=== PATIENT | male | born 1960 | race Caucasian/White ===

== ENCOUNTER 2024-08-31 18:38 | Inpatient (IN) | payer MEDICARE ==
[2024-08-31 19:33] LABS: INR 1.7 (<1.2); Prothrombin Time 17.3 sec (10.0-12.5)
[2024-08-31 19:38] LABS: ALT 14 U/L (4-49); African American GFR (CKD) 26 (>60 ml/min/1.73 sqM); Anion Gap 12 mmol/L; Blood Urea Nitrogen 100 mg/dL (9-20); Calcium 7.5 mg/dL (8.4-10.2); Carbon Dioxide 25 mmol/L (22-30); Chloride 103 mmol/L (98-107); Glucose 95 mg/dL (74-99); Lipase 81 U/L (23-300); Non-African American GFR(CKD) 22 (>60 ml/min/1.73 sqM); Sodium 140 mmol/L (137-145)
[2024-08-31 19:40] LABS: AST 91 U/L (17-59); Albumin 2.6 g/dL (3.5-5.0); Alkaline Phosphatase 34 U/L (38-126); Potassium 4.7 mmol/L (3.5-5.1); Total Protein 5.1 g/dL (6.3-8.2)
[2024-08-31 19:47] LABS: Basophils # (A) 0.1 k/uL (0-0.2); Basophils % (A) 1 %; Eosinophils % (A) 0 %; HGB 15.1 gm/dL (13.0-17.5); Lymphocytes # (A) 0.8 k/uL (1.0-4.8); Lymphocytes % (A) 6 %; MCH 29.6 pg (25.0-35.0); MCHC 33.6 g/dL (31.0-37.0); MCV 88.2 fL (80.0-100.0); Mean Platelet Volume 7.9; Monocytes # (A) 0.8 k/uL (0-1.0); Monocytes % (A) 7 %; Neutrophils # (A) 9.9 k/uL (1.3-7.7); Neutrophils % (A) 84 %; Platelet Count 299 k/uL (150-450); RBC 5.11 m/uL (4.30-5.90); RDW 13.7 % (11.5-15.5); WBC 11.7 k/uL (3.8-10.6)
[2024-08-31] MEDS: SODIUM CHLORIDE 0.9% 2,000 ML IV ONE (19:52)
[2024-08-31 19:53] LABS: Influenza A Not Detected (Not Detectd); Influenza B Not Detected (Not Detectd); RSV Not Detected (Not Detectd)
[2024-08-31] MEDS: ACETAMINOPHEN IV (For NPO) 1,000 MG in EMPTY BAG 1 BAG IVPB STA (20:20)
--- NOTE | 2024-08-31 20:28 | XR ---
EXAMINATION TYPE: XR chest 1V portable DATE OF EXAM: 08/31/2024 7:19 PM COMPARISON: None. CLINICAL INDICATION: Male, 63 years old with history of abdominal pain, TECHNIQUE: XR chest 1V portable view(s) obtained. FINDINGS: The heart size is normal. The pulmonary vasculature is normal. Bibasilar infiltrates are present. Correlate for atelectasis. Electronic device overlies left chest IMPRESSION: 1. Bibasilar infiltrates. Correlate for atelectasis. [facility], , 08/31/2024 8:25 PM
[2024-08-31] MEDS: cefTRIAXone IN SWFI 1,000 MG/10 ML SYRINGE IVP STA (20:52)
--- NOTE | 2024-08-31 21:14 | ED ---
SOB HPI - General Chief Complaint: Shortness of Breath Stated Complaint: Flu like symptoms Time Seen by Provider: 08/31/24 18:42 Source: EMS Mode of arrival: EMS - History of Present Illness Initial Comments: 63-year-old male with past medical history of Parkinson's with deep brain stimulator who presents emergency department with nausea, vomiting and increased work of breathing. EMS states that the patient has been sick for the past couple of days. Family did take him to an urgent care yesterday as they were concerned for COVID. Patient had some low blood pressure readings but urgent care sent him home after his swab was negative. He has had some vomiting with lethargy. No reported fevers. EMS reported that the patient had some brown emesis. Patient can minimally provide history due to his respiratory rate of 56. He does have coarse upper airway sounds. No falls. Family states that he was recently hospitalized at [facility] as he was reporting abdominal pain. They found that the patient had "1 functioning kidney". They state that his ki dney function was normal when he left the hospital. He did follow-up with a urologist 1 week ago and had laboratory studies and a urine completed as well as postvoid residuals and the patient had no issues. Patient denies any chest pain. EMS reported that he vomited on the way in and therefore they gave him 4 mg of Zofran. His oxygen saturation was 74%. Patient does not wear oxygen. Remainder of HPI is limited as family is not available for several hours and we have no next of kin listed in the patient's chart - Related Data Home Medications Medication Instructions Recorded Confirmed Atorvastatin [Lipitor] 20 mg PO HS@1800 08/31/24 08/31/24 Carbidopa-Levodopa 25-100 mg 1 tab PO TID@0600,1400,1800 08/31/24 08/31/24 [Sinemet 25-100] atenoloL [Tenormin] 25 mg PO DAILY@0600 08/31/24 08/31/24 Allergies Allergy/AdvReac Type Severity Reaction Status Date / Time No Known Allergies Allergy Verified 08/31/24 20:47 Review of Systems ROS Statement: Those systems with pertinent positive or pertinent negative responses have been documented in the HPI. ROS Other: All systems not noted in ROS Statement are negative. Past Medical History Past Medical History: Hypertension Additional Past Medical History / Comment(s): parkinsons History of Any Multi-Drug Resistant Organisms: None Reported Past Surgical History: No Surgical Hx Reported Additional Past Surgical History / Comment(s): deep brain stimulator Past Psychological History: No Psychological Hx Reported Smoking Status: Former smoker Past Alcohol Use History: Occasional Past Drug Use History: Marijuana General Exam Limitations: altered mental status General appearance: lethargic Head exam: Present: atraumatic, normocephalic, normal inspection ENT exam: Present: mucous membranes dry, other (Dried brown emesis around mouth) Respiratory exam: Present: rhonchi, accessory muscle use, decreased breath sounds, other (Tachypnea) Cardiovascular Exam: Present: normal rhythm, tachycardia, normal heart sounds. Absent: systolic murmur, diastolic murmur, rubs, gallop, clicks GI/Abdominal exam: Present: distended exam: Present: scrotal swelling. Absent: testicular tenderness Neurological exam: Present: altered Psychiatric exam: Present: flat affect Course Vital Signs 08/31/24 08/31/24 08/31/24 18:41 19:21 19:49 Temperature 97.9 F 102.1 F H Pulse Rate 105 H 108 H Respiratory 30 H 56 H Rate Blood Pressure 119/55 85/52 O2 Sat by Pulse 95 91 L Oximetry Fraction of 100 Inspired Oxygen (FIO2) 08/31/24 08/31/24 08/31/24 20:07 21:42 23:30 Temperature 99.3 F 100.0 F H Pulse Rate 101 H 101 H 110 H Respiratory 52 H 38 H 34 H Rate Blood Pressure 105/83 94/66 85/54 O2 Sat by Pulse 90 L 92 L 90 L Oximetry Fraction of Inspired Oxygen (FIO2) 08/31/24 08/31/24 09/01/24 23:47 23:53 00:09 Temperature 99.5 F Pulse Rate 112 H 112 H Respiratory 36 H 28 H Rate Blood Pressure 78/47 101/60 O2 Sat by Pulse 80 L 84 L Oximetry Fraction of 100 Inspired Oxygen (FIO2) Medical Decision Making - Medical Decision Making Was pt. sent in by a medical professional or institution (, PA, ASSESSMENT COORDINATOR, urgent care, hospital, or residential...) When possible be specific @ -No Did you speak to anyone other than the patient for history (EMS, parent, family, police, friend...)? What history was obtained from this source @ -Spoke with EMS for history. I spoke with family when they showed up 2 hours into the patient's visit Did you review nursing and triage notes (agree or disagree)? Why? @ -I reviewed and agree with nursing and triage notes Were old charts reviewed (outside hosp., previous admission, EMS record, old EKG, old radiological studies, urgent care reports/EKG's, residential records)? Report findings @ -No old charts were reviewed Differential Diagnosis (chest pain, altered mental status, abdominal pain women, abdominal pain men, vaginal bleeding, weakness, fever, dyspnea, syncope, headache, dizziness, GI bleed, back pain, seizure, CVA, palpatations, mental health, musculoskeletal)? @ -Differential Dyspnea: Coronary syndrome, arrhythmia, tamponade, asthma, COPD, pulmonary embolism, pneumonia, pneumothorax, pulmonary effusion, anaphylaxis, diabetic ketoacidosis, flailed chest, pulmonary contusion, diaphragmatic rupture, anemia, neuromuscular, this is not meant to be an all-inclusive list. EKG interpreted by me (3pts min.). @ -Yes and demonstrates significant artifact due to stimulator. Rate of 105. QTc of 402 X-rays interpreted by me (1pt min.). @ -Yes which is interpreted to me as bibasilar pneumonia, possible aspiration CT interpreted by me (1pt min.). @ -Yes which demonstrates partial small bowel obstruction U/S interpreted by me (1pt. min.). @ -None done What testing was considered but not performed or refused? (CT, X-rays, U/S, labs)? Why? @ -None What meds were considered but not given or refused? Why? @ -Etomidate and succinylcholine were ordered as patient was tachypneic, hypotensive and minimally responsive. Patient found to have a high temp of 102. He was administered Ofirmev. Patient trialed on a BiPAP and does have improvement in his status. Patient no longer tachycardic, hypotensive or hypoxic. He does answer questions appropriately and therefore intubation is held Did you discuss the management of the patient with other professionals (professionals i.e. , PA, ASSESSMENT COORDINATOR, lab, RT, psych nurse, social work associate, flash ranging crewmember, teacher, consumer safety officer, child support case officer)? Give summary @ - Sheet for admission. Also spoke with Dr. Neal from the ICU due to the critical status of the patient Was smoking cessation discussed for >3mins.? @ -No Was critical care preformed (if so, how long)? @ -Yes, 35 minutes for BiPAP respiratory failure, aspiration, possible small bowel obstruction Were there social determinants of health that impacted care today? How? (Homelessness, low income, unemployed, alcoholism, drug addiction, transportation, low edu. Level, literacy, decrease access to med. care, [facility], rehab)? @ -No Was there de-escalation of care discussed even if they declined (Discuss DNR or withdrawal of care, Hospice)? DNR status @ -No What co-morbidities impacted this encounter? (DM, HTN, Smoking, COPD, CAD, Cancer, CVA, ARF, Chemo, Hep., AIDS, mental health diagnosis, sleep apnea, morbid obesity)? @ -Parkinson's Was patient admitted / discharged? Hospital course, mention meds given and route, prescriptions, significant lab abnormalities, going to OR and other pertinent info. @ -Upon arrival patient seen and evaluated in room 1. History is obtained from EMS. Patient originally on a nonrebreather however oxygen saturations are in the 80s. He is moved to a BiPAP. Patient found to have 102 fever. He is fluid resuscitated and given Ofirmev. We did trial him on the BiPAP and his vital signs do improve. Patient given 2 g Rocephin for suspected sepsis. Source is i dentified after chest x-ray was performed and due to my concern for aspiration I did broaden the antibiotics. Family does show up at this time and provides history. They are agreeable that the patient is a full code. Next of kin is the niece. Patient does have a full-time caregiver. CT is performed due to the history of vomiting. Patient does have a questionable small bowel obstruction. NG tube was placed. I did call to speak with Dr. Neal as patient is critically ill. I spoke to Dr. Lopez for the admission Undiagnosed new problem with uncertain prognosis? @ -No Drug Therapy requiring intensive monitoring for toxicity (Heparin, Nitro, Insulin, Cardizem)? @ -No Were any procedures done? @ -NG tube placement Diagnosis/symptom? @ -Acute hypoxic respiratory failure, BiPAP dependence, suspected aspiration pneumonia, possible small bowel obstruction, history of Parkinson's with deep brain stimulator Acute, or Chronic, or Acute on Chronic? @ -Acute Uncomplicated (without systemic symptoms) or Complicated (systemic symptoms)? @ -Complicated Side effects of treatment? @ -No Exacerbation, Progression, or Severe Exacerbation? @ -No Poses a threat to life or bodily function? How? (Chest pain, [place], [place], pneumonia, PE, COPD, DKA, ARF, appy, cholecystitis, CVA, Diverticulitis, Homicidal, Suicidal, threat to staff... and all critical care pts) @ -Yes this patient is critically ill - Lab Data Result diagrams: 09/02/24 02:30 09/02/24 02:30 Lab Results 08/31/24 08/31/24 08/31/24 Range/Units 18:50 18:55 19:09 WBC 11.7 H (3.8-10.6) k/uL RBC 5.11 (4.30-5.90) m/uL Hgb 15.1 (13.0-17.5) gm/dL Hct 45.0 (39.0-53.0) % MCV 88.2 (80.0-100.0) fL MCH 29.6 (25.0-35.0) pg MCHC 33.6 (31.0-37.0) g/dL RDW 13.7 (11.5-15.5) % Plt Count 299 (150-450) k/uL MPV 7.9 Neutrophils % 84 % Lymphocytes % 6 % Monocytes % 7 % Eosinophils % 0 % Basophils % 1 % Neutrophils # 9.9 H (1.3-7.7) k/uL Lymphocytes # 0.8 L (1.0-4.8) k/uL Monocytes # 0.8 (0-1.0) k/uL Eosinophils # 0.0 (0-0.7) k/uL Basophils # 0.1 (0-0.2) k/uL Manual Slide Review Performed PT (10.0-12.5) sec INR (<1.2) APTT (22.0-30.0) sec Sodium (137-145) mmol/L Potassium (3.5-5.1) mmol/L Chloride (98-107) mmol/L Carbon Dioxide (22-30) mmol/L Anion Gap mmol/L BUN (9-20) mg/dL Creatinine (0.66-1.25) mg/dL Est GFR (CKD-EPI)AfAm (>60 ml/min/1.73 sqM) Est GFR (CKD-EPI)NonAf (>60 ml/min/1.73 sqM) Glucose (74-99) mg/dL Lactic Ac Sepsis Rflx Plasma Lactic Acid Maciel (0.7-2.0) mmol/L Calcium (8.4-10.2) mg/dL Total Bilirubin (0.2-1.3) mg/dL AST (17-59) U/L ALT (4-49) U/L Alkaline Phosphatase (38-126) U/L Total Protein (6.3-8.2) g/dL Albumin (3.5-5.0) g/dL Lipase (23-300) U/L Urine Color Urine Appearance (Clear) Urine pH (5.0-8.0) Ur Specific Colgate (1.001-1.035) Urine Protein (Negative) Urine Glucose (UA) (Negative) Urine Ketones (Negative) Urine Blood (Negative) Urine Nitrite (Negative) Urine Bilirubin (Negative) Urine Urobilinogen (<2.0) mg/dL Ur Leukocyte Esterase (Negative) Influenza Type A (PCR) (Not Detectd) Influenza Type B (PCR) (Not Detectd) RSV (PCR) (Not Detectd) SARS-CoV-2 (PCR) (Not Detectd) Blood Type O Positive Blood Type Confirm O Positive Blood Type Recheck No Previous Record Bld Type Recheck Status CABO Indicated Antibody Screen NEGATIVE Spec Expiration Date 09/03/2024234908/31/24 08/31/24 08/31/24 Range/Units 19:09 19:09 19:09 WBC (3.8-10.6) k/uL RBC (4.30-5.90) m/uL Hgb (13.0-17.5) gm/dL Hct (39.0-53.0) % MCV (80.0-100.0) fL MCH (25.0-35.0) pg MCHC (31.0-37.0) g/dL RDW (11.5-15.5) % Plt Count (150-450) k/uL MPV Neutrophils % % Lymphocytes % % Monocytes % % Eosinophils % % Basophils % % Neutrophils # (1.3-7.7) k/uL Lymphocytes # (1.0-4.8) k/uL Monocytes # (0-1.0) k/uL Eosinophils # (0-0.7) k/uL Basophils # (0-0.2) k/uL Manual Slide Review PT 17.3 H (10.0-12.5) sec INR 1.7 H (<1.2) APTT 24.0 (22.0-30.0) sec Sodium 140 (137-145) mmol/L Potassium 4.7 (3.5-5.1) mmol/L Chloride 103 (98-107) mmol/L Carbon Dioxide 25 (22-30) mmol/L Anion Gap 12 mmol/L BUN 100 H (9-20) mg/dL Creatinine 2.84 H (0.66-1.25) mg/dL Est GFR (CKD-EPI)AfAm 26 (>60 ml/min/1.73 sqM) Est GFR (CKD-EPI)NonAf 22 (>60 ml/min/1.73 sqM) Glucose 95 (74-99) mg/dL Lactic Ac Sepsis Rflx Plasma Lactic Acid Maciel 2.7 H* (0.7-2.0) mmol/L Calcium 7.5 L (8.4-10.2) mg/dL Total Bilirubin 2.0 H (0.2-1.3) mg/dL AST 91 H (17-59) U/L ALT 14 (4-49) U/L Alkaline Phosphatase 34 L (38-126) U/L Total Protein 5.1 L (6.3-8.2) g/dL Albumin 2.6 L (3.5-5.0) g/dL Lipase 81 (23-300) U/L Urine Color Urine Appearance (Clear) Urine pH (5.0-8.0) Ur Specific Colgate (1.001-1.035) Urine Protein (Negative) Urine Glucose (UA) (Negative) Urine Ketones (Negative) Urine Blood (Negative) Urine Nitrite (Negative) Urine Bilirubin (Negative) Urine Urobilinogen (<2.0) mg/dL Ur Leukocyte Esterase (Negative) Influenza Type A (PCR) (Not Detectd) Influenza Type B (PCR) (Not Detectd) RSV (PCR) (Not Detectd) SARS-CoV-2 (PCR) (Not Detectd) Blood Type Blood Type Confirm Blood Type Recheck Bld Type Recheck Status Antibody Screen Spec Expiration Date 08/31/24 08/31/24 08/31/24 Range/Units 19:09 19:41 21:04 WBC (3.8-10.6) k/uL RBC (4.30-5.90) m/uL Hgb (13.0-17.5) gm/dL Hct (39.0-53.0) % MCV (80.0-100.0) fL MCH (25.0-35.0) pg MCHC (31.0-37.0) g/dL RDW (11.5-15.5) % Plt Count (150-450) k/uL MPV Neutrophils % % Lymphocytes % % Monocytes % % Eosinophils % % Basophils % % Neutrophils # (1.3-7.7) k/uL Lymphocytes # (1.0-4.8) k/uL Monocytes # (0-1.0) k/uL Eosinophils # (0-0.7) k/uL Basophils # (0-0.2) k/uL Manual Slide Review PT (10.0-12.5) sec INR (<1.2) APTT (22.0-30.0) sec Sodium (137-145) mmol/L Potassium (3.5-5.1) mmol/L Chloride (98-107) mmol/L Carbon Dioxide (22-30) mmol/L Anion Gap mmol/L BUN (9-20) mg/dL Creatinine (0.66-1.25) mg/dL Est GFR (CKD-EPI)AfAm (>60 ml/min/1.73 sqM) Est GFR (CKD-EPI)NonAf (>60 ml/min/1.73 sqM) Glucose (74-99) mg/dL Lactic Ac Sepsis Rflx Y Plasma Lactic Acid Maciel (0.7-2.0) mmol/L Calcium (8.4-10.2) mg/dL Total Bilirubin (0.2-1.3) mg/dL AST (17-59) U/L ALT (4-49) U/L Alkaline Phosphatase (38-126) U/L Total Protein (6.3-8.2) g/dL Albumin (3.5-5.0) g/dL Lipase (23-300) U/L Urine Color Yellow Urine Appearance Clear (Clear) Urine pH 5.5 (5.0-8.0) Ur Specific Colgate 1.026 (1.001-1.035) Urine Protein Trace H (Negative) Urine Glucose (UA) Negative (Negative) Urine Ketones Negative (Negative) Urine Blood Negative (Negative) Urine Nitrite Negative (Negative) Urine Bilirubin 1+ H (Negative) Urine Urobilinogen 4.0 (<2.0) mg/dL Ur Leukocyte Esterase Negative (Negative) Influenza Type A (PCR) Not Detected (Not Detectd) Influenza Type B (PCR) Not Detected (Not Detectd) RSV (PCR) Not Detected (Not Detectd) SARS-CoV-2 (PCR) Not Detected (Not Detectd) Blood Type Blood Type Confirm Blood Type Recheck Bld Type Recheck Status Antibody Screen Spec Expiration Date Disposition Clinical Impression: Hypoxia, Aspiration pneumonia, Vomiting, BiPAP (biphasic positive airway pressure) dependence, Fever, Urinary retention Disposition: ADMITTED IP TO THIS HOSP Condition: Serious Is patient prescribed a controlled substance at d/c from ED?: No Time of Disposition: 21:35 Decision to Admit Reason: Admit from EC Decision Date: 08/31/24 Decision Time: 21:36
[2024-08-31 21:17] LABS: Appearance,Urine Clear (Clear); Bilirubin,Urine 1+ (Negative); Blood,Urine Negative (Negative); Color,Urine Yellow; Glucose,Urine (UA) Negative (Negative); Ketones,Urine Negative (Negative); Leukocyte Esterase,Urine Negative (Negative); Nitrite,Urine Negative (Negative); PH, Urine 5.5 (5.0-8.0); Protein,Urine Trace (Negative); Specific Gravity,Urine 1.026 (1.001-1.035)
[2024-08-31] MEDS ORDERED: NALOXONE 0.4 MG/ML 1 ML VIAL IV PRN (21:36)
[2024-08-31] MEDS: ETOMIDATE 2 MG/ML 10 ML VIAL IVP STA (22:34)
[2024-08-31] MEDS: ROCURONIUM 10 MG/ML (5 ML VIAL) IV ONE (22:34)
[2024-08-31] MEDS: LEVOFLOXACIN 750MG-D5W PMX 750 MG in DEXTROSE/WATER 1 150ML.BAG IVPB SCH (22:39)
--- NOTE | 2024-08-31 22:39 | CT ---
EXAMINATION TYPE: CT abdomen pelvis wo con DATE OF EXAM: 08/31/2024 9:51 PM COMPARISON: None. CLINICAL INDICATION: Male, 63 years old with history of vomiting, From home, flu like symptoms, hypox ic TECHNIQUE: Axial images were obtained from above the diaphragm to the pubic rami in the axial plane a t 5 mm thick sections. Reconstructed images are reviewed on the computer in the coronal plane. CONTRAST: mL of . Study performed without Oral Contrast DLP: 1139.4 mGycm, Automated exposure control for dose reduction was used. FINDINGS: Limited CT sections are obtained the lung bases. Consolidation is in the left lower lobe. Small bila teral pleural effusions are present. Some consolidation with air bronchograms may be in the right low er lobe. Coronary artery calcification is present.. CT ABDOMEN: Liver: Normal Spleen: Normal Pancreas: Normal Adrenal glands: The adrenal glands are normal. Gallbladder: Normal Kidneys: No masses are evident. Marked hydronephrosis is present on the right kidney. Hydroureter is not identified below the renal pelvis. Mild left hydronephrosis or hydroureter evident. No cysts are present. Aorta: Vascular calcification is within the aorta. Inferior vena cava: Normal. CT PELVIS: There is a right inguinal hernia contains a loop of small bowel. Complete Obstruction is n ot clearly identified. However, there may be some mild obstruction or ileus prominent fluid-filled sm all bowel loops. Colon has a normal appearance without evidence of obstruction. Fecal debris is withi n the ascending and transverse colon with mild debris in the descending colon Fecal debris is within the distal colon. This study is now oral contrast limiting bowel evaluation. Appendix: Normal as visualized. Urinary bladder: Decompressed with a Davenport catheter Genitourinary structures: Prostate appears normal Osseous structures: No suspicious lytic or sclerotic lesions. Facet degenerative changes are present. This is contributing to spinal canal narrowing within the lower lumbar spine. IMPRESSION: 1. Bibasilar consolidations with air bronchograms and pleural effusions. Correlate for pneumonia and atelectasis. 2. Right inguinal hernia may has some mild partial small bowel obstruction. 3. Normal caliber colon with mild fecal retention. Colonic obstruction is not evident. 4. Marked right hydronephrosis at the ureteral pelvic junction of uncertain etiology. [facility], , 08/31/2024 10:36 PM
[2024-08-31] MEDS: SODIUM CHLORIDE 0.9% 1,000 ML IV SCH (22:43)
[2024-08-31] MEDS: ONDANSETRON 4 MG/2 ML VIAL IVP PRN (23:50)
[2024-09-01 00:40] LABS: Glucose,Whole Blood 104 mg/dL (70-110)
[2024-09-01] MEDS: NOREPINEPHRINE 4 MG in SODIUM CHLORIDE 0.9% 250 ML IV SCH (01:00)
[2024-09-01] MEDS: SODIUM CHLORIDE 0.9% 1,000 ML IV ONE (01:00)
[2024-09-01] MEDS: PIPERACILLIN-TAZOBACTAM 3.375 GM in SODIUM CHLORIDE 0.9% 100 ML IVPB SCH (01:37)
[2024-09-01] MEDS: SODIUM BICARB 8.4% 50 ML SYR (1 MEQ/ML) IV STA (01:37)
[2024-09-01 01:53] LABS: Amorphous Sediment,Urine Occasional /hpf; Appearance,Urine Cloudy (Clear); Bacteria,Urine Rare /hpf; Bilirubin,Urine 1+ (Negative); Blood,Urine Moderate (Negative); Color,Urine Dark Brown; Glucose,Urine (UA) Negative (Negative); Granular Casts,Urine 27 /lpf (0); Hyaline Casts,Urine 317 /lpf (0-2); Ketones,Urine Negative (Negative); Leukocyte Esterase,Urine Negative (Negative); Mucus,Urine Occasional /hpf; Nitrite,Urine Negative (Negative); Protein,Urine 1+ (Negative); RBC,Urine 4 /hpf (0-5); Specific Gravity,Urine 1.023 (1.001-1.035); Squamous Epithelial Cell,Urine 3 /hpf (0-4); Urobilinogen,Urine >12.0 mg/dL (<2.0); WBC,Urine 13 /hpf (0-5)
--- NOTE | 2024-09-01 02:26 | XR ---
EXAM: XR Chest, 1 View CLINICAL HISTORY: ITS.REASON XR Reason: intubate and OG placement TECHNIQUE: Frontal view of the chest. COMPARISON: No relevant prior studies available. IMPRESSION: Feeding tube in good position
[2024-09-01] MEDS ORDERED: NOREPINEPHRINE 4 MG in SODIUM CHLORIDE 0.9% 250 ML IV SCH (02:30)
--- NOTE | 2024-09-01 02:53 | P.PCN ---
Date of Procedure: 09/01/24 Preoperative Diagnosis: Acute hypoxemic and hypercapnic respiratory failure, hypotension Postoperative Diagnosis: Acute hypoxemic and hypercapnic respiratory failure, hypotension Procedure(s) Performed: Insertion of a right radial arterial line Indications for Procedure: Continuous blood pressure monitoring and frequent blood draws Description of Procedure: Emergent consent was obtained, and a procedural timeout was performed . The patient was placed in supine position. The right radial region was prepared in a sterile fashion, and a sterile drape was applied. The right radial artery was palpated, easily cannulated, and a guidewire was placed. A Cook catheter was inserted over the guidewire, and the guidewire was removed. There was good arterial blood flow, good arterial waveform, and no complications. The line was secured with using a 3-0 silk suture.
[2024-09-01] MEDS: SODIUM CHLORIDE 0.9% 750 ML IV ONE (02:59)
[2024-09-01 03:40] LABS: African American GFR (CKD) 27 (>60 ml/min/1.73 sqM); Anion Gap 10 mmol/L; Carbon Dioxide 24 mmol/L (22-30); Chloride 110 mmol/L (98-107); Glucose 86 mg/dL (74-99); Non-African American GFR(CKD) 23 (>60 ml/min/1.73 sqM); Potassium 3.8 mmol/L (3.5-5.1); Sodium 144 mmol/L (137-145)
[2024-09-01 03:57] LABS: Blood Urea Nitrogen 101 mg/dL (9-20); Calcium 6.2 mg/dL (8.4-10.2)
[2024-09-01 04:05] LABS: Basophils % (A) 0 %; Eosinophils % (A) 0 %; HGB 13.2 gm/dL (13.0-17.5); Lymphocytes # (A) 0.4 k/uL (1.0-4.8); Lymphocytes % (A) 4 %; MCH 29.3 pg (25.0-35.0); MCV 88.7 fL (80.0-100.0); Mean Platelet Volume 7.4; Monocytes # (A) 0.5 k/uL (0-1.0); Monocytes % (A) 5 %; Neutrophils % (A) 90 %; Platelet Count 228 k/uL (150-450); RBC 4.51 m/uL (4.30-5.90); RDW 13.9 % (11.5-15.5); WBC 11.2 k/uL (3.8-10.6)
[2024-09-01] MEDS: IPRATROPIUM-ALBUTEROL 3 ML NEB INHALATION SCH (04:51)
[2024-09-01 05:21] LABS: ABG Base Excess -1.2 mmol/L; ABG HCO3 23 mmol/L (21-25); ABG Oxygen Saturation 94.1 % (94-97); ABG PCO2 37 mmHg (35-45); ABG PO2 72 mmHg (83-108); ABG TCO2 24 mmol/L (19-24)
--- NOTE | 2024-09-01 05:50 | XR ---
EXAM: XR Chest, 1 View CLINICAL HISTORY: POSS GI BLEED TECHNIQUE: Frontal view of the chest. COMPARISON: No relevant prior studies available. IMPRESSION: ET tube in good position. Bibasilar opacities. Possible trace effusions.
[2024-09-01] MEDS: CALCIUM GLUCONATE IN NACL 2 GM in SALINE 1 100ML.BAG IVPB ONE (06:02)
[2024-09-01] MEDS: CARBIDOPA-LEVODOPA 25-100 MG 1 EACH TAB PO SCH (06:08)
--- NOTE | 2024-09-01 06:10 | P.CNPUL ---
History of Present Illness Consult date: 09/01/24 Requesting physician: Ruthann Baron Reason for consult: other (Aspiration pneumonia and respiratory failure) Chief complaint: Nausea, vomiting, respiratory distress History of present illness: Patient is a 63-year-old male with past medical history significant for Parkinson disease, with nerve brain stimulator hypertension, hyperlipidemia. According to the ER note, patient has had a couple days of nausea, vomiting, and shortness of breath. Found to be increasingly lethargic while at home and EMS was called. Noted to have brown emesis and around by EMS. Of note, reportedly had a recent hospitalization at [facility] for issues with his kidney function. On arrival to the ED, noted to be in some respiratory distress, placed on BiPAP with initial settings 10/5 and FiO2 100%. He did have a CT of the abdomen and pelvis which demonstrated bibasilar airspace consolidations with air bronchograms and small bilateral effusions. Also, right inguinal hernia containing loop of small bowel and possible partial small bowel obstruction. Normal caliber colon with mild fecal retention. Marked right-sided hydronephrosis at the ureteropelvic junction. A nasogastric tube was inserted in the emergency department for gastric decompression, and a total of 1 L of brown fecal like content was immediately evacuated. On my initial evaluation in the emergency department, patient was in trauma bay 2. He was comatose state and obviously unable to protect his airway. He was on BiPAP with above-mentioned settings. Breathing in the high 30s. SpO2 was reading 80%. Patient obviously needed to be intubated. RESCUE INSTRUCTOR was called and rapid sequence intubation was carried out. Initial ventilator settings included AC, respiratory rate 20, tidal volume of 500, FiO2 100%, PEEP of 5. During intubation, patient had a large volume of presumably gastric contents pulling in his posterior oropharynx. Postintubation chest x-ray shows the endotracheal tube in appropriate position above the renan, there is orogastric tube coursing below the diaphragm. There continues to have bibasilar consolidations and probable small pleural effusions. Following intubation, patient became profoundly hypotensive, he is currently receiving a normal saline bolus. He was placed on Levaquin in the emergency department. There is no obvious concern for aspiration pneumonia. CBC: WBC count 11.7, hemoglobin 15.1, hematocrit 45, platelets 299. CMP: Sodium 140, potassium 4.7, chloride 103, serum bicarb 25, BUN 100, creatinine 2.84, glucose 95. Lactic 1.4. LFTs mildly elevated. Pancreatic lipase is 81. Troponin 0.032. Is negative for influenza, RSV, COVID. Unfortunately, we are unable to get a hold of family at this time. Patient is listed as a full code. Review of Systems ROS unobtainable: due to endotracheal tube, due to mental status Past Medical History Past Medical History: Hypertension Additional Past Medical History / Comment(s): parkinsons History of Any Multi-Drug Resistant Organisms: None Reported Past Surgical History: No Surgical Hx Reported Additional Past Surgical History / Comment(s): deep brain stimulator Past Psychological History: No Psychological Hx Reported Smoking Status: Former smoker Past Alcohol Use History: Occasional Past Drug Use History: Marijuana Medications and Allergies Home Medications Medication Instructions Recorded Confirmed Type Atorvastatin [Lipitor] 20 mg PO HS@1800 08/31/24 08/31/24 History Carbidopa-Levodopa 25-100 mg 1 tab PO TID@0600,1400,1800 08/31/24 08/31/24 History [Sinemet 25-100] atenoloL [Tenormin] 25 mg PO DAILY@0600 08/31/24 08/31/24 History Allergies Allergy/AdvReac Type Severity Reaction Status Date / Time No Known Allergies Allergy Verified 08/31/24 20:47 Physical Exam Vitals: Vital Signs Temp Pulse Resp BP Pulse Ox FiO2 09/01/24 00:31 100 09/01/24 00:09 99.5 F 112 H 28 H 101/60 84 L 08/31/24 23:53 112 H 36 H 78/47 80 L 08/31/24 23:47 100 08/31/24 23:30 100.0 F H 110 H 34 H 85/54 90 L 08/31/24 21:42 99.3 F 101 H 38 H 94/66 92 L 08/31/24 20:07 101 H 52 H 105/83 90 L 08/31/24 19:49 102.1 F H 108 H 56 H 85/52 91 L 08/31/24 19:21 100 08/31/24 18:41 97.9 F 105 H 30 H 119/55 95 Intake and Output 08/31/24 08/31/24 09/01/24 14:59 22:59 06:59 Output Total 400 1100 Balance -400 -1100 Output: Gastric Drainage 1000 Urine 400 100 Other: Weight 90.718 kg GENERAL EXAM: 63-year-old male, now intubated to mechanical ventilator, synchr onous with set rate HEAD: Normocephalic and atraumatic EYES: Normal reaction of pupils, equal size. NOSE: Clear with pink turbinates. THROAT: No erythema or exudates. NECK: No masses, no JVD. CHEST: No chest wall deformity. Left chest implanted device LUNGS: Equal air entry with diffuse rhonchi and crackles. Intubated mechanical ventilator, peak pressures in the order of 30 to and static airway pressure 27. Minimal endotracheal secretions at this time. Small amounts of presumably gastric content was aspirated from the oropharynx. CVS: S1 and S2 normal with no audible murmur, regular rhythm. No extra heart sounds ABDOMEN: No hepatosplenomegaly, active bowel sounds, no guarding or rigidity. SPINE: No scoliosis or deformity SKIN: No rashes CENTRAL NERVOUS SYSTEM: Comatose and now minimally sedated on propofol, extremities flaccid no obvious focal deficits. EXTREMITIES: There is no peripheral edema, clubbing, or cyanosis. Peripheral pulses are intact. Results - Laboratory Findings CBC and BMP: 09/01/24 03:05 09/01/24 03:05 PT/INR, D-dimer PT 17.3 sec (10.0-12.5) H 08/31/24 19:09 INR 1.7 (<1.2) H 08/31/24 19:09 Abnormal lab findings: Abnormal Labs 08/31/24 08/31/24 08/31/24 19:09 19:09 19:09 WBC 11.7 H Neutrophils # 9.9 H Lymphocytes # 0.8 L PT 17.3 H INR 1.7 H BUN 100 H Creatinine 2.84 H Plasma Lactic Acid Maciel Calcium 7.5 L Total Bilirubin 2.0 H AST 91 H Alkaline Phosphatase 34 L Total Protein 5.1 L Albumin 2.6 L Urine Protein Urine Bilirubin 08/31/24 08/31/24 19:09 21:04 WBC Neutrophils # Lymphocytes # PT INR BUN Creatinine Plasma Lactic Acid Maciel 2.7 H* Calcium Total Bilirubin AST Alkaline Phosphatase Total Protein Albumin Urine Protein Trace H Urine Bilirubin 1+ H - Diagnostic Findings Chest x-ray: image reviewed Assessment and Plan Assessment: Acute hypoxemic and hypercapnic respiratory failure secondary to aspiration and bibasilar aspiration pneumonia, patient was intubated by RESCUE INSTRUCTOR, large-volume presumedly gastric contents pooling in the posterior oropharynx noted during intubation. CT of the abdomen and pelvis, demonstrating bibasilar airspace consolidations and air bronchograms and small bilateral effusions. Possible partial small bowel obstruction, CT of the abdomen and pelvis demonstrating right inguinal hernia containing loops of small bowel and possible partial small bowel obstruction. Normal caliber colon with mild fecal retention. Marked right-sided hydronephrosis at the ureteropelvic junction. No obvious stones reported on CT Acute kidney injury, possibly secondary to above Right-sided hydronephrosis Postintubation hypotension, patient is currently being fluid resuscitated, may require vasopressors to maintain MAP of 65 mmHg or greater History of hypertension History of hyperlipidemia History of Parkinson disease with nerve stimulator Plan: On my initial evaluation, patient was comatose in the emergency department, on BiPAP breathing in the high 30s and hypoxic. Rapid sequence intubation carried out at the bedside by RESCUE INSTRUCTOR Postintubation chest x-ray showing the endotracheal tube appropriately placed approximately 4 cm above the renan, there is an orogastric tube coursing below the diaphragm which could be advanced approximately 5 cm. Initial ABG drawn following intubation showing a PaO2 of 64, pCO2 49, and pH of 7.26 Appropriate ventilator changes were made including increasing the respiratory rate to 24, and PEEP of 10 Hypotension following intubation, patient is currently being fluid resuscitated with a total of 30 cc per kg, may require vasopressor support in the interim. Continue IV normal saline maintenance fluids Cover with empiric antibiotics for aspiration pneumonia Orogastric tube advanced 5 cm and is to LIS. Consult general surgery Consult urology for right-sided hydronephrosis and acute kidney injury Will continue to follow, additional recommendations to follow. Unfortunately, we are unable to get a hold of family at this time. Patient is listed as a full code, CODE STATUS was reportedly discussed with family by ER provider earlier. I have personally seen and examined the patient, performed the documentation and the assessment and plan as written. Number of minutes spent on the visit:20 This dictation was produced using [employer] software please excuse grammatical errors Time with Patient: Greater than 30
--- NOTE | 2024-09-01 08:17 | P.CON ---
Consult Note - . Consult date: 09/01/24 Assessment/Plan:: 63-year-old male with past medical history of Parkinson's with deep brain stimulator who presents emergency department with nausea, vomiting and increased work of breathing. The patient was noted to be hypoxic and diagnosed with aspiration pneumonia. He had a CT-AP which showed PSBO with a small bowel containing inguinal hernia. Review of Systems ROS unobtainable: due to endotracheal tube, due to mental status Past Medical History Past Medical History: Hypertension Additional Past Medical History / Comment(s): parkinsons History of Any Multi-Drug Resistant Organisms: None Reported Past Surgical History: No Surgical Hx Reported Additional Past Surgical History / Comment(s): deep brain stimulator Past Psychological History: No Psychological Hx Reported Smoking Status: Former smoker Past Alcohol Use History: Occasional Past Drug Use History: Marijuana Physical Exam GENERAL EXAM: 63-year-old male, now intubated to mechanical ventilator, synchronous with set rate HEAD: Normocephalic and atraumatic EYES: Normal reaction of pupils, equal size. NOSE: Clear with pink turbinates. THROAT: No erythema or exudates. NECK: No masses, no JVD. CHEST: No chest wall deformity. Left chest implanted device LUNGS: Equal air entry with diffuse rhonchi and crackles. Intubated mechanical ventilator, peak pressures in the order of 30 to and static airway pressure 27. Minimal endotracheal secretions at this time. Small amounts of presumably gastric content was aspirated from the oropharynx. CVS: S1 and S2 normal with no audible murmur, regular rhythm. No extra heart sounds ABDOMEN: No hepatosplenomegaly, active bowel sounds, no guarding or rigidity. SPINE: No scoliosis or deformity SKIN: No rashes CENTRAL NERVOUS SYSTEM: Comatose and now minimally sedated on propofol, extremities flaccid no obvious focal deficits. EXTREMITIES: There is no peripheral edema, clubbing, or cyanosis. Peripheral pulses are intact. 63 year old male with Aspiration PNA and Hypoxia. CT-AP shows a PSBO with a right inguinal hernia containing small bowel. -NPO -NGT-LIS -IV fluids -At this time it does not appear as hernia is causing a complete bowel obstruction and would manage conservatively given his Aspiration PNA and Hypoxia -[facility] [phone]
[2024-09-01] MEDS: HEPARIN SODIUM,PORCINE 5,000 UNIT/ML 1 ML VIAL SQ SCH (08:26)
[2024-09-01] MEDS: PANTOPRAZOLE 40 MG/10 ML VIAL IVP SCH (08:26)
[2024-09-01] MEDS: CHLORHEXIDINE GLUCONATE 15 ML CUP MUCOUS MEM SCH (08:26)
--- NOTE | 2024-09-01 09:06 | P.HPIM ---
History of Present Illness This is a pleasant 63 years old male who presents initially last night for flulike symptoms and found to be hypoxic. Also there was concerns of GI bleed On admission he was in respiratory distress and he has to be intubated and sylvia finesse on mechanical ventilation Currently he is in the ICU and he cannot provide information which was obtained from the staff and medical records. Patient currently is afebrile, blood pressure is stable after he started on pressors, patient was hypotensive in the emergency room. Blood pressure now 105/63 Labs reviewed showing WBC 11.2, creatinine 2.7, calcium was low 6.2 Troponin x 2 are negative at 0.03 and 0.02 Urine analysis is currently concentrated sample Chest x-ray showing bibasilar infiltrates which is also seen on the CT of the abdomen and pelvis. Patient has marked right hydronephrosis with apparent obstruction at the right renal pelvis, no obvious cause. Hemoglobin is normal at 13.2 Review of Systems ROS unobtainable: due to endotracheal tube, due to mental status Past Medical History Past Medical History: Hypertension Additional Past Medical History / Comment(s): parkinsons History of Any Multi-Drug Resistant Organisms: None Reported Past Surgical History: No Surgical Hx Reported Additional Past Surgical History / Comment(s): deep brain stimulator Past Psychological History: No Psychological Hx Reported Smoking Status: Former smoker Past Alcohol Use History: Occasional Past Drug Use History: Marijuana Medications and Allergies Home Medications Medication Instructions Recorded Confirmed Type Atorvastatin [Lipitor] 20 mg PO HS@1800 08/31/24 08/31/24 History Carbidopa-Levodopa 25-100 mg 1 tab PO TID@0600,1400,1800 08/31/24 08/31/24 History [Sinemet 25-100] atenoloL [Tenormin] 25 mg PO DAILY@0600 08/31/24 08/31/24 History Allergies Allergy/AdvReac Type Severity Reaction Status Date / Time No Known Allergies Allergy Verified 08/31/24 20:47 Physical Exam Vitals: Vital Signs Temp Pulse Resp BP Pulse Ox FiO2 09/01/24 05:15 97 23 82/43 93 L 09/01/24 05:00 96 20 89/60 92 L 09/01/24 04:52 96 09/01/24 04:46 100 09/01/24 04:45 99 16 92/63 92 L 09/01/24 04:30 96 17 95/66 91 L 09/01/24 04:15 97 21 79/33 83 L 09/01/24 04:00 99.2 F 98 23 104/70 87 L 100 09/01/24 03:45 98 20 105/68 87 L 09/01/24 03:30 98 22 97/72 88 L 09/01/24 03:15 98 20 115/70 88 L 09/01/24 03:00 96 23 104/64 89 L 09/01/24 02:45 100 19 105/37 09/01/24 02:30 100 19 99/65 88 L 09/01/24 02:15 103 H 19 113/67 85 L 09/01/24 02:00 101 H 25 H 96/68 89 L 09/01/24 01:45 105 H 19 123/85 88 L 09/01/24 01:30 104 H 24 105/57 85 L 09/01/24 01:15 103 H 20 94/43 88 L 09/01/24 01:00 111 H 17 58/38 83 L 100 09/01/24 00:54 100 09/01/24 00:45 111 H 30 H 105/73 80 L 100 09/01/24 00:37 75 L 09/01/24 00:31 100 09/01/24 00:09 99.5 F 112 H 28 H 101/60 84 L 08/31/24 23:53 112 H 36 H 78/47 80 L 08/31/24 23:47 100 08/31/24 23:30 100.0 F H 110 H 34 H 85/54 90 L 08/31/24 21:42 99.3 F 101 H 38 H 94/66 92 L 08/31/24 20:07 101 H 52 H 105/83 90 L 08/31/24 19:49 102.1 F H 108 H 56 H 85/52 91 L 08/31/24 19:21 100 08/31/24 18:41 97.9 F 105 H 30 H 119/55 95 Intake and Output 08/31/24 08/31/24 09/01/24 14:59 22:59 06:59 Intake Total 2370 Output Total 400 1350 Balance -400 1020 Intake: IV 2370 Piperacillin-Tazobactam 3 100 .375 gm In Sodium Chloride 0.9% 100 ml @ 25 mls/hr IVPB Q8H TRIP Rx#: [id number] Sodium Chloride 0.9% 1, 520 000 ml @ 130 mls/hr IV . Q7H42M TRIP Rx#:[id number] Sodium Chloride 0.9% 1, 1000 000 ml @ 999 mls/hr IV . Q1H1M ONE Rx#:[id number] Sodium Chloride 0.9% 750 750 ml @ 999 mls/hr IV .Q46M ONE Rx#:[id number] Output: Gastric Drainage 1000 Urine 400 350 Other: Voiding Method Indwelling Catheter Weight 90.718 kg ABP, PAP, CO, CI - Last 8 Hours Arterial Blood Pressure 75/48 Arterial Blood Pressure 83/53 Arterial Blood Pressure 81/52 Arterial Blood Pressure 92/56 Arterial Blood Pressure 85/51 Arterial Blood Pressure 88/51 Arterial Blood Pressure 88/53 Arterial Blood Pressure 91/53 Arterial Blood Pressure 91/52 Arterial Blood Pressure 89/59 Arterial Blood Pressure 86/55 -GENERAL: The patient is intubated and sedated HEENT: Pupils are round and equally reacting to light. EOMI. No scleral icterus. No conjunctival pallor. Normocephalic, atraumatic. No pharyngeal erythema. No thyromegaly. CARDIOVASCULAR: S1 and S2 present. No murmurs, rubs, or gallops. -PULMONARY: Chest is clear to auscultation, no wheezing , no crackles. Decreased air entry in both lower zones bilaterally ABDOMEN: Soft, nontender, nondistended, normoactive bowel sounds. No palpable organomegaly. MUSCULOSKELETAL: No joint swelling or deformity. EXTREMITIES: No cyanosis, clubbing, or pedal edema. NEUROLOGICAL: Gross neurological examination did not reveal any focal deficits. SKIN: No rashes. no petechiae. Results CBC & Chem 7: 09/01/24 03:05 09/01/24 03:05 Labs: Abnormal Lab Results - Last 24 Hours (Table) 08/31/24 08/31/24 08/31/24 Range/Units 19:09 19:09 19:09 WBC 11.7 H (3.8-10.6) k/uL Neutrophils # 9.9 H (1.3-7.7) k/uL Lymphocytes # 0.8 L (1.0-4.8) k/uL PT 17.3 H (10.0-12.5) sec INR 1.7 H (<1.2) ABG pO2 (83-108) mmHg Chloride (98-107) mmol/L BUN 100 H (9-20) mg/dL Creatinine 2.84 H (0.66-1.25) mg/dL Plasma Lactic Acid Maciel (0.7-2.0) mmol/L Calcium 7.5 L (8.4-10.2) mg/dL Total Bilirubin 2.0 H (0.2-1.3) mg/dL AST 91 H (17-59) U/L Alkaline Phosphatase 34 L (38-126) U/L Total Protein 5.1 L (6.3-8.2) g/dL Albumin 2.6 L (3.5-5.0) g/dL Urine Protein (Negative) Urine Blood (Negative) Urine Bilirubin (Negative) Urine WBC (0-5) /hpf Amorphous Sediment (None) /hpf Urine Bacteria (None) /hpf Hyaline Casts (0-2) /lpf Urine Mucus (None) /hpf 08/31/24 08/31/24 09/01/24 Range/Units 19:09 21:04 01:15 WBC (3.8-10.6) k/uL Neutrophils # (1.3-7.7) k/uL Lymphocytes # (1.0-4.8) k/uL PT (10.0-12.5) sec INR (<1.2) ABG pO2 (83-108) mmHg Chloride (98-107) mmol/L BUN (9-20) mg/dL Creatinine (0.66-1.25) mg/dL Plasma Lactic Acid Maciel 2.7 H* (0.7-2.0) mmol/L Calcium (8.4-10.2) mg/dL Total Bilirubin (0.2-1.3) mg/dL AST (17-59) U/L Alkaline Phosphatase (38-126) U/L Total Protein (6.3-8.2) g/dL Albumin (3.5-5.0) g/dL Urine Protein Trace H 1+ H (Negative) Urine Blood Moderate H (Negative) Urine Bilirubin 1+ H 1+ H (Negative) Urine WBC 13 H (0-5) /hpf Amorphous Sediment Occasional H (None) /hpf Urine Bacteria Rare H (None) /hpf Hyaline Casts 317 H (0-2) /lpf Urine Mucus Occasional H (None) /hpf 09/01/24 09/01/24 09/01/24 Range/Units 03:05 03:05 04:51 WBC 11.2 H (3.8-10.6) k/uL Neutrophils # 10.0 H (1.3-7.7) k/uL Lymphocytes # 0.4 L (1.0-4.8) k/uL PT (10.0-12.5) sec INR (<1.2) ABG pO2 72 L (83-108) mmHg Chloride 110 H (98-107) mmol/L BUN 101 H* (9-20) mg/dL Creatinine 2.77 H (0.66-1.25) mg/dL Plasma Lactic Acid Maciel (0.7-2.0) mmol/L Calcium 6.2 L* (8.4-10.2) mg/dL Total Bilirubin (0.2-1.3) mg/dL AST (17-59) U/L Alkaline Phosphatase (38-126) U/L Total Protein (6.3-8.2) g/dL Albumin (3.5-5.0) g/dL Urine Protein (Negative) Urine Blood (Negative) Urine Bilirubin (Negative) Urine WBC (0-5) /hpf Amorphous Sediment (None) /hpf Urine Bacteria (None) /hpf Hyaline Casts (0-2) /lpf Urine Mucus (None) /hpf Assessment and Plan Assessment: Acute hypoxic respiratory failure requiring intubation and mechanical ventilation Bibasilar pneumonia suspicious for aspiration pneumonia Acute kidney injury Marked right hydronephrosis History of Parkinson disease Plan: Continue in the ICU with pulmonary/critical care team consult Continue with mechanical ventilation as per ICU team. Patient started on Zosyn. Follow-up culture results Continue with normal saline at 130 mL/h with close monitoring of creatinine. Urology team consulted for his right hydronephrosis. Nephrology team consult General Surgery consulted for concerns for possible GI bleed. However his hemoglobin is stable currently GI prophylaxis: Protonix, continue with IV Protonix DVT prophylaxis: Mechanical prophylaxis Prognosis is guarded
[2024-09-01 09:52] LABS: ABG Base Excess -5.1 mmol/L; ABG HCO3 22 mmol/L (21-25); ABG Oxygen Saturation 86.9 % (94-97); ABG PCO2 49 mmHg (35-45); ABG PH 7.26 (7.35-7.45); ABG PO2 64 mmHg (83-108); ABG TCO2 24 mmol/L (19-24); Allen Test Performed? Yes
[2024-09-01] MEDS: CISATRACURIUM 2 MG/ML 5 ML VIAL IV ONE (10:29)
[2024-09-01] MEDS: VASOPRESSIN 60 UNIT in SODIUM CHLORIDE 0.9% 150 ML IV SCH (12:37)
--- NOTE | 2024-09-01 13:39 | P.NPCON ---
History of Present Illness - Reason for Consult acute renal failure - History of Present Illness patient is a 63-year-old male who was admitted to the hospital with history of feeling weak and fatigued and upper respiratory tract symptoms. Patient was noted to be in significant respiratory distress and was intubated. Serum creatinine was 2.8 on admission and it is 2.7 today. Patient has been hypotensive and currently maintained on pressors and IV fluids. Urine output at about 40-[address] of the abdomen shows markedly right hydronephrosis and mild left hydronephrosis. Patient's caregiver states that he was recently evaluated by urology out of town and was told that he has solitary functioning kidney. Details are currently not available. There is a left kidney identified on current CT. No previous labs available for comparison. Patient has not seen a supervisor carbon electrodes previously. Chest x-ray this admission shows bibasilar infiltrates. Large volume of gastric contents was aspirated during intubation. Past Medical History Past Medical History: Hyperlipidemia, Hypertension, Rheumatoid Arthritis (RA) Additional Past Medical History / Comment(s): parkinsons. skin cancer History of Any Multi-Drug Resistant Organisms: None Reported Past Surgical History: No Surgical Hx Reported Additional Past Surgical History / Comment(s): deep brain stimulator Past Anesthesia/Blood Transfusion Reactions: No Reported Reaction Past Psychological History: Anxiety Smoking Status: Former smoker Past Alcohol Use History: Occasional Past Drug Use History: Marijuana Medications and Allergies Home Medications Medication Instructions Recorded Confirmed Type Atorvastatin [Lipitor] 20 mg PO HS@1800 08/31/24 08/31/24 History Carbidopa-Levodopa 25-100 mg 1 tab PO TID@0600,1400,1800 08/31/24 08/31/24 History [Sinemet 25-100] atenoloL [Tenormin] 25 mg PO DAILY@0600 08/31/24 08/31/24 History Allergies Allergy/AdvReac Type Severity Reaction Status Date / Time No Known Allergies Allergy Verified 08/31/24 20:47 Physical Exam Vitals: Vital Signs Temp Pulse Resp BP Pulse Ox FiO2 09/01/24 12:36 102 H 09/01/24 12:28 110 H 09/01/24 12:25 100 09/01/24 12:15 110 H 32 H 107/64 94 L 09/01/24 12:00 98.8 F 110 H 32 H 106/62 94 L 100 09/01/24 11:45 110 H 33 H 109/61 94 L 09/01/24 11:30 110 H 32 H 96/59 94 L 09/01/24 11:15 111 H 29 H 121/73 93 L 09/01/24 11:00 108 H 27 H 109/62 97 09/01/24 10:45 112 H 30 H 114/72 96 09/01/24 10:30 109 H 28 H 98 09/01/24 10:15 103 H 30 H 106/71 95 09/01/24 10:00 101 H 32 H 104/67 95 09/01/24 09:45 102 H 31 H 101/65 96 09/01/24 09:30 105 H 30 H 106/66 95 09/01/24 09:15 104 H 33 H 100/69 95 09/01/24 09:00 105 H 34 H 100/57 95 09/01/24 08:45 101 H 32 H 105/65 96 09/01/24 08:30 102 H 33 H 113/65 95 09/01/24 08:15 98 31 H 113/68 94 L 09/01/24 08:14 90 09/01/24 08:07 92 09/01/24 08:00 98.6 F 92 32 H 96/55 96 100 09/01/24 07:56 100 09/01/24 07:45 95 32 H 97/63 93 L 09/01/24 07:30 96 33 H 94/61 93 L 09/01/24 07:15 93 34 H 103/60 93 L 09/01/24 07:00 94 36 H 105/63 96 09/01/24 06:45 93 34 H 99/67 97 09/01/24 06:30 89 33 H 96/64 96 09/01/24 06:15 93 22 91/58 97 09/01/24 06:00 89 30 H 108/68 96 09/01/24 05:45 96 28 H 88/56 96 09/01/24 05:30 93 25 H 87/57 95 09/01/24 05:15 97 23 82/43 93 L 09/01/24 05:00 96 20 89/60 92 L 09/01/24 04:52 96 09/01/24 04:46 100 09/01/24 04:45 99 16 92/63 92 L 09/01/24 04:30 96 17 95/66 91 L 09/01/24 04:15 97 21 79/33 83 L 09/01/24 04:00 99.2 F 98 23 104/70 87 L 100 09/01/24 03:45 98 20 105/68 87 L 09/01/24 03:30 98 22 97/72 88 L 09/01/24 03:15 98 20 115/70 88 L 09/01/24 03:00 96 23 104/64 89 L 09/01/24 02:45 100 19 105/37 09/01/24 02:30 100 19 99/65 88 L 09/01/24 02:15 103 H 19 113/67 85 L 09/01/24 02:00 101 H 25 H 96/68 89 L 09/01/24 01:45 105 H 19 123/85 88 L 09/01/24 01:30 104 H 24 105/57 85 L 09/01/24 01:15 103 H 20 94/43 88 L 09/01/24 01:00 111 H 17 58/38 83 L 100 09/01/24 00:54 100 09/01/24 00:45 111 H 30 H 105/73 80 L 100 09/01/24 00:37 75 L 09/01/24 00:31 100 09/01/24 00:09 99.5 F 112 H 28 H 101/60 84 L 08/31/24 23:53 112 H 36 H 78/47 80 L 08/31/24 23:47 100 08/31/24 23:30 100.0 F H 110 H 34 H 85/54 90 L 08/31/24 21:42 99.3 F 101 H 38 H 94/66 92 L 08/31/24 20:07 101 H 52 H 105/83 90 L 08/31/24 19:49 102.1 F H 108 H 56 H 85/52 91 L 08/31/24 19:21 100 08/31/24 18:41 97.9 F 105 H 30 H 119/55 95 Intake and Output 08/31/24 09/01/24 09/01/24 22:59 06:59 14:59 Intake Total 2894.531 1163.502 Output Total 400 1690 210 Balance -400 1204.531 953.502 Intake: IV 2733 765 Calcium Gluconate in NaCl 100 2 gm In Saline 1 100ml. bag @ 100 mls/hr IVPB ONCE [facility] Rx#:[id number] Piperacillin-Tazobactam 3 100 100 .375 gm In Sodium Chloride 0.9% 100 ml @ 25 mls/hr IVPB Q8H [facility] Rx#: [id number] Pressure Bag 3 15 Sodium Chloride 0.9% 1, 780 650 000 ml @ 130 mls/hr IV . Q7H42M [facility] Rx#:[id number] Sodium Chloride 0.9% 1, 1000 000 ml @ 999 mls/hr IV . Q1H1M [facility] Rx#:[id number] Sodium Chloride 0.9% 750 750 ml @ 999 mls/hr IV .Q46M [facility] Rx#:[id number] Intake, IV Titration 161.531 398.502 Amount Norepinephrine 4 mg In 111.181 285.151 Sodium Chloride 0.9% 250 ml @ 0.03 MCG/KG/MIN 10. 369 mls/hr IV .Q24H [facility] Rx#:[id number] propofoL 1,000 mg In 50.350 113.351 Empty Bag 1 bag @ 15 MCG/ KG/MIN 8.165 mls/hr IV . V50F25H [facility] Rx#:[id number] Output: Gastric Drainage 1250 Urine 400 440 210 Other: Voiding Method Indwelling Catheter Weight 90.718 kg 90.718 kg ABP, PAP, CO, CI - Last 8 Hours Arterial Blood Pressure 76/46 Arterial Blood Pressure 81/46 Arterial Blood Pressure 78/44 Arterial Blood Pressure 88/47 Arterial Blood Pressure 80/43 Arterial Blood Pressure 107/52 Arterial Blood Pressure 86/46 Arterial Blood Pressure 95/51 Arterial Blood Pressure 85/50 Arterial Blood Pressure 87/49 Arterial Blood Pressure 89/50 Arterial Blood Pressure 80/46 Arterial Blood Pressure 84/48 Arterial Blood Pressure 89/50 Arterial Blood Pressure 87/50 Arterial Blood Pressure 89/49 Arterial Blood Pressure 98/54 Arterial Blood Pressure 111/61 Arterial Blood Pressure 84/49 Arterial Blood Pressure 85/49 Arterial Blood Pressure 94/54 Arterial Blood Pressure 87/51 Arterial Blood Pressure 91/53 Arterial Blood Pressure 91/51 Arterial Blood Pressure 102/46 Arterial Blood Pressure 107/64 Arterial Blood Pressure 86/52 patient is currently intubated. Examination of the heart S1 and S2 Examination of the lungs bilateral breath sounds are heard Abdomen is soft nontender Examination of lower extremities shows no significant edema Results - Lab Results Most recent lab results ABG pH 7.40 (7.35-7.45) 09/01/24 04:51 ABG pCO2 37 mmHg (35-45) 09/01/24 04:51 ABG pO2 72 mmHg (83-108) L 09/01/24 04:51 ABG HCO3 23 mmol/L (21-25) 09/01/24 04:51 ABG O2 Saturation 94.1 % (94-97) 09/01/24 04:51 Calcium 6.2 mg/dL (8.4-10.2) L* 09/01/24 03:05 09/01/24 03:05 09/01/24 03:05 Assessment and Plan Assessment: 1. Acute kidney injury ATN currently nonoliguric secondary to sepsis and hypotension 2. Right hydronephrosis noted. Urology on consult. Patient has been evaluated by urology as outpatient as well and it is not clear if he has a solitary functioning kidney. 3. Acute hypoxic respiratory failure currently on the vent 4. Aspiration pneumonia 5. History of Parkinson's disease Plan: continue IV fluids Urology consult pending Continue with antibiotics Repeat labs in a.m.
--- NOTE | 2024-09-01 15:12 | P.GSCN ---
History of Present Illness Consult date: 09/01/24 Reason for Consult: Hydronephrosis Requesting physician: Xiomara Manjarrez History of present illness: The patient is a 63-year-old white male with a history of Parkinson's disease. He has a deep brain stimulator and presents to the ER with nausea, vomiting, and difficulty breathing. He was recently hospitalized at [facility] in [place] with abdominal pain. He was seen by urology at that time and was noted to have a nonfunctional kidney. His evaluation at the time of admission to [facility] includes a CT scan, revealing marked right hydronephrosis. There is also mention of mild left hydronephrosis, though I see no evidence of hydronephrosis on my review of the CT scan. Review of Systems ROS unobtainable: due to endotracheal tube Past Medical History Past Medical History: Hypertension Additional Past Medical History / Comment(s): parkinsons History of Any Multi-Drug Resistant Organisms: None Reported Past Surgical History: No Surgical Hx Reported Additional Past Surgical History / Comment(s): deep brain stimulator Past Psychological History: No Psychological Hx Reported Smoking Status: Former smoker Past Alcohol Use History: Occasional Past Drug Use History: Marijuana Medications and Allergies Home Medications Medication Instructions Recorded Confirmed Type Atorvastatin [Lipitor] 20 mg PO HS@1800 08/31/24 08/31/24 History Carbidopa-Levodopa 25-100 mg 1 tab PO TID@0600,1400,1800 08/31/24 08/31/24 History [Sinemet 25-100] atenoloL [Tenormin] 25 mg PO DAILY@0600 08/31/24 08/31/24 History Allergies Allergy/AdvReac Type Severity Reaction Status Date / Time No Known Allergies Allergy Verified 08/31/24 20:47 Surgical - Exam Vital Signs Temp Pulse Resp BP Pulse Ox 97.9 F 105 H 30 H 119/55 95 08/31/24 18:41 08/31/24 18:41 08/31/24 18:41 08/31/24 18:41 08/31/24 18:41 Results - Labs 09/01/24 03:05 09/01/24 03:05 Abnormal Lab Results - Last 24 Hours (Table) 08/31/24 08/31/24 08/31/24 Range/Units 19:09 19:09 19:09 WBC 11.7 H (3.8-10.6) k/uL Neutrophils # 9.9 H (1.3-7.7) k/uL Lymphocytes # 0.8 L (1.0-4.8) k/uL PT 17.3 H (10.0-12.5) sec INR 1.7 H (<1.2) ABG pO2 (83-108) mmHg Chloride (98-107) mmol/L BUN 100 H (9-20) mg/dL Creatinine 2.84 H (0.66-1.25) mg/dL Plasma Lactic Acid Maciel (0.7-2.0) mmol/L Calcium 7.5 L (8.4-10.2) mg/dL Total Bilirubin 2.0 H (0.2-1.3) mg/dL AST 91 H (17-59) U/L Alkaline Phosphatase 34 L (38-126) U/L Total Protein 5.1 L (6.3-8.2) g/dL Albumin 2.6 L (3.5-5.0) g/dL Urine Protein (Negative) Urine Blood (Negative) Urine Bilirubin (Negative) Urine WBC (0-5) /hpf Amorphous Sediment (None) /hpf Urine Bacteria (None) /hpf Hyaline Casts (0-2) /lpf Urine Mucus (None) /hpf 08/31/24 08/31/24 09/01/24 Range/Units 19:09 21:04 01:15 WBC (3.8-10.6) k/uL Neutrophils # (1.3-7.7) k/uL Lymphocytes # (1.0-4.8) k/uL PT (10.0-12.5) sec INR (<1.2) ABG pO2 (83-108) mmHg Chloride (98-107) mmol/L BUN (9-20) mg/dL Creatinine (0.66-1.25) mg/dL Plasma Lactic Acid Maciel 2.7 H* (0.7-2.0) mmol/L Calcium (8.4-10.2) mg/dL Total Bilirubin (0.2-1.3) mg/dL AST (17-59) U/L Alkaline Phosphatase (38-126) U/L Total Protein (6.3-8.2) g/dL Albumin (3.5-5.0) g/dL Urine Protein Trace H 1+ H (Negative) Urine Blood Moderate H (Negative) Urine Bilirubin 1+ H 1+ H (Negative) Urine WBC 13 H (0-5) /hpf Amorphous Sediment Occasional H (None) /hpf Urine Bacteria Rare H (None) /hpf Hyaline Casts 317 H (0-2) /lpf Urine Mucus Occasional H (None) /hpf 09/01/24 09/01/24 09/01/24 Range/Units 03:05 03:05 04:51 WBC 11.2 H (3.8-10.6) k/uL Neutrophils # 10.0 H (1.3-7.7) k/uL Lymphocytes # 0.4 L (1.0-4.8) k/uL PT (10.0-12.5) sec INR (<1.2) ABG pO2 72 L (83-108) mmHg Chloride 110 H (98-107) mmol/L BUN 101 H* (9-20) mg/dL Creatinine 2.77 H (0.66-1.25) mg/dL Plasma Lactic Acid Maciel (0.7-2.0) mmol/L Calcium 6.2 L* (8.4-10.2) mg/dL Total Bilirubin (0.2-1.3) mg/dL AST (17-59) U/L Alkaline Phosphatase (38-126) U/L Total Protein (6.3-8.2) g/dL Albumin (3.5-5.0) g/dL Urine Protein (Negative) Urine Blood (Negative) Urine Bilirubin (Negative) Urine WBC (0-5) /hpf Amorphous Sediment (None) /hpf Urine Bacteria (None) /hpf Hyaline Casts (0-2) /lpf Urine Mucus (None) /hpf Diabetes panel 08/31/24 09/01/24 Range/Units 19:09 03:05 Sodium 140 144 (137-145) mmol/L Potassium 4.7 3.8 (3.5-5.1) mmol/L Chloride 103 110 H (98-107) mmol/L Carbon Dioxide 25 24 (22-30) mmol/L BUN 100 H 101 H* (9-20) mg/dL Creatinine 2.84 H 2.77 H (0.66-1.25) mg/dL Glucose 95 86 (74-99) mg/dL Calcium 7.5 L 6.2 L* (8.4-10.2) mg/dL AST 91 H (17-59) U/L ALT 14 (4-49) U/L Alkaline Phosphatase 34 L (38-126) U/L Total Protein 5.1 L (6.3-8.2) g/dL Albumin 2.6 L (3.5-5.0) g/dL Calcium panel 08/31/24 09/01/24 Range/Units 19:09 03:05 Calcium 7.5 L 6.2 L* (8.4-10.2) mg/dL Albumin 2.6 L (3.5-5.0) g/dL Pituitary panel 08/31/24 09/01/24 Range/Units 19:09 03:05 Sodium 140 144 (137-145) mmol/L Potassium 4.7 3.8 (3.5-5.1) mmol/L Chloride 103 110 H (98-107) mmol/L Carbon Dioxide 25 24 (22-30) mmol/L BUN 100 H 101 H* (9-20) mg/dL Creatinine 2.84 H 2.77 H (0.66-1.25) mg/dL Glucose 95 86 (74-99) mg/dL Calcium 7.5 L 6.2 L* (8.4-10.2) mg/dL Adrenal panel 08/31/24 09/01/24 Range/Units 19:09 03:05 Sodium 140 144 (137-145) mmol/L Potassium 4.7 3.8 (3.5-5.1) mmol/L Chloride 103 110 H (98-107) mmol/L Carbon Dioxide 25 24 (22-30) mmol/L BUN 100 H 101 H* (9-20) mg/dL Creatinine 2.84 H 2.77 H (0.66-1.25) mg/dL Glucose 95 86 (74-99) mg/dL Calcium 7.5 L 6.2 L* (8.4-10.2) mg/dL Total Bilirubin 2.0 H (0.2-1.3) mg/dL AST 91 H (17-59) U/L ALT 14 (4-49) U/L Alkaline Phosphatase 34 L (38-126) U/L Total Protein 5.1 L (6.3-8.2) g/dL Albumin 2.6 L (3.5-5.0) g/dL - Imaging CT scan - abdomen: report reviewed, image reviewed Assessment and Plan (1) Unspecified hydronephrosis Current Visit: Yes Status: Acute Code(s): N13.30 - UNSPECIFIED HYDRONEPHR OSIS SNOMED Code(s): 22835846 Plan: Review of the patient's CT scan suggests marked right hydronephrosis due to UPJ obstruction. The right renal parenchyma is thin and the kidney functions minimally at best. As stated, my review of the CT scan shows the left kidney to be unremarkable, and I do not feel that any further evaluation or treatment is warranted at this time. I intend to review these findings with the patient as his condition (hopefully) improves. Time with Patient: Greater than 30
[2024-09-01] MEDS: NOREPINEPHRINE 8 MG in SODIUM CHLORIDE 0.9% 250 ML IV SCH (17:00)
[2024-09-01] MEDS: ATORVASTATIN 20 MG TAB PO SCH (17:32)
--- NOTE | 2024-09-01 19:11 | PCN ---
PROCEDURE NOTE PULMONARY/CRITICAL CARE PROCEDURE NOTE: PROCEDURE: Left femoral vein triple-lumen catheter. PREOPERATIVE DIAGNOSIS: Administration of fluids and pressors. POSTOPERATIVE DIAGNOSIS: Administration of fluids and pressors. OPERATORS: Dr. Neal, Dr. Pabon, Dr. Drummond. TRIPLE LUMEN CATHETER PLACEMENT: Indication: Hemodynamic monitoring/Intravenous access. A time-out was completed verifying correct patient, procedure, site, positioning, and implant(s) or special equipment if applicable. The patient was placed in a dependent position appropriate for triple lumen catheter placement based on the vein to be cannulated. The patient's left shoulder or left neck or left groin was prepped and draped in sterile fashion. 1% Lidocaine was used to anesthetize the surrounding skin area. A triple lumen 9F Cordis catheter was introduced into the left common femoral vein using Seldinger technique. The catheter was threaded smoothly over the guide wire and appropriate blood return was obtained. Each lumen of the catheter was evacuated of air and flushed with sterile saline. The catheter was then sutured in place to the skin and a sterile dressing applied. Perfusion to the extremity distal to the point of catheter insertion was checked and found to be adequate. There was no immediate complication. There was good blood return from all 3 ports. The catheter was sutured in place. Sterile dressing was applied by the nurse. A chest x-ray is not necessary. The patient tolerated the procedure well. MMODL / IJN: [id number] /
[2024-09-01] MEDS: ACETAMINOPHEN TAB 325 MG TAB PO PRN (20:21)
[2024-09-02] MEDS: atenoloL 25 MG TAB PO STA (01:40)
[2024-09-02 02:55] LABS: HCT 38.1 % (39.0-53.0); HGB 12.3 gm/dL (13.0-17.5); MCH 28.9 pg (25.0-35.0); MCHC 32.2 g/dL (31.0-37.0); MCV 89.7 fL (80.0-100.0); Mean Platelet Volume 7.5; Platelet Count 307 k/uL (150-450); RBC 4.25 m/uL (4.30-5.90); RDW 14.1 % (11.5-15.5)
[2024-09-02 03:38] LABS: African American GFR (CKD) 33 (>60 ml/min/1.73 sqM); Anion Gap 16 mmol/L; Blood Urea Nitrogen 95 mg/dL (9-20); Calcium 7.1 mg/dL (8.4-10.2); Carbon Dioxide 16 mmol/L (22-30); Chloride 114 mmol/L (98-107); Glucose 135 mg/dL (74-99); Magnesium 2.1 mg/dL (1.6-2.3); Non-African American GFR(CKD) 28 (>60 ml/min/1.73 sqM); Potassium 3.8 mmol/L (3.5-5.1); Sodium 146 mmol/L (137-145)
[2024-09-02 05:44] LABS: ABG Base Excess -5.7 mmol/L; ABG HCO3 19 mmol/L (21-25); ABG Oxygen Saturation 99.9 % (94-97); ABG PCO2 33 mmHg (35-45); ABG PH 7.37 (7.35-7.45); ABG PO2 259 mmHg (83-108); ABG TCO2 20 mmol/L (19-24)
--- NOTE | 2024-09-02 09:22 | XR ---
EXAMINATION TYPE: XR chest 1V portable DATE OF EXAM: 09/02/2024 5:41 AM COMPARISON: 09/01/2024 CLINICAL INDICATION: Male, 63 years old with history of Tube placement, difficulty breathing TECHNIQUE: XR chest 1V portable view(s) obtained. FINDINGS: The heart size is normal. The pulmonary vasculature is normal. Mild infiltrate is present slightly greater in the left lung base. Findings are worsening from compar mihai Endotracheal tube tip is 5.6 cm above the renan. Nasogastric tube tip is in the left upper quadrant of the abdomen IMPRESSION: 1. Mild worsening patchy bilateral lung infiltrates. 2. Lines and catheters discussed above [facility], Workstation: [facility], 09/02/2024 9:20 AM
[2024-09-02] MEDS: HYDROCORTISONE SUCCINATE 100 MG/2 ML VIAL IV STA (10:44)
--- NOTE | 2024-09-02 11:34 | P.PN ---
Subjective This is a pleasant 63 years old male who presents initially last night for flulike symptoms and found to be hypoxic. Also there was concerns of GI bleed On admission he was in respiratory distress and he has to be intubated and placed on mechanical ventilation Currently he is in the ICU and he cannot provide information which was obtained from the staff and medical records. Patient currently is afebrile, blood pressure is stable after he started on pressors, patient was hypotensive in the emergency room. Blood pressure now 105/63 Labs reviewed showing WBC 11.2, creatinine 2.7, calcium was low 6.2 Troponin x 2 are negative at 0.03 and 0.02 Urine analysis is currently concentrated sample Chest x-ray showing bibasilar infiltrates which is also seen on the CT of the abdomen and pelvis. Patient has marked right hydronephrosis with apparent obstruction at the right renal pelvis, no obvious cause. Hemoglobin is normal at 13.2 09/02 Patient remains in the ICU intubated and sedated. He is requiring FiO2 of 50% He is developing fever of 101.1, blood pressure 105/63 but requiring pressors of Levophed WBC increased significantly to 26,000, creatinine improving to 2.7 down to 2.3. Patient currently remains on Zosyn and pressors. Neurology team evaluated the patient for right hydronephrosis and no surgical intervention warranted Acute kidney injury is improving. Objective - Vital Signs Vital signs: Vital Signs Temp 99.7 F H 09/02/24 08:00 Pulse 102 H 09/02/24 08:50 Resp 35 H 09/02/24 08:00 BP 147/83 09/02/24 07:45 Pulse Ox 99 09/02/24 08:00 FiO2 50 09/02/24 08:47 Intake & Output 09/01/24 09/02/24 09/02/24 18:59 06:59 18:59 Intake Total 2493.494 2691.324 613.935 Output Total 515 605 245 Balance 5774.643 1414.324 368.935 Weight 90.718 kg 92.6 kg Intake: IV 1663 1596 375 Piperacillin-Tazobactam 3 200 100 .375 gm In Sodium Chloride 0.9% 100 ml @ 25 mls/hr IVPB Q8H [facility] Rx#: [id number] Pressure Bag 33 36 15 Sodium Chloride 0.9% 1, 1430 1560 260 000 ml @ 130 mls/hr IV . Q7H42M [facility] Rx#:[id number] Intake, IV Titration 740.494 975.324 158.935 Amount Norepinephrine 4 mg In 451.877 Sodium Chloride 0.9% 250 ml @ 0.03 MCG/KG/MIN 10. 369 mls/hr IV .Q24H [facility] Rx#:[id number] Norepinephrine 8 mg In 40.5 678.000 56.348 Sodium Chloride 0.9% 250 ml @ 0.03 MCG/KG/MIN 5. 266 mls/hr IV .Q24H [facility] Rx#:[id number] Vasopressin 60 unit In 27.6 18.4 102.587 Sodium Chloride 0.9% 150 ml @ 0.03 UNITS/MIN 4.59 mls/hr IV .Q24H [facility] Rx#: [id number] propofoL 1,000 mg In 220.517 278.924 Empty Bag 1 bag @ 15 MCG/ KG/MIN 8.165 mls/hr IV . [id number] [facility] Rx#:[id number] Tube Feeding 30 120 50 Other 60 30 Output: Urine 515 605 245 Other: Voiding Method Indwelling Catheter Indwelling Catheter Indwelling Catheter ABP, PAP, CO, CI - Last Documented Arterial Blood Pressure 112/48 - Exam GENERAL: T intubated and sedated HEENT: Pupils are round and equally reacting to light. EOMI. No scleral icterus. No conjunctival pallor. Normocephalic, atraumatic. No pharyngeal erythema. No thyromegaly. CARDIOVASCULAR: S1 and S2 present. No murmurs, rubs, or gallops. PULMONARY: Chest is clear to auscultation, no wheezing , no crackles. ABDOMEN: Soft, nontender, nondistended, normoactive bowel sounds. No palpable organomegaly. MUSCULOSKELETAL: No joint swelling or deformity. EXTREMITIES: No cyanosis, clubbing, or pedal edema. NEUROLOGICAL: Gross neurological examination did not reveal any focal deficits. SKIN: No rashes. no petechiae. - Labs CBC & Chem 7: 09/02/24 02:30 09/02/24 02:30 Labs: Abnormal Lab Results - Last 24 Hours (Table) 09/01/24 09/01/24 09/01/24 Range/Units 01:27 03:05 03:05 WBC (3.8-10.6) k/uL RBC (4.30-5.90) m/uL Hgb (13.0-17.5) gm/dL Hct (39.0-53.0) % ABG pH 7.26 L (7.35-7.45) ABG pCO2 49 H (35-45) mmHg ABG pO2 64 L (83-108) mmHg ABG HCO3 (21-25) mmol/L ABG O2 Saturation 86.9 L (94-97) % Hemoglobin (13.0-17.5) gm/dL Sodium (137-145) mmol/L Chloride (98-107) mmol/L Carbon Dioxide (22-30) mmol/L BUN (9-20) mg/dL Creatinine (0.66-1.25) mg/dL Glucose (74-99) mg/dL Calcium (8.4-10.2) mg/dL Procalcitonin 13.10 H (0.02-0.50) ng/mL Cortisol 39.4 H (3.1-22.4) UG/DL 09/02/24 09/02/24 09/02/24 Range/Units 02:30 02:30 04:56 WBC 26.0 H (3.8-10.6) k/uL RBC 4.25 L (4.30-5.90) m/uL Hgb 12.3 L (13.0-17.5) gm/dL Hct 38.1 L (39.0-53.0) % ABG pH (7.35-7.45) ABG pCO2 33 L (35-45) mmHg ABG pO2 259 H (83-108) mmHg ABG HCO3 19 L (21-25) mmol/L ABG O2 Saturation 99.9 H (94-97) % Hemoglobin 12.4 L (13.0-17.5) gm/dL Sodium 146 H (137-145) mmol/L Chloride 114 H (98-107) mmol/L Carbon Dioxide 16 L (22-30) mmol/L BUN 95 H (9-20) mg/dL Creatinine 2.34 H (0.66-1.25) mg/dL Glucose 135 H (74-99) mg/dL Calcium 7.1 L (8.4-10.2) mg/dL Procalcitonin (0.02-0.50) ng/mL Cortisol (3.1-22.4) UG/DL Microbiology - Last 24 Hours (Table) 09/01/24 01:15 Urine Culture - Final Urine,Voided 09/01/24 01:36 Gram Stain - Preliminary Sputum Assessment and Plan Assessment: Acute hypoxic respiratory failure requiring intubation and mechanical ventilation Bibasilar pneumonia suspicious for aspiration pneumonia septic shock secondary to above Acute kidney injury Marked right hydronephrosis History of Parkinson disease Plan: Continue in the ICU with pulmonary/critical care team consult Continue with mechanical ventilation as per ICU team. Patient started on Zosyn. Follow-up culture results Continue with pressors Urology team consulted for his right hydronephrosis. Nephrology team consult General Surgery consulted for concerns for possible GI bleed. However his hemoglobin is stable currently GI prophylaxis: Protonix, continue with IV Protonix DVT prophylaxis: Mechanical prophylaxis Prognosis is guarded
[2024-09-02] MEDS: DEXTROSE 5% IN WATER 1,000 ML with SODIUM BICARB (1 MEQ/ML) 150 ML IV SCH (12:14)
[2024-09-02] MEDS: METOCLOPRAMIDE 5 MG/ML 2 ML VIAL IVP SCH (12:19)
[2024-09-02] MEDS: HYDROCORTISONE SUCCINATE 100 MG/2 ML VIAL IV SCH (12:19)
--- NOTE | 2024-09-02 12:19 | P.PN ---
Subjective Patient is seen for follow-up for acute kidney injury. He remains on IV fluids and pressors although dose of Levophed and vasopressin has been decreased today. Urine output at 50 to 60 cc/h. Serum creatinine decreased to 2.3 today. Sodium was 146. It appears that patient has a chronic hydronephrotic right kidney with minimal function and functioning left kidney. Objective - Vital Signs Vital signs: Vital Signs Temp 99.7 F H 09/02/24 08:00 Pulse 98 09/02/24 12:00 Resp 34 H 09/02/24 12:00 BP 147/83 09/02/24 12:00 Pulse Ox 98 09/02/24 12:00 FiO2 50 09/02/24 11:54 Intake & Output 09/01/24 09/02/24 09/02/24 18:59 06:59 18:59 Intake Total 2493.494 2691.324 613.935 Output Total 515 605 245 Balance 7003.195 8297.324 368.935 Weight 90.718 kg 92.6 kg Intake: IV 1663 1596 375 Piperacillin-Tazobactam 3 200 100 .375 gm In Sodium Chloride 0.9% 100 ml @ 25 mls/hr IVPB Q8H [facility] Rx#: [id number] Pressure Bag 33 36 15 Sodium Chloride 0.9% 1, 1430 1560 260 000 ml @ 130 mls/hr IV . Q7H42M [facility] Rx#:[id number] Intake, IV Titration 740.494 975.324 158.935 Amount Norepinephrine 4 mg In 451.877 Sodium Chloride 0.9% 250 ml @ 0.03 MCG/KG/MIN 10. 369 mls/hr IV .Q24H [facility] Rx#:[id number] Norepinephrine 8 mg In 40.5 678.000 56.348 Sodium Chloride 0.9% 250 ml @ 0.03 MCG/KG/MIN 5. 266 mls/hr IV .Q24H [facility] Rx#:[id number] Vasopressin 60 unit In 27.6 18.4 102.587 Sodium Chloride 0.9% 150 ml @ 0.03 UNITS/MIN 4.59 mls/hr IV .Q24H [facility] Rx#: [id number] propofoL 1,000 mg In 220.517 278.924 Empty Bag 1 bag @ 15 MCG/ KG/MIN 8.165 mls/hr IV . [id number] [facility] Rx#:[id number] Tube Feeding 30 120 50 Other 60 30 Output: Urine 515 605 245 Other: Voiding Method Indwelling Catheter Indwelling Catheter Indwelling Catheter ABP, PAP, CO, CI - Last Documented Arterial Blood Pressure 113/47 - Exam Patient remains on the vent. Examination of the heart S1 and S2 Examination of the lungs bilateral breath sounds are heard Abdomen is soft nontender Examination of lower extremities shows no significant edema - Labs CBC & Chem 7: 09/02/24 02:30 09/02/24 02:30 Labs: Abnormal Lab Results - Last 24 Hours (Table) 09/01/24 09/01/24 09/02/24 Range/Units 03:05 03:05 02:30 WBC 26.0 H (3.8-10.6) k/uL RBC 4.25 L (4.30-5.90) m/uL Hgb 12.3 L (13.0-17.5) gm/dL Hct 38.1 L (39.0-53.0) % ABG pCO2 (35-45) mmHg ABG pO2 (83-108) mmHg ABG HCO3 (21-25) mmol/L ABG O2 Saturation (94-97) % Hemoglobin (13.0-17.5) gm/dL Sodium (137-145) mmol/L Chloride (98-107) mmol/L Carbon Dioxide (22-30) mmol/L BUN (9-20) mg/dL Creatinine (0.66-1.25) mg/dL Glucose (74-99) mg/dL Calcium (8.4-10.2) mg/dL Procalcitonin 13.10 H (0.02-0.50) ng/mL Cortisol 39.4 H (3.1-22.4) UG/DL 09/02/24 09/02/24 Range/Units 02:30 04:56 WBC (3.8-10.6) k/uL RBC (4.30-5.90) m/uL Hgb (13.0-17.5) gm/dL Hct (39.0-53.0) % ABG pCO2 33 L (35-45) mmHg ABG pO2 259 H (83-108) mmHg ABG HCO3 19 L (21-25) mmol/L ABG O2 Saturation 99.9 H (94-97) % Hemoglobin 12.4 L (13.0-17.5) gm/dL Sodium 146 H (137-145) mmol/L Chloride 114 H (98-107) mmol/L Carbon Dioxide 16 L (22-30) mmol/L BUN 95 H (9-20) mg/dL Creatinine 2.34 H (0.66-1.25) mg/dL Glucose 135 H (74-99) mg/dL Calcium 7.1 L (8.4-10.2) mg/dL Procalcitonin (0.02-0.50) ng/mL Cortisol (3.1-22.4) UG/DL Microbiology - Last 24 Hours (Table) 09/01/24 01:15 Urine Culture - Final Urine,Voided 09/01/24 01:36 Gram Stain - Preliminary Sputum Assessment and Plan Assessment: 1. Acute kidney injury ATN currently nonoliguric secondary to sepsis and hypotension, improving. Solitary functioning kidney which is the left kidney. Patient has chronic hydronephrosis of right kidney with minimal function as per urology note 2. Right hydronephrosis noted. This appears to be chronic. Urology on consult. 3. Acute hypoxic respiratory failure currently on on the ventilator. 4. Aspiration pneumonia 5. History of Parkinson's disease 6. Metabolic acidosis secondary to acute kidney injury Plan: continue IV fluids, change IV fluids to IV bicarb Continue with antibiotics Repeat labs in a.m.
--- NOTE | 2024-09-02 12:38 | P.PN ---
Subjective Patient is a 63-year-old male with past medical history significant for Parkinson disease, with nerve brain stimulator hypertension, hyperlipidemia. According to the ER note, patient has had a couple days of nausea, vomiting, and shortness of breath. Found to be increasingly lethargic while at home and EMS was called. Noted to have brown emesis and around by EMS. Of note, reportedly had a recent hospitalization at [facility] for issues with his kidney function. On arrival to the ED, noted to be in some respiratory distress, placed on BiPAP with initial settings 10/5 and FiO2 100%. He did have a CT of the abdomen and pelvis which demonstrated bibasilar airspace consolidations with air bronchograms and small bilateral effusions. Also, right inguinal hernia containing loop of small bowel and possible partial small bowel obstruction. Normal caliber colon with mild fecal retention. Marked right-sided hydronephrosis at the ureteropelvic junction. A nasogastric tube was inserted in the emergency department for gastric decompression, and a total of 1 L of brown fecal like content was immediately evacuated. On my initial evaluation in the emergency department, patient was in trauma bay 2. He was comatose state and obviously unable to protect his airway. He was on BiPAP with above-mentioned settings. Breathing in the high 30s. SpO2 was reading 80%. Patient obviously needed to be intubated. [employer] was called and rapid sequence intubation was carried out. Initial ventilator settings included AC, respiratory rate 20, tidal volume of 500, FiO2 100%, PEEP of 5. During intubation, patient had a large volume of presumably gastric contents pulling in his posterior oropharynx. Postintubation chest x-ray shows the endotracheal tube in appropriate position above the renan, there is orogastric tube coursing bel ow the diaphragm. There continues to have bibasilar consolidations and probable small pleural effusions. Following intubation, patient became profoundly hypotensive, he is currently receiving a normal saline bolus. He was placed on Levaquin in the emergency department. There is no obvious concern for aspiration pneumonia. CBC: WBC count 11.7, hemoglobin 15.1, hematocrit 45, platelets 299. CMP: Sodium 140, potassium 4.7, chloride 103, serum bicarb 25, BUN 100, creatinine 2.84, glucose 95. Lactic 1.4. LFTs mildly elevated. Pancreatic lipase is 81. Troponin 0.032. Is negative for influenza, RSV, COVID. Unfortunately, we are unable to get a hold of family at this time. Patient is listed as a full code. Progress note dated September 02, 2024: Patient seen in the intensive care unit this morning, no significant overnight events. Patient remains intubated, vent settings AC, rate 24, tidal volume 500, FiO2 50%, and PEEP 10. ABG: CO2 33, O2 259, pH 7.37. CMP: Sodium 146, potassium 3.8, chloride 114, CO2 16, BUN 95, creatinine 2.34, procalcitonin from yesterday 13.1, and cortisol 39.4. Chest x-ray shows endotracheal tube about 5.6 cm above the tracheal renan. Mild worsening patchy bilateral lung infiltrates. ROS: Cannot obtain at this time Physical exam: GENERAL EXAM: 63-year-old male, now intubated to mechanical ventilator, synchronous with set rate HEAD: Normocephalic and atraumatic EYES: Normal reaction of pupils, equal size. NOSE: Clear with pink turbinates. THROAT: No erythema or exudates. NECK: No masses, no JVD. CHEST: No chest wall deformity. Left chest implanted device LUNGS: Equal air entry with diffuse rhonchi and crackles. Intubated mechanical ventilator, peak pressures in the order of 30 to and static airway pressure 27. Minimal endotracheal secretions at this time. Small amounts of presumably gastric content was aspirated from the oropharynx. CVS: S1 and S2 normal with no audible murmur, regular rhythm. No extra heart sounds ABDOMEN: No hepatosplenomegaly, active bowel sounds, no guarding or rigidity. SPINE: No scoliosis or deformity SKIN: No rashes CENTRAL NERVOUS SYSTEM: Comatose and now minimally sedated on propofol, extremities flaccid no obvious focal deficits. EXTREMITIES: There is no peripheral edema, clubbing, or cyanosis. Peripheral pulses are intact. Assessment: Acute hypoxemic and hypercapnic respiratory failure secondary to aspiration and bibasilar aspiration pneumonia, patient was intubated by [employer]IST[employer], large-volume presumedly gastric contents pooling in the posterior oropharynx noted during intubation. CT of the abdomen and pelvis, demonstrating bibasilar airspace consolidations and air bronchograms and small bilateral effusions. Possible partial small bowel obstruction, CT of the abdomen and pelvis demonstrating right inguinal hernia containing loops of small bowel and possible partial small bowel obstruction. Normal caliber colon with mild fecal retention. Marked right-sided hydronephrosis at the ureteropelvic junction. No obvious stones reported on CT Acute kidney injury, possibly secondary to above Right-sided hydronephrosis Postintubation hypotension, patient is currently being fluid resuscitated, may require vasopressors to maintain MAP of 65 mmHg or greater History of hypertension History of hyperlipidemia History of Parkinson disease with nerve stimulator Plan: Patient remains mechanically ventilated, endotracheal tube was approximately 5.6 cm above the tracheal renan, RT pushed endotracheal tube further down to be within a range of 3 to 4 cm above the tracheal renan Patient's tube feeds have been low running at a rate of 10 with a goal of 75. Patient started on Reglan 10 mg IVP every 6 HR Cortisol from yesterday was 39.4, patient was given one-time hydrocortisone succinate 100 mg IV as well as started on hydrocortisone succinate 50 mg IV every 6 HR. After initial hydrocortisone patient's blood pressure did not react. Remains on vasopressin 60 units IV 0.03 units/min, and Levophed 8 mg IV 0.03 mcg/kg/min. Continue with empiric antibiotics for aspiration pneumonia (day 2). Urology on consult for right-sided hydronephrosis and ELIJAH as well as nephrology consulted for ELIJAH. Prognosis guarded Objective - Vital Signs Vital signs: Vital Signs Temp 99.7 F H 09/02/24 08:00 Pulse 103 H 09/02/24 08:40 Resp 35 H 09/02/24 08:00 BP 147/83 09/02/24 07:45 Pulse Ox 99 09/02/24 08:00 FiO2 50 09/02/24 08:41 Intake & Output 09/01/24 09/02/24 09/02/24 18:59 06:59 18:59 Intake Total 2493.494 2691.324 323.916 Output Total 515 605 105 Balance 6635.410 2340.324 218.916 Weight 90.718 kg 92.6 kg Intake: IV 1663 1596 266 Piperacillin-Tazobactam 3 200 .375 gm In Sodium Chloride 0.9% 100 ml @ 25 mls/hr IVPB Q8H [facility] Rx#: [id number] Pressure Bag 33 36 6 Sodium Chloride 0.9% 1, 1430 1560 260 000 ml @ 130 mls/hr IV . Q7H42M [facility] Rx#:[id number] Intake, IV Titration 740.494 975.324 37.916 Amount Norepinephrine 4 mg In 451.877 Sodium Chloride 0.9% 250 ml @ 0.03 MCG/KG/MIN 10. 369 mls/hr IV .Q24H [facility] Rx#:[id number] Norepinephrine 8 mg In 40.5 678.000 37.916 Sodium Chloride 0.9% 250 ml @ 0.03 MCG/KG/MIN 5. 266 mls/hr IV .Q24H [facility] Rx#:[id number] Vasopressin 60 unit In 27.6 18.4 Sodium Chloride 0.9% 150 ml @ 0.03 UNITS/MIN 4.59 mls/hr IV .Q24H [facility] Rx#: [id number] propofoL 1,000 mg In 220.517 278.924 Empty Bag 1 bag @ 15 MCG/ KG/MIN 8.165 mls/hr IV . [id number] [facility] Rx#:[id number] Tube Feeding 30 120 20 Other 60 Output: Urine 515 605 105 Other: Voiding Method Indwelling Catheter Indwelling Catheter ABP, PAP, CO, CI - Last Documented Arterial Blood Pressure 112/48 - Labs CBC & Chem 7: 09/02/24 02:30 09/02/24 02:30 Labs: Abnormal Lab Results - Last 24 Hours (Table) 09/01/24 09/01/24 09/01/24 Range/Units 01:27 03:05 03:05 WBC (3.8-10.6) k/uL RBC (4.30-5.90) m/uL Hgb (13.0-17.5) gm/dL Hct (39.0-53.0) % ABG pH 7.26 L (7.35-7.45) ABG pCO2 49 H (35-45) mmHg ABG pO2 64 L (83-108) mmHg ABG HCO3 (21-25) mmol/L ABG O2 Saturation 86.9 L (94-97) % Hemoglobin (13.0-17.5) gm/dL Sodium (137-145) mmol/L Chloride (98-107) mmol/L Carbon Dioxide (22-30) mmol/L BUN (9-20) mg/dL Creatinine (0.66-1.25) mg/dL Glucose (74-99) mg/dL Calcium (8.4-10.2) mg/dL Procalcitonin 13.10 H (0.02-0.50) ng/mL Cortisol 39.4 H (3.1-22.4) UG/DL 09/02/24 09/02/24 09/02/24 Range/Units 02:30 02:30 04:56 WBC 26.0 H (3.8-10.6) k/uL RBC 4.25 L (4.30-5.90) m/uL Hgb 12.3 L (13.0-17.5) gm/dL Hct 38.1 L (39.0-53.0) % ABG pH (7.35-7.45) ABG pCO2 33 L (35-45) mmHg ABG pO2 259 H (83-108) mmHg ABG HCO3 19 L (21-25) mmol/L ABG O2 Saturation 99.9 H (94-97) % Hemoglobin 12.4 L (13.0-17.5) gm/dL Sodium 146 H (137-145) mmol/L Chloride 114 H (98-107) mmol/L Carbon Dioxide 16 L (22-30) mmol/L BUN 95 H (9-20) mg/dL Creatinine 2.34 H (0.66-1.25) mg/dL Glucose 135 H (74-99) mg/dL Calcium 7.1 L (8.4-10.2) mg/dL Procalcitonin (0.02-0.50) ng/mL Cortisol (3.1-22.4) UG/DL Microbiology - Last 24 Hours (Table) 09/01/24 01:36 Gram Stain - Preliminary Sputum
[2024-09-02] MEDS ORDERED: DEXTROSE 50% SYRINGE 50 ML IVP PRN ×2 (16:34)
[2024-09-02 17:44] LABS: Glucose,Whole Blood 177 mg/dL (70-110)
[2024-09-02] MEDS: INSULIN ASPART (NovoLOG) 100 UNIT/ML VIAL SQ SCH (17:45)
--- NOTE | 2024-09-02 20:10 | P.PN ---
Subjective Patient seen and evaluated at bedside. No acute events overnight, no new complaints. Objective - Vital Signs Vital signs: Vital Signs Temp 98.8 F 09/02/24 16:00 Pulse 88 09/02/24 19:00 Resp 30 H 09/02/24 19:00 BP 120/63 09/02/24 18:00 Pulse Ox 96 09/02/24 19:00 FiO2 50 09/02/24 19:50 Intake & Output 09/02/24 09/02/24 09/03/24 06:59 18:59 06:59 Intake Total 2691.324 1918.697 123 Output Total 605 795 30 Balance 2086.324 1123.697 93 Weight 92.6 kg Intake: IV 1596 996 103 Dextrose 5% in Water 1, 600 100 000 ml @ 100 mls/hr IV . [id number] TRIP with Sodium Bicarb (1 Meq/ml) 150 ml Rx#:[id number] Piperacillin-Tazobactam 3 100 .375 gm In Sodium Chloride 0.9% 100 ml @ 25 mls/hr IVPB Q8H [facility] Rx#: [id number] Pressure Bag 36 36 3 Sodium Chloride 0.9% 1, 1560 260 000 ml @ 130 mls/hr IV . Q7H42M [facility] Rx#:[id number] Intake, IV Titration 975.324 592.697 Amount Dextrose 5% in Water 1, 200 000 ml @ 100 mls/hr IV . [id number] [facility]IP with Sodium Bicarb (1 Meq/ml) 150 ml Rx#:[id number] Norepinephrine 8 mg In 678.000 190.110 Sodium Chloride 0.9% 250 ml @ 0.03 MCG/KG/MIN 5. 266 mls/hr IV .Q24H [facility] Rx#:[id number] Vasopressin 60 unit In 18.4 102.587 Sodium Chloride 0.9% 150 ml @ 0.03 UNITS/MIN 4.59 mls/hr IV .Q24H [facility] Rx#: [id number] propofoL 1,000 mg In 278.924 100 Empty Bag 1 bag @ 15 MCG/ KG/MIN 8.165 mls/hr IV . [id number] [facility] Rx#:[id number] Tube Feeding 120 180 20 Other 150 Output: Gastric Drainage 150 Urine 605 645 30 Other: Voiding Method Indwelling Catheter Indwelling Catheter ABP, PAP, CO, CI - Last Documented Arterial Blood Pressure 116/53 - Exam gen: nad cv: rrr pul: non labored breathing abd: soft, non tender to palpation, no guarding or rebound tenderness, reducing inguinal hernia - Labs CBC & Chem 7: 09/02/24 02:30 09/02/24 02:30 Labs: Abnormal Lab Results - Last 24 Hours (Table) 09/01/24 09/02/24 09/02/24 Range/Units 03:05 02:30 02:30 WBC 26.0 H (3.8-10.6) k/uL RBC 4.25 L (4.30-5.90) m/uL Hgb 12.3 L (13.0-17.5) gm/dL Hct 38.1 L (39.0-53.0) % ABG pCO2 (35-45) mmHg ABG pO2 (83-108) mmHg ABG HCO3 (21-25) mmol/L ABG O2 Saturation (94-97) % Hemoglobin (13.0-17.5) gm/dL Sodium 146 H (137-145) mmol/L Chloride 114 H (98-107) mmol/L Carbon Dioxide 16 L (22-30) mmol/L BUN 95 H (9-20) mg/dL Creatinine 2.34 H (0.66-1.25) mg/dL Glucose 135 H (74-99) mg/dL POC Glucose (mg/dL) (70-110) mg/dL Calcium 7.1 L (8.4-10.2) mg/dL Cortisol 39.4 H (3.1-22.4) UG/DL 09/02/24 09/02/24 Range/Units 04:56 17:42 WBC (3.8-10.6) k/uL RBC (4.30-5.90) m/uL Hgb (13.0-17.5) gm/dL Hct (39.0-53.0) % ABG pCO2 33 L (35-45) mmHg ABG pO2 259 H (83-108) mmHg ABG HCO3 19 L (21-25) mmol/L ABG O2 Saturation 99.9 H (94-97) % Hemoglobin 12.4 L (13.0-17.5) gm/dL Sodium (137-145) mmol/L Chloride (98-107) mmol/L Carbon Dioxide (22-30) mmol/L BUN (9-20) mg/dL Creatinine (0.66-1.25) mg/dL Glucose (74-99) mg/dL POC Glucose (mg/dL) 177 H (70-110) mg/dL Calcium (8.4-10.2) mg/dL Cortisol (3.1-22.4) UG/DL Microbiology - Last 24 Hours (Table) 09/01/24 01:36 Gram Stain - Preliminary Sputum Sputum Culture - Preliminary 09/01/24 03:20 Blood Culture - Preliminary Blood 09/01/24 01:15 Urine Culture - Final Urine,Voided Assessment and Plan Assessment: 63 year old male with Aspiration PNA and Hypoxia. CT-AP shows a PSBO with a ri ght inguinal hernia containing small bowel. -Advance diet as tolerated -IV fluids -At this time it does not appear as hernia is causing a complete bowel obstruction and would manage conservatively given his Aspiration PNA and Hypoxia -Will follow closely please call with any changes Raymond Salinas DO [phone] Time with Patient: Less than 30
[2024-09-02 23:59] LABS: Glucose,Whole Blood 159 mg/dL (70-110)
[2024-09-03 04:02] LABS: HCT 30.6 % (39.0-53.0); HGB 10.2 gm/dL (13.0-17.5); MCH 29.1 pg (25.0-35.0); MCHC 33.3 g/dL (31.0-37.0); MCV 87.4 fL (80.0-100.0); Mean Platelet Volume 7.8; Platelet Count 205 k/uL (150-450); RDW 14.3 % (11.5-15.5); WBC 20.4 k/uL (3.8-10.6)
[2024-09-03 04:21] LABS: African American GFR (CKD) 50 (>60 ml/min/1.73 sqM); Anion Gap 6 mmol/L; Blood Urea Nitrogen 87 mg/dL (9-20); Calcium 7.2 mg/dL (8.4-10.2); Carbon Dioxide 27 mmol/L (22-30); Chloride 113 mmol/L (98-107); Glucose 159 mg/dL (74-99); Non-African American GFR(CKD) 44 (>60 ml/min/1.73 sqM); Potassium 2.9 mmol/L (3.5-5.1); Sodium 146 mmol/L (137-145)
[2024-09-03] MEDS ORDERED: Potassium Replacement Protocol 1 EACH MISC MISCELLANE PRN ×2 (04:31→17:57)
[2024-09-03] MEDS: POTASSIUM CHLORIDE 20 MEQ in WATER FOR INJECTION 1 100ML.BAG IVPB SCH (04:44)
[2024-09-03 06:15] LABS: Glucose,Whole Blood 160 mg/dL (70-110)
[2024-09-03 06:23] LABS: ABG Base Excess 5.3 mmol/L; ABG HCO3 28 mmol/L (21-25); ABG Oxygen Saturation 99.2 % (94-97); ABG PCO2 34 mmHg (35-45); ABG PH 7.53 (7.35-7.45); ABG PO2 125 mmHg (83-108); ABG TCO2 29 mmol/L (19-24); Allen Test Performed? Yes
--- NOTE | 2024-09-03 07:19 | XR ---
EXAMINATION TYPE: XR chest 1V portable DATE OF EXAM: 09/03/2024 4:57 AM COMPARISON: None. CLINICAL INDICATION: Male, 63 years old with history of Tube placement, TECHNIQUE: XR chest 1V portable view(s) obtained. FINDINGS: The heart size is normal. The pulmonary vasculature is mildly prominent. Mild diffuse increased lung markings are scattered bilaterally. Correlate volume overload Endotracheal tube tip is 4 cm above the renan. Nasogastric tube tip is in the left upper quadrant of the abdomen. IMPRESSION: 1. Mild scattered increased lung markings, correlate for volume overload 2. Lines and catheters discussed above [facility], , 09/03/2024 7:16 AM
--- NOTE | 2024-09-03 08:43 | P.PN ---
Subjective This is a pleasant 63 years old male who presents initially last night for flulike symptoms and found to be hypoxic. Also there was concerns of GI bleed On admission he was in respiratory distress and he has to be intubated and placed on mechanical ventilation Currently he is in the ICU and he cannot provide information which was obtained from the staff and medical records. Patient currently is afebrile, blood pressure is stable after he started on pressors, patient was hypotensive in the emergency room. Blood pressure now 105/63 Labs reviewed showing WBC 11.2, creatinine 2.7, calcium was low 6.2 Troponin x 2 are negative at 0.03 and 0.02 Urine analysis is currently concentrated sample Chest x-ray showing bibasilar infiltrates which is also seen on the CT of the abdomen and pelvis. Patient has marked right hydronephrosis with apparent obstruction at the right renal pelvis, no obvious cause. Hemoglobin is normal at 13.2 09/02 Patient remains in the ICU intubated and sedated. He is requiring FiO2 of 50% He is developing fever of 101.1, blood pressure 105/63 but requiring pressors of Levophed WBC increased significantly to 26,000, creatinine improving to 2.7 down to 2.3. Patient currently remains on Zosyn and pressors. Neurology team evaluated the patient for right hydronephrosis and no surgical intervention warranted Acute kidney injury is improving. 09/03 Patient remains in the ICU intubated and sedated This morning he was doing well, his FiO2 was lowered. He still has high PEEP of 10 However he came off the Levophed, propofol was discontinued and attempted waking up We will check to see if he will follow command He remains on Zosyn for his aspiration pneumonia Hydrocortisone was added yesterday. Cortisol level when checked was 39.4. Objective - Vital Signs Vital signs: Vital Signs Temp 98.2 F 09/03/24 08:00 Pulse 84 09/03/24 08:30 Resp 29 H 09/03/24 08:30 BP 120/63 09/02/24 23:45 Pulse Ox 97 09/03/24 08:30 FiO2 40 09/03/24 08:15 Intake & Output 09/02/24 09/03/24 09/03/24 18:59 06:59 18:59 Intake Total 2018.697 2210.260 395.068 Output Total 795 470 165 Balance 1929.579 9322.260 230.068 Weight 94.3 kg Intake: IV 996 1236 206 Dextrose 5% in Water 1, 600 1200 200 000 ml @ 100 mls/hr IV . [id number] [facility] with Sodium Bicarb (1 Meq/ml) 150 ml Rx#:[id number] Piperacillin-Tazobactam 3 100 .375 gm In Sodium Chloride 0.9% 100 ml @ 25 mls/hr IVPB Q8H [facility] Rx#: [id number] Pressure Bag 36 36 6 Sodium Chloride 0.9% 1, 260 000 ml @ 130 mls/hr IV . Q7H42M [facility] Rx#:[id number] Intake, IV Titration 692.697 334.260 69.068 Amount Dextrose 5% in Water 1, 200 000 ml @ 100 mls/hr IV . [id number] [facility]IP with Sodium Bicarb (1 Meq/ml) 150 ml Rx#:[id number] Norepinephrine 8 mg In 190.110 97.570 7.198 Sodium Chloride 0.9% 250 ml @ 0.03 MCG/KG/MIN 5. 266 mls/hr IV .Q24H [facility] Rx#:[id number] Vasopressin 60 unit In 102.587 50.643 Sodium Chloride 0.9% 150 ml @ 0.03 UNITS/MIN 4.59 mls/hr IV .Q24H [facility] Rx#: [id number] propofoL 1,000 mg In 200 186.047 61.870 Empty Bag 1 bag @ 15 MCG/ KG/MIN 8.165 mls/hr IV . [id number] [facility] Rx#:[id number] Tube Feeding 180 340 60 Other 150 300 60 Output: Gastric Drainage 150 Urine 645 470 165 Other: Voiding Method Indwelling Catheter Indwelling Catheter ABP, PAP, CO, CI - Last Documented Arterial Blood Pressure 134/46 - Exam GENERAL: T intubated and sedated HEENT: Pupils are round and equally reacting to light. EOMI. No scleral icterus. No conjunctival pallor. Normocephalic, atraumatic. No pharyngeal erythema. No thyromegaly. CARDIOVASCULAR: S1 and S2 present. No murmurs, rubs, or gallops. PULMONARY: Chest is clear to auscultation, no wheezing , no crackles. ABDOMEN: Soft, nontender, nondistended, normoactive bowel sounds. No palpable organomegaly. MUSCULOSKELETAL: No joint swelling or deformity. EXTREMITIES: No cyanosis, clubbing, or pedal edema. NEUROLOGICAL: Gross neurological examination did not reveal any focal deficits. SKIN: No rashes. no petechiae. - Labs CBC & Chem 7: 09/03/24 03:35 09/03/24 03:35 Labs: Abnormal Lab Results - Last 24 Hours (Table) 09/02/24 09/02/24 09/03/24 Range/Units 17:42 23:58 03:35 WBC 20.4 H (3.8-10.6) k/uL RBC 3.50 L (4.30-5.90) m/uL Hgb 10.2 L (13.0-17.5) gm/dL Hct 30.6 L (39.0-53.0) % ABG pH (7.35-7.45) ABG pCO2 (35-45) mmHg ABG pO2 (83-108) mmHg ABG HCO3 (21-25) mmol/L ABG Total CO2 (19-24) mmol/L ABG O2 Saturation (94-97) % Hemoglobin (13.0-17.5) gm/dL Sodium (137-145) mmol/L Potassium (3.5-5.1) mmol/L Chloride (98-107) mmol/L BUN (9-20) mg/dL Creatinine (0.66-1.25) mg/dL Glucose (74-99) mg/dL POC Glucose (mg/dL) 177 H 159 H (70-110) mg/dL Calcium (8.4-10.2) mg/dL 09/03/24 09/03/24 09/03/24 Range/Units 03:35 06:14 06:19 WBC (3.8-10.6) k/uL RBC (4.30-5.90) m/uL Hgb (13.0-17.5) gm/dL Hct (39.0-53.0) % ABG pH 7.53 H (7.35-7.45) ABG pCO2 34 L (35-45) mmHg ABG pO2 125 H (83-108) mmHg ABG HCO3 28 H (21-25) mmol/L ABG Total CO2 29 H (19-24) mmol/L ABG O2 Saturation 99.2 H (94-97) % Hemoglobin 10.5 L (13.0-17.5) gm/dL Sodium 146 H (137-145) mmol/L Potassium 2.9 L (3.5-5.1) mmol/L Chloride 113 H (98-107) mmol/L BUN 87 H (9-20) mg/dL Creatinine 1.63 H (0.66-1.25) mg/dL Glucose 159 H (74-99) mg/dL POC Glucose (mg/dL) 160 H (70-110) mg/dL Calcium 7.2 L (8.4-10.2) mg/dL Microbiology - Last 24 Hours (Table) 09/01/24 01:36 Gram Stain - Preliminary Sputum Sputum Culture - Preliminary 09/01/24 03:20 Blood Culture - Preliminary Blood 09/01/24 01:15 Urine Culture - Final Urine,Voided Assessment and Plan Assessment: Acute hypoxic respiratory failure requiring intubation and mechanical ventilation Bibasilar pneumonia suspicious for aspiration pneumonia septic shock secondary to above Acute kidney injury Marked right hydronephrosis History of Parkinson disease Plan: Continue in the ICU with pulmonary/critical care team consult Continue with mechanical ventilation as per ICU team. Patient started on Zosyn. Follow-up culture results Continue with pressors Urology team consulted for his right hydronephrosis. Nephrology team consult General Surgery consulted for concerns for possible GI bleed. However his hemoglobin is stable currently GI prophylaxis: Protonix, continue with IV Protonix DVT prophylaxis: Mechanical prophylaxis Prognosis is guarded
[2024-09-03] MEDS: DEXTROSE 5% IN WATER 1,000 ML IV SCH (10:00)
[2024-09-03 11:28] LABS: Glucose,Whole Blood 124 mg/dL (70-110)
--- NOTE | 2024-09-03 11:40 | P.PN ---
Subjective Patient is seen for follow-up for acute kidney injury. Off of pressors today. Serum sodium is 146. IV fluids changed to D5W this morning. Urine output at 50 to 60 cc/h. Serum creatinine decreased to 1.6 today. Sodium was 146. Objective - Vital Signs Vital signs: Vital Signs Temp 98.2 F 09/03/24 08:00 Pulse 82 09/03/24 11:29 Resp 29 H 09/03/24 11:00 BP 113/60 09/03/24 10:15 Pulse Ox 98 09/03/24 11:00 FiO2 40 09/03/24 11:24 Intake & Output 09/02/24 09/03/24 09/03/24 18:59 06:59 18:59 Intake Total 2018.697 2210.260 704.068 Output Total 795 470 350 Balance 3543.818 0639.260 354.068 Weight 94.3 kg Intake: IV 996 1236 515 Dextrose 5% in Water 1, 600 1200 300 000 ml @ 100 mls/hr IV . [id number] TRIP with Sodium Bicarb (1 Meq/ml) 150 ml Rx#:[id number] Piperacillin-Tazobactam 3 100 200 .375 gm In Sodium Chloride 0.9% 100 ml @ 25 mls/hr IVPB Q8H TRIP Rx#: [id number] Pressure Bag 36 36 15 Sodium Chloride 0.9% 1, 260 000 ml @ 130 mls/hr IV . [id number] TRIP Rx#:[id number] Intake, IV Titration 692.697 334.260 69.068 Amount Dextrose 5% in Water 1, 200 000 ml @ 100 mls/hr IV . [id number] TRIP with Sodium Bicarb (1 Meq/ml) 150 ml Rx#:[id number] Norepinephrine 8 mg In 190.110 97.570 7.198 Sodium Chloride 0.9% 250 ml @ 0.03 MCG/KG/MIN 5. 266 mls/hr IV .Q24H TRIP Rx#:[id number] Vasopressin 60 unit In 102.587 50.643 Sodium Chloride 0.9% 150 ml @ 0.03 UNITS/MIN 4.59 mls/hr IV .Q24H TRIP Rx#: [id number] propofoL 1,000 mg In 200 186.047 61.870 Empty Bag 1 bag @ 15 MCG/ KG/MIN 8.165 mls/hr IV . [id number] [facility] Rx#:[id number] Tube Feeding 180 340 60 Other 150 300 60 Output: Gastric Drainage 150 Urine 645 470 350 Other: Voiding Method Indwelling Catheter Indwelling Catheter Indwelling Catheter ABP, PAP, CO, CI - Last Documented Arterial Blood Pressure 141/45 - Exam Patient remains on the vent. Examination of the heart S1 and S2 Examination of the lungs bilateral breath sounds are heard Abdomen is soft nontender Examination of lower extremities shows 1+ edema - Labs CBC & Chem 7: 09/03/24 03:35 09/03/24 03:35 Labs: Abnormal Lab Results - Last 24 Hours (Table) 09/02/24 09/02/24 09/03/24 Range/Units 17:42 23:58 03:35 WBC 20.4 H (3.8-10.6) k/uL RBC 3.50 L (4.30-5.90) m/uL Hgb 10.2 L (13.0-17.5) gm/dL Hct 30.6 L (39.0-53.0) % ABG pH (7.35-7.45) ABG pCO2 (35-45) mmHg ABG pO2 (83-108) mmHg ABG HCO3 (21-25) mmol/L ABG Total CO2 (19-24) mmol/L ABG O2 Saturation (94-97) % Hemoglobin (13.0-17.5) gm/dL Sodium (137-145) mmol/L Potassium (3.5-5.1) mmol/L Chloride (98-107) mmol/L BUN (9-20) mg/dL Creatinine (0.66-1.25) mg/dL Glucose (74-99) mg/dL POC Glucose (mg/dL) 177 H 159 H (70-110) mg/dL Calcium (8.4-10.2) mg/dL 09/03/24 09/03/24 09/03/24 Range/Units 03:35 06:14 06:19 WBC (3.8-10.6) k/uL RBC (4.30-5.90) m/uL Hgb (13.0-17.5) gm/dL Hct (39.0-53.0) % ABG pH 7.53 H (7.35-7.45) ABG pCO2 34 L (35-45) mmHg ABG pO2 125 H (83-108) mmHg ABG HCO3 28 H (21-25) mmol/L ABG Total CO2 29 H (19-24) mmol/L ABG O2 Saturation 99.2 H (94-97) % Hemoglobin 10.5 L (13.0-17.5) gm/dL Sodium 146 H (137-145) mmol/L Potassium 2.9 L (3.5-5.1) mmol/L Chloride 113 H (98-107) mmol/L BUN 87 H (9-20) mg/dL Creatinine 1.63 H (0.66-1.25) mg/dL Glucose 159 H (74-99) mg/dL POC Glucose (mg/dL) 160 H (70-110) mg/dL Calcium 7.2 L (8.4-10.2) mg/dL 09/03/24 Range/Units 11:26 WBC (3.8-10.6) k/uL RBC (4.30-5.90) m/uL Hgb (13.0-17.5) gm/dL Hct (39.0-53.0) % ABG pH (7.35-7.45) ABG pCO2 (35-45) mmHg ABG pO2 (83-108) mmHg ABG HCO3 (21-25) mmol/L ABG Total CO2 (19-24) mmol/L ABG O2 Saturation (94-97) % Hemoglobin (13.0-17.5) gm/dL Sodium (137-145) mmol/L Potassium (3.5-5.1) mmol/L Chloride (98-107) mmol/L BUN (9-20) mg/dL Creatinine (0.66-1.25) mg/dL Glucose (74-99) mg/dL POC Glucose (mg/dL) 124 H (70-110) mg/dL Calcium (8.4-10.2) mg/dL Microbiology - Last 24 Hours (Table) 09/01/24 01:36 Gram Stain - Final Sputum Sputum Culture - Final Richelle albicans 09/01/24 03:20 Blood Culture - Preliminary Blood 09/01/24 01:15 Urine Culture - Final Urine,Voided Assessment and Plan Assessment: 1. Acute kidney injury ATN currently nonoliguric secondary to sepsis and hypotension, improving. Solitary functioning kidney which is the left kidney. Patient has chronic hydronephrosis of right kidney with minimal function as per urology 2. Right hydronephrosis noted. This appears to be chronic. Urology on consult. 3. Acute hypoxic respiratory failure currently on on the ventilator. 4. Aspiration pneumonia 5. History of Parkinson's disease 6. Metabolic acidosis secondary to acute kidney injury 7. Hypokalemia associated with IV bicarb use Plan: DC IV bicarb Continue with D5W Add free water with tube feedings if patient is not extubated. Continue with antibiotics Repeat labs in a.m.
--- NOTE | 2024-09-03 12:47 | P.PN ---
Subjective Patient is a 63-year-old male with past medical history significant for Parkinson disease, with nerve brain stimulator hypertension, hyperlipidemia. According to the ER note, patient has had a couple days of nausea, vomiting, and shortness of breath. Found to be increasingly lethargic while at home and EMS was called. Noted to have brown emesis and around by EMS. Of note, reportedly had a recent hospitalization at [facility] for issues with his kidney function. On arrival to the ED, noted to be in some respiratory distress, placed on BiPAP with initial settings 10/5 and FiO2 100%. He did have a CT of the abdomen and pelvis which demonstrated bibasilar airspace consolidations with air bronchograms and small bilateral effusions. Also, right inguinal hernia containing loop of small bowel and possible partial small bowel obstruction. Normal caliber colon with mild fecal retention. Marked right-sided hydronephrosis at the ureteropelvic junction. A nasogastric tube was inserted in the emergency department for gastric decompression, and a total of 1 L of brown fecal like content was immediately evacuated. On my initial evaluation in the emergency department, patient was in trauma bay 2. He was comatose state and obviously unable to protect his airway. He was on BiPAP with above-mentioned settings. Breathing in the high 30s. SpO2 was reading 80%. Patient obviously needed to be intubated. PUMP ERECTOR was called and rapid sequence intubation was carried out. Initial ventilator settings included AC, respiratory rate 20, tidal volume of 500, FiO2 100%, PEEP of 5. During intubation, patient had a large volume of presumably gastric contents pulling in his posterior oropharynx. Postintubation chest x-ray shows the endotracheal tube in appropriate position above the renan, there is orogastric tube coursing be low the diaphragm. There continues to have bibasilar consolidations and probable small pleural effusions. Following intubation, patient became profoundly hypotensive, he is currently receiving a normal saline bolus. He was placed on Levaquin in the emergency department. There is no obvious concern for aspiration pneumonia. CBC: WBC count 11.7, hemoglobin 15.1, hematocrit 45, platelets 299. CMP: Sodium 140, potassium 4.7, chloride 103, serum bicarb 25, BUN 100, creatinine 2.84, glucose 95. Lactic 1.4. LFTs mildly elevated. Pancreatic lipase is 81. Troponin 0.032. Is negative for influenza, RSV, COVID. Unfortunately, we are unable to get a hold of family at this time. Patient is listed as a full code. Progress note dated September 02, 2024: Patient seen in the intensive care unit this morning, no significant overnight events. Patient remains intubated, vent settings AC, rate 24, tidal volume 500, FiO2 50%, and PEEP 10. ABG: CO2 33, O2 259, pH 7.37. CMP: Sodium 146, potassium 3.8, chloride 114, CO2 16, BUN 95, creatinine 2.34, procalcitonin from yesterday 13.1, and cortisol 39.4. Chest x-ray shows endotracheal tube about 5.6 cm above the tracheal renan. Mild worsening patchy bilateral lung infiltrates. Progress note dated September 03, 2024: Patient seen in the ICU this morning, no significant overnight events. Patient remains intubated, vent settings AC, respiratory rate 24, tidal volume 500, FiO2 40%, and PEEP of 10. ABG: O2 125, CO2 34, and pH 7.53. CBC: WBC 20.4, hemoglobin 10.2, hematocrit 30.6, and platelet count 205. CMP: Sodium 146, potassium 2.9, chloride 113, BUN 87, creatinine 1.63, glucose 156, and calcium 7.2. Chest x-ray shows mild scattered increased lung markings, endotracheal tube tip is 4 cm above the renan, and NG tube is in the LUQ of the abdomen. Drips: Levophed 0.02 mcg/kg/min. Tube feeds currently off in anticipation of potential extubation, currently replacing potassium per protocol will recheck at noon and reassess. D5W 40cc.hr ROS: Cannot obtain at this time Physical exam: GENERAL EXAM: 63-year-old male, intubated to mechanical ventilator, synchronous with set rate HEAD: Normocephalic and atraumatic EYES: Normal reaction of pupils, equal size. NOSE: Clear with pink turbinates. THROAT: No erythema or exudates. NECK: No masses, no JVD. CHEST: No chest wall deformity. Left chest implanted device LUNGS: Equal air entry with diffuse rhonchi and crackles. Intubated mechanical ventilator, peak pressures in the order of 30 to and static airway pressure 27. Minimal endotracheal secretions at this time. Small amounts of presumably gastric content was aspirated from the oropharynx. CVS: S1 and S2 normal with no audible murmur, regular rhythm. No extra heart sounds ABDOMEN: No hepatosplenomegaly, hyperactive bowel sounds, no guarding or rigidity. SPINE: No scoliosis or deformity SKIN: No rashes CENTRAL NERVOUS SYSTEM: Comatose and now off propofol, extremities flaccid no obvious focal deficits. Able to open eyes to his name, but no movement of the extremities. Gag reflex present. Grimaces when adjusting ET tube. EXTREMITIES: There is no peripheral edema, clubbing, or cyanosis. Peripheral pulses are intact. Assessment: Acute hypoxemic and hypercapnic respiratory failure secondary to aspiration and bibasilar aspiration pneumonia, patient was intubated by PUMP ERECTOR, large-volume presumedly gastric contents pooling in the posterior oropharynx noted during intubation. CT of the abdomen and pelvis, demonstrating bibasilar airspace consolidations and air bronchograms and small bilateral effusions. Possible partial small bowel obstruction, CT of the abdomen and pelvis de monstrating right inguinal hernia containing loops of small bowel and possible partial small bowel obstruction. Normal caliber colon with mild fecal retention. Marked right-sided hydronephrosis at the ureteropelvic junction. No obvious stones reported on CT Acute kidney injury, possibly secondary to above Right-sided hydronephrosis Postintubation hypotension, patient is currently being fluid resuscitated, may require vasopressors to maintain MAP of 65 mmHg or greater History of hypertension History of hyperlipidemia History of Parkinson disease with nerve stimulator Plan: Patient remains mechanically ventilated, endotracheal tube was approximately 4 cm above the tracheal renan With elevated sodium (146), and low potassium (2.9) patient will be started on D5W 40 cc/h after calculating free water deficit. Tube feeds were being held with anticipation of DIS SBT, but neurologically patient is not profoundly responsive. Will attempt another trial tomorrow. Patient continues on Reglan 10 mg IVP every 6 HR After patient received one-time hydrocortisone succinate 100 mg IV as well as being placed on hydrocortisone succinate 50 mg IV every 6 HR there was a resultant increase in blood pressure, and now Levophed and vasopressin have been discontinued with blood pressure still remaining within normal limits. Likely indicates some relative adrenal insufficiency. Continue Zosyn for aspiration pneumonia (day 3). Urology on consult for right-sided hydronephrosis and ELIJAH as well as nephrology consulted for ELIJAH. Prognosis guarded. Objective - Vital Signs Vital signs: Vital Signs Temp 98.9 F 09/03/24 04:00 Pulse 68 09/03/24 07:00 Resp 24 09/03/24 07:00 BP 120/63 09/02/24 23:45 Pulse Ox 97 09/03/24 07:00 FiO2 40 09/03/24 06:24 Intake & Output 09/02/24 09/03/24 09/03/24 18:59 06:59 18:59 Intake Total 2018.697 2210.260 163 Output Total 795 470 40 Balance 0687.617 7690.260 123 Weight 94.3 kg Intake: IV 996 1236 103 Dextrose 5% in Water 1, 600 1200 100 000 ml @ 100 mls/hr IV . [id number] TRIP with Sodium Bicarb (1 Meq/ml) 150 ml Rx#:[id number] Piperacillin-Tazobactam 3 100 .375 gm In Sodium Chloride 0.9% 100 ml @ 25 mls/hr IVPB Q8H TRIP Rx#: [id number] Pressure Bag 36 36 3 Sodium Chloride 0.9% 1, 260 000 ml @ 130 mls/hr IV . Q7H42M TRIP Rx#:[id number] Intake, IV Titration 692.697 334.260 Amount Dextrose 5% in Water 1, 200 000 ml @ 100 mls/hr IV . [id number] TRIP with Sodium Bicarb (1 Meq/ml) 150 ml Rx#:[id number] Norepinephrine 8 mg In 190.110 97.570 Sodium Chloride 0.9% 250 ml @ 0.03 MCG/KG/MIN 5. 266 mls/hr IV .Q24H TRIP Rx#:[id number] Vasopressin 60 unit In 102.587 50.643 Sodium Chloride 0.9% 150 ml @ 0.03 UNITS/MIN 4.59 mls/hr IV .Q24H TRIP Rx#: [id number] propofoL 1,000 mg In 200 186.047 Empty Bag 1 bag @ 15 MCG/ KG/MIN 8.165 mls/hr IV . [id number] TRIP Rx#:[id number] Tube Feeding 180 340 30 Other 150 300 30 Output: Gastric Drainage 150 Urine 645 470 40 Other: Voiding Method Indwelling Catheter Indwelling Catheter ABP, PAP, CO, CI - Last Documented Arterial Blood Pressure 118/48 - Labs CBC & Chem 7: 09/03/24 03:35 09/03/24 03:35 Labs: Abnormal Lab Results - Last 24 Hours (Table) 09/02/24 09/02/24 09/03/24 Range/Units 17:42 23:58 03:35 WBC 20.4 H (3.8-10.6) k/uL RBC 3.50 L (4.30-5.90) m/uL Hgb 10.2 L (13.0-17.5) gm/dL Hct 30.6 L (39.0-53.0) % ABG pH (7.35-7.45) ABG pCO2 (35-45) mmHg ABG pO2 (83-108) mmHg ABG HCO3 (21-25) mmol/L ABG Total CO2 (19-24) mmol/L ABG O2 Saturation (94-97) % Hemoglobin (13.0-17.5) gm/dL Sodium (137-145) mmol/L Potassium (3.5-5.1) mmol/L Chloride (98-107) mmol/L BUN (9-20) mg/dL Creatinine (0.66-1.25) mg/dL Glucose (74-99) mg/dL POC Glucose (mg/dL) 177 H 159 H (70-110) mg/dL Calcium (8.4-10.2) mg/dL 09/03/24 09/03/24 09/03/24 Range/Units 03:35 06:14 06:19 WBC (3.8-10.6) k/uL RBC (4.30-5.90) m/uL Hgb (13.0-17.5) gm/dL Hct (39.0-53.0) % ABG pH 7.53 H (7.35-7.45) ABG pCO2 34 L (35-45) mmHg ABG pO2 125 H (83-108) mmHg ABG HCO3 28 H (21-25) mmol/L ABG Total CO2 29 H (19-24) mmol/L ABG O2 Saturation 99.2 H (94-97) % Hemoglobin 10.5 L (13.0-17.5) gm/dL Sodium 146 H (137-145) mmol/L Potassium 2.9 L (3.5-5.1) mmol/L Chloride 113 H (98-107) mmol/L BUN 87 H (9-20) mg/dL Creatinine 1.63 H (0.66-1.25) mg/dL Glucose 159 H (74-99) mg/dL POC Glucose (mg/dL) 160 H (70-110) mg/dL Calcium 7.2 L (8.4-10.2) mg/dL Microbiology - Last 24 Hours (Table) 09/01/24 01:36 Gram Stain - Preliminary Sputum Sputum Culture - Preliminary 09/01/24 03:20 Blood Culture - Preliminary Blood 09/01/24 01:15 Urine Culture - Final Urine,Voided
--- NOTE | 2024-09-03 14:11 | P.PN ---
Subjective Progress Note Date: 09/03/24 SURGICAL PROGRESS NOTE CHIEF COMPLAINT: Aspiration pneumonia HISTORY OF PRESENT ILLNESS: Patient remains in the ICU and intubated. Patient undergoing a weaning trial today. Tube feeds currently on hold for weaning trial. Per nursing staff patient has had no bowel movements. Afebrile. WBC did go down from 26-20 potassium 2.9 and being replaced PHYSICAL EXAM: VITAL SIGNS: Reviewed. GENERAL: no acute distress. Intubated ABDOMEN: Soft. Mildly distended. Nontender. ASSESSMENT: 1. Partial small bowel obstruction with right inguinal hernia containing small bowel 2. Aspiration pneumonia and hypoxia PLAN: -Vent management per pulmonary service -Continue conservative management for partial small bowel obstruction due to aspiration pneumonia and hypoxia -Continue tube feeds via NG tube Physician Home Performance Laborer note has been reviewed by physician. Signing provider agrees with the documented findings, assessment, and plan of care. Objective - Vital Signs Vital signs: Vital Signs Temp 98.2 F 09/03/24 08:00 Pulse 77 09/03/24 11:39 Resp 27 H 09/03/24 11:30 BP 113/60 09/03/24 10:15 Pulse Ox 98 09/03/24 11:00 FiO2 40 09/03/24 11:30 Intake & Output 09/02/24 09/03/24 09/03/24 18:59 06:59 18:59 Intake Total 2018.697 2210.260 704.068 Output Total 795 470 350 Balance 6866.145 5685.260 354.068 Weight 94.3 kg Intake: IV 996 1236 515 Dextrose 5% in Water 1, 600 1200 300 000 ml @ 100 mls/hr IV . [id number] TRIP with Sodium Bicarb (1 Meq/ml) 150 ml Rx#:[id number] Piperacillin-Tazobactam 3 100 200 .375 gm In Sodium Chloride 0.9% 100 ml @ 25 mls/hr IVPB Q8H TRIP Rx#: [id number] Pressure Bag 36 36 15 Sodium Chloride 0.9% 1, 260 000 ml @ 130 mls/hr IV . Q7H42M TRIP Rx#:[id number] Intake, IV Titration 692.697 334.260 69.068 Amount Dextrose 5% in Water 1, 200 000 ml @ 100 mls/hr IV . [id number] TRIP with Sodium Bicarb (1 Meq/ml) 150 ml Rx#:[id number] Norepinephrine 8 mg In 190.110 97.570 7.198 Sodium Chloride 0.9% 250 ml @ 0.03 MCG/KG/MIN 5. 266 mls/hr IV .Q24H TRIP Rx#:[id number] Vasopressin 60 unit In 102.587 50.643 Sodium Chloride 0.9% 150 ml @ 0.03 UNITS/MIN 4.59 mls/hr IV .Q24H TRIP Rx#: [id number] propofoL 1,000 mg In 200 186.047 61.870 Empty Bag 1 bag @ 15 MCG/ KG/MIN 8.165 mls/hr IV . [id number] TRIP Rx#:[id number] Tube Feeding 180 340 60 Other 150 300 60 Output: Gastric Drainage 150 Urine 645 470 350 Other: Voiding Method Indwelling Catheter Indwelling Catheter Indwelling Catheter ABP, PAP, CO, CI - Last Documented Arterial Blood Pressure 141/45 - Labs CBC & Chem 7: 09/03/24 03:35 09/03/24 03:35 Labs: Abnormal Lab Results - Last 24 Hours (Table) 09/02/24 09/02/24 09/03/24 Range/Units 17:42 23:58 03:35 WBC 20.4 H (3.8-10.6) k/uL RBC 3.50 L (4.30-5.90) m/uL Hgb 10.2 L (13.0-17.5) gm/dL Hct 30.6 L (39.0-53.0) % ABG pH (7.35-7.45) ABG pCO2 (35-45) mmHg ABG pO2 (83-108) mmHg ABG HCO3 (21-25) mmol/L ABG Total CO2 (19-24) mmol/L ABG O2 Saturation (94-97) % Hemoglobin (13.0-17.5) gm/dL Sodium (137-145) mmol/L Potassium (3.5-5.1) mmol/L Chloride (98-107) mmol/L BUN (9-20) mg/dL Creatinine (0.66-1.25) mg/dL Glucose (74-99) mg/dL POC Glucose (mg/dL) 177 H 159 H (70-110) mg/dL Calcium (8.4-10.2) mg/dL 09/03/24 09/03/24 09/03/24 Range/Units 03:35 06:14 06:19 WBC (3.8-10.6) k/uL RBC (4.30-5.90) m/uL Hgb (13.0-17.5) gm/dL Hct (39.0-53.0) % ABG pH 7.53 H (7.35-7.45) ABG pCO2 34 L (35-45) mmHg ABG pO2 125 H (83-108) mmHg ABG HCO3 28 H (21-25) mmol/L ABG Total CO2 29 H (19-24) mmol/L ABG O2 Saturation 99.2 H (94-97) % Hemoglobin 10.5 L (13.0-17.5) gm/dL Sodium 146 H (137-145) mmol/L Potassium 2.9 L (3.5-5.1) mmol/L Chloride 113 H (98-107) mmol/L BUN 87 H (9-20) mg/dL Creatinine 1.63 H (0.66-1.25) mg/dL Glucose 159 H (74-99) mg/dL POC Glucose (mg/dL) 160 H (70-110) mg/dL Calcium 7.2 L (8.4-10.2) mg/dL 09/03/24 Range/Units 11:26 WBC (3.8-10.6) k/uL RBC (4.30-5.90) m/uL Hgb (13.0-17.5) gm/dL Hct (39.0-53.0) % ABG pH (7.35-7.45) ABG pCO2 (35-45) mmHg ABG pO2 (83-108) mmHg ABG HCO3 (21-25) mmol/L ABG Total CO2 (19-24) mmol/L ABG O2 Saturation (94-97) % Hemoglobin (13.0-17.5) gm/dL Sodium (137-145) mmol/L Potassium (3.5-5.1) mmol/L Chloride (98-107) mmol/L BUN (9-20) mg/dL Creatinine (0.66-1.25) mg/dL Glucose (74-99) mg/dL POC Glucose (mg/dL) 124 H (70-110) mg/dL Calcium (8.4-10.2) mg/dL Microbiology - Last 24 Hours (Table) 09/01/24 03:20 Blood Culture - Preliminary Blood 09/01/24 01:36 Gram Stain - Final Sputum Sputum Culture - Final Richelle albicans 09/01/24 01:15 Urine Culture - Final Urine,Voided
[2024-09-03 16:59] LABS: Potassium 3.1 mmol/L (3.5-5.1)
[2024-09-03 17:31] LABS: Glucose,Whole Blood 115 mg/dL (70-110)
[2024-09-03] MEDS: HYDROmorphone 1 MG/ML 1 ML SYRINGE IVP PRN (18:07)
[2024-09-03] MEDS: POTASSIUM BICARBONATE/CIT AC 20 MEQ TABLET.EFF NG-TUBE SCH (18:12)
[2024-09-03] MEDS: CARBIDOPA-LEVODOPA 25-100 MG 1 EACH TAB PO SCH (20:55)
[2024-09-03] MEDS: METOCLOPRAMIDE 5 MG/ML 2 ML VIAL IVP SCH (20:56)
[2024-09-03] MEDS: HYDROCORTISONE SUCCINATE 100 MG/2 ML VIAL IV SCH (20:56)
[2024-09-04 00:20] LABS: Glucose,Whole Blood 150 mg/dL (70-110)
[2024-09-04 04:56] LABS: HCT 31.2 % (39.0-53.0); HGB 10.5 gm/dL (13.0-17.5); MCH 29.5 pg (25.0-35.0); MCHC 33.7 g/dL (31.0-37.0); MCV 87.5 fL (80.0-100.0); Mean Platelet Volume 8.7; Platelet Count 192 k/uL (150-450); RBC 3.56 m/uL (4.30-5.90); RDW 14.2 % (11.5-15.5)
[2024-09-04 05:15] LABS: African American GFR (CKD) 66 (>60 ml/min/1.73 sqM); Anion Gap 6 mmol/L; Blood Urea Nitrogen 75 mg/dL (9-20); Calcium 7.2 mg/dL (8.4-10.2); Carbon Dioxide 28 mmol/L (22-30); Chloride 112 mmol/L (98-107); Glucose 148 mg/dL (74-99); Non-African American GFR(CKD) 57 (>60 ml/min/1.73 sqM); Potassium 3.8 mmol/L (3.5-5.1); Sodium 146 mmol/L (137-145)
[2024-09-04] MEDS: POTASSIUM BICARBONATE/CIT AC 20 MEQ TABLET.EFF NG-TUBE SCH (05:32)
[2024-09-04] MEDS ORDERED: POTASSIUM CHLORIDE ER 20 MEQ TAB.ER PO SCH (06:00)
[2024-09-04 06:08] LABS: ABG Base Excess 5.5 mmol/L; ABG HCO3 29 mmol/L (21-25); ABG Oxygen Saturation 95.4 % (94-97); ABG PCO2 37 mmHg (35-45); ABG PO2 71 mmHg (83-108); ABG TCO2 30 mmol/L (19-24); Allen Test Performed? Yes
--- NOTE | 2024-09-04 11:05 | XR ---
EXAMINATION TYPE: XR chest 1V portable DATE OF EXAM: 09/04/2024 4:08 AM COMPARISON: None. CLINICAL INDICATION: Male, 63 years old with history of Intubated, OG tube, acute resp failure, TECHNIQUE: XR chest 1V portable view(s) obtained. FINDINGS: The heart size is mildly prominent. Electronic device overlies left chest with lead directed into the neck The pulmonary vasculature is normal. Mild increased lung markings are in the left perihilar and right lower lobes. Correlate for pulmonary edema. Early congestive heart failure can be considered. Endotracheal tube is present with the tip 2 cm above the renan. Nasogastric tube transverses the tho rax. IMPRESSION: 1. Clinical correlation recommended for developing congestive heart failure. 2. Lines and catheters discussed above. Endotracheal tube tip is low lying at 2 cm above the renan. [facility], , 09/04/2024 11:03 AM
--- NOTE | 2024-09-04 11:32 | P.PN ---
Subjective Progress Note Date: 09/04/24 SURGICAL PROGRESS NOTE CHIEF COMPLAINT: Aspiration pneumonia HISTORY OF PRESENT ILLNESS: Patient remains in the ICU and on mechanical ventilation. Tube feedings have been restarted via NG tube. Patient tolerating tube feeds. Patient has not had any bowel movements. Afebrile. WBC is down from 20-16 PHYSICAL EXAM: VITAL SIGNS: Reviewed. GENERAL: no acute distress. Intubated ABDOMEN: Soft. Mildly distended. Nontender. ASSESSMENT: 1. Partial small bowel obstruction with right inguinal hernia containing small bowel 2. Aspiration pneumonia and hypoxia PLAN: -Vent management per pulmonary service -Continue conservative management for partial small bowel obstruction due to aspiration pneumonia and hypoxia -Continue tube feeds via NG tube Physician Music Video Producer note has been reviewed by physician. Signing provider agrees with the documented findings, assessment, and plan of care. Objective - Vital Signs Vital signs: Vital Signs Temp 98.6 F 09/04/24 08:00 Pulse 75 09/04/24 10:00 Resp 28 H 09/04/24 10:00 BP 136/70 09/04/24 10:00 Pulse Ox 97 09/04/24 10:00 FiO2 40 09/04/24 09:44 Intake & Output 09/03/24 09/04/24 09/04/24 18:59 06:59 18:59 Intake Total 2624.068 3868 592 Output Total 800 575 415 Balance 460.458 0738 177 Weight 96.5 kg Intake: IV 896 576 192 Dextrose 5% in Water 1, 300 000 ml @ 100 mls/hr IV . [id number] TRIP with Sodium Bicarb (1 Meq/ml) 150 ml Rx#:[id number] Dextrose 5% in Water 1, 360 540 180 000 ml @ 45 mls/hr IV . [id number] TRIP Rx#:[id number] Piperacillin-Tazobactam 3 200 .375 gm In Sodium Chloride 0.9% 100 ml @ 25 mls/hr IVPB Q8H TRIP Rx#: [id number] Pressure Bag 36 36 12 Intake, IV Titration 69.068 Amount Norepinephrine 8 mg In 7.198 Sodium Chloride 0.9% 250 ml @ 0.03 MCG/KG/MIN 5. 266 mls/hr IV .Q24H TRIP Rx#:[id number] propofoL 1,000 mg In 61.870 Empty Bag 1 bag @ 15 MCG/ KG/MIN 8.165 mls/hr IV . [id number] [facility] Rx#:[id number] Tube Feeding 220 540 200 Other 220 660 200 Output: Urine 800 575 415 Other: Voiding Method Indwelling Catheter Indwelling Catheter Indwelling Catheter ABP, PAP, CO, CI - Last Documented Arterial Blood Pressure 161/50 - Labs CBC & Chem 7: 09/04/24 04:45 09/04/24 04:45 Labs: Abnormal Lab Results - Last 24 Hours (Table) 09/03/24 09/03/24 09/04/24 Range/Units 16:29 17:29 00:18 WBC (3.8-10.6) k/uL RBC (4.30-5.90) m/uL Hgb (13.0-17.5) gm/dL Hct (39.0-53.0) % ABG pH (7.35-7.45) ABG pO2 (83-108) mmHg ABG HCO3 (21-25) mmol/L ABG Total CO2 (19-24) mmol/L Hemoglobin (13.0-17.5) gm/dL Sodium 147 H (137-145) mmol/L Potassium 3.1 L (3.5-5.1) mmol/L Chloride (98-107) mmol/L BUN (9-20) mg/dL Creatinine (0.66-1.25) mg/dL Glucose (74-99) mg/dL POC Glucose (mg/dL) 115 H 150 H (70-110) mg/dL Calcium (8.4-10.2) mg/dL 09/04/24 09/04/24 09/04/24 Range/Units 04:45 04:45 06:03 WBC 16.0 H (3.8-10.6) k/uL RBC 3.56 L (4.30-5.90) m/uL Hgb 10.5 L (13.0-17.5) gm/dL Hct 31.2 L (39.0-53.0) % ABG pH 7.50 H (7.35-7.45) ABG pO2 71 L (83-108) mmHg ABG HCO3 29 H (21-25) mmol/L ABG Total CO2 30 H (19-24) mmol/L Hemoglobin 10.6 L (13.0-17.5) gm/dL Sodium 146 H (137-145) mmol/L Potassium (3.5-5.1) mmol/L Chloride 112 H (98-107) mmol/L BUN 75 H (9-20) mg/dL Creatinine 1.31 H (0.66-1.25) mg/dL Glucose 148 H (74-99) mg/dL POC Glucose (mg/dL) (70-110) mg/dL Calcium 7.2 L (8.4-10.2) mg/dL Microbiology - Last 24 Hours (Table) 09/01/24 03:20 Blood Culture - Preliminary Blood 09/01/24 01:36 Gram Stain - Final Sputum Sputum Culture - Final Richelle albicans
[2024-09-04] MEDS: atenoloL 25 MG TAB PO SCH (11:47)
--- NOTE | 2024-09-04 12:16 | P.PN ---
Subjective Patient is a 63-year-old male with past medical history significant for Parkinson disease, with nerve brain stimulator hypertension, hyperlipidemia. According to the ER note, patient has had a couple days of nausea, vomiting, and shortness of breath. Found to be increasingly lethargic while at home and EMS was called. Noted to have brown emesis and around by EMS. Of note, reportedly had a recent hospitalization at [facility] for issues with his kidney function. On arrival to the ED, noted to be in some respiratory distress, placed on BiPAP with initial settings 10/5 and FiO2 100%. He did have a CT of the abdomen and pelvis which demonstrated bibasilar airspace consolidations with air bronchograms and small bilateral effusions. Also, right inguinal hernia containing loop of small bowel and possible partial small bowel obstruction. Normal caliber colon with mild fecal retention. Marked right-sided hydronephrosis at the ureteropelvic junction. A nasogastric tube was inserted in the emergency department for gastric decompression, and a total of 1 L of brown fecal like content was immediately evacuated. On my initial evaluation in the emergency department, patient was in trauma bay 2. He was comatose state and obviously unable to protect his airway. He was on BiPAP with above-mentioned settings. Breathing in the high 30s. SpO2 was reading 80%. Patient obviously needed to be intubated. [employer] was called and rapid sequence intubation was carried out. Initial ventilator settings included AC, respiratory rate 20, tidal volume of 500, FiO2 100%, PEEP of 5. During intubation, patient had a large volume of presumably gastric contents pulling in his posterior oropharynx. Postintubation chest x-ray shows the endotracheal tube in appropriate position above the renan, there is orogastric tube coursing bel ow the diaphragm. There continues to have bibasilar consolidations and probable small pleural effusions. Following intubation, patient became profoundly hypotensive, he is currently receiving a normal saline bolus. He was placed on Levaquin in the emergency department. There is no obvious concern for aspiration pneumonia. CBC: WBC count 11.7, hemoglobin 15.1, hematocrit 45, platelets 299. CMP: Sodium 140, potassium 4.7, chloride 103, serum bicarb 25, BUN 100, creatinine 2.84, glucose 95. Lactic 1.4. LFTs mildly elevated. Pancreatic lipase is 81. Troponin 0.032. Is negative for influenza, RSV, COVID. Unfortunately, we are unable to get a hold of family at this time. Patient is listed as a full code. Progress note dated September 02, 2024: Patient seen in the intensive care unit this morning, no significant overnight events. Patient remains intubated, vent settings AC, rate 24, tidal volume 500, FiO2 50%, and PEEP 10. ABG: CO2 33, O2 259, pH 7.37. CMP: Sodium 146, potassium 3.8, chloride 114, CO2 16, BUN 95, creatinine 2.34, procalcitonin from yesterday 13.1, and cortisol 39.4. Chest x-ray shows endotracheal tube about 5.6 cm above the tracheal renan. Mild worsening patchy bilateral lung infiltrates. Progress note dated September 03, 2024: Patient seen in the ICU this morning, no significant overnight events. Patient remains intubated, vent settings AC, respiratory rate 24, tidal volume 500, FiO2 40%, and PEEP of 10. ABG: O2 125, CO2 34, and pH 7.53. CBC: WBC 20.4, hemoglobin 10.2, hematocrit 30.6, and platelet count 205. CMP: Sodium 146, potassium 2.9, chloride 113, BUN 87, creatinine 1.63, glucose 156, and calcium 7.2. Chest x-ray shows mild scattered increased lung markings, endotracheal tube tip is 4 cm above the renan, and NG tube is in the LUQ of the abdomen. Drips: Levophed 0.02 mcg/kg/min. Tube feeds currently off in anticipation of potential extubation, currently replacing potassium per protocol will recheck at noon and reassess. D5W 40cc.hr Progress note dated September 04, 2024: Patient seen in the intensive care unit this morning with no significant overnight events. Patient has been off propofol since 10 AM yesterday, neurological function remains minimal. He now opens his eyes and responds to vocal commands, but extremities still show no movement. Due to minimal neurological activity TIS SBT postponed for today. Started on Dilaudid 1 mg IVP every 3 hours as needed due to increased pain, will need to monitor patient due to risk of decreased bowel motility. Patient remains intubated, vent settings AC, respiratory rate 24, tidal volume 500, FiO2 40%, and PEEP 5. ABG: pH 7.5, CO2 37, and O2 71. CBC: WBC 16, hemoglobin 10.5, hematocrit 31.2. CMP: Sodium 146, potassium 3.8, chloride 112, BUN 75, creatinine 1.31, glucose 148, and calcium 7.2. Tube feeds are at 50 cc/h with a goal of 75. Patient was put back onto AC at 18:00 yesterday, at that point had been on CPAP for 7 hours. Remains off Levophed. Continues on D5W 45 cc/h. Chest x-ray independently interpreted by me, endotracheal tube tip 2 cm above the renan. Scattered lung markings appear increased from prior. ROS: Cannot obtain at this time Physical exam: GENERAL EXAM: 63-year-old male, intubated to mechanical ventilator, synchronous with set rate HEAD: Normocephalic and atraumatic EYES: Normal reaction of pupils, equal size. NOSE: Clear with pink turbinates. THROAT: No erythema or exudates. NECK: No masses, no JVD. CHEST: No chest wall deformity. Left chest implanted device LUNGS: Equal air entry with diffuse rhonchi and crackles. Intubated mechanical ventilator, peak pressures in the order of 30 to and static airway pressure 27. Minimal endotracheal secretions at this time. Small amounts of presumably gastric content was aspirated from the oropharynx. CVS: S1 and S2 normal with no audible murmur, regular rhythm. No extra heart sounds ABDOMEN: No hepatosplenomegaly, hyperactive bowel sounds, no guarding or rigidity. SPINE: No scoliosis or deformity SKIN: No rashes CENTRAL NERVOUS SYSTEM: Comatose and now off propofol, extremities flaccid no obvious focal deficits. Able to open eyes to his name, but no movement of the e xtremities. Gag reflex present. Grimaces when adjusting ET tube. EXTREMITIES: There is no peripheral edema, clubbing, or cyanosis. Peripheral pulses are intact. Assessment: Acute hypoxemic and hypercapnic respiratory failure secondary to aspiration and bibasilar aspiration pneumonia, patient was intubated by [employer], large-volume presumedly gastric contents pooling in the posterior oropharynx noted during intubation. CT of the abdomen and pelvis, demonstrating bibasilar airspace consolidations and air bronchograms and small bilateral effusions. Possible partial small bowel obstruction, CT of the abdomen and pelvis demonstrating right inguinal hernia containing loops of small bowel and possible partial small bowel obstruction. Normal caliber colon with mild fecal retention. Marked right-sided hydronephrosis at the ureteropelvic junction. No obvious stones reported on CT Acute kidney injury, possibly secondary to above Right-sided hydronephrosis Postintubation hypotension, patient is currently being fluid resuscitated, may require vasopressors to maintain MAP of 65 mmHg or greater History of hypertension History of hyperlipidemia History of Parkinson disease with nerve stimulator Plan: -Ordered CT head non contrast in the setting of patient remaining neurologically unresponsive in the main after being off propofol for greater than 24 hours -Will wait for any DIS SBT until getting the results of CT head -Continue D5W 45 cc/h -Restarted atenolol 25 mg p.o. daily -Tube feeds running at 50, goal of 75. Patient continues on Reglan 10 mg IVP every 6 HR -Discontinue hydrocortisone succinate, continue off Levophed and vasopressin. -Continue Zosyn for aspiration pneumonia (day 4). After 48 hours blood cultures are negative. -Urology on consult for right-sided hydronephrosis and ELIJAH as well as nephrology consulted for ELIJAH. Prognosis guarded. Objective - Vital Signs Vital signs: Vital Signs Temp 98.6 F 09/04/24 08:00 Pulse 75 09/04/24 08:00 Resp 24 09/04/24 08:00 BP 121/60 09/04/24 08:00 Pulse Ox 95 09/04/24 08:00 FiO2 40 09/04/24 08:00 Intake & Output 09/03/24 09/04/24 09/04/24 18:59 06:59 18:59 Intake Total 0967.410 3787 396 Output Total 800 575 255 Balance 604.020 6261 141 Weight 96.5 kg Intake: IV 896 576 96 Dextrose 5% in Water 1, 300 000 ml @ 100 mls/hr IV . [id number] TRIP with Sodium Bicarb (1 Meq/ml) 150 ml Rx#:[id number] Dextrose 5% in Water 1, 360 540 90 000 ml @ 45 mls/hr IV . [id number] [facility] Rx#:[id number] Piperacillin-Tazobactam 3 200 .375 gm In Sodium Chloride 0.9% 100 ml @ 25 mls/hr IVPB Q8H TRIP Rx#: [id number] Pressure Bag 36 36 6 Intake, IV Titration 69.068 Amount Norepinephrine 8 mg In 7.198 Sodium Chloride 0.9% 250 ml @ 0.03 MCG/KG/MIN 5. 266 mls/hr IV .Q24H TRIP Rx#:[id number] propofoL 1,000 mg In 61.870 Empty Bag 1 bag @ 15 MCG/ KG/MIN 8.165 mls/hr IV . [id number] TRIP Rx#:[id number] Tube Feeding 220 540 100 Other 220 660 200 Output: Urine 800 575 255 Other: Voiding Method Indwelling Catheter Indwelling Catheter Indwelling Catheter ABP, PAP, CO, CI - Last Documented Arterial Blood Pressure 157/50 - Labs CBC & Chem 7: 09/04/24 04:45 09/04/24 04:45 Labs: Abnormal Lab Results - Last 24 Hours (Table) 09/03/24 09/03/24 09/03/24 Range/Units 11:26 16:29 17:29 WBC (3.8-10.6) k/uL RBC (4.30-5.90) m/uL Hgb (13.0-17.5) gm/dL Hct (39.0-53.0) % ABG pH (7.35-7.45) ABG pO2 (83-108) mmHg ABG HCO3 (21-25) mmol/L ABG Total CO2 (19-24) mmol/L Hemoglobin (13.0-17.5) gm/dL Sodium 147 H (137-145) mmol/L Potassium 3.1 L (3.5-5.1) mmol/L Chloride (98-107) mmol/L BUN (9-20) mg/dL Creatinine (0.66-1.25) mg/dL Glucose (74-99) mg/dL POC Glucose (mg/dL) 124 H 115 H (70-110) mg/dL Calcium (8.4-10.2) mg/dL 09/04/24 09/04/24 09/04/24 Range/Units 00:18 04:45 04:45 WBC 16.0 H (3.8-10.6) k/uL RBC 3.56 L (4.30-5.90) m/uL Hgb 10.5 L (13.0-17.5) gm/dL Hct 31.2 L (39.0-53.0) % ABG pH (7.35-7.45) ABG pO2 (83-108) mmHg ABG HCO3 (21-25) mmol/L ABG Total CO2 (19-24) mmol/L Hemoglobin (13.0-17.5) gm/dL Sodium 146 H (137-145) mmol/L Potassium (3.5-5.1) mmol/L Chloride 112 H (98-107) mmol/L BUN 75 H (9-20) mg/dL Creatinine 1.31 H (0.66-1.25) mg/dL Glucose 148 H (74-99) mg/dL POC Glucose (mg/dL) 150 H (70-110) mg/dL Calcium 7.2 L (8.4-10.2) mg/dL 09/04/24 Range/Units 06:03 WBC (3.8-10.6) k/uL RBC (4.30-5.90) m/uL Hgb (13.0-17.5) gm/dL Hct (39.0-53.0) % ABG pH 7.50 H (7.35-7.45) ABG pO2 71 L (83-108) mmHg ABG HCO3 29 H (21-25) mmol/L ABG Total CO2 30 H (19-24) mmol/L Hemoglobin 10.6 L (13.0-17.5) gm/dL Sodium (137-145) mmol/L Potassium (3.5-5.1) mmol/L Chloride (98-107) mmol/L BUN (9-20) mg/dL Creatinine (0.66-1.25) mg/dL Glucose (74-99) mg/dL POC Glucose (mg/dL) (70-110) mg/dL Calcium (8.4-10.2) mg/dL Microbiology - Last 24 Hours (Table) 09/01/24 03:20 Blood Culture - Preliminary Blood 09/01/24 01:36 Gram Stain - Final Sputum Sputum Culture - Final Richelle albicans
[2024-09-04 12:26] LABS: Glucose,Whole Blood 120 mg/dL (70-110)
--- NOTE | 2024-09-04 14:06 | CT ---
EXAMINATION TYPE: CT brain wo con CT DLP: 1139.4 mGycm, Automated exposure control for dose reduction was used. DATE OF EXAM: 09/04/2024 1:52 PM COMPARISON: None. CLINICAL INDICATION:Male, 63 years old with history of altered mental status, AMS TECHNIQUE: Brain: Multiple axial CT images of the brain were obtained without IV contrast. . Coronal and sagitta l reformats reviewed. FINDINGS: Brain: Extra-axial spaces: No abnormal extra-axial fluid collections. Ventricular system: Within normal limits Cerebral parenchyma: No acute intraparenchymal hemorrhage or mass effect. The pizano-white junction is well differentiated. Scattered hypoattenuating areas are seen within the periventricular white matte r. Cerebellum: Unremarkable. Mass effect: No evidence of midline shift. Intracranial vasculature: Atherosclerotic calcifications of the intracranial vessels. Soft tissues: Normal. Calvarium/osseous structures: No depressed skull fracture. There are 2 frontal approach stimulator le ads identified terminating in the bilateral basal ganglia. Paranasal sinuses and mastoid air cells: The mastoid air cells are clear. Mild mucosal thickening of the right maxillary sinus. Remaining paranasal sinuses are clear. Visualized orbits: Orbital contents are intact. IMPRESSION: 1. No acute intracranial process. 2. Nonspecific white matter changes, likely secondary to chronic small vessel ischemic disease. 3. Post surgical changes with stimulator leads identified within the bilateral basal ganglia. [facility], , 09/04/2024 2:04 PM
--- NOTE | 2024-09-04 15:45 | P.PN ---
Subjective Patient is seen for follow-up for acute kidney injury. Off of pressors. Serum sodium remains at 146. Currently maintained on D5W and free water with tube feeding was increased yesterday. Urine output at 50 to 100 cc/h. Serum creatinine decreased to 1.3 today. Objective - Vital Signs Vital signs: Vital Signs Temp 98.8 F 09/04/24 13:00 Pulse 73 09/04/24 14:00 Resp 30 H 09/04/24 14:00 BP 108/88 09/04/24 14:00 Pulse Ox 93 L 09/04/24 14:00 FiO2 40 09/04/24 14:00 Intake & Output 09/03/24 09/04/24 09/04/24 18:59 06:59 18:59 Intake Total 2272.548 3455 1459 Output Total 800 575 805 Balance 006.593 9947 654 Weight 96.5 kg 96.5 kg Intake: IV 896 576 484 Dextrose 5% in Water 1, 300 000 ml @ 100 mls/hr IV . [id number] TRIP with Sodium Bicarb (1 Meq/ml) 150 ml Rx#:[id number] Dextrose 5% in Water 1, 360 540 460 000 ml @ 70 mls/hr IV . [id number] [facility] Rx#:[id number] Piperacillin-Tazobactam 3 200 .375 gm In Sodium Chloride 0.9% 100 ml @ 25 mls/hr IVPB Q8H TRIP Rx#: [id number] Pressure Bag 36 36 24 Intake, IV Titration 69.068 Amount Norepinephrine 8 mg In 7.198 Sodium Chloride 0.9% 250 ml @ 0.03 MCG/KG/MIN 5. 266 mls/hr IV .Q24H TRIP Rx#:[id number] propofoL 1,000 mg In 61.870 Empty Bag 1 bag @ 15 MCG/ KG/MIN 8.165 mls/hr IV . [id number] [facility] Rx#:[id number] Tube Feeding 220 540 375 Other 220 660 600 Output: Urine 800 575 805 Other: Voiding Method Indwelling Catheter Indwelling Catheter Indwelling Catheter ABP, PAP, CO, CI - Last Documented Arterial Blood Pressure 133/51 - Exam Patient remains on the vent. Examination of the heart S1 and S2 Examination of the lungs bilateral breath sounds are heard Abdomen is soft nontender Examination of lower extremities shows 1+ edema - Labs CBC & Chem 7: 09/04/24 04:45 09/04/24 04:45 Labs: Abnormal Lab Results - Last 24 Hours (Table) 09/03/24 09/03/24 09/04/24 Range/Units 16:29 17:29 00:18 WBC (3.8-10.6) k/uL RBC (4.30-5.90) m/uL Hgb (13.0-17.5) gm/dL Hct (39.0-53.0) % ABG pH (7.35-7.45) ABG pO2 (83-108) mmHg ABG HCO3 (21-25) mmol/L ABG Total CO2 (19-24) mmol/L Hemoglobin (13.0-17.5) gm/dL Sodium 147 H (137-145) mmol/L Potassium 3.1 L (3.5-5.1) mmol/L Chloride (98-107) mmol/L BUN (9-20) mg/dL Creatinine (0.66-1.25) mg/dL Glucose (74-99) mg/dL POC Glucose (mg/dL) 115 H 150 H (70-110) mg/dL Calcium (8.4-10.2) mg/dL 09/04/24 09/04/24 09/04/24 Range/Units 04:45 04:45 06:03 WBC 16.0 H (3.8-10.6) k/uL RBC 3.56 L (4.30-5.90) m/uL Hgb 10.5 L (13.0-17.5) gm/dL Hct 31.2 L (39.0-53.0) % ABG pH 7.50 H (7.35-7.45) ABG pO2 71 L (83-108) mmHg ABG HCO3 29 H (21-25) mmol/L ABG Total CO2 30 H (19-24) mmol/L Hemoglobin 10.6 L (13.0-17.5) gm/dL Sodium 146 H (137-145) mmol/L Potassium (3.5-5.1) mmol/L Chloride 112 H (98-107) mmol/L BUN 75 H (9-20) mg/dL Creatinine 1.31 H (0.66-1.25) mg/dL Glucose 148 H (74-99) mg/dL POC Glucose (mg/dL) (70-110) mg/dL Calcium 7.2 L (8.4-10.2) mg/dL 09/04/24 Range/Units 12:23 WBC (3.8-10.6) k/uL RBC (4.30-5.90) m/uL Hgb (13.0-17.5) gm/dL Hct (39.0-53.0) % ABG pH (7.35-7.45) ABG pO2 (83-108) mmHg ABG HCO3 (21-25) mmol/L ABG Total CO2 (19-24) mmol/L Hemoglobin (13.0-17.5) gm/dL Sodium (137-145) mmol/L Potassium (3.5-5.1) mmol/L Chloride (98-107) mmol/L BUN (9-20) mg/dL Creatinine (0.66-1.25) mg/dL Glucose (74-99) mg/dL POC Glucose (mg/dL) 120 H (70-110) mg/dL Calcium (8.4-10.2) mg/dL Microbiology - Last 24 Hours (Table) 09/01/24 03:20 Blood Culture - Preliminary Blood Assessment and Plan Assessment: 1. Acute kidney injury ATN currently nonoliguric secondary to sepsis and hypotension, improving. Solitary functioning kidney which is the left kidney. Patient has chronic hydronephrosis of right kidney with possibly minimal function. 2. Right hydronephrosis noted. This appears to be chronic. Urology on cons ult. 3. Acute hypoxic respiratory failure currently on on the ventilator. 4. Aspiration pneumonia 5. History of Parkinson's disease 6. Metabolic acidosis secondary to acute kidney injury 7. Hypokalemia associated with IV bicarb use Plan: Continue with free water with tube feedings Increase D5W Continue with antibiotics Repeat labs in a.m.
[2024-09-04 17:50] LABS: Glucose,Whole Blood 125 mg/dL (70-110)
[2024-09-04] MEDS: hydrALAZINE HCL 20 MG/ML 1 ML VIAL IVP PRN (18:15)
[2024-09-05 00:18] LABS: Glucose,Whole Blood 137 mg/dL (70-110)
--- NOTE | 2024-09-05 04:33 | P.PN ---
Subjective This is a pleasant 63 years old male who presents initially last night for flulike symptoms and found to be hypoxic. Also there was concerns of GI bleed On admission he was in respiratory distress and he has to be intubated and placed on mechanical ventilation Currently he is in the ICU and he cannot provide information which was obtained from the staff and medical records. Patient currently is afebrile, blood pressure is stable after he started on pressors, patient was hypotensive in the emergency room. Blood pressure now 105/63 Labs reviewed showing WBC 11.2, creatinine 2.7, calcium was low 6.2 Troponin x 2 are negative at 0.03 and 0.02 Urine analysis is currently concentrated sample Chest x-ray showing bibasilar infiltrates which is also seen on the CT of the abdomen and pelvis. Patient has marked right hydronephrosis with apparent obstruction at the right renal pelvis, no obvious cause. Hemoglobin is normal at 13.2 09/02 Patient remains in the ICU intubated and sedated. He is requiring FiO2 of 50% He is developing fever of 101.1, blood pressure 105/63 but requiring pressors of Levophed WBC increased significantly to 26,000, creatinine improving to 2.7 down to 2.3. Patient currently remains on Zosyn and pressors. Neurology team evaluated the patient for right hydronephrosis and no surgical intervention warranted Acute kidney injury is improving. 09/03 Patient remains in the ICU intubated and sedated This morning he was doing well, his FiO2 was lowered. He still has high PEEP of 10 However he came off the Levophed, propofol was discontinued and attempted waking up We will check to see if he will follow command He remains on Zosyn for his aspiration pneumonia Hydrocortisone was added yesterday. Cortisol level when checked was 39.4. 09/04 Patient remains in the ICU intubated and sedated However remains on Zosyn for his aspiration pneumonia. Looks like patient is improving and Levophed was going to be discontinued today His numbers is also improvement with leukocytosis down to 16,000 and creatinine down to 1.31 hemoglobin stable at 10.5 General Surgery did monitoring the patient without need for any surgical intervention for his partial small bowel obstruction and right inguinal hernia with loops of small bowel Objective - Vital Signs Vital signs: Vital Signs Temp 98.8 F 09/04/24 13:00 Pulse 73 09/04/24 14:00 Resp 30 H 09/04/24 14:00 BP 108/88 09/04/24 14:00 Pulse Ox 93 L 09/04/24 14:00 FiO2 40 09/04/24 14:00 Intake & Output 09/03/24 09/04/24 09/04/24 18:59 06:59 18:59 Intake Total 0117.476 3310 1459 Output Total 800 575 805 Balance 474.406 4911 654 Weight 96.5 kg 96.5 kg Intake: IV 896 576 484 Dextrose 5% in Water 1, 300 000 ml @ 100 mls/hr IV . [id number] TRIP with Sodium Bicarb (1 Meq/ml) 150 ml Rx#:[id number] Dextrose 5% in Water 1, 360 540 460 000 ml @ 70 mls/hr IV . [id number] TRIP Rx#:[id number] Piperacillin-Tazobactam 3 200 .375 gm In Sodium Chloride 0.9% 100 ml @ 25 mls/hr IVPB Q8H [facility] Rx#: [id number] Pressure Bag 36 36 24 Intake, IV Titration 69.068 Amount Norepinephrine 8 mg In 7.198 Sodium Chloride 0.9% 250 ml @ 0.03 MCG/KG/MIN 5. 266 mls/hr IV .Q24H [facility] Rx#:[id number] propofoL 1,000 mg In 61.870 Empty Bag 1 bag @ 15 MCG/ KG/MIN 8.165 mls/hr IV . [id number] [facility] Rx#:[id number] Tube Feeding 220 540 375 Other 220 660 600 Output: Urine 800 575 805 Other: Voiding Method Indwelling Catheter Indwelling Catheter Indwelling Catheter ABP, PAP, CO, CI - Last Documented Arterial Blood Pressure 133/51 - Exam GENERAL: T intubated and sedated HEENT: Pupils are round and equally reacting to light. EOMI. No scleral icterus. No conjunctival pallor. Normocephalic, atraumatic. No pharyngeal erythema. No thyromegaly. CARDIOVASCULAR: S1 and S2 present. No murmurs, rubs, or gallops. PULMONARY: Chest is clear to auscultation, no wheezing , no crackles. ABDOMEN: Soft, nontender, nondistended, normoactive bowel sounds. No palpable organomegaly. MUSCULOSKELETAL: No joint swelling or deformity. EXTREMITIES: No cyanosis, clubbing, or pedal edema. NEUROLOGICAL: Gross neurological examination did not reveal any focal deficits. SKIN: No rashes. no petechiae. - Labs CBC & Chem 7: 09/04/24 04:45 09/04/24 04:45 Labs: Abnormal Lab Results - Last 24 Hours (Table) 09/03/24 09/03/24 09/04/24 Range/Units 16:29 17:29 00:18 WBC (3.8-10.6) k/uL RBC (4.30-5.90) m/uL Hgb (13.0-17.5) gm/dL Hct (39.0-53.0) % ABG pH (7.35-7.45) ABG pO2 (83-108) mmHg ABG HCO3 (21-25) mmol/L ABG Total CO2 (19-24) mmol/L Hemoglobin (13.0-17.5) gm/dL Sodium 147 H (137-145) mmol/L Potassium 3.1 L (3.5-5.1) mmol/L Chloride (98-107) mmol/L BUN (9-20) mg/dL Creatinine (0.66-1.25) mg/dL Glucose (74-99) mg/dL POC Glucose (mg/dL) 115 H 150 H (70-110) mg/dL Calcium (8.4-10.2) mg/dL 09/04/24 09/04/24 09/04/24 Range/Units 04:45 04:45 06:03 WBC 16.0 H (3.8-10.6) k/uL RBC 3.56 L (4.30-5.90) m/uL Hgb 10.5 L (13.0-17.5) gm/dL Hct 31.2 L (39.0-53.0) % ABG pH 7.50 H (7.35-7.45) ABG pO2 71 L (83-108) mmHg ABG HCO3 29 H (21-25) mmol/L ABG Total CO2 30 H (19-24) mmol/L Hemoglobin 10.6 L (13.0-17.5) gm/dL Sodium 146 H (137-145) mmol/L Potassium (3.5-5.1) mmol/L Chloride 112 H (98-107) mmol/L BUN 75 H (9-20) mg/dL Creatinine 1.31 H (0.66-1.25) mg/dL Glucose 148 H (74-99) mg/dL POC Glucose (mg/dL) (70-110) mg/dL Calcium 7.2 L (8.4-10.2) mg/dL 09/04/24 Range/Units 12:23 WBC (3.8-10.6) k/uL RBC (4.30-5.90) m/uL Hgb (13.0-17.5) gm/dL Hct (39.0-53.0) % ABG pH (7.35-7.45) ABG pO2 (83-108) mmHg ABG HCO3 (21-25) mmol/L ABG Total CO2 (19-24) mmol/L Hemoglobin (13.0-17.5) gm/dL Sodium (137-145) mmol/L Potassium (3.5-5.1) mmol/L Chloride (98-107) mmol/L BUN (9-20) mg/dL Creatinine (0.66-1.25) mg/dL Glucose (74-99) mg/dL POC Glucose (mg/dL) 120 H (70-110) mg/dL Calcium (8.4-10.2) mg/dL Microbiology - Last 24 Hours (Table) 09/01/24 03:20 Blood Culture - Preliminary Blood Assessment and Plan Assessment: Acute hypoxic respiratory failure requiring intubation and mechanical ventilation Bibasilar pneumonia suspicious for aspiration pneumonia s partial small bowel obstruction and right inguinal hernia with loops of small bowel septic shock secondary to above, resolved Acute kidney injury, improving Marked right hydronephrosis, evaluated by urologist History of Parkinson disease Plan: Continue in the ICU with pulmonary/critical care team consult Continue with mechanical ventilation as per ICU team. Patient started on Zosyn. Follow-up culture results Discontinue Levophed Urology team consulted for his right hydronephrosis. Nephrology team consult General Surgery consulted for concerns for partial small bowel obstruction with no need for surgical intervention currently GI prophylaxis: Protonix, continue with IV Protonix DVT prophylaxis: subcutaneous heparin Prognosis is guarded
[2024-09-05 05:18] LABS: HCT 32.5 % (39.0-53.0); HGB 10.6 gm/dL (13.0-17.5); MCH 28.6 pg (25.0-35.0); MCHC 32.5 g/dL (31.0-37.0); MCV 88.1 fL (80.0-100.0); Mean Platelet Volume 8.9; Platelet Count 178 k/uL (150-450); RBC 3.69 m/uL (4.30-5.90); RDW 14.1 % (11.5-15.5); WBC 17.8 k/uL (3.8-10.6)
[2024-09-05 05:33] LABS: African American GFR (CKD) 81 (>60 ml/min/1.73 sqM); Anion Gap 6 mmol/L; Blood Urea Nitrogen 70 mg/dL (9-20); Calcium 6.7 mg/dL (8.4-10.2); Carbon Dioxide 28 mmol/L (22-30); Chloride 109 mmol/L (98-107); Glucose 163 mg/dL (74-99); Non-African American GFR(CKD) 70 (>60 ml/min/1.73 sqM); Potassium 3.7 mmol/L (3.5-5.1); Sodium 143 mmol/L (137-145)
[2024-09-05] MEDS ORDERED: Potassium Replacement Protocol 1 EACH MISC MISCELLANE PRN (05:44)
[2024-09-05 05:49] LABS: Glucose,Whole Blood 158 mg/dL (70-110)
[2024-09-05 06:16] LABS: ABG HCO3 28 mmol/L (21-25); ABG Oxygen Saturation 96.4 % (94-97); ABG PCO2 37 mmHg (35-45); ABG PO2 78 mmHg (83-108); ABG TCO2 30 mmol/L (19-24)
[2024-09-05] MEDS: POTASSIUM BICARBONATE/CIT AC 20 MEQ TABLET.EFF NG-TUBE SCH (06:16)
[2024-09-05 06:17] LABS: Allen Test Performed? No
--- NOTE | 2024-09-05 06:57 | XR ---
EXAMINATION TYPE: XR chest 1V portable DATE OF EXAM: 09/05/2024 CLINICAL HISTORY: Difficulty breathing and CHF progress study. TECHNIQUE: Single AP portable semiupright view of the chest is obtained. COMPARISON: Chest x-ray from one day earlier and older studies. FINDINGS: Stable endotracheal and orogastric tubes. Persistent multifocal airspace opacities with relative sparing of left upper lobe. Small left pleural effusion not excluded. Cardiac silhouette size stable and within normal limits. Multilevel spurring in the lumbar spine redemonstrated. Left neck stimulator device again seen. IMPRESSION: Persistent bilateral multifocal acute infiltrates and/or edema. No significant change fro m one day earlier. [facility], , 09/05/2024 6:54 AM
--- NOTE | 2024-09-05 09:04 | P.PN ---
Subjective Patient is seen in follow-up for acute kidney injury. Renal function improving. Remains off vasopressors. Sodium level 143. Receiving tube feeds with water flushes and also on D5W. Vital signs are stable. General: Resting in bed. HEENT: Intubated. LUNGS: Scattered rhonchi. HEART: Rate and Rhythm are regular. ABDOMEN: No distention. EXTREMITITES: Trace edema. Objective - Vital Signs Vital signs: Vital Signs Temp 98.1 F 09/05/24 04:00 Pulse 73 09/05/24 08:17 Resp 23 09/05/24 06:00 BP 133/68 09/04/24 19:00 Pulse Ox 96 09/05/24 06:00 FiO2 40 09/05/24 08:02 Intake & Output 09/04/24 09/05/24 09/05/24 18:59 06:59 18:59 Intake Total 2151 2599 Output Total 1105 990 Balance 1046 1609 Weight 96.5 kg 98 kg Intake: IV 776 929 Dextrose 5% in Water 1, 740 890 000 ml @ 70 mls/hr IV . [id number] [facility] Rx#:[id number] Pressure Bag 36 39 Tube Feeding 575 870 Other 800 800 Output: Urine 1105 990 Other: Voiding Method Indwelling Catheter Indwelling Catheter ABP, PAP, CO, CI - Last Documented Arterial Blood Pressure 130/51 - Labs CBC & Chem 7: 09/05/24 05:00 09/05/24 05:00 Labs: Abnormal Lab Results - Last 24 Hours (Table) 09/04/24 09/04/24 09/05/24 Range/Units 12:23 17:49 00:16 WBC (3.8-10.6) k/uL RBC (4.30-5.90) m/uL Hgb (13.0-17.5) gm/dL Hct (39.0-53.0) % ABG pH (7.35-7.45) ABG pO2 (83-108) mmHg ABG HCO3 (21-25) mmol/L ABG Total CO2 (19-24) mmol/L Hemoglobin (13.0-17.5) gm/dL Chloride (98-107) mmol/L BUN (9-20) mg/dL Glucose (74-99) mg/dL POC Glucose (mg/dL) 120 H 125 H 137 H (70-110) mg/dL Calcium (8.4-10.2) mg/dL 09/05/24 09/05/24 09/05/24 Range/Units 05:00 05:00 05:47 WBC 17.8 H (3.8-10.6) k/uL RBC 3.69 L (4.30-5.90) m/uL Hgb 10.6 L (13.0-17.5) gm/dL Hct 32.5 L (39.0-53.0) % ABG pH (7.35-7.45) ABG pO2 (83-108) mmHg ABG HCO3 (21-25) mmol/L ABG Total CO2 (19-24) mmol/L Hemoglobin (13.0-17.5) gm/dL Chloride 109 H (98-107) mmol/L BUN 70 H (9-20) mg/dL Glucose 163 H (74-99) mg/dL POC Glucose (mg/dL) 158 H (70-110) mg/dL Calcium 6.7 L (8.4-10.2) mg/dL 09/05/24 Range/Units 06:11 WBC (3.8-10.6) k/uL RBC (4.30-5.90) m/uL Hgb (13.0-17.5) gm/dL Hct (39.0-53.0) % ABG pH 7.50 H (7.35-7.45) ABG pO2 78 L (83-108) mmHg ABG HCO3 28 H (21-25) mmol/L ABG Total CO2 30 H (19-24) mmol/L Hemoglobin 11.1 L (13.0-17.5) gm/dL Chloride (98-107) mmol/L BUN (9-20) mg/dL Glucose (74-99) mg/dL POC Glucose (mg/dL) (70-110) mg/dL Calcium (8.4-10.2) mg/dL Microbiology - Last 24 Hours (Table) 09/01/24 03:20 Blood Culture - Preliminary Blood Assessment and Plan Plan: Assessment: 1. Acute kidney injury secondary to ATN secondary to septic shock. Creatinine 2.84 on admission and is 1.1 today. Nonoliguric. 2. Right hydronephrosis. Chronic kidney injury. Urology following. 3. Acute hypoxic respiratory failure. Intubated. 4. Pneumonia on antibiotics. 5. Hypernatremia from lack of oral water intake and free water losses. Better. Plan: Maintain tube feeds. Maintain free water flushes 200 cc every 3 hours. Stop D5W. Potassium replaced. Avoid nephrotoxins. Continue to monitor renal function and urine output.
--- NOTE | 2024-09-05 11:41 | P.PN ---
Subjective Patient is a 63-year-old male with past medical history significant for Parkinson disease, with nerve brain stimulator hypertension, hyperlipidemia. According to the ER note, patient has had a couple days of nausea, vomiting, and shortness of breath. Found to be increasingly lethargic while at home and EMS was called. Noted to have brown emesis and around by EMS. Of note, reportedly had a recent hospitalization at [facility] for issues with his kidney function. On arrival to the ED, noted to be in some respiratory distress, placed on BiPAP with initial settings 10/5 and FiO2 100%. He did have a CT of the abdomen and pelvis which demonstrated bibasilar airspace consolidations with air bronchograms and small bilateral effusions. Also, right inguinal hernia containing loop of small bowel and possible partial small bowel obstruction. Normal caliber colon with mild fecal retention. Marked right-sided hydronephrosis at the ureteropelvic junction. A nasogastric tube was inserted in the emergency department for gastric decompression, and a total of 1 L of brown fecal like content was immediately evacuated. On my initial evaluation in the emergency department, patient was in trauma bay 2. He was comatose state and obviously unable to protect his airway. He was on BiPAP with above-mentioned settings. Breathing in the high 30s. SpO2 was reading 80%. Patient obviously needed to be intubated. [facility] was called and rapid sequence intubation was carried out. Initial ventilator settings included AC, respiratory rate 20, tidal volume of 500, FiO2 100%, PEEP of 5. During intubation, patient had a large volume of presumably gastric contents pulling in his posterior oropharynx. Postintubation chest x-ray shows the endotracheal tube in appropriate position above the renan, there is orogastric tube coursing bel ow the diaphragm. There continues to have bibasilar consolidations and probable small pleural effusions. Following intubation, patient became profoundly hypotensive, he is currently receiving a normal saline bolus. He was placed on Levaquin in the emergency department. There is no obvious concern for aspiration pneumonia. CBC: WBC count 11.7, hemoglobin 15.1, hematocrit 45, platelets 299. CMP: Sodium 140, potassium 4.7, chloride 103, serum bicarb 25, BUN 100, creatinine 2.84, glucose 95. Lactic 1.4. LFTs mildly elevated. Pancreatic lipase is 81. Troponin 0.032. Is negative for influenza, RSV, COVID. Unfortunately, we are unable to get a hold of family at this time. Patient is listed as a full code. Progress note dated September 02, 2024: Patient seen in the intensive care unit this morning, no significant overnight events. Patient remains intubated, vent settings AC, rate 24, tidal volume 500, FiO2 50%, and PEEP 10. ABG: CO2 33, O2 259, pH 7.37. CMP: Sodium 146, potassium 3.8, chloride 114, CO2 16, BUN 95, creatinine 2.34, procalcitonin from yesterday 13.1, and cortisol 39.4. Chest x-ray shows endotracheal tube about 5.6 cm above the tracheal renan. Mild worsening patchy bilateral lung infiltrates. Progress note dated September 03, 2024: Patient seen in the ICU this morning, no significant overnight events. Patient remains intubated, vent settings AC, respiratory rate 24, tidal volume 500, FiO2 40%, and PEEP of 10. ABG: O2 125, CO2 34, and pH 7.53. CBC: WBC 20.4, hemoglobin 10.2, hematocrit 30.6, and platelet count 205. CMP: Sodium 146, potassium 2.9, chloride 113, BUN 87, creatinine 1.63, glucose 156, and calcium 7.2. Chest x-ray shows mild scattered increased lung markings, endotracheal tube tip is 4 cm above the renan, and NG tube is in the LUQ of the abdomen. Drips: Levophed 0.02 mcg/kg/min. Tube feeds currently off in anticipation of potential extubation, currently replacing potassium per protocol will recheck at noon and reassess. D5W 40cc.hr Progress note dated September 04, 2024: Patient seen in the intensive care unit this morning with no significant overnight events. Patient has been off propofol since 10 AM yesterday, neurological function remains minimal. He now opens his eyes and responds to vocal commands, but extremities still show no movement. Due to minimal neurological activity TIS SBT postponed for today. Started on Dilaudid 1 mg IVP every 3 hours as needed due to increased pain, will need to monitor patient due to risk of decreased bowel motility. Patient remains intubated, vent settings AC, respiratory rate 24, tidal volume 500, FiO2 40%, and PEEP 5. ABG: pH 7.5, CO2 37, and O2 71. CBC: WBC 16, hemoglobin 10.5, hematocrit 31.2. CMP: Sodium 146, potassium 3.8, chloride 112, BUN 75, creatinine 1.31, glucose 148, and calcium 7.2. Tube feeds are at 50 cc/h with a goal of 75. Patient was put back onto AC at 18:00 yesterday, at that point had been on CPAP for 7 hours. Remains off Levophed. Continues on D5W 45 cc/h. Chest x-ray independently interpreted by me, endotracheal tube tip 2 cm above the renan. Scattered lung markings appear increased from prior. Progress note dated September 05, 2024: Patient is seen in the intensive care unit this morning with no significant overnight events Patient continues to be off sedation with no meaningful change in neurological function. Patient was taken for noncontrast brain CT yesterday which showed no acute intracranial process. Vent settings: AC, rr 24, vt 500, fio2 40%, peep 5.. ABG: pH 7.5, pCO2 37, and O2 78. CBC: WBC 17.8, hemoglobin 10.6, and platelet count 178. CMP: Sodium 143, potassium 3.7, chloride 109, BUN 70, creatinine 1.1, and calcium 6.7. Chest x-ray from today shows persistent bilateral multifocal acute infiltrates and/or edema. No significant change from 1 day earlier. Vital hp running at 75 ml/hr. ROS: Cannot obtain at this time Physical exam: GENERAL EXAM: 63-year-old male, intubated to mechanical ventilator, synchronous with set rate HEAD: Normocephalic and atraumatic EYES: Normal reaction of pupils, equal size. NOSE: Clear with pink turbinates. THROAT: No erythema or exudates. NECK: No masses, no JVD. CHEST: No chest wall deformity. Left chest implanted device LUNGS: Equal air entry with diffuse rhonchi and crackles. Intubated mechanical ventilator, peak pressures in the order of 30 to and static airway pressure 27. Minimal endotracheal secretions at this time. Small amounts of presumably gastric content was aspirated from the oropharynx. CVS: S1 and S2 normal with no audible murmur, regular rhythm. No extra heart sounds ABDOMEN: No hepatosplenomegaly, hyperactive bowel sounds, no guarding or rigidity. SPINE: No scoliosis or deformity SKIN: No rashes CENTRAL NERVOUS SYSTEM: Comatose and now off propofol, extremities flaccid no obvious focal deficits. Able to open eyes to his name, but no movement of the extremities. Gag reflex present. Grimaces when adjusting ET tube. EXTREMITIES: There is no peripheral edema, clubbing, or cyanosis. Peripheral pulses are intact. Assessment: Acute hypoxemic and hypercapnic respiratory failure secondary to aspiration and bibasilar aspiration pneumonia, patient was intubated by [facility], large-volume presumedly gastric contents pooling in the posterior oropharynx noted during intubation. CT of the abdomen and pelvis, demonstrating bibasilar airspace consolidations and air bronchograms and small bilateral effusions. Possible partial small bowel obstruction, CT of the abdomen and pelvis demonstrating right inguinal hernia containing loops of small bowel and possible partial small bowel obstruction. Normal caliber colon with mild fecal retention. Marked right-sided hydronephrosis at the ureteropelvic junction. No obvious stones reported on CT Acute kidney injury, possibly secondary to above Right-sided hydronephrosis Postintubation hypotension, patient is currently being fluid resuscitated, may require vasopressors to maintain MAP of 65 mmHg or greater History of hypertension History of hyperlipidemia History of Parkinson disease with nerve stimulator Plan: -Consulted neurology for decreased neurologic activity after 48 hours off of sedation, brain mri may not be possible due to parkinson neuro stim. -Will wait for any DIS SBT until evaluation by neuro -Maintain free water flushes 200 cc every 3 hours. -Reduced D5W 10 cc/h -Continue atenolol 25 mg p.o. daily -Tube feeds running at 75 which is goal. Patient continues on Reglan 10 mg IVP every 6 HR -Hydrocortisone succinate at every 12 hours, will likely discontinue tomorrow, continue off Levophed and vasopressin. -Continue Zosyn for aspiration pneumonia (day 5), will complete 7-day course. After 72 hours blood cultures are negative. -Urology on consult for right-sided hydronephrosis and ELIJAH as well as nephrology consulted for ELIJAH. Prognosis guarded. Objective - Vital Signs Vital signs: Vital Signs Temp 98.1 F 09/05/24 04:00 Pulse 80 09/05/24 06:00 Resp 23 09/05/24 06:00 BP 133/68 09/04/24 19:00 Pulse Ox 96 09/05/24 06:00 FiO2 40 09/05/24 04:26 Intake & Output 09/04/24 09/05/24 09/05/24 18:59 06:59 18:59 Intake Total 2151 2599 Output Total 1105 990 Balance 1046 1609 Weight 96.5 kg 98 kg Intake: IV 776 929 Dextrose 5% in Water 1, 740 890 000 ml @ 70 mls/hr IV . [id number] [facility] Rx#:[id number] Pressure Bag 36 39 Tube Feeding 575 870 Other 800 800 Output: Urine 1105 990 Other: Voiding Method Indwelling Catheter Indwelling Catheter ABP, PAP, CO, CI - Last Documented Arterial Blood Pressure 130/51 - Labs CBC & Chem 7: 09/05/24 05:00 09/05/24 05:00 Labs: Abnormal Lab Results - Last 24 Hours (Table) 09/04/24 09/04/24 09/05/24 Range/Units 12:23 17:49 00:16 WBC (3.8-10.6) k/uL RBC (4.30-5.90) m/uL Hgb (13.0-17.5) gm/dL Hct (39.0-53.0) % ABG pH (7.35-7.45) ABG pO2 (83-108) mmHg ABG HCO3 (21-25) mmol/L ABG Total CO2 (19-24) mmol/L Hemoglobin (13.0-17.5) gm/dL Chloride (98-107) mmol/L BUN (9-20) mg/dL Glucose (74-99) mg/dL POC Glucose (mg/dL) 120 H 125 H 137 H (70-110) mg/dL Calcium (8.4-10.2) mg/dL 09/05/24 09/05/24 09/05/24 Range/Units 05:00 05:00 05:47 WBC 17.8 H (3.8-10.6) k/uL RBC 3.69 L (4.30-5.90) m/uL Hgb 10.6 L (13.0-17.5) gm/dL Hct 32.5 L (39.0-53.0) % ABG pH (7.35-7.45) ABG pO2 (83-108) mmHg ABG HCO3 (21-25) mmol/L ABG Total CO2 (19-24) mmol/L Hemoglobin (13.0-17.5) gm/dL Chloride 109 H (98-107) mmol/L BUN 70 H (9-20) mg/dL Glucose 163 H (74-99) mg/dL POC Glucose (mg/dL) 158 H (70-110) mg/dL Calcium 6.7 L (8.4-10.2) mg/dL 09/05/24 Range/Units 06:11 WBC (3.8-10.6) k/uL RBC (4.30-5.90) m/uL Hgb (13.0-17.5) gm/dL Hct (39.0-53.0) % ABG pH 7.50 H (7.35-7.45) ABG pO2 78 L (83-108) mmHg ABG HCO3 28 H (21-25) mmol/L ABG Total CO2 30 H (19-24) mmol/L Hemoglobin 11.1 L (13.0-17.5) gm/dL Chloride (98-107) mmol/L BUN (9-20) mg/dL Glucose (74-99) mg/dL POC Glucose (mg/dL) (70-110) mg/dL Calcium (8.4-10.2) mg/dL Microbiology - Last 24 Hours (Table) 09/01/24 03:20 Blood Culture - Preliminary Blood
[2024-09-05 11:42] LABS: Glucose,Whole Blood 143 mg/dL (70-110)
--- NOTE | 2024-09-05 13:32 | P.CNNES ---
History of Present Illness Consult date: 09/05/24 Requesting physician: Bernadine Alva Reason for Consult: decreased neurological function, off sedation for 48 hours History of Present Illness: This is a 63-year-old gentleman with history of Parkinson disease status post d eep brain stimulation who presented emergency department because of nausea vomiting and breathing issues. Neurology is consulted because of altered mental status and patient has been off sedation for 48 hours. History is obtained from medical record. Seems that the patient had some brown emesis that is noted by the ED note and his respiratory was 56 and his upper airway sounded coarse. Patient oxygen saturation was 74%. During this hospital stay patient hadFever cytosis and per the ICU team they felt possibly aspiration pneumonia. Patient is intubated on the ventilator. He has been off sedation but no improvement in his mentation. Some of the workup during this hospital visit consisted of: As Stated earlier on initial presentation patient had low-grade fever on the first few days in the hospital stay and the Tmax was 102.1 and he had been afebrile since September 02, 2024. Oxygen during hospital admission was as low as 75% White blood cell is trending down initially it was 11.7 got as high as 26,000 and currently is 17.8. AST is 91 ALT 14 On initial presentation patient had acute kidney in injury which resolved was 2.8 for now it is 1.10 CT head is reported as no acute intracranial process. Nonspecific white matter changes, likely secondary to chronic small vessel ischemic disease. Postsurgical changes with stimulator leads identified within the bilateral basal ganglia. I personally reviewed the CT and agree with the report. Review of Systems Limited but as per HPI. Past Medical History Past Medical History: Hypertension Additional Past Medical History / Comment(s): parkinsons History of Any Multi-Drug Resistant Organisms: None Reported Past Surgical History: No Surgical Hx Reported Additional Past Surgical History / Comment(s): deep brain stimulator Past Anesthesia/Blood Transfusion Reactions: No Reported Reaction Past Psychological History: No Psychological Hx Reported Smoking Status: Former smoker Past Alcohol Use History: Occasional Past Drug Use History: Marijuana Medications and Allergies Home Medications Medication Instructions Recorded Confirmed Type Atorvastatin [Lipitor] 20 mg PO HS@1800 08/31/24 08/31/24 History Carbidopa-Levodopa 25-100 mg 1 tab PO TID@0600,1400,1800 08/31/24 08/31/24 History [Sinemet 25-100] atenoloL [Tenormin] 25 mg PO DAILY@0600 08/31/24 08/31/24 History Allergies Allergy/AdvReac Type Severity Reaction Status Date / Time No Known Allergies Allergy Verified 08/31/24 20:47 Physical Examination - Vital Signs Vital Signs: Vital Signs Temp Pulse Resp BP Pulse Ox FiO2 09/05/24 12:06 81 09/05/24 12:00 98.8 F 84 27 H 96 40 09/05/24 11:54 78 40 09/05/24 11:00 85 24 95 09/05/24 10:00 85 26 H 96 09/05/24 09:00 85 24 95 09/05/24 08:17 73 09/05/24 08:04 70 09/05/24 08:02 40 09/05/24 08:00 98.5 F 83 27 H 96 40 09/05/24 07:00 87 26 H 94 L 09/05/24 06:00 80 23 96 09/05/24 05:00 72 27 H 94 L 09/05/24 04:33 74 23 09/05/24 04:26 40 09/05/24 04:25 69 23 09/05/24 04:00 98.1 F 70 22 94 L 40 09/05/24 03:46 40 09/05/24 03:45 40 09/05/24 03:00 60 24 93 L 09/05/24 02:00 65 25 H 95 09/05/24 01:00 79 25 H 91 L 09/05/24 00:38 86 26 H 09/05/24 00:29 40 09/05/24 00:28 77 26 H 09/05/24 00:00 94 19 95 09/04/24 23:27 40 09/04/24 23:26 40 09/04/24 23:00 70 27 H 95 09/04/24 22:00 76 23 94 L 09/04/24 21:00 84 24 94 L 09/04/24 20:27 88 27 H 09/04/24 20:20 40 09/04/24 20:19 87 32 H 09/04/24 20:00 98.9 F 91 31 H 94 L 40 09/04/24 19:00 96 31 H 133/68 94 L 40 09/04/24 18:00 67 28 H 160/79 95 40 09/04/24 17:00 61 25 H 126/68 97 40 09/04/24 16:41 61 09/04/24 16:37 40 09/04/24 16:34 59 L 09/04/24 16:00 98.8 F 60 27 H 114/62 95 40 09/04/24 15:00 65 23 141/73 94 L 09/04/24 14:00 73 30 H 108/88 93 L 40 Intake and Output 09/04/24 09/05/24 09/05/24 22:59 06:59 14:59 Intake Total 1404 1887 1030 Output Total 490 800 390 Balance 914 1087 640 Intake: IV 564 657 255 Dextrose 5% in Water 1, 540 630 140 000 ml @ 10 mls/hr IV . Q24H [facility] Rx#:[id number] Piperacillin-Tazobactam 3 100 .375 gm In Sodium Chloride 0.9% 100 ml @ 25 mls/hr IVPB Q8H [facility] Rx#: [id number] Pressure Bag 24 27 15 Tube Feeding 440 630 375 Other 400 600 400 Output: Urine 490 800 390 Other: Voiding Method Indwelling Catheter Indwelling Catheter Indwelling Catheter Weight 96.5 kg 98 kg ABP, PAP, CO, CI - Last 8 Hours Arterial Blood Pressure 149/60 Arterial Blood Pressure 114/50 Arterial Blood Pressure 148/61 Arterial Blood Pressure 116/51 Arterial Blood Pressure 150/60 Arterial Blood Pressure 121/52 Arterial Blood Pressure 130/51 General: Lying in bed and does not appear in acute distress. Lung: Intubated on a ventilator. Neuro: Limited. Patient is comatose. Patient is not verbalizing or attempted to follow commands With suctioning patient briefly opens his eyes. The pupils are round about 4 mm and reactive to light bilaterally. No facial weakness. With suctioning he does have a low-grade cough gag. With painful stimuli he does not withdraw to painful stimuli Tone is decreased throughout. Plantars: Mute bilaterally Results - Laboratory Findings CBC and BMP: 09/05/24 05:00 09/05/24 05:00 Abnormal Lab Findings: Abnormal Labs 08/31/24 08/31/24 08/31/24 19:09 19:09 19:09 WBC 11.7 H RBC Hgb Hct Neutrophils # 9.9 H Lymphocytes # 0.8 L PT 17.3 H INR 1.7 H ABG pH ABG pCO2 ABG pO2 ABG HCO3 ABG Total CO2 ABG O2 Saturation Hemoglobin Sodium Potassium Chloride Carbon Dioxide BUN 100 H Creatinine 2.84 H Glucose POC Glucose (mg/dL) Plasma Lactic Acid Maciel Calcium 7.5 L Total Bilirubin 2.0 H AST 91 H Alkaline Phosphatase 34 L Total Protein 5.1 L Albumin 2.6 L Procalcitonin Cortisol Urine Protein Urine Blood Urine Bilirubin Urine WBC Amorphous Sediment Urine Bacteria Hyaline Casts Urine Mucus 08/31/24 08/31/24 09/01/24 19:09 21:04 01:15 WBC RBC Hgb Hct Neutrophils # Lymphocytes # PT INR ABG pH ABG pCO2 ABG pO2 ABG HCO3 ABG Total CO2 ABG O2 Saturation Hemoglobin Sodium Potassium Chloride Carbon Dioxide BUN Creatinine Glucose POC Glucose (mg/dL) Plasma Lactic Acid Maciel 2.7 H* Calcium Total Bilirubin AST Alkaline Phosphatase Total Protein Albumin Procalcitonin Cortisol Urine Protein Trace H 1+ H Urine Blood Moderate H Urine Bilirubin 1+ H 1+ H Urine WBC 13 H Amorphous Sediment Occasional H Urine Bacteria Rare H Hyaline Casts 317 H Urine Mucus Occasional H 09/01/24 09/01/24 09/01/24 01:27 03:05 03:05 WBC 11.2 H RBC Hgb Hct Neutrophils # 10.0 H Lymphocytes # 0.4 L PT INR ABG pH 7.26 L ABG pCO2 49 H ABG pO2 64 L ABG HCO3 ABG Total CO2 ABG O2 Saturation 86.9 L Hemoglobin Sodium Potassium Chloride 110 H Carbon Dioxide BUN 101 H* Creatinine 2.77 H Glucose POC Glucose (mg/dL) Plasma Lactic Acid Maciel Calcium 6.2 L* Total Bilirubin AST Alkaline Phosphatase Total Protein Albumin Procalcitonin Cortisol Urine Protein Urine Blood Urine Bilirubin Urine WBC Amorphous Sediment Urine Bacteria Hyaline Casts Urine Mucus 09/01/24 09/01/24 09/01/24 03:05 03:05 04:51 WBC RBC Hgb Hct Neutrophils # Lymphocytes # PT INR ABG pH ABG pCO2 ABG pO2 72 L ABG HCO3 ABG Total CO2 ABG O2 Saturation Hemoglobin Sodium Potassium Chloride Carbon Dioxide BUN Creatinine Glucose POC Glucose (mg/dL) Plasma Lactic Acid Maciel Calcium Total Bilirubin AST Alkaline Phosphatase Total Protein Albumin Procalcitonin 13.10 H Cortisol 39.4 H Urine Protein Urine Blood Urine Bilirubin Urine WBC Amorphous Sediment Urine Bacteria Hyaline Casts Urine Mucus 09/02/24 09/02/24 09/02/24 02:30 02:30 04:56 WBC 26.0 H RBC 4.25 L Hgb 12.3 L Hct 38.1 L Neutrophils # Lymphocytes # PT INR ABG pH ABG pCO2 33 L ABG pO2 259 H ABG HCO3 19 L ABG Total CO2 ABG O2 Saturation 99.9 H Hemoglobin 12.4 L Sodium 146 H Potassium Chloride 114 H Carbon Dioxide 16 L BUN 95 H Creatinine 2.34 H Glucose 135 H POC Glucose (mg/dL) Plasma Lactic Acid Maciel Calcium 7.1 L Total Bilirubin AST Alkaline Phosphatase Total Protein Albumin Procalcitonin Cortisol Urine Protein Urine Blood Urine Bilirubin Urine WBC Amorphous Sediment Urine Bacteria Hyaline Casts Urine Mucus 09/02/24 09/02/24 09/03/24 17:42 23:58 03:35 WBC 20.4 H RBC 3.50 L Hgb 10.2 L Hct 30.6 L Neutrophils # Lymphocytes # PT INR ABG pH ABG pCO2 ABG pO2 ABG HCO3 ABG Total CO2 ABG O2 Saturation Hemoglobin Sodium Potassium Chloride Carbon Dioxide BUN Creatinine Glucose POC Glucose (mg/dL) 177 H 159 H Plasma Lactic Acid Maciel Calcium Total Bilirubin AST Alkaline Phosphatase Total Protein Albumin Procalcitonin Cortisol Urine Protein Urine Blood Urine Bilirubin Urine WBC Amorphous Sediment Urine Bacteria Hyaline Casts Urine Mucus 09/03/24 09/03/24 09/03/24 03:35 06:14 06:19 WBC RBC Hgb Hct Neutrophils # Lymphocytes # PT INR ABG pH 7.53 H ABG pCO2 34 L ABG pO2 125 H ABG HCO3 28 H ABG Total CO2 29 H ABG O2 Saturation 99.2 H Hemoglobin 10.5 L Sodium 146 H Potassium 2.9 L Chloride 113 H Carbon Dioxide BUN 87 H Creatinine 1.63 H Glucose 159 H POC Glucose (mg/dL) 160 H Plasma Lactic Acid Maciel Calcium 7.2 L Total Bilirubin AST Alkaline Phosphatase Total Protein Albumin Procalcitonin Cortisol Urine Protein Urine Blood Urine Bilirubin Urine WBC Amorphous Sediment Urine Bacteria Hyaline Casts Urine Mucus 09/03/24 09/03/24 09/03/24 11:26 16:29 17:29 WBC RBC Hgb Hct Neutrophils # Lymphocytes # PT INR ABG pH ABG pCO2 ABG pO2 ABG HCO3 ABG Total CO2 ABG O2 Saturation Hemoglobin Sodium 147 H Potassium 3.1 L Chloride Carbon Dioxide BUN Creatinine Glucose POC Glucose (mg/dL) 124 H 115 H Plasma Lactic Acid Maciel Calcium Total Bilirubin AST Alkaline Phosphatase Total Protein Albumin Procalcitonin Cortisol Urine Protein Urine Blood Urine Bilirubin Urine WBC Amorphous Sediment Urine Bacteria Hyaline Casts Urine Mucus 09/04/24 09/04/24 09/04/24 00:18 04:45 04:45 WBC 16.0 H RBC 3.56 L Hgb 10.5 L Hct 31.2 L Neutrophils # Lymphocytes # PT INR ABG pH ABG pCO2 ABG pO2 ABG HCO3 ABG Total CO2 ABG O2 Saturation Hemoglobin Sodium 146 H Potassium Chloride 112 H Carbon Dioxide BUN 75 H Creatinine 1.31 H Glucose 148 H POC Glucose (mg/dL) 150 H Plasma Lactic Acid Maciel Calcium 7.2 L Total Bilirubin AST Alkaline Phosphatase Total Protein Albumin Procalcitonin Cortisol Urine Protein Urine Blood Urine Bilirubin Urine WBC Amorphous Sediment Urine Bacteria Hyaline Casts Urine Mucus 09/04/24 09/04/24 09/04/24 06:03 12:23 17:49 WBC RBC Hgb Hct Neutrophils # Lymphocytes # PT INR ABG pH 7.50 H ABG pCO2 ABG pO2 71 L ABG HCO3 29 H ABG Total CO2 30 H ABG O2 Saturation Hemoglobin 10.6 L Sodium Potassium Chloride Carbon Dioxide BUN Creatinine Glucose POC Glucose (mg/dL) 120 H 125 H Plasma Lactic Acid Maciel Calcium Total Bilirubin AST Alkaline Phosphatase Total Protein Albumin Procalcitonin Cortisol Urine Protein Urine Blood Urine Bilirubin Urine WBC Amorphous Sediment Urine Bacteria Hyaline Casts Urine Mucus 09/05/24 09/05/24 09/05/24 00:16 05:00 05:00 WBC 17.8 H RBC 3.69 L Hgb 10.6 L Hct 32.5 L Neutrophils # Lymphocytes # PT INR ABG pH ABG pCO2 ABG pO2 ABG HCO3 ABG Total CO2 ABG O2 Saturation Hemoglobin Sodium Potassium Chloride 109 H Carbon Dioxide BUN 70 H Creatinine Glucose 163 H POC Glucose (mg/dL) 137 H Plasma Lactic Acid Maciel Calcium 6.7 L Total Bilirubin AST Alkaline Phosphatase Total Protein Albumin Procalcitonin Cortisol Urine Protein Urine Blood Urine Bilirubin Urine WBC Amorphous Sediment Urine Bacteria Hyaline Casts Urine Mucus 09/05/24 09/05/24 09/05/24 05:47 06:11 11:40 WBC RBC Hgb Hct Neutrophils # Lymphocytes # PT INR ABG pH 7.50 H ABG pCO2 ABG pO2 78 L ABG HCO3 28 H ABG Total CO2 30 H ABG O2 Saturation Hemoglobin 11.1 L Sodium Potassium Chloride Carbon Dioxide BUN Creatinine Glucose POC Glucose (mg/dL) 158 H 143 H Plasma Lactic Acid Maciel Calcium Total Bilirubin AST Alkaline Phosphatase Total Protein Albumin Procalcitonin Cortisol Urine Protein Urine Blood Urine Bilirubin Urine WBC Amorphous Sediment Urine Bacteria Hyaline Casts Urine Mucus Assessment and Plan Assessment: This is a 63-year-old gentleman who presented emergency department because of nausea vomiting and shortness of breath.. On presentation patient. During the hospital stay on presentation he was hypoxic as well as the first few days during this hospital visit he had a fever with leukocytosis and it was felt possibly aspiration pneumonia. He continues to be altered even off sedation for the last 48 hours. Altered mental status and seems due to multifactorial: septic encephalopathy likely from aspiration pneumonia , as well as component of metabolic encephalopa thy. CT of the head is unremarkable for any acute or subacute process. Acute acute kidney injury--resolved Fever and leukocytosis and it was felt patient likely has aspiration pneumonia and its likely due to his vomiting episode Slight transaminitis Acute hypoxemic and hypercapnic respiratory failure secondary to aspiration pneumonia the patient is intubated on the ventilator History of Parkinson disease status post Deep brain stimulator (DBS) History of hypertension Hyperlipidemia Plan: I ordered a stat EEG which will be completed tomorrow Patient is on subcu heparin and will hold the medication and tomorrow if patient continues to to be confused will attempt lumbar puncture. Unlikely patient has meningitis or encephalitis Patient is on his home medication of Sinemet 25-100 1 tablet 3 times daily Ordered ammonia level, TSH, vitamin B12 Recommend infectious disease consultation Will defer the rest of the medical management to primary and other specialist Plan is discussed with the ICU nurse Thank you for the consultation. Time with Patient: Greater than 30
[2024-09-05 17:43] LABS: Glucose,Whole Blood 130 mg/dL (70-110)
--- NOTE | 2024-09-05 19:16 | P.PN ---
Subjective Progress Note Date: 09/05/24 Patient evaluated today in the intensive care unit remains on the mechanical ventilator. Repeat chest x-ray today shows persistent multifocal acute infiltrate. Patient remains on a course of IV Zosyn with concern for aspiration pneumonia. Patient has been off sedation for over 48 hours now without impro vement in his mentation neurology was consulted for the same. EEG has been ordered. Additionally neurology had recommended infectious disease consultation secondary to the elevated white blood cell count currently today to 17.8. His renal function has improved. He continues on IV hydrocortisone. Unable to complete a review of systems at this time as patient is currently unresponsive intubated GENERAL: T intubated and sedated HEENT: Pupils are round and equally reacting to light. EOMI. No scleral icterus. No conjunctival pallor. Normocephalic, atraumatic. No pharyngeal erythema. No thyromegaly. CARDIOVASCULAR: S1 and S2 present. No murmurs, rubs, or gallops. PULMONARY: Chest is clear to auscultation, no wheezing , no crackles. ABDOMEN: Soft, nontender, nondistended, normoactive bowel sounds. No palpable organomegaly. MUSCULOSKELETAL: No joint swelling or deformity. EXTREMITIES: No cyanosis, clubbing, or pedal edema. NEUROLOGICAL: Gross neurological examination did not reveal any focal deficits. Unable to fully assess secondary to altered mentation and unresponsiveness SKIN: No rashes. no petechiae. Assessment Acute hypoxic respiratory failure requiring intubation and mechanical ventilation Bibasilar pneumonia suspicious for aspiration pneumonia partial small bowel obstruction and right inguinal hernia with loops of small bowel septic shock secondary to above, resolved Acute kidney injury, improving Marked right hydronephrosis, evaluated by urologist History of Parkinson disease GI prophylaxis DVT prophylaxis Full code Plan Continue in the ICU with pulmonary/critical care team consult Continue with mechanical ventilation as per ICU team. Patient started on Zosyn. Follow-up culture results infectious disease was consulted Discontinue Levophed Urology team consulted for his right hydronephrosis. Nephrology team consult EEG currently ordered and pending General Surgery consulted for concerns for partial small bowel obstruction with no need for surgical intervention currently Repeat labs in the AM The impression and plan of care has been dictated by Rocío Vasquez Nurse Practitioner as directed. Dr. Frank MD I have performed a history and physical examination and medical decision making of this patient, discussed the same with the dictator, and agree with the dictators assessment and plan as written, documented as a scribe. Based on total visit time, I have performed more than 50% of this visit. Objective - Vital Signs Vital signs: Vital Signs Temp 98 F 09/05/24 16:00 Pulse 88 09/05/24 19:00 Resp 24 09/05/24 19:00 BP 133/68 09/04/24 19:00 Pulse Ox 94 L 09/05/24 19:00 FiO2 40 09/05/24 16:05 Intake & Output 09/05/24 09/05/24 09/06/24 06:59 18:59 06:59 Intake Total 2599 1978 98 Output Total 990 915 50 Balance 1609 1063 48 Weight 98 kg Intake: IV 929 353 23 0.9 kvo 80 20 Dextrose 5% in Water 1, 890 140 000 ml @ 10 mls/hr IV . Q24H [facility] Rx#:[id number] Piperacillin-Tazobactam 3 100 .375 gm In Sodium Chloride 0.9% 100 ml @ 25 mls/hr IVPB Q8H [facility] Rx#: [id number] Pressure Bag 39 33 3 Tube Feeding 870 825 75 Other 800 800 Output: Urine 990 915 50 Other: Voiding Method Indwelling Catheter Indwelling Catheter # Bowel Movements 1 ABP, PAP, CO, CI - Last Documented Arterial Blood Pressure 143/60 - Labs CBC & Chem 7: 09/05/24 05:00 09/05/24 05:00 Labs: Abnormal Lab Results - Last 24 Hours (Table) 09/05/24 09/05/24 09/05/24 Range/Units 00:16 05:00 05:00 WBC 17.8 H (3.8-10.6) k/uL RBC 3.69 L (4.30-5.90) m/uL Hgb 10.6 L (13.0-17.5) gm/dL Hct 32.5 L (39.0-53.0) % ABG pH (7.35-7.45) ABG pO2 (83-108) mmHg ABG HCO3 (21-25) mmol/L ABG Total CO2 (19-24) mmol/L Hemoglobin (13.0-17.5) gm/dL Chloride 109 H (98-107) mmol/L BUN 70 H (9-20) mg/dL Glucose 163 H (74-99) mg/dL POC Glucose (mg/dL) 137 H (70-110) mg/dL Calcium 6.7 L (8.4-10.2) mg/dL 09/05/24 09/05/24 09/05/24 Range/Units 05:47 06:11 11:40 WBC (3.8-10.6) k/uL RBC (4.30-5.90) m/uL Hgb (13.0-17.5) gm/dL Hct (39.0-53.0) % ABG pH 7.50 H (7.35-7.45) ABG pO2 78 L (83-108) mmHg ABG HCO3 28 H (21-25) mmol/L ABG Total CO2 30 H (19-24) mmol/L Hemoglobin 11.1 L (13.0-17.5) gm/dL Chloride (98-107) mmol/L BUN (9-20) mg/dL Glucose (74-99) mg/dL POC Glucose (mg/dL) 158 H 143 H (70-110) mg/dL Calcium (8.4-10.2) mg/dL 09/05/24 Range/Units 17:41 WBC (3.8-10.6) k/uL RBC (4.30-5.90) m/uL Hgb (13.0-17.5) gm/dL Hct (39.0-53.0) % ABG pH (7.35-7.45) ABG pO2 (83-108) mmHg ABG HCO3 (21-25) mmol/L ABG Total CO2 (19-24) mmol/L Hemoglobin (13.0-17.5) gm/dL Chloride (98-107) mmol/L BUN (9-20) mg/dL Glucose (74-99) mg/dL POC Glucose (mg/dL) 130 H (70-110) mg/dL Calcium (8.4-10.2) mg/dL Assessment and Plan Time with Patient: Less than 30
[2024-09-05] MEDS: HYDROCORTISONE SUCCINATE 100 MG/2 ML VIAL IV SCH (21:14)
--- NOTE | 2024-09-05 22:56 | P.CONS ---
History of Present Illness - Reason for Consult Consult date: 09/05/24 Leukocytosis Requesting physician: Erwin Neal - Chief Complaint Nausea and vomiting on admission 5 days ago - History of Present Illness Patient is a 63-year-old male with a past medical history significant for hypertension presenting to the hospital about 5 days ago for evaluation of nausea vomiting and increased work of breathing symptom was going on for few days before presentation to the hospital patient did have a chest x-ray on admission bibasilar infiltrate correlate for atelectasis CT abdominal pelvis bibasilar consolidation with air bronchograms and effusion right inguinal hernia no colonic obstruction mild right hydronephrosis at the ureteropelvic junction patient has been evaluated by pulmonary general surgery and nephrology patient did have a fever of 102 F on admission and did have a temperature of 101 F on 09/01/2024 however the patient has been afebrile since then,patient did require intubation because of his work of breathing and possible aspiration and currently on the ventilator FiO2 is currently at 40% no significant purulent secretion through the ET patient did have a white count of 11.7 which is up to 26,000 on 09/02/2024 is currently at 17.8 patient UA has been negative influenza RSV COVID testing has been negative blood culture urine culture negative sputum grew Richelle albicans and the patient is currently on Zosyn infectious he was consulted because of his elevated white count patient was on Solu-Cortef from 09/03/2024 until this morning most information has been obtained from review the chart talking nursing staff as the patient is currently on the ventilator had been avoiding history Review of Systems Positive points has been mentioned in HPI complete review could not be obtained because patient intubated on the vent Past Medical History Past Medical History: Hypertension Additional Past Medical History / Comment(s): parkinsons History of Any Multi-Drug Resistant Organisms: None Reported Past Surgical History: No Surgical Hx Reported Additional Past Surgical History / Comment(s): deep brain stimulator Past Anesthesia/Blood Transfusion Reactions: No Reported Reaction Past Psychological History: No Psychological Hx Reported Smoking Status: Former smoker Past Alcohol Use History: Occasional Past Drug Use History: Marijuana Medications and Allergies Home Medications Medication Instructions Recorded Confirmed Type Atorvastatin [Lipitor] 20 mg PO HS@1800 08/31/24 08/31/24 History Carbidopa-Levodopa 25-100 mg 1 tab PO TID@0600,1400,1800 08/31/24 08/31/24 History [Sinemet 25-100] atenoloL [Tenormin] 25 mg PO DAILY@0600 08/31/24 08/31/24 History Allergies Allergy/AdvReac Type Severity Reaction Status Date / Time No Known Allergies Allergy Verified 08/31/24 20:47 Physical Exam Vitals: Vital Signs Temp Pulse Resp BP Pulse Ox FiO2 09/05/24 12:06 81 09/05/24 12:00 98.8 F 84 27 H 96 40 09/05/24 11:54 78 40 09/05/24 11:00 85 24 95 09/05/24 10:00 85 26 H 96 09/05/24 09:00 85 24 95 09/05/24 08:17 73 09/05/24 08:04 70 09/05/24 08:02 40 09/05/24 08:00 98.5 F 83 27 H 96 40 09/05/24 07:00 87 26 H 94 L 09/05/24 06:00 80 23 96 09/05/24 05:00 72 27 H 94 L 09/05/24 04:33 74 23 09/05/24 04:26 40 09/05/24 04:25 69 23 09/05/24 04:00 98.1 F 70 22 94 L 40 09/05/24 03:46 40 09/05/24 03:45 40 09/05/24 03:00 60 24 93 L 09/05/24 02:00 65 25 H 95 09/05/24 01:00 79 25 H 91 L 09/05/24 00:38 86 26 H 09/05/24 00:29 40 09/05/24 00:28 77 26 H 09/05/24 00:00 94 19 95 09/04/24 23:27 40 09/04/24 23:26 40 09/04/24 23:00 70 27 H 95 09/04/24 22:00 76 23 94 L 09/04/24 21:00 84 24 94 L 09/04/24 20:27 88 27 H 09/04/24 20:20 40 09/04/24 20:19 87 32 H 09/04/24 20:00 98.9 F 91 31 H 94 L 40 09/04/24 19:00 96 31 H 133/68 94 L 40 09/04/24 18:00 67 28 H 160/79 95 40 09/04/24 17:00 61 25 H 126/68 97 40 09/04/24 16:41 61 09/04/24 16:37 40 09/04/24 16:34 59 L 09/04/24 16:00 98.8 F 60 27 H 114/62 95 40 09/04/24 15:00 65 23 141/73 94 L 09/04/24 14:00 73 30 H 108/88 93 L 40 09/04/24 13:05 78 09/04/24 13:00 98.8 F 73 29 H 139/77 96 40 09/04/24 12:55 78 40 Intake and Output 09/04/24 09/05/24 09/05/24 22:59 06:59 14:59 Intake Total 1404 1887 1030 Output Total 490 800 390 Balance 914 1087 640 Intake: IV 564 657 255 Dextrose 5% in Water 1, 540 630 140 000 ml @ 10 mls/hr IV . Q24H TRIP Rx#:[id number] Piperacillin-Tazobactam 3 100 .375 gm In Sodium Chloride 0.9% 100 ml @ 25 mls/hr IVPB Q8H TRIP Rx#: [id number] Pressure Bag 24 27 15 Tube Feeding 440 630 375 Other 400 600 400 Output: Urine 490 800 390 Other: Voiding Method Indwelling Catheter Indwelling Catheter Indwelling Catheter Weight 96.5 kg 98 kg ABP, PAP, CO, CI - Last 8 Hours Arterial Blood Pressure 149/60 Arterial Blood Pressure 114/50 Arterial Blood Pressure 148/61 Arterial Blood Pressure 116/51 Arterial Blood Pressure 150/60 Arterial Blood Pressure 121/52 Arterial Blood Pressure 130/51 Arterial Blood Pressure 128/55 GENERAL DESCRIPTION: Elderly male intubated on the vent HEENT: Shows Pallor , no scleral icterus. Oral mucous membrane is dry. NECK: Trachea central, no thyromegaly. LUNGS: Unlabored breathing. Decreased breath sounds at the base HEART: S1, S2, regular rate and rhythm. No loud murmur ABDOMEN: Soft, no tenderness , guarding or rigidity, no organomegaly EXTREMITIES: No edema of feet. SKIN: No rash, no masses palpable. NEUROLOGICAL: The patient is sedated on the vent Results CBC & Chem 7: 09/05/24 05:00 09/05/24 05:00 Labs: Abnormal Lab Results - Last 24 Hours (Table) 09/04/24 09/05/24 09/05/24 Range/Units 17:49 00:16 05:00 WBC 17.8 H (3.8-10.6) k/uL RBC 3.69 L (4.30-5.90) m/uL Hgb 10.6 L (13.0-17.5) gm/dL Hct 32.5 L (39.0-53.0) % ABG pH (7.35-7.45) ABG pO2 (83-108) mmHg ABG HCO3 (21-25) mmol/L ABG Total CO2 (19-24) mmol/L Hemoglobin (13.0-17.5) gm/dL Chloride (98-107) mmol/L BUN (9-20) mg/dL Glucose (74-99) mg/dL POC Glucose (mg/dL) 125 H 137 H (70-110) mg/dL Calcium (8.4-10.2) mg/dL 09/05/24 09/05/24 09/05/24 Range/Units 05:00 05:47 06:11 WBC (3.8-10.6) k/uL RBC (4.30-5.90) m/uL Hgb (13.0-17.5) gm/dL Hct (39.0-53.0) % ABG pH 7.50 H (7.35-7.45) ABG pO2 78 L (83-108) mmHg ABG HCO3 28 H (21-25) mmol/L ABG Total CO2 30 H (19-24) mmol/L Hemoglobin 11.1 L (13.0-17.5) gm/dL Chloride 109 H (98-107) mmol/L BUN 70 H (9-20) mg/dL Glucose 163 H (74-99) mg/dL POC Glucose (mg/dL) 158 H (70-110) mg/dL Calcium 6.7 L (8.4-10.2) mg/dL 09/05/24 Range/Units 11:40 WBC (3.8-10.6) k/uL RBC (4.30-5.90) m/uL Hgb (13.0-17.5) gm/dL Hct (39.0-53.0) % ABG pH (7.35-7.45) ABG pO2 (83-108) mmHg ABG HCO3 (21-25) mmol/L ABG Total CO2 (19-24) mmol/L Hemoglobin (13.0-17.5) gm/dL Chloride (98-107) mmol/L BUN (9-20) mg/dL Glucose (74-99) mg/dL POC Glucose (mg/dL) 143 H (70-110) mg/dL Calcium (8.4-10.2) mg/dL Microbiology - Last 24 Hours (Table) 09/01/24 03:20 Blood Culture - Preliminary Blood Assessment and Plan (1) Leukocytosis Current Visit: Yes Status: Acute Code(s): D72.829 - ELEVATED WHITE BLOOD CELL COUNT, UNSPECIFIED SNOMED Code(s): 202151694 (2) Aspiration pneumonia Current Visit: Yes Status: Acute Code(s): J69.0 - PNEUMONITIS DUE TO INHALATION OF FOOD AND VOMIT SNOMED Code(s): 783936658 Plan: 1patient with initial presentation to hospital with nausea and vomiting patient also have a fever on admission that has resolved as of 09/01/[address] abdominal pelvis did not show any obstruction but evidence of bibasilar consolidation concerning for possible aspiration pneumonia sputum has been candidal because patient did have elevated white count could be related to his pneumonia possible aspiration etiology versus steroids that has been discontinued this morning patient apparently also have issues with mentation is not waking up underlying encephalitis less likely but not entirely excluded and apparently neurology is planning on doing LP as reported by the nursing staff 2-for now we will continue with Zosyn for his aspiration pneumonia and expect a white count to trend down specially with discontinuation of steroids this morning We will follow on clinical condition and cultures to further adjust medication if needed Thank you for this consultation we will follow the patient along with you Dictation was produced using [employer] dictation software. please excuse any grammatical, word or spelling errors. Time with Patient: Greater than 30
[2024-09-06 00:19] LABS: Glucose,Whole Blood 122 mg/dL (70-110)
--- NOTE | 2024-09-06 01:25 | P.PN ---
Progress Note - Text Progress Note Date: 09/05/24 CHIEF COMPLAINT: Aspiration pneumonia HISTORY OF PRESENT ILLNESS: Patient remains in the ICU and on mechanical ventilation. Tube feedings are at goal via NG tube. Patient tolerating tube feeds. Patient has not had any bowel movements. PHYSICAL EXAM: VITAL SIGNS: Reviewed. GENERAL: no acute distress. Intubated ABDOMEN: Soft. Mildly distended. Nontender. ASSESSMENT: 1. Partial small bowel obstruction with right inguinal hernia containing small bowel 2. Aspiration pneumonia and hypoxia PLAN: -Vent management per pulmonary service -Continue conservative management for partial small bowel obstruction due to aspiration pneumonia and hypoxia -Continue tube feeds via NG tube -Will continue to follow closely Sergei Acevedo DO [facility] [phone]
[2024-09-06 04:49] LABS: HCT 35.1 % (39.0-53.0); HGB 11.6 gm/dL (13.0-17.5); MCH 29.4 pg (25.0-35.0); MCHC 33.2 g/dL (31.0-37.0); MCV 88.7 fL (80.0-100.0); Mean Platelet Volume 8.2; Platelet Count 183 k/uL (150-450); RBC 3.95 m/uL (4.30-5.90); RDW 13.7 % (11.5-15.5); WBC 23.3 k/uL (3.8-10.6)
[2024-09-06 04:59] LABS: African American GFR (CKD) 78 (>60 ml/min/1.73 sqM); Anion Gap 6 mmol/L; Blood Urea Nitrogen 65 mg/dL (9-20); Calcium 6.9 mg/dL (8.4-10.2); Carbon Dioxide 28 mmol/L (22-30); Chloride 109 mmol/L (98-107); Glucose 127 mg/dL (74-99); Magnesium 2.1 mg/dL (1.6-2.3); Non-African American GFR(CKD) 68 (>60 ml/min/1.73 sqM); Potassium 3.3 mmol/L (3.5-5.1); Sodium 143 mmol/L (137-145)
[2024-09-06] MEDS: POTASSIUM BICARBONATE/CIT AC 20 MEQ TABLET.EFF NG-TUBE SCH ×2 (05:21→15:38)
[2024-09-06 05:35] LABS: Glucose,Whole Blood 128 mg/dL (70-110)
[2024-09-06 05:57] LABS: ABG PCO2 33 mmHg (35-45); ABG PH 7.55 (7.35-7.45); Allen Test Performed? Yes
[2024-09-06 05:58] LABS: ABG Base Excess 6.2 mmol/L; ABG HCO3 29 mmol/L (21-25); ABG PO2 91 mmHg (83-108); ABG TCO2 30 mmol/L (19-24)
[2024-09-06 06:00] LABS: Band Neutrophils % 6 %; Lymphocytes # (M) 2.33 k/uL (1.0-4.8); Metamyelocytes # (M) 0.23 k/uL (0); Metamyelocytes % 1 %; Myelocytes # (M) 0.23 k/uL (0); Myelocytes % 1 %; Neutrophils % (M) 81 %; Nucleated Red Blood Cells 0 /100 WBC (0-0); Total Cells Counted 200
--- NOTE | 2024-09-06 07:07 | XR ---
EXAMINATION TYPE: XR chest 1V portable DATE OF EXAM: 09/06/2024 CLINICAL HISTORY: Difficulty breathing progress study. TECHNIQUE: Single AP portable semiupright view of the chest is obtained. COMPARISON: Chest x-ray from one day earlier and older studies. FINDINGS: Stable endotracheal and orogastric tubes. Persistent multifocal airspace opacities more prominent inferiorly. Small left pleural effusion suspe cted. Cardiac silhouette size stable and within normal limits. Multilevel spurring in the thoracolumb ar spine redemonstrated. Left neck stimulator device again seen. IMPRESSION: Persistent bilateral multifocal acute infiltrates and/or edema greatest in the lower lung s. No significant change from one day earlier. [facility], , 09/06/2024 7:04 AM
--- NOTE | 2024-09-06 09:54 | P.PN ---
Subjective Patient is seen in follow-up for acute kidney injury. Renal function stable. Remains off vasopressors. Sodium level 143. Receiving tube feeds with water flushes D5W was discontinued September 05, 2024. Vital signs are stable. General: Resting in bed. HEENT: Intubated. LUNGS: Scattered rhonchi. HEART: Rate and Rhythm are regular. ABDOMEN: No distention. EXTREMITITES: Trace edema. Objective - Vital Signs Vital signs: Vital Signs Temp 98.9 F 09/06/24 04:00 Pulse 88 09/06/24 09:00 Resp 27 H 09/06/24 09:00 BP 119/64 09/06/24 09:00 Pulse Ox 94 L 09/06/24 09:00 FiO2 40 09/06/24 09:00 Intake & Output 09/05/24 09/06/24 09/06/24 18:59 06:59 18:59 Intake Total 1977 Output Total 915 1220 190 Balance 1063 781 -76 Weight 97.8 kg Intake: IV 353 396 39 0.9 kvo 80 160 30 Dextrose 5% in Water 1, 140 000 ml @ 10 mls/hr IV . Q24H TRIP Rx#:[id number] Piperacillin-Tazobactam 3 100 200 .375 gm In Sodium Chloride 0.9% 100 ml @ 25 mls/hr IVPB Q8H TRIP Rx#: [id number] Pressure Bag 33 36 9 Tube Feeding 825 805 75 Other 800 800 Output: Urine 915 1220 190 Other: Voiding Method Indwelling Catheter Indwelling Catheter # Bowel Movements 1 1 ABP, PAP, CO, CI - Last Documented Arterial Blood Pressure 140/57 - Labs CBC & Chem 7: 09/06/24 04:30 09/06/24 04:30 Labs: Abnormal Lab Results - Last 24 Hours (Table) 09/05/24 09/05/24 09/05/24 Range/Units 11:40 14:30 17:41 WBC (3.8-10.6) k/uL RBC (4.30-5.90) m/uL Hgb (13.0-17.5) gm/dL Hct (39.0-53.0) % Neutrophils # (Manual) (1.3-7.7) k/uL Metamyelocytes # (Man) (0) k/uL Myelocytes # (Manual) (0) k/uL ABG pH (7.35-7.45) ABG pCO2 (35-45) mmHg ABG HCO3 (21-25) mmol/L ABG Total CO2 (19-24) mmol/L ABG O2 Saturation (94-97) % Potassium (3.5-5.1) mmol/L Chloride (98-107) mmol/L BUN (9-20) mg/dL Glucose (74-99) mg/dL POC Glucose (mg/dL) 143 H 130 H (70-110) mg/dL Calcium (8.4-10.2) mg/dL Vitamin B12 1236.0 H (200.0-944.0) pg/mL 09/06/24 09/06/24 09/06/24 Range/Units 00:18 04:30 04:30 WBC 23.3 H (3.8-10.6) k/uL RBC 3.95 L (4.30-5.90) m/uL Hgb 11.6 L (13.0-17.5) gm/dL Hct 35.1 L (39.0-53.0) % Neutrophils # (Manual) 20.20 H (1.3-7.7) k/uL Metamyelocytes # (Man) 0.23 H (0) k/uL Myelocytes # (Manual) 0.23 H (0) k/uL ABG pH (7.35-7.45) ABG pCO2 (35-45) mmHg ABG HCO3 (21-25) mmol/L ABG Total CO2 (19-24) mmol/L ABG O2 Saturation (94-97) % Potassium 3.3 L (3.5-5.1) mmol/L Chloride 109 H (98-107) mmol/L BUN 65 H (9-20) mg/dL Glucose 127 H (74-99) mg/dL POC Glucose (mg/dL) 122 H (70-110) mg/dL Calcium 6.9 L (8.4-10.2) mg/dL Vitamin B12 (200.0-944.0) pg/mL 09/06/24 09/06/24 Range/Units 05:33 05:49 WBC (3.8-10.6) k/uL RBC (4.30-5.90) m/uL Hgb (13.0-17.5) gm/dL Hct (39.0-53.0) % Neutrophils # (Manual) (1.3-7.7) k/uL Metamyelocytes # (Man) (0) k/uL Myelocytes # (Manual) (0) k/uL ABG pH 7.55 H (7.35-7.45) ABG pCO2 33 L (35-45) mmHg ABG HCO3 29 H (21-25) mmol/L ABG Total CO2 30 H (19-24) mmol/L ABG O2 Saturation 98.0 H (94-97) % Potassium (3.5-5.1) mmol/L Chloride (98-107) mmol/L BUN (9-20) mg/dL Glucose (74-99) mg/dL POC Glucose (mg/dL) 128 H (70-110) mg/dL Calcium (8.4-10.2) mg/dL Vitamin B12 (200.0-944.0) pg/mL Assessment and Plan Plan: Assessment: 1. Acute kidney injury secondary to ATN secondary to septic shock. Creatinine 2.84 on admission and is 1.14 today. Nonoliguric. 2. Right hydronephrosis, chronic. Urology following. 3. Acute hypoxic respiratory failure. Intubated. 4. Pneumonia on antibiotics. 5. Hypernatremia from lack of oral water intake and free water losses. Better. Plan: Maintain tube feeds. Maintain free water flushes 200 cc every 3 hours. Potassium replaced. Avoid nephrotoxins. Continue to monitor renal function and urine output.
--- NOTE | 2024-09-06 11:39 | P.PN ---
Subjective Progress Note Date: 09/06/24 Principal diagnosis: Respiratory failure. Patient is a 63-year-old male with past medical history significant for Parkinson disease, with nerve brain stimulator hypertension, hyperlipidemia. According to the ER note, patient has had a couple days of nausea, vomiting, and shortness of breath. Found to be increasingly lethargic while at home and EMS was called. Noted to have brown emesis and around by EMS. Of note, reportedly had a recent hospitalization at [facility] for issues with his kidney function. On arrival to the ED, noted to be in some respiratory distress, placed on BiPAP with initial settings 10/5 and FiO2 100%. He did have a CT of the abdomen and pelvis which demonstrated bibasilar airspace consolidations with air bronchograms and small bilateral effusions. Also, right inguinal hernia containing loop of small bowel and possible partial small bowel obstruction. Normal caliber colon with mild fecal retention. Marked right-sided hydrone phrosis at the ureteropelvic junction. A nasogastric tube was inserted in the emergency department for gastric decompression, and a total of 1 L of brown fecal like content was immediately evacuated. On my initial evaluation in the emergency department, patient was in trauma bay 2. He was comatose state and obviously unable to protect his airway. He was on BiPAP with above-mentioned settings. Breathing in the high 30s. SpO2 was reading 80%. Patient obviously needed to be intubated. TECHNOLOGY [employer]PLICATIONS ENGINEER was called and rapid sequence intubation was carried out. Initial ventilator settings included AC, respiratory rate 20, tidal volume of 500, FiO2 100%, PEEP of 5. During intubation, patient had a large volume of presumably gastric contents pulling in his posterior oropharynx. Postintubation chest x-ray shows the endotracheal tube in appropriate position above the renan, there is orogastric tube coursing below the diaphragm. There continues to have bibasilar consolidations and probable small pleural effusions. Following intubation, patient became profoundly hypotensive, he is currently receiving a normal saline bolus. He was placed on Levaquin in the emergency department. There is no obvious concern for aspiration pneumonia. CBC: WBC count 11.7, hemoglobin 15.1, hematocrit 45, platelets 299. CMP: Sodium 140, potassium 4.7, chloride 103, serum bicarb 25, BUN 100, creatinine 2.84, glucose 95. Lactic 1.4. LFTs mildly elevated. Pancreatic lipase is 81. Troponin 0.032. Is negative for influenza, RSV, COVID. Unfortunately, we are unable to get a hold of family at this time. Erin mccann is listed as a full code. Progress note dated September 02, 2024: Patient seen in the intensive care unit this morning, no significant overnight events. Patient remains intubated, vent settings AC, rate 24, tidal volume 500, FiO2 50%, and PEEP 10. ABG: CO2 33, O2 259, pH 7.37. CMP: Sodium 146, potassium 3.8, chloride 114, CO2 16, BUN 95, creatinine 2.34, procalcitonin from yesterday 13.1, and cortisol 39.4. Chest x-ray shows endotracheal tube about 5.6 cm above the tracheal renan. Mild worsening patchy bilateral lung infiltrates. Progress note dated September 03, 2024: Patient seen in the ICU this morning, no significant overnight events. Patient remains intubated, vent settings AC, respiratory rate 24, tidal volume 500, FiO2 40%, and PEEP of 10. ABG: O2 125, CO2 34, and pH 7.53. CBC: WBC 20.4, hemoglobin 10.2, hematocrit 30.6, and platelet count 205. CMP: Sodium 146, potassium 2.9, chloride 113, BUN 87, creatinine 1.63, glucose 156, and calcium 7.2. Chest x-ray shows mild scattered increased lung markings, endotracheal tube tip is 4 cm above the renan, and NG tube is in the LUQ of the abdomen. Drips: Levophed 0.02 mcg/kg/min. Tube feeds currently off in anticipation of potential extubation, currently replacing potassium per protocol will recheck at noon and reassess. D5W 40cc.hr Progress note dated September 04, 2024: Patient seen in the intensive care unit this morning with no significant overnight events. Patient has been off propofol since 10 AM yesterday, neurological function remains minimal. He now opens his eyes and responds to vocal commands, but extremities still show no movement. Due to minimal neurological activity TIS SBT postponed for today. Started on Dilaudid 1 mg IVP every 3 hours as needed due to increased pain, will need to monitor patient due to risk of decreased bowel motility. Patient remains intubated, vent settings AC, respiratory rate 24, tidal volume 500, FiO2 40%, and PEEP 5. ABG: pH 7.5, CO2 37, and O2 71. CBC: WBC 16, hemoglobin 10.5, hematocrit 31.2. CMP: Sodium 146, potassium 3.8, chloride 112, BUN 75, creatinine 1.31, glucose 148, and calcium 7.2. Tube feeds are at 50 cc/h with a goal of 75. Patient was put back onto AC at 18:00 yesterday, at that point had been on CPAP for 7 hours. Remains off Levophed. Continues on D5W 45 cc/h. Chest x-ray independently interpreted by me, endotracheal tube tip 2 cm above the renan. Scattered lung markings appear increased from prior. Progress note dated September 05, 2024: Patient is seen in the intensive care unit this morning with no significant overnight events Patient continues to be off sedation with no meaningful change in neurological function. Patient was taken for noncontrast brain CT yesterday which showed no acute intracranial process. Vent settings: AC, rr 24, vt 500, fio2 40%, peep 5.. ABG: pH 7.5, pCO2 37, and O2 78. CBC: WBC 17.8, hemoglobin 10.6, and platelet count 178. CMP: Sodium 143, potassium 3.7, chloride 109, BUN 70, creatinine 1.1, and calcium 6.7. Chest x-ray from today shows persistent bilateral multifocal acute infiltrates and/or edema. No significant change from 1 day earlier. Vital hp running at 75 ml/hr. ROS: Cannot obtain at this time Progress note dated September 06, 2024. 63-year-old male seen in the intensive care unit, in room 259. The patient remains on volume assist-control, rate 24, tidal volume 500, FiO2 40%, PEEP of 5. Blood gases show pO2 of 91, pCO2 33, pH is 7.55. The patient is getting lan ine at 10 cc an hour, vital high-protein at goal, which is 75 cc an hour, and Zosyn. Zosyn will be discontinued today. The patient is currently on hydrocortisone for presumed adrenal insufficiency, which will be discontinued after tomorrow. The patient has been off of sedation for a number of days, and is not responding neurologically. CT scan of the brain showed nothing acute. Neurology was consulted. LP is being considered. EEG has been done. White count is 23.3, hemoglobin 11.6, hematocrit 35.1, platelet count 83,000. Sodium 143, potassium 3.4, chlorides 109, CO2 28, BUN 65, creatinine 1.14. Glucose 128. Calcium 6.9. Magnesium 2.1. Cultures are thus far negative. Chest x-ray shows persistent bibasilar infiltrates, essentially unchanged. Objective - Vital Signs Vital signs: Vital Signs Temp 98.9 F 09/06/24 04:00 Pulse 85 09/06/24 11:20 Resp 27 H 09/06/24 11:00 BP 128/72 09/06/24 11:00 Pulse Ox 94 L 09/06/24 11:00 FiO2 40 09/06/24 11:20 Intake & Output 09/05/24 09/06/24 09/06/24 18:59 06:59 18:59 Intake Total 1977 2000 140 Output Total 915 1220 465 Balance 1063 781 -325 Weight 97.8 kg Intake: IV 353 396 65 0.9 kvo 80 160 50 Dextrose 5% in Water 1, 140 000 ml @ 10 mls/hr IV . Q24H TRIP Rx#:[id number] Piperacillin-Tazobactam 3 100 200 .375 gm In Sodium Chloride 0.9% 100 ml @ 25 mls/hr IVPB Q8H TRIP Rx#: [id number] Pressure Bag 33 36 15 Tube Feeding 825 805 75 Other 800 800 Output: Urine 915 1220 465 Other: Voiding Method Indwelling Catheter Indwelling Catheter # Bowel Movements 1 1 ABP, PAP, CO, CI - Last Documented Arterial Blood Pressure 68/66 - Exam No acute distress, currently with an orally placed endotracheal tube, and orogastric tube. The patient has been off of sedation for a number of days. HEENT examination is grossly unremarkable. Neck supple. Full range of motion. No adenopathy thyromegaly or neck vein distention. Cardiovascular examination reveals regular rhythm rate. S1-S2 normal. No S3 or S4. No discernible murmur noted. Lungs reveal mostly clear breath sounds. Scattered rhonchi are noted. No wheezes or crackles. Breath sounds are equal. Abdomen soft with bowel sounds. No masses or tenderness. Extremities are intact. No cyanosis clubbing or edema. Skin is without rash or lesion. Neurologic examination is unchanged. The patient is poorly responsive. - Labs CBC & Chem 7: 09/06/24 04:30 09/06/24 10:01 Labs: Abnormal Lab Results - Last 24 Hours (Table) 09/05/24 09/05/24 09/05/24 Range/Units 11:40 14:30 17:41 WBC (3.8-10.6) k/uL RBC (4.30-5.90) m/uL Hgb (13.0-17.5) gm/dL Hct (39.0-53.0) % Neutrophils # (Manual) (1.3-7.7) k/uL Metamyelocytes # (Man) (0) k/uL Myelocytes # (Manual) (0) k/uL ABG pH (7.35-7.45) ABG pCO2 (35-45) mmHg ABG HCO3 (21-25) mmol/L ABG Total CO2 (19-24) mmol/L ABG O2 Saturation (94-97) % Potassium (3.5-5.1) mmol/L Chloride (98-107) mmol/L BUN (9-20) mg/dL Glucose (74-99) mg/dL POC Glucose (mg/dL) 143 H 130 H (70-110) mg/dL Calcium (8.4-10.2) mg/dL Vitamin B12 1236.0 H (200.0-944.0) pg/mL 09/06/24 09/06/24 09/06/24 Range/Units 00:18 04:30 04:30 WBC 23.3 H (3.8-10.6) k/uL RBC 3.95 L (4.30-5.90) m/uL Hgb 11.6 L (13.0-17.5) gm/dL Hct 35.1 L (39.0-53.0) % Neutrophils # (Manual) 20.20 H (1.3-7.7) k/uL Metamyelocytes # (Man) 0.23 H (0) k/uL Myelocytes # (Manual) 0.23 H (0) k/uL ABG pH (7.35-7.45) ABG pCO2 (35-45) mmHg ABG HCO3 (21-25) mmol/L ABG Total CO2 (19-24) mmol/L ABG O2 Saturation (94-97) % Potassium 3.3 L (3.5-5.1) mmol/L Chloride 109 H (98-107) mmol/L BUN 65 H (9-20) mg/dL Glucose 127 H (74-99) mg/dL POC Glucose (mg/dL) 122 H (70-110) mg/dL Calcium 6.9 L (8.4-10.2) mg/dL Vitamin B12 (200.0-944.0) pg/mL 09/06/24 09/06/24 09/06/24 Range/Units 05:33 05:49 10:01 WBC (3.8-10.6) k/uL RBC (4.30-5.90) m/uL Hgb (13.0-17.5) gm/dL Hct (39.0-53.0) % Neutrophils # (Manual) (1.3-7.7) k/uL Metamyelocytes # (Man) (0) k/uL Myelocytes # (Manual) (0) k/uL ABG pH 7.55 H (7.35-7.45) ABG pCO2 33 L (35-45) mmHg ABG HCO3 29 H (21-25) mmol/L ABG Total CO2 30 H (19-24) mmol/L ABG O2 Saturation 98.0 H (94-97) % Potassium 3.4 L (3.5-5.1) mmol/L Chloride (98-107) mmol/L BUN (9-20) mg/dL Glucose (74-99) mg/dL POC Glucose (mg/dL) 128 H (70-110) mg/dL Calcium (8.4-10.2) mg/dL Vitamin B12 (200.0-944.0) pg/mL Assessment and Plan Assessment: Acute hypoxemic and hypercapnic respiratory failure, secondary to presumed aspiration, requiring intubation, and mechanical ventilation. Encephalopathy, of unclear etiology. Currently being evaluated by neurology. CT scan negative. Possible partial small bowel obstruction, on CT scan. Acute kidney injury, likely secondary to ATN. Right-sided hydronephrosis. Post intubation hypotension, secondary to volume depletion. History of hypertension. History of hyperlipidemia. History of Parkinson's disease. Plan: Plan dated September 06, 2024. The patient is currently being evaluated by neurology, because of his poor mental status. The patient has been off of sedation for a number of days. The patient will have an EEG, and potentially will need a lumbar puncture. The patient is finishing of Zosyn for possible aspiration pneumonia. The patient continues on GI and DVT prophylaxis. The patient is not yet ready for a spontaneous breathing trial. X-rays, medications are reviewed. The patient continues on tube feedings, at goal, which is 75 cc an hour. Hydrocortisone, which was used for presumed adrenal insufficiency, will be weaned off after tomorrow. We will continue to follow make recommendations. Prognosis is guarded. Time with Patient: Greater than 30
[2024-09-06 13:00] LABS: Glucose,Whole Blood 112 mg/dL (70-110)
--- NOTE | 2024-09-06 13:18 | P.PN ---
Subjective Progress Note Date: 09/06/24 Patient evaluated today in the intensive care unit remains on the mechanical ventilator. Repeat chest x-ray today shows persistent multifocal acute infiltrate. Patient remains on a course of IV Zosyn with concern for aspiration pneumonia. Patient has been off sedation for over 48 hours now without impro vement in his mentation neurology was consulted for the same. EEG has been ordered. Additionally neurology had recommended infectious disease consultation secondary to the elevated white blood cell count currently today to 17.8. His renal function has improved. He continues on IV hydrocortisone. 09/06/2024 Patient evaluated in follow-up in the intensive care unit. Chest x-ray shows persistent bilateral multifocal infiltrates. White blood cell count today 23.3, potassium 3.3, BUN of 65, creatinine 1.14. Patient is currently being weaned off the IV solucortef. He has had multiple episodes of loose stools and C. difficile will be checked. He remains off sedation is slightly more responsive today currently with no plans for lumbar puncture but will be going for an EEG tomorrow. Unable to complete a review of systems at this time as patient is currently unresponsive intubated GENERAL: T intubated and sedated HEENT: Pupils are round and equally reacting to light. EOMI. No scleral icterus. No conjunctival pallor. Normocephalic, atraumatic. No pharyngeal erythema. No thyromegaly. CARDIOVASCULAR: S1 and S2 present. No murmurs, rubs, or gallops. PULMONARY: Chest is clear to auscultation, no wheezing , no crackles. ABDOMEN: Soft, nontender, nondistended, normoactive bowel sounds. No palpable organomegaly. MUSCULOSKELETAL: No joint swelling or deformity. EXTREMITIES: No cyanosis, clubbing, no pedal edema. NEUROLOGICAL: Gross neurological examination did not reveal any focal deficits. Unable to fully assess secondary to altered mentation and unresponsiveness SKIN: No rashes. no petechiae. Assessment Acute hypoxic respiratory failure requiring intubation and mechanical ventilation Bibasilar pneumonia suspicious for aspiration pneumonia partial small bowel obstruction and right inguinal hernia with loops of small bowel septic shock secondary to above, resolved Acute kidney injury, improving Marked right hydronephrosis, evaluated by urologist Leukocytosis could be steroid induced vs infection. History of Parkinson disease Stage II pressure injury to the coccyx and hospital-acquired wound care was consulted GI prophylaxis DVT prophylaxis Full code Plan Continue in the ICU with pulmonary/critical care team consult Continue with mechanical ventilation as per ICU team. ID following with plans to discontinue the zosyn after dose given today IV solucortef to be discontinued Urology team consulted for his right hydronephrosis following along. No plans f or surgical intervention at this time. Nephrology team consult EEG currently ordered and pending. Patient remains off sedation and is slightly more responsive today. General Surgery consulted for concerns for partial small bowel obstruction with no need for surgical intervention currently. Repeat labs in the AM The impression and plan of care has been dictated by Rocío Vasquez, Nurse Practitioner as directed. Dr. Frank MD I have performed a history and physical examination and medical decision making of this patient, discussed the same with the dictator, and agree with the dictators assessment and plan as written, documented as a scribe. Based on total visit time, I have performed more than 50% of this visit. Objective - Vital Signs Vital signs: Vital Signs Temp 98.9 F 09/06/24 04:00 Pulse 88 09/06/24 09:00 Resp 27 H 09/06/24 09:00 BP 119/64 09/06/24 09:00 Pulse Ox 94 L 09/06/24 09:00 FiO2 40 09/06/24 09:00 Intake & Output 09/05/24 09/06/24 09/06/24 18:59 06:59 18:59 Intake Total 1977 2000 114 Output Total 915 1220 190 Balance 1063 781 -76 Weight 97.8 kg Intake: IV 353 396 39 0.9 kvo 80 160 30 Dextrose 5% in Water 1, 140 000 ml @ 10 mls/hr IV . Q24H TRIP Rx#:[id number] Piperacillin-Tazobactam 3 100 200 .375 gm In Sodium Chloride 0.9% 100 ml @ 25 mls/hr IVPB Q8H TRIP Rx#: [id number] Pressure Bag 33 36 9 Tube Feeding 825 805 75 Other 800 800 Output: Urine 915 1220 190 Other: Voiding Method Indwelling Catheter Indwelling Catheter # Bowel Movements 1 1 ABP, PAP, CO, CI - Last Documented Arterial Blood Pressure 140/57 - Labs CBC & Chem 7: 09/06/24 04:30 09/06/24 10:01 Labs: Abnormal Lab Results - Last 24 Hours (Table) 09/05/24 09/05/24 09/05/24 Range/Units 11:40 14:30 17:41 WBC (3.8-10.6) k/uL RBC (4.30-5.90) m/uL Hgb (13.0-17.5) gm/dL Hct (39.0-53.0) % Neutrophils # (Manual) (1.3-7.7) k/uL Metamyelocytes # (Man) (0) k/uL Myelocytes # (Manual) (0) k/uL ABG pH (7.35-7.45) ABG pCO2 (35-45) mmHg ABG HCO3 (21-25) mmol/L ABG Total CO2 (19-24) mmol/L ABG O2 Saturation (94-97) % Potassium (3.5-5.1) mmol/L Chloride (98-107) mmol/L BUN (9-20) mg/dL Glucose (74-99) mg/dL POC Glucose (mg/dL) 143 H 130 H (70-110) mg/dL Calcium (8.4-10.2) mg/dL Vitamin B12 1236.0 H (200.0-944.0) pg/mL 09/06/24 09/06/24 09/06/24 Range/Units 00:18 04:30 04:30 WBC 23.3 H (3.8-10.6) k/uL RBC 3.95 L (4.30-5.90) m/uL Hgb 11.6 L (13.0-17.5) gm/dL Hct 35.1 L (39.0-53.0) % Neutrophils # (Manual) 20.20 H (1.3-7.7) k/uL Metamyelocytes # (Man) 0.23 H (0) k/uL Myelocytes # (Manual) 0.23 H (0) k/uL ABG pH (7.35-7.45) ABG pCO2 (35-45) mmHg ABG HCO3 (21-25) mmol/L ABG Total CO2 (19-24) mmol/L ABG O2 Saturation (94-97) % Potassium 3.3 L (3.5-5.1) mmol/L Chloride 109 H (98-107) mmol/L BUN 65 H (9-20) mg/dL Glucose 127 H (74-99) mg/dL POC Glucose (mg/dL) 122 H (70-110) mg/dL Calcium 6.9 L (8.4-10.2) mg/dL Vitamin B12 (200.0-944.0) pg/mL 09/06/24 09/06/24 Range/Units 05:33 05:49 WBC (3.8-10.6) k/uL RBC (4.30-5.90) m/uL Hgb (13.0-17.5) gm/dL Hct (39.0-53.0) % Neutrophils # (Manual) (1.3-7.7) k/uL Metamyelocytes # (Man) (0) k/uL Myelocytes # (Manual) (0) k/uL ABG pH 7.55 H (7.35-7.45) ABG pCO2 33 L (35-45) mmHg ABG HCO3 29 H (21-25) mmol/L ABG Total CO2 30 H (19-24) mmol/L ABG O2 Saturation 98.0 H (94-97) % Potassium (3.5-5.1) mmol/L Chloride (98-107) mmol/L BUN (9-20) mg/dL Glucose (74-99) mg/dL POC Glucose (mg/dL) 128 H (70-110) mg/dL Calcium (8.4-10.2) mg/dL Vitamin B12 (200.0-944.0) pg/mL Assessment and Plan Time with Patient: Less than 30
--- NOTE | 2024-09-06 13:21 | P.PN ---
Subjective Progress Note Date: 09/06/24 I am following up with the patient and according to the nurse patient is somewhat better today compared to yesterday from the report. The nurse was notified that per the overnight nurse patient was opening eyes to command and was wiggling toes. Patient continues to be off sedation. Objective - Vital Signs Vital signs: Vital Signs Temp 99.4 F 09/06/24 12:00 Pulse 93 09/06/24 13:00 Resp 24 09/06/24 13:00 BP 148/73 09/06/24 13:00 Pulse Ox 93 L 09/06/24 13:00 FiO2 30 09/06/24 12:00 Intake & Output 09/05/24 09/06/24 09/06/24 18:59 06:59 18:59 Intake Total 1977 Output Total 915 1220 465 Balance 1063 781 -299 Weight 97.8 kg Intake: IV 353 396 91 0.9 kvo 80 160 70 Dextrose 5% in Water 1, 140 000 ml @ 10 mls/hr IV . Q24H TRIP Rx#:[id number] Piperacillin-Tazobactam 3 100 200 .375 gm In Sodium Chloride 0.9% 100 ml @ 25 mls/hr IVPB Q8H [facility]IP Rx#: [id number] Pressure Bag 33 36 21 Tube Feeding 825 805 75 Other 800 800 Output: Urine 915 1220 465 Other: Voiding Method Indwelling Catheter Indwelling Catheter Indwelling Catheter # Bowel Movements 1 1 ABP, PAP, CO, CI - Last Documented Arterial Blood Pressure 84/75 - Exam General: Lying in bed and does not appear in acute distress. Lung: Intubated on a ventilator. Neuro: Limited. Patient is severely drowsy but is awake able to voice. He opens his eyes to command after marked multiple attempts. He followed few simple commands such as squeezing my fingers to command as well as wiggling the toes. Some of the workup during this hospital visit consisted of: As Stated earlier on initial presentation patient had low-grade fever on the first few days in the hospital stay and the Tmax was 102.1 and he had been afebrile since September 02, 2024. Oxygen during hospital admission was as low as 75% White blood cell is trending down initially it was 11.7 got as high as 26,000 and currently is 17.8. AST is 91 ALT 14 Vitamin B12 is 1236 TSH is 1.50 Ammonia level 17 On initial presentation patient had acute kidney in injury which resolved was 2.8 for now it is 1.10 CT head is reported as no acute intracranial process. Nonspecific white matter changes, likely secondary to chronic small vessel ischemic disease. Postsurgical changes with stimulator leads identified within the bilateral basal ganglia. I personally reviewed the CT and agree with the report. Sputum culture is Richelle albicans - Labs CBC & Chem 7: 09/06/24 04:30 09/06/24 10:01 Labs: Abnormal Lab Results - Last 24 Hours (Table) 09/05/24 09/05/24 09/06/24 Range/Units 14:30 17:41 00:18 WBC (3.8-10.6) k/uL RBC (4.30-5.90) m/uL Hgb (13.0-17.5) gm/dL Hct (39.0-53.0) % Neutrophils # (Manual) (1.3-7.7) k/uL Metamyelocytes # (Man) (0) k/uL Myelocytes # (Manual) (0) k/uL ABG pH (7.35-7.45) ABG pCO2 (35-45) mmHg ABG HCO3 (21-25) mmol/L ABG Total CO2 (19-24) mmol/L ABG O2 Saturation (94-97) % Potassium (3.5-5.1) mmol/L Chloride (98-107) mmol/L BUN (9-20) mg/dL Glucose (74-99) mg/dL POC Glucose (mg/dL) 130 H 122 H (70-110) mg/dL Calcium (8.4-10.2) mg/dL Vitamin B12 1236.0 H (200.0-944.0) pg/mL 09/06/24 09/06/24 09/06/24 Range/Units 04:30 04:30 05:33 WBC 23.3 H (3.8-10.6) k/uL RBC 3.95 L (4.30-5.90) m/uL Hgb 11.6 L (13.0-17.5) gm/dL Hct 35.1 L (39.0-53.0) % Neutrophils # (Manual) 20.20 H (1.3-7.7) k/uL Metamyelocytes # (Man) 0.23 H (0) k/uL Myelocytes # (Manual) 0.23 H (0) k/uL ABG pH (7.35-7.45) ABG pCO2 (35-45) mmHg ABG HCO3 (21-25) mmol/L ABG Total CO2 (19-24) mmol/L ABG O2 Saturation (94-97) % Potassium 3.3 L (3.5-5.1) mmol/L Chloride 109 H (98-107) mmol/L BUN 65 H (9-20) mg/dL Glucose 127 H (74-99) mg/dL POC Glucose (mg/dL) 128 H (70-110) mg/dL Calcium 6.9 L (8.4-10.2) mg/dL Vitamin B12 (200.0-944.0) pg/mL 09/06/24 09/06/24 09/06/24 Range/Units 05:49 10:01 12:59 WBC (3.8-10.6) k/uL RBC (4.30-5.90) m/uL Hgb (13.0-17.5) gm/dL Hct (39.0-53.0) % Neutrophils # (Manual) (1.3-7.7) k/uL Metamyelocytes # (Man) (0) k/uL Myelocytes # (Manual) (0) k/uL ABG pH 7.55 H (7.35-7.45) ABG pCO2 33 L (35-45) mmHg ABG HCO3 29 H (21-25) mmol/L ABG Total CO2 30 H (19-24) mmol/L ABG O2 Saturation 98.0 H (94-97) % Potassium 3.4 L (3.5-5.1) mmol/L Chloride (98-107) mmol/L BUN (9-20) mg/dL Glucose (74-99) mg/dL POC Glucose (mg/dL) 112 H (70-110) mg/dL Calcium (8.4-10.2) mg/dL Vitamin B12 (200.0-944.0) pg/mL Microbiology - Last 24 Hours (Table) 09/01/24 03:20 Blood Culture - Final Blood Assessment and Plan Assessment: This is a 63-year-old gentleman who presented emergency department because of nausea vomiting and shortness of breath.. On presentation patient. During the hospital stay on presentation he was hypoxic as well as the first few days during this hospital visit he had a fever with leukocytosis and it was felt possibly aspiration pneumonia. He continues to be altered even off sedation for the last 48 hours. Altered mental status and seems due to multifactorial: septic encephalopathy likely from aspiration pneumonia , as well as component of metabolic encephalopathy. CT of the head is unremarkable for any acute or subacute pro cess. Today mentation is somewhat better compared to past couple days and today he followed few simple commands opening his eyes, wiggling the toes and squeezing on the right hand. Acute acute kidney injury--resolved Fever and leukocytosis and it was felt patient likely has aspiration pneumonia and its likely due to his vomiting episode Slight transaminitis Acute hypoxemic and hypercapnic respiratory failure secondary to aspiration pneumonia the patient is intubated on the ventilator History of Parkinson disease status post Deep brain stimulator (DBS) History of hypertension Hyperlipidemia Plan: Modified the EEG for tomorrow since this does not seem to be seizures. Infection diseases consulted and we agreed to hold off on pursuing lumbar puncture since does not seem to be meningitis or encephalitis it was felt mostly aspiration pneumonia. Per the nurse patient is having recurrent diarrhea and pending C. difficile Patient is on his home medication of Sinemet 25-100 1 tablet 3 times daily Will defer the rest of the medical management to primary and other specialist Plan is discussed with the ICU nurse and infection disease team. Dr. Barker will resume neurology service tomorrow AM Time with Patient: Less than 30
[2024-09-06] MEDS: HEPARIN SODIUM,PORCINE 5,000 UNIT/ML 1 ML VIAL SQ SCH (15:20)
[2024-09-06 18:05] LABS: Glucose,Whole Blood 114 mg/dL (70-110)
[2024-09-06 18:36] LABS: Glucose,Whole Blood 106 mg/dL (70-110)
[2024-09-06] MEDS: ZINC OXIDE PASTE (Z-GUARD) 1 APPLIC TOPICAL SCH (22:01)
--- NOTE | 2024-09-06 22:04 | P.PN ---
Subjective Progress Note Date: 09/06/24 Principal diagnosis: Reason for follow-up is leukocytosis/aspiration pneumonia Patient is a 63-year-old male with a past medical history significant for hypertension presenting to the hospital for evaluation of nausea vomiting and increased work of breathing, CT of abdominal pelvis did shows evidence of bibasilar consolidation with air bronchogram and the patient had fever concerning for aspiration pneumonia, he did have elevated white count prompted this consultation. On today's evaluation that is 09/06/2024, Patient is afebrile patient is currently on ventilator FiO2 is currently stable at 40% no significant purulent secretions through the ET patient has developed diarrhea requiring of fecal management system placement, he is not requiring pressor support. Patient white count is up to 23.3 creatinine is 1.14 stool for C. difficile negative Objective - Vital Signs Vital signs: Vital Signs Temp 98.9 F 09/06/24 04:00 Pulse 89 09/06/24 11:31 Resp 27 H 09/06/24 11:00 BP 128/72 09/06/24 11:00 Pulse Ox 94 L 09/06/24 11:00 FiO2 40 09/06/24 11:20 Intake & Output 09/05/24 09/06/24 09/06/24 18:59 06:59 18:59 Intake Total 1977 2000 140 Output Total 915 1220 465 Balance 1063 781 -325 Weight 97.8 kg Intake: IV 353 396 65 0.9 kvo 80 160 50 Dextrose 5% in Water 1, 140 000 ml @ 10 mls/hr IV . Q24H TRIP Rx#:[id number] Piperacillin-Tazobactam 3 100 200 .375 gm In Sodium Chloride 0.9% 100 ml @ 25 mls/hr IVPB Q8H TRIP Rx#: [id number] Pressure Bag 33 36 15 Tube Feeding 825 805 75 Other 800 800 Output: Urine 915 1220 465 Other: Voiding Method Indwelling Catheter Indwelling Catheter Indwelling Catheter # Bowel Movements 1 1 ABP, PAP, CO, CI - Last Documented Arterial Blood Pressure 68/66 - Exam GENERAL DESCRIPTION: An elderly male intubated on the vent RESPIRATORY SYSTEM: Unlabored breathing , decreased breath sounds at bases HEART: S1 S2 regular rate and rhythm , ABDOMEN: Soft , no tenderness EXTREMITIES: No edema feet - Labs CBC & Chem 7: 09/06/24 04:30 09/06/24 19:45 Labs: Abnormal Lab Results - Last 24 Hours (Table) 09/05/24 09/05/24 09/06/24 Range/Units 14:30 17:41 00:18 WBC (3.8-10.6) k/uL RBC (4.30-5.90) m/uL Hgb (13.0-17.5) gm/dL Hct (39.0-53.0) % Neutrophils # (Manual) (1.3-7.7) k/uL Metamyelocytes # (Man) (0) k/uL Myelocytes # (Manual) (0) k/uL ABG pH (7.35-7.45) ABG pCO2 (35-45) mmHg ABG HCO3 (21-25) mmol/L ABG Total CO2 (19-24) mmol/L ABG O2 Saturation (94-97) % Potassium (3.5-5.1) mmol/L Chloride (98-107) mmol/L BUN (9-20) mg/dL Glucose (74-99) mg/dL POC Glucose (mg/dL) 130 H 122 H (70-110) mg/dL Calcium (8.4-10.2) mg/dL Vitamin B12 1236.0 H (200.0-944.0) pg/mL 09/06/24 09/06/24 09/06/24 Range/Units 04:30 04:30 05:33 WBC 23.3 H (3.8-10.6) k/uL RBC 3.95 L (4.30-5.90) m/uL Hgb 11.6 L (13.0-17.5) gm/dL Hct 35.1 L (39.0-53.0) % Neutrophils # (Manual) 20.20 H (1.3-7.7) k/uL Metamyelocytes # (Man) 0.23 H (0) k/uL Myelocytes # (Manual) 0.23 H (0) k/uL ABG pH (7.35-7.45) ABG pCO2 (35-45) mmHg ABG HCO3 (21-25) mmol/L ABG Total CO2 (19-24) mmol/L ABG O2 Saturation (94-97) % Potassium 3.3 L (3.5-5.1) mmol/L Chloride 109 H (98-107) mmol/L BUN 65 H (9-20) mg/dL Glucose 127 H (74-99) mg/dL POC Glucose (mg/dL) 128 H (70-110) mg/dL Calcium 6.9 L (8.4-10.2) mg/dL Vitamin B12 (200.0-944.0) pg/mL 09/06/24 09/06/24 Range/Units 05:49 10:01 WBC (3.8-10.6) k/uL RBC (4.30-5.90) m/uL Hgb (13.0-17.5) gm/dL Hct (39.0-53.0) % Neutrophils # (Manual) (1.3-7.7) k/uL Metamyelocytes # (Man) (0) k/uL Myelocytes # (Manual) (0) k/uL ABG pH 7.55 H (7.35-7.45) ABG pCO2 33 L (35-45) mmHg ABG HCO3 29 H (21-25) mmol/L ABG Total CO2 30 H (19-24) mmol/L ABG O2 Saturation 98.0 H (94-97) % Potassium 3.4 L (3.5-5.1) mmol/L Chloride (98-107) mmol/L BUN (9-20) mg/dL Glucose (74-99) mg/dL POC Glucose (mg/dL) (70-110) mg/dL Calcium (8.4-10.2) mg/dL Vitamin B12 (200.0-944.0) pg/mL Assessment and Plan (1) Leukocytosis Current Visit: Yes Status: Acute Code(s): D72.829 - ELEVATED WHITE BLOOD CELL COUNT, UNSPECIFIED SNOMED Code(s): 104128819 (2) Aspiration pneumonia Current Visit: Yes Status: Acute Code(s): J69.0 - PNEUMONITIS DUE TO INHALATION OF FOOD AND VOMIT SNOMED Code(s): 882282279 Plan: 1patient with initial presentation to hospital with nausea and vomiting patient also have a fever on admission that has resolved as of 09/01/[address] abdominal pelvis did not show any obstruction but evidence of bibasilar consolidation concerning for possible aspiration pneumonia sputum has been candidal because patient did have elevated white count could be related to his pneumonia possible aspiration etiology versus steroids that has been discontinued however did have worsening of his white count question of orophary ngeal candidiasis as the patient did have positive sputum with Richelle 2-patient also have developed diarrhea stool for C. difficile negative will add Questran for symptomatic relief 3-recommend to continue Zosyn at this point we will add Diflucan to cover for the possible oropharyngeal candidiasis Dictation was produced using [employer] software. please excuse any grammatical, word or spelling errors. Time with Patient: Less than 30
[2024-09-06] MEDS: FLUCONAZOLE 100 MG TAB NG-TUBE ONE (22:13)
[2024-09-07 00:32] LABS: Glucose,Whole Blood 110 mg/dL (70-110)
[2024-09-07] MEDS: PIPERACILLIN-TAZOBACTAM 3.375 GM in SODIUM CHLORIDE 0.9% 100 ML IVPB SCH (00:45)
[2024-09-07 05:20] LABS: Glucose,Whole Blood 101 mg/dL (70-110)
[2024-09-07 06:35] LABS: Basophils # (A) 0.1 k/uL (0-0.2); Basophils % (A) 1 %; Eosinophils # (A) 0.1 k/uL (0-0.7); Eosinophils % (A) 0 %; HCT 34.8 % (39.0-53.0); HGB 11.1 gm/dL (13.0-17.5); Lymphocytes # (A) 0.9 k/uL (1.0-4.8); Lymphocytes % (A) 5 %; MCH 28.1 pg (25.0-35.0); MCHC 31.8 g/dL (31.0-37.0); MCV 88.4 fL (80.0-100.0); Monocytes # (A) 0.8 k/uL (0-1.0); Monocytes % (A) 5 %; Neutrophils # (A) 15.4 k/uL (1.3-7.7); Neutrophils % (A) 89 %; Platelet Count 160 k/uL (150-450); RBC 3.94 m/uL (4.30-5.90); RDW 14.3 % (11.5-15.5); WBC 17.4 k/uL (3.8-10.6)
[2024-09-07 06:35] LABS: ABG Base Excess 6.9 mmol/L; ABG HCO3 30 mmol/L (21-25); ABG Oxygen Saturation 97.1 % (94-97); ABG PCO2 36 mmHg (35-45); ABG PH 7.53 (7.35-7.45); ABG PO2 84 mmHg (83-108); ABG TCO2 31 mmol/L (19-24); Allen Test Performed? Yes
[2024-09-07 06:47] LABS: African American GFR (CKD) 82 (>60 ml/min/1.73 sqM); Anion Gap 7 mmol/L; Blood Urea Nitrogen 61 mg/dL (9-20); Calcium 7.1 mg/dL (8.4-10.2); Carbon Dioxide 28 mmol/L (22-30); Chloride 111 mmol/L (98-107); Glucose 116 mg/dL (74-99); Non-African American GFR(CKD) 71 (>60 ml/min/1.73 sqM); Potassium 3.5 mmol/L (3.5-5.1); Sodium 146 mmol/L (137-145)
[2024-09-07] MEDS: POTASSIUM BICARBONATE/CIT AC 20 MEQ TABLET.EFF NG-TUBE SCH (07:03)
--- NOTE | 2024-09-07 07:53 | P.PN ---
Progress Note - Text Progress Note Date: 09/06/24 CHIEF COMPLAINT: Aspiration pneumonia HISTORY OF PRESENT ILLNESS: Patient remains in the ICU and on mechanical ventilation. Tube feedings are at goal via NG tube. Patient tolerating tube feeds. Patient has not had any bowel movements. PHYSICAL EXAM: VITAL SIGNS: Reviewed. GENERAL: no acute distress. Intubated ABDOMEN: Soft. Mildly distended. Nontender. ASSESSMENT: 1. Partial small bowel obstruction with right inguinal hernia containing small bowel 2. Aspiration pneumonia and hypoxia PLAN: -Vent management per pulmonary service -Continue conservative management for partial small bowel obstruction due to aspiration pneumonia and hypoxia -Continue tube feeds via NG tube -Will continue to follow closely Sergei Acevedo DO [facility] [phone]
--- NOTE | 2024-09-07 08:12 | XR ---
EXAMINATION TYPE: XR chest 1V portable DATE OF EXAM: 09/07/2024 CLINICAL HISTORY: Difficulty breathing progress study. TECHNIQUE: Single AP portable semiupright view of the chest is obtained. COMPARISON: Chest x-ray from one day earlier and older studies. FINDINGS: Stable endotracheal and orogastric tubes. Persistent bibasilar opacities and small left pleural effusion. Cardiac silhouette size stable and wi thin normal limits. Multilevel spurring in the thoracolumbar spine redemonstrated. Left neck stimulat or device again seen. IMPRESSION: Persistent and bibasilar acute infiltrates and/or atelectasis and small left pleural effu bradly. No significant change from one day earlier. [facility], , 09/07/2024 8:10 AM
--- NOTE | 2024-09-07 09:30 | P.PN ---
Subjective Progress Note Date: 09/07/24 On 09/07/2024, the patient is being seen for a follow-up. I the patient is known to have Parkinson's disease, quite extensive and the patient has a brain stimulator in place in addition to history of hypertension hyperlipidemia who presented to the emergency department with few days of nausea and emesis and shortness of breath. The patient was also having increased lethargy. In the emergency, the patient was in significant distress and the patient was placed on a BiPAP and a CAT scan of the abdomen and pelvis was obtained that showed bibasilar airspace disease consolidation with air bronchograms and small bilateral pleural effusion. There was also a right inguinal hernia containing loop of small bowel and possible partial small bowel obstruction. Normal caliber colon and mild fecal retention. Was also mild right-sided hydronephrosis and questionable obstruction at the level of the ureteropelvic junction. NG tube was inserted and there was a total of 1 L of fecal like material content evacuated. Subsequently, the patient went respiratory failure, while in the emergency, the patient was intubated and placed on a mechanical ventilator on 09/01/2024. For now, the patient remains intubated on the mechanical ventilator. This morning, the patient remains on assist-control mode rate of 24, tidal volume of 500, FiO2 40% with a PEEP of 5. Blood gases are still pending from this morning. The chest x-ray from today is showing a nerve stimulator over the left anterior chest area and some limited hazy bilateral pulmonary infiltrates especially on the right. The sputum sample collected on 09/01/2024 was consistent with Richelle and the patient remains on IV Zosyn. The patient has been off sedation for several days and unfortunately, the neurologic response has been suboptimal as the patient remains encephalopathic. CAT scan of the brain was done on 09/04/2024 that showed no acute abnormalities and the patient was seen by neurology. A lumbar puncture has not been done. The abdirashid haji remains on vital high-protein at rate of 75 cc an hour for nutritional support. IV fluids KVO. General surgical services on the case for the partial small bowel obstruction with right inguinal hernia and recommendations were conservative management for partial small bowel obstruction He is off propofol for 72 hours. EEG is to be done this morning. Objective - Vital Signs Vital signs: Vital Signs Temp 98.2 F 09/07/24 04:00 Pulse 87 09/07/24 06:00 Resp 24 09/07/24 06:00 BP 132/70 09/07/24 06:00 Pulse Ox 95 09/07/24 06:00 FiO2 40 09/07/24 04:50 Intake & Output 09/06/24 09/06/24 09/07/24 06:59 18:59 06:59 Intake Total 2000 1381 1956 Output Total 1220 1265 1250 Balance 781 116 706 Weight 97.8 kg 98.1 kg Intake: IV 396 156 256 0.9 kvo 160 120 120 Piperacillin-Tazobactam 3 200 100 .375 gm In Sodium Chloride 0.9% 100 ml @ 25 mls/hr IVPB Q8H [facility] Rx#: [id number] Pressure Bag 36 36 36 Tube Feeding 805 825 900 Other 800 400 800 Output: Urine 1220 1265 1250 Other: Voiding Method Indwelling Catheter Indwelling Catheter Indwelling Catheter # Bowel Movements 1 ABP, PAP, CO, CI - Last Documented Arterial Blood Pressure 140/51 - Exam No acute distress, currently with an orally placed endotracheal tube, and orogastric tube. The patient has been off of sedation for a number of days. HEENT examination is grossly unremarkable. Neck supple. Full range of motion. No adenopathy thyromegaly or neck vein distention. Cardiovascular examination reveals regular rhythm rate. S1-S2 normal. No S3 or S4. No discernible murmur noted. Lungs reveal mostly clear breath sounds. Scattered rhonchi are noted. No wheezes or crackles. Breath sounds are equal. Abdomen soft with bowel sounds. No masses or tenderness. Extremities are intact. No cyanosis clubbing or edema. Skin is without rash or lesion. Neurologic examination is unchanged. The patient is poorly responsive. - Labs CBC & Chem 7: 09/07/24 05:45 09/07/24 05:45 Labs: Abnormal Lab Results - Last 24 Hours (Table) 09/06/24 09/06/24 09/06/24 Range/Units 10:01 12:59 18:03 Potassium 3.4 L (3.5-5.1) mmol/L POC Glucose (mg/dL) 112 H 114 H (70-110) mg/dL Microbiology - Last 24 Hours (Table) 09/01/24 03:20 Blood Culture - Final Blood Assessment and Plan Plan: Acute hypoxemic and hypercapnic respiratory failure, secondary to bilateral lower lobe pneumonia likely of a aspiration, requiring intubation and mechanical ventilation as of 09/01/2024. For now, the patient remains intubated on mechanical ventilator. Chest x-ray shows limited infiltration of lung base bilaterally the patient remains on IV Zosyn. Diminished level of consciousness, rule out metabolic/septic. Currently being evaluated by neurology. CT scan negative. The patient remains off sedation Possible partial small bowel obstruction, on CT scan with a small right inguinal hernia, recovered and the patient is currently receiving enteral feeding for n utritional support and the patient is on vital high-protein Acute leukocytosis Acute kidney injury, improving Right-sided hydronephrosis, urology on the case and no intervention has been recommended. This is to be followed as the patient's renal function continues to improve. History of hypertension. History of hyperlipidemia. History of Parkinson's disease Plan: Limited recovery in terms of mentation and the patient has been off propofol for the past 72 hours Reviewed the chest x-ray and blood gas from today We will drop respiratory rate down to 16 as the patient has a component of metabolic alkalosis Continues to have diminished level of consciousness although there has been some response over the past 72 hours while off propofol Continue antibiotics and the patient remains on IV Zosyn continue Diflucan Continue EN with vitall HP franky for C diff is negative Continue free water flushes On today's evaluation, I noted that the patient is gradually arousing. EEG is in progress. He was able to follow some simple commands to me today. Nevertheless, he remains profoundly weak, unable to raise his head of the bed. Unable to cough. Will give the patient 24 hours. Chest x-ray findings are stable. Will continue with supportive care. Critical care evaluation, more than 30 minutes. Time with Patient: Greater than 30
[2024-09-07 12:12] LABS: Glucose,Whole Blood 108 mg/dL (70-110)
--- NOTE | 2024-09-07 12:13 | P.PN ---
Subjective Patient is seen for follow-up for acute kidney injury. Serum sodium remains at 146. Status post D5W Urine output at 100-1 25 cc/h. Serum creatinine decreased to 1.0 today. Objective - Vital Signs Vital signs: Vital Signs Temp 98.8 F 09/07/24 08:00 Pulse 84 09/07/24 11:57 Resp 24 09/07/24 09:00 BP 131/72 09/07/24 09:00 Pulse Ox 91 L 09/07/24 09:00 FiO2 40 09/07/24 11:55 Intake & Output 09/06/24 09/07/24 09/07/24 18:59 06:59 18:59 Intake Total 1381 1956 114 Output Total 1265 1250 300 Balance 116 706 -186 Weight 98.1 kg Intake: IV 156 256 39 0.9 kvo 120 120 30 Piperacillin-Tazobactam 3 100 .375 gm In Sodium Chloride 0.9% 100 ml @ 25 mls/hr IVPB Q8H [facility] Rx#: [id number] Pressure Bag 36 36 9 Tube Feeding 825 900 75 Other 400 800 Output: Urine 1265 1250 300 Other: Voiding Method Indwelling Catheter Indwelling Catheter Indwelling Catheter ABP, PAP, CO, CI - Last Documented Arterial Blood Pressure 138/54 - Exam Patient remains on the vent. Examination of the heart S1 and S2 Examination of the lungs bilateral breath sounds are heard Abdomen is soft nontender Examination of lower extremities shows 1+ edema and scrotal edema - Labs CBC & Chem 7: 09/07/24 05:45 09/07/24 05:45 Labs: Abnormal Lab Results - Last 24 Hours (Table) 09/06/24 09/06/24 09/07/24 Range/Units 12:59 18:03 05:45 WBC (3.8-10.6) k/uL RBC (4.30-5.90) m/uL Hgb (13.0-17.5) gm/dL Hct (39.0-53.0) % Neutrophils # (1.3-7.7) k/uL Lymphocytes # (1.0-4.8) k/uL ABG pH (7.35-7.45) ABG HCO3 (21-25) mmol/L ABG Total CO2 (19-24) mmol/L ABG O2 Saturation (94-97) % Hemoglobin (13.0-17.5) gm/dL Sodium 146 H (137-145) mmol/L Chloride 111 H (98-107) mmol/L BUN 61 H (9-20) mg/dL Glucose 116 H (74-99) mg/dL POC Glucose (mg/dL) 112 H 114 H (70-110) mg/dL Calcium 7.1 L (8.4-10.2) mg/dL 09/07/24 09/07/24 Range/Units 05:45 06:32 WBC 17.4 H (3.8-10.6) k/uL RBC 3.94 L (4.30-5.90) m/uL Hgb 11.1 L (13.0-17.5) gm/dL Hct 34.8 L (39.0-53.0) % Neutrophils # 15.4 H (1.3-7.7) k/uL Lymphocytes # 0.9 L (1.0-4.8) k/uL ABG pH 7.53 H (7.35-7.45) ABG HCO3 30 H (21-25) mmol/L ABG Total CO2 31 H (19-24) mmol/L ABG O2 Saturation 97.1 H (94-97) % Hemoglobin 11.6 L (13.0-17.5) gm/dL Sodium (137-145) mmol/L Chloride (98-107) mmol/L BUN (9-20) mg/dL Glucose (74-99) mg/dL POC Glucose (mg/dL) (70-110) mg/dL Calcium (8.4-10.2) mg/dL Microbiology - Last 24 Hours (Table) 09/01/24 03:20 Blood Culture - Final Blood Assessment and Plan Assessment: 1. Acute kidney injury ATN currently nonoliguric secondary to sepsis and hypotension, improving. Solitary functioning kidney which is the left kidney. Patient has chronic hydronephrosis of right kidney with possibly minimal function. 2. Right hydronephrosis noted. This appears to be chronic. Urology on consult. 3. Acute hypoxic respiratory failure currently on on the ventilator. 4. Aspiration pneumonia 5. History of Parkinson's disease 6. Metabolic acidosis secondary to acute kidney injury 7. Hypokalemia status post replacement Plan: Continue with free water with tube feedings Continue with antibiotics Repeat labs in a.m.
--- NOTE | 2024-09-07 12:33 | EEG ---
DATE OF SERVICE: 09/07/2024 ELECTROENCEPHALOGRAM REPORT PREAMBLE: This is a 63-year-old male, came with altered mental status, rule out seizure. The patient does have history of hypertension and Parkinson disease. CURRENT MEDICATIONS: 1. Atenolol. 2. Lipitor. 3. Questran. 4. Diflucan. 5. Dilaudid. 6. Reglan. 7. NovoLog. 8. Protonix. 9. Piperacillin. EEG FINDINGS: This is a 21-channel digital EEG recorded with video component, utilizing 10/20 international system with referential and bipolar montages. The recording starts and continues with presence of moderate to low amplitude mixed frequencies of 4-6 hertz theta with some intermittent 2 hertz delta slowing in bihemispheric region. Background does not seem to be reactive to eye opening or closing. Photic driving response was not seen. At the end of the study, the geotechnicial properties technician tried to open the eyes, and the patient to squeeze it shut, during which time there was slightly better appearing background rhythm seen rarely. No focal or generalized epileptiform activity was seen. IMPRESSION: An abnormal EEG due to background slowing of moderate degree. This is suggestive of generalized cerebral dysfunction as can be seen with toxic metabolic encephalopathy, or related to diffuse structural brain abnormality. Clinical correlation is recommended. No epileptiform activity was seen. MMED / JANNETHN: [id number] / [id number]
[2024-09-07] MEDS: HYDROCORTISONE SUCCINATE 100 MG/2 ML VIAL IV SCH (13:04)
[2024-09-07] MEDS: FLUCONAZOLE 100 MG TAB PO SCH (13:05)
[2024-09-07] MEDS: CHOLESTYRAMINE (WITH SUGAR) 4 GM PACKET PO SCH (13:05)
--- NOTE | 2024-09-07 14:19 | P.PN ---
Subjective Progress Note Date: 09/07/24 Patient was initially seen by Dr. Erwin Neal. Please refer to his note for details. Patient is a 63-year-old male with altered mental status and felt aspiration pneumonia. Does not appear meningoencephalitis as per Dr. Neal. I spoke to ICU staff, it appears patient is slightly improved as compared to how his examination was 3 days ago, but still not with it. Patient is intubated on the mechanical ventilator. Patient not on any IV drips. No seizure-like activity. Please refer to examination below. Some of the workup during this hospital visit consisted of: As Stated earlier on initial presentation patient had low-grade fever on the first few days in the hospital stay and the Tmax was 102.1 and he had been afebrile since September 02, 2024. Oxygen during hospital admission was as low as 75% White blood cell is trending down initially it was 11.7 got as high as 26,000 and currently is 17.8. AST is 91 ALT 14 Vitamin B12 is 1236 TSH is 1.50 Ammonia level 17 On initial presentation patient had acute kidney in injury which resolved was 2.8 for now it is 1.10 CT head is reported as no acute intracranial process. Nonspecific white matter changes, likely secondary to chronic small vessel ischemic disease. Postsurgical changes with stimulator leads identified within the bilateral basal ganglia. I personally reviewed the CT and agree with the report. Sputum culture is Richelle albicans Objective - Vital Signs Vital signs: Vital Signs Temp 99.1 F 09/07/24 12:00 Pulse 82 09/07/24 13:00 Resp 27 H 09/07/24 13:00 BP 144/77 09/07/24 13:00 Pulse Ox 96 09/07/24 13:00 FiO2 40 09/07/24 12:00 Intake & Output 09/06/24 09/07/24 09/07/24 18:59 06:59 18:59 Intake Total 1381 1956 166 Output Total 1265 1250 650 Balance 116 706 -484 Weight 98.1 kg 98.1 kg Intake: IV 156 256 91 0.9 kvo 120 120 70 Piperacillin-Tazobactam 3 100 .375 gm In Sodium Chloride 0.9% 100 ml @ 25 mls/hr IVPB Q8H [facility] Rx#: [id number] Pressure Bag 36 36 21 Tube Feeding 825 900 75 Other 400 800 Output: Urine 1265 1250 650 Other: Voiding Method Indwelling Catheter Indwelling Catheter Indwelling Catheter ABP, PAP, CO, CI - Last Documented Arterial Blood Pressure 169/63 - Exam On examination patient is laying in the bed, in no acute distress. Patient is intubated on mechanical ventilation. Patient is not trying to speak, lays listless. On cranial examination pupils are equal, round and reacting, extraocular muscles appears intact. However he is not clearly tracking with his eyes. He has some chin tremors noticed. No obvious seizure-like activity. Patient slightly wiggles his fingers on commands, and wiggles his toes bilaterally. Did not move his arms or legs proximally. Reflexes are diminished. Tone is equal. Patient has had peripheral edema. Abdomen is soft nontender. Chest appears clear to auscultation. No crackles or murmurs. - Labs CBC & Chem 7: 09/07/24 05:45 09/07/24 05:45 Labs: Abnormal Lab Results - Last 24 Hours (Table) 09/06/24 09/07/24 09/07/24 Range/Units 18:03 05:45 05:45 WBC 17.4 H (3.8-10.6) k/uL RBC 3.94 L (4.30-5.90) m/uL Hgb 11.1 L (13.0-17.5) gm/dL Hct 34.8 L (39.0-53.0) % Neutrophils # 15.4 H (1.3-7.7) k/uL Lymphocytes # 0.9 L (1.0-4.8) k/uL ABG pH (7.35-7.45) ABG HCO3 (21-25) mmol/L ABG Total CO2 (19-24) mmol/L ABG O2 Saturation (94-97) % Hemoglobin (13.0-17.5) gm/dL Sodium 146 H (137-145) mmol/L Chloride 111 H (98-107) mmol/L BUN 61 H (9-20) mg/dL Glucose 116 H (74-99) mg/dL POC Glucose (mg/dL) 114 H (70-110) mg/dL Calcium 7.1 L (8.4-10.2) mg/dL 09/07/24 Range/Units 06:32 WBC (3.8-10.6) k/uL RBC (4.30-5.90) m/uL Hgb (13.0-17.5) gm/dL Hct (39.0-53.0) % Neutrophils # (1.3-7.7) k/uL Lymphocytes # (1.0-4.8) k/uL ABG pH 7.53 H (7.35-7.45) ABG HCO3 30 H (21-25) mmol/L ABG Total CO2 31 H (19-24) mmol/L ABG O2 Saturation 97.1 H (94-97) % Hemoglobin 11.6 L (13.0-17.5) gm/dL Sodium (137-145) mmol/L Chloride (98-107) mmol/L BUN (9-20) mg/dL Glucose (74-99) mg/dL POC Glucose (mg/dL) (70-110) mg/dL Calcium (8.4-10.2) mg/dL Microbiology - Last 24 Hours (Table) 09/01/24 03:20 Blood Culture - Final Blood Assessment and Plan Assessment: This is a 63-year-old gentleman who presented emergency department because of nausea vomiting and shortness of breath.. During the hospital stay on presentation he was hypoxic as well as the first few days during this hospital visit he had a fever with leukocytosis and it was felt possibly aspiration pn eumonia. He continues to be altered even off sedation for the last 48 hours. His mentation is slightly improved, as he is following commands minimally. Altered mental status and seems due to multifactorial: septic encephalopathy likely from aspiration pneumonia , as well as component of metabolic encephalopathy. CT of the head is unremarkable for any acute or subacute process. Acute acute kidney injury--resolved Fever and leukocytosis and it was felt patient likely has aspiration pneumonia and its likely due to his vomiting episode Slight transaminitis Acute hypoxemic and hypercapnic respiratory failure secondary to aspiration pneumonia the patient is intubated on the ventilator History of Parkinson disease status post Deep brain stimulator (DBS) History of hypertension Hyperlipidemia Plan: EEG was performed, which was abnormal due to background slowing of moderate degree, suggestive of generalized cerebral dysfunction as can be seen with toxic metabolic encephalopathy or due to diffuse structural brain abnormality. No foc al, lateralized or epileptiform activity was seen. Infection diseases consulted and Dr. Neal discussed with ID and agreed to hold off on pursuing lumbar puncture since does not seem to be meningitis or encephalitis it was felt mostly aspiration pneumonia. Per the nurse patient is having recurrent diarrhea and pending C. difficile Patient is on his home medication of Sinemet 25-100 1 tablet 3 times daily Will defer the rest of the medical management to primary and other specialist Neurology will follow clinically.
[2024-09-07 18:23] LABS: Glucose,Whole Blood 122 mg/dL (70-110)
--- NOTE | 2024-09-07 23:17 | P.PN ---
Subjective Progress Note Date: 09/07/24 Patient evaluated today in the intensive care unit remains on the mechanical ventilator. Repeat chest x-ray today shows persistent multifocal acute infiltrate. Patient remains on a course of IV Zosyn with concern for aspiration pneumonia. Patient has been off sedation for over 48 hours now without im provement in his mentation neurology was consulted for the same. EEG has been ordered. Additionally neurology had recommended infectious disease consultation secondary to the elevated white blood cell count currently today to 17.8. His renal function has improved. He continues on IV hydrocortisone. 09/06/2024 Patient evaluated in follow-up in the intensive care unit. Chest x-ray shows persistent bilateral multifocal infiltrates. White blood cell count today 23.3, potassium 3.3, BUN of 65, creatinine 1.14. Patient is currently being weaned off the IV solucortef. He has had multiple episodes of loose stools and C. difficile will be checked. He remains off sedation is slightly more responsive today currently with no plans for lumbar puncture but will be going for an EEG tomorrow. 09/07/2024 Patient is seen in follow-up today continues to be in the ICU with neurology following scheduled for EEG. Patient is currently sitting up remains on mechanical ventilation off sedation and is following some commands for me on exam. Awaiting further neurological examination. FiO2 is currently 40% with a PEEP of 5. Nephrology following as well as kidney functions are improving with a creatinine of 1.09, potassium is 3.5 and sodium slightly elevated at 146. Continue with tube feeds and free water flushes and will follow-up with repeat labs. Overall prognosis is guarded at this time. Continue with antibiotics as well. Infectious diseases following. Unable to complete a review of systems at this time as patient is currently intubated. Patient is sitting up and awake following some commands GENERAL: This is a 63-year-old male who is intubated and off sedation, sitting up following some commands, elderly appearing, well-developed, obese HEENT: Pupils are round and equally reacting to light. EOMI. No scleral icterus. No conjunctival pallor. Normocephalic, atraumatic. No pharyngeal erythema. No thyromegaly. CARDIOVASCULAR: S1 and S2 muffled PULMONARY: Diminished breath sounds bilaterally otherwise chest is clear to auscultation, no wheezing , no crackles. ABDOMEN: Soft, obese, nontender, nondistended, normoactive bowel sounds. No palpable organomegaly. MUSCULOSKELETAL: No joint swelling or deformity. EXTREMITIES: No cyanosis, clubbing, edematous and extremely weak NEUROLOGICAL: Gross neurological examination did not reveal any focal deficits. Unable to completely assess secondary to continued mechanical ventilation SKIN: No rashes. no petechiae. Assessment Acute hypoxic respiratory failure requiring intubation and mechanical ventilation Bibasilar pneumonia suspicious for aspiration pneumonia partial small bowel obstruction and right inguinal hernia with loops of small bowel septic shock secondary to above, resolved Acute kidney injury, improving Marked right hydronephrosis, evaluated by urologist, appears chronic Leukocytosis could be steroid induced vs infection. History of Parkinson disease Stage II pressure injury to the coccyx and hospital-acquired wound care was consulted GI prophylaxis DVT prophylaxis Full code Plan Continue in the ICU with pulmonary/critical care team consult Continue with mechanical ventilation as per ICU team. Off sedation and is awake following some commands awaiting EEG and further neurology evaluation ID following and continued on zosyn, discussing possibly discontinuing as patient has received adequate antibiotic therapy IV solucortef to be discontinued Urology team consulted for his right hydronephrosis following along. No plans for surgical intervention at this time and most likely chronic. General Surgery consulted for concerns for partial small bowel obstruction with no need for surgical intervention currently. Currently having multiple episodes of diarrhea and C. difficile has been ordered and pending. Repeat labs in the AM Overall prognosis guarded at this time The impression and plan of care has been dictated by Maye Johnson, Nurse Practitioner as directed. Dr. Frank MD I have performed a history and physical examination and medical decision making of this patient, discussed the same with the dictator, and agree with the dictators assessment and plan as written, documented as a scribe. Based on total visit time, I have performed more than 50% of this visit. Objective - Vital Signs Vital signs: Vital Signs Temp 98.2 F 09/07/24 04:00 Pulse 84 09/07/24 08:28 Resp 24 09/07/24 07:00 BP 122/65 09/07/24 07:00 Pulse Ox 92 L 09/07/24 07:00 FiO2 40 09/07/24 08:18 Intake & Output 09/06/24 09/07/24 09/07/24 18:59 06:59 18:59 Intake Total 1381 1956 88 Output Total 1265 1250 100 Balance 116 706 -12 Weight 98.1 kg Intake: IV 156 256 13 0.9 kvo 120 120 10 Piperacillin-Tazobactam 3 100 .375 gm In Sodium Chloride 0.9% 100 ml @ 25 mls/hr IVPB Q8H [facility] Rx#: [id number] Pressure Bag 36 36 3 Tube Feeding 825 900 75 Other 400 800 Output: Urine 1265 1250 100 Other: Voiding Method Indwelling Catheter Indwelling Catheter ABP, PAP, CO, CI - Last Documented Arterial Blood Pressure 137/53 - Labs CBC & Chem 7: 09/07/24 05:45 09/07/24 05:45 Labs: Abnormal Lab Results - Last 24 Hours (Table) 09/06/24 09/06/24 09/06/24 Range/Units 10:01 12:59 18:03 WBC (3.8-10.6) k/uL RBC (4.30-5.90) m/uL Hgb (13.0-17.5) gm/dL Hct (39.0-53.0) % Neutrophils # (1.3-7.7) k/uL Lymphocytes # (1.0-4.8) k/uL ABG pH (7.35-7.45) ABG HCO3 (21-25) mmol/L ABG Total CO2 (19-24) mmol/L ABG O2 Saturation (94-97) % Hemoglobin (13.0-17.5) gm/dL Sodium (137-145) mmol/L Potassium 3.4 L (3.5-5.1) mmol/L Chloride (98-107) mmol/L BUN (9-20) mg/dL Glucose (74-99) mg/dL POC Glucose (mg/dL) 112 H 114 H (70-110) mg/dL Calcium (8.4-10.2) mg/dL 09/07/24 09/07/24 09/07/24 Range/Units 05:45 05:45 06:32 WBC 17.4 H (3.8-10.6) k/uL RBC 3.94 L (4.30-5.90) m/uL Hgb 11.1 L (13.0-17.5) gm/dL Hct 34.8 L (39.0-53.0) % Neutrophils # 15.4 H (1.3-7.7) k/uL Lymphocytes # 0.9 L (1.0-4.8) k/uL ABG pH 7.53 H (7.35-7.45) ABG HCO3 30 H (21-25) mmol/L ABG Total CO2 31 H (19-24) mmol/L ABG O2 Saturation 97.1 H (94-97) % Hemoglobin 11.6 L (13.0-17.5) gm/dL Sodium 146 H (137-145) mmol/L Potassium (3.5-5.1) mmol/L Chloride 111 H (98-107) mmol/L BUN 61 H (9-20) mg/dL Glucose 116 H (74-99) mg/dL POC Glucose (mg/dL) (70-110) mg/dL Calcium 7.1 L (8.4-10.2) mg/dL Microbiology - Last 24 Hours (Table) 09/01/24 03:20 Blood Culture - Final Blood
[2024-09-07 23:24] LABS: Glucose,Whole Blood 125 mg/dL (70-110)
[2024-09-08 04:48] LABS: ABG Base Excess 4.7 mmol/L; ABG HCO3 29 mmol/L (21-25); ABG Oxygen Saturation 97.4 % (94-97); ABG PCO2 43 mmHg (35-45); ABG PH 7.45 (7.35-7.45); ABG PO2 93 mmHg (83-108); ABG TCO2 31 mmol/L (19-24)
--- NOTE | 2024-09-08 04:56 | P.PN ---
Subjective Progress Note Date: 09/07/24 Principal diagnosis: Reason for follow-up is leukocytosis/aspiration pneumonia Patient is a 63-year-old male with a past medical history significant for hypertension presenting to the hospital for evaluation of nausea vomiting and increased work of breathing, CT of abdominal pelvis did shows evidence of bibasilar consolidation with air bronchogram and the patient had fever concerning for aspiration pneumonia, he did have elevated white count prompted this consultation. On today's evaluation that is 09/07/2023, patient has been afebrile, patient is on the ventilator FiO2 is currently stable at 40% no significant purulent secretions to the ET, the patient is hemodynamically stable having diarrhea but the patient did have a fecal management system. Patient white count is down to 17.4 creatinine is 1.09 Objective - Vital Signs Vital signs: Vital Signs Temp 99.1 F 09/07/24 12:00 Pulse 77 09/07/24 14:00 Resp 25 H 09/07/24 14:00 BP 153/84 09/07/24 14:00 Pulse Ox 94 L 09/07/24 14:00 FiO2 40 09/07/24 12:00 Intake & Output 09/06/24 09/07/24 09/07/24 18:59 06:59 18:59 Intake Total 1381 1956 179 Output Total 1265 1250 650 Balance 116 706 -471 Weight 98.1 kg 98.1 kg Intake: IV 156 256 104 0.9 kvo 120 120 80 Piperacillin-Tazobactam 3 100 .375 gm In Sodium Chloride 0.9% 100 ml @ 25 mls/hr IVPB Q8H [facility] Rx#: [id number] Pressure Bag 36 36 24 Tube Feeding 825 900 75 Other 400 800 Output: Urine 1265 1250 650 Other: Voiding Method Indwelling Catheter Indwelling Catheter Indwelling Catheter ABP, PAP, CO, CI - Last Documented Arterial Blood Pressure 139/52 - Exam GENERAL DESCRIPTION: An elderly male intubated on the vent RESPIRATORY SYSTEM: Unlabored breathing , decreased breath sounds at bases HEART: S1 S2 regular rate and rhythm , ABDOMEN: Soft , no tenderness EXTREMITIES: No edema feet - Labs CBC & Chem 7: 09/07/24 05:45 09/07/24 05:45 Labs: Abnormal Lab Results - Last 24 Hours (Table) 09/06/24 09/07/24 09/07/24 Range/Units 18:03 05:45 05:45 WBC 17.4 H (3.8-10.6) k/uL RBC 3.94 L (4.30-5.90) m/uL Hgb 11.1 L (13.0-17.5) gm/dL Hct 34.8 L (39.0-53.0) % Neutrophils # 15.4 H (1.3-7.7) k/uL Lymphocytes # 0.9 L (1.0-4.8) k/uL ABG pH (7.35-7.45) ABG HCO3 (21-25) mmol/L ABG Total CO2 (19-24) mmol/L ABG O2 Saturation (94-97) % Hemoglobin (13.0-17.5) gm/dL Sodium 146 H (137-145) mmol/L Chloride 111 H (98-107) mmol/L BUN 61 H (9-20) mg/dL Glucose 116 H (74-99) mg/dL POC Glucose (mg/dL) 114 H (70-110) mg/dL Calcium 7.1 L (8.4-10.2) mg/dL 09/07/24 Range/Units 06:32 WBC (3.8-10.6) k/uL RBC (4.30-5.90) m/uL Hgb (13.0-17.5) gm/dL Hct (39.0-53.0) % Neutrophils # (1.3-7.7) k/uL Lymphocytes # (1.0-4.8) k/uL ABG pH 7.53 H (7.35-7.45) ABG HCO3 30 H (21-25) mmol/L ABG Total CO2 31 H (19-24) mmol/L ABG O2 Saturation 97.1 H (94-97) % Hemoglobin 11.6 L (13.0-17.5) gm/dL Sodium (137-145) mmol/L Chloride (98-107) mmol/L BUN (9-20) mg/dL Glucose (74-99) mg/dL POC Glucose (mg/dL) (70-110) mg/dL Calcium (8.4-10.2) mg/dL Microbiology - Last 24 Hours (Table) 09/01/24 03:20 Blood Culture - Final Blood Assessment and Plan (1) Leukocytosis Current Visit: Yes Status: Acute Code(s): D72.829 - ELEVATED WHITE BLOOD CELL COUNT, UNSPECIFIED SNOMED Code(s): 431050745 (2) Aspiration pneumonia Current Visit: Yes Status: Acute Code(s): J69.0 - PNEUMONITIS DUE TO INHALATION OF FOOD AND VOMIT SNOMED Code(s): 347548575 Plan: 1patient with initial presentation to hospital with nausea and vomiting patient also have a fever on admission that has resolved as of 09/01/[address] abdominal pelvis did not show any obstruction but evidence of bibasilar consolidation concerning for possible aspiration pneumonia sputum has been candidal because patient did have elevated white count could be related to his pneumonia possible aspiration etiology versus steroids that has been discontinued however did have worsening of his white count question of oropharyngeal candidiasis as the patient did have positive sputum with Richelle 2-patient stool for C. difficile negative continue with Questran for symptomatic relief 3-r patient is afebrile white count is trending down continue with Zosyn and Diflucan to cover for the possible oropharyngeal candidiasis Dictation was produced using [employer] dictation software. please excuse any grammatical, word or spelling errors. Time with Patient: Less than 30
[2024-09-08 05:12] LABS: Glucose,Whole Blood 131 mg/dL (70-110)
[2024-09-08 05:27] LABS: HCT 32.2 % (39.0-53.0); HGB 10.5 gm/dL (13.0-17.5); MCH 29.4 pg (25.0-35.0); MCHC 32.6 g/dL (31.0-37.0); MCV 90.2 fL (80.0-100.0); Mean Platelet Volume 8.7; Platelet Count 162 k/uL (150-450); RBC 3.57 m/uL (4.30-5.90); WBC 16.1 k/uL (3.8-10.6)
[2024-09-08 05:31] LABS: Allen Test Performed? NO
[2024-09-08 05:53] LABS: African American GFR (CKD) 80 (>60 ml/min/1.73 sqM); Anion Gap 3 mmol/L; Blood Urea Nitrogen 56 mg/dL (9-20); Calcium 7.2 mg/dL (8.4-10.2); Carbon Dioxide 29 mmol/L (22-30); Chloride 112 mmol/L (98-107); Glucose 130 mg/dL (74-99); Non-African American GFR(CKD) 69 (>60 ml/min/1.73 sqM); Potassium 3.6 mmol/L (3.5-5.1); Sodium 144 mmol/L (137-145)
--- NOTE | 2024-09-08 07:40 | P.PN ---
Progress Note - Text Progress Note Date: 09/07/24 CHIEF COMPLAINT: Aspiration pneumonia HISTORY OF PRESENT ILLNESS: Patient remains in the ICU and on mechanical ventilation. Tube feedings are at goal via NG tube. Patient tolerating tube feeds. Patient has not had any bowel movements. PHYSICAL EXAM: VITAL SIGNS: Reviewed. GENERAL: no acute distress. Intubated ABDOMEN: Soft. Mildly distended. Nontender. ASSESSMENT: 1. Partial small bowel obstruction with right inguinal hernia containing small bowel 2. Aspiration pneumonia and hypoxia PLAN: -Vent management per pulmonary service -Continue conservative management for partial small bowel obstruction due to aspiration pneumonia and hypoxia -Continue tube feeds via NG tube -Will continue to follow closely Sergei Acevedo DO [facility] [phone]
--- NOTE | 2024-09-08 08:09 | XR ---
EXAMINATION TYPE: XR chest 1V portable DATE OF EXAM: 09/08/2024 CLINICAL HISTORY: Difficulty breathing progress study. TECHNIQUE: Single AP portable semiupright view of the chest is obtained. COMPARISON: Chest x-ray from one day earlier and older studies. FINDINGS: Stable endotracheal and orogastric tubes. Persistent bibasilar opacities and small left pleural effusion. Cardiac silhouette size stable and wi thin normal limits. Multilevel spurring in the thoracolumbar spine redemonstrated. Left thoracic stim ulator device again seen. IMPRESSION: Persistent bibasilar acute infiltrates and/or atelectasis and small left pleural effusio n. No significant change from one day earlier. [facility], , 09/08/2024 8:07 AM
[2024-09-08] MEDS: FUROSEMIDE 10 MG/ML 4 ML VIAL IV STA (08:50)
[2024-09-08 09:28] LABS: Band Neutrophils % 2 %; Eosinophils # (M) 0.16 k/uL (0-0.7); Lymphocytes # (M) 1.77 k/uL (1.0-4.8); Metamyelocytes # (M) 0.32 k/uL (0); Metamyelocytes % 2 %; Monocytes # (M) 0.97 k/uL (0-1.0); Myelocytes # (M) 0.16 k/uL (0); Myelocytes % 1 %; Neutrophils % (M) 78 %; Nucleated Red Blood Cells 0 /100 WBC (0-0); Total Cells Counted 200
[2024-09-08 09:39] LABS: ABG Base Excess 5.6 mmol/L; ABG HCO3 30 mmol/L (21-25); ABG Oxygen Saturation 97.6 % (94-97); ABG PCO2 40 mmHg (35-45); ABG PH 7.48 (7.35-7.45); ABG PO2 94 mmHg (83-108); ABG TCO2 31 mmol/L (19-24)
[2024-09-08 09:42] LABS: Toxic Granulation Present
[2024-09-08] MEDS ORDERED: IPRATROPIUM-ALBUTEROL 3 ML NEB INHALATION PRN (09:55)
--- NOTE | 2024-09-08 10:13 | P.PN ---
Subjective Progress Note Date: 09/08/24 On 09/07/2024, the patient is being seen for a follow-up. I the patient is known to have Parkinson's disease, quite extensive and the patient has a brain stimulator in place in addition to history of hypertension hyperlipidemia who presented to the emergency department with few days of nausea and emesis and shortness of breath. The patient was also having increased lethargy. In the emergency, the patient was in significant distress and the patient was placed on a BiPAP and a CAT scan of the abdomen and pelvis was obtained that showed bibasilar airspace disease consolidation with air bronchograms and small bilateral pleural effusion. There was also a right inguinal hernia containing loop of small bowel and possible partial small bowel obstruction. Normal caliber colon and mild fecal retention. Was also mild right-sided hydronephrosis and questionable obstruction at the level of the ureteropelvic junction. NG tube was inserted and there was a total of 1 L of fecal like material content evacuated. Subsequently, the patient went respiratory failure, while in the emergency, the patient was intubated and placed on a mechanical ventilator on 09/01/2024. For now, the patient remains intubated on the mechanical ventilator. This morning, the patient remains on assist-control mode rate of 24, tidal volume of 500, FiO2 40% with a PEEP of 5. Blood gases are still pending from this morning. The chest x-ray from today is showing a nerve stimulator over the left anterior chest area and some limited hazy bilateral pulmonary infiltrates especially on the right. The sputum sample collected on 09/01/2024 was consistent with Richelle and the patient remains on IV Zosyn. The patient has been off sedation for several days and unfortunately, the neurologic response has been suboptimal as the patient remains encephalopathic. CAT scan of the brain was done on 09/04/2024 that showed no acute abnormalities and the patient was seen by neurology. A lumbar puncture has not been done. The abdirashid haji remains on vital high-protein at rate of 75 cc an hour for nutritional support. IV fluids KVO. General surgical services on the case for the partial small bowel obstruction with right inguinal hernia and recommendations were conservative management for partial small bowel obstruction He is off propofol for 72 hours. EEG is to be done this morning. On 09/08/2024, the patient is being seen for a follow-up. Much more awake compared to yesterday. Following simple commands. Has an adequate cough. Noted the patient has been off sedation for the past 96 hours. This morning, the patient is on assist-control mode of mechanical ventilation at rate of 16, tidal volume of 500, FiO2 of 40% with a PEEP of 5. Blood gas showed a pH of 7.45 with a pCO2 of 43 and pO2 of 93. Hemodynamically stable. Cardiac rhythm is sinus. The patient continues to receive vital high-protein for enteral fe eding and nutritional support. The patient is having diarrhea and has a fecal management system in place. Otherwise, no other significant events overnight. Blood work from today shows a white cell count of 16 with a hemoglobin 10.5 and platelet count of 162. Sodium is at 144, BUN 66 with a creatinine of 1.1. Chest x-ray was reviewed and it shows adequate positioning of the orotracheal tube. The patient continues to have some bibasilar atelectatic changes and small effusion in the left lung base, overall, unchanged compared to yesterday's chest x-ray. EEG was consistent with moderate degree of encephalopathy and no seizure activity. Objective - Vital Signs Vital signs: Vital Signs Temp 98.2 F 09/08/24 04:00 Pulse 73 09/08/24 07:00 Resp 14 09/08/24 07:00 BP 125/70 09/08/24 07:00 Pulse Ox 94 L 09/08/24 07:00 FiO2 40 09/08/24 08:18 Intake & Output 09/07/24 09/08/24 09/08/24 18:59 06:59 18:59 Intake Total 1931 1893 73 Output Total 1175 1295 75 Balance 756 598 -2 Weight 98.1 kg 98 kg Intake: IV 156 283 13 0.9 kvo 120 90 Dextrose 5% in Water 1, 60 10 000 ml @ 10 mls/hr IV . Q24H TRIP Rx#:[id number] Piperacillin-Tazobactam 3 100 .375 gm In Sodium Chloride 0.9% 100 ml @ 25 mls/hr IVPB Q8H TRIP Rx#: [id number] Pressure Bag 36 33 3 Tube Feeding 975 810 60 Other 800 800 Output: Urine 1175 1295 75 Other: Voiding Method Indwelling Catheter Indwelling Catheter ABP, PAP, CO, CI - Last Documented Arterial Blood Pressure 104/78 - Exam No acute distress, currently with an orally placed endotracheal tube, and orogastric tube. The patient has been off of sedation and he is arousable, following simple commands. HEENT examination is grossly unremarkable. Neck supple. Full range of motion. No adenopathy thyromegaly or neck vein distention. Cardiovascular examination reveals regular rhythm rate. S1-S2 normal. No S3 or S4. No discernible murmur noted. Lungs reveal mostly clear breath sounds. Scattered rhonchi are noted. No wheezes or crackles. Breath sounds are equal. Abdomen soft with bowel sounds. No masses or tenderness. Extremities are intact. No cyanosis clubbing or edema. Skin is without rash or lesion. Neurologic awake and alert and following simple commands and moving all 4 extremities. - Labs CBC & Chem 7: 09/08/24 05:11 09/08/24 05:11 Labs: Abnormal Lab Results - Last 24 Hours (Table) 09/07/24 09/07/24 09/08/24 Range/Units 18:22 23:22 04:45 WBC (3.8-10.6) k/uL RBC (4.30-5.90) m/uL Hgb (13.0-17.5) gm/dL Hct (39.0-53.0) % ABG HCO3 29 H (21-25) mmol/L ABG Total CO2 31 H (19-24) mmol/L ABG O2 Saturation 97.4 H (94-97) % Hemoglobin 10.5 L (13.0-17.5) gm/dL Chloride (98-107) mmol/L BUN (9-20) mg/dL Glucose (74-99) mg/dL POC Glucose (mg/dL) 122 H 125 H (70-110) mg/dL Calcium (8.4-10.2) mg/dL 09/08/24 09/08/24 09/08/24 Range/Units 05:10 05:11 05:11 WBC 16.1 H (3.8-10.6) k/uL RBC 3.57 L (4.30-5.90) m/uL Hgb 10.5 L (13.0-17.5) gm/dL Hct 32.2 L (39.0-53.0) % ABG HCO3 (21-25) mmol/L ABG Total CO2 (19-24) mmol/L ABG O2 Saturation (94-97) % Hemoglobin (13.0-17.5) gm/dL Chloride 112 H (98-107) mmol/L BUN 56 H (9-20) mg/dL Glucose 130 H (74-99) mg/dL POC Glucose (mg/dL) 131 H (70-110) mg/dL Calcium 7.2 L (8.4-10.2) mg/dL Assessment and Plan Plan: Acute hypoxemic and hypercapnic respiratory failure, secondary to bilateral lower lobe pneumonia likely of a aspiration, requiring intubation and mechanical ventilation as of 09/01/2024. For now, the patient remains intubated on mechanical ventilator. Chest x-ray shows limited infiltration of lung base bilaterally the patient remains on IV Zosyn. Diminished level of consciousness, rule out metabolic/septic. Currently being evaluated by neurology. CT scan negative. Neurologically, improved, the patient is following simple commands. Possible partial small bowel obstruction, on CT scan with a small right inguinal hernia, recovered and the patient is currently receiving enteral feeding for nutritional support and the patient is on vital high-protein Acute leukocytosis Acute kidney injury, improving Right-sided hydronephrosis, urology on the case and no intervention has been recommended. This is to be followed as the patient's renal function continues to improve. History of hypertension. History of hyperlipidemia. History of Parkinson's disease Plan: Keep the patient off sedation Doing spontaneous breathing trial with a pressure support of 5 and a PEEP of 5 and follow-up blood gas will be obtained Possible extubation today Reviewed the chest x-ray, no significant interval change Continue antibiotics and the patient remains on IV Zosyn continue Diflucan Hold enteral feeding for now stool for C diff is negative Possible extubation today, working progress, condition remains critical Critical care evaluation, more than 30 minutes. Time with Patient: Greater than 30
[2024-09-08 11:11] LABS: Glucose,Whole Blood 104 mg/dL (70-110)
[2024-09-08] MEDS: IPRATROPIUM-ALBUTEROL 3 ML NEB INHALATION SCH (13:41)
--- NOTE | 2024-09-08 15:30 | P.PN ---
Subjective Progress Note Date: 09/08/24 SURGICAL PROGRESS NOTE CHIEF COMPLAINT: Aspiration pneumonia HISTORY OF PRESENT ILLNESS: Patient was extubated this morning. He denies any abdominal pain. He has fecal management system in place he is having stools. Per nursing staff he did pass his bedside swallow. He is still little lethargic. Tube feeds through the NG tube have been stopped. NG tube was discontinued. Afebrile. WBC 16.1. Stool for C. difficile negative. Patient has a clear liquid diet ordered for this evening. PHYSICAL EXAM: VITAL SIGNS: Reviewed. GENERAL: no acute distress. Intubated ABDOMEN: Soft. Mildly distended. Nontender. ASSESSMENT: 1. Partial small bowel obstruction with right inguinal hernia containing small bowel 2. Aspiration pneumonia and hypoxia PLAN: -Agree with advancement to clear liquids for dinner -Continue supportive care Physician Applied Mathematician note has been reviewed by physician. Signing provider agrees with the documented findings, assessment, and plan of care. Objective - Vital Signs Vital signs: Vital Signs Temp 97.2 F L 09/08/24 12:00 Pulse 84 09/08/24 14:00 Resp 16 09/08/24 14:00 BP 132/71 09/08/24 14:00 Pulse Ox 95 09/08/24 14:00 FiO2 40 09/08/24 08:18 Intake & Output 09/07/24 09/08/24 09/08/24 18:59 06:59 18:59 Intake Total 1931 1893 454 Output Total 1175 1295 2275 Balance 756 598 -1821 Weight 98.1 kg 98 kg Intake: IV 156 283 164 0.9 kvo 120 90 Dextrose 5% in Water 1, 60 40 000 ml @ 10 mls/hr IV . Q24H TRIP Rx#:[id number] Piperacillin-Tazobactam 3 100 100 .375 gm In Sodium Chloride 0.9% 100 ml @ 25 mls/hr IVPB Q8H TRIP Rx#: [id number] Pressure Bag 36 33 24 Oral 50 Tube Feeding 975 810 120 Other 800 800 120 Output: Urine 1175 1295 1875 Stool 400 Other: Voiding Method Indwelling Catheter Indwelling Catheter Indwelling Catheter ABP, PAP, CO, CI - Last Documented Arterial Blood Pressure 140/60 - Labs CBC & Chem 7: 09/08/24 05:11 09/08/24 05:11 Labs: Abnormal Lab Results - Last 24 Hours (Table) 09/07/24 09/07/24 09/08/24 Range/Units 18:22 23:22 04:45 WBC (3.8-10.6) k/uL RBC (4.30-5.90) m/uL Hgb (13.0-17.5) gm/dL Hct (39.0-53.0) % Neutrophils # (Manual) (1.3-7.7) k/uL Metamyelocytes # (Man) (0) k/uL Myelocytes # (Manual) (0) k/uL ABG HCO3 29 H (21-25) mmol/L ABG Total CO2 31 H (19-24) mmol/L ABG O2 Saturation 97.4 H (94-97) % Hemoglobin 10.5 L (13.0-17.5) gm/dL Chloride (98-107) mmol/L BUN (9-20) mg/dL Glucose (74-99) mg/dL POC Glucose (mg/dL) 122 H 125 H (70-110) mg/dL Calcium (8.4-10.2) mg/dL 09/08/24 09/08/24 09/08/24 Range/Units 05:10 05:11 05:11 WBC 16.1 H (3.8-10.6) k/uL RBC 3.57 L (4.30-5.90) m/uL Hgb 10.5 L (13.0-17.5) gm/dL Hct 32.2 L (39.0-53.0) % Neutrophils # (Manual) 12.80 H (1.3-7.7) k/uL Metamyelocytes # (Man) 0.32 H (0) k/uL Myelocytes # (Manual) 0.16 H (0) k/uL ABG HCO3 (21-25) mmol/L ABG Total CO2 (19-24) mmol/L ABG O2 Saturation (94-97) % Hemoglobin (13.0-17.5) gm/dL Chloride 112 H (98-107) mmol/L BUN 56 H (9-20) mg/dL Glucose 130 H (74-99) mg/dL POC Glucose (mg/dL) 131 H (70-110) mg/dL Calcium 7.2 L (8.4-10.2) mg/dL
[2024-09-08 16:00] LABS: Allen Test Performed? no
[2024-09-08 17:19] LABS: Glucose,Whole Blood 93 mg/dL (70-110)
--- NOTE | 2024-09-08 18:33 | P.PN ---
Subjective Progress Note Date: 09/08/24 Patient evaluated today in the intensive care unit remains on the mechanical ventilator. Repeat chest x-ray today shows persistent multifocal acute infiltrate. Patient remains on a course of IV Zosyn with concern for aspiration pneumonia. Patient has been off sedation for over 48 hours now without im provement in his mentation neurology was consulted for the same. EEG has been ordered. Additionally neurology had recommended infectious disease consultation secondary to the elevated white blood cell count currently today to 17.8. His renal function has improved. He continues on IV hydrocortisone. 09/06/2024 Patient evaluated in follow-up in the intensive care unit. Chest x-ray shows persistent bilateral multifocal infiltrates. White blood cell count today 23.3, potassium 3.3, BUN of 65, creatinine 1.14. Patient is currently being weaned off the IV solucortef. He has had multiple episodes of loose stools and C. difficile will be checked. He remains off sedation is slightly more responsive today currently with no plans for lumbar puncture but will be going for an EEG tomorrow. 09/07/2024 Patient is seen in follow-up today continues to be in the ICU with neurology following scheduled for EEG. Patient is currently sitting up remains on mechanical ventilation off sedation and is following some commands for me on exam. Awaiting further neurological examination. FiO2 is currently 40% with a PEEP of 5. Nephrology following as well as kidney functions are improving with a creatinine of 1.09, potassium is 3.5 and sodium slightly elevated at 146. Continue with tube feeds and free water flushes and will follow-up with repeat labs. Overall prognosis is guarded at this time. Continue with antibiotics as well. Infectious diseases following. 09/08/2024 Patient seen in follow-up this morning and recently just extubated approximately 30 minutes prior to exam. Patient is continued on 5 L via nasal cannula and will wean as tolerated. Patient currently n.p.o. and tube feeds are on hold and awaiting follow-up speech eval to assess swallow. Patient continues to have copious amounts of diarrhea and C. difficile testing was negative. Will add anti-diarrheal agents and monitor for improvements. Consider Questran once diet is slightly more advanced. Patient with extensive weakness will need PT/OT therapy evaluation. Continue IV antibiotics with infectious disease following. White count remains elevated and patient is afebrile. Review of systems: Constitutional: reports of fatigue, no fever, or chills Cardiovascular: No reports of chest pain or palpitations Respiratory: No reports of worsening shortness of breath, weak cough GI: No reports of nausea, vomiting, or diarrhea, reports to feeling hungry : No reports of dysuria or retention, has indwelling [place] catheter Neurovascular: reports of continued weakness All medications have been reviewed Physical exam: GENERAL: This is a 63-year-old male who is awake and just extubated 30 minutes prior, currently on 5 L via nasal cannula and off sedation, sitting up following some commands, elderly appearing, well-developed, obese HEENT: Pupils are round and equally reacting to light. EOMI. No scleral icterus. No conjunctival pallor. Normocephalic, atraumatic. No pharyngeal erythema. No thyromegaly. CARDIOVASCULAR: S1 and S2 muffled PULMONARY: Diminished breath sounds bilaterally with some coarse rhonchi and faint crackles noted ABDOMEN: Soft, obese, nontender, nondistended, normoactive bowel sounds. No palpable organomegaly. MUSCULOSKELETAL: No joint swelling or deformity. EXTREMITIES: No cyanosis, clubbing, edematous and extremely weak NEUROLOGICAL: Gross neurological examination did not reveal any focal deficits. Diffusely weak SKIN: No rashes. no petechiae. Assessment Acute hypoxic respiratory failure requiring intubation and mechanical ventilation, status post successful extubation 09/08/2024, currently maintained on 5 L via nasal cannula Bibasilar pneumonia suspicious for aspiration pneumonia partial small bowel obstruction and right inguinal hernia with loops of small anny wel, improved, having multiple bowel movements, being started on clear liquids septic shock secondary to above, resolved Acute kidney injury, improving Marked right hydronephrosis, evaluated by urologist, appears chronic Leukocytosis could be steroid induced vs infection. History of Parkinson disease Stage II pressure injury to the coccyx and hospital-acquired, wound care was consulted Obesity with a BMI of 30.1 GI prophylaxis DVT prophylaxis Full code Plan Continue in the ICU with pulmonary/critical care team consult Patient was continued on mechanical ventilation and successfully extubated this morning, currently maintained on 5 L via nasal cannula. Will encourage incentive spirometer use and wean FiO2 as tolerated. Off sedation and is awake following some commands Neurology following and EEG was abnormal with encephalopathy with no epileptiform discharges noted ID following and continued on zosyn, discussing possibly discontinuing as patient has received adequate antibiotic therapy Urology team consulted for his right hydronephrosis following along. No plans for surgical intervention at this time and most likely chronic. General Surgery consulted for concerns for partial small bowel obstruction with no need for surgical intervention currently. Currently having multiple episodes of diarrhea and C. difficile was negative. Will add antidiarrheals and also consider Questran once diet is advanced. Continue fecal management system for now until diarrhea is improved Patient evaluated by speech and is being started on clear liquids. Highly recommend continued aspiration precautions and head of the bed elevated 30 to 45 degrees at all times and supervision with meals. Repeat labs in the AM Overall prognosis guarded at this time Will discuss further with case management/social work regarding discharge planning and will need evaluation by PT/OT therapy The impression and plan of care has been dictated by Maye Johnson, Nurse Practitioner as directed. Dr. Frank MD I have performed a history and physical examination and medical decision making of this patient, discussed the same with the dictator, and agree with the dictators assessment and plan as written, documented as a scribe. Based on total visit time, I have performed more than 50% of this visit. Objective - Vital Signs Vital signs: Vital Signs Temp 98.2 F 09/08/24 04:00 Pulse 73 09/08/24 07:00 Resp 14 09/08/24 07:00 BP 125/70 09/08/24 07:00 Pulse Ox 94 L 09/08/24 07:00 FiO2 40 09/08/24 08:18 Intake & Output 09/07/24 09/08/24 09/08/24 18:59 06:59 18:59 Intake Total 1931 1893 73 Output Total 1175 1295 75 Balance 756 598 -2 Weight 98.1 kg 98 kg Intake: IV 156 283 13 0.9 kvo 120 90 Dextrose 5% in Water 1, 60 10 000 ml @ 10 mls/hr IV . Q24H TRIP Rx#:[id number] Piperacillin-Tazobactam 3 100 .375 gm In Sodium Chloride 0.9% 100 ml @ 25 mls/hr IVPB Q8H TRIP Rx#: [id number] Pressure Bag 36 33 3 Tube Feeding 975 810 60 Other 800 800 Output: Urine 1175 1295 75 Other: Voiding Method Indwelling Catheter Indwelling Catheter ABP, PAP, CO, CI - Last Documented Arterial Blood Pressure 104/78 - Labs CBC & Chem 7: 09/08/24 05:11 09/08/24 17:40 Labs: Abnormal Lab Results - Last 24 Hours (Table) 09/07/24 09/07/24 09/08/24 Range/Units 18:22 23:22 04:45 WBC (3.8-10.6) k/uL RBC (4.30-5.90) m/uL Hgb (13.0-17.5) gm/dL Hct (39.0-53.0) % ABG HCO3 29 H (21-25) mmol/L ABG Total CO2 31 H (19-24) mmol/L ABG O2 Saturation 97.4 H (94-97) % Hemoglobin 10.5 L (13.0-17.5) gm/dL Chloride (98-107) mmol/L BUN (9-20) mg/dL Glucose (74-99) mg/dL POC Glucose (mg/dL) 122 H 125 H (70-110) mg/dL Calcium (8.4-10.2) mg/dL 09/08/24 09/08/24 09/08/24 Range/Units 05:10 05:11 05:11 WBC 16.1 H (3.8-10.6) k/uL RBC 3.57 L (4.30-5.90) m/uL Hgb 10.5 L (13.0-17.5) gm/dL Hct 32.2 L (39.0-53.0) % ABG HCO3 (21-25) mmol/L ABG Total CO2 (19-24) mmol/L ABG O2 Saturation (94-97) % Hemoglobin (13.0-17.5) gm/dL Chloride 112 H (98-107) mmol/L BUN 56 H (9-20) mg/dL Glucose 130 H (74-99) mg/dL POC Glucose (mg/dL) 131 H (70-110) mg/dL Calcium 7.2 L (8.4-10.2) mg/dL
--- NOTE | 2024-09-08 18:33 | P.PN ---
Subjective Patient is seen for follow-up for acute kidney injury. Serum sodium remains at 144. Urine output at 100-1 25 cc/h. Serum creatinine decreased to 1.1 today. Patient is extubated Objective - Vital Signs Vital signs: Vital Signs Temp 97.2 F L 09/08/24 16:00 Pulse 101 H 09/08/24 18:00 Resp 14 09/08/24 18:00 BP 121/79 09/08/24 18:00 Pulse Ox 94 L 09/08/24 18:00 FiO2 40 09/08/24 08:18 Intake & Output 09/07/24 09/08/24 09/08/24 18:59 06:59 18:59 Intake Total 1931 1893 543 Output Total 1175 1295 2675 Balance 621 102 -0664 Weight 98.1 kg 98 kg Intake: IV 156 283 203 0.9 kvo 120 90 Dextrose 5% in Water 1, 60 70 000 ml @ 10 mls/hr IV . Q24H TRIP Rx#:[id number] Piperacillin-Tazobactam 3 100 100 .375 gm In Sodium Chloride 0.9% 100 ml @ 25 mls/hr IVPB Q8H TRIP Rx#: [id number] Pressure Bag 36 33 33 Oral 100 Tube Feeding 975 810 120 Other 800 800 120 Output: Urine 1175 1295 2275 Stool 400 Other: Voiding Method Indwelling Catheter Indwelling Catheter Indwelling Catheter ABP, PAP, CO, CI - Last Documented Arterial Blood Pressure 158/69 - Exam Patient remains on the vent. Examination of the heart S1 and S2 Examination of the lungs bilateral breath sounds are heard Abdomen is soft nontender Examination of lower extremities shows 1+ edema and scrotal edema - Labs CBC & Chem 7: 09/08/24 05:11 09/08/24 17:40 Labs: Abnormal Lab Results - Last 24 Hours (Table) 09/07/24 09/08/24 09/08/24 Range/Units 23:22 04:45 05:10 WBC (3.8-10.6) k/uL RBC (4.30-5.90) m/uL Hgb (13.0-17.5) gm/dL Hct (39.0-53.0) % Neutrophils # (Manual) (1.3-7.7) k/uL Metamyelocytes # (Man) (0) k/uL Myelocytes # (Manual) (0) k/uL ABG pH (7.35-7.45) ABG HCO3 29 H (21-25) mmol/L ABG Total CO2 31 H (19-24) mmol/L ABG O2 Saturation 97.4 H (94-97) % Hemoglobin 10.5 L (13.0-17.5) gm/dL Chloride (98-107) mmol/L BUN (9-20) mg/dL Glucose (74-99) mg/dL POC Glucose (mg/dL) 125 H 131 H (70-110) mg/dL Calcium (8.4-10.2) mg/dL 09/08/24 09/08/24 09/08/24 Range/Units 05:11 05:11 09:36 WBC 16.1 H (3.8-10.6) k/uL RBC 3.57 L (4.30-5.90) m/uL Hgb 10.5 L (13.0-17.5) gm/dL Hct 32.2 L (39.0-53.0) % Neutrophils # (Manual) 12.80 H (1.3-7.7) k/uL Metamyelocytes # (Man) 0.32 H (0) k/uL Myelocytes # (Manual) 0.16 H (0) k/uL ABG pH 7.48 H (7.35-7.45) ABG HCO3 30 H (21-25) mmol/L ABG Total CO2 31 H (19-24) mmol/L ABG O2 Saturation 97.6 H (94-97) % Hemoglobin 11.3 L (13.0-17.5) gm/dL Chloride 112 H (98-107) mmol/L BUN 56 H (9-20) mg/dL Glucose 130 H (74-99) mg/dL POC Glucose (mg/dL) (70-110) mg/dL Calcium 7.2 L (8.4-10.2) mg/dL Assessment and Plan Assessment: 1. Acute kidney injury ATN currently nonoliguric secondary to sepsis and hypotension, improving. Solitary functioning kidney which is the left kidney. Patient has chronic hydronephrosis of right kidney with possibly minimal function. 2. Right hydronephrosis noted. This appears to be chronic. Urology on consult. No plans for intervention. 3. Acute hypoxic respiratory failure currently on on the ventilator. Status post extubation 4. Aspiration pneumonia 5. History of Parkinson's disease 6. Metabolic acidosis secondary to acute kidney injury 7. Hypokalemia status post replacement Plan: Continue to monitor electrolytes and renal function. Currently not on any diur etics or IV fluids.
[2024-09-08] MEDS ORDERED: LOPERAMIDE 2 MG CAP PO PRN (18:34)
[2024-09-08] MEDS: POTASSIUM CHLORIDE 10 MEQ in WATER FOR INJECTION 1 100ML.BAG IVPB SCH (18:47)
[2024-09-08 20:43] LABS: Glucose,Whole Blood 86 mg/dL (70-110)
[2024-09-09 04:36] LABS: Basophils # (A) 0.1 k/uL (0-0.2); Basophils % (A) 0 %; Eosinophils # (A) 0.1 k/uL (0-0.7); Eosinophils % (A) 1 %; HCT 35.6 % (39.0-53.0); HGB 11.7 gm/dL (13.0-17.5); Lymphocytes # (A) 1.2 k/uL (1.0-4.8); Lymphocytes % (A) 7 %; MCH 29.6 pg (25.0-35.0); MCHC 32.8 g/dL (31.0-37.0); MCV 90.3 fL (80.0-100.0); Mean Platelet Volume 7.6; Monocytes # (A) 0.5 k/uL (0-1.0); Monocytes % (A) 3 %; Neutrophils # (A) 16.2 k/uL (1.3-7.7); Neutrophils % (A) 89 %; Platelet Count 205 k/uL (150-450); RBC 3.94 m/uL (4.30-5.90); RDW 14.1 % (11.5-15.5); WBC 18.3 k/uL (3.8-10.6)
[2024-09-09 05:01] LABS: African American GFR (CKD) 80 (>60 ml/min/1.73 sqM); Anion Gap 4 mmol/L; Blood Urea Nitrogen 50 mg/dL (9-20); Calcium 7.9 mg/dL (8.4-10.2); Carbon Dioxide 31 mmol/L (22-30); Chloride 112 mmol/L (98-107); Glucose 84 mg/dL (74-99); Magnesium 1.9 mg/dL (1.6-2.3); Non-African American GFR(CKD) 70 (>60 ml/min/1.73 sqM); Potassium 4.3 mmol/L (3.5-5.1); Sodium 147 mmol/L (137-145)
[2024-09-09] MEDS ORDERED: Magnesium Replacement Protocol 1 EACH MISC MISCELLANE PRN (05:20)
[2024-09-09 06:08] LABS: Glucose,Whole Blood 82 mg/dL (70-110)
[2024-09-09] MEDS: MAGNESIUM SULFATE-D5W PMX 1 GM in DEXTROSE/WATER 1 100ML.BAG IVPB ONE (06:12)
[2024-09-09] MEDS: INSULIN ASPART (NovoLOG) 100 UNIT/ML VIAL SQ SCH (06:13)
--- NOTE | 2024-09-09 08:12 | XR ---
EXAMINATION TYPE: XR chest 1V portable DATE OF EXAM: 09/09/2024 CLINICAL HISTORY: Difficulty breathing progress study. TECHNIQUE: Single AP portable semiupright view of the chest is obtained. COMPARISON: Chest x-ray from one day earlier and older studies. FINDINGS: Interval extubation with removal of endotracheal and orogastric tubes. Persistent patchy bibasilar opacities. Cardiac silhouette size stable and within normal limits. Multi level spurring in the thoracolumbar spine redemonstrated. Left thoracic stimulator device again seen. IMPRESSION: Interval extubation. Persistent patchy bibasilar acute infiltrates and/or atelectasis. [facility], , 09/09/2024 8:10 AM
--- NOTE | 2024-09-09 10:14 | P.PN ---
Subjective Progress Note Date: 09/09/24 On 09/07/2024, the patient is being seen for a follow-up. I the patient is known to have Parkinson's disease, quite extensive and the patient has a brain stimulator in place in addition to history of hypertension hyperlipidemia who presented to the emergency department with few days of nausea and emesis and shortness of breath. The patient was also having increased lethargy. In the emergency, the patient was in significant distress and the patient was placed on a BiPAP and a CAT scan of the abdomen and pelvis was obtained that showed bibasilar airspace disease consolidation with air bronchograms and small bilateral pleural effusion. There was also a right inguinal hernia containing loop of small bowel and possible partial small bowel obstruction. Normal caliber colon and mild fecal retention. Was also mild right-sided hydronephrosis and questionable obstruction at the level of the ureteropelvic junction. NG tube was inserted and there was a total of 1 L of fecal like material content evacuated. Subsequently, the patient went respiratory failure, while in the emergency, the patient was intubated and placed on a mechanical ventilator on 09/01/2024. For now, the patient remains intubated on the mechanical ventilator. This morning, the patient remains on assist-control mode rate of 24, tidal volume of 500, FiO2 40% with a PEEP of 5. Blood gases are still pending from this morning. The chest x-ray from today is showing a nerve stimulator over the left anterior chest area and some limited hazy bilateral pulmonary infiltrates especially on the right. The sputum sample collected on 09/01/2024 was consistent with Richelle and the patient remains on IV Zosyn. The patient has been off sedation for several days and unfortunately, the neurologic response has been suboptimal as the patient remains encephalopathic. CAT scan of the brain was done on 09/04/2024 that showed no acute abnormalities and the patient was seen by neurology. A lumbar puncture has not been done. The abdirashid haji remains on vital high-protein at rate of 75 cc an hour for nutritional support. IV fluids KVO. General surgical services on the case for the partial small bowel obstruction with right inguinal hernia and recommendations were conservative management for partial small bowel obstruction He is off propofol for 72 hours. EEG is to be done this morning. On 09/08/2024, the patient is being seen for a follow-up. Much more awake compared to yesterday. Following simple commands. Has an adequate cough. Noted the patient has been off sedation for the past 96 hours. This morning, the patient is on assist-control mode of mechanical ventilation at rate of 16, tidal volume of 500, FiO2 of 40% with a PEEP of 5. Blood gas showed a pH of 7.45 with a pCO2 of 43 and pO2 of 93. Hemodynamically stable. Cardiac rhythm is sinus. The patient continues to receive vital high-protein for enteral fe eding and nutritional support. The patient is having diarrhea and has a fecal management system in place. Otherwise, no other significant events overnight. Blood work from today shows a white cell count of 16 with a hemoglobin 10.5 and platelet count of 162. Sodium is at 144, BUN 66 with a creatinine of 1.1. Chest x-ray was reviewed and it shows adequate positioning of the orotracheal tube. The patient continues to have some bibasilar atelectatic changes and small effusion in the left lung base, overall, unchanged compared to yesterday's chest x-ray. EEG was consistent with moderate degree of encephalopathy and no seizure activity. On 09/09/2024, the patient is extubated and is currently on 5 L of oxygen nasal cannula. Weak cough. No signs of any respiratory distress. Chest x-ray showing patchy bibasilar pulm infiltrates/atelectasis. Neurologically, arousable, sluggish in his response, extremely weak, rigid, has some tremors and overall evaluation is consistent with his history of Parkinson's disease. Seems to be in a low mood state. He does communicate however is very sluggish and slow in his responses. The patient was given a dose of Lasix yesterday. Fluid balance is -3 L over the past 24 hours. Electrolytes from today showed a sodium level of 147, potassium of 4.3, bicarb of 31 with a BUN of 15 and creatinine 1.1. WBC count at 18.3 with a hemoglobin of 11.7. The patient remains on IV Zosyn and the patient is also on Diflucan. He has a brain stimulator and he remains on Sinemet. Rest of the medications remain unchanged. He was extubated on 09/08/2024. Objective - Vital Signs Vital signs: Vital Signs Temp 98.1 F 09/08/24 20:00 Pulse 89 09/09/24 07:00 Resp 13 09/09/24 07:00 BP 113/67 09/09/24 07:00 Pulse Ox 96 09/09/24 07:00 FiO2 40 09/08/24 08:18 Intake & Output 09/08/24 09/09/24 09/09/24 18:59 06:59 18:59 Intake Total 556 156 13 Output Total 2825 1045 80 Balance -2269 -889 -67 Weight 96.3 kg Intake: IV 216 156 13 Dextrose 5% in Water 1, 80 120 10 000 ml @ 10 mls/hr IV . Q24H [facility] Rx#:[id number] Piperacillin-Tazobactam 3 100 .375 gm In Sodium Chloride 0.9% 100 ml @ 25 mls/hr IVPB Q8H [facility] Rx#: [id number] Pressure Bag 36 36 3 Oral 100 Tube Feeding 120 Other 120 Output: Urine 2425 1045 80 Stool 400 Other: Voiding Method Indwelling Catheter Indwelling Catheter ABP, PAP, CO, CI - Last Documented Arterial Blood Pressure 116/53 - Exam No acute distress, lethargic, weak, rigid, consistent with Parkinson disease and the patient is not showing any signs of an acute respiratory distress. He has a weak cough currently on 5 L of O2 nasal cannula. HEENT examination is grossly unremarkable. Neck supple. Full range of motion. No adenopathy thyromegaly or neck vein distention. Cardiovascular examination reveals regular rhythm rate. S1-S2 normal. No S3 or S4. No discernible murmur noted. Lungs reveal mostly clear breath sounds. Scattered rhonchi are noted. No wheezes or crackles. Breath sounds are equal. Abdomen soft with bowel sounds. No masses or tenderness. Extremities are intact. No cyanosis clubbing or edema. Skin is without rash or lesion. Neurologic rigid and weak and the patient has generalized motor weakness in all 4 extremities. Able to communicate. Exam is consistent with advanced Parkinson disease with cogwheel rigidity. - Labs CBC & Chem 7: 09/09/24 04:05 09/09/24 04:05 Labs: Abnormal Lab Results - Last 24 Hours (Table) 09/08/24 09/08/24 09/09/24 Range/Units 05:11 09:36 04:05 WBC 18.3 H (3.8-10.6) k/uL RBC 3.94 L (4.30-5.90) m/uL Hgb 11.7 L (13.0-17.5) gm/dL Hct 35.6 L (39.0-53.0) % Neutrophils # 16.2 H (1.3-7.7) k/uL Neutrophils # (Manual) 12.80 H (1.3-7.7) k/uL Metamyelocytes # (Man) 0.32 H (0) k/uL Myelocytes # (Manual) 0.16 H (0) k/uL ABG pH 7.48 H (7.35-7.45) ABG HCO3 30 H (21-25) mmol/L ABG Total CO2 31 H (19-24) mmol/L ABG O2 Saturation 97.6 H (94-97) % Hemoglobin 11.3 L (13.0-17.5) gm/dL Sodium (137-145) mmol/L Chloride (98-107) mmol/L Carbon Dioxide (22-30) mmol/L BUN (9-20) mg/dL Calcium (8.4-10.2) mg/dL 09/09/24 Range/Units 04:05 WBC (3.8-10.6) k/uL RBC (4.30-5.90) m/uL Hgb (13.0-17.5) gm/dL Hct (39.0-53.0) % Neutrophils # (1.3-7.7) k/uL Neutrophils # (Manual) (1.3-7.7) k/uL Metamyelocytes # (Man) (0) k/uL Myelocytes # (Manual) (0) k/uL ABG pH (7.35-7.45) ABG HCO3 (21-25) mmol/L ABG Total CO2 (19-24) mmol/L ABG O2 Saturation (94-97) % Hemoglobin (13.0-17.5) gm/dL Sodium 147 H (137-145) mmol/L Chloride 112 H (98-107) mmol/L Carbon Dioxide 31 H (22-30) mmol/L BUN 50 H (9-20) mg/dL Calcium 7.9 L (8.4-10.2) mg/dL Assessment and Plan Plan: Acute hypoxemic and hypercapnic respiratory failure, secondary to bilateral lower lobe pneumonia likely of a aspiration, requiring intubation and mechanical ventilation as of 09/01/2024. The patient was extubated on 09/08/2024 and the patient is currently on 5 L of O2 nasal cannula. Some limited atelectatic change in infiltrates are seen in the lung base and the patient remains on IV Zosyn. Diminished level of consciousness, rule out metabolic/septic. Currently being evaluated by neurology. CT scan negative. Neurologically, improved, the patient is following simple commands. Overall neuroexam is consistent with Parkinson's disease. The patient continues to be profoundly weak and rigid. Possible partial small bowel obstruction, on CT scan with a small right inguinal hernia, recovered Acute leukocytosis Acute kidney injury, recovered Right-sided hydronephrosis, urology on the case and no intervention has been recommended. This is to be followed as the patient's renal function continues to improve. History of hypertension. History of hyperlipidemia. History of Parkinson's disease Hyperchloremic hypernatremia Plan: Aggressive pulmonary toileting Incentive spirometer Swallow evaluation Reviewed the chest x-ray, no significant interval change Continue antibiotics and the patient remains on IV Zosyn continue Diflucan May consider PEG tube insertion if the patient is unable to meet his caloric requirements and swallow properly stool for C diff is negative, diarrhea is subsiding Start the patient on D5 half-normal saline at rate of 75 cc an hour and monitor the sodium level Long-term prognosis remains poor. Critical care evaluation, more than 30 minutes. Time with Patient: Greater than 30
--- NOTE | 2024-09-09 11:22 | P.PN ---
Subjective Progress Note Date: 09/08/24 09/08/2024: Patient was seen for a follow-up. Patient states he is feeling good, denies headache. Patient was extubated today. 09/07/2024: Patient was initially seen by Dr. Erwin Neal. Please refer to his note for details. Patient is a 63-year-old male with altered mental status and felt aspiration pneumonia. Does not appear meningoencephalitis as per Dr. Neal. I spoke to ICU staff, it appears patient is slightly improved as compared to how his examination was 3 days ago, but still not with it. Patient is intubated on the mechanical ventilator. Patient not on any IV drips. No seizure-like activity. Please refer to examination below. Some of the workup during this hospital visit consisted of: As Stated earlier on initial presentation patient had low-grade fever on the first few days in the hospital stay and the Tmax was 102.1 and he had been afebrile since September 02, 2024. Oxygen during hospital admission was as low as 75% White blood cell is trending down initially it was 11.7 got as high as 26,000 and currently is 17.8. AST is 91 ALT 14 Vitamin B12 is 1236 TSH is 1.50 Ammonia level 17 On initial presentation patient had acute kidney in injury which resolved was 2.8 for now it is 1.10 CT head is reported as no acute intracranial process. Nonspecific white matter changes, likely secondary to chronic small vessel ischemic disease. Postsurgical changes with stimulator leads identified within the bilateral basal ganglia. I personally reviewed the CT and agree with the report. Sputum culture is Richelle albicans Objective - Vital Signs Vital signs: Vital Signs Temp 98.6 F 09/08/24 08:00 Pulse 76 09/08/24 11:00 Resp 12 09/08/24 11:00 BP 144/81 09/08/24 11:00 Pulse Ox 95 09/08/24 11:00 FiO2 40 09/08/24 08:18 Intake & Output 09/07/24 09/08/24 09/08/24 18:59 06:59 18:59 Intake Total 1931 1893 365 Output Total 1175 1295 1375 Balance 756 598 -1010 Weight 98.1 kg 98 kg Intake: IV 156 283 125 0.9 kvo 120 90 Dextrose 5% in Water 1, 60 10 000 ml @ 10 mls/hr IV . Q24H [facility] Rx#:[id number] Piperacillin-Tazobactam 3 100 100 .375 gm In Sodium Chloride 0.9% 100 ml @ 25 mls/hr IVPB Q8H [facility] Rx#: [id number] Pressure Bag 36 33 15 Tube Feeding 975 810 120 Other 800 800 120 Output: Urine 1175 1295 975 Stool 400 Other: Voiding Method Indwelling Catheter Indwelling Catheter Indwelling Catheter ABP, PAP, CO, CI - Last Documented Arterial Blood Pressure 140/60 - Exam On examination patient is laying in the bed, in no acute distress. Patient has been extubated today. On cranial examination pupils are equal, round and reacting, extraocular muscles appears intact. He has some chin tremors noticed. No obvious seizure-like activity. Patient's branch chief is about 4 bilaterally. He is wiggling his feet and toes. Proximally he is very weak, but very stiff and rigid as well. Patient is receiving his Sinemet it appears. Reflexes are diminished. Tone is increased in the arms and legs. Patient has had peripheral edema. Abdomen is soft nontender. Chest appears clear to auscultation. No crackles or murmurs. - Labs CBC & Chem 7: 09/09/24 04:05 09/09/24 04:05 Labs: Abnormal Lab Results - Last 24 Hours (Table) 09/07/24 09/07/24 09/08/24 Range/Units 18:22 23:22 04:45 WBC (3.8-10.6) k/uL RBC (4.30-5.90) m/uL Hgb (13.0-17.5) gm/dL Hct (39.0-53.0) % Neutrophils # (Manual) (1.3-7.7) k/uL Metamyelocytes # (Man) (0) k/uL Myelocytes # (Manual) (0) k/uL ABG HCO3 29 H (21-25) mmol/L ABG Total CO2 31 H (19-24) mmol/L ABG O2 Saturation 97.4 H (94-97) % Hemoglobin 10.5 L (13.0-17.5) gm/dL Chloride (98-107) mmol/L BUN (9-20) mg/dL Glucose (74-99) mg/dL POC Glucose (mg/dL) 122 H 125 H (70-110) mg/dL Calcium (8.4-10.2) mg/dL 09/08/24 09/08/24 09/08/24 Range/Units 05:10 05:11 05:11 WBC 16.1 H (3.8-10.6) k/uL RBC 3.57 L (4.30-5.90) m/uL Hgb 10.5 L (13.0-17.5) gm/dL Hct 32.2 L (39.0-53.0) % Neutrophils # (Manual) 12.80 H (1.3-7.7) k/uL Metamyelocytes # (Man) 0.32 H (0) k/uL Myelocytes # (Manual) 0.16 H (0) k/uL ABG HCO3 (21-25) mmol/L ABG Total CO2 (19-24) mmol/L ABG O2 Saturation (94-97) % Hemoglobin (13.0-17.5) gm/dL Chloride 112 H (98-107) mmol/L BUN 56 H (9-20) mg/dL Glucose 130 H (74-99) mg/dL POC Glucose (mg/dL) 131 H (70-110) mg/dL Calcium 7.2 L (8.4-10.2) mg/dL Assessment and Plan Assessment: Altered mental status, likely due to metabolic encephalopathy. Improved. Reasons multifactorial as mentioned below. Status post extubation 09/08/2024 Septic encephalopathy from aspiration pneumonia, metabolic encephalopathy. CT of the head is unremarkable for any acute or subacute process. Acute acute kidney injury--resolved Fever and leukocytosis and it was felt patient likely has aspiration pneumonia and its likely due to his vomiting episode Slight transaminitis Acute hypoxemic and hypercapnic respiratory failure secondary to aspiration pneumonia the patient is intubated on the ventilator History of Parkinson disease status post Deep brain stimulator (DBS) History of hypertension Hyperlipidemia Plan: Patient is extubated. He is doing better. He is following directions, but patient continues to be quite rigid, bradykinetic. Possible Parkinson's worse lately. EEG was performed, which was abnormal due to background slowing of moderate de gree, suggestive of generalized cerebral dysfunction as can be seen with toxic metabolic encephalopathy or due to diffuse structural brain abnormality. No focal, lateralized or epileptiform activity was seen. Infection diseases consulted and Dr. Neal discussed with ID and agreed to hold off on pursuing lumbar puncture since does not seem to be meningitis or encephalitis it was felt mostly aspiration pneumonia. C. difficile negative Patient is on his home medication of Sinemet 25-100 1 tablet 3 times daily, currently receiving it. Patient appears very parkinsonian. May have to increase the dose. Will defer the rest of the medical management to primary and other specialist Neurology will follow clinically.
[2024-09-09] MEDS ORDERED: ZINC OXIDE PASTE (Z-GUARD) 1 APPLIC TOPICAL PRN (11:30)
--- NOTE | 2024-09-09 11:34 | P.CONS ---
History of Present Illness - Reason for Consult Consult date: 09/09/24 wound care - History of Present Illness This is a 63-year-old patient being seen in ICU for a deep tissue injury. Patient at this time has a stage III pressure ulcer to the left and right buttocks. Reviewing pictures that were taken on 1225 at that time ulceration was a DTI with skin intact ecchymosis noted. At this time patient has multiple open ulcerations with significant amount of eschar and nonviable tissue present with minimal granulation noted no tunneling or undermining at present at this time. Periwound shows excoriation. Review of systems: Unable to obtain due to mental status Physical exam: General Appearance: Alert, cooperative, no distress, appears stated age. Skin: See HPI all other Skin color, texture, tugor normal, no rashes or lesions. Neurologic: Alert oriented x3 Assessment: 1. Stage III pressure ulcer right buttocks 2. Stage III pressure ulcer left buttocks Plan: 1. Left/right buttocks: Apply honey gel to the open ulcerations zinc to the periwound and cover with a sacral border foam. Change Saturday. Continue to turn patient every 2 hours hours continue to offload. Utilize appropriate surface for offloading. Thank you for the consultation any questions please contact the wound care center DNP note has been reviewed and discussed with Dr. Erwin and the impression and plan of care has been directed as dictated. Past Medical History Past Medical History: Hypertension Additional Past Medical History / Comment(s): parkinsons History of Any Multi-Drug Resistant Organisms: None Reported Past Surgical History: No Surgical Hx Reported Additional Past Surgical History / Comment(s): deep brain stimulator Past Anesthesia/Blood Transfusion Reactions: No Reported Reaction Past Psychological History: No Psychological Hx Reported Smoking Status: Former smoker Past Alcohol Use History: Occasional Past Drug Use History: Marijuana Medications and Allergies Home Medications Medication Instructions Recorded Confirmed Type Atorvastatin [Lipitor] 20 mg PO HS@1800 08/31/24 08/31/24 History Carbidopa-Levodopa 25-100 mg 1 tab PO TID@0600,1400,1800 08/31/24 08/31/24 History [Sinemet 25-100] atenoloL [Tenormin] 25 mg PO DAILY@0600 08/31/24 08/31/24 History Allergies Allergy/AdvReac Type Severity Reaction Status Date / Time No Known Allergies Allergy Verified 08/31/24 20:47 Physical Exam Vitals: Vital Signs Temp Pulse Resp BP Pulse Ox 09/09/24 07:00 89 13 113/67 96 09/09/24 06:00 85 15 112/62 96 09/09/24 05:00 84 13 95 09/09/24 04:00 90 16 124/69 95 09/09/24 03:00 89 15 136/79 94 L 09/09/24 02:00 95 15 117/71 95 09/09/24 01:00 86 13 133/73 94 L 09/09/24 00:00 87 18 95 09/08/24 23:58 80 19 96 09/08/24 23:00 89 15 94 L 09/08/24 22:00 78 14 134/75 95 09/08/24 21:00 90 16 106/67 94 L 09/08/24 20:00 98.1 F 95 14 114/64 93 L 09/08/24 19:00 89 11 L 127/76 94 L 09/08/24 18:00 101 H 14 121/79 94 L 09/08/24 17:00 100 13 139/78 94 L 09/08/24 16:00 97.2 F L 96 15 135/75 94 L 09/08/24 15:00 81 18 148/78 95 09/08/24 14:00 84 16 132/71 95 09/08/24 13:00 74 13 133/74 96 09/08/24 12:00 97.2 F L 77 14 131/71 95 Intake and Output 09/08/24 09/09/24 09/09/24 22:59 06:59 14:59 Intake Total 154 104 13 Output Total 1050 545 80 Balance -896 -441 -67 Intake: IV 104 104 13 Dextrose 5% in Water 1, 80 80 10 000 ml @ 10 mls/hr IV . Q24H [facility] Rx#:[id number] Pressure Bag 24 24 3 Oral 50 Output: Urine 1050 545 80 Other: Voiding Method Indwelling Catheter Indwelling Catheter Weight 96.3 kg ABP, PAP, CO, CI - Last 8 Hours Arterial Blood Pressure 116/53 Arterial Blood Pressure 132/61 Arterial Blood Pressure 125/57 Results CBC & Chem 7: 09/09/24 04:05 09/09/24 04:05 Labs: Abnormal Lab Results - Last 24 Hours (Table) 09/08/24 09/09/24 09/09/24 Range/Units 09:36 04:05 04:05 WBC 18.3 H (3.8-10.6) k/uL RBC 3.94 L (4.30-5.90) m/uL Hgb 11.7 L (13.0-17.5) gm/dL Hct 35.6 L (39.0-53.0) % Neutrophils # 16.2 H (1.3-7.7) k/uL ABG pH 7.48 H (7.35-7.45) ABG HCO3 30 H (21-25) mmol/L ABG Total CO2 31 H (19-24) mmol/L ABG O2 Saturation 97.6 H (94-97) % Hemoglobin 11.3 L (13.0-17.5) gm/dL Sodium 147 H (137-145) mmol/L Chloride 112 H (98-107) mmol/L Carbon Dioxide 31 H (22-30) mmol/L BUN 50 H (9-20) mg/dL Calcium 7.9 L (8.4-10.2) mg/dL
[2024-09-09 11:46] LABS: Glucose,Whole Blood 91 mg/dL (70-110)
--- NOTE | 2024-09-09 12:21 | P.PN ---
Subjective Patient is seen for follow-up for acute kidney injury. Serum sodium remains at 147. Urine output at 100-1 25 cc/h. Serum creatinine decreased to 1.1 today. Patient is extubated. He has failed swallow and evaluation and is n.p.o. Started on IV fluids Objective - Vital Signs Vital signs: Vital Signs Temp 98.1 F 09/08/24 20:00 Pulse 89 09/09/24 07:00 Resp 13 09/09/24 07:00 BP 113/67 09/09/24 07:00 Pulse Ox 96 09/09/24 07:00 FiO2 40 09/08/24 08:18 Intake & Output 09/08/24 09/09/24 09/09/24 18:59 06:59 18:59 Intake Total 556 156 13 Output Total 2825 1045 80 Balance -2269 -889 -67 Weight 96.3 kg Intake: IV 216 156 13 Dextrose 5% in Water 1, 80 120 10 000 ml @ 10 mls/hr IV . Q24H [facility] Rx#:[id number] Piperacillin-Tazobactam 3 100 .375 gm In Sodium Chloride 0.9% 100 ml @ 25 mls/hr IVPB Q8H [facility] Rx#: [id number] Pressure Bag 36 36 3 Oral 100 Tube Feeding 120 Other 120 Output: Urine 2425 1045 80 Stool 400 Other: Voiding Method Indwelling Catheter Indwelling Catheter ABP, PAP, CO, CI - Last Documented Arterial Blood Pressure 116/53 - Exam Patient remains on the vent. Examination of the heart S1 and S2 Examination of the lungs bilateral breath sounds are heard Abdomen is soft nontender Examination of lower extremities shows 1+ edema and scrotal edema, seems to have decreased - Labs CBC & Chem 7: 09/09/24 04:05 09/09/24 04:05 Labs: Abnormal Lab Results - Last 24 Hours (Table) 09/08/24 09/09/24 09/09/24 Range/Units 09:36 04:05 04:05 WBC 18.3 H (3.8-10.6) k/uL RBC 3.94 L (4.30-5.90) m/uL Hgb 11.7 L (13.0-17.5) gm/dL Hct 35.6 L (39.0-53.0) % Neutrophils # 16.2 H (1.3-7.7) k/uL ABG pH 7.48 H (7.35-7.45) ABG HCO3 30 H (21-25) mmol/L ABG Total CO2 31 H (19-24) mmol/L ABG O2 Saturation 97.6 H (94-97) % Hemoglobin 11.3 L (13.0-17.5) gm/dL Sodium 147 H (137-145) mmol/L Chloride 112 H (98-107) mmol/L Carbon Dioxide 31 H (22-30) mmol/L BUN 50 H (9-20) mg/dL Calcium 7.9 L (8.4-10.2) mg/dL Assessment and Plan Assessment: 1. Acute kidney injury ATN currently nonoliguric secondary to sepsis and hypotension, improving. Solitary functioning kidney which is the left kidney. Patient has chronic hydronephrosis of right kidney with possibly minimal function. 2. Right hydronephrosis noted. This appears to be chronic. Urology on consult. No plans for intervention. 3. Acute hypoxic respiratory failure currently on on the ventilator. Status post extubation 4. Aspiration pneumonia 5. History of Parkinson's disease 6. Metabolic acidosis secondary to acute kidney injury 7. Hypokalemia status post replacement 8. Hypernatremia associated with free water deficit Plan: Continue D5.45 normal saline Repeat labs in a.m. May need to switch to D5W if serum sodium is further increased.
[2024-09-09] MEDS: DEXTROSE 5%-0.45% NACL 1,000 ML IV SCH (13:30)
--- NOTE | 2024-09-09 14:19 | P.PN ---
Subjective Progress Note Date: 09/09/24 SURGICAL PROGRESS NOTE CHIEF COMPLAINT: Aspiration pneumonia HISTORY OF PRESENT ILLNESS: Patient remains in the ICU. He was extubated yesterday. Patient still very lethargic and weak. Patient currently on a clear liquid diet. He has FMS in place. Having lots of loose stools. Afebrile. WBC 16 up to 18. Stool for C. difficile negative. Patient seen by speech therapy they are recommending n.p.o. diet due to patient's altered mental status. PHYSICAL EXAM: VITAL SIGNS: Reviewed. GENERAL: no acute distress ABDOMEN: Soft. nondistended. Nontender. Hernia reduced. Neuro: lethargic ASSESSMENT: 1. Partial small bowel obstruction with right inguinal hernia containing small bowel. Small bowel obstruction resolved. 2. Aspiration pneumonia and hypoxia PLAN: -Discontinue reglan due to diarrhea -Patient currently n.p.o. per speech therapy recommendations -Continue supportive care Physician Ccu Nurse note has been reviewed by physician. Signing provider agrees with the documented findings, assessment, and plan of care. Attestation Patient seen and examined at bedside. Presented with chief complaint of aspiration pneumonia. Concern for partial small bowel obstruction that appears to be resolving. Right inguinal hernia was noted to contain small bowel and this was reduced with obstruction being resolved. Patient having bowel function. Per speech therapy, patient has been recommended to keep n.p.o. at this time due to altered mental status. Continue supportive care. Leslie Wilcox DO Objective - Vital Signs Vital signs: Vital Signs Temp 98.1 F 09/08/24 20:00 Pulse 89 09/09/24 07:00 Resp 13 09/09/24 07:00 BP 113/67 09/09/24 07:00 Pulse Ox 96 09/09/24 07:00 FiO2 40 09/08/24 08:18 Intake & Output 09/08/24 09/09/24 09/09/24 18:59 06:59 18:59 Intake Total 556 156 13 Output Total 2825 1045 80 Balance -2269 -889 -67 Weight 96.3 kg Intake: IV 216 156 13 Dextrose 5% in Water 1, 80 120 10 000 ml @ 10 mls/hr IV . Q24H [facility] Rx#:[id number] Piperacillin-Tazobactam 3 100 .375 gm In Sodium Chloride 0.9% 100 ml @ 25 mls/hr IVPB Q8H [facility] Rx#: [id number] Pressure Bag 36 36 3 Oral 100 Tube Feeding 120 Other 120 Output: Urine 2425 1045 80 Stool 400 Other: Voiding Method Indwelling Catheter Indwelling Catheter ABP, PAP, CO, CI - Last Documented Arterial Blood Pressure 116/53 - Labs CBC & Chem 7: 09/09/24 04:05 09/09/24 04:05 Labs: Abnormal Lab Results - Last 24 Hours (Table) 09/08/24 09/09/24 09/09/24 Range/Units 09:36 04:05 04:05 WBC 18.3 H (3.8-10.6) k/uL RBC 3.94 L (4.30-5.90) m/uL Hgb 11.7 L (13.0-17.5) gm/dL Hct 35.6 L (39.0-53.0) % Neutrophils # 16.2 H (1.3-7.7) k/uL ABG pH 7.48 H (7.35-7.45) ABG HCO3 30 H (21-25) mmol/L ABG Total CO2 31 H (19-24) mmol/L ABG O2 Saturation 97.6 H (94-97) % Hemoglobin 11.3 L (13.0-17.5) gm/dL Sodium 147 H (137-145) mmol/L Chloride 112 H (98-107) mmol/L Carbon Dioxide 31 H (22-30) mmol/L BUN 50 H (9-20) mg/dL Calcium 7.9 L (8.4-10.2) mg/dL
[2024-09-09 16:18] LABS: Glucose,Whole Blood 91 mg/dL (70-110)
[2024-09-09 20:09] LABS: Glucose,Whole Blood 84 mg/dL (70-110)
[2024-09-10] MEDS: CARBIDOPA-LEVODOPA 25-100 MG 1 EACH TAB PO SCH (00:19)
[2024-09-10 04:05] LABS: Basophils % (A) 0 %; Eosinophils # (A) 0.1 k/uL (0-0.7); Eosinophils % (A) 1 %; HCT 33.3 % (39.0-53.0); HGB 10.7 gm/dL (13.0-17.5); Lymphocytes # (A) 1.1 k/uL (1.0-4.8); Lymphocytes % (A) 7 %; MCH 29.1 pg (25.0-35.0); MCHC 32.2 g/dL (31.0-37.0); MCV 90.4 fL (80.0-100.0); Mean Platelet Volume 7.7; Monocytes # (A) 0.5 k/uL (0-1.0); Monocytes % (A) 3 %; Neutrophils # (A) 13.2 k/uL (1.3-7.7); Neutrophils % (A) 88 %; Platelet Count 207 k/uL (150-450); RBC 3.68 m/uL (4.30-5.90); RDW 14.1 % (11.5-15.5)
[2024-09-10 04:25] LABS: African American GFR (CKD) 78 (>60 ml/min/1.73 sqM); Anion Gap 1 mmol/L; Blood Urea Nitrogen 36 mg/dL (9-20); Calcium 8.1 mg/dL (8.4-10.2); Carbon Dioxide 29 mmol/L (22-30); Chloride 114 mmol/L (98-107); Glucose 103 mg/dL (74-99); Non-African American GFR(CKD) 68 (>60 ml/min/1.73 sqM); Sodium 144 mmol/L (137-145)
[2024-09-10 08:44] LABS: Glucose,Whole Blood 104 mg/dL (70-110)
--- NOTE | 2024-09-10 09:42 | XR ---
EXAMINATION TYPE: XR chest 1V portable DATE OF EXAM: 09/10/2024 9:17 AM COMPARISON: Chest x-ray when the earlier older studies CLINICAL INDICATION: Male, 63 years old with history of sob, TECHNIQUE: Single AP portable upright view of the chest is obtained. FINDINGS: Persistent patchy bibasilar opacities and small left pleural effusion. Cardiac silhouette size stable and within normal limits. Multilevel spurring in the lower thoracic spine redemonstrated. Left sided stimulator device again seen. IMPRESSION: Persistent patchy bibasilar acute infiltrates and/or atelectasis and small left pleural e ffusion. [facility], , 09/10/2024 9:40 AM
--- NOTE | 2024-09-10 09:43 | P.PN ---
Subjective Progress Note Date: 09/09/24 Patient evaluated today in the intensive care unit remains on the mechanical ventilator. Repeat chest x-ray today shows persistent multifocal acute infiltrate. Patient remains on a course of IV Zosyn with concern for aspiration pneumonia. Patient has been off sedation for over 48 hours now without im provement in his mentation neurology was consulted for the same. EEG has been ordered. Additionally neurology had recommended infectious disease consultation secondary to the elevated white blood cell count currently today to 17.8. His renal function has improved. He continues on IV hydrocortisone. 09/06/2024 Patient evaluated in follow-up in the intensive care unit. Chest x-ray shows persistent bilateral multifocal infiltrates. White blood cell count today 23.3, potassium 3.3, BUN of 65, creatinine 1.14. Patient is currently being weaned off the IV solucortef. He has had multiple episodes of loose stools and C. difficile will be checked. He remains off sedation is slightly more responsive today currently with no plans for lumbar puncture but will be going for an EEG tomorrow. 09/07/2024 Patient is seen in follow-up today continues to be in the ICU with neurology following scheduled for EEG. Patient is currently sitting up remains on mechanical ventilation off sedation and is following some commands for me on exam. Awaiting further neurological examination. FiO2 is currently 40% with a PEEP of 5. Nephrology following as well as kidney functions are improving with a creatinine of 1.09, potassium is 3.5 and sodium slightly elevated at 146. Continue with tube feeds and free water flushes and will follow-up with repeat labs. Overall prognosis is guarded at this time. Continue with antibiotics as well. Infectious diseases following. 09/08/2024 Patient seen in follow-up this morning and recently just extubated approximately 30 minutes prior to exam. Patient is continued on 5 L via nasal cannula and will wean as tolerated. Patient currently n.p.o. and tube feeds are on hold and awaiting follow-up speech eval to assess swallow. Patient continues to have copious amounts of diarrhea and C. difficile testing was negative. Will add anti-diarrheal agents and monitor for improvements. Consider Questran once diet is slightly more advanced. Patient with extensive weakness will need PT/OT therapy evaluation. Continue IV antibiotics with infectious disease following. White count remains elevated and patient is afebrile. 09/09/2024 Patient is seen in follow-up today maintained on 4 to 5 L via nasal cannula maintaining oxygen saturations. Diet has been advanced and recommend to continue with aspiration precautions. Patient is continued on antibiotics with infectious disease following. White count minimally trending down and patient is afebrile. Patient with significant weakness needs PT/OT therapy and will need ECF on discharge. Patient continues with a fecal management system having multiple episodes of loose stool and C. difficile testing was negative. Imodium added as needed. Review of systems: Constitutional: reports of fatigue, no fever, or chills Cardiovascular: No reports of chest pain or palpitations Respiratory: No reports of worsening shortness of breath, weak cough GI: No reports of nausea, vomiting, or diarrhea, reports to feeling hungry : No reports of dysuria or retention, has indwelling Daven[place] catheter Neurovascular: reports of continued weakness All medications have been reviewed Physical exam: GENERAL: This is a 63-year-old male who is lethargic although arousable recently extubated 09/08/2024, currently on 5 L via nasal cannula and off sedation, sitting up following some commands, elderly appearing, well-developed, obese HEENT: Pupils are round and equally reacting to light. EOMI. No scleral icterus. No conjunctival pallor. Normocephalic, atraumatic. No pharyngeal erythema. No thyromegaly. CARDIOVASCULAR: S1 and S2 muffled PULMONARY: Diminished breath sounds bilaterally with some coarse rhonchi and faint crackles noted ABDOMEN: Soft, obese, nontender, nondistended, normoactive bowel sounds. No p alpable organomegaly. MUSCULOSKELETAL: No joint swelling or deformity. EXTREMITIES: No cyanosis, clubbing, edematous and extremely weak NEUROLOGICAL: Gross neurological examination did not reveal any focal deficits. Diffusely weak SKIN: No rashes. no petechiae. Assessment: Acute hypoxic respiratory failure requiring intubation and mechanical ventilation, status post successful extubation 09/08/2024, currently maintained on 5 L via nasal cannula Bibasilar pneumonia suspicious for aspiration pneumonia partial small bowel obstruction and right inguinal hernia with loops of small bowel, improved, having multiple bowel movements, being started on clear liquids septic shock secondary to above, resolved Acute kidney injury, improving Marked right hydronephrosis, evaluated by urologist, appears chronic Leukocytosis could be steroid induced vs infection. History of Parkinson disease Stage II pressure injury to the coccyx and hospital-acquired, wound care was consulted Obesity with a BMI of 30.1 GI prophylaxis DVT prophylaxis Full code Plan: Continue in the ICU with pulmonary/critical care team consult Patient was continued on mechanical ventilation and successfully extubated 09/08/2024, currently maintained on 5 L via nasal cannula. Will encourage incentive spirometer use and wean FiO2 as tolerated. Off sedation and is awake following some commands Neurology following and EEG was abnormal with encephalopathy with no epileptiform discharges noted ID following and continued on zosyn, discussing possibly discontinuing as patient has received adequate antibiotic therapy Urology team consulted for his right hydronephrosis following along. No plans for surgical intervention at this time and most likely chronic. General Surgery consulted for concerns for partial small bowel obstruction with no need for surgical intervention currently. Currently having multiple episodes of diarrhea and C. difficile was negative. Will add antidiarrheals and also consider Questran once diet is advanced. Continue fecal management system for now until diarrhea is improved Patient evaluated by speech and is being started on clear liquids. Highly recommend continued aspiration precautions and head of the bed elevated 30 to 45 degrees at all times and supervision with meals. Repeat labs in the AM Overall prognosis guarded at this time Will discuss further with case management/social work regarding discharge planning and will need evaluation by PT/OT therapy The impression and plan of care has been dictated by Maye Johnson, Nurse Practitioner as directed. Dr. Frank MD I have performed a history and physical examination and medical decision making of this patient, discussed the same with the dictator, and agree with the dictators assessment and plan as written, documented as a scribe. Based on total visit time, I have performed more than 50% of this visit. Objective - Vital Signs Vital signs: Vital Signs Temp 97.8 F 09/10/24 04:00 Pulse 94 09/10/24 07:00 Resp 22 09/10/24 07:00 BP 144/80 09/10/24 07:00 Pulse Ox 97 09/10/24 07:00 FiO2 40 09/08/24 08:18 Intake & Output 09/09/24 09/10/24 09/10/24 18:59 06:59 18:59 Intake Total 156 1116 88 Output Total 1120 1640 85 Balance -964 -524 3 Weight 95.3 kg Intake: IV 156 116 13 0.9 kvo 80 10 Dextrose 5% in Water 1, 120 000 ml @ 10 mls/hr IV . Q24H [facility]S AT [facility] Rx#:[id number] Pressure Bag 36 36 3 Intake, IV Titration 1000 75 Amount Dextrose 5%-0.45% NaCl 1, 900 75 000 ml @ 75 mls/hr IV . [id number] COUNTS INCLUDE 234 BEDS AT [facility] Rx#:[id number] Piperacillin-Tazobactam 3 100 .375 gm In Sodium Chloride 0.9% 100 ml @ 25 mls/hr IVPB Q8HR [facility] Rx# :[id number] Output: Urine 1100 1540 85 Stool 20 100 Other: Voiding Method Indwelling Catheter Indwelling Catheter ABP, PAP, CO, CI - Last Documented Arterial Blood Pressure 138/56 - Labs CBC & Chem 7: 09/10/24 03:40 09/10/24 03:40 Labs: Abnormal Lab Results - Last 24 Hours (Table) 09/10/24 09/10/24 Range/Units 03:40 03:40 WBC 15.0 H (3.8-10.6) k/uL RBC 3.68 L (4.30-5.90) m/uL Hgb 10.7 L (13.0-17.5) gm/dL Hct 33.3 L (39.0-53.0) % Neutrophils # 13.2 H (1.3-7.7) k/uL Chloride 114 H (98-107) mmol/L BUN 36 H (9-20) mg/dL Glucose 103 H (74-99) mg/dL Calcium 8.1 L (8.4-10.2) mg/dL
[2024-09-10 11:28] LABS: Glucose,Whole Blood 105 mg/dL (70-110)
--- NOTE | 2024-09-10 11:54 | P.PN ---
Subjective Progress Note Date: 09/10/24 SURGICAL PROGRESS NOTE CHIEF COMPLAINT: Aspiration pneumonia HISTORY OF PRESENT ILLNESS: Patient remains in the ICU. Patient remains lethargic. Oral intake is poor due to his lethargy. Diarrhea appears to have improved. Reglan discontinued yesterday. Afebrile. WBC is down from 18-15 PHYSICAL EXAM: VITAL SIGNS: Reviewed. GENERAL: no acute distress ABDOMEN: Soft. nondistended. Nontender. Hernia reduced. Neuro: lethargic ASSESSMENT: 1. Partial small bowel obstruction with right inguinal hernia containing small bowel. Small bowel obstruction resolved. 2. Aspiration pneumonia and hypoxia 3. Severe protein calorie malnutrition PLAN: -Case discussed with medicine service. They are planning to discuss with family about PEG tube placement for nutrition support. Surgical service will remain on standby for possible PEG tube placement. -Continue supportive care Physician Iron Bender note has been reviewed by physician. Signing provider agrees with the documented findings, assessment, and plan of care. Attestation Patient seen and examined at bedside. Remains lethargic. Appears to continue to have bowel function. Bowel obstruction seems to be resolved at this point. Based on lethargy, oral intake is poor and high risk for aspiration. Medicine team with plan to discuss PEG tube placement. Will continue to follow. Leslie Wilcox, Objective - Vital Signs Vital signs: Vital Signs Temp 98.6 F 09/10/24 11:00 Pulse 75 09/10/24 11:00 Resp 34 H 09/10/24 11:00 BP 125/63 09/10/24 11:00 Pulse Ox 94 L 09/10/24 11:00 FiO2 40 09/08/24 08:18 Intake & Output 09/09/24 09/10/24 09/10/24 18:59 06:59 18:59 Intake Total 156 1116 215 Output Total 1120 1640 485 Balance -964 -524 -270 Weight 95.3 kg Intake: IV 156 116 65 0.9 kvo 80 50 Dextrose 5% in Water 1, 120 000 ml @ 10 mls/hr IV . Q24H [facility] Rx#:[id number] Pressure Bag 36 36 15 Intake, IV Titration 1000 150 Amount Dextrose 5%-0.45% NaCl 1, 900 150 000 ml @ 75 mls/hr IV . [id number] [facility] Rx#:[id number] Piperacillin-Tazobactam 3 100 .375 gm In Sodium Chloride 0.9% 100 ml @ 25 mls/hr IVPB Q8HR [facility] Rx# :[id number] Output: Urine 1100 1540 485 Stool 20 100 Other: Voiding Method Indwelling Catheter Indwelling Catheter Indwelling Catheter ABP, PAP, CO, CI - Last Documented Arterial Blood Pressure 129/51 - Labs CBC & Chem 7: 09/10/24 03:40 09/10/24 03:40 Labs: Abnormal Lab Results - Last 24 Hours (Table) 09/10/24 09/10/24 Range/Units 03:40 03:40 WBC 15.0 H (3.8-10.6) k/uL RBC 3.68 L (4.30-5.90) m/uL Hgb 10.7 L (13.0-17.5) gm/dL Hct 33.3 L (39.0-53.0) % Neutrophils # 13.2 H (1.3-7.7) k/uL Chloride 114 H (98-107) mmol/L BUN 36 H (9-20) mg/dL Glucose 103 H (74-99) mg/dL Calcium 8.1 L (8.4-10.2) mg/dL
--- NOTE | 2024-09-10 12:21 | P.PN ---
Subjective Patient is seen for follow-up for acute kidney injury. Serum sodium remains at 144. Urine output at 100-1 25 cc/h. Serum creatinine decreased to 1.1 today. Patient is extubated. He has failed swallow and evaluation and is n.p.o. Maintained on IV fluids Objective - Vital Signs Vital signs: Vital Signs Temp 98.6 F 09/10/24 11:00 Pulse 75 09/10/24 12:00 Resp 29 H 09/10/24 12:00 BP 114/58 09/10/24 12:00 Pulse Ox 95 09/10/24 12:00 FiO2 40 09/08/24 08:18 Intake & Output 09/09/24 09/10/24 09/10/24 18:59 06:59 18:59 Intake Total 156 1116 528 Output Total 1120 1640 585 Balance -964 -524 -57 Weight 95.3 kg Intake: IV 156 116 78 0.9 kvo 80 60 Dextrose 5% in Water 1, 120 000 ml @ 10 mls/hr IV . Q24H [facility] Rx#:[id number] Pressure Bag 36 36 18 Intake, IV Titration 1000 450 Amount Dextrose 5%-0.45% NaCl 1, 900 450 000 ml @ 75 mls/hr IV . [id number] [facility] Rx#:[id number] Piperacillin-Tazobactam 3 100 .375 gm In Sodium Chloride 0.9% 100 ml @ 25 mls/hr IVPB Q8HR [facility] Rx# :[id number] Output: Urine 1100 1540 585 Stool 20 100 Other: Voiding Method Indwelling Catheter Indwelling Catheter Indwelling Catheter ABP, PAP, CO, CI - Last Documented Arterial Blood Pressure 129/51 - Exam Patient has been extubated. He does not communicate much Examination of the heart S1 and S2 Examination of the lungs bilateral breath sounds are heard Abdomen is soft nontender Examination of lower extremities shows 1+ edema and scrotal edema, seems to have decreased - Labs CBC & Chem 7: 09/10/24 03:40 09/10/24 03:40 Labs: Abnormal Lab Results - Last 24 Hours (Table) 09/10/24 09/10/24 Range/Units 03:40 03:40 WBC 15.0 H (3.8-10.6) k/uL RBC 3.68 L (4.30-5.90) m/uL Hgb 10.7 L (13.0-17.5) gm/dL Hct 33.3 L (39.0-53.0) % Neutrophils # 13.2 H (1.3-7.7) k/uL Chloride 114 H (98-107) mmol/L BUN 36 H (9-20) mg/dL Glucose 103 H (74-99) mg/dL Calcium 8.1 L (8.4-10.2) mg/dL Assessment and Plan Assessment: 1. Acute kidney injury ATN currently nonoliguric secondary to sepsis and hypotension, improving. Solitary functioning kidney which is the left kidney. Patient has chronic hydronephrosis of right kidney with possibly minimal function. 2. Right hydronephrosis noted. This appears to be chronic. Urology on consult. No plans for intervention. 3. Acute hypoxic respiratory failure currently on on the ventilator. Status p ost extubation 4. Aspiration pneumonia 5. History of Parkinson's disease 6. Metabolic acidosis secondary to acute kidney injury 7. Hypokalemia status post replacement 8. Hypernatremia associated with free water deficit Plan: Continue D5.45 normal saline Repeat labs in a.m.
--- NOTE | 2024-09-10 14:23 | P.PN ---
Subjective Progress Note Date: 09/08/24 Principal diagnosis: Reason for follow-up is leukocytosis/aspiration pneumonia Patient is a 63-year-old male with a past medical history significant for hypertension presenting to the hospital for evaluation of nausea vomiting and increased work of breathing, CT of abdominal pelvis did shows evidence of bibasilar consolidation with air bronchogram and the patient had fever concerning for aspiration pneumonia, he did have elevated white count prompted this consultation. On today's evaluation that is 09/08/2023, Patient is afebrile this morning patient has been extubated he is currently on 5 L nasal cannula oxygen patient is lethargic did not provide any history patient will need pressor support no vomiting or any worsening diarrhea reported by the nursing staff Patient creatinine is 1.12 white count is down to 16.1 Objective - Vital Signs Vital signs: Vital Signs Temp 97.2 F L 09/08/24 12:00 Pulse 84 09/08/24 14:00 Resp 16 09/08/24 14:00 BP 132/71 09/08/24 14:00 Pulse Ox 95 09/08/24 14:00 FiO2 40 09/08/24 08:18 Intake & Output 09/07/24 09/08/24 09/08/24 18:59 06:59 18:59 Intake Total 1931 1893 454 Output Total 1175 1295 2275 Balance 756 798 1821 Weight 98.1 kg 98 kg Intake: IV 156 283 164 0.9 kvo 120 90 Dextrose 5% in Water 1, 60 40 000 ml @ 10 mls/hr IV . Q24H [facility] Rx#:[id number] Piperacillin-Tazobactam 3 100 100 .375 gm In Sodium Chloride 0.9% 100 ml @ 25 mls/hr IVPB Q8H [facility] Rx#: [id number] Pressure Bag 36 33 24 Oral 50 Tube Feeding 975 810 120 Other 800 800 120 Output: Urine 1175 1295 1875 Stool 400 Other: Voiding Method Indwelling Catheter Indwelling Catheter Indwelling Catheter ABP, PAP, CO, CI - Last Documented Arterial Blood Pressure 140/60 - Exam GENERAL DESCRIPTION: An elderly male lying in bed no distress RESPIRATORY SYSTEM: Unlabored breathing , decreased breath sounds at bases HEART: S1 S2 regular rate and rhythm , ABDOMEN: Soft , no tenderness EXTREMITIES: No edema feet - Labs CBC & Chem 7: 09/10/24 03:40 09/10/24 03:40 Labs: Abnormal Lab Results - Last 24 Hours (Table) 09/07/24 09/07/24 09/08/24 Range/Units 18:22 23:22 04:45 WBC (3.8-10.6) k/uL RBC (4.30-5.90) m/uL Hgb (13.0-17.5) gm/dL Hct (39.0-53.0) % Neutrophils # (Manual) (1.3-7.7) k/uL Metamyelocytes # (Man) (0) k/uL Myelocytes # (Manual) (0) k/uL ABG HCO3 29 H (21-25) mmol/L ABG Total CO2 31 H (19-24) mmol/L ABG O2 Saturation 97.4 H (94-97) % Hemoglobin 10.5 L (13.0-17.5) gm/dL Chloride (98-107) mmol/L BUN (9-20) mg/dL Glucose (74-99) mg/dL POC Glucose (mg/dL) 122 H 125 H (70-110) mg/dL Calcium (8.4-10.2) mg/dL 09/08/24 09/08/24 09/08/24 Range/Units 05:10 05:11 05:11 WBC 16.1 H (3.8-10.6) k/uL RBC 3.57 L (4.30-5.90) m/uL Hgb 10.5 L (13.0-17.5) gm/dL Hct 32.2 L (39.0-53.0) % Neutrophils # (Manual) 12.80 H (1.3-7.7) k/uL Metamyelocytes # (Man) 0.32 H (0) k/uL Myelocytes # (Manual) 0.16 H (0) k/uL ABG HCO3 (21-25) mmol/L ABG Total CO2 (19-24) mmol/L ABG O2 Saturation (94-97) % Hemoglobin (13.0-17.5) gm/dL Chloride 112 H (98-107) mmol/L BUN 56 H (9-20) mg/dL Glucose 130 H (74-99) mg/dL POC Glucose (mg/dL) 131 H (70-110) mg/dL Calcium 7.2 L (8.4-10.2) mg/dL Assessment and Plan (1) Leukocytosis Current Visit: Yes Status: Acute Code(s): D72.829 - ELEVATED WHITE BLOOD C ELL COUNT, UNSPECIFIED SNOMED Code(s): 308595140 (2) Aspiration pneumonia Current Visit: Yes Status: Acute Code(s): J69.0 - PNEUMONITIS DUE TO INHALATION OF FOOD AND VOMIT SNOMED Code(s): 859501473 Plan: 1patient with initial presentation to hospital with nausea and vomiting patient also have a fever on admission that has resolved as of 09/01/[address] abdominal pelvis did not show any obstruction but evidence of bibasilar consolidation concerning for possible aspiration pneumonia sputum has been candidal because patient did have elevated white count could be related to his pneumonia possible aspiration etiology versus steroids that has been discontinued however did have worsening of his white count question of oropharyngeal candidiasis as the patient did have positive sputum with Richelle 2-patient stool for C. difficile negative continue with Questran for symptomatic relief of his diarrhea 3-r patient is afebrile white count is trending down and will monitor closely 4patient to continue with Zosyn and Diflucan to cover for the possible oropharyngeal candidiasis Dictation was produced using [employer] dictation software. please excuse any grammatical, word or spelling errors. Time with Patient: Less than 30
--- NOTE | 2024-09-10 14:23 | P.PN ---
Subjective Progress Note Date: 09/09/24 Principal diagnosis: Reason for follow-up is leukocytosis/aspiration pneumonia Patient is a 63-year-old male with a past medical history significant for hypertension presenting to the hospital for evaluation of nausea vomiting and increased work of breathing, CT of abdominal pelvis did shows evidence of bibasilar consolidation with air bronchogram and the patient had fever concerning for aspiration pneumonia, he did have elevated white count prompted this consultation. On today's evaluation that is 09/09/2024,the patient continues to be afebrile patient is breathing comfortably currently on 5 L nasal cannula oxygen patient is awake but not answering any question no vomiting or worsening diarrhea changes reported by the nursing staff Patient creatinine is 1.11 is slightly up to 18.3 today Objective - Vital Signs Vital signs: Vital Signs Temp 98.1 F 09/08/24 20:00 Pulse 89 09/09/24 07:00 Resp 13 09/09/24 07:00 BP 113/67 09/09/24 07:00 Pulse Ox 96 09/09/24 07:00 FiO2 40 09/08/24 08:18 Intake & Output 09/08/24 09/09/24 09/09/24 18:59 06:59 18:59 Intake Total 556 156 13 Output Total 2825 1045 80 Balance -2269 -889 -67 Weight 96.3 kg Intake: IV 216 156 13 Dextrose 5% in Water 1, 80 120 10 000 ml @ 10 mls/hr IV . Q24H TRIP Rx#:[id number] Piperacillin-Tazobactam 3 100 .375 gm In Sodium Chloride 0.9% 100 ml @ 25 mls/hr IVPB Q8H TRIP Rx#: [id number] Pressure Bag 36 36 3 Oral 100 Tube Feeding 120 Other 120 Output: Urine 2425 1045 80 Stool 400 Other: Voiding Method Indwelling Catheter Indwelling Catheter ABP, PAP, CO, CI - Last Documented Arterial Blood Pressure 116/53 - Exam GENERAL DESCRIPTION: An elderly male lying in bed no distress RESPIRATORY SYSTEM: Unlabored breathing , decreased breath sounds at bases HEART: S1 S2 regular rate and rhythm , ABDOMEN: Soft , no tenderness EXTREMITIES: No edema feet - Labs CBC & Chem 7: 09/10/24 03:40 09/10/24 03:40 Labs: Abnormal Lab Results - Last 24 Hours (Table) 09/08/24 09/09/2409/09/25 Range/Units 09:36 04:05 04:05 WBC 18.3 H (3.8-10.6) k/uL RBC 3.94 L (4.30-5.90) m/uL Hgb 11.7 L (13.0-17.5) gm/dL Hct 35.6 L (39.0-53.0) % Neutrophils # 16.2 H (1.3-7.7) k/uL ABG pH 7.48 H (7.35-7.45) ABG HCO3 30 H (21-25) mmol/L ABG Total CO2 31 H (19-24) mmol/L ABG O2 Saturation 97.6 H (94-97) % Hemoglobin 11.3 L (13.0-17.5) gm/dL Sodium 147 H (137-145) mmol/L Chloride 112 H (98-107) mmol/L Carbon Dioxide 31 H (22-30) mmol/L BUN 50 H (9-20) mg/dL Calcium 7.9 L (8.4-10.2) mg/dL Assessment and Plan (1) Leukocytosis Current Visit: Yes Status: Acute Code(s): D72.829 - ELEVATED WHITE BLOOD CELL COUNT, UNSPECIFIED SNOMED Code(s): 881699902 (2) Aspiration pneumonia Current Visit: Yes Status: Acute Code(s): J69.0 - PNEUMONITIS DUE TO INHA LATION OF FOOD AND VOMIT SNOMED Code(s): 188843166 Plan: 1patient with initial presentation to hospital with nausea and vomiting patient also have a fever on admission that has resolved as of 09/01/[address] abdominal pelvis did not show any obstruction but evidence of bibasilar consolidation concerning for possible aspiration pneumonia sputum has been candidal because patient did have elevated white count could be related to his pneumonia possible aspiration etiology versus steroids that has been discontinued however did have worsening of his white count question of oropharyngeal candidiasis as the patient did have positive sputum with Richelle 2-patient stool for C. difficile negative patient will be treated with Questran for symptomatic relief of his diarrhea 3-r patient is afebrile white count is slightly elevated monitor closely 4patient currently being treated with Zosyn and Diflucan and monitor clinical course closely Dictation was produced using dragon dictation software. please excuse any grammatical, word or spelling errors. Time with Patient: Less than 30
--- NOTE | 2024-09-10 14:24 | P.PN ---
Subjective Progress Note Date: 09/10/24 Principal diagnosis: Reason for follow-up is leukocytosis/aspiration pneumonia Patient is a 63-year-old male with a past medical history significant for hypertension presenting to the hospital for evaluation of nausea vomiting and increased work of breathing, CT of abdominal pelvis did shows evidence of bibasilar consolidation with air bronchogram and the patient had fever concerning for aspiration pneumonia, he did have elevated white count prompted this consultation. On today's evaluation that is 09/10/2024,the patient remains to be afebrile, patient is on 2 L nasal cannula supplemental oxygen and does not seem to be any distressed, patient is a awake but did not answer any question no vomiting or any other changes reported by the nursing staff. Patient white count is down to 15,000, creatinine is 1.14 Objective - Vital Signs Vital signs: Vital Signs Temp 98.6 F 09/10/24 11:00 Pulse 75 09/10/24 12:00 Resp 29 H 09/10/24 12:00 BP 114/58 09/10/24 12:00 Pulse Ox 95 09/10/24 12:00 FiO2 40 09/08/24 08:18 Intake & Output 09/09/24 09/10/24 09/10/24 18:59 06:59 18:59 Intake Total 156 1116 528 Output Total 1120 1640 585 Balance -964 -524 -57 Weight 95.3 kg 95.3 kg Intake: IV 156 116 78 0.9 kvo 80 60 Dextrose 5% in Water 1, 120 000 ml @ 10 mls/hr IV . Q24H TRIP Rx#:[id number] Pressure Bag 36 36 18 Intake, IV Titration 1000 450 Amount Dextrose 5%-0.45% NaCl 1, 900 450 000 ml @ 75 mls/hr IV . [id number] TRIP Rx#:[id number] Piperacillin-Tazobactam 3 100 .375 gm In Sodium Chloride 0.9% 100 ml @ 25 mls/hr IVPB Q8HR TRIP Rx# :[id number] Output: Urine 1100 1540 585 Stool 20 100 Other: Voiding Method Indwelling Catheter Indwelling Catheter Indwelling Catheter ABP, PAP, CO, CI - Last Documented Arterial Blood Pressure 129/51 - Exam GENERAL DESCRIPTION: An elderly male lying in bed no distress RESPIRATORY SYSTEM: Unlabored breathing , decreased breath sounds at bases HEART: S1 S2 regular rate and rhythm , ABDOMEN: Soft , no tenderness EXTREMITIES: No edema feet - Labs CBC & Chem 7: 09/10/24 03:40 09/10/24 03:40 Labs: Abnormal Lab Results - Last 24 Hours (Table) 09/10/24 09/10/24 Range/Units 03:40 03:40 WBC 15.0 H (3.8-10.6) k/uL RBC 3.68 L (4.30-5.90) m/uL Hgb 10.7 L (13.0-17.5) gm/dL Hct 33.3 L (39.0-53.0) % Neutrophils # 13.2 H (1.3-7.7) k/uL Chloride 114 H (98-107) mmol/L BUN 36 H (9-20) mg/dL Glucose 103 H (74-99) mg/dL Calcium 8.1 L (8.4-10.2) mg/dL Assessment and Plan (1) Leukocytosis Current Visit: Yes Status: Acute Code(s): D72.829 - ELEVATED WHITE BLOOD CELL COUNT, UNSPECIFIED SNOMED Code(s): 085094860 (2) Aspiration pneumonia Current Visit: Yes Status: Acute Code(s): J69.0 - PNEUMONITIS DUE TO I NHALATION OF FOOD AND VOMIT SNOMED Code(s): 363355210 Plan: 1patient with initial presentation to hospital with nausea and vomiting patient also have a fever on admission that has resolved as of 09/01/[address] abdominal pelvis did not show any obstruction but evidence of bibasilar consolidation concerning for possible aspiration pneumonia sputum has been candidal because patient did have elevated white count could be related to his pneumonia possible aspiration etiology versus steroids that has been discontinued however did have worsening of his white count question of oropharyngeal candidiasis as the patient did have positive sputum with Richelle 2-patient stool for C. difficile negative patient will be treated with Questran for symptomatic relief of his diarrhea 3- patient is afebrile and the patient white count is trending down patient will be continued on Zosyn and Diflucan and continue supportive care Dictation was produced using [employer] dictation software. please excuse any grammatical, word or spelling errors. Time with Patient: Less than 30
--- NOTE | 2024-09-10 14:34 | P.PN ---
Subjective Progress Note Date: 09/10/24 On 09/07/2024, the patient is being seen for a follow-up. I the patient is known to have Parkinson's disease, quite extensive and the patient has a brain stimulator in place in addition to history of hypertension hyperlipidemia who presented to the emergency department with few days of nausea and emesis and shortness of breath. The patient was also having increased lethargy. In the emergency, the patient was in significant distress and the patient was placed on a BiPAP and a CAT scan of the abdomen and pelvis was obtained that showed bibasilar airspace disease consolidation with air bronchograms and small bilateral pleural effusion. There was also a right inguinal hernia containing loop of small bowel and possible partial small bowel obstruction. Normal caliber colon and mild fecal retention. Was also mild right-sided hydronephrosis and questionable obstruction at the level of the ureteropelvic junction. NG tube was inserted and there was a total of 1 L of fecal like material content evacuated. Subsequently, the patient went respiratory failure, while in the emergency, the patient was intubated and placed on a mechanical ventilator on 09/01/2024. For now, the patient remains intubated on the mechanical ventilator. This morning, the patient remains on assist-control mode rate of 24, tidal volume of 500, FiO2 40% with a PEEP of 5. Blood gases are still pending from this morning. The chest x-ray from today is showing a nerve stimulator over the left anterior chest area and some limited hazy bilateral pulmonary infiltrates especially on the right. The sputum sample collected on 09/01/2024 was consistent with Richelle and the patient remains on IV Zosyn. The patient has been off sedation for several days and unfortunately, the neurologic response has been suboptimal as the patient remains encephalopathic. CAT scan of the brain was done on 09/04/2024 that showed no acute abnormalities and the patient was seen by neurology. A lumbar puncture has not been done. The abdirashid haji remains on vital high-protein at rate of 75 cc an hour for nutritional support. IV fluids KVO. General surgical services on the case for the partial small bowel obstruction with right inguinal hernia and recommendations were conservative management for partial small bowel obstruction He is off propofol for 72 hours. EEG is to be done this morning. On 09/08/2024, the patient is being seen for a follow-up. Much more awake compared to yesterday. Following simple commands. Has an adequate cough. Noted the patient has been off sedation for the past 96 hours. This morning, the patient is on assist-control mode of mechanical ventilation at rate of 16, tidal volume of 500, FiO2 of 40% with a PEEP of 5. Blood gas showed a pH of 7.45 with a pCO2 of 43 and pO2 of 93. Hemodynamically stable. Cardiac rhythm is sinus. The patient continues to receive vital high-protein for enteral fe eding and nutritional support. The patient is having diarrhea and has a fecal management system in place. Otherwise, no other significant events overnight. Blood work from today shows a white cell count of 16 with a hemoglobin 10.5 and platelet count of 162. Sodium is at 144, BUN 66 with a creatinine of 1.1. Chest x-ray was reviewed and it shows adequate positioning of the orotracheal tube. The patient continues to have some bibasilar atelectatic changes and small effusion in the left lung base, overall, unchanged compared to yesterday's chest x-ray. EEG was consistent with moderate degree of encephalopathy and no seizure activity. On 09/09/2024, the patient is extubated and is currently on 5 L of oxygen nasal cannula. Weak cough. No signs of any respiratory distress. Chest x-ray showing patchy bibasilar pulm infiltrates/atelectasis. Neurologically, arousable, sluggish in his response, extremely weak, rigid, has some tremors and overall evaluation is consistent with his history of Parkinson's disease. Seems to be in a low mood state. He does communicate however is very sluggish and slow in his responses. The patient was given a dose of Lasix yesterday. Fluid balance is -3 L over the past 24 hours. Electrolytes from today showed a sodium level of 147, potassium of 4.3, bicarb of 31 with a BUN of 15 and creatinine 1.1. WBC count at 18.3 with a hemoglobin of 11.7. The patient remains on IV Zosyn and the patient is also on Diflucan. He has a brain stimulator and he remains on Sinemet. Rest of the medications remain unchanged. He was extubated on 09/08/2024. On 09/10/2024, the patient is being seen for a follow-up. The patient is still very much lethargic, weak, has a weak cough and has a poor ability to swallow. He is arousable, he follows simple commands. He has a very flat affect. Overall respiratory status is stable and the patient remains on oxygen 2 L/min nasal cannula. No interval worsening shortness of breath. Chest x-ray findings shows limited infiltration of the lung base bilaterally. Remains on half-normal saline at rate of 75 cc an hour. Remains on Zosyn and Diflucan. Fluid balance is -1.4 L over the past 24 hours. The white cell count is 15 with a hemoglobin 10.7 and platelet count of 207. BUN 36 with a creatinine of 1.1 and a sodium levels at 144 and a potassium level is at 4.0. I have made recommendations for a PEG tube insertion as I do not see this patient able to swallow in the immediate future. Overall respiratory status is stable. Hemodynamically stable and the patient is on no pressors. The patient remains extubated and currently on 2 L of oxygen by nasal cannula. Patient was extubated on 09/08/2024. Objective - Vital Signs Vital signs: Vital Signs Temp 97.8 F 09/10/24 04:00 Pulse 94 09/10/24 07:00 Resp 22 09/10/24 07:00 BP 144/80 09/10/24 07:00 Pulse Ox 97 09/10/24 07:00 FiO2 40 09/08/24 08:18 Intake & Output 09/09/24 09/10/24 09/10/24 18:59 06:59 18:59 Intake Total 156 1116 176 Output Total 1120 1640 185 Balance -964 -524 -9 Weight 95.3 kg Intake: IV 156 116 26 0.9 kvo 80 20 Dextrose 5% in Water 1, 120 000 ml @ 10 mls/hr IV . Q24H TRIP Rx#:[id number] Pressure Bag 36 36 6 Intake, IV Titration 1000 150 Amount Dextrose 5%-0.45% NaCl 1, 900 150 000 ml @ 75 mls/hr IV . [id number] TRIP Rx#:[id number] Piperacillin-Tazobactam 3 100 .375 gm In Sodium Chloride 0.9% 100 ml @ 25 mls/hr IVPB Q8HR TRIP Rx# :[id number] Output: Urine 1100 1540 185 Stool 20 100 Other: Voiding Method Indwelling Catheter Indwelling Catheter ABP, PAP, CO, CI - Last Documented Arterial Blood Pressure 138/56 - Exam No acute distress, lethargic, weak, rigid, consistent with Parkinson disease and the patient is not showing any signs of an acute respiratory distress. He has a weak cough currently on 2 L of O2 nasal cannula. HEENT examination is grossly unremarkable. Neck supple. Full range of motion. No adenopathy thyromegaly or neck vein distention. Cardiovascular examination reveals regular rhythm rate. S1-S2 normal. No S3 or S4. No discernible murmur noted. Lungs reveal mostly clear breath sounds. Scattered rhonchi are noted. No whe ezes or crackles. Breath sounds are equal. Abdomen soft with bowel sounds. No masses or tenderness. Extremities are intact. No cyanosis clubbing or edema. Skin is without rash or lesion. Neurologic rigid and weak and the patient has generalized motor weakness in all 4 extremities. Able to communicate. Exam is consistent with advanced Parkinson disease with cogwheel rigidity. The patient also has a very flat affect. - Labs CBC & Chem 7: 09/10/24 03:40 09/10/24 03:40 Labs: Abnormal Lab Results - Last 24 Hours (Table) 09/10/24 09/10/24 Range/Units 03:40 03:40 WBC 15.0 H (3.8-10.6) k/uL RBC 3.68 L (4.30-5.90) m/uL Hgb 10.7 L (13.0-17.5) gm/dL Hct 33.3 L (39.0-53.0) % Neutrophils # 13.2 H (1.3-7.7) k/uL Chloride 114 H (98-107) mmol/L BUN 36 H (9-20) mg/dL Glucose 103 H (74-99) mg/dL Calcium 8.1 L (8.4-10.2) mg/dL Assessment and Plan Plan: Acute hypoxemic and hypercapnic respiratory failure, secondary to bilateral lower lobe pneumonia likely of a aspiration, requiring intubation and mechanical ventilation as of 09/01/2024. The patient was extubated on 09/08/2024 and the patient is currently on 2 L of O2 nasal cannula. Some limited atelectatic change in infiltrates are seen in the lung base and the patient remains on IV Zosyn. Overall respiratory status is stable. Nevertheless, due to his advanced Parkinson's disease and chronic debility, the patient has a very poor cough and poor ability to do pulmonary toileting. Diminished level of consciousness, rule out metabolic/septic. Currently being evaluated by neurology. CT scan negative. Neurologically, improved, the patient is following simple commands. Overall neuroexam is consistent with Parkinson's disease. The patient continues to be profoundly weak and rigid. Neurologically, the patient is unchanged compared to yesterday. The patient continues to have a flat affect. Possible partial small bowel obstruction, on CT scan with a small right inguinal hernia, recovered Acute leukocytosis Acute kidney injury, recovered Right-sided hydronephrosis, urology on the case and no intervention has been recommended. This is to be followed as the patient's renal function continues to improve. History of hypertension. History of hyperlipidemia. History of Parkinson's disease Hyperchloremic hypernatremia Plan: Aggressive pulmonary toileting Incentive spirometer Swallow evaluation Reviewed the chest x-ray, no significant interval change Continue antibiotics and the patient remains on IV Zosyn continue Diflucan May consider PEG tube insertion if the patient is unable to meet his caloric requirements and swallow properly stool for C diff is negative, diarrhea is subsiding Start the patient on D5 half-normal saline at rate of 75 cc an hour and monitor the sodium level Long-term prognosis remains poor. Critical care evaluation, more than 30 minutes. Time with Patient: Greater than 30
--- NOTE | 2024-09-10 16:34 | P.PN ---
Subjective Progress Note Date: 09/09/24 09/09/2024: Patient was seen for a follow-up. Patient's and family members were present. Apparently patient does have DBS, and it was turned off on Saturday. Patient is currently receiving Sinemet 25/100, 1 tablet 3 times daily. Family reports that when he received Sinemet 2 tablets every 6 hours, he had severe hallucinations, to the point that he required Seroquel. Nurse reports that pat ient sometimes becomes spacey, does not respond. Family has mentioned that patient usually tremors a lot, but he is not tremoring. Patient does have DBS, but currently turned off since Saturday. His swallowing has worsened. Patient requires nectar thick diet. He pockets pills, not passing urine, having urinary retention. Also at risk of aspiration pneumonia. 09/08/2024: Patient was seen for a follow-up. Patient states he is feeling good, denies headache. Patient was extubated today. 09/07/2024: Patient was initially seen by Dr. Erwin Neal. Please refer to his note for details. Patient is a 63-year-old male with altered mental status and felt aspiration pneumonia. Does not appear meningoencephalitis as per Dr. Neal. I spoke to ICU staff, it appears patient is slightly improved as compared to how his examination was 3 days ago, but still not with it. Patient is intubated on the mechanical ventilator. Patient not on any IV drips. No seizure-like activity. Please refer to examination below. Some of the workup during this hospital visit consisted of: As Stated earlier on initial presentation patient had low-grade fever on the first few days in the hospital stay and the Tmax was 102.1 and he had been afebrile since September 02, 2024. Oxygen during hospital admission was as low as 75% White blood cell is trending down initially it was 11.7 got as high as 26,000 and currently is 17.8. AST is 91 ALT 14 Vitamin B12 is 1236 TSH is 1.50 Ammonia level 17 On initial presentation patient had acute kidney in injury which resolved was 2.8 for now it is 1.10 CT head is reported as no acute intracranial process. Nonspecific white matter changes, likely secondary to chronic small vessel ischemic disease. Postsur gical changes with stimulator leads identified within the bilateral basal ganglia. I personally reviewed the CT and agree with the report. Sputum culture is Richelle albicans Objective - Vital Signs Vital signs: Vital Signs Temp 97.3 F L 09/09/24 12:00 Pulse 88 09/09/24 16:53 Resp 18 09/09/24 15:00 BP 132/71 09/09/24 15:00 Pulse Ox 93 L 09/09/24 15:00 FiO2 40 09/08/24 08:18 Intake & Output 09/08/24 09/09/24 09/09/24 18:59 06:59 18:59 Intake Total 556 156 143 Output Total 2825 1045 1045 Balance -2269 -889 -902 Weight 96.3 kg Intake: IV 216 156 143 Dextrose 5% in Water 1, 80 120 110 000 ml @ 10 mls/hr IV . Q24H TRIP Rx#:[id number] Piperacillin-Tazobactam 3 100 .375 gm In Sodium Chloride 0.9% 100 ml @ 25 mls/hr IVPB Q8H TRIP Rx#: [id number] Pressure Bag 36 36 33 Oral 100 Tube Feeding 120 Other 120 Output: Urine 2425 1045 1025 Stool 400 20 Other: Voiding Method Indwelling Catheter Indwelling Catheter ABP, PAP, CO, CI - Last Documented Arterial Blood Pressure 116/53 - Exam On examination patient is laying in the bed, in no acute distress. Patient at times becomes emotional. Patient speaks, but somewhat mumbles. On cranial examination pupils are equal, round and reacting, extraocular muscles appears intact. He has some chin tremors noticed. No obvious seizure-like activity. 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 He is very weak proximally in the upper limbs. He is wiggling his feet and toes better than yesterday. Proximally he is very weak, but very stiff and rigid as well. Tone is increased moderate to severely on the right, mild to moderately on the left. No tremors at rest. Reflexes are diminished. Patient has had peripheral edema. Abdomen is soft nontender. Chest appears clear to auscultation. No crackles or murmurs. - Labs CBC & Chem 7: 09/10/24 03:40 09/10/24 03:40 Labs: Abnormal Lab Results - Last 24 Hours (Table) 09/09/24 09/09/24 Range/Units 04:05 04:05 WBC 18.3 H (3.8-10.6) k/uL RBC 3.94 L (4.30-5.90) m/uL Hgb 11.7 L (13.0-17.5) gm/dL Hct 35.6 L (39.0-53.0) % Neutrophils # 16.2 H (1.3-7.7) k/uL Sodium 147 H (137-145) mmol/L Chloride 112 H (98-107) mmol/L Carbon Dioxide 31 H (22-30) mmol/L BUN 50 H (9-20) mg/dL Calcium 7.9 L (8.4-10.2) mg/dL Assessment and Plan Assessment: Altered mental status, likely due to metabolic encephalopathy. Improved. Reasons multifactorial as mentioned below. Status post extubation 09/08/2024 Septic encephalopathy from aspiration pneumonia, metabolic encephalopathy. Worsening parkinsonism CT of the head is unremarkable for any acute or subacute process. Acute acute kidney injury--resolved Fever and leukocytosis and it was felt patient likely has aspiration pneumonia a nd its likely due to his vomiting episode Slight transaminitis Acute hypoxemic and hypercapnic respiratory failure secondary to aspiration pneumonia the patient is intubated on the ventilator History of Parkinson disease status post Deep brain stimulator (DBS) History of hypertension Hyperlipidemia Plan: Patient is extubated. He is doing better. He is following directions, but patient continues to be quite rigid, bradykinetic. Possible Parkinson's worse lately. Increase Sinemet to 25/100, 1 tablet 4 times daily. Also turn back the DBS. Family is aware how to turn back on the DBS. EEG was performed, which was abnormal due to background slowing of moderate degree, suggestive of generalized cerebral dysfunction as can be seen with toxic metabolic encephalopathy or due to diffuse structural brain abnormality. No focal, lateralized or epileptiform activity was seen. Infection diseases consulted and Dr. Neal discussed with ID and agreed to hold off on pursuing lumbar puncture since does not seem to be meningitis or encephalitis it was felt mostly aspiration pneumonia. C. difficile negative Will defer the rest of the medical management to primary and other specialist Discussed with family members..
[2024-09-10 16:42] LABS: Glucose,Whole Blood 99 mg/dL (70-110)
--- NOTE | 2024-09-10 16:59 | P.PN ---
Subjective Progress Note Date: 09/10/24 09/10/2024: Patient was seen for a follow-up. Patient is laying in the bed. Patient states "I am fine". Regarding headache patient states "no headache, not really". Patient keeps his eyes closed. His speech is very clear. Please refer to examination below. Patient's DBS has been turned on. 09/09/2024: Patient was seen for a follow-up. Patient's and family members were present. Apparently patient does have DBS, and it was turned off on Saturday. Patient is currently receiving Sinemet 25/100, 1 tablet 3 times daily. Family reports that when he received Sinemet 2 tablets every 6 hours, he had severe hallucinations, to the point that he required Seroquel. Nurse reports that patient sometimes becomes spacey, does not respond. Family has mentioned that patient usually tremors a lot, but he is not tremoring. Patient does have DBS, but currently turned off since Saturday. His swallowing has worsened. Patient requires nectar thick diet. He pockets pills, not passing urine, having urinary retention. Also at risk of aspiration pneumonia. 09/08/2024: Patient was seen for a follow-up. Patient states he is feeling good, denies headache. Patient was extubated today. 09/07/2024: Patient was initially seen by Dr. Erwin Neal. Please refer to his note for details. Patient is a 63-year-old male with altered mental status and felt aspiration pneumonia. Does not appear meningoencephalitis as per Dr. Neal. I spoke to ICU staff, it appears patient is slightly improved as compared to how his examination was 3 days ago, but still not with it. Patient is intubated on the mechanical ventilator. Patient not on any IV drips. No seizure-like activity. Please refer to examination below. Some of the workup during this hospital visit consisted of: As Stated earlier on initial presentation patient had low-grade fever on the first few days in the hospital stay and the Tmax was 102.1 and he had been afebrile since September 02, 2024. Oxygen during hospital admission was as low as 75% White blood cell is trending down initially it was 11.7 got as high as 26,000 and currently is 17.8. AST is 91 ALT 14 Vitamin B12 is 1236 TSH is 1.50 Ammonia level 17 On initial presentation patient had acute kidney in injury which resolved was 2.8 for now it is 1.10 CT head is reported as no acute intracranial process. Nonspecific white matter changes, likely secondary to chronic small vessel ischemic disease. Postsurgical changes with stimulator leads identified within the bilateral basal ganglia. I personally reviewed the CT and agree with the report. Sputum culture is Richelle albicans Objective - Vital Signs Vital signs: Vital Signs Temp 98.6 F 09/10/24 11:00 Pulse 79 09/10/24 15:00 Resp 29 H 09/10/24 15:00 BP 142/70 09/10/24 15:00 Pulse Ox 95 09/10/24 15:00 FiO2 40 09/08/24 08:18 Intake & Output 09/09/24 09/10/24 09/10/24 18:59 06:59 18:59 Intake Total 156 1116 792 Output Total 1120 1640 810 Balance -964 -524 -18 Weight 95.3 kg 95.3 kg Intake: IV 156 116 117 0.9 kvo 80 90 Dextrose 5% in Water 1, 120 000 ml @ 10 mls/hr IV . Q24H [facility] Rx#:[id number] Pressure Bag 36 36 27 Intake, IV Titration 1000 675 Amount Dextrose 5%-0.45% NaCl 1, 900 675 000 ml @ 75 mls/hr IV . [id number] [facility] Rx#:[id number] Piperacillin-Tazobactam 3 100 .375 gm In Sodium Chloride 0.9% 100 ml @ 25 mls/hr IVPB Q8HR [facility] Rx# :[id number] Output: Urine 1100 1540 810 Stool 20 100 Other: Voiding Method Indwelling Catheter Indwelling Catheter Indwelling Catheter ABP, PAP, CO, CI - Last Documented Arterial Blood Pressure 129/51 - Exam On examination patient is laying in the bed, in no acute distress. Patient speaks, very hypophonic, but is very clear with no aphasia or dysarthria. Limited speech was very appropriate. On cranial examination pupils are equal, round and reacting, extraocular muscles appears intact. No obvious seizure-like activity. 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 He is very weak proximally in the upper limbs. He is wiggling his feet and toes better than yesterday. Tone is increased mildly bilaterally. No tremors at rest. Reflexes are diminished. Patient has had peripheral edema. Abdomen is soft n ontender. Chest appears clear to auscultation. No crackles or murmurs. - Labs CBC & Chem 7: 09/10/24 03:40 09/10/24 03:40 Labs: Abnormal Lab Results - Last 24 Hours (Table) 09/10/24 09/10/24 Range/Units 03:40 03:40 WBC 15.0 H (3.8-10.6) k/uL RBC 3.68 L (4.30-5.90) m/uL Hgb 10.7 L (13.0-17.5) gm/dL Hct 33.3 L (39.0-53.0) % Neutrophils # 13.2 H (1.3-7.7) k/uL Chloride 114 H (98-107) mmol/L BUN 36 H (9-20) mg/dL Glucose 103 H (74-99) mg/dL Calcium 8.1 L (8.4-10.2) mg/dL Assessment and Plan Assessment: Altered mental status, likely due to metabolic encephalopathy. Improved. Reasons multifactorial as mentioned below. Status post extubation 09/08/2024 Septic encephalopathy from aspiration pneumonia, metabolic encephalopathy. Worsening parkinsonism CT of the head is unremarkable for any acute or subacute process. Acute acute kidney injury--resolved Fever and leukocytosis and it was felt patient likely has aspiration pneumonia and its likely due to his vomiting episode Slight transaminitis Acute hypoxemic and hypercapnic respiratory failure secondary to aspiration pneumonia the patient is intubated on the ventilator History of Parkinson disease status post Deep brain stimulator (DBS) History of hypertension Hyperlipidemia Plan: Patient continues to be lethargic, does answer limited amount, but appropriately. Does not open his eyes. His parkinsonism has improved with less rigidity since increasing the dose of Sinemet, and resuming his DBS. He just moving his hands and feet but not proximally. No obvious focality. Continue Sinemet to 25/100, 1 tablet 4 times daily. Also turned back the DBS by family members. EEG was performed, which was abnormal due to background slowing of moderate degree, suggestive of generalized cerebral dysfunction as can be seen with toxic metabolic encephalopathy or due to diffuse structural brain abnormality. No focal, lateralized or epileptiform activity was seen. Infection diseases consulted and Dr. Neal discussed with ID and agreed to hold off on pursuing lumbar puncture since does not seem to be meningitis or encephalitis it was felt mostly aspiration pneumonia. C. difficile negative Will defer the rest of the medical management to primary and other specialist If continues to be weak, then we will do repeat CT head in the morning.
[2024-09-10 20:32] LABS: Glucose,Whole Blood 92 mg/dL (70-110)
[2024-09-11 06:12] LABS: Glucose,Whole Blood 107 mg/dL (70-110)
[2024-09-11 07:35] LABS: African American GFR (CKD) >90 (>60 ml/min/1.73 sqM); Anion Gap 4 mmol/L; Blood Urea Nitrogen 25 mg/dL (9-20); Calcium 7.9 mg/dL (8.4-10.2); Carbon Dioxide 25 mmol/L (22-30); Chloride 115 mmol/L (98-107); Glucose 94 mg/dL (74-99); Non-African American GFR(CKD) 84 (>60 ml/min/1.73 sqM); Sodium 144 mmol/L (137-145)
[2024-09-11 08:05] LABS: HCT 32.5 % (39.0-53.0); HGB 10.9 gm/dL (13.0-17.5); MCH 29.7 pg (25.0-35.0); MCHC 33.6 g/dL (31.0-37.0); MCV 88.4 fL (80.0-100.0); Mean Platelet Volume 7.8; Platelet Count 193 k/uL (150-450); RBC 3.68 m/uL (4.30-5.90); RDW 14.4 % (11.5-15.5)
[2024-09-11 09:12] LABS: Eosinophils # (M) 0.13 k/uL (0-0.7); Lymphocytes # (M) 1.56 k/uL (1.0-4.8); Monocytes # (M) 0.52 k/uL (0-1.0); Neutrophils # (M) 10.79 k/uL (1.3-7.7); Neutrophils % (M) 83 %; Nucleated Red Blood Cells 0 /100 WBC (0-0); Total Cells Counted 100
[2024-09-11 09:14] LABS: RBC Morphology Normal
--- NOTE | 2024-09-11 09:24 | P.PN ---
Subjective Progress Note Date: 09/10/24 Patient evaluated today in the intensive care unit remains on the mechanical ventilator. Repeat chest x-ray today shows persistent multifocal acute infiltrate. Patient remains on a course of IV Zosyn with concern for aspiration pneumonia. Patient has been off sedation for over 48 hours now without im provement in his mentation neurology was consulted for the same. EEG has been ordered. Additionally neurology had recommended infectious disease consultation secondary to the elevated white blood cell count currently today to 17.8. His renal function has improved. He continues on IV hydrocortisone. 09/06/2024 Patient evaluated in follow-up in the intensive care unit. Chest x-ray shows persistent bilateral multifocal infiltrates. White blood cell count today 23.3, potassium 3.3, BUN of 65, creatinine 1.14. Patient is currently being weaned off the IV solucortef. He has had multiple episodes of loose stools and C. difficile will be checked. He remains off sedation is slightly more responsive today currently with no plans for lumbar puncture but will be going for an EEG tomorrow. 09/07/2024 Patient is seen in follow-up today continues to be in the ICU with neurology following scheduled for EEG. Patient is currently sitting up remains on mechanical ventilation off sedation and is following some commands for me on exam. Awaiting further neurological examination. FiO2 is currently 40% with a PEEP of 5. Nephrology following as well as kidney functions are improving with a creatinine of 1.09, potassium is 3.5 and sodium slightly elevated at 146. Continue with tube feeds and free water flushes and will follow-up with repeat labs. Overall prognosis is guarded at this time. Continue with antibiotics as well. Infectious diseases following. 09/08/2024 Patient seen in follow-up this morning and recently just extubated approximately 30 minutes prior to exam. Patient is continued on 5 L via nasal cannula and will wean as tolerated. Patient currently n.p.o. and tube feeds are on hold and awaiting follow-up speech eval to assess swallow. Patient continues to have copious amounts of diarrhea and C. difficile testing was negative. Will add anti-diarrheal agents and monitor for improvements. Consider Questran once diet is slightly more advanced. Patient with extensive weakness will need PT/OT therapy evaluation. Continue IV antibiotics with infectious disease following. White count remains elevated and patient is afebrile. 09/09/2024 Patient is seen in follow-up today maintained on 4 to 5 L via nasal cannula maintaining oxygen saturations. Diet has been advanced and recommend to continue with aspiration precautions. Patient is continued on antibiotics with infectious disease following. White count minimally trending down and patient is afebrile. Patient with significant weakness needs PT/OT therapy and will need ECF on discharge. Patient continues with a fecal management system having multiple episodes of loose stool and C. difficile testing was negative. Imodium added as needed. 09/10/2024 Patient continues in the ICU on 4 L via nasal cannula. Patient is tolerating diet thus far although strongly recommend aspiration precautions. Patient is significantly weak including swallow and upper and lower extremities. Patient is working with physical therapy and will need extensive therapy on discharge. Patient to be evaluated by PT/OT with social work following working on possible discharge planning to ECF. Patient continues to have significant diarrhea maintained on fecal management system and C. difficile testing has been negative. Patient will continue on antibiotics and will discuss further with infectious disease regarding initiating Questran. Review of systems: Constitutional: reports of fatigue, no fever, or chills Cardiovascular: No reports of chest pain or palpitations Respiratory: No reports of worsening shortness of breath, weak cough GI: No reports of nausea, vomiting, or diarrhea, reports to feeling hungry : No reports of dysuria or retention, has indwelling [place] catheter Neurovascular: reports of continued weakness All medications have been reviewed Physical exam: GENERAL: This is a 63-year-old male who is lethargic although arousable recently extubated 09/08/2024, currently on 5 L via nasal cannula and off sedation, sitting up following some commands, elderly appearing, well-developed, obese HEENT: Pupils are round and equally reacting to light. EOMI. No scleral icterus. No conjunctival pallor. Normocephalic, atraumatic. No pharyngeal erythema. No thyromegaly. CARDIOVASCULAR: S1 and S2 muffled PULMONARY: Diminished breath sounds bilaterally with some coarse rhonchi and faint crackles noted ABDOMEN: Soft, obese, nontender, nondistended, normoactive bowel sounds. No palpable organomegaly. MUSCULOSKELETAL: No joint swelling or deformity. EXTREMITIES: No cyanosis, clubbing, edematous and extremely weak NEUROLOGICAL: Gross neurological examination did not reveal any focal deficits. Diffusely weak SKIN: No rashes. no petechiae. Assessment: Acute hypoxic respiratory failure requiring intubation and mechanical ventilation, status post successful extubation 09/08/2024, currently maintained on 5 L via nasal cannula Bibasilar pneumonia suspicious for aspiration pneumonia partial small bowel obstruction and right inguinal hernia with loops of small bowel, improved, having multiple bowel movements, being started on clear liquids septic shock secondary to above, resolved Acute kidney injury, improving Marked right hydronephrosis, evaluated by urologist, appears chronic Leukocytosis could be steroid induced vs infection. History of Parkinson disease Stage II pressure injury to the coccyx and hospital-acquired, wound care was consulted Obesity with a BMI of 30.1 GI prophylaxis DVT prophylaxis Full code Plan: Continue in the ICU with pulmonary/critical care team consult Patient was continued on mechanical ventilation and successfully extubated 09/08/2024, currently maintained on 5 L via nasal cannula. Will encourage incentive spirometer use and wean FiO2 as tolerated. Patient is having difficulties as he has extreme upper and lower extremity weakness and unable to hold the spirometer Neurology following and EEG was abnormal with encephalopathy with no epileptiform discharges noted ID following and continued on zosyn, discussing possibly discontinuing as patient has received adequate antibiotic therapy Urology team consulted for his right hydronephrosis following along. No plans for surgical intervention at this time and most likely chronic. General Surgery consulted for concerns for partial small bowel obstruction with no need for surgical intervention currently. Currently having multiple episodes of diarrhea and C. difficile was negative. Will add antidiarrheals and also consider Questran once diet is advanced. Continue fecal management system for n ow until diarrhea is improved Patient evaluated by speech and is being started on clear liquids. Highly recommend continued aspiration precautions and head of the bed elevated 30 to 45 degrees at all times and supervision with meals. Repeat labs in the AM Overall prognosis guarded at this time Will discuss further with case management/social work regarding discharge planning and will need evaluation by PT/OT therapy The impression and plan of care has been dictated by Maye Johnson, Nurse Practitioner as directed. Dr. Frank MD I have performed a history and physical examination and medical decision making of this patient, discussed the same with the dictator, and agree with the dictators assessment and plan as written, documented as a scribe. Based on total visit time, I have performed more than 50% of this visit. Objective - Vital Signs Vital signs: Vital Signs Temp 97.8 F 09/10/24 04:00 Pulse 94 09/10/24 07:00 Resp 22 09/10/24 07:00 BP 144/80 09/10/24 07:00 Pulse Ox 97 09/10/24 07:00 FiO2 40 09/08/24 08:18 Intake & Output 09/09/24 09/10/24 09/10/24 18:59 06:59 18:59 Intake Total 156 1116 176 Output Total 1120 1640 185 Balance -964 -524 -9 Weight 95.3 kg Intake: IV 156 116 26 0.9 kvo 80 20 Dextrose 5% in Water 1, 120 000 ml @ 10 mls/hr IV . Q24H [facility] Rx#:[id number] Pressure Bag 36 36 6 Intake, IV Titration 1000 150 Amount Dextrose 5%-0.45% NaCl 1, 900 150 000 ml @ 75 mls/hr IV . [id number] [facility] Rx#:[id number] Piperacillin-Tazobactam 3 100 .375 gm In Sodium Chloride 0.9% 100 ml @ 25 mls/hr IVPB Q8HR [facility] Rx# :[id number] Output: Urine 1100 1540 185 Stool 20 100 Other: Voiding Method Indwelling Catheter Indwelling Catheter ABP, PAP, CO, CI - Last Documented Arterial Blood Pressure 138/56 - Labs CBC & Chem 7: 09/11/24 07:45 09/11/24 07:01 Labs: Abnormal Lab Results - Last 24 Hours (Table) 09/10/24 09/10/24 Range/Units 03:40 03:40 WBC 15.0 H (3.8-10.6) k/uL RBC 3.68 L (4.30-5.90) m/uL Hgb 10.7 L (13.0-17.5) gm/dL Hct 33.3 L (39.0-53.0) % Neutrophils # 13.2 H (1.3-7.7) k/uL Chloride 114 H (98-107) mmol/L BUN 36 H (9-20) mg/dL Glucose 103 H (74-99) mg/dL Calcium 8.1 L (8.4-10.2) mg/dL
[2024-09-11] MEDS: DEXTROSE 5% IN WATER 1,000 ML IV SCH (10:10)
--- NOTE | 2024-09-11 10:24 | P.PN ---
Subjective Patient is seen for follow-up for acute kidney injury. Serum sodium remains at 144. Urine output at 100-1 25 cc/h. Serum creatinine decreased to 0.9 today. Patient is extubated. He has failed swallow and evaluation and is n.p.o. Maintained on IV fluids Objective - Vital Signs Vital signs: Vital Signs Temp 98.6 F 09/11/24 04:00 Pulse 74 09/11/24 08:36 Resp 18 09/11/24 07:00 BP 145/72 09/11/24 07:00 Pulse Ox 96 09/11/24 07:00 FiO2 40 09/08/24 08:18 Intake & Output 09/10/24 09/11/24 09/11/24 18:59 06:59 18:59 Intake Total 1056 394 26 Output Total 1020 1525 275 Balance 36 -1131 -249 Weight 95.3 kg 91.5 kg Intake: IV 156 169 26 0.9 kvo 120 130 20 Pressure Bag 36 39 6 Intake, IV Titration 900 225 Amount Dextrose 5%-0.45% NaCl 1, 900 225 000 ml @ 75 mls/hr IV . [id number] [facility] Rx#:[id number] Output: Urine 1020 1525 275 Other: Voiding Method Indwelling Catheter Indwelling Catheter Indwelling Catheter ABP, PAP, CO, CI - Last Documented Arterial Blood Pressure 129/51 - Exam Patient has been extubated. He does not communicate much. He had been awake and answering questions earlier. Examination of the heart S1 and S2 Examination of the lungs bilateral breath sounds are heard Abdomen is soft nontender Examination of lower extremities shows 1+ edema and scrotal edema, scrotal edema noted - Labs CBC & Chem 7: 09/11/24 07:45 09/11/24 07:01 Labs: Abnormal Lab Results - Last 24 Hours (Table) 09/11/24 09/11/24 Range/Units 07:01 07:45 WBC 13.0 H (3.8-10.6) k/uL RBC 3.68 L (4.30-5.90) m/uL Hgb 10.9 L (13.0-17.5) gm/dL Hct 32.5 L (39.0-53.0) % Neutrophils # (Manual) 10.79 H (1.3-7.7) k/uL Chloride 115 H (98-107) mmol/L BUN 25 H (9-20) mg/dL Calcium 7.9 L (8.4-10.2) mg/dL Assessment and Plan Assessment: 1. Acute kidney injury ATN currently nonoliguric secondary to sepsis and hypotension, improving. Solitary functioning kidney which is the left kidney. Patient has chronic hydronephrosis of right kidney with possibly minimal function. 2. Right hydronephrosis noted. This appears to be chronic. Urology on consult. No plans for intervention. 3. Acute hypoxic respiratory failure currently on on the ventilator. Status post extubation 4. Aspiration pneumonia 5. History of Parkinson's disease 6. Metabolic acidosis secondary to acute kidney injury 7. Hypokalemia status post replacement 8. Hypernatremia associated with free water deficit Plan: Change to D5W at 50 cc an hour Encourage increased oral free water intake which needs to be thickened. Repeat labs in a.m.
[2024-09-11 11:08] LABS: Glucose,Whole Blood 88 mg/dL (70-110)
--- NOTE | 2024-09-11 12:50 | FL ---
Exam Date: 09/11/2024 12:44 PM. Modified barium swallow for dysphagia. Consistencies administered: Various consistency of barium. Fluoro time: 1.17 min No images were sent to PACS. Please see speech pathology report. DAP: not reported mGym2 [facility], , 09/11/2024 12:47 PM
--- NOTE | 2024-09-11 13:22 | P.PN ---
Subjective Progress Note Date: 09/11/24 SURGICAL PROGRESS NOTE CHIEF COMPLAINT: Aspiration pneumonia HISTORY OF PRESENT ILLNESS: Patient remains in the ICU. Patient remains lethargic. He is able to open his eyes and say a few words. Oral intake is poor due to his lethargy. Diarrhea appears to have improved. FMS was discontinued. Patient scheduled for MBS today. Afebrile. WBC is down from 15- 13 Hgb 10.9 PHYSICAL EXAM: VITAL SIGNS: Reviewed. GENERAL: no acute distress ABDOMEN: Soft. nondistended. Nontender. Neuro: lethargic ASSESSMENT: 1. Partial small bowel obstruction with right inguinal hernia containing small bowel. Small bowel obstruction resolved. 2. Aspiration pneumonia and hypoxia 3. Severe protein calorie malnutrition 4. History of Parkinson's PLAN: -Awaiting MBS study results -Recommend starting with NG tube or Dobbhoff placement for tube feeds -Surgical service on standby for possible PEG tube placement Physician Linux Kernel Engineer note has been reviewed by physician. Signing provider agrees with the documented findings, assessment, and plan of care. Objective - Vital Signs Vital signs: Vital Signs Temp 98.2 F 09/11/24 08:00 Pulse 90 09/11/24 11:31 Resp 31 H 09/11/24 10:00 BP 142/66 09/11/24 10:00 Pulse Ox 96 09/11/24 10:00 FiO2 40 09/08/24 08:18 Intake & Output 09/10/24 09/11/24 09/11/24 18:59 06:59 18:59 Intake Total 1056 394 52 Output Total 1020 1525 475 Balance 36 -6221 -423 Weight 95.3 kg 91.5 kg Intake: IV 156 169 52 0.9 kvo 120 130 40 Pressure Bag 36 39 12 Intake, IV Titration 900 225 Amount Dextrose 5%-0.45% NaCl 1, 900 225 000 ml @ 75 mls/hr IV . [id number] [facility] Rx#:[id number] Output: Urine 1020 1525 475 Other: Voiding Method Indwelling Catheter Indwelling Catheter Indwelling Catheter ABP, PAP, CO, CI - Last Documented Arterial Blood Pressure 129/51 - Labs CBC & Chem 7: 09/11/24 07:45 09/11/24 07:01 Labs: Abnormal Lab Results - Last 24 Hours (Table) 09/11/24 09/11/24 Range/Units 07:01 07:45 WBC 13.0 H (3.8-10.6) k/uL RBC 3.68 L (4.30-5.90) m/uL Hgb 10.9 L (13.0-17.5) gm/dL Hct 32.5 L (39.0-53.0) % Neutrophils # (Manual) 10.79 H (1.3-7.7) k/uL Chloride 115 H (98-107) mmol/L BUN 25 H (9-20) mg/dL Calcium 7.9 L (8.4-10.2) mg/dL Assessment and Plan Assessment: ok for feeds, recommending tube feeds as patient is lethargic however patient passed swallow study. High aspiration risk, please incorporate aspiration precautions Time with Patient: Less than 30
--- NOTE | 2024-09-11 14:10 | P.PN ---
Subjective Progress Note Date: 09/11/24 On 09/07/2024, the patient is being seen for a follow-up. I the patient is known to have Parkinson's disease, quite extensive and the patient has a brain stimulator in place in addition to history of hypertension hyperlipidemia who presented to the emergency department with few days of nausea and emesis and shortness of breath. The patient was also having increased lethargy. In the emergency, the patient was in significant distress and the patient was placed on a BiPAP and a CAT scan of the abdomen and pelvis was obtained that showed bibasilar airspace disease consolidation with air bronchograms and small bilateral pleural effusion. There was also a right inguinal hernia containing loop of small bowel and possible partial small bowel obstruction. Normal caliber colon and mild fecal retention. Was also mild right-sided hydronephrosis and questionable obstruction at the level of the ureteropelvic junction. NG tube was inserted and there was a total of 1 L of fecal like material content evacuated. Subsequently, the patient went respiratory failure, while in the emergency, the patient was intubated and placed on a mechanical ventilator on 09/01/2024. For now, the patient remains intubated on the mechanical ventilator. This morning, the patient remains on assist-control mode rate of 24, tidal volume of 500, FiO2 40% with a PEEP of 5. Blood gases are still pending from this morning. The chest x-ray from today is showing a nerve stimulator over the left anterior chest area and some limited hazy bilateral pulmonary infiltrates especially on the right. The sputum sample collected on 09/01/2024 was consistent with Richelle and the patient remains on IV Zosyn. The patient has been off sedation for several days and unfortunately, the neurologic response has been suboptimal as the patient remains encephalopathic. CAT scan of the brain was done on 09/04/2024 that showed no acute abnormalities and the patient was seen by neurology. A lumbar puncture has not been done. The abdirashid haji remains on vital high-protein at rate of 75 cc an hour for nutritional support. IV fluids KVO. General surgical services on the case for the partial small bowel obstruction with right inguinal hernia and recommendations were conservative management for partial small bowel obstruction He is off propofol for 72 hours. EEG is to be done this morning. On 09/08/2024, the patient is being seen for a follow-up. Much more awake compared to yesterday. Following simple commands. Has an adequate cough. Noted the patient has been off sedation for the past 96 hours. This morning, the patient is on assist-control mode of mechanical ventilation at rate of 16, tidal volume of 500, FiO2 of 40% with a PEEP of 5. Blood gas showed a pH of 7.45 with a pCO2 of 43 and pO2 of 93. Hemodynamically stable. Cardiac rhythm is sinus. The patient continues to receive vital high-protein for enteral fe eding and nutritional support. The patient is having diarrhea and has a fecal management system in place. Otherwise, no other significant events overnight. Blood work from today shows a white cell count of 16 with a hemoglobin 10.5 and platelet count of 162. Sodium is at 144, BUN 66 with a creatinine of 1.1. Chest x-ray was reviewed and it shows adequate positioning of the orotracheal tube. The patient continues to have some bibasilar atelectatic changes and small effusion in the left lung base, overall, unchanged compared to yesterday's chest x-ray. EEG was consistent with moderate degree of encephalopathy and no seizure activity. On 09/09/2024, the patient is extubated and is currently on 5 L of oxygen nasal cannula. Weak cough. No signs of any respiratory distress. Chest x-ray showing patchy bibasilar pulm infiltrates/atelectasis. Neurologically, arousable, sluggish in his response, extremely weak, rigid, has some tremors and overall evaluation is consistent with his history of Parkinson's disease. Seems to be in a low mood state. He does communicate however is very sluggish and slow in his responses. The patient was given a dose of Lasix yesterday. Fluid balance is -3 L over the past 24 hours. Electrolytes from today showed a sodium level of 147, potassium of 4.3, bicarb of 31 with a BUN of 15 and creatinine 1.1. WBC count at 18.3 with a hemoglobin of 11.7. The patient remains on IV Zosyn and the patient is also on Diflucan. He has a brain stimulator and he remains on Sinemet. Rest of the medications remain unchanged. He was extubated on 09/08/2024. On 09/10/2024, the patient is being seen for a follow-up. The patient is still very much lethargic, weak, has a weak cough and has a poor ability to swallow. He is arousable, he follows simple commands. He has a very flat affect. Overall respiratory status is stable and the patient remains on oxygen 2 L/min nasal cannula. No interval worsening shortness of breath. Chest x-ray findings shows limited infiltration of the lung base bilaterally. Remains on half-normal saline at rate of 75 cc an hour. Remains on Zosyn and Diflucan. Fluid balance is -1.4 L over the past 24 hours. The white cell count is 15 with a hemoglobin 10.7 and platelet count of 207. BUN 36 with a creatinine of 1.1 and a sodium levels at 144 and a potassium level is at 4.0. I have made recommendations for a PEG tube insertion as I do not see this patient able to swallow in the immediate future. Overall respiratory status is stable. Hemodynamically stable and the patient is on no pressors. The patient remains extubated and currently on 2 L of oxygen by nasal cannula. Patient was extubated on 09/08/2024. On 09/11/2024, the patient is being seen for a follow-up. Neurologically, the level of consciousness is fluctuating. At times, the patient is noted to be more alert than others. The patient's brain stimulator has been activated again. I am still concerned about his ability to meet his caloric requirements. The patient passed a swallow evaluation. However, he does not want to eat at this point. As such, his oral intake remains quite minimal. He remains on half-normal saline at rate of 75 cc an hour. The white cell count of 13 with a heme of 10.9 and a platelet count of 193. Sodium is at 144 with a potassium level of 450 with a bicarb of 25 with a BUN of 25 and a creatinine of 0.95. Remains on DuoNeb nebulized treatments [id number]. Remains on Sinemet. Remains on IV Zosyn. NovoLog sliding scale coverage. Remains on Diflucan. Remains on Lipitor 20 mg p.o. daily [place]eman 25 mg p.o. daily. Afebrile for now. No focal neurological deficit. Profound weakness in all 4 extremities. Objective - Vital Signs Vital signs: Vital Signs Temp 98.6 F 09/11/24 04:00 Pulse 74 09/11/24 08:36 Resp 18 09/11/24 07:00 BP 145/72 09/11/24 07:00 Pulse Ox 96 09/11/24 07:00 FiO2 40 09/08/24 08:18 Intake & Output 09/10/24 09/11/24 09/11/24 18:59 06:59 18:59 Intake Total 1056 394 26 Output Total 1020 1525 275 Balance 36 -1131 -249 Weight 95.3 kg 91.5 kg Intake: IV 156 169 26 0.9 kvo 120 130 20 Pressure Bag 36 39 6 Intake, IV Titration 900 225 Amount Dextrose 5%-0.45% NaCl 1, 900 225 000 ml @ 75 mls/hr IV . [id number] [facility] Rx#:[id number] Output: Urine 1020 1525 275 Other: Voiding Method Indwelling Catheter Indwelling Catheter Indwelling Catheter ABP, PAP, CO, CI - Last Documented Arterial Blood Pressure 129/51 - Exam No acute distress, lethargic, weak, rigid, consistent with Parkinson disease and the patient is not showing any signs of an acute respiratory distress. He has a weak cough currently on 2 L of O2 nasal cannula. HEENT examination is grossly unremarkable. Neck supple. Full range of motion. No adenopathy thyromegaly or neck vein distention. Cardiovascular examination reveals regular rhythm rate. S1-S2 normal. No S3 or S4. No discernible murmur noted. Lungs reveal mostly clear breath sounds. Scattered rhonchi are noted. No wheezes or crackles. Breath sounds are equal. Abdomen soft with bowel sounds. No masses or tenderness. Extremities are intact. No cyanosis clubbing or edema. Skin is without rash or lesion. Neurologic rigid and weak and the patient has generalized motor weakness in all 4 extremities. Able to communicate. Exam is consistent with advanced Parkinson disease with cogwheel rigidity. The patient also has a very flat affect. - Labs CBC & Chem 7: 09/11/24 07:45 09/11/24 07:01 Labs: Abnormal Lab Results - Last 24 Hours (Table) 09/11/24 09/11/24 Range/Units 07:01 07:45 WBC 13.0 H (3.8-10.6) k/uL RBC 3.68 L (4.30-5.90) m/uL Hgb 10.9 L (13.0-17.5) gm/dL Hct 32.5 L (39.0-53.0) % Neutrophils # (Manual) 10.79 H (1.3-7.7) k/uL Chloride 115 H (98-107) mmol/L BUN 25 H (9-20) mg/dL Calcium 7.9 L (8.4-10.2) mg/dL Assessment and Plan Plan: Acute hypoxemic and hypercapnic respiratory failure, secondary to bilateral lower lobe pneumonia likely of a aspiration, requiring intubation and mechanical ventilation as of 09/01/2024. The patient was extubated on 09/08/2024 and the patient is currently on 2 L of O2 nasal cannula. Some limited atelectatic change in infiltrates are seen in the lung base and the patient remains on IV Zosyn. Overall respiratory status is stable. Nevertheless, due to his advanced Parkinson's disease and chronic debility, the patient has a very poor cough and poor ability to do pulmonary toileting. The patient remains profoundly weak. Currently on 2 L of oxygen by nasal cannula Diminished level of consciousness, rule out metabolic/septic. Currently being evaluated by neurology. CT scan negative. Neurologically, improved, the patient is following simple commands. Overall neuroexam is consistent with Parkinson's disease. The patient continues to be profoundly weak and rigid. Neurologically, the patient is has advanced signs of parkinsonism and dementia . The patient continues to have a flat affect. The brain stimulator has been activated. Neurology is on the case. The patient remains on Sinemet. Profound motor weakness in all 4 extremities. Possible partial small bowel obstruction, on CT scan with a small right inguinal hernia, recovered, the patient passed a swallow evaluation Acute leukocytosis, improving Acute kidney injury, recovered Right-sided hydronephrosis, urology on the case and no intervention has been recommended. This is to be followed as the patient's renal function continues to improve. History of hypertension. History of hyperlipidemia. History of Parkinson's disease Hyperchloremic hypernatremia Plan: Aggressive pulmonary toileting Incentive spirometer Swallow evaluation has been done and the patient passed a swallow evaluation. Nevertheless, his oral intake remains extremely diminished and the patient is not meeting his caloric requirements. Continue antibiotics and the patient remains on IV Zosyn continue Diflucan May consider PEG tube insertion if the patient is unable to meet his caloric requirements and swallow properly. This was discussed with the family and the family is not in favor for a PEG tube insertion for now. Will continue monitoring his mentation. Will try to advance oral diet as tolerated. stool for C diff is negative, diarrhea is subsiding Long-term prognosis remains poor. Critical care evaluation, more than 30 minutes. Time with Patient: Greater than 30
[2024-09-11 16:47] LABS: Glucose,Whole Blood 92 mg/dL (70-110)
[2024-09-11] MEDS: SODIUM CHLORIDE 0.45% 1,000 ML IV SCH (18:59)
[2024-09-11 21:05] LABS: Glucose,Whole Blood 93 mg/dL (70-110)
[2024-09-12 06:14] LABS: Glucose,Whole Blood 112 mg/dL (70-110)
--- NOTE | 2024-09-12 08:23 | P.PN ---
Subjective Progress Note Date: 09/11/24 Patient evaluated today in the intensive care unit remains on the mechanical ventilator. Repeat chest x-ray today shows persistent multifocal acute infiltrate. Patient remains on a course of IV Zosyn with concern for aspiration pneumonia. Patient has been off sedation for over 48 hours now without im provement in his mentation neurology was consulted for the same. EEG has been ordered. Additionally neurology had recommended infectious disease consultation secondary to the elevated white blood cell count currently today to 17.8. His renal function has improved. He continues on IV hydrocortisone. 09/06/2024 Patient evaluated in follow-up in the intensive care unit. Chest x-ray shows persistent bilateral multifocal infiltrates. White blood cell count today 23.3, potassium 3.3, BUN of 65, creatinine 1.14. Patient is currently being weaned off the IV solucortef. He has had multiple episodes of loose stools and C. difficile will be checked. He remains off sedation is slightly more responsive today currently with no plans for lumbar puncture but will be going for an EEG tomorrow. 09/07/2024 Patient is seen in follow-up today continues to be in the ICU with neurology following scheduled for EEG. Patient is currently sitting up remains on mechanical ventilation off sedation and is following some commands for me on exam. Awaiting further neurological examination. FiO2 is currently 40% with a PEEP of 5. Nephrology following as well as kidney functions are improving with a creatinine of 1.09, potassium is 3.5 and sodium slightly elevated at 146. Continue with tube feeds and free water flushes and will follow-up with repeat labs. Overall prognosis is guarded at this time. Continue with antibiotics as well. Infectious diseases following. 09/08/2024 Patient seen in follow-up this morning and recently just extubated approximately 30 minutes prior to exam. Patient is continued on 5 L via nasal cannula and will wean as tolerated. Patient currently n.p.o. and tube feeds are on hold and awaiting follow-up speech eval to assess swallow. Patient continues to have copious amounts of diarrhea and C. difficile testing was negative. Will add anti-diarrheal agents and monitor for improvements. Consider Questran once diet is slightly more advanced. Patient with extensive weakness will need PT/OT therapy evaluation. Continue IV antibiotics with infectious disease following. White count remains elevated and patient is afebrile. 09/09/2024 Patient is seen in follow-up today maintained on 4 to 5 L via nasal cannula maintaining oxygen saturations. Diet has been advanced and recommend to continue with aspiration precautions. Patient is continued on antibiotics with infectious disease following. White count minimally trending down and patient is afebrile. Patient with significant weakness needs PT/OT therapy and will need ECF on discharge. Patient continues with a fecal management system having multiple episodes of loose stool and C. difficile testing was negative. Imodium added as needed. 09/10/2024 Patient continues in the ICU on 4 L via nasal cannula. Patient is tolerating diet thus far although strongly recommend aspiration precautions. Patient is significantly weak including swallow and upper and lower extremities. Patient is working with physical therapy and will need extensive therapy on discharge. Patient to be evaluated by PT/OT with social work following working on possible discharge planning to ECF. Patient continues to have significant diarrhea maintained on fecal management system and C. difficile testing has been negative. Patient will continue on antibiotics and will discuss further with infectious disease regarding initiating Questran. 09/11/2024 Patient is seen in follow-up in the ICU awaiting a 3 S. overflow bed currently maintained on 4 L. Patient is scheduled to undergo reevaluation with speech and modified barium as patient has no appetite, not eating very well and extremely weak not tolerating much intake. Neurology following as well and brain stimulator being turned on per family. Patient continues on antibiotics with infectious disease following and is maintained on Questran and fecal management system has been removed. Per patient he continues to have abdominal discomfort and loose stools but is improving. Patient is extremely lethargic although does answer and follow simple commands on exam. Unable to tolerate much commands with upper and lower extremities as they are significantly weak. Recommend PT/OT therapy daily. Overall prognosis is guarded at this time. Review of systems: Constitutional: reports of fatigue, no fever, or chills Cardiovascular: No reports of chest pain or palpitations Respiratory: No reports of worsening shortness of breath, weak cough GI: No reports of nausea, no vomiting, or diarrhea, reports to not really wanting to eat and no appetite : No reports of dysuria or retention, has indwelling [place] catheter Neurovascular: reports of continued weakness All medications have been reviewed Physical exam: GENERAL: This is a 63-year-old male who is lethargic although arousable recently extubated 09/08/2024, currently on 2-4 L via nasal cannula and off sedation, sitting up following some commands, elderly appearing, well-developed, obese HEENT: Pupils are round and equally reacting to light. EOMI. No scleral icterus. No conjunctival pallor. Normocephalic, atraumatic. No pharyngeal erythema. No thyromegaly. CARDIOVASCULAR: S1 and S2 muffled PULMONARY: Diminished breath sounds bilaterally with some coarse rhonchi and faint crackles noted ABDOMEN: Soft, obese, nontender, nondistended, normoactive bowel sounds. No palpable organomegaly. MUSCULOSKELETAL: No joint swelling or deformity. EXTREMITIES: No cyanosis, clubbing, edematous and extremely weak, bilateral upper and lower extremities 2+ pitting edema NEUROLOGICAL: Gross neurological examination did not reveal any focal deficits. Diffusely weak SKIN: No rashes. no petechiae. Pale Assessment: Acute hypoxic respiratory failure secondary to bilateral lower lobe pneumonia, likely aspiration requiring intubation and mechanical ventilation, status post successful extubation 09/08/2024, currently maintained on 2 L via nasal cannula Sepsis with septic shock secondary to above, resolved Altered mental status, multifactorial, likely secondary to metabolic encephalopathy with concerns of septic encephalopathy from aspiration pneumonia per neurology partial small bowel obstruction and right inguinal hernia with loops of small bowel, improved, having multiple bowel movements, improved and started on diet Acute kidney injury, acute tubular necrosis secondary to sepsis and hypotension, improving History of solitary left kidney with marked hydronephrosis of the right, evaluated by urology and appears chronic Leukocytosis could be steroid induced vs infection. Trending down History of Parkinson disease History of dementia Deep tissue injury of the coccyx area, present on admission Stage III pressure ulcers on left and right buttock, hospital-acquired Severe protein calorie malnutrition History of brain stimulator, being turned back on per neurology 09/10/2024 Obesity with a BMI of 30.1 GI prophylaxis DVT prophylaxis Full code Plan: Continue in the ICU with multiple consultations following. Patient is a downgrade to 3 S. once a bed is available Patient waxing waning on mentation and alertness although does respond to questions and commands appropriately, unable to perform much as patient has significant upper and lower extremity swelling along with weakness. Patient is scheduled to undergo speech evaluation and modified barium swallow as patient is not eating. Not much of an appetite and is not meeting caloric needs. General surgery following and discussing possible PEG tube although family does not want this. Patient is still full code and this needs to be discussed in detail Patient was continued on mechanical ventilation and successfully extubated , currently maintained on 2 L via nasal cannula. Will encourage incentive spirometer use and wean FiO2 as tolerated. Patient is having difficulties as he has extreme upper and lower extremity weakness and unable to hold the spirometer Neurology following and EEG was abnormal with encephalopathy with no epileptiform discharges noted, brain stimulator being turned back on by family per neurology ID following and continued on zosyn Urology team consulted for his right hydronephrosis following along. No plans for surgical intervention at this time and most likely chronic. Highly recommend continued aspiration precautions and head of the bed elevated 30 to 45 degrees at all times and supervision with meals. Repeat labs in the AM Overall prognosis guarded at this time Will discuss further with case management/social work regarding discharge planning and will need evaluation by PT/OT therapy Again, patient remains full code and this needs to be discussed in detail with family as overall prognosis is extremely poor and guarded at this time The impression and plan of care has been dictated by Maye Johnson, Nurse Practitioner as directed. Dr. Frank MD I have performed a history and physical examination and medical decision making of this patient, discussed the same with the dictator, and agree with the dictators assessment and plan as written, documented as a scribe. Based on total visit time, I have performed more than 50% of this visit. Objective - Vital Signs Vital signs: Vital Signs Temp 98.6 F 09/11/24 04:00 Pulse 74 09/11/24 08:36 Resp 18 09/11/24 07:00 BP 145/72 09/11/24 07:00 Pulse Ox 96 09/11/24 07:00 FiO2 40 09/08/24 08:18 Intake & Output 09/10/24 09/11/24 09/11/24 18:59 06:59 18:59 Intake Total 1056 394 26 Output Total 1020 1525 275 Balance 36 1131 -532 Weight 95.3 kg 91.5 kg Intake: IV 156 169 26 0.9 kvo 120 130 20 Pressure Bag 36 39 6 Intake, IV Titration 900 225 Amount Dextrose 5%-0.45% NaCl 1, 900 225 000 ml @ 75 mls/hr IV . [id number] [facility] Rx#:[id number] Output: Urine 1020 1525 275 Other: Voiding Method Indwelling Catheter Indwelling Catheter Indwelling Catheter ABP, PAP, CO, CI - Last Documented Arterial Blood Pressure 129/51 - Labs CBC & Chem 7: 09/11/24 07:45 09/11/24 07:01 Labs: Abnormal Lab Results - Last 24 Hours (Table) 09/11/24 09/11/24 Range/Units 07:01 07:45 WBC 13.0 H (3.8-10.6) k/uL RBC 3.68 L (4.30-5.90) m/uL Hgb 10.9 L (13.0-17.5) gm/dL Hct 32.5 L (39.0-53.0) % Neutrophils # (Manual) 10.79 H (1.3-7.7) k/uL Chloride 115 H (98-107) mmol/L BUN 25 H (9-20) mg/dL Calcium 7.9 L (8.4-10.2) mg/dL
[2024-09-12] MEDS ORDERED: predniSONE 20 MG TAB PO SCH (09:45)
--- NOTE | 2024-09-12 11:26 | P.PN ---
Subjective Patient is seen for follow-up for acute kidney injury. Serum sodium remains at 144 yesterday. Urine output at 100-1 25 cc/h. Serum creatinine decreased to 0.9 today. Transferred out of ICU. Objective - Vital Signs Vital signs: Vital Signs Temp 97.8 F 09/12/24 08:51 Pulse 93 09/12/24 08:51 Resp 16 09/12/24 08:51 BP 137/73 09/12/24 08:51 Pulse Ox 94 L 09/12/24 08:51 FiO2 40 09/08/24 08:18 Intake & Output 09/11/24 09/12/24 09/12/24 18:59 06:59 18:59 Intake Total 70 Output Total 900 800 Balance -830 -800 Weight 91.5 kg 91.5 kg Intake: IV 70 0.9 kvo 70 Output: Urine 900 800 Uretheral ([place]) 100 Other: Voiding Method Indwelling Catheter Indwelling Catheter Indwelling Catheter ABP, PAP, CO, CI - Last Documented Arterial Blood Pressure 129/51 - Exam Patient has been extubated. He does not communicate much. He had been awake and answering questions earlier. Examination of the heart S1 and S2 Examination of the lungs bilateral breath sounds are heard Abdomen is soft nontender Examination of lower extremities shows 1+ edema and scrotal edema, scrotal edema noted - Labs CBC & Chem 7: 09/11/24 07:45 09/11/24 07:01 Labs: Abnormal Lab Results - Last 24 Hours (Table) 09/12/24 Range/Units 06:11 POC Glucose (mg/dL) 112 H (70-110) mg/dL Assessment and Plan Assessment: 1. Acute kidney injury ATN currently nonoliguric secondary to sepsis and hypotension, improving. Solitary functioning kidney which is the left kidney. Patient has chronic hydronephrosis of right kidney with possibly minimal function. 2. Right hydronephrosis noted. This appears to be chronic. Urology on consult. No plans for intervention. 3. Acute hypoxic respiratory failure currently on on the ventilator. Status post extubation 4. Aspiration pneumonia 5. History of Parkinson's disease 6. Metabolic acidosis secondary to acute kidney injury 7. Hypokalemia status post replacement 8. Hypernatremia associated with free water deficit Plan: Continue D5W at 50 cc an hour Check labs today Encourage increased oral free water intake which needs to be thickened. Repeat labs in a.m.
[2024-09-12 11:41] LABS: Glucose,Whole Blood 98 mg/dL (70-110)
[2024-09-12 12:29] LABS: Basophils % (A) 0 %; Eosinophils # (A) 0.1 k/uL (0-0.7); Eosinophils % (A) 1 %; HGB 9.9 gm/dL (13.0-17.5); Lymphocytes # (A) 1.2 k/uL (1.0-4.8); Lymphocytes % (A) 11 %; MCH 29.1 pg (25.0-35.0); MCV 88.4 fL (80.0-100.0); Mean Platelet Volume 7.8; Monocytes # (A) 0.5 k/uL (0-1.0); Monocytes % (A) 5 %; Neutrophils # (A) 9.3 k/uL (1.3-7.7); Neutrophils % (A) 82 %; Platelet Count 229 k/uL (150-450); RBC 3.39 m/uL (4.30-5.90); WBC 11.2 k/uL (3.8-10.6)
--- NOTE | 2024-09-12 12:34 | P.PN ---
Subjective Progress Note Date: 09/12/24 On 09/07/2024, the patient is being seen for a follow-up. I the patient is known to have Parkinson's disease, quite extensive and the patient has a brain stimulator in place in addition to history of hypertension hyperlipidemia who presented to the emergency department with few days of nausea and emesis and shortness of breath. The patient was also having increased lethargy. In the emergency, the patient was in significant distress and the patient was placed on a BiPAP and a CAT scan of the abdomen and pelvis was obtained that showed bibasilar airspace disease consolidation with air bronchograms and small bilateral pleural effusion. There was also a right inguinal hernia containing loop of small bowel and possible partial small bowel obstruction. Normal caliber colon and mild fecal retention. Was also mild right-sided hydronephrosis and questionable obstruction at the level of the ureteropelvic junction. NG tube was inserted and there was a total of 1 L of fecal like material content evacuated. Subsequently, the patient went respiratory failure, while in the emergency, the patient was intubated and placed on a mechanical ventilator on 09/01/2024. For now, the patient remains intubated on the mechanical ventilator. This morning, the patient remains on assist-control mode rate of 24, tidal volume of 500, FiO2 40% with a PEEP of 5. Blood gases are still pending from this morning. The chest x-ray from today is showing a nerve stimulator over the left anterior chest area and some limited hazy bilateral pulmonary infiltrates especially on the right. The sputum sample collected on 09/01/2024 was consistent with Richelle and the patient remains on IV Zosyn. The patient has been off sedation for several days and unfortunately, the neurologic response has been suboptimal as the patient remains encephalopathic. CAT scan of the brain was done on 09/04/2024 that showed no acute abnormalities and the patient was seen by neurology. A lumbar puncture has not been done. The abdirashid haji remains on vital high-protein at rate of 75 cc an hour for nutritional support. IV fluids KVO. General surgical services on the case for the partial small bowel obstruction with right inguinal hernia and recommendations were conservative management for partial small bowel obstruction He is off propofol for 72 hours. EEG is to be done this morning. On 09/08/2024, the patient is being seen for a follow-up. Much more awake compared to yesterday. Following simple commands. Has an adequate cough. Noted the patient has been off sedation for the past 96 hours. This morning, the patient is on assist-control mode of mechanical ventilation at rate of 16, tidal volume of 500, FiO2 of 40% with a PEEP of 5. Blood gas showed a pH of 7.45 with a pCO2 of 43 and pO2 of 93. Hemodynamically stable. Cardiac rhythm is sinus. The patient continues to receive vital high-protein for enteral fe eding and nutritional support. The patient is having diarrhea and has a fecal management system in place. Otherwise, no other significant events overnight. Blood work from today shows a white cell count of 16 with a hemoglobin 10.5 and platelet count of 162. Sodium is at 144, BUN 66 with a creatinine of 1.1. Chest x-ray was reviewed and it shows adequate positioning of the orotracheal tube. The patient continues to have some bibasilar atelectatic changes and small effusion in the left lung base, overall, unchanged compared to yesterday's chest x-ray. EEG was consistent with moderate degree of encephalopathy and no seizure activity. On 09/09/2024, the patient is extubated and is currently on 5 L of oxygen nasal cannula. Weak cough. No signs of any respiratory distress. Chest x-ray showing patchy bibasilar pulm infiltrates/atelectasis. Neurologically, arousable, sluggish in his response, extremely weak, rigid, has some tremors and overall evaluation is consistent with his history of Parkinson's disease. Seems to be in a low mood state. He does communicate however is very sluggish and slow in his responses. The patient was given a dose of Lasix yesterday. Fluid balance is -3 L over the past 24 hours. Electrolytes from today showed a sodium level of 147, potassium of 4.3, bicarb of 31 with a BUN of 15 and creatinine 1.1. WBC count at 18.3 with a hemoglobin of 11.7. The patient remains on IV Zosyn and the patient is also on Diflucan. He has a brain stimulator and he remains on Sinemet. Rest of the medications remain unchanged. He was extubated on 09/08/2024. On 09/10/2024, the patient is being seen for a follow-up. The patient is still very much lethargic, weak, has a weak cough and has a poor ability to swallow. He is arousable, he follows simple commands. He has a very flat affect. Overall respiratory status is stable and the patient remains on oxygen 2 L/min nasal cannula. No interval worsening shortness of breath. Chest x-ray findings shows limited infiltration of the lung base bilaterally. Remains on half-normal saline at rate of 75 cc an hour. Remains on Zosyn and Diflucan. Fluid balance is -1.4 L over the past 24 hours. The white cell count is 15 with a hemoglobin 10.7 and platelet count of 207. BUN 36 with a creatinine of 1.1 and a sodium levels at 144 and a potassium level is at 4.0. I have made recommendations for a PEG tube insertion as I do not see this patient able to swallow in the immediate future. Overall respiratory status is stable. Hemodynamically stable and the patient is on no pressors. The patient remains extubated and currently on 2 L of oxygen by nasal cannula. Patient was extubated on 09/08/2024. On 09/11/2024, the patient is being seen for a follow-up. Neurologically, the level of consciousness is fluctuating. At times, the patient is noted to be more alert than others. The patient's brain stimulator has been activated again. I am still concerned about his ability to meet his caloric requirements. The patient passed a swallow evaluation. However, he does not want to eat at this point. As such, his oral intake remains quite minimal. He remains on half-normal saline at rate of 75 cc an hour. The white cell count of 13 with a heme of 10.9 and a platelet count of 193. Sodium is at 144 with a potassium level of 450 with a bicarb of 25 with a BUN of 25 and a creatinine of 0.95. Remains on DuoNeb nebulized treatments [id number]. Remains on Sinemet. Remains on IV Zosyn. NovoLog sliding scale coverage. Remains on Diflucan. Remains on Lipitor 20 mg p.o. daily [place] 25 mg p.o. daily. Afebrile for now. No focal neurological deficit. Profound weakness in all 4 extremities. 09/12/2024, the patient is being seen for a follow-up. The patient was moved out of the intensive care unit yesterday. The patient seems to be a slightly more alert and communicating. He is currently on room air oxygen. Oral intake remains poor. Remains on IV Zosyn. White cell count 11 with a hemoglobin 9.9 and a platelet count of 229. No other significant events overnight. Extensive ly debilitated due to his chronic parkinsonism and dementia. Objective - Vital Signs Vital signs: Vital Signs Temp 97.8 F 09/12/24 08:51 Pulse 93 09/12/24 08:51 Resp 16 09/12/24 08:51 BP 137/73 09/12/24 08:51 Pulse Ox 94 L 09/12/24 08:51 FiO2 40 09/08/24 08:18 Intake & Output 09/11/24 09/12/24 09/12/24 18:59 06:59 18:59 Intake Total 70 Output Total 900 800 Balance -830 -800 Weight 91.5 kg 91.5 kg Intake: IV 70 0.9 kvo 70 Output: Urine 900 800 Uretheral ([place]) 100 Other: Voiding Method Indwelling Catheter Indwelling Catheter ABP, PAP, CO, CI - Last Documented Arterial Blood Pressure 129/51 - Exam No acute distress, lethargic, weak, rigid, consistent with Parkinson disease and the patient is not showing any signs of an acute respiratory distress. He has a weak cough currently on room air oxygen HEENT examination is grossly unremarkable. Neck supple. Full range of motion. No adenopathy thyromegaly or neck vein distention. Cardiovascular examination reveals regular rhythm rate. S1-S2 normal. No S3 or S4. No discernible murmur noted. Lungs reveal mostly clear breath sounds. Scattered rhonchi are noted. No wheezes or crackles. Breath sounds are equal. Abdomen soft with bowel sounds. No masses or tenderness. Extremities are intact. No cyanosis clubbing or edema. Skin is without rash or lesion. Neurologic rigid and weak and the patient has generalized motor weakness in all 4 extremities. Able to communicate. Exam is consistent with advanced Parkinson disease with cogwheel rigidity. The patient also has a very flat affect. - Labs CBC & Chem 7: 09/12/24 12:18 09/11/24 07:01 Labs: Abnormal Lab Results - Last 24 Hours (Table) 09/12/24 Range/Units 06:11 POC Glucose (mg/dL) 112 H (70-110) mg/dL Assessment and Plan Plan: Acute hypoxemic and hypercapnic respiratory failure, secondary to bilateral lower lobe pneumonia likely of a aspiration, requiring intubation and mechanical ventilation as of 09/01/2024. The patient was extubated on 09/08/2024 and the patient is currently on 2 L of O2 nasal cannula. Some limited atelectatic change in infiltrates are seen in the lung base and the patient remains on IV Zosyn. Overall respiratory status is stable. Nevertheless, due to his advanced Parkinson's disease and chronic debility, the patient has a very poor cough and poor ability to do pulmonary toileting. The patient remains profoundly weak. Currently on room air oxygen Diminished level of consciousness, rule out metabolic/septic. Currently being evaluated by neurology. CT scan negative. Neurologically, improved, the patient is following simple commands. Overall neuroexam is consistent with Parkinson's disease. The patient continues to be profoundly weak and rigid. Neurologically, the patient is has advanced signs of parkinsonism and dementia . The patient continues to have a flat affect. The brain stimulator has been activated. Neurology is on the case. The patient remains on Sinemet. Profound motor weakness in all 4 extremities. Slightly more alert on today's evaluation Possible partial small bowel obstruction, on CT scan with a small right inguinal hernia, recovered, the patient passed a swallow evaluation Acute leukocytosis, improving Acute kidney injury, recovered Right-sided hydronephrosis, urology on the case and no intervention has been recommended. This is to be followed as the patient's renal function continues to improve. History of hypertension. History of hyperlipidemia. History of Parkinson's disease Hyperchloremic hypernatremia Plan: Aggressive pulmonary toileting Incentive spirometer Currently on room air oxygen Swallow evaluation has been done and the patient passed a swallow evaluation. Nevertheless, his oral intake remains extremely diminished and the patient is not meeting his caloric requirements. Oral intake remains poor Continue antibiotics and the patient remains on IV Zosyn continue Diflucan stool for C diff is negative, diarrhea is subsiding Long-term prognosis remains poor.
[2024-09-12 12:44] LABS: African American GFR (CKD) >90 (>60 ml/min/1.73 sqM); Anion Gap 2 mmol/L; Blood Urea Nitrogen 19 mg/dL (9-20); Calcium 7.7 mg/dL (8.4-10.2); Carbon Dioxide 25 mmol/L (22-30); Chloride 113 mmol/L (98-107); Glucose 93 mg/dL (74-99); Non-African American GFR(CKD) 89 (>60 ml/min/1.73 sqM); Potassium 3.7 mmol/L (3.5-5.1); Sodium 140 mmol/L (137-145)
--- NOTE | 2024-09-12 13:24 | P.PN ---
Subjective Progress Note Date: 09/11/24 Principal diagnosis: Reason for follow-up is leukocytosis/aspiration pneumonia Patient is a 63-year-old male with a past medical history significant for hypertension presenting to the hospital for evaluation of nausea vomiting and increased work of breathing, CT of abdominal pelvis did shows evidence of bibasilar consolidation with air bronchogram and the patient had fever concerning for aspiration pneumonia, he did have elevated white count prompted this consultation. On today's evaluation that is 09/11/2024, the patient continues to be afebrile, the patient is on room air and breathing comfortably, the Pt is more awake and alert denies having any chest pain or any worsening cough, the patient complaining of some lower abdominal pain no vomiting or any diarrhea has been reported by the nursing staff. Patient white count is down to 13,000 creatinine 0.95 Objective - Vital Signs Vital signs: Vital Signs Temp 97.6 F 09/11/24 20:00 Pulse 80 09/11/24 21:33 Resp 18 09/11/24 20:00 BP 125/67 09/11/24 20:00 Pulse Ox 95 09/11/24 20:00 FiO2 40 09/08/24 08:18 Intake & Output 09/11/24 09/11/24 09/12/24 06:59 18:59 06:59 Intake Total 394 70 Output Total 1525 900 Balance -1131 -830 Weight 91.5 kg 91.5 kg Intake: IV 169 70 0.9 kvo 130 70 Pressure Bag 39 Intake, IV Titration 225 Amount Dextrose 5%-0.45% NaCl 1, 225 000 ml @ 75 mls/hr IV . [id number] [facility] Rx#:[id number] Output: Urine 1525 900 Other: Voiding Method Indwelling Catheter Indwelling Catheter Indwelling Catheter ABP, PAP, CO, CI - Last Documented Arterial Blood Pressure 129/51 - Exam GENERAL DESCRIPTION: An elderly male lying in bed no distress RESPIRATORY SYSTEM: Unlabored breathing , decreased breath sounds at bases HEART: S1 S2 regular rate and rhythm , ABDOMEN: Soft , no tenderness EXTREMITIES: No edema feet - Labs CBC & Chem 7: 09/12/24 12:18 09/12/24 12:18 Labs: Abnormal Lab Results - Last 24 Hours (Table) 09/11/24 09/11/24 Range/Units 07:01 07:45 WBC 13.0 H (3.8-10.6) k/uL RBC 3.68 L (4.30-5.90) m/uL Hgb 10.9 L (13.0-17.5) gm/dL Hct 32.5 L (39.0-53.0) % Neutrophils # (Manual) 10.79 H (1.3-7.7) k/uL Chloride 115 H (98-107) mmol/L BUN 25 H (9-20) mg/dL Calcium 7.9 L (8.4-10.2) mg/dL Assessment and Plan (1) Leukocytosis Current Visit: Yes Status: Acute Code(s): D72.829 - ELEVATED WHITE BLOOD CELL COUNT, UNSPECIFIED SNOMED Code(s): 369399369 (2) Aspiration pneumonia Current Visit: Yes Status: Acute Code(s): J69.0 - PNEUMONITIS DUE TO INHALATION OF FOOD AND VOMIT SNOMED Code(s): 126828155 Plan: 1patient with initial presentation to hospital with nausea and vomiting patient also have a fever on admission that has resolved as of 09/01/[address] abdominal pelvis did not show any obstruction but evidence of bibasilar consolidation concerning for possible aspiration pneumonia sputum has been candidal because patient did have elevated white count could be related to his pneumonia possible aspiration etiology versus steroids that has been discontinued however did have worsening of his white count question of oropharyngeal candidiasis as the patient did have positive sputum with Richelle 2-patient stool for C. difficile negative patient will be treated with Questran as needed for symptomatic relief of his diarrhea 3- patient is afebrile and the patient white count is trending down to 13,000, patient will be continued on Zosyn and Diflucan and continue supportive care Dictation was produced using [employer] dictation software. please excuse any grammatical, word or spelling errors. Time with Patient: Less than 30
--- NOTE | 2024-09-12 13:25 | P.PN ---
Subjective Progress Note Date: 09/12/24 Principal diagnosis: Reason for follow-up is leukocytosis/aspiration pneumonia Patient is a 63-year-old male with a past medical history significant for hypertension presenting to the hospital for evaluation of nausea vomiting and increased work of breathing, CT of abdominal pelvis did shows evidence of bibasilar consolidation with air bronchogram and the patient had fever concerning for aspiration pneumonia, he did have elevated white count prompted this consultation. On today's evaluation that is 09/12/2024, patient did not have any fever and denies any chills, patient is breathing comfortably on room air, patient with no chest pain or cough patient abdominal pain is improved, nausea vomiting or any loose stools reported. Patient white count is down to 11.2, creatinine 0.90 Objective - Vital Signs Vital signs: Vital Signs Temp 97.8 F 09/12/24 08:51 Pulse 78 09/12/24 12:22 Resp 16 09/12/24 11:43 BP 111/58 09/12/24 11:43 Pulse Ox 98 09/12/24 11:43 FiO2 40 09/08/24 08:18 Intake & Output 09/11/24 09/12/24 09/12/24 18:59 06:59 18:59 Intake Total 70 Output Total 900 800 Balance -830 -800 Weight 91.5 kg 91.5 kg Intake: IV 70 0.9 kvo 70 Output: Urine 900 800 Uretheral ([place]) 100 Other: Voiding Method Indwelling Catheter Indwelling Catheter Indwelling Catheter ABP, PAP, CO, CI - Last Documented Arterial Blood Pressure 129/51 - Exam GENERAL DESCRIPTION: An elderly male lying in bed no distress RESPIRATORY SYSTEM: Unlabored breathing , decreased breath sounds at bases HEART: S1 S2 regular rate and rhythm , ABDOMEN: Soft , no tenderness EXTREMITIES: No edema feet - Labs CBC & Chem 7: 09/12/24 12:18 09/12/24 12:18 Labs: Abnormal Lab Results - Last 24 Hours (Table) 09/12/24 09/12/24 09/12/24 Range/Units 06:11 12:18 12:18 WBC 11.2 H (3.8-10.6) k/uL RBC 3.39 L (4.30-5.90) m/uL Hgb 9.9 L (13.0-17.5) gm/dL Hct 30.0 L (39.0-53.0) % Neutrophils # 9.3 H (1.3-7.7) k/uL Chloride 113 H (98-107) mmol/L POC Glucose (mg/dL) 112 H (70-110) mg/dL Calcium 7.7 L (8.4-10.2) mg/dL Assessment and Plan (1) Leukocytosis Current Visit: Yes Status: Acute Code(s): D72.829 - ELEVATED WHITE BLOOD CELL COUNT, UNSPECIFIED SNOMED Code(s): 185634479 (2) Aspiration pneumonia Current Visit: Yes Status: Acute Code(s): J69.0 - PNEUMONITIS DUE TO INHALATION OF FOOD AND VOMIT SNOMED Code(s): 272959996 Plan: 1patient with initial presentation to hospital with nausea and vomiting patient also have a fever on admission that has resolved as of 09/01/[address] abdominal pelvis did not show any obstruction but evidence of bibasilar consolidation concerning for possible aspiration pneumonia sputum has been candidal because patient did have elevated white count could be related to his pneumonia possible aspiration etiology versus steroids that has been discontinued however did have worsening of his white count question of oropharyngeal candidiasis as the patient did have positive sputum with Richelle 2-patient stool for C. difficile negative patient will be treated with Questran as needed for symptomatic relief of his diarrhea 3- patient is afebrile and the patient white count is trending down to 11,000 4 patient will be treated with Zosyn while inpatient along with Diflucan and transition to oral on discharge Dictation was produced using [employer] dictation software. please excuse any grammatical, word or spelling errors.
--- NOTE | 2024-09-12 15:47 | P.PN ---
Subjective Patient seen and evalauted at bedside. Patient denies abdominal pain, nausea or vomiting. Objective - Vital Signs Vital signs: Vital Signs Temp 97.8 F 09/12/24 08:51 Pulse 80 09/12/24 15:39 Resp 16 09/12/24 11:43 BP 111/58 09/12/24 11:43 Pulse Ox 98 09/12/24 11:43 FiO2 40 09/08/24 08:18 Intake & Output 09/11/24 09/12/24 09/12/24 18:59 06:59 18:59 Intake Total 70 240 Output Total 900 800 Balance -830 -800 240 Weight 91.5 kg 91.5 kg Intake: IV 70 0.9 kvo 70 Oral 240 Output: Urine 900 800 Uretheral ([place]) 100 Other: Voiding Method Indwelling Catheter Indwelling Catheter Indwelling Catheter ABP, PAP, CO, CI - Last Documented Arterial Blood Pressure 129/51 - Exam gen: nad cv: rrr pul: non labored breathing abd: soft, non tender to palpation, no guarding or rebound tenderness, reducing inguinal hernia - Labs CBC & Chem 7: 09/12/24 12:18 09/12/24 12:18 Labs: Abnormal Lab Results - Last 24 Hours (Table) 09/12/24 09/12/24 09/12/24 Range/Units 06:11 12:18 12:18 WBC 11.2 H (3.8-10.6) k/uL RBC 3.39 L (4.30-5.90) m/uL Hgb 9.9 L (13.0-17.5) gm/dL Hct 30.0 L (39.0-53.0) % Neutrophils # 9.3 H (1.3-7.7) k/uL Chloride 113 H (98-107) mmol/L POC Glucose (mg/dL) 112 H (70-110) mg/dL Calcium 7.7 L (8.4-10.2) mg/dL Assessment and Plan Assessment: monitor for toleration of diet monitor for bowel function aspiration risk Time with Patient: Less than 30
--- NOTE | 2024-09-12 16:03 | P.PN ---
Subjective Progress Note Date: 09/11/24 09/11/2024: Patient was seen for a follow-up. Patient is laying in the bed. Nurse mentioned that he ate food. Patient continues to be generalized weak. Patient denies headache. Offers no new complaints. Patient is laying still, spacey at times. He does get attention on alerting. 09/10/2024: Patient was seen for a follow-up. Patient is laying in the bed. Patient states "I am fine". Regarding headache patient states "no headache, not really". Patient keeps his eyes closed. His speech is very clear. Please refer to examination below. Patient's DBS has been turned on. 09/09/2024: Patient was seen for a follow-up. Patient's and family members were present. Apparently patient does have DBS, and it was turned off on Saturday. Patient is currently receiving Sinemet 25/100, 1 tablet 3 times daily. Family reports that when he received Sinemet 2 tablets every 6 hours, he had severe hallucinations, to the point that he required Seroquel. Nurse reports that patient sometimes becomes spacey, does not respond. Family has mentioned that patient usually tremors a lot, but he is not tremoring. Patient does have DBS, but currently turned off since Saturday. His swallowing has worsened. Patient requires nectar thick diet. He pockets pills, not passing urine, having urinary retention. Also at risk of aspiration pneumonia. 09/08/2024: Patient was seen for a follow-up. Patient states he is feeling good, denies headache. Patient was extubated today. 09/07/2024: Patient was initially seen by Dr. Erwin Neal. Please refer to his note for details. Patient is a 63-year-old male with altered mental status and felt aspiration pneumonia. Does not appear meningoencephalitis as per Dr. Delvis garay. I spoke to ICU staff, it appears patient is slightly improved as compared to how his examination was 3 days ago, but still not with it. Patient is intubated on the mechanical ventilator. Patient not on any IV drips. No seizure-like activity. Please refer to examination below. Some of the workup during this hospital visit consisted of: As Stated earlier on initial presentation patient had low-grade fever on the first few days in the hospital stay and the Tmax was 102.1 and he had been afebrile since September 02, 2024. Oxygen during hospital admission was as low as 75% White blood cell is trending down initially it was 11.7 got as high as 26,000 and currently is 17.8. AST is 91 ALT 14 Vitamin B12 is 1236 TSH is 1.50 Ammonia level 17 On initial presentation patient had acute kidney in injury which resolved was 2.8 for now it is 1.10 CT head is reported as no acute intracranial process. Nonspecific white matter changes, likely secondary to chronic small vessel ischemic disease. Postsurgical changes with stimulator leads identified within the bilateral basal ganglia. I personally reviewed the CT and agree with the report. Sputum culture is Richelle albicans Objective - Vital Signs Vital signs: Vital Signs Temp 97.8 F 09/12/24 08:51 Pulse 78 09/12/24 15:49 Resp 16 09/12/24 11:43 BP 111/58 09/12/24 11:43 Pulse Ox 98 09/12/24 11:43 FiO2 40 09/08/24 08:18 Intake & Output 09/11/24 09/12/24 09/12/24 18:59 06:59 18:59 Intake Total 70 240 Output Total 900 800 Balance -830 -800 240 Weight 91.5 kg 91.5 kg Intake: IV 70 0.9 kvo 70 Oral 240 Output: Urine 900 800 Uretheral ([place]) 100 Other: Voiding Method Indwelling Catheter Indwelling Catheter Indwelling Catheter ABP, PAP, CO, CI - Last Documented Arterial Blood Pressure 129/51 - Exam On examination patient is laying in the bed, in no acute distress. Patient speaks, very hypophonic, but is very clear with no aphasia or dysarthria. Limited speech was very appropriate. On cranial examination pupils are equal, round and reacting, extraocular muscles appears intact. No obvious seizure-like activity. Patient's reexaminer is about 4+ bilaterally. He is very weak proximally in the upper limbs. He is wiggling his feet and toes, when asked to move his legs, patient would hyperextend his knees rather than bending the knees. Tone is increased mildly bilaterally. No tremors at rest. Some chin tremor noted. Reflexes are diminished. Patient has had peripheral edema. Abdomen is soft nontender. Chest appears clear to auscultation. No crackles or murmurs. - Labs CBC & Chem 7: 09/12/24 12:18 09/12/24 12:18 Labs: Abnormal Lab Results - Last 24 Hours (Table) 09/12/24 09/12/24 09/12/24 Range/Units 06:11 12:18 12:18 WBC 11.2 H (3.8-10.6) k/uL RBC 3.39 L (4.30-5.90) m/uL Hgb 9.9 L (13.0-17.5) gm/dL Hct 30.0 L (39.0-53.0) % Neutrophils # 9.3 H (1.3-7.7) k/uL Chloride 113 H (98-107) mmol/L POC Glucose (mg/dL) 112 H (70-110) mg/dL Calcium 7.7 L (8.4-10.2) mg/dL Assessment and Plan Assessment: Altered mental status, likely due to metabolic encephalopathy. Improved. Reasons multifactorial as mentioned below. Status post extubation 09/08/2024 Septic encephalopathy from aspiration pneumonia, metabolic encephalopathy. Worsening parkinsonism CT of the head is unremarkable for any acute or subacute process. Acute acute kidney injury--resolved Fever and leukocytosis and it was felt patient likely has aspiration pneumonia and its likely due to his vomiting episode Slight transaminitis Acute hypoxemic and hypercapnic respiratory failure secondary to aspiration pneumonia the patient is intubated on the ventilator History of Parkinson disease status post Deep brain stimulator (DBS) History of hypertension Hyperlipidemia Plan: Patient continues to be lethargic, does answer limited amount, but appropriately. His parkinsonism has improved with less rigidity since increa sing the dose of Sinemet, and resuming his DBS. He just moving his hands and feet but not proximally. No obvious focality. Continue Sinemet to 25/100, 1 tablet 4 times daily. Also turned back the DBS by family members. EEG was performed, which was abnormal due to background slowing of moderate degree, suggestive of generalized cerebral dysfunction as can be seen with toxic metabolic encephalopathy or due to diffuse structural brain abnormality. No focal, lateralized or epileptiform activity was seen. Infection diseases consulted and Dr. Neal discussed with ID and agreed to hold off on pursuing lumbar puncture since does not seem to be meningitis or encephalitis it was felt mostly aspiration pneumonia. C. difficile negative Will defer the rest of the medical management to primary and other specialist PT, OT, speech therapy If continues to be weak, then we will do repeat CT head in the morning.
--- NOTE | 2024-09-12 16:08 | P.PN ---
Subjective Progress Note Date: 09/12/24 09/12/2024: Patient was seen for a follow-up. Patient continues to be essentially unchanged. Still waking up, making eye contact, answering some questions appropriately, not very well-oriented, moving his hands and feet, but not proximally. Patient becomes spacey at times. Nurses reported that family has mentioned that whenever patient receives higher dose of Sinemet, more than 3 times a day, he becomes lethargic. Therefore we will decrease Sinemet down to 1 tablet 3 times daily. I spoke to patient's niece Shobha on the phone in detail. She mentioned that patient was having hallucinations when he was on Sinemet 1 tablet 4 times a day. He would space out, and hallucinate. She states that she saw him last night and he was spacing out and hallucinating. Patient follows up with Dr. Bello, movement disorder specialist who has been trying to wean him off Sinemet. Patient is currently on Sinemet 1 tablet 3 times daily and they were planning to decrease it to 1 tablet twice daily soon. Patient's DBS is working, as it shows that it is turned on, but when they tried to recheck, it says "failed signal". She is going to try to contact the [employer] representative to come over and check out the DBS make sure it is working right. She mentions that patient was tried on Crexont, which were initially but did not later. They went back to Sinemet. 09/11/2024: Patient was seen for a follow-up. Patient is laying in the bed. Nurse mentioned that he ate food. Patient continues to be generalized weak. Patient denies headache. Offers no new complaints. Patient is laying still, spacey at times. He does get attention on alerting. 09/10/2024: Patient was seen for a follow-up. Patient is laying in the bed. Patient states "I am fine". Regarding headache patient states "no headache, not really". Patient keeps his eyes closed. His speech is very clear. Please refer to examination below. Patient's DBS has been turned on. 09/09/2024: Patient was seen for a follow-up. Patient's and family members were present. Apparently patient does have DBS, and it was turned off on Saturday. Patient is currently receiving Sinemet 25/100, 1 tablet 3 times daily. Family reports that when he received Sinemet 2 tablets every 6 hours, he had severe hallucinations, to the point that he required Seroquel. Nurse reports that patient sometimes becomes spacey, does not respond. Family has mentioned that patient usually tremors a lot, but he is not tremoring. Patient does have DBS, but currently turned off since Saturday. His swallowing has worsened. Patient requires nectar thick diet. He pockets pills, not passing urine, having urinary retention. Also at risk of aspiration pneumonia. 09/08/2024: Patient was seen for a follow-up. Patient states he is feeling good, denies headache. Patient was extubated today. 09/07/2024: Patient was initially seen by Dr. Erwin Neal. Please refer to his note for details. Patient is a 63-year-old male with altered mental status and felt aspiration pneumonia. Does not appear meningoencephalitis as per Dr. Fariba oleary. I spoke to ICU staff, it appears patient is slightly improved as compared to how his examination was 3 days ago, but still not with it. Patient is intubated on the mechanical ventilator. Patient not on any IV drips. No seizure-like activity. Please refer to examination below. Some of the workup during this hospital visit consisted of: As Stated earlier on initial presentation patient had low-grade fever on the first few days in the hospital stay and the Tmax was 102.1 and he had been afebrile since September 02, 2024. Oxygen during hospital admission was as low as 75% White blood cell is trending down initially it was 11.7 got as high as 26,000 and currently is 17.8. AST is 91 ALT 14 Vitamin B12 is 1236 TSH is 1.50 Ammonia level 17 Hemoglobin A1c 5.4 On initial presentation patient had acute kidney in injury which resolved was 2.8 for now it is 0.90 CT head is reported as no acute intracranial process. Nonspecific white matter changes, likely secondary to chronic small vessel ischemic disease. Postsurgical changes with stimulator leads identified within the bilateral basal ganglia. I personally reviewed the CT and agree with the report. Sputum culture is Richelle albicans Objective - Vital Signs Vital signs: Vital Signs Temp 97.8 F 09/12/24 08:51 Pulse 78 09/12/24 15:49 Resp 16 09/12/24 11:43 BP 111/58 09/12/24 11:43 Pulse Ox 98 09/12/24 11:43 FiO2 40 09/08/24 08:18 Intake & Output 09/11/24 09/12/24 09/12/24 18:59 06:59 18:59 Intake Total 70 240 Output Total 900 800 Balance -830 -800 240 Weight 91.5 kg 91.5 kg Intake: IV 70 0.9 kvo 70 Oral 240 Output: Urine 900 800 Uretheral ([place]) 100 Other: Voiding Method Indwelling Catheter Indwelling Catheter Indwelling Catheter ABP, PAP, CO, CI - Last Documented Arterial Blood Pressure 129/51 - Exam On examination patient is laying in the bed, in no acute distress. Patient speaks, very hypophonic, but is very clear with no aphasia or dysarthria. Limited speech was very appropriate. It is again in an effort to get anything out of the patient. He sometimes gets spacey and looks into the space, although he can be alerted and attention can be brought back on calling his name. On cranial examination pupils are equal, round and reacting, extraocular muscles appears intact. No obvious seizure-like activity. Patient's recharger is about 4+ bilaterally. He is very weak proximally in the upper limbs. When his arms are lifted up passively, he brings it down right away. He is wiggling his feet and toes, when asked to move his legs, patient would hyperextend his knees rather than bending the knees. Tone is increased mildly bilaterally. No tremors at rest. Some chin tremor noted. Reflexes are diminished. Patient has had peripheral edema. Abdomen is soft nontender. Chest appears clear to auscultation. No crackles or murmurs. - Labs CBC & Chem 7: 09/12/24 12:18 09/12/24 12:18 Labs: Abnormal Lab Results - Last 24 Hours (Table) 09/12/24 09/12/24 09/12/24 Range/Units 06:11 12:18 12:18 WBC 11.2 H (3.8-10.6) k/uL RBC 3.39 L (4.30-5.90) m/uL Hgb 9.9 L (13.0-17.5) gm/dL Hct 30.0 L (39.0-53.0) % Neutrophils # 9.3 H (1.3-7.7) k/uL Chloride 113 H (98-107) mmol/L POC Glucose (mg/dL) 112 H (70-110) mg/dL Calcium 7.7 L (8.4-10.2) mg/dL Assessment and Plan Assessment: Altered mental status, likely due to metabolic encephalopathy. Improved. Reasons multifactorial as mentioned below. Parkinsonism, not improving. Continues to be very weak proximally, uncertain if patient has developed some critical illness myopathy. Status post extubation 09/08/2024 Septic encephalopathy from aspiration pneumonia, metabolic encephalopathy. Worsening parkinsonism CT of the head is unremarkable for any acute or subacute process. Acute acute kidney injury--resolved Fever and leukocytosis and it was felt patient likely has aspiration pneumonia and its likely due to his vomiting episode Slight transaminitis Acute hypoxemic and hypercapnic respiratory failure secondary to aspiration pneumonia the patient is intubated on the ventilator History of Parkinson disease status post Deep brain stimulator (DBS) History of hypertension Hyperlipidemia Plan: Patient continues to be lethargic, does answer limited amount, but appropriately. His parkinsonism has improved with less rigidity since increasing the dose of Sinemet, and resuming his DBS. He just moving his hands and feet but not proximally. No obvious focality. Spoke to patient's niece, and they were planning to decrease Sinemet to 1 tablet twice daily. We will decrease Sinemet to 1 tablet twice daily. Also the family has turned back on the DBS. It is not very clear if DBS is working a ppropriately. She will try to contact the [employer] representative check on the status of the DBS to make sure it is working. We will check CT of the head and neck. Suspect critical illness myopathy or worsening Parkinson's from current severe sickness. EEG was performed, which was abnormal due to background slowing of moderate degree, suggestive of generalized cerebral dysfunction as can be seen with toxic metabolic encephalopathy or due to diffuse structural brain abnormality. No focal, lateralized or epileptiform activity was seen. Infection diseases consulted and Dr. Neal discussed with ID and agreed to hold off on pursuing lumbar puncture since does not seem to be meningitis or encephalitis it was felt mostly aspiration pneumonia. C. difficile negative Will defer the rest of the medical management to primary and other specialist PT, OT, speech therapy
[2024-09-12] MEDS: CARBIDOPA-LEVODOPA 25-100 MG 1 EACH TAB PO SCH (16:09)
[2024-09-12 16:48] LABS: Glucose,Whole Blood 97 mg/dL (70-110)
--- NOTE | 2024-09-12 18:54 | CT ---
EXAMINATION TYPE: CT brain arpan wo con DATE OF EXAM: 09/12/2024 6:21 PM COMPARISON: None. CLINICAL INDICATION: Male, 63 years old with history of weakness, ams, weakness, ams TECHNIQUE: CT of the brain is performed utilizing 3 mm thick sections through the posterior fossa and 3 mm thick sections through the remaining calvarium. Study is performed within 24 hours of arrival to the hospital. Contrast used: mL of , (none if empty) CT DLP: 1641.6 mGycm, Automated exposure control for dose reduction was used. FINDINGS: Stimulator leads are evident within the bilateral basal ganglia. No abnormal hyperdensity is present to suggest an acute intracranial hemorrhage. No mass lesion is evident. No acute infarcts are evident. Ventricles and sulci are appropriate for the patient age. Mucosal thickening is through the posterior frontal sinuses anterior bilateral ethmoid air cells IMPRESSIONS: 1. No acute intracranial process. Follow-up MRI can be performed as clinically indicated. CT cervical spine. COMPARISON: None TECHNIQUE: CT of the cervical spine is performed in the axial plane at 2 mm thick sections. Reconstr ucted images in the coronal, and sagittal plane are reviewed on the computer. FINDINGS: No acute fractures are evident. Vertebral body alignment is normal. There is diffuse narrowing of disc height throughout the cervical spine. There is some straightening of the cervical spine Vertebral body heights are preserved. No spinal canal stenosis is evident. Foraminal stenosis is present C4-5 bilaterally secondary to uncovertebral joint hypertrophy. Left for aminal stenosis is present C5-6 mild bilateral foraminal narrowing is present C6-7. Note is made of some pleural fluid in the posterior right apex IMPRESSION: 1. No acute osseous abnormality cervical spine. 2. Degenerative uncovertebral joint hypertrophy contributing to mild cervical spine foraminal stenosi s. [facility], , 09/12/2024 6:52 PM
[2024-09-12 20:09] LABS: Glucose,Whole Blood 90 mg/dL (70-110)
--- NOTE | 2024-09-12 20:38 | P.PN ---
Subjective Progress Note Date: 09/12/24 Patient evaluated today in the intensive care unit remains on the mechanical ventilator. Repeat chest x-ray today shows persistent multifocal acute infiltrate. Patient remains on a course of IV Zosyn with concern for aspiration pneumonia. Patient has been off sedation for over 48 hours now without impro vement in his mentation neurology was consulted for the same. EEG has been ordered. Additionally neurology had recommended infectious disease consultation secondary to the elevated white blood cell count currently today to 17.8. His renal function has improved. He continues on IV hydrocortisone. 09/06/2024 Patient evaluated in follow-up in the intensive care unit. Chest x-ray shows persistent bilateral multifocal infiltrates. White blood cell count today 23.3, potassium 3.3, BUN of 65, creatinine 1.14. Patient is currently being weaned off the IV solucortef. He has had multiple episodes of loose stools and C. difficile will be checked. He remains off sedation is slightly more responsive today currently with no plans for lumbar puncture but will be going for an EEG tomorrow. 09/07/2024 Patient is seen in follow-up today continues to be in the ICU with neurology following scheduled for EEG. Patient is currently sitting up remains on mechanical ventilation off sedation and is following some commands for me on exam. Awaiting further neurological examination. FiO2 is currently 40% with a PEEP of 5. Nephrology following as well as kidney functions are improving with a creatinine of 1.09, potassium is 3.5 and sodium slightly elevated at 146. Continue with tube feeds and free water flushes and will follow-up with repeat labs. Overall prognosis is guarded at this time. Continue with antibiotics as well. Infectious diseases following. 09/08/2024 Patient seen in follow-up this morning and recently just extubated approximately 30 minutes prior to exam. Patient is continued on 5 L via nasal cannula and will wean as tolerated. Patient currently n.p.o. and tube feeds are on hold and awaiting follow-up speech eval to assess swallow. Patient continues to have copious amounts of diarrhea and C. difficile testing was negative. Will add anti-diarrheal agents and monitor for improvements. Consider Questran once diet is slightly more advanced. Patient with extensive weakness will need PT/OT therapy evaluation. Continue IV antibiotics with infectious disease following. White count remains elevated and patient is afebrile. 09/09/2024 Patient is seen in follow-up today maintained on 4 to 5 L via nasal cannula maintaining oxygen saturations. Diet has been advanced and recommend to continue with aspiration precautions. Patient is continued on antibiotics with infectious disease following. White count minimally trending down and patient is afebrile. Patient with significant weakness needs PT/OT therapy and will need ECF on discharge. Patient continues with a fecal management system having multiple episodes of loose stool and C. difficile testing was negative. Imodium added as needed. 09/10/2024 Patient continues in the ICU on 4 L via nasal cannula. Patient is tolerating diet thus far although strongly recommend aspiration precautions. Patient is significantly weak including swallow and upper and lower extremities. Patient is working with physical therapy and will need extensive therapy on discharge. Patient to be evaluated by PT/OT with social work following working on possible discharge planning to ECF. Patient continues to have significant diarrhea maintained on fecal management system and C. difficile testing has been negative. Patient will continue on antibiotics and will discuss further with infectious disease regarding initiating Questran. 09/11/2024 Patient is seen in follow-up in the ICU awaiting a 3 S. overflow bed currently maintained on 4 L. Patient is scheduled to undergo reevaluation with speech and modified barium as patient has no appetite, not eating very well and extremely weak not tolerating much intake. Neurology following as well and brain stimulator being turned on per family. Patient continues on antibiotics with infectious disease following and is maintained on Questran and fecal management system has been removed. Per patient he continues to have abdominal discomfort and loose stools but is improving. Patient is extremely lethargic although does answer and follow simple commands on exam. Unable to tolerate much commands with upper and lower extremities as they are significantly weak. Recommend PT/OT therapy daily. Overall prognosis is guarded at this time. 09/12/2024 Patient is evaluated today in follow up on the [address] [place] [id number] unit has been transferred out of the ICU. Continues on 4L of oxygen via nasal cannula. Patient underwent barium swallow and speech therapy follow up has been started on pureed diet with strict aspirations precautions and 1:1 supervision. Indwelling catheter remains in place. Patient having waxing and waning mentation episodes where he is starting off and requires frequent reorientation. He does have hand graps but is unable to hold arms up against gravity. Labs today reveals white blood cell count 11.2, hgb 9.9, sodium 140, potassium 3.7, BUN 19, creatinine 0.90. Review of systems: Constitutional: reports of fatigue, no fever, or chills Cardiovascular: No reports of chest pain or palpitations Respiratory: No reports of worsening shortness of breath, weak cough GI: No reports of nausea, no vomiting, or diarrhea, reports to not really wanting to eat and no appetite : No reports of dysuria or retention, has indwelling [place] catheter Neurovascular: reports of continued weakness All medications have been reviewed Physical exam: GENERAL: This is a 63-year-old male who is lethargic although arousable recently extubated 09/08/2024, currently on 2-4 L via nasal cannula and off sedation, sitting up following some commands, elderly appearing, well-developed, obese HEENT: Pupils are round and equally reacting to light. EOMI. No scleral icterus. No conjunctival pallor. Normocephalic, atraumatic. No pharyngeal erythema. No thyromegaly. CARDIOVASCULAR: S1 and S2 muffled PULMONARY: Diminished breath sounds bilaterally with some coarse rhonchi and faint crackles noted ABDOMEN: Soft, obese, nontender, nondistended, normoactive bowel sounds. No palpable organomegaly. MUSCULOSKELETAL: No joint swelling or deformity. EXTREMITIES: No cyanosis, clubbing, edematous and extremely weak, bilateral upper and lower extremities 2+ pitting edema NEUROLOGICAL: Gross neurological examination did not reveal any focal deficits. Diffusely weak SKIN: No rashes. no petechiae. Pale Assessment: Acute hypoxic respiratory failure secondary to bilateral lower lobe pneumonia, likely aspiration requiring intubation and mechanical ventilation, status post successful extubation 09/08/2024, currently maintained on 2 L via nasal cannula Sepsis with septic shock secondary to above, resolved Altered mental status, multifactorial, likely secondary to metabolic encephalopathy with concerns of septic encephalopathy from aspiration pneumonia per neurology partial small bowel obstruction and right inguinal hernia with loops of small bowel, improved, having multiple bowel movements, improved and started on diet Acute kidney injury, acute tubular necrosis secondary to sepsis and hypotension, improving History of solitary left kidney with marked hydronephrosis of the right, evaluated by urology and appears chronic Leukocytosis could be steroid induced vs infection. Trending down History of Parkinson disease History of dementia Deep tissue injury of the coccyx area, present on admission Stage III pressure ulcers on left and right buttock, hospital-acquired Severe protein calorie malnutrition History of brain stimulator, being turned back on per neurology 09/10/2024 Obesity with a BMI of 30.1 GI prophylaxis DVT prophylaxis Full code Plan: Patient has been transferred out of the ICU. Patient waxing waning on mentation and alertness although does respond to questions and commands appropriately, unable to perform much as patient has significant upper and lower extremity swelling along with weakness. Started on pureed diet with 1:1 supervision and strict aspiration precautions with head of the bed up 45 degrees at all times. Not much of an appetite and is not meeting caloric needs. General surgery following and discussing possible PEG tube although family does not want this. Patient is still full code and this needs to be discussed in detail Patient was continued on mechanical ventilation and successfully extubated 09/08/2024, currently maintained on 2 L via nasal cannula. Will encourage incentive spirometer use and wean FiO2 as tolerated. Patient is having difficulties as he has extreme upper and lower extremity weakness and unable to hold the spirometer Neurology following and EEG was abnormal with encephalopathy with no epileptiform discharges noted, brain stimulator being turned back on by family per neurology ID following and continued on zosyn Urology team consulted for his right hydronephrosis following along. No plans for surgical intervention at this time and most likely chronic. Highly recommend continued aspiration precautions and head of the bed elevated 30 to 45 degrees at all times and supervision with meals. Repeat labs in the AM Overall prognosis guarded at this time Will discuss further with case management/social work regarding discharge planning and will need evaluation by PT/OT therapy Again, patient remains full code and this needs to be discussed in detail with family as overall prognosis is extremely poor and guarded at this time The impression and plan of care has been dictated by Rocío Vasquez, Nurse Practitioner as directed. Dr. Frank MD I have performed a history and physical examination and medical decision making of this patient, discussed the same with the dictator, and agree with the dictators assessment and plan as written, documented as a scribe. Based on total visit time, I have performed more than 50% of this visit. Objective - Vital Signs Vital signs: Vital Signs Temp 97.8 F 09/12/24 08:51 Pulse 78 09/12/24 12:22 Resp 16 09/12/24 11:43 BP 111/58 09/12/24 11:43 Pulse Ox 98 09/12/24 11:43 FiO2 40 09/08/24 08:18 Intake & Output 09/11/24 09/12/24 09/12/24 18:59 06:59 18:59 Intake Total 70 Output Total 900 800 Balance -830 -800 Weight 91.5 kg 91.5 kg Intake: IV 70 0.9 kvo 70 Output: Urine 900 800 Uretheral ([place]) 100 Other: Voiding Method Indwelling Catheter Indwelling Catheter Indwelling Catheter ABP, PAP, CO, CI - Last Documented Arterial Blood Pressure 129/51 - Labs CBC & Chem 7: 09/12/24 12:18 09/12/24 12:18 Labs: Abnormal Lab Results - Last 24 Hours (Table) 09/12/24 09/12/24 09/12/24 Range/Units 06:11 12:18 12:18 WBC 11.2 H (3.8-10.6) k/uL RBC 3.39 L (4.30-5.90) m/uL Hgb 9.9 L (13.0-17.5) gm/dL Hct 30.0 L (39.0-53.0) % Neutrophils # 9.3 H (1.3-7.7) k/uL Chloride 113 H (98-107) mmol/L POC Glucose (mg/dL) 112 H (70-110) mg/dL Calcium 7.7 L (8.4-10.2) mg/dL Assessment and Plan Time with Patient: Less than 30
[2024-09-13 06:31] LABS: Basophils % (A) 0 %; Eosinophils # (A) 0.1 k/uL (0-0.7); Eosinophils % (A) 1 %; HCT 32.2 % (39.0-53.0); HGB 10.5 gm/dL (13.0-17.5); Lymphocytes # (A) 1.2 k/uL (1.0-4.8); Lymphocytes % (A) 10 %; MCHC 32.6 g/dL (31.0-37.0); MCV 89.1 fL (80.0-100.0); Mean Platelet Volume 6.9; Monocytes # (A) 0.9 k/uL (0-1.0); Monocytes % (A) 7 %; Neutrophils # (A) 10.4 k/uL (1.3-7.7); Neutrophils % (A) 82 %; Platelet Count 252 k/uL (150-450); RBC 3.61 m/uL (4.30-5.90); RDW 14.1 % (11.5-15.5); WBC 12.8 k/uL (3.8-10.6)
[2024-09-13 06:32] LABS: Glucose,Whole Blood 81 mg/dL (70-110)
[2024-09-13] MEDS: CARBIDOPA-LEVODOPA 25-100 MG 1 EACH TAB PO SCH (06:39)
[2024-09-13 06:47] LABS: African American GFR (CKD) >90 (>60 ml/min/1.73 sqM); Anion Gap 7 mmol/L; Blood Urea Nitrogen 18 mg/dL (9-20); Carbon Dioxide 24 mmol/L (22-30); Chloride 108 mmol/L (98-107); Glucose 82 mg/dL (74-99); Magnesium 1.7 mg/dL (1.6-2.3); Non-African American GFR(CKD) 80 (>60 ml/min/1.73 sqM); Potassium 3.9 mmol/L (3.5-5.1); Sodium 139 mmol/L (137-145)
[2024-09-13] MEDS ORDERED: Magnesium Replacement Protocol 1 EACH MISC MISCELLANE PRN (10:42)
[2024-09-13 11:34] LABS: Glucose,Whole Blood 82 mg/dL (70-110)
--- NOTE | 2024-09-13 12:22 | P.PN ---
Subjective Patient is seen for follow-up for acute kidney injury. Serum sodium at 139 Good urine output Serum creatinine decreased to 0.9 today. Objective - Vital Signs Vital signs: Vital Signs Temp 98.6 F 09/13/24 11:21 Pulse 78 09/13/24 12:07 Resp 17 09/13/24 11:21 BP 143/76 09/13/24 11:21 Pulse Ox 97 09/13/24 11:21 FiO2 40 09/08/24 08:18 Intake & Output 09/12/24 09/13/24 09/13/24 18:59 06:59 18:59 Intake Total 240 Balance 240 Weight 86.9 kg Intake: Oral 240 Other: Voiding Method Indwelling Catheter Diaper Diaper # Voids 1 1 1 # Bowel Movements 1 ABP, PAP, CO, CI - Last Documented Arterial Blood Pressure 129/51 - Exam Patient has been extubated. He does not communicate much. He had been awake and answering questions earlier. Examination of the heart S1 and S2 Examination of the lungs bilateral breath sounds are heard Abdomen is soft nontender Examination of lower extremities shows 1+ edema and scrotal edema, scrotal edema noted - Labs CBC & Chem 7: 09/13/24 05:46 09/13/24 05:46 Labs: Abnormal Lab Results - Last 24 Hours (Table) 09/12/24 09/12/24 09/13/24 Range/Units 12:18 12:18 05:46 WBC 11.2 H 12.8 H (3.8-10.6) k/uL RBC 3.39 L 3.61 L (4.30-5.90) m/uL Hgb 9.9 L 10.5 L (13.0-17.5) gm/dL Hct 30.0 L 32.2 L (39.0-53.0) % Neutrophils # 9.3 H 10.4 H (1.3-7.7) k/uL Chloride 113 H (98-107) mmol/L Calcium 7.7 L (8.4-10.2) mg/dL 09/13/24 Range/Units 05:46 WBC (3.8-10.6) k/uL RBC (4.30-5.90) m/uL Hgb (13.0-17.5) gm/dL Hct (39.0-53.0) % Neutrophils # (1.3-7.7) k/uL Chloride 108 H (98-107) mmol/L Calcium 8.0 L (8.4-10.2) mg/dL Assessment and Plan Assessment: 1. Acute kidney injury ATN currently nonoliguric secondary to sepsis and hypotension, improving. Solitary functioning kidney which is the left kidney. Patient has chronic hydronephrosis of right kidney with possibly minimal function. 2. Right hydronephrosis noted. This appears to be chronic. Urology on consult. No plans for intervention. 3. Acute hypoxic respiratory failure currently on on the ventilator. Status post extubation 4. Aspiration pneumonia 5. History of Parkinson's disease 6. Metabolic acidosis secondary to acute kidney injury 7. Hypokalemia status post replacement 8. Hypernatremia associated with free water deficit Plan: DC D5W and encourage increased oral intake Check labs in a.m.
[2024-09-13] MEDS: MAGNESIUM SULFATE-D5W PMX 1 GM in DEXTROSE/WATER 1 100ML.BAG IVPB ONE (12:32)
--- NOTE | 2024-09-13 12:51 | P.PN ---
Subjective Progress Note Date: 09/13/24 On 09/07/2024, the patient is being seen for a follow-up. I the patient is known to have Parkinson's disease, quite extensive and the patient has a brain stimulator in place in addition to history of hypertension hyperlipidemia who presented to the emergency department with few days of nausea and emesis and shortness of breath. The patient was also having increased lethargy. In the emergency, the patient was in significant distress and the patient was placed on a BiPAP and a CAT scan of the abdomen and pelvis was obtained that showed bibasilar airspace disease consolidation with air bronchograms and small bilateral pleural effusion. There was also a right inguinal hernia containing loop of small bowel and possible partial small bowel obstruction. Normal caliber colon and mild fecal retention. Was also mild right-sided hydronephrosis and questionable obstruction at the level of the ureteropelvic junction. NG tube was inserted and there was a total of 1 L of fecal like material content evacuated. Subsequently, the patient went respiratory failure, while in the emergency, the patient was intubated and placed on a mechanical ventilator on 09/01/2024. For now, the patient remains intubated on the mechanical ventilator. This morning, the patient remains on assist-control mode rate of 24, tidal volume of 500, FiO2 40% with a PEEP of 5. Blood gases are still pending from this morning. The chest x-ray from today is showing a nerve stimulator over the left anterior chest area and some limited hazy bilateral pulmonary infiltrates especially on the right. The sputum sample collected on 09/01/2024 was consistent with Richelle and the patient remains on IV Zosyn. The patient has been off sedation for several days and unfortunately, the neurologic response has been suboptimal as the patient remains encephalopathic. CAT scan of the brain was done on 09/04/2024 that showed no acute abnormalities and the patient was seen by neurology. A lumbar puncture has not been done. The abdirashid haji remains on vital high-protein at rate of 75 cc an hour for nutritional support. IV fluids KVO. General surgical services on the case for the partial small bowel obstruction with right inguinal hernia and recommendations were conservative management for partial small bowel obstruction He is off propofol for 72 hours. EEG is to be done this morning. On 09/08/2024, the patient is being seen for a follow-up. Much more awake compared to yesterday. Following simple commands. Has an adequate cough. Noted the patient has been off sedation for the past 96 hours. This morning, the patient is on assist-control mode of mechanical ventilation at rate of 16, tidal volume of 500, FiO2 of 40% with a PEEP of 5. Blood gas showed a pH of 7.45 with a pCO2 of 43 and pO2 of 93. Hemodynamically stable. Cardiac rhythm is sinus. The patient continues to receive vital high-protein for enteral fe eding and nutritional support. The patient is having diarrhea and has a fecal management system in place. Otherwise, no other significant events overnight. Blood work from today shows a white cell count of 16 with a hemoglobin 10.5 and platelet count of 162. Sodium is at 144, BUN 66 with a creatinine of 1.1. Chest x-ray was reviewed and it shows adequate positioning of the orotracheal tube. The patient continues to have some bibasilar atelectatic changes and small effusion in the left lung base, overall, unchanged compared to yesterday's chest x-ray. EEG was consistent with moderate degree of encephalopathy and no seizure activity. On 09/09/2024, the patient is extubated and is currently on 5 L of oxygen nasal cannula. Weak cough. No signs of any respiratory distress. Chest x-ray showing patchy bibasilar pulm infiltrates/atelectasis. Neurologically, arousable, sluggish in his response, extremely weak, rigid, has some tremors and overall evaluation is consistent with his history of Parkinson's disease. Seems to be in a low mood state. He does communicate however is very sluggish and slow in his responses. The patient was given a dose of Lasix yesterday. Fluid balance is -3 L over the past 24 hours. Electrolytes from today showed a sodium level of 147, potassium of 4.3, bicarb of 31 with a BUN of 15 and creatinine 1.1. WBC count at 18.3 with a hemoglobin of 11.7. The patient remains on IV Zosyn and the patient is also on Diflucan. He has a brain stimulator and he remains on Sinemet. Rest of the medications remain unchanged. He was extubated on 09/08/2024. On 09/10/2024, the patient is being seen for a follow-up. The patient is still very much lethargic, weak, has a weak cough and has a poor ability to swallow. He is arousable, he follows simple commands. He has a very flat affect. Overall respiratory status is stable and the patient remains on oxygen 2 L/min nasal cannula. No interval worsening shortness of breath. Chest x-ray findings shows limited infiltration of the lung base bilaterally. Remains on half-normal saline at rate of 75 cc an hour. Remains on Zosyn and Diflucan. Fluid balance is -1.4 L over the past 24 hours. The white cell count is 15 with a hemoglobin 10.7 and platelet count of 207. BUN 36 with a creatinine of 1.1 and a sodium levels at 144 and a potassium level is at 4.0. I have made recommendations for a PEG tube insertion as I do not see this patient able to swallow in the immediate future. Overall respiratory status is stable. Hemodynamically stable and the patient is on no pressors. The patient remains extubated and currently on 2 L of oxygen by nasal cannula. Patient was extubated on 09/08/2024. On 09/11/2024, the patient is being seen for a follow-up. Neurologically, the level of consciousness is fluctuating. At times, the patient is noted to be more alert than others. The patient's brain stimulator has been activated again. I am still concerned about his ability to meet his caloric requirements. The patient passed a swallow evaluation. However, he does not want to eat at this point. As such, his oral intake remains quite minimal. He remains on half-normal saline at rate of 75 cc an hour. The white cell count of 13 with a heme of 10.9 and a platelet count of 193. Sodium is at 144 with a potassium level of 450 with a bicarb of 25 with a BUN of 25 and a creatinine of 0.95. Remains on DuoNeb nebulized treatments [id number]. Remains on Sinemet. Remains on IV Zosyn. NovoLog sliding scale coverage. Remains on Diflucan. Remains on Lipitor 20 mg p.o. daily Trueman 25 mg p.o. daily. Afebrile for now. No focal neurological deficit. Profound weakness in all 4 extremities. 09/12/2024, the patient is being seen for a follow-up. The patient was moved out of the intensive care unit yesterday. The patient seems to be a slightly more alert and communicating. He is currently on room air oxygen. Oral intake remains poor. Remains on IV Zosyn. White cell count 11 with a hemoglobin 9.9 and a platelet count of 229. No other significant events overnight. Extensive ly debilitated due to his chronic parkinsonism and dementia. On 09/13/2024, the patient remains essentially unchanged. He is communicating. Oral intake remains quite diminished. Respiratory status is stable and the patient is currently on 2 L of oxygen by nasal cannula with a pulse ox of 97%. CAT scan of the head and cervical spine was done yesterday and showed no acute intracranial process. No cervical spine abnormalities. No mass effect. No infarcts. Labs from today show a white cell count of 12 with a hemoglobin 10 and a platelet count of 252. BUN is 18 with a creatinine of 0.9 and sodium levels at 139. Objective - Vital Signs Vital signs: Vital Signs Temp 98.9 F 09/13/24 09:40 Pulse 84 09/13/24 09:02 Resp 17 09/13/24 08:02 BP 134/76 09/13/24 08:02 Pulse Ox 97 09/13/24 08:02 FiO2 40 09/08/24 08:18 Intake & Output 09/12/24 09/13/24 09/13/24 18:59 06:59 18:59 Intake Total 240 Balance 240 Weight 86.9 kg Intake: Oral 240 Other: Voiding Method Indwelling Catheter Diaper Diaper # Voids 1 1 1 # Bowel Movements 1 ABP, PAP, CO, CI - Last Documented Arterial Blood Pressure 129/51 - Exam No acute distress, lethargic, weak, rigid, consistent with Parkinson disease and the patient is not showing any signs of an acute respiratory distress. He has a weak cough currently on room air oxygen HEENT examination is grossly unremarkable. Neck supple. Full range of motion. No adenopathy thyromegaly or neck vein dist ention. Cardiovascular examination reveals regular rhythm rate. S1-S2 normal. No S3 or S4. No discernible murmur noted. Lungs reveal mostly clear breath sounds. Scattered rhonchi are noted. No wheezes or crackles. Breath sounds are equal. Abdomen soft with bowel sounds. No masses or tenderness. Extremities are intact. No cyanosis clubbing or edema. Skin is without rash or lesion. Neurologic rigid and weak and the patient has generalized motor weakness in all 4 extremities. Able to communicate. Exam is consistent with advanced Parkinson disease with cogwheel rigidity. The patient also has a very flat affect. - Labs CBC & Chem 7: 09/13/24 05:46 09/13/24 05:46 Labs: Abnormal Lab Results - Last 24 Hours (Table) 09/12/24 09/12/24 09/13/24 Range/Units 12:18 12:18 05:46 WBC 11.2 H 12.8 H (3.8-10.6) k/uL RBC 3.39 L 3.61 L (4.30-5.90) m/uL Hgb 9.9 L 10.5 L (13.0-17.5) gm/dL Hct 30.0 L 32.2 L (39.0-53.0) % Neutrophils # 9.3 H 10.4 H (1.3-7.7) k/uL Chloride 113 H (98-107) mmol/L Calcium 7.7 L (8.4-10.2) mg/dL 09/13/24 Range/Units 05:46 WBC (3.8-10.6) k/uL RBC (4.30-5.90) m/uL Hgb (13.0-17.5) gm/dL Hct (39.0-53.0) % Neutrophils # (1.3-7.7) k/uL Chloride 108 H (98-107) mmol/L Calcium 8.0 L (8.4-10.2) mg/dL Assessment and Plan Plan: Acute hypoxemic and hypercapnic respiratory failure, secondary to bilateral lower lobe pneumonia likely of a aspiration, requiring intubation and mechanical ventilation as of 09/01/2024. The patient was extubated on 09/08/2024 and the patient is currently on 2 L of O2 nasal cannula. Some limited atelectatic change in infiltrates are seen in the lung base and the patient remains on IV Zosyn. Overall respiratory status is stable. Nevertheless, due to his advanced Parkinson's disease and chronic debility, the patient has a very poor cough and poor ability to do pulmonary toileting. The patient remains profoundly weak. Currently on 2 L of oxygen by nasal cannula Diminished level of consciousness, rule out metabolic/septic. Currently being evaluated by neurology. CT scan negative. Neurologically, improved, the patient is following simple commands. Overall neuroexam is consistent with Parkinson's disease. The patient continues to be profoundly weak and rigid. Neurologically, the patient is has advanced signs of parkinsonism and dementia . The patient continues to have a flat affect. The brain stimulator has been activated. Neurology is on the case. The patient remains on Sinemet. Profound motor weakness in all 4 extremities. Slightly more alert on today's evaluation. CAT scan of the brain and the neck was obtained on 09/12/2024 and showed no acute abnormalities. Possible partial small bowel obstruction, on CT scan with a small right inguinal hernia, recovered, the patient passed a swallow evaluation Acute leukocytosis, improving Acute kidney injury, recovered Right-sided hydronephrosis, urology on the case and no intervention has been recommended. This is to be followed as the patient's renal function continues to improve. History of hypertension. History of hyperlipidemia. History of Parkinson's disease Hyperchloremic hypernatremia Plan: Aggressive pulmonary toileting Incentive spirometer Currently on 2 L O2 nasal cannula Swallow evaluation has been done and the patient passed a swallow evaluation. Nevertheless, his oral intake remains extremely diminished and the patient is not meeting his caloric requirements. Oral intake remains poor Continue antibiotics and the patient remains on IV Zosyn continue Diflucan CAT scan of the head and the neck was noted stool for C diff is negative, diarrhea is subsiding Long-term prognosis remains poor.
--- NOTE | 2024-09-13 14:18 | P.PN ---
Subjective Progress Note Date: 09/13/24 Principal diagnosis: Reason for follow-up is leukocytosis/aspiration pneumonia Patient is a 63-year-old male with a past medical history significant for hypertension presenting to the hospital for evaluation of nausea vomiting and increased work of breathing, CT of abdominal pelvis did shows evidence of bibasilar consolidation with air bronchogram and the patient had fever concerning for aspiration pneumonia, he did have elevated white count prompted this consultation. On today's evaluation that is 09/13/2024, Patient is afebrile patient is currently on 2 L nasal oxygen and breathing comfortably patient did have decreased oral intake however denied any specific complaint when asked no vomiting or diarrhea reported by the nursing staff. Patient white count is 12.8 creatinine 0.99 blood and urine culture negative sputum with the Richelle Objective - Vital Signs Vital signs: Vital Signs Temp 98.6 F 09/13/24 11:21 Pulse 78 09/13/24 12:07 Resp 17 09/13/24 11:21 BP 143/76 09/13/24 11:21 Pulse Ox 97 09/13/24 11:21 FiO2 40 09/08/24 08:18 Intake & Output 09/12/24 09/13/24 09/13/24 18:59 06:59 18:59 Intake Total 240 Balance 240 Weight 86.9 kg Intake: Oral 240 Other: Voiding Method Indwelling Catheter Diaper Diaper # Voids 1 1 1 # Bowel Movements 1 1 ABP, PAP, CO, CI - Last Documented Arterial Blood Pressure 129/51 - Exam GENERAL DESCRIPTION: An elderly male lying in bed no distress RESPIRATORY SYSTEM: Unlabored breathing , decreased breath sounds at bases HEART: S1 S2 regular rate and rhythm , ABDOMEN: Soft , no tenderness EXTREMITIES: No edema feet - Labs CBC & Chem 7: 09/13/24 05:46 09/13/24 05:46 Labs: Abnormal Lab Results - Last 24 Hours (Table) 09/13/24 09/13/24 Range/Units 05:46 05:46 WBC 12.8 H (3.8-10.6) k/uL RBC 3.61 L (4.30-5.90) m/uL Hgb 10.5 L (13.0-17.5) gm/dL Hct 32.2 L (39.0-53.0) % Neutrophils # 10.4 H (1.3-7.7) k/uL Chloride 108 H (98-107) mmol/L Calcium 8.0 L (8.4-10.2) mg/dL Assessment and Plan (1) Leukocytosis Current Visit: Yes Status: Acute Code(s): D72.829 - ELEVATED WHITE BLOOD CELL COUNT, UNSPECIFIED SNOMED Code(s): 095681620 (2) Aspiration pneumonia Current Visit: Yes Status: Acute Code(s): J69.0 - PNEUMONITIS DUE TO INHALATION OF FOOD AND VOMIT SNOMED Code(s): 031447231 Plan: 1patient with initial presentation to hospital with nausea and vomiting patient also have a fever on admission that has resolved as of 09/01/[address] abdominal pelvis did not show any obstruction but evidence of bibasilar consolidation concerning for possible aspiration pneumonia sputum has been candidal because patient did have elevated white count could be related to his pneumonia possible aspiration etiology versus steroids that has been discontinued however did have worsening of his white count question of oropharyngeal candidiasis as the patient did have positive sputum with Richelle 2-patient stool for C. difficile negative patient currently on Questran as needed for symptomatic relief of his diarrhea 3- patient is afebrile and the patient white count is slightly up today and will monitor closely 4 patient is currently on Zosyn and Diflucan plan is for oral antibiotics on discharge Dictation was produced using [employer] dictation software. please excuse any grammatical, word or spelling errors. Time with Patient: Less than 30
[2024-09-13 16:05] LABS: Glucose,Whole Blood 82 mg/dL (70-110)
--- NOTE | 2024-09-13 19:47 | P.PN ---
Subjective Progress Note Date: 09/13/24 Patient evaluated today in the intensive care unit remains on the mechanical ventilator. Repeat chest x-ray today shows persistent multifocal acute infiltrate. Patient remains on a course of IV Zosyn with concern for aspiration pneumonia. Patient has been off sedation for over 48 hours now without impro vement in his mentation neurology was consulted for the same. EEG has been ordered. Additionally neurology had recommended infectious disease consultation secondary to the elevated white blood cell count currently today to 17.8. His renal function has improved. He continues on IV hydrocortisone. 09/06/2024 Patient evaluated in follow-up in the intensive care unit. Chest x-ray shows persistent bilateral multifocal infiltrates. White blood cell count today 23.3, potassium 3.3, BUN of 65, creatinine 1.14. Patient is currently being weaned off the IV solucortef. He has had multiple episodes of loose stools and C. difficile will be checked. He remains off sedation is slightly more responsive today currently with no plans for lumbar puncture but will be going for an EEG tomorrow. 09/07/2024 Patient is seen in follow-up today continues to be in the ICU with neurology following scheduled for EEG. Patient is currently sitting up remains on mechanical ventilation off sedation and is following some commands for me on exam. Awaiting further neurological examination. FiO2 is currently 40% with a PEEP of 5. Nephrology following as well as kidney functions are improving with a creatinine of 1.09, potassium is 3.5 and sodium slightly elevated at 146. Continue with tube feeds and free water flushes and will follow-up with repeat labs. Overall prognosis is guarded at this time. Continue with antibiotics as well. Infectious diseases following. 09/08/2024 Patient seen in follow-up this morning and recently just extubated approximately 30 minutes prior to exam. Patient is continued on 5 L via nasal cannula and will wean as tolerated. Patient currently n.p.o. and tube feeds are on hold and awaiting follow-up speech eval to assess swallow. Patient continues to have copious amounts of diarrhea and C. difficile testing was negative. Will add anti-diarrheal agents and monitor for improvements. Consider Questran once diet is slightly more advanced. Patient with extensive weakness will need PT/OT therapy evaluation. Continue IV antibiotics with infectious disease following. White count remains elevated and patient is afebrile. 09/09/2024 Patient is seen in follow-up today maintained on 4 to 5 L via nasal cannula maintaining oxygen saturations. Diet has been advanced and recommend to continue with aspiration precautions. Patient is continued on antibiotics with infectious disease following. White count minimally trending down and patient is afebrile. Patient with significant weakness needs PT/OT therapy and will need ECF on discharge. Patient continues with a fecal management system having multiple episodes of loose stool and C. difficile testing was negative. Imodium added as needed. 09/10/2024 Patient continues in the ICU on 4 L via nasal cannula. Patient is tolerating diet thus far although strongly recommend aspiration precautions. Patient is significantly weak including swallow and upper and lower extremities. Patient is working with physical therapy and will need extensive therapy on discharge. Patient to be evaluated by PT/OT with social work following working on possible discharge planning to ECF. Patient continues to have significant diarrhea maintained on fecal management system and C. difficile testing has been negative. Patient will continue on antibiotics and will discuss further with infectious disease regarding initiating Questran. 09/11/2024 Patient is seen in follow-up in the ICU awaiting a 3 S. overflow bed currently maintained on 4 L. Patient is scheduled to undergo reevaluation with speech and modified barium as patient has no appetite, not eating very well and extremely weak not tolerating much intake. Neurology following as well and brain stimulator being turned on per family. Patient continues on antibiotics with infectious disease following and is maintained on Questran and fecal management system has been removed. Per patient he continues to have abdominal discomfort and loose stools but is improving. Patient is extremely lethargic although does answer and follow simple commands on exam. Unable to tolerate much commands with upper and lower extremities as they are significantly weak. Recommend PT/OT therapy daily. Overall prognosis is guarded at this time. 09/12/2024 Patient is evaluated today in follow up on the [address] [place] [address] unit has been transferred out of the ICU. Continues on 4L of oxygen via nasal cannula. Patient underwent barium swallow and speech therapy follow up has been started on pureed diet with strict aspirations precautions and 1:1 supervision. Indwelling catheter remains in place. Patient having waxing and waning mentation episodes where he is starting off and requires frequent reorientation. He does have hand graps but is unable to hold arms up against gravity. Labs today reveals white blood cell count 11.2, hgb 9.9, sodium 140, potassium 3.7, BUN 19, creatinine 0.90. 09/13/2024 Patient evaluated in follow up on the [address] [place] [address] unit. Had cervical and brain CT last night with no acute intracranial process. Has stimulator leads within the bilateral basal ganglia. There is no acute osseous abnormality of the cervical spine. Degenerative uncovertebral joint hypertrophy contributing to mild cervical spine foraminal stenosis. White blood cell count 12.8, hgb 10.5, BUN 18, creatinine 0.99. Magnesium 1.7. Review of systems: Constitutional: reports of fatigue, no fever, or chills Cardiovascular: No reports of chest pain or palpitations Respiratory: No reports of worsening shortness of breath, weak cough GI: No reports of nausea, no vomiting, or diarrhea, reports to not really wanting to eat and no appetite : No reports of dysuria or retention, has indwelling [place]en[place] catheter Neurovascular: reports of continued weakness All medications have been reviewed Physical exam: GENERAL: This is a 63-year-old male who is lethargic although arousable recently extubated 09/08/2024, currently on 2-4 L via nasal cannula and off sedation, sitting up following some commands, elderly appearing, well-developed, obese HEENT: Pupils are round and equally reacting to light. EOMI. No scleral icterus. No conjunctival pallor. Normocephalic, atraumatic. No pharyngeal erythema. No thyromegaly. CARDIOVASCULAR: S1 and S2 muffled PULMONARY: Diminished breath sounds bilaterally with some coarse rhonchi and faint crackles noted ABDOMEN: Soft, obese, nontender, nondistended, normoactive bowel sounds. No palpable organomegaly. MUSCULOSKELETAL: No joint swelling or deformity. EXTREMITIES: No cyanosis, clubbing, edematous and extremely weak, bilateral upper and lower extremities 2+ pitting edema NEUROLOGICAL: Gross neurological examination did not reveal any focal deficits. Diffusely weak SKIN: No rashes. no petechiae. Pale Assessment: Acute hypoxic respiratory failure secondary to bilateral lower lobe pneumonia, likely aspiration requiring intubation and mechanical ventilation, status post successful extubation 09/08/2024, currently maintained on 2 L via nasal cannula Sepsis with septic shock secondary to above, resolved Altered mental status, multifactorial, likely secondary to metabolic encephalopathy with concerns of septic encephalopathy from aspiration pneumonia per neurology partial small bowel obstruction and right inguinal hernia with loops of small bowel, improved, having multiple bowel movements, improved and started on diet Acute kidney injury, acute tubular necrosis secondary to sepsis and hypotension, improving History of solitary left kidney with marked hydronephrosis of the right, evaluated by urology and appears chronic Leukocytosis could be steroid induced vs infection. Trending down History of Parkinson disease History of dementia Deep tissue injury of the coccyx area, present on admission Stage III pressure ulcers on left and right buttock, hospital-acquired Severe protein calorie malnutrition History of brain stimulator, being turned back on per neurology 09/10/2024 Obesity with a BMI of 30.1 GI prophylaxis DVT prophylaxis Full code Plan: Patient has been transferred out of the ICU. Patient waxing waning on mentation and alertness although does respond to questions and commands appropriately, unable to perform much as patient has significant upper and lower extremity swelling along with weakness. Started on pureed diet with 1:1 supervision and strict aspiration precautions with head of the bed up 45 degrees at all times. Not much of an appetite and is not meeting caloric needs. General surgery following and discussing possible PEG tube although family does not want this. Patient is still full code and this needs to be discussed in detail Patient was continued on mechanical ventilation and successfully extubated 09/08/2024, currently maintained on 2 L via nasal cannula. Will encourage incentive spirometer use and wean FiO2 as tolerated. Patient is having difficulties as he has extreme upper and lower extremity weakness and unable to hold the spirometer Neurology following and EEG was abnormal with encephalopathy with no epileptiform discharges noted, brain stimulator being turned back on by family per neurology ID following and continued on zosyn Urology team consulted for his right hydronephrosis following along. No plans for surgical intervention at this time and most likely chronic. Highly recommend continued aspiration precautions and head of the bed elevated 30 to 45 degrees at all times and supervision with meals. Repeat labs in the AM Overall prognosis guarded at this time Will discuss further with case management/social work regarding discharge planning and will need evaluation by PT/OT therapy Again, patient remains full code and this needs to be discussed in detail with family as overall prognosis is extremely poor and guarded at this time The impression and plan of care has been dictated by Rocío Vasquez Nurse Practitioner as directed. Dr. Frank MD I have performed a history and physical examination and medical decision making of this patient, discussed the same with the dictator, and agree with the dictators assessment and plan as written, documented as a scribe. Based on total visit time, I have performed more than 50% of this visit. Objective - Vital Signs Vital signs: Vital Signs Temp 98.6 F 09/13/24 11:21 Pulse 78 09/13/24 12:07 Resp 17 09/13/24 11:21 BP 143/76 09/13/24 11:21 Pulse Ox 97 09/13/24 11:21 FiO2 40 09/08/24 08:18 Intake & Output 09/12/24 09/13/24 09/13/24 18:59 06:59 18:59 Intake Total 240 Balance 240 Weight 86.9 kg Intake: Oral 240 Other: Voiding Method Indwelling Catheter Diaper Diaper # Voids 1 1 1 # Bowel Movements 1 1 ABP, PAP, CO, CI - Last Documented Arterial Blood Pressure 129/51 - Labs CBC & Chem 7: 09/13/24 05:46 09/13/24 05:46 Labs: Abnormal Lab Results - Last 24 Hours (Table) 09/13/24 09/13/24 Range/Units 05:46 05:46 WBC 12.8 H (3.8-10.6) k/uL RBC 3.61 L (4.30-5.90) m/uL Hgb 10.5 L (13.0-17.5) gm/dL Hct 32.2 L (39.0-53.0) % Neutrophils # 10.4 H (1.3-7.7) k/uL Chloride 108 H (98-107) mmol/L Calcium 8.0 L (8.4-10.2) mg/dL Assessment and Plan Time with Patient: Less than 30
[2024-09-13 20:13] LABS: Glucose,Whole Blood 97 mg/dL (70-110)
[2024-09-14 00:51] LABS: Glucose,Whole Blood 103 mg/dL (70-110)
[2024-09-14 06:32] LABS: Glucose,Whole Blood 93 mg/dL (70-110)
[2024-09-14 06:49] LABS: Basophils % (A) 0 %; Eosinophils # (A) 0.1 k/uL (0-0.7); Eosinophils % (A) 1 %; HCT 29.6 % (39.0-53.0); HGB 9.5 gm/dL (13.0-17.5); Lymphocytes % (A) 10 %; MCH 28.5 pg (25.0-35.0); MCHC 32.2 g/dL (31.0-37.0); MCV 88.6 fL (80.0-100.0); Mean Platelet Volume 6.8; Monocytes # (A) 0.6 k/uL (0-1.0); Monocytes % (A) 6 %; Neutrophils # (A) 7.9 k/uL (1.3-7.7); Neutrophils % (A) 82 %; Platelet Count 246 k/uL (150-450); RBC 3.34 m/uL (4.30-5.90); RDW 14.3 % (11.5-15.5); WBC 9.6 k/uL (3.8-10.6)
[2024-09-14 07:01] LABS: African American GFR (CKD) >90 (>60 ml/min/1.73 sqM); Anion Gap 3 mmol/L; Blood Urea Nitrogen 15 mg/dL (9-20); Carbon Dioxide 27 mmol/L (22-30); Chloride 109 mmol/L (98-107); Glucose 85 mg/dL (74-99); Magnesium 1.9 mg/dL (1.6-2.3); Non-African American GFR(CKD) 79 (>60 ml/min/1.73 sqM); Potassium 3.7 mmol/L (3.5-5.1); Sodium 139 mmol/L (137-145)
--- NOTE | 2024-09-14 09:56 | P.PN ---
Subjective Patient is seen in follow-up for acute kidney injury. Renal function stable. Sodium level normal. Vital signs are stable. General: Resting in bed. HEENT: On nasal cannula. LUNGS: Scattered rhonchi. HEART: Rate and Rhythm are regular. ABDOMEN: No distention. EXTREMITITES: No edema. Objective - Vital Signs Vital signs: Vital Signs Temp 98.2 F 09/14/24 08:17 Pulse 84 09/14/24 08:55 Resp 14 09/14/24 08:17 BP 121/71 09/14/24 08:17 Pulse Ox 96 09/14/24 08:17 FiO2 40 09/08/24 08:18 Intake & Output 09/13/24 09/14/24 09/14/24 18:59 06:59 18:59 Intake Total 300 Balance 300 Weight 89.5 kg Intake: Oral 300 Other: Voiding Method Diaper Diaper # Voids 1 2 # Bowel Movements 1 ABP, PAP, CO, CI - Last Documented Arterial Blood Pressure 129/51 - Labs CBC & Chem 7: 09/14/24 06:05 09/14/24 06:05 Labs: Abnormal Lab Results - Last 24 Hours (Table) 09/14/24 09/14/24 Range/Units 06:05 06:05 RBC 3.34 L (4.30-5.90) m/uL Hgb 9.5 L (13.0-17.5) gm/dL Hct 29.6 L (39.0-53.0) % Neutrophils # 7.9 H (1.3-7.7) k/uL Chloride 109 H (98-107) mmol/L Calcium 8.0 L (8.4-10.2) mg/dL Assessment and Plan Plan: Assessment: 1. Acute kidney injury secondary to ATN secondary to septic shock. Creatinine 2.84 on admission and is 1.0 today. Nonoliguric. 2. Right hydronephrosis, chronic. Urology following. 3. Acute hypoxic respiratory failure. Intubated. 4. Pneumonia on antibiotics. 5. Hypernatremia from lack of oral water intake and free water losses. Resolved. Plan: Encouraged oral intake, including free water.
[2024-09-14 11:23] LABS: Glucose,Whole Blood 84 mg/dL (70-110)
[2024-09-14 14:36] VITALS: BMI 27.5
--- NOTE | 2024-09-14 16:11 | P.PN ---
Subjective Progress Note Date: 09/14/24 Patient was under the care of by Dr. Barker last week. Please refer to his note for further details. The patient has underlying parkinsonism not improving and he is very weak and there is a concern of some critical illness myopathy. Please refer to Dr. Barker's note for further details. Patient notified me that he does have underlying history of Parkinson's disease and had DBS in the past. Objective - Vital Signs Vital signs: Vital Signs Temp 98.1 F 09/14/24 15:59 Pulse 102 H 09/14/24 15:59 Resp 14 09/14/24 15:59 BP 132/80 09/14/24 15:59 Pulse Ox 96 09/14/24 15:59 FiO2 40 09/08/24 08:18 Intake & Output 09/13/24 09/14/24 09/14/24 18:59 06:59 18:59 Intake Total 300 Balance 300 Weight 89.5 kg 89.5 kg Intake: Oral 300 Other: Voiding Method Diaper Diaper Diaper # Voids 1 2 1 # Bowel Movements 1 ABP, PAP, CO, CI - Last Documented Arterial Blood Pressure 129/51 - Exam General Lying in bed and does not appear in acute distress Neuro is limited because of his overall condition. He is drowsy but is awake well to voice. He is oriented to self only. He is very slow to respond to questions. No facial weakness. Motor strength is very hard to assess because of his overall condition but he is able to show me a thumbs up on the right and slightly moving upper above gravity. He moves the hand slowly. He is able to wiggle the toes. - Labs CBC & Chem 7: 09/14/24 06:05 09/14/24 06:05 Labs: Abnormal Lab Results - Last 24 Hours (Table) 09/14/24 09/14/24 Range/Units 06:05 06:05 RBC 3.34 L (4.30-5.90) m/uL Hgb 9.5 L (13.0-17.5) gm/dL Hct 29.6 L (39.0-53.0) % Neutrophils # 7.9 H (1.3-7.7) k/uL Chloride 109 H (98-107) mmol/L Calcium 8.0 L (8.4-10.2) mg/dL Assessment and Plan Assessment: Altered mental status, likely due to metabolic encephalopathy. Reasons multifactorial as mentioned below. Parkinsonism, not improving. Continues to be very weak, uncertain if patient has developed some critical illness myopathy. Status post extubation 09/08/2024 Septic encephalopathy from aspiration pneumonia, metabolic encephalopathy. Worsening parkinsonism CT of the head is unremarkable for any acute or subacute process. Acute acute kidney injury--resolved Fever and leukocytosis and it was felt patient likely has aspiration pneumonia and its likely due to his vomiting episode Slight transaminitis Acute hypoxemic and hypercapnic respiratory failure secondary to aspiration pneumonia the patient is intubated on the ventilator History of Parkinson disease status post Deep brain stimulator (DBS) History of hypertension Hyperlipidemia Plan: Patient continues to be lethargic, does answer limited amount. His parkinsonism has improved with less rigidity since increasing the dose of Sinemet, and resuming his DBS. He just moving his hands and feet but not proximally. No obvious focality. Dr. Barker spoke to patient's niece, and they were planning to decrease Sinemet to 1 tablet twice daily. We will decrease Sinemet to 1 tablet twice daily. Also the family has turned back on the DBS. It is not very clear if DBS is wor tang appropriately. She will try to contact the [employer] tax compliance representative check on the status of the DBS to make sure it is working. CT of the head and neck: CT of the head reported as no acute intracranial process. For the CT cervical spine she reported as no acute osseous abnormality cervical spine. Degenerative on close vertebral joint hypertrophy contributing to mild cervical spine foraminal stenosis EEG was performed, which was abnormal due to background slowing of moderate degree, suggestive of generalized cerebral dysfunction as can be seen with toxic metabolic encephalopathy or due to diffuse structural brain abnormality. No focal, lateralized or epileptiform activity was seen. Infection diseases is on board. I spoke with the ID more than a week ago when I was on service and they did not feel this was meningeal encephalitis and no need for lumbar puncture. Patient has been afebrile since September 02, 2024. PT, OT, speech therapy Will defer the rest of the medical management to primary and other specialist Time with Patient: Less than 30
[2024-09-14 16:17] LABS: Glucose,Whole Blood 77 mg/dL (70-110)
--- NOTE | 2024-09-14 16:39 | P.PN ---
Subjective Progress Note Date: 09/14/24 SURGICAL PROGRESS NOTE CHIEF COMPLAINT: Aspiration pneumonia HISTORY OF PRESENT ILLNESS: Patient is currently in the cardiac floor. He did have a bowel movement yesterday. He does remain confused. Per nursing staff his oral intake is poor. But he is able to swallow. PHYSICAL EXAM: VITAL SIGNS: Reviewed. GENERAL: no acute distress ABDOMEN: Soft. nondistended. Nontender. Neuro: Awake. Confused. ASSESSMENT: 1. Partial small bowel obstruction with right inguinal hernia containing small bowel. Small bowel obstruction resolved. 2. Aspiration pneumonia and hypoxia 3. Severe protein calorie malnutrition 4. History of Parkinson's PLAN: -Continue to monitor oral intake -Continue to monitor bowel function Physician Storage Battery Inspector note has been reviewed by physician. Signing provider agrees with the documented findings, assessment, and plan of care. Objective - Vital Signs Vital signs: Vital Signs Temp 98.1 F 09/14/24 15:59 Pulse 102 H 09/14/24 15:59 Resp 14 09/14/24 15:59 BP 132/80 09/14/24 15:59 Pulse Ox 96 09/14/24 15:59 FiO2 40 09/08/24 08:18 Intake & Output 09/13/24 09/14/24 09/14/24 18:59 06:59 18:59 Intake Total 300 Balance 300 Weight 89.5 kg 89.5 kg Intake: Oral 300 Other: Voiding Method Diaper Diaper Diaper # Voids 1 2 1 # Bowel Movements 1 ABP, PAP, CO, CI - Last Documented Arterial Blood Pressure 129/51 - Labs CBC & Chem 7: 09/14/24 06:05 09/14/24 06:05 Labs: Abnormal Lab Results - Last 24 Hours (Table) 09/14/24 09/14/24 Range/Units 06:05 06:05 RBC 3.34 L (4.30-5.90) m/uL Hgb 9.5 L (13.0-17.5) gm/dL Hct 29.6 L (39.0-53.0) % Neutrophils # 7.9 H (1.3-7.7) k/uL Chloride 109 H (98-107) mmol/L Calcium 8.0 L (8.4-10.2) mg/dL
--- NOTE | 2024-09-14 17:07 | P.PN ---
Subjective Progress Note Date: 09/14/24 Principal diagnosis: Acute hypoxic and hypercapnic respiratory failure secondary to bilateral pneumonia possibly aspiration On 09/07/2024, the patient is being seen for a follow-up. I the patient is known to have Parkinson's disease, quite extensive and the patient has a brain s timulator in place in addition to history of hypertension hyperlipidemia who presented to the emergency department with few days of nausea and emesis and shortness of breath. The patient was also having increased lethargy. In the emergency, the patient was in significant distress and the patient was placed on a BiPAP and a CAT scan of the abdomen and pelvis was obtained that showed bibasilar airspace disease consolidation with air bronchograms and small bilateral pleural effusion. There was also a right inguinal hernia containing loop of small bowel and possible partial small bowel obstruction. Normal caliber colon and mild fecal retention. Was also mild right-sided hydronephrosis and questionable obstruction at the level of the ureteropelvic junction. NG tube was inserted and there was a total of 1 L of fecal like material content evacuated. Subsequently, the patient went respiratory failure, while in the emergency, the patient was intubated and placed on a mechanical ventilator on 09/01/2024. For now, the patient remains intubated on the mechanical ventilator. This morning, the patient remains on assist-control mode rate of 24, tidal volume of 500, FiO2 40% with a PEEP of 5. Blood gases are still pending from this morning. The chest x-ray from today is showing a nerve stimulator over the left anterior chest area and some limited hazy bilateral pulmonary infiltrates especially on the right. The sputum sample collected on 09/01/2024 was consistent with Richelle and the patient remains on IV Zosyn. The patient has been off sedation for several days and unfortunately, the neurologic response has been suboptimal as the patient remains encephalopathic. CAT scan o f the brain was done on 09/04/2024 that showed no acute abnormalities and the patient was seen by neurology. A lumbar puncture has not been done. The patient remains on vital high-protein at rate of 75 cc an hour for nutritional support. IV fluids KVO. General surgical services on the case for the partial small bowel obstruction with right inguinal hernia and recommendations were conservative management for partial small bowel obstruction He is off propofol for 72 hours. EEG is to be done this morning. On 09/08/2024, the patient is being seen for a follow-up. Much more awake compared to yesterday. Following simple commands. Has an adequate cough. Noted the patient has been off sedation for the past 96 hours. This morning, the patient is on assist-control mode of mechanical ventilation at rate of 16, tidal volume of 500, FiO2 of 40% with a PEEP of 5. Blood gas showed a pH of 7.45 with a pCO2 of 43 and pO2 of 93. Hemodynamically stable. Cardiac rhythm is sinus. The patient continues to receive vital high-protein for enteral feeding and nutritional support. The patient is having diarrhea and has a fecal management system in place. Otherwise, no other significant events overnight. Blood work from today shows a white cell count of 16 with a hemoglobin 10.5 and platelet count of 162. Sodium is at 144, BUN 66 with a creatinine of 1.1. Chest x-ray was reviewed and it shows adequate positioning of the orotracheal tube. The patient continues to have some bibasilar atelectatic changes and small effusion in the left lung base, overall, unchanged compared to yesterday's chest x-ray. EEG was consistent with moderate degree of encephalopathy and no seizure activity. On 09/09/2024, the patient is extubated and is currently on 5 L of oxygen nasal cannula. Weak cough. No signs of any respiratory distress. Chest x-ray showing patchy bibasilar pulm infiltrates/atelectasis. Neurologically, arousable, sluggish in his response, extremely weak, rigid, has some tremors and overall evaluation is consistent with his history of Parkinson's disease. Seems to be in a low mood state. He does communicate however is very sluggish and slow in his responses. The patient was given a dose of Lasix yesterday. Fluid balance is -3 L over the past 24 hours. Electrolytes from today showed a sodium level of 147, potassium of 4.3, bicarb of 31 with a BUN of 15 and creatinine 1.1. WBC count at 18.3 with a hemoglobin of 11.7. The patient remains on IV Zosyn and the patient is also on Diflucan. He has a brain stimulator and he remains on Sinemet. Rest of the medications remain unchanged. He was extubated on 09/08/2024. On 09/10/2024, the patient is being seen for a follow-up. The patient is still very much lethargic, weak, has a weak cough and has a poor ability to swallow. He is arousable, he follows simple commands. He has a very flat affect. Overall respiratory status is stable and the patient remains on oxygen 2 L/min nasal cannula. No interval worsening shortness of breath. Chest x-ray findings shows limited infiltration of the lung base bilaterally. Remains on half-normal saline at rate of 75 cc an hour. Remains on Zosyn and Diflucan. Fluid balance is -1.4 L over the past 24 hours. The white cell count is 15 with a hemoglobin 10.7 and platelet count of 207. BUN 36 with a creatinine of 1.1 and a sodium levels at 144 and a potassium level is at 4.0. I have made recommendations for a PEG tube insertion as I do not see this patient able to swallow in the immediate future. Overall respiratory status is stable. Hemodynamically stable and the patient is on no pressors. The patient remains extubated and currently on 2 L of oxygen by nasal cannula. Patient was extubated on 09/08/2024. On 09/11/2024, the patient is being seen for a follow-up. Neurologically, the level of consciousness is fluctuating. At times, the patient is noted to be more alert than others. The patient's brain stimulator has been activated again. I am still concerned about his ability to meet his caloric requirements. The patient passed a swallow evaluation. However, he does not want to eat at this point. As such, his oral intake remains quite minimal. He remains on half-normal saline at rate of 75 cc an hour. The white cell count of 13 with a heme of 10.9 and a platelet count of 193. Sodium is at 144 with a potassium level of 450 with a bicarb of 25 with a BUN of 25 and a creatinine of 0.95. Remains on DuoNeb nebulized treatments [id number]. Remains on Sinemet. Remains on IV Zosyn. NovoLog sliding scale coverage. Remains on Diflucan. Remains on Lipitor 20 mg p.o. daily Trueman 25 mg p.o. daily. Afebrile for now. No focal neurological deficit. Profound weakness in all 4 extremities. 09/12/2024, the patient is being seen for a follow-up. The patient was moved out of the intensive care unit yesterday. The patient seems to be a slightly more alert and communicating. He is currently on room air oxygen. Oral intake remains poor. Remains on IV Zosyn. White cell count 11 with a hemoglobin 9.9 and a platelet count of 229. No other significant events overnight. Extensively debilitated due to his chronic parkinsonism and dementia. On 09/13/2024, the patient remains essentially unchanged. He is communicating. Oral intake remains quite diminished. Respiratory status is stable and the patient is currently on 2 L of oxygen by nasal cannula with a pulse ox of 97%. CAT scan of the head and cervical spine was done yesterday and showed no acute intracranial process. No cervical spine abnormalities. No mass effect. No infarcts. Labs from today show a white cell count of 12 with a hemoglobin 10 and a platelet count of 252. BUN is 18 with a creatinine of 0.9 and sodium levels at 139. Seen today on 09/14/2024, patient is nonverbal, he is not in any distress on 2 L nasal cannula, patient has relatively diminished breath sounds at the bases, no rhonchi no wheezes, labs were reviewed, WBC count is 9.6 hemoglobin 9.5 electrolytes are normal renal profile is normal his last chest x-ray was 09/10/24 showed mostly persistent patchy bibasilar infiltrates and atelectasis Objective - Vital Signs Vital signs: Vital Signs Temp 98.1 F 09/14/24 15:59 Pulse 102 H 09/14/24 15:59 Resp 14 09/14/24 15:59 BP 132/80 09/14/24 15:59 Pulse Ox 96 09/14/24 15:59 FiO2 40 09/08/24 08:18 Intake & Output 09/13/24 09/14/24 09/14/24 18:59 06:59 18:59 Intake Total 300 Balance 300 Weight 89.5 kg 89.5 kg Intake: Oral 300 Other: Voiding Method Diaper Diaper Diaper # Voids 1 2 1 # Bowel Movements 1 ABP, PAP, CO, CI - Last Documented Arterial Blood Pressure 129/51 - Exam GENERAL: Revealed a 63-year-old white male, nonverbal, in no distress, on 2 L nasal cannula HEENT: Pupils are round and equally reacting to light. EOMI. No scleral icterus. No conjunctival pallor. Normocephalic, atraumatic. No pharyngeal erythema. No thyromegaly. CARDIOVASCULAR: Distant S1-S2, no S3 gallop, normal with no murmur PULMONARY: Diminished breath sound bilaterally no rhonchi no wheezes ABDOMEN: Soft, obese, nontender, nondistended, normoactive bowel sounds. No palpable organomegaly. MUSCULOSKELETAL: No joint swelling or deformity. EXTREMITIES: No cyanosis, clubbing, edematous and extremely weak, bilateral upper and lower extremities 2+ pitting edema NEUROLOGICAL: Patient seems to be rigid, has parkinsonian features otherwise negative and he is nonverbal. SKIN: No rashes. no petechiae. - Labs CBC & Chem 7: 09/14/24 06:05 09/14/24 06:05 Labs: Abnormal Lab Results - Last 24 Hours (Table) 09/14/24 09/14/24 Range/Units 06:05 06:05 RBC 3.34 L (4.30-5.90) m/uL Hgb 9.5 L (13.0-17.5) gm/dL Hct 29.6 L (39.0-53.0) % Neutrophils # 7.9 H (1.3-7.7) k/uL Chloride 109 H (98-107) mmol/L Calcium 8.0 L (8.4-10.2) mg/dL Assessment and Plan Assessment: Impression: Acute hypoxic and hypercapnic respiratory failure Acute aspiration pneumonia Acute kidney injury, resolved Acute right-sided hydro hydronephrosis no intervention was felt to be necessary by urology Benign essential hypertension Parkinson's disease Hyperchloremic hypernatremia Recommendation: Continue antibiotics/Zosyn Continue oxygen and titrate accordingly Continue incentive spirometry Patient will eventually need placement/senior living placement Will continue to follow Time with Patient: Less than 30
[2024-09-14 20:27] LABS: Glucose,Whole Blood 96 mg/dL (70-110)
--- NOTE | 2024-09-14 21:27 | P.PN ---
Subjective Progress Note Date: 09/14/24 Patient evaluated today in the intensive care unit remains on the mechanical ventilator. Repeat chest x-ray today shows persistent multifocal acute infiltrate. Patient remains on a course of IV Zosyn with concern for aspiration pneumonia. Patient has been off sedation for over 48 hours now without impro vement in his mentation neurology was consulted for the same. EEG has been ordered. Additionally neurology had recommended infectious disease consultation secondary to the elevated white blood cell count currently today to 17.8. His renal function has improved. He continues on IV hydrocortisone. 09/06/2024 Patient evaluated in follow-up in the intensive care unit. Chest x-ray shows persistent bilateral multifocal infiltrates. White blood cell count today 23.3, potassium 3.3, BUN of 65, creatinine 1.14. Patient is currently being weaned off the IV solucortef. He has had multiple episodes of loose stools and C. difficile will be checked. He remains off sedation is slightly more responsive today currently with no plans for lumbar puncture but will be going for an EEG tomorrow. 09/07/2024 Patient is seen in follow-up today continues to be in the ICU with neurology following scheduled for EEG. Patient is currently sitting up remains on mechanical ventilation off sedation and is following some commands for me on exam. Awaiting further neurological examination. FiO2 is currently 40% with a PEEP of 5. Nephrology following as well as kidney functions are improving with a creatinine of 1.09, potassium is 3.5 and sodium slightly elevated at 146. Continue with tube feeds and free water flushes and will follow-up with repeat labs. Overall prognosis is guarded at this time. Continue with antibiotics as well. Infectious diseases following. 09/08/2024 Patient seen in follow-up this morning and recently just extubated approximately 30 minutes prior to exam. Patient is continued on 5 L via nasal cannula and will wean as tolerated. Patient currently n.p.o. and tube feeds are on hold and awaiting follow-up speech eval to assess swallow. Patient continues to have copious amounts of diarrhea and C. difficile testing was negative. Will add anti-diarrheal agents and monitor for improvements. Consider Questran once diet is slightly more advanced. Patient with extensive weakness will need PT/OT therapy evaluation. Continue IV antibiotics with infectious disease following. White count remains elevated and patient is afebrile. 09/09/2024 Patient is seen in follow-up today maintained on 4 to 5 L via nasal cannula maintaining oxygen saturations. Diet has been advanced and recommend to continue with aspiration precautions. Patient is continued on antibiotics with infectious disease following. White count minimally trending down and patient is afebrile. Patient with significant weakness needs PT/OT therapy and will need ECF on discharge. Patient continues with a fecal management system having multiple episodes of loose stool and C. difficile testing was negative. Imodium added as needed. 09/10/2024 Patient continues in the ICU on 4 L via nasal cannula. Patient is tolerating diet thus far although strongly recommend aspiration precautions. Patient is significantly weak including swallow and upper and lower extremities. Patient is working with physical therapy and will need extensive therapy on discharge. Patient to be evaluated by PT/OT with social work following working on possible discharge planning to ECF. Patient continues to have significant diarrhea maintained on fecal management system and C. difficile testing has been negative. Patient will continue on antibiotics and will discuss further with infectious disease regarding initiating Questran. 09/11/2024 Patient is seen in follow-up in the ICU awaiting a 3 S. overflow bed currently maintained on 4 L. Patient is scheduled to undergo reevaluation with speech and modified barium as patient has no appetite, not eating very well and extremely weak not tolerating much intake. Neurology following as well and brain stimulator being turned on per family. Patient continues on antibiotics with infectious disease following and is maintained on Questran and fecal management system has been removed. Per patient he continues to have abdominal discomfort and loose stools but is improving. Patient is extremely lethargic although does answer and follow simple commands on exam. Unable to tolerate much commands with upper and lower extremities as they are significantly weak. Recommend PT/OT therapy daily. Overall prognosis is guarded at this time. 09/12/2024 Patient is evaluated today in follow up on the [address] [place] [address] unit has been transferred out of the ICU. Continues on 4L of oxygen via nasal cannula. Patient underwent barium swallow and speech therapy follow up has been started on pureed diet with strict aspirations precautions and 1:1 supervision. Indwelling catheter remains in place. Patient having waxing and waning mentation episodes where he is starting off and requires frequent reorientation. He does have hand graps but is unable to hold arms up against gravity. Labs today reveals white blood cell count 11.2, hgb 9.9, sodium 140, potassium 3.7, BUN 19, creatinine 0.90. 09/13/2024 Patient evaluated in follow up on the [address] [place] [address] unit. Had cervical and brain CT last night with no acute intracranial process. Has stimulator leads within the bilateral basal ganglia. There is no acute osseous abnormality of the cervical spine. Degenerative uncovertebral joint hypertrophy contributing to mild cervical spine foraminal stenosis. White blood cell count 12.8, hgb 10.5, BUN 18, creatinine 0.99. Magnesium 1.7. 09/14/2024 Patient is evaluated today in follow-up in the medical floor. Patient continues to have waxing and waning mentation although today he is alert x 2 able to tell me his name and date of . White blood cell count is normalized today at 9.6 hemoglobin remained stable at 9.5. Renal function and electrolytes are within normal limits. Patient continues to make improvements in diet has been upgraded to dysphagia level 2 ground diet continues with strict aspiration precautions and one-to-one supervision. Indwelling Davenport catheter remains in place. Patient continues on IV Zosyn. Local wound care in place to the deep tissue injury of the coccyx sacrum. Discharge planning in progress for [facility] versus [facility]. Review of systems: Constitutional: reports of fatigue, no fever, or chills Cardiovascular: No reports of chest pain or palpitations Respiratory: No reports of worsening shortness of breath, weak cough GI: No reports of nausea, no vomiting, or diarrhea, reports to not really wantin g to eat and no appetite : No reports of dysuria or retention, has indwelling Davenport catheter Neurovascular: reports of continued weakness All medications have been reviewed Physical exam: GENERAL: This is a 63-year-old male who is lethargic although arousable recently extubated 09/08/2024, currently on 2-4 L via nasal cannula and off sedation, sitting up following some commands, elderly appearing, well-developed, obese HEENT: Pupils are round and equally reacting to light. EOMI. No scleral icterus. No conjunctival pallor. Normocephalic, atraumatic. No pharyngeal erythema. No thyromegaly. CARDIOVASCULAR: S1 and S2 muffled PULMONARY: Diminished breath sounds bilaterally with some coarse rhonchi and faint crackles noted ABDOMEN: Soft, obese, nontender, nondistended, normoactive bowel sounds. No palpable organomegaly. MUSCULOSKELETAL: No joint swelling or deformity. EXTREMITIES: No cyanosis, clubbing, edematous and extremely weak, bilateral upper and lower extremities 2+ pitting edema NEUROLOGICAL: Gross neurological examination did not reveal any focal deficits. Diffusely weak SKIN: No rashes. no petechiae. Pale Assessment: Acute hypoxic respiratory failure secondary to bilateral lower lobe pneumonia, likely aspiration requiring intubation and mechanical ventilation, status post successful extubation 09/08/2024, currently maintained on 2 L via nasal cannula Sepsis with septic shock secondary to above, resolved Altered mental status, multifactorial, likely secondary to metabolic encephalopathy with concerns of septic encephalopathy from aspiration pneumonia per neurology partial small bowel obstruction and right inguinal hernia with loops of small bowel, improved, having multiple bowel movements, improved and started on diet Acute kidney injury, acute tubular necrosis secondary to sepsis and hypotension, improving History of solitary left kidney with marked hydronephrosis of the right, evaluated by urology and appears chronic Leukocytosis could be steroid induced vs infection. Trending down History of Parkinson disease History of dementia Deep tissue injury of the coccyx area, present on admission Stage III pressure ulcers on left and right buttock, hospital-acquired Severe protein calorie malnutrition History of brain stimulator, being turned back on per neurology 09/10/2024 Obesity with a BMI of 30.1 GI prophylaxis DVT prophylaxis Full code Plan: Patient has been transferred out of the ICU. Patient waxing waning on mentation and alertness although does respond to questions and commands appropriately, unable to perform much as patient has significant upper and lower extremity swelling along with weakness. Diet has been upgraded to ground dysphagia 2 with 1:1 supervision and strict aspiration precautions with head of the bed up 45 degrees at all times. Not much of an appetite and is not meeting caloric needs. General surgery following and discussing possible PEG tube although family does not want this. Patient is still full code and this needs to be discussed in detail Patient was continued on mechanical ventilation and successfully extubated 09/08/2024, currently maintained on 2 L via nasal cannula. Will encourage incentive spirometer use and wean FiO2 as tolerated. Patient is having difficulties as he has extreme upper and lower extremity weakness and unable to hold the spirometer Neurology following and EEG was abnormal with encephalopathy with no epileptiform discharges noted, brain stimulator being turned back on by family per neurology ID following and continued on zosyn Urology team consulted for his right hydronephrosis following along. No plans for surgical intervention at this time and most likely chronic. Highly recommend continued aspiration precautions and head of the bed elevated 30 to 45 degrees at all times and supervision with meals. Repeat labs in the AM Overall prognosis guarded at this time Will discuss further with case management/social work regarding discharge planning and will need evaluation by PT/OT therapy Again, patient remains full code and this needs to be discussed in detail with family as overall prognosis is extremely poor and guarded at this time [facility] The impression and plan of care has been dictated by Rocío Vasquez, Nurse Practitioner as directed. Dr. Frank MD I have performed a history and physical examination and medical decision making of this patient, discussed the same with the dictator, and agree with the dictators assessment and plan as written, documented as a scribe. Based on total visit time, I have performed more than 50% of this visit. Objective - Vital Signs Vital signs: Vital Signs Temp 98.1 F 09/14/24 19:40 Pulse 100 09/14/24 19:40 Resp 28 H 09/14/24 19:40 BP 129/78 09/14/24 19:40 Pulse Ox 98 09/14/24 19:40 FiO2 40 09/08/24 08:18 Intake & Output 09/14/24 09/14/24 09/15/24 06:59 18:59 06:59 Intake Total 10 Balance 10 Weight 89.5 kg 89.5 kg Intake: IV 10 Invasive Line 6 10 Other: Voiding Method Diaper Diaper # Voids 2 2 ABP, PAP, CO, CI - Last Documented Arterial Blood Pressure 129/51 - Labs CBC & Chem 7: 09/14/24 06:05 09/14/24 06:05 Labs: Abnormal Lab Results - Last 24 Hours (Table) 09/14/24 09/14/24 Range/Units 06:05 06:05 RBC 3.34 L (4.30-5.90) m/uL Hgb 9.5 L (13.0-17.5) gm/dL Hct 29.6 L (39.0-53.0) % Neutrophils # 7.9 H (1.3-7.7) k/uL Chloride 109 H (98-107) mmol/L Calcium 8.0 L (8.4-10.2) mg/dL Assessment and Plan Time with Patient: Less than 30
[2024-09-15 06:07] LABS: Glucose,Whole Blood 101 mg/dL (70-110)
[2024-09-15 11:16] LABS: Glucose,Whole Blood 89 mg/dL (70-110)
--- NOTE | 2024-09-15 14:12 | P.PN ---
Subjective Progress Note Date: 09/15/24 Principal diagnosis: Acute hypoxic and hypercapnic respiratory failure secondary to bilateral pneumonia possibly aspiration On 09/07/2024, the patient is being seen for a follow-up. I the patient is known to have Parkinson's disease, quite extensive and the patient has a brain s timulator in place in addition to history of hypertension hyperlipidemia who presented to the emergency department with few days of nausea and emesis and shortness of breath. The patient was also having increased lethargy. In the emergency, the patient was in significant distress and the patient was placed on a BiPAP and a CAT scan of the abdomen and pelvis was obtained that showed bibasilar airspace disease consolidation with air bronchograms and small bilateral pleural effusion. There was also a right inguinal hernia containing loop of small bowel and possible partial small bowel obstruction. Normal caliber colon and mild fecal retention. Was also mild right-sided hydronephrosis and questionable obstruction at the level of the ureteropelvic junction. NG tube was inserted and there was a total of 1 L of fecal like material content evacuated. Subsequently, the patient went respiratory failure, while in the emergency, the patient was intubated and placed on a mechanical ventilator on 09/01/2024. For now, the patient remains intubated on the mechanical ventilator. This morning, the patient remains on assist-control mode rate of 24, tidal volume of 500, FiO2 40% with a PEEP of 5. Blood gases are still pending from this morning. The chest x-ray from today is showing a nerve stimulator over the left anterior chest area and some limited hazy bilateral pulmonary infiltrates especially on the right. The sputum sample collected on 09/01/2024 was consistent with Richelle and the patient remains on IV Zosyn. The patient has been off sedation for several days and unfortunately, the neurologic response has been suboptimal as the patient remains encephalopathic. CAT scan o f the brain was done on 09/04/2024 that showed no acute abnormalities and the patient was seen by neurology. A lumbar puncture has not been done. The patient remains on vital high-protein at rate of 75 cc an hour for nutritional support. IV fluids KVO. General surgical services on the case for the partial small bowel obstruction with right inguinal hernia and recommendations were conservative management for partial small bowel obstruction He is off propofol for 72 hours. EEG is to be done this morning. On 09/08/2024, the patient is being seen for a follow-up. Much more awake compared to yesterday. Following simple commands. Has an adequate cough. Noted the patient has been off sedation for the past 96 hours. This morning, the patient is on assist-control mode of mechanical ventilation at rate of 16, tidal volume of 500, FiO2 of 40% with a PEEP of 5. Blood gas showed a pH of 7.45 with a pCO2 of 43 and pO2 of 93. Hemodynamically stable. Cardiac rhythm is sinus. The patient continues to receive vital high-protein for enteral feeding and nutritional support. The patient is having diarrhea and has a fecal management system in place. Otherwise, no other significant events overnight. Blood work from today shows a white cell count of 16 with a hemoglobin 10.5 and platelet count of 162. Sodium is at 144, BUN 66 with a creatinine of 1.1. Chest x-ray was reviewed and it shows adequate positioning of the orotracheal tube. The patient continues to have some bibasilar atelectatic changes and small effusion in the left lung base, overall, unchanged compared to yesterday's chest x-ray. EEG was consistent with moderate degree of encephalopathy and no seizure activity. On 09/09/2024, the patient is extubated and is currently on 5 L of oxygen nasal cannula. Weak cough. No signs of any respiratory distress. Chest x-ray showing patchy bibasilar pulm infiltrates/atelectasis. Neurologically, arousable, sluggish in his response, extremely weak, rigid, has some tremors and overall evaluation is consistent with his history of Parkinson's disease. Seems to be in a low mood state. He does communicate however is very sluggish and slow in his responses. The patient was given a dose of Lasix yesterday. Fluid balance is -3 L over the past 24 hours. Electrolytes from today showed a sodium level of 147, potassium of 4.3, bicarb of 31 with a BUN of 15 and creatinine 1.1. WBC count at 18.3 with a hemoglobin of 11.7. The patient remains on IV Zosyn and the patient is also on Diflucan. He has a brain stimulator and he remains on Sinemet. Rest of the medications remain unchanged. He was extubated on 09/08/2024. On 09/10/2024, the patient is being seen for a follow-up. The patient is still very much lethargic, weak, has a weak cough and has a poor ability to swallow. He is arousable, he follows simple commands. He has a very flat affect. Overall respiratory status is stable and the patient remains on oxygen 2 L/min nasal cannula. No interval worsening shortness of breath. Chest x-ray findings shows limited infiltration of the lung base bilaterally. Remains on half-normal saline at rate of 75 cc an hour. Remains on Zosyn and Diflucan. Fluid balance is -1.4 L over the past 24 hours. The white cell count is 15 with a hemoglobin 10.7 and platelet count of 207. BUN 36 with a creatinine of 1.1 and a sodium levels at 144 and a potassium level is at 4.0. I have made recommendations for a PEG tube insertion as I do not see this patient able to swallow in the immediate future. Overall respiratory status is stable. Hemodynamically stable and the patient is on no pressors. The patient remains extubated and currently on 2 L of oxygen by nasal cannula. Patient was extubated on 09/08/2024. On 09/11/2024, the patient is being seen for a follow-up. Neurologically, the level of consciousness is fluctuating. At times, the patient is noted to be more alert than others. The patient's brain stimulator has been activated again. I am still concerned about his ability to meet his caloric requirements. The patient passed a swallow evaluation. However, he does not want to eat at this point. As such, his oral intake remains quite minimal. He remains on half-normal saline at rate of 75 cc an hour. The white cell count of 13 with a heme of 10.9 and a platelet count of 193. Sodium is at 144 with a potassium level of 450 with a bicarb of 25 with a BUN of 25 and a creatinine of 0.95. Remains on DuoNeb nebulized treatments [id number]. Remains on Sinemet. Remains on IV Zosyn. NovoLog sliding scale coverage. Remains on Diflucan. Remains on Lipitor 20 mg p.o. daily Trueman 25 mg p.o. daily. Afebrile for now. No focal neurological deficit. Profound weakness in all 4 extremities. 09/12/2024, the patient is being seen for a follow-up. The patient was moved out of the intensive care unit yesterday. The patient seems to be a slightly more alert and communicating. He is currently on room air oxygen. Oral intake remains poor. Remains on IV Zosyn. White cell count 11 with a hemoglobin 9.9 and a platelet count of 229. No other significant events overnight. Extensively debilitated due to his chronic parkinsonism and dementia. On 09/13/2024, the patient remains essentially unchanged. He is communicating. Oral intake remains quite diminished. Respiratory status is stable and the patient is currently on 2 L of oxygen by nasal cannula with a pulse ox of 97%. CAT scan of the head and cervical spine was done yesterday and showed no acute intracranial process. No cervical spine abnormalities. No mass effect. No infarcts. Labs from today show a white cell count of 12 with a hemoglobin 10 and a platelet count of 252. BUN is 18 with a creatinine of 0.9 and sodium levels at 139. Seen today on 09/14/2024, patient is nonverbal, he is not in any distress on 2 L nasal cannula, patient has relatively diminished breath sounds at the bases, no rhonchi no wheezes, labs were reviewed, WBC count is 9.6 hemoglobin 9.5 electrolytes are normal renal profile is normal his last chest x-ray was 09/10/24 showed mostly persistent patchy bibasilar infiltrates and atelectasis Patient was seen today on , patient is doing well, does not seem to be in any distress. On 2 L nasal cannula with O2 sat of 99% no labs have been done today, reviewed the labs from yesterday, as noted above. Chest x-ray from 5 day s ago showed mostly bibasilar infiltrates/atelectasis patient has been treated for presumptive aspiration pneumonia. Objective - Vital Signs Vital signs: Vital Signs Temp 98.3 F 09/15/24 11:43 Pulse 84 09/15/24 12:25 Resp 14 09/15/24 11:43 BP 131/81 09/15/24 11:43 Pulse Ox 99 09/15/24 11:43 FiO2 40 09/08/24 08:18 Intake & Output 09/14/24 09/15/24 09/15/24 18:59 06:59 18:59 Intake Total 10 240 Output Total 500 200 Balance -490 40 Weight 89.5 kg 89.5 kg Intake: IV 10 Invasive Line 6 10 Oral 240 Output: Urine 500 200 Other: Voiding Method Diaper External Catheter Diaper External Catheter # Voids 2 2 # Bowel Movements 1 ABP, PAP, CO, CI - Last Documented Arterial Blood Pressure 129/51 - Exam GENERAL: Revealed a 63-year-old white male, nonverbal, in no distress, on 2 L nasal cannula HEENT: Pupils are round and equally reacting to light. EOMI. No scleral icterus. No conjunctival pallor. Normocephalic, atraumatic. No pharyngeal erythema. No thyromegaly. CARDIOVASCULAR: Distant S1-S2, no S3 gallop, normal with no murmur PULMONARY: Minimal crackles at the bases no rhonchi no wheezes ABDOMEN: Soft, obese, nontender, nondistended, normoactive bowel sounds. No palpable organomegaly. MUSCULOSKELETAL: No joint swelling or deformity. EXTREMITIES: No cyanosis, clubbing, edematous and extremely weak, bilateral upper and lower extremities 2+ pitting edema NEUROLOGICAL: Patient seems to be rigid, has parkinsonian features otherwise negative and he is nonverbal. SKIN: No rashes. no petechiae. - Labs CBC & Chem 7: 09/14/24 06:05 09/14/24 06:05 Assessment and Plan Assessment: Impression: Acute hypoxic and hypercapnic respiratory failure Acute aspiration pneumonia Acute kidney injury, resolved Acute right-sided hydro hydronephrosis no intervention was felt to be necessary by urology Benign essential hypertension Parkinson's disease Hyperchloremic hypernatremia Recommendation: Continue antibiotics/Zosyn Continue oxygen and titrate accordingly Continue incentive spirometry Consider rehab placement/residential placement Will continue to follow Time with Patient: Less than 30
--- NOTE | 2024-09-15 15:12 | P.PN ---
Subjective Progress Note Date: 09/15/24 SURGICAL PROGRESS NOTE CHIEF COMPLAINT: Aspiration pneumonia HISTORY OF PRESENT ILLNESS: Patient is currently in the cardiac floor. Patient did have diarrhea. Per nursing staff he is eating very small amount of food. Afebrile. PHYSICAL EXAM: VITAL SIGNS: Reviewed. GENERAL: no acute distress ABDOMEN: Soft. nondistended. Nontender. Neuro: Awake. Confused. ASSESSMENT: 1. Partial small bowel obstruction with right inguinal hernia containing small bowel. Small bowel obstruction resolved. 2. Aspiration pneumonia and hypoxia 3. Severe protein calorie malnutrition 4. History of Parkinson's PLAN: -Continue to monitor oral intake -Continue aspiration precautions -Continue to monitor bowel function Physician Certified Pedorthotist note has been reviewed by physician. Signing provider agrees with the documented findings, assessment, and plan of care. Attestation Patient seen and examined at bedside. Having bowel function. Picking at his food at this time. No significant distress. Continue to monitor bowel function. Monitor oral intake. Shiessie Mendeza, DO Objective - Vital Signs Vital signs: Vital Signs Temp 98.3 F 09/15/24 11:43 Pulse 84 09/15/24 12:25 Resp 14 09/15/24 11:43 BP 131/81 09/15/24 11:43 Pulse Ox 99 09/15/24 11:43 FiO2 40 09/08/24 08:18 Intake & Output 09/14/24 09/15/24 09/15/24 18:59 06:59 18:59 Intake Total 10 240 Output Total 500 200 Balance -490 40 Weight 89.5 kg 89.5 kg Intake: IV 10 Invasive Line 6 10 Oral 240 Output: Urine 500 200 Other: Voiding Method Diaper External Catheter Diaper External Catheter # Voids 2 2 # Bowel Movements 1 ABP, PAP, CO, CI - Last Documented Arterial Blood Pressure 129/51 - Labs CBC & Chem 7: 09/14/24 06:05 09/14/24 06:05
--- NOTE | 2024-09-15 15:20 | P.PN ---
Subjective Progress Note Date: 09/14/24 Principal diagnosis: Reason for follow-up is leukocytosis/aspiration pneumonia Patient is a 63-year-old male with a past medical history significant for hypertension presenting to the hospital for evaluation of nausea vomiting and increased work of breathing, CT of abdominal pelvis did shows evidence of bibasilar consolidation with air bronchogram and the patient had fever concerning for aspiration pneumonia, he did have elevated white count prompted this consultation. On today's evaluation that is 09/14/2023, patient has been afebrile, patient is breathing comfortably and is currently on 2 L nasal cannula oxygen, patient denies having any significant cough no chest pain, patient denies nausea vomiting or diarrhea and no abdominal pain. Patient did have white count of 9.6 creatinine 1.0 blood urine culture have been negative Objective - Vital Signs Vital signs: Vital Signs Temp 98.1 F 09/14/24 11:15 Pulse 88 09/14/24 12:18 Resp 14 09/14/24 11:15 BP 122/71 09/14/24 11:15 Pulse Ox 95 09/14/24 11:15 FiO2 40 09/08/24 08:18 Intake & Output 09/13/24 09/14/24 09/14/24 18:59 06:59 18:59 Intake Total 300 Balance 300 Weight 89.5 kg Intake: Oral 300 Other: Voiding Method Diaper Diaper Diaper # Voids 1 2 # Bowel Movements 1 ABP, PAP, CO, CI - Last Documented Arterial Blood Pressure 129/51 - Exam GENERAL DESCRIPTION: An elderly male lying in bed no distress RESPIRATORY SYSTEM: Unlabored breathing , decreased breath sounds at bases HEART: S1 S2 regular rate and rhythm , ABDOMEN: Soft , no tenderness EXTREMITIES: No edema feet - Labs CBC & Chem 7: 09/14/24 06:05 09/14/24 06:05 Labs: Abnormal Lab Results - Last 24 Hours (Table) 09/14/24 09/14/24 Range/Units 06:05 06:05 RBC 3.34 L (4.30-5.90) m/uL Hgb 9.5 L (13.0-17.5) gm/dL Hct 29.6 L (39.0-53.0) % Neutrophils # 7.9 H (1.3-7.7) k/uL Chloride 109 H (98-107) mmol/L Calcium 8.0 L (8.4-10.2) mg/dL Assessment and Plan (1) Leukocytosis Current Visit: Yes Status: Acute Code(s): D72.829 - ELEVATED WHITE BLOOD C ELL COUNT, UNSPECIFIED SNOMED Code(s): 518969930 (2) Aspiration pneumonia Current Visit: Yes Status: Acute Code(s): J69.0 - PNEUMONITIS DUE TO INHALATION OF FOOD AND VOMIT SNOMED Code(s): 759172445 Plan: 1patient with initial presentation to hospital with nausea and vomiting patient also have a fever on admission that has resolved as of 09/01/[address] abdominal pelvis did not show any obstruction but evidence of bibasilar consolidation concerning for possible aspiration pneumonia sputum has been candidal because patient did have elevated white count could be related to his pneumonia possible aspiration etiology versus steroids that has been discontinued however did have worsening of his white count question of oropharyngeal candidiasis as the patient did have positive sputum with Richelle 2-patient stool for C. difficile negative patient currently on Questran as needed for symptomatic relief of his diarrhea 3- patient is afebrile and the patient white count is has normalized we will co ntinue with the Zosyn and Diflucan monitor clinical course closely Dictation was produced using [employer] dictation software. please excuse any grammatical, word or spelling errors. Time with Patient: Less than 30
--- NOTE | 2024-09-15 15:21 | P.PN ---
Subjective Progress Note Date: 09/22/24 Principal diagnosis: Reason for follow-up is leukocytosis/aspiration pneumonia Patient is a 63-year-old male with a past medical history significant for hypertension presenting to the hospital for evaluation of nausea vomiting and increased work of breathing, CT of abdominal pelvis did shows evidence of bibasilar consolidation with air bronchogram and the patient had fever concerning for aspiration pneumonia, he did have elevated white count prompted this consultation. On today's evaluation that is 09/15/2023, Patient is afebrile this morning patient denies any chest pain occasional cough no nausea no vomiting no abdominal pain no diarrhea has been reported. No new lab has been obtained today last chest x-ray with patchy bibasilar acute infiltrate Objective - Vital Signs Vital signs: Vital Signs Temp 98.3 F 09/15/24 11:43 Pulse 84 09/15/24 12:25 Resp 14 09/15/24 11:43 BP 131/81 09/15/24 11:43 Pulse Ox 99 09/15/24 11:43 FiO2 40 09/08/24 08:18 Intake & Output 09/14/24 09/15/24 09/15/24 18:59 06:59 18:59 Intake Total 10 240 Output Total 500 200 Balance -490 40 Weight 89.5 kg 89.5 kg Intake: IV 10 Invasive Line 6 10 Oral 240 Output: Urine 500 200 Other: Voiding Method Diaper External Catheter Diaper External Catheter # Voids 2 2 # Bowel Movements 1 ABP, PAP, CO, CI - Last Documented Arterial Blood Pressure 129/51 - Exam GENERAL DESCRIPTION: An elderly male lying in bed no distress RESPIRATORY SYSTEM: Unlabored breathing , decreased breath sounds at bases HEART: S1 S2 regular rate and rhythm , ABDOMEN: Soft , no tenderness EXTREMITIES: No edema feet - Labs CBC & Chem 7: 09/14/24 06:05 09/14/24 06:05 Assessment and Plan (1) Leukocytosis Current Visit: Yes Status: Acute Code(s): D72.829 - ELEVATED WHITE BLOOD CELL COUNT, UNSPECIFIED SNOMED Code(s): 653113928 (2) Aspiration pneumonia Current Visit: Yes Status: Acute Code(s): J69.0 - PNEUMONITIS DUE TO INHALATION OF FOOD AND VOMIT SNOMED Code(s): 937170168 Plan: 1patient with initial presentation to hospital with nausea and vomiting patient also have a fever on admission that has resolved as of 09/01/[address] abdominal pelvis did not show any obstruction but evidence of bibasilar consolidation concerning for possible aspiration pneumonia sputum has been candidal because patient did have elevated white count could be related to his pneumonia possible aspiration etiology versus steroids that has been discontinued however did have worsening of his white count question of oropharyngeal candidiasis as the patient did have positive sputum with Richelle 2-patient stool for C. difficile negative patient currently on Questran as needed for symptomatic relief of his diarrhea 3- patient is afebrile and the patient white count is has normalized we will continue with the Diflucan however discontinue Zosyn will give a short course of oral Augmentin Dictation was produced using [employer] dictation software. please excuse any grammatical, word or spelling errors. Time with Patient: Less than 30
--- NOTE | 2024-09-15 15:43 | P.PN ---
Subjective Progress Note Date: 09/15/24 Patient evaluated today in the intensive care unit remains on the mechanical ventilator. Repeat chest x-ray today shows persistent multifocal acute infiltrate. Patient remains on a course of IV Zosyn with concern for aspiration pneumonia. Patient has been off sedation for over 48 hours now without impro vement in his mentation neurology was consulted for the same. EEG has been ordered. Additionally neurology had recommended infectious disease consultation secondary to the elevated white blood cell count currently today to 17.8. His renal function has improved. He continues on IV hydrocortisone. 09/06/2024 Patient evaluated in follow-up in the intensive care unit. Chest x-ray shows persistent bilateral multifocal infiltrates. White blood cell count today 23.3, potassium 3.3, BUN of 65, creatinine 1.14. Patient is currently being weaned off the IV solucortef. He has had multiple episodes of loose stools and C. difficile will be checked. He remains off sedation is slightly more responsive today currently with no plans for lumbar puncture but will be going for an EEG tomorrow. 09/07/2024 Patient is seen in follow-up today continues to be in the ICU with neurology following scheduled for EEG. Patient is currently sitting up remains on mechanical ventilation off sedation and is following some commands for me on exam. Awaiting further neurological examination. FiO2 is currently 40% with a PEEP of 5. Nephrology following as well as kidney functions are improving with a creatinine of 1.09, potassium is 3.5 and sodium slightly elevated at 146. Continue with tube feeds and free water flushes and will follow-up with repeat labs. Overall prognosis is guarded at this time. Continue with antibiotics as well. Infectious diseases following. 09/08/2024 Patient seen in follow-up this morning and recently just extubated approximately 30 minutes prior to exam. Patient is continued on 5 L via nasal cannula and will wean as tolerated. Patient currently n.p.o. and tube feeds are on hold and awaiting follow-up speech eval to assess swallow. Patient continues to have copious amounts of diarrhea and C. difficile testing was negative. Will add anti-diarrheal agents and monitor for improvements. Consider Questran once diet is slightly more advanced. Patient with extensive weakness will need PT/OT therapy evaluation. Continue IV antibiotics with infectious disease following. White count remains elevated and patient is afebrile. 09/09/2024 Patient is seen in follow-up today maintained on 4 to 5 L via nasal cannula maintaining oxygen saturations. Diet has been advanced and recommend to continue with aspiration precautions. Patient is continued on antibiotics with infectious disease following. White count minimally trending down and patient is afebrile. Patient with significant weakness needs PT/OT therapy and will need ECF on discharge. Patient continues with a fecal management system having multiple episodes of loose stool and C. difficile testing was negative. Imodium added as needed. 09/10/2024 Patient continues in the ICU on 4 L via nasal cannula. Patient is tolerating diet thus far although strongly recommend aspiration precautions. Patient is significantly weak including swallow and upper and lower extremities. Patient is working with physical therapy and will need extensive therapy on discharge. Patient to be evaluated by PT/OT with social work following working on possible discharge planning to ECF. Patient continues to have significant diarrhea maintained on fecal management system and C. difficile testing has been negative. Patient will continue on antibiotics and will discuss further with infectious disease regarding initiating Questran. 09/11/2024 Patient is seen in follow-up in the ICU awaiting a 3 S. overflow bed currently maintained on 4 L. Patient is scheduled to undergo reevaluation with speech and modified barium as patient has no appetite, not eating very well and extremely weak not tolerating much intake. Neurology following as well and brain stimulator being turned on per family. Patient continues on antibiotics with infectious disease following and is maintained on Questran and fecal management system has been removed. Per patient he continues to have abdominal discomfort and loose stools but is improving. Patient is extremely lethargic although does answer and follow simple commands on exam. Unable to tolerate much commands with upper and lower extremities as they are significantly weak. Recommend PT/OT therapy daily. Overall prognosis is guarded at this time. 09/12/2024 Patient is evaluated today in follow up on the [address] [place] [address] unit has been transferred out of the ICU. Continues on 4L of oxygen via nasal cannula. Patient underwent barium swallow and speech therapy follow up has been started on pureed diet with strict aspirations precautions and 1:1 supervision. Indwelling catheter remains in place. Patient having waxing and waning mentation episodes where he is starting off and requires frequent reorientation. He does have hand graps but is unable to hold arms up against gravity. Labs today reveals white blood cell count 11.2, hgb 9.9, sodium 140, potassium 3.7, BUN 19, creatinine 0.90. 09/13/2024 Patient evaluated in follow up on the [address] [place] [address] unit. Had cervical and brain CT last night with no acute intracranial process. Has stimulator leads within the bilateral basal ganglia. There is no acute osseous abnormality of the cervical spine. Degenerative uncovertebral joint hypertrophy contributing to mild cervical spine foraminal stenosis. White blood cell count 12.8, hgb 10.5, BUN 18, creatinine 0.99. Magnesium 1.7. 09/14/2024 Patient is evaluated today in follow-up in the medical floor. Patient continues to have waxing and waning mentation although today he is alert x 2 able to tell me his name and date of . White blood cell count is normalized today at 9.6 hemoglobin remained stable at 9.5. Renal function and electrolytes are within normal limits. Patient continues to make improvements in diet has been upgraded to dysphagia level 2 ground diet continues with strict aspiration precautions and one-to-one supervision. Indwelling Davenport catheter remains in place. Patient continues on IV Zosyn. Local wound care in place to the deep tissue injury of the coccyx sacrum. Discharge planning in progress for [facility] versus [facility]. 09/15/2024 Patient is evaluated today in follow up on the medical floor. Resting c omfortably in bed. No acute complaints. Review of systems: Constitutional: reports of fatigue, no fever, or chills Cardiovascular: No reports of chest pain or palpitations Respiratory: No reports of worsening shortness of breath, weak cough GI: No reports of nausea, no vomiting, or diarrhea, reports to not really wanting to eat and no appetite : No reports of dysuria or retention, has indwelling Davenport catheter Neurovascular: reports of continued weakness All medications have been reviewed Physical exam: GENERAL: This is a 63-year-old male who is lethargic although arousable recently extubated 09/08/2024, currently on 2-4 L via nasal cannula and off sedation, sitting up following some commands, elderly appearing, well-developed, obese HEENT: Pupils are round and equally reacting to light. EOMI. No scleral icterus. No conjunctival pallor. Normocephalic, atraumatic. No pharyngeal erythema. No thyromegaly. CARDIOVASCULAR: S1 and S2 muffled PULMONARY: Diminished breath sounds bilaterally with some coarse rhonchi and faint crackles noted ABDOMEN: Soft, obese, nontender, nondistended, normoactive bowel sounds. No palpable organomegaly. MUSCULOSKELETAL: No joint swelling or deformity. EXTREMITIES: No cyanosis, clubbing, edematous and extremely weak, bilateral upper and lower extremities 2+ pitting edema NEUROLOGICAL: Gross neurological examination did not reveal any focal deficits. Diffusely weak SKIN: No rashes. no petechiae. Pale Assessment: Acute hypoxic respiratory failure secondary to bilateral lower lobe pneumonia, likely aspiration requiring intubation and mechanical ventilation, status post successful extubation 09/08/2024, currently maintained on 2 L via nasal cannula Sepsis with septic shock secondary to above, resolved Altered mental status, multifactorial, likely secondary to metabolic encephalopathy with concerns of septic encephalopathy from aspiration pneumonia per neurology partial small bowel obstruction and right inguinal hernia with loops of small bowel, improved, having multiple bowel movements, improved and started on diet Acute kidney injury, acute tubular necrosis secondary to sepsis and hypotension, improving History of solitary left kidney with marked hydronephrosis of the right, evaluated by urology and appears chronic Leukocytosis could be steroid induced vs infection. Trending down History of Parkinson disease History of dementia Deep tissue injury of the coccyx area, present on admission Stage III pressure ulcers on left and right buttock, hospital-acquired Severe protein calorie malnutrition History of brain stimulator, being turned back on per neurology 09/10/2024 Obesity with a BMI of 30.1 GI prophylaxis DVT prophylaxis Full code Plan: Patient has been transferred out of the ICU. Patient waxing waning on mentation and alertness although does respond to questions and commands appropriately, unable to perform much as patient has significant upper and lower extremity swelling along with weakness. Diet has been upgraded to ground dysphagia 2 with 1:1 supervision and strict aspiration precautions with head of the bed up 45 degrees at all times. Not much of an appetite and is not meeting caloric needs. General surgery following and discussing possible PEG tube although family does not want this. Patient is still full code and this needs to be discussed in detail Patient was continued on mechanical ventilation and successfully extubated 09/08/2024, currently maintained on 2 L via nasal cannula. Will encourage incentive spirometer use and wean FiO2 as tolerated. Patient is having difficulties as he has extreme upper and lower extremity weakness and unable to hold the spirometer Neurology following and EEG was abnormal with encephalopathy with no epileptiform discharges noted, brain stimulator being turned back on by family per neurology ID following and patient has been transitioned to oral augmentin and remains on oral diflucan Urology team consulted for his right hydronephrosis following along. No plans for surgical intervention at this time and most likely chronic. Highly recommend continued aspiration precautions and head of the bed elevated 30 to 45 degrees at all times and supervision with meals. Repeat labs in the AM Overall prognosis guarded at this time Will discuss further with case management/social work regarding discharge planning and will need evaluation by PT/OT therapy Again, patient remains full code and this needs to be discussed in detail with family as overall prognosis is extremely poor and guarded at this time Discharge planning in progress to [facility] The impression and plan of care has been dictated by Rocío Vasquez, Nurse Practitioner as directed. Dr. Frank MD I have performed a history and physical examination and medical decision making of this patient, discussed the same with the dictator, and agree with the d ictators assessment and plan as written, documented as a scribe. Based on total visit time, I have performed more than 50% of this visit. Objective - Vital Signs Vital signs: Vital Signs Temp 98.3 F 09/15/24 11:43 Pulse 84 09/15/24 12:25 Resp 14 09/15/24 11:43 BP 131/81 09/15/24 11:43 Pulse Ox 99 09/15/24 11:43 FiO2 40 09/08/24 08:18 Intake & Output 09/14/24 09/15/24 09/15/24 18:59 06:59 18:59 Intake Total 10 240 Output Total 500 200 Balance -490 40 Weight 89.5 kg 89.5 kg Intake: IV 10 Invasive Line 6 10 Oral 240 Output: Urine 500 200 Other: Voiding Method Diaper External Catheter Diaper External Catheter # Voids 2 2 # Bowel Movements 1 ABP, PAP, CO, CI - Last Documented Arterial Blood Pressure 129/51 - Labs CBC & Chem 7: 09/14/24 06:05 09/14/24 06:05 Assessment and Plan Time with Patient: Less than 30
--- NOTE | 2024-09-15 15:55 | P.PN ---
Subjective Progress Note Date: 09/15/24 I am following up with the patient and per the nurse she was notified by family members she is doing better today. But is still not back to baseline but there is improvement. Objective - Vital Signs Vital signs: Vital Signs Temp 98.3 F 09/15/24 11:43 Pulse 84 09/15/24 12:25 Resp 14 09/15/24 11:43 BP 131/81 09/15/24 11:43 Pulse Ox 99 09/15/24 11:43 FiO2 40 09/08/24 08:18 Intake & Output 09/14/24 09/15/24 09/15/24 18:59 06:59 18:59 Intake Total 10 240 Output Total 500 200 Balance -490 40 Weight 89.5 kg 89.5 kg Intake: IV 10 Invasive Line 6 10 Oral 240 Output: Urine 500 200 Other: Voiding Method Diaper External Catheter Diaper External Catheter # Voids 2 2 # Bowel Movements 1 ABP, PAP, CO, CI - Last Documented Arterial Blood Pressure 129/51 - Exam General Lying in bed and does not appear in acute distress Neuro is limited. Seems more responsive today compared to yesterday. He is oriented to self and he stated he is in the hospital. He has nonsensical speech at times. He follows few simple commands. He was able to stoop lift leg above gravity and had some movement in the right leg but the left leg is more than the right leg. In the upper extremities he moved upper extremities more distally than proximally - Labs CBC & Chem 7: 09/14/24 06:05 09/14/24 06:05 Assessment and Plan Assessment: Altered mental status, likely due to metabolic encephalopathy. Reasons multifactorial as mentioned below. Parkinsonism, not improving. Continues to be very weak, uncertain if patient has developed some critical illness myopathy. Status post extubation 09/08/2024 Septic encephalopathy from aspiration pneumonia, metabolic encephalopathy. Worsening parkinsonism CT of the head is unremarkable for any acute or subacute process. Acute acute kidney injury--resolved Fever and leukocytosis and it was felt patient likely has aspiration pneumonia and its likely due to his vomiting episode Slight transaminitis Acute hypoxemic and hypercapnic respiratory failure secondary to aspiration pneumonia the patient is intubated on the ventilator History of Parkinson disease status post Deep brain stimulator (DBS) History of hypertension Hyperlipidemia Plan: Patient continues to be lethargic, does answer limited amount. His parkinsonism has improved with less rigidity since increasing the dose of Sinemet, and resuming his DBS. He just moving his hands and feet but not proximally. No obvious focality. Dr. Barker spoke to patient's niece, and they were planning to decrease Sinemet to 1 tablet twice daily. We will decrease Sinemet to 1 tablet twice daily. Also the family has turned back on the DBS. It is not very clear if DBS is working appropriately. She will try to contact the [employer] medical field representative check on the status of the DBS to make sure it is working. CT of the head and neck: CT of the head reported as no acute intracranial process. For the CT cervical spine she reported as no acute osseous abnormality cervical spine. Degenerative on close vertebral joint hypertrophy contributing to mild cervical spine foraminal stenosis EEG was performed, which was abnormal due to background slowing of moderate degree, suggestive of generalized cerebral dysfunction as can be seen with toxic metabolic encephalopathy or due to diffuse structural brain abnormality. No focal, lateralized or epileptiform activity was seen. Infection diseases is on board. I spoke with the ID more than a week ago when I was on service and they did not feel this was meningeal encephalitis and no need for lumbar puncture. Patient has been afebrile since September 02, 2024. PT, OT, speech therapy. I think the patient will benefit from inpatient rehab. Will defer the rest of the medical management to primary and other specialist Upon discharge recommend the patient to follow-up with a neurologist as an outpatient within 2 to 3 weeks. Time with Patient: Less than 30
[2024-09-15 16:19] LABS: Glucose,Whole Blood 108 mg/dL (70-110)
[2024-09-15 19:56] LABS: Glucose,Whole Blood 103 mg/dL (70-110)
[2024-09-15] MEDS: AMOXIC-POT CLAV 875-125MG 1 EACH TAB PO SCH (20:10)
[2024-09-16 05:56] LABS: Glucose,Whole Blood 88 mg/dL (70-110)
[2024-09-16 11:57] LABS: Glucose,Whole Blood 117 mg/dL (70-110)
[2024-09-16 12:32] VITALS: BP 135/84; TEMP 98.2
--- NOTE | 2024-09-16 14:06 | P.DS ---
Providers Date of admission: 08/31/24 21:43 Attending physician: Xiomara Manjarrez Consults: 08/31/24 21:36 Consult Physician Urgent Consulting Provider: Jose A Neal Consult Reason/Comments: bipap resp failure, aspiration pneumonia Do you want consulting provider notified?: Yes Consult Physician Urgent Consulting Provider: Ja Medel Consult Reason/Comments: yahir Do you want consulting provider notified?: Yes 09/01/24 01:05 Consult Physician Urgent Consulting Provider: Sergei Acevedo Consult Reason/Comments: partial SBO Do you want consulting provider notified?: Yes 09/01/24 01:47 Consult Physician Urgent Consulting Provider: Arsenio Crane Consult Reason/Comments: hydronephrosis Do you want consulting provider notified?: Yes, Notify in am 09/05/24 10:25 Consult Physician Routine Consulting Provider: Erwin Neal Consult Reason/Comments: Decreased neurological function for 48 hours after being off sedation. Do you want consulting provider notified?: Yes, Notify in am 09/05/24 11:30 Consult Physician Urgent Consulting Provider: Alexandr Welch Consult Reason/Comments: leukocytosis Do you want consulting provider notified?: Yes Primary care physician: [facility] Course: Final Diagnosis Acute hypoxic respiratory failure secondary to bilateral lower lobe pneumonia, likely aspiration requiring intubation and mechanical ventilation, status post successful extubation 09/08/2024, currently maintained on 2 L via nasal cannula Sepsis with septic shock secondary to above, resolved Altered mental status, multifactorial, likely secondary to metabolic encephalopathy with concerns of septic encephalopathy from aspiration pneumonia per neurology partial small bowel obstruction and right inguinal hernia with loops of small bowel, improved, having multiple bowel movements, improved and started on diet Acute kidney injury, acute tubular necrosis secondary to sepsis and hypotension, improving History of solitary left kidney with marked hydronephrosis of the right, evaluated by urology and appears chronic Leukocytosis could be steroid induced vs infection. Trending down History of Parkinson disease History of dementia Deep tissue injury of the coccyx area, present on admission Stage III pressure ulcers on left and right buttock, hospital-acquired Severe protein calorie malnutrition History of brain stimulator, being turned back on per neurology 09/10/2024 Obesity with a BMI of 30.1 Discharge Disposition Patient is stable for discharge to subacute rehabilitation center at [facility]. Deep brain stimulator has been turned on by family. He is on sinemet twice daily. Per family they have been weaning him off this. He is advised to see neurologist Dr. Kolb in 3 weeks on discharge. Continue oral augmentin and oral diflucan for the next 7 days. Follow up with ID on discharge. Follow up with pulmonology as well. Continue ground level 2 dysphagia diet. Patient would benefit from continued evaluation and recommendations from speech therapist. Patient to repeat blood work 2 to 3 days. Hospital Course This is a pleasant 63 years old male who presents initially last night for flulike symptoms and found to be hypoxic. Also there was concerns of GI bleed. On admission he was in respiratory distress and he has to be intubated and placed on mechanical ventilation. Patient was admitted to the ICU. History is obtained from the medical record and patients niece. Patient was initially hypotensive require vasopressor support. There was concern for aspiration pneumonia he was started on IV zosyn. Troponin x 2 are negative at 0.03 and 0.02. Urine analysis is currently concentrated sample on admit. Chest x-ray showing bibasilar infiltrates which is also seen on the CT of the abdomen and pelvis. Patient has marked right hydronephrosis with apparent obstruction at the right renal pelvis, no obvious cause. This is likely chronic. Urology evaluated the patient. Surgery was consulted with concerns for partial small bowel obstruction with right inguinal hernia containing small bowel. The small bowel obstruction resolved with conservative management. He was extubated on 09/08/2024 was able to be moved out of the ICU. He is requiring oxygen at 2L nasal cannula now adequate saturations of 98%. Patient does have an underlying history of Parkinson's disorder however has had significant altered mentation and family felt this was due to him getting too much Sinemet. He has now been decreased down to Sinemet twice daily and he is awake alert and able to speak in small phrases. He is quite fatigued and is not moving his upper or lower extremities very well. Neurology is concerned that he may have some underlying critical illness myopathy. This point patient is hemodynamically stable. Most recent blood work reveals a white blood cell count 9.6 hemoglobin 9.5, sodium 139 potassium 3.7, BUN of 15 creatinine of 1.00 magnesium 1.9. He did develop a stage II pressure injury which is being treated with zinc barrier paste. He will benefit greatly from the subacute rehabilitation and after discussion with family they are okay with patient discharging today. He is on a ground level 2 dysphagia diet and would benefit from further speech therapy on discharge as well. Please see medication reconciliation for a list of current medications. Thank you for allowing us to participate in the care of this patient. The impression and plan of care has been dictated by Rocío Vasquez, Nurse Practitioner as directed. Dr. Frank MD I have performed a history and physical examination and medical decision making of this patient, discussed the same with the dictator, and agree with the dictators assessment and plan as written, documented as a scribe. Based on total visit time, I have performed more than 50% of this visit. Patient Condition at Discharge: Stable Plan - Discharge Summary New Discharge Prescriptions: New Amoxic-Pot Clav 875-125Mg [Augmentin 875-125] 1 each PO Q12HR 7 Days #14 tab Ipratropium-Albuterol Nebulize [Duoneb 0.5 mg-3 mg/3 ml Soln] 3 ml INHALATION RT-QID each INSULIN ASPART (NovoLOG) [NovoLOG (formulary)] 0 unit SQ ACHS each Cholestyramine (with Sugar) [Questran Packet] 4 gm PO BID@1000,1800 3 Days #6 packet Acetaminophen Tab [Tylenol] 650 mg PO Q6HR PRN tab PRN Reason: Mild Pain Or Fever > 100.5 Fluconazole [Diflucan] 100 mg PO DAILY #7 tab Heparin Sodium,Porcine (1 ml) [Heparin Sodium] 5,000 unit SQ Q12HR each Loperamide [Imodium] 2 mg PO QID PRN cap PRN Reason: Diarrhea Carbidopa-Levodopa 25-100 mg [Sinemet 25-100 mg] 1 each PO BID@0600,1800 tab Continue atenoloL [Tenormin] 25 mg PO DAILY@0600 Atorvastatin [Lipitor] 20 mg PO HS@1800 Discontinued Carbidopa-Levodopa 25-100 mg [Sinemet 25-100] 1 tab PO TID@0600,1400,1800 Discharge Medication List Atorvastatin [Lipitor] 20 mg PO HS@1800 08/31/24 [History] atenoloL [Tenormin] 25 mg PO DAILY@0600 08/31/24 [History] Acetaminophen Tab [Tylenol] 650 mg PO Q6HR PRN tab 09/16/24 [Rx] Amoxic-Pot Clav 875-125Mg [Augmentin 875-125] 1 each PO Q12HR 7 Days #14 tab 09/16/24 [Rx] Carbidopa-Levodopa 25-100 mg [Sinemet 25-100 mg] 1 each PO BID@0600,1800 tab 09/16/24 [Rx] Cholestyramine (with Sugar) [Questran Packet] 4 gm PO BID@1000,1800 3 Days #6 packet 09/16/24 [Rx] Fluconazole [Diflucan] 100 mg PO DAILY #7 tab 09/16/24 [Rx] Heparin Sodium,Porcine (1 ml) [Heparin Sodium] 5,000 unit SQ Q12HR each 09/16/24 [Rx] INSULIN ASPART (NovoLOG) [NovoLOG (formulary)] 0 unit SQ ACHS each 09/16/24 [Rx] Ipratropium-Albuterol Nebulize [Duoneb 0.5 mg-3 mg/3 ml Soln] 3 ml INHALATION RT-QID each 09/16/24 [Rx] Loperamide [Imodium] 2 mg PO QID PRN cap 09/16/24 [Rx] Follow up Appointment(s)/Referral(s): Tiki Patton MD [Primary Care Provider] - 1-2 days Kristian Kolb DO [REFERRING] - 3 Weeks (Neurologist ) Ambulatory/Diagnostic Orders: Basic Metabolic Panel [LAB.AMB] Time Frame: 3 Days, Location: None Selected Complete Blood Count w/diff [LAB.AMB] Location: None Selected Activity/Diet/Wound Care/Special Instructions: Continue to apply zinc barrier paste twice daily to the pressure injury on sacrum/coccyx. Patient would benefit from pressure offloading mattress and frequent turning and repositioning Follow up with neurology on discharge in 3 weeks. Patient sees Kristian Montejo out of [facility].
--- NOTE | 2024-09-16 14:17 | P.PN ---
Subjective Progress Note Date: 09/16/24 SURGICAL PROGRESS NOTE CHIEF COMPLAINT: Aspiration pneumonia HISTORY OF PRESENT ILLNESS: Patient is currently in the cardiac floor. Patient eating a small amount of his food. Patient has been having bowel movements. Afebrile. Medicine service is planning on discharge today. PHYSICAL EXAM: VITAL SIGNS: Reviewed. GENERAL: no acute distress ABDOMEN: Soft. nondistended. Nontender. Neuro: Awake. ASSESSMENT: 1. Partial small bowel obstruction with right inguinal hernia containing small bowel. Small bowel obstruction resolved. 2. Aspiration pneumonia and hypoxia 3. Severe protein calorie malnutrition 4. History of Parkinson's PLAN: -Continue aspiration precautions -Patient can be discharge from surgical standpoint Physician Painter Spray note has been reviewed by physician. Signing provider agrees with the documented findings, assessment, and plan of care. Attestation Patient seen and examined at bedside. Presented with chief complaint of pneumonia. Partial small bowel obstruction appears to be resolving. Continue aspiration precautions. Patient eating small amount of food and I did recommend appropriate nutrition for the patient. Recommend protein supplementation. Patient is surgically stable for discharge. Leslie Wilcox DO Objective - Vital Signs Vital signs: Vital Signs Temp 98.2 F 09/16/24 12:30 Pulse 100 09/16/24 12:30 Resp 16 09/16/24 12:30 BP 135/84 09/16/24 12:30 Pulse Ox 98 09/16/24 12:30 FiO2 40 09/08/24 08:18 Intake & Output 09/15/24 09/16/24 09/16/24 18:59 06:59 18:59 Intake Total 240 170 Output Total 600 650 Balance -360 170 -650 Weight 87 kg Intake: IV 170 0.9 kvo 160 Invasive Line 7 10 Oral 240 Output: Urine 600 650 Other: Voiding Method Diaper External Catheter External Catheter # Bowel Movements 1 1 ABP, PAP, CO, CI - Last Documented Arterial Blood Pressure 129/51 - Labs CBC & Chem 7: 09/14/24 06:05 09/14/24 06:05 Labs: Abnormal Lab Results - Last 24 Hours (Table) 09/16/24 Range/Units 11:54 POC Glucose (mg/dL) 117 H (70-110) mg/dL
--- NOTE | 2024-09-16 16:16 | P.PN ---
Subjective Progress Note Date: 09/16/24 On 09/07/2024, the patient is being seen for a follow-up. I the patient is known to have Parkinson's disease, quite extensive and the patient has a brain stimulator in place in addition to history of hypertension hyperlipidemia who presented to the emergency department with few days of nausea and emesis and shortness of breath. The patient was also having increased lethargy. In the emergency, the patient was in significant distress and the patient was placed on a BiPAP and a CAT scan of the abdomen and pelvis was obtained that showed bibasilar airspace disease consolidation with air bronchograms and small bilateral pleural effusion. There was also a right inguinal hernia containing loop of small bowel and possible partial small bowel obstruction. Normal caliber colon and mild fecal retention. Was also mild right-sided hydronephrosis and questionable obstruction at the level of the ureteropelvic junction. NG tube was inserted and there was a total of 1 L of fecal like material content evacuated. Subsequently, the patient went respiratory failure, while in the emergency, the patient was intubated and placed on a mechanical ventilator on 09/01/2024. For now, the patient remains intubated on the mechanical ventilator. This morning, the patient remains on assist-control mode rate of 24, tidal volume of 500, FiO2 40% with a PEEP of 5. Blood gases are still pending from this morning. The chest x-ray from today is showing a nerve stimulator over the left anterior chest area and some limited hazy bilateral pulmonary infiltrates especially on the right. The sputum sample collected on 09/01/2024 was consistent with Richelle and the patient remains on IV Zosyn. The patient has been off sedation for several days and unfortunately, the neurologic response has been suboptimal as the patient remains encephalopathic. CAT scan of the brain was done on 09/04/2024 that showed no acute abnormalities and the patient was seen by neurology. A lumbar puncture has not been done. The abdirashid haji remains on vital high-protein at rate of 75 cc an hour for nutritional support. IV fluids KVO. General surgical services on the case for the partial small bowel obstruction with right inguinal hernia and recommendations were conservative management for partial small bowel obstruction He is off propofol for 72 hours. EEG is to be done this morning. On 09/08/2024, the patient is being seen for a follow-up. Much more awake compared to yesterday. Following simple commands. Has an adequate cough. Noted the patient has been off sedation for the past 96 hours. This morning, the patient is on assist-control mode of mechanical ventilation at rate of 16, tidal volume of 500, FiO2 of 40% with a PEEP of 5. Blood gas showed a pH of 7.45 with a pCO2 of 43 and pO2 of 93. Hemodynamically stable. Cardiac rhythm is sinus. The patient continues to receive vital high-protein for enteral fe eding and nutritional support. The patient is having diarrhea and has a fecal management system in place. Otherwise, no other significant events overnight. Blood work from today shows a white cell count of 16 with a hemoglobin 10.5 and platelet count of 162. Sodium is at 144, BUN 66 with a creatinine of 1.1. Chest x-ray was reviewed and it shows adequate positioning of the orotracheal tube. The patient continues to have some bibasilar atelectatic changes and small effusion in the left lung base, overall, unchanged compared to yesterday's chest x-ray. EEG was consistent with moderate degree of encephalopathy and no seizure activity. On 09/09/2024, the patient is extubated and is currently on 5 L of oxygen nasal cannula. Weak cough. No signs of any respiratory distress. Chest x-ray showing patchy bibasilar pulm infiltrates/atelectasis. Neurologically, arousable, sluggish in his response, extremely weak, rigid, has some tremors and overall evaluation is consistent with his history of Parkinson's disease. Seems to be in a low mood state. He does communicate however is very sluggish and slow in his responses. The patient was given a dose of Lasix yesterday. Fluid balance is -3 L over the past 24 hours. Electrolytes from today showed a sodium level of 147, potassium of 4.3, bicarb of 31 with a BUN of 15 and creatinine 1.1. WBC count at 18.3 with a hemoglobin of 11.7. The patient remains on IV Zosyn and the patient is also on Diflucan. He has a brain stimulator and he remains on Sinemet. Rest of the medications remain unchanged. He was extubated on 09/08/2024. On 09/10/2024, the patient is being seen for a follow-up. The patient is still very much lethargic, weak, has a weak cough and has a poor ability to swallow. He is arousable, he follows simple commands. He has a very flat affect. Overall respiratory status is stable and the patient remains on oxygen 2 L/min nasal cannula. No interval worsening shortness of breath. Chest x-ray findings shows limited infiltration of the lung base bilaterally. Remains on half-normal saline at rate of 75 cc an hour. Remains on Zosyn and Diflucan. Fluid balance is -1.4 L over the past 24 hours. The white cell count is 15 with a hemoglobin 10.7 and platelet count of 207. BUN 36 with a creatinine of 1.1 and a sodium levels at 144 and a potassium level is at 4.0. I have made recommendations for a PEG tube insertion as I do not see this patient able to swallow in the immediate future. Overall respiratory status is stable. Hemodynamically stable and the patient is on no pressors. The patient remains extubated and currently on 2 L of oxygen by nasal cannula. Patient was extubated on 09/08/2024. On 09/11/2024, the patient is being seen for a follow-up. Neurologically, the level of consciousness is fluctuating. At times, the patient is noted to be more alert than others. The patient's brain stimulator has been activated again. I am still concerned about his ability to meet his caloric requirements. The patient passed a swallow evaluation. However, he does not want to eat at this point. As such, his oral intake remains quite minimal. He remains on half-normal saline at rate of 75 cc an hour. The white cell count of 13 with a heme of 10.9 and a platelet count of 193. Sodium is at 144 with a potassium level of 450 with a bicarb of 25 with a BUN of 25 and a creatinine of 0.95. Remains on DuoNeb nebulized treatments [id number]. Remains on Sinemet. Remains on IV Zosyn. NovoLog sliding scale coverage. Remains on Diflucan. Remains on Lipitor 20 mg p.o. daily Trueman 25 mg p.o. daily. Afebrile for now. No focal neurological deficit. Profound weakness in all 4 extremities. 09/12/2024, the patient is being seen for a follow-up. The patient was moved out of the intensive care unit yesterday. The patient seems to be a slightly more alert and communicating. He is currently on room air oxygen. Oral intake remains poor. Remains on IV Zosyn. White cell count 11 with a hemoglobin 9.9 and a platelet count of 229. No other significant events overnight. Extensive ly debilitated due to his chronic parkinsonism and dementia. On 09/13/2024, the patient remains essentially unchanged. He is communicating. Oral intake remains quite diminished. Respiratory status is stable and the patient is currently on 2 L of oxygen by nasal cannula with a pulse ox of 97%. CAT scan of the head and cervical spine was done yesterday and showed no acute intracranial process. No cervical spine abnormalities. No mass effect. No infarcts. Labs from today show a white cell count of 12 with a hemoglobin 10 and a platelet count of 252. BUN is 18 with a creatinine of 0.9 and sodium levels at 139. Seen today on 09/14/2024, patient is nonverbal, he is not in any distress on 2 L nasal cannula, patient has relatively diminished breath sounds at the bases, no rhonchi no wheezes, labs were reviewed, WBC count is 9.6 hemoglobin 9.5 electrolytes are normal renal profile is normal his last chest x-ray was 09/10/24 showed mostly persistent patchy bibasilar infiltrates and atelectasis Patient was seen today on , patient is doing well, does not seem to be in any distress. On 2 L nasal cannula with O2 sat of 99% no labs have been done today, reviewed the labs from yesterday, as noted above. Chest x-ray from 5 days ago showed mostly bibasilar infiltrates/atelectasis patient has been treated for presumptive aspiration pneumonia. The patient is seen today September 16, 2024 in follow-up on the selective care unit. He is currently sitting up in bed. Awake and alert. He is more vocal today. Answering yes/no questions. He is maintaining good O2 saturations in the 90s on 2 L/min per nasal cannula. Urine and blood cultures revealed no growth. Sputum culture with Richelle only. Glucose 117. He is continued on Augmentin. Continued on bronchodilators. Heparin for DVT prophylaxis. Continued on Diflucan. Objective - Vital Signs Vital signs: Vital Signs Temp 98.2 F 09/16/24 12:30 Pulse 74 09/16/24 15:24 Resp 16 09/16/24 12:30 BP 135/84 01/15/25 12:30 Pulse Ox 98 09/16/24 12:30 FiO2 40 09/08/24 08:18 Intake & Output 09/15/24 09/16/24 09/16/24 18:59 06:59 18:59 Intake Total 240 170 Output Total 600 650 Balance -360 170 -650 Weight 87 kg Intake: IV 170 0.9 kvo 160 Invasive Line 7 10 Oral 240 Output: Urine 600 650 Other: Voiding Method Diaper External Catheter External Catheter External Catheter # Bowel Movements 1 1 ABP, PAP, CO, CI - Last Documented Arterial Blood Pressure 129/51 - Exam GENERAL EXAM: Alert, 63-year-old male patient, on 2 L nasal cannula, fairly comfortable in no apparent distress. HEAD: Normocephalic. EYES: Normal reaction of pupils, equal size. NOSE: Clear with pink turbinates. THROAT: No erythema or exudates. NECK: No masses, no JVD. CHEST: No chest wall deformity. LUNGS: Equal air entry with no crackles, wheeze, rhonchi or dullness. CVS: S1 and S2 normal with no audible murmur, regular rhythm. ABDOMEN: No hepatosplenomegaly, normal bowel sounds, no guarding or rigidity. SPINE: No scoliosis or deformity SKIN: No rashes CENTRAL NERVOUS SYSTEM: Parkinsonian features, no focal deficits, tone is normal in all 4 extremities. EXTREMITIES: There is no peripheral edema. No clubbing, no cyanosis. Peripheral pulses are intact. - Labs CBC & Chem 7: 09/14/24 06:05 09/14/24 06:05 Labs: Abnormal Lab Results - Last 24 Hours (Table) 09/16/24 Range/Units 11:54 POC Glucose (mg/dL) 117 H (70-110) mg/dL Assessment and Plan Assessment: Acute hypoxic and hypercapnic respiratory failure improved and on 2 L nasal cannula Acute aspiration pneumonia, currently on Augmentin Acute kidney injury, resolved Acute right-sided hydronephrosis no intervention was felt to be necessary by urology Benign essential hypertension Parkinson's disease Hyperchloremic hypernatremia, improved Plan: The patient was seen and evaluated Labs and medications reviewed Stable and on 2 L nasal cannula More alert and vocal today Plan is for discharge to [facility] today I have personally seen and examined the patient, performed the documentation and the assessment and plan as written. Number of minutes spent on the visit: 10 Dictation was produced using [employer] dictation software. Please excuse any g rammatical, word or spelling errors.
[2024-09-16 16:47] LABS: Glucose,Whole Blood 118 mg/dL (70-110)
[2024-09-16 20:17] LABS: Glucose,Whole Blood 102 mg/dL (70-110)
[2024-09-16 20:50] VITALS: RESP 18
[2024-09-16 20:55] VITALS: PULSE 81
== END 2024-09-16 21:22 | DRG 870 ==
LOC: EC 18:38 → 3SCARD 21:43 → 2SICU 22:37 → 3SCARD 09-11 18:59
PROVIDERS: ADMIT Hospitalist; ATTEND Hospitalist
PROC: 5A09357 Assistance with Respiratory Ventilation, Less than 24 Consecutive Hours, Continuous Positive Airway Pressure (ICD-10-PCS; principal; 2024-08-31)
PROC: 0D9670Z Drainage of Stomach with Drainage Device, Via Natural or Artificial Opening (ICD-10-PCS; 2024-08-31)
PROC: 5A1955Z Respiratory Ventilation, Greater than 96 Consecutive Hours (ICD-10-PCS; 2024-09-01)
PROC: 0BH18EZ Insertion of Endotracheal Airway into Trachea, Via Natural or Artificial Opening Endoscopic (ICD-10-PCS; 2024-09-01)
PROC: 03HY32Z Insertion of Monitoring Device into Upper Artery, Percutaneous Approach (ICD-10-PCS; 2024-09-01)
PROC: 4A133B1 Monitoring of Arterial Pressure, Peripheral, Percutaneous Approach (ICD-10-PCS; 2024-09-01)
PROC: 4A133J1 Monitoring of Arterial Pulse, Peripheral, Percutaneous Approach (ICD-10-PCS; 2024-09-01)
PROC: 02HV33Z Insertion of Infusion Device into Superior Vena Cava, Percutaneous Approach (ICD-10-PCS; 2024-09-01)
PROC: 3E043XZ Introduction of Vasopressor into Central Vein, Percutaneous Approach (ICD-10-PCS; 2024-09-01)
DX: A41.9 Sepsis, unspecified organism (principal); L89.313 Pressure ulcer of right buttock, stage 3; L89.323 Pressure ulcer of left buttock, stage 3; N17.0 Acute kidney failure with tubular necrosis; J96.02 Acute respiratory failure with hypercapnia; R65.21 Severe sepsis with septic shock; J96.01 Acute respiratory failure with hypoxia; E43 Unspecified severe protein-calorie malnutrition; G93.41 Metabolic encephalopathy; J69.0 Pneumonitis due to inhalation of food and vomit; G72.81 Critical illness myopathy; E87.4 Mixed disorder of acid-base balance; K40.30 Unilateral inguinal hernia, with obstruction, without gangrene, not specified as recurrent; E87.0 Hyperosmolality and hypernatremia; F02.82 Dementia in other diseases classified elsewhere, unspecified severity, with psychotic disturbance; N13.2 Hydronephrosis with renal and ureteral calculous obstruction; Q60.0 Renal agenesis, unilateral; E27.40 Unspecified adrenocortical insufficiency; L89.156 Pressure-induced deep tissue damage of sacral region; L89.152 Pressure ulcer of sacral region, stage 2; R13.10 Dysphagia, unspecified; G20.C Parkinsonism, unspecified; I10 Essential (primary) hypertension; Z68.30 Body mass index [BMI] 30.0-30.9, adult; E66.9 Obesity, unspecified; E78.5 Hyperlipidemia, unspecified; K59.00 Constipation, unspecified; D72.828 Other elevated white blood cell count; T38.0X5A Adverse effect of glucocorticoids and synthetic analogues, initial encounter; K31.84 Gastroparesis; M48.02 Spinal stenosis, cervical region; E87.8 Other disorders of electrolyte and fluid balance, not elsewhere classified; E87.6 Hypokalemia; E86.9 Volume depletion, unspecified; I95.89 Other hypotension; Z96.89 Presence of other specified functional implants; Z79.899 Other long term (current) drug therapy; Z87.891 Personal history of nicotine dependence; Z85.828 Personal history of other malignant neoplasm of skin
CPT/HCPCS: 36415; 36600; 70450; 71045; 72125; 74176; 74230; 80048; 80053; 81001; 81003; 82140; 82533; 82607; 82805; 83036; 83605; 83690; 83735; 84132; 84145; 84295; 84443; 84484; 85025; 85027; 85610; 85730; 86850; 86900; 86901; 87040; 87070; 87086; 87205; 87324; 87636; 94002; 94003; 94640; 94660; 94760; 95822; 96361; 96365; 96366; 96375; 99291

== ENCOUNTER 2024-10-17 18:59 | Inpatient (IN) | payer MEDICARE, OTHER ==
[2024-10-17 20:22] LABS: Basophils # (A) 0.1 k/uL (0-0.2); Basophils % (A) 1 %; Eosinophils # (A) 0.2 k/uL (0-0.7); Eosinophils % (A) 2 %; HCT 35.9 % (39.0-53.0); HGB 11.5 gm/dL (13.0-17.5); Hypochromasia Slight; Lymphocytes # (A) 0.9 k/uL (1.0-4.8); Lymphocytes % (A) 9 %; MCH 29.7 pg (25.0-35.0); MCV 92.8 fL (80.0-100.0); Mean Platelet Volume 6.8; Monocytes # (A) 0.9 k/uL (0-1.0); Monocytes % (A) 8 %; Neutrophils # (A) 8.5 k/uL (1.3-7.7); Neutrophils % (A) 79 %; Platelet Count 210 k/uL (150-450); RBC 3.87 m/uL (4.30-5.90); RDW 14.6 % (11.5-15.5); WBC 10.8 k/uL (3.8-10.6)
--- NOTE | 2024-10-17 20:27 | XR ---
EXAMINATION TYPE: XR chest 1V portable DATE OF EXAM: 10/17/2024 8:11 PM COMPARISON: Chest radiographs from CLINICAL INDICATION: Male, 63 years old with history of fever; TECHNIQUE: XR chest 1V portable Frontal view of the chest. FINDINGS: Lungs/Pleura: Airspace opacities project over the spine. There is no evidence of pleural effusion, fo sudha consolidation, or pneumothorax. Pulmonary vascularity: Unremarkable. Heart/mediastinum: Cardiomediastinal silhouette is unremarkable. Electronic device with leads termin ating superiorly. Musculoskeletal: No acute osseous pathology. Degeneration changes of the shoulders. Other findings: None Lines/Tubes: Right-sided PICC line with distal tip at the cavoatrial junction. IMPRESSION: Airspace opacities projecting the spine correlate for pneumonia [facility] Johanna Correia, , 10/17/2024 8:25 PM
[2024-10-17 20:43] LABS: ALT 10 U/L (4-49); AST 26 U/L (17-59); African American GFR (CKD) 17 (>60 ml/min/1.73 sqM); Albumin 3.4 g/dL (3.5-5.0); Alkaline Phosphatase 78 U/L (38-126); Anion Gap 21 mmol/L; Blood Urea Nitrogen 60 mg/dL (9-20); Calcium 9.9 mg/dL (8.4-10.2); Carbon Dioxide 13 mmol/L (22-30); Chloride 117 mmol/L (98-107); Glucose 71 mg/dL (74-99); Non-African American GFR(CKD) 15 (>60 ml/min/1.73 sqM); Potassium 4.5 mmol/L (3.5-5.1); Sodium 151 mmol/L (137-145); Total Bilirubin 0.9 mg/dL (0.2-1.3); Total Protein 6.6 g/dL (6.3-8.2)
[2024-10-17 20:55] LABS: Influenza A Not Detected (Not Detectd); Influenza B Not Detected (Not Detectd); RSV Not Detected (Not Detectd)
[2024-10-17] MEDS ORDERED: NALOXONE 0.4 MG/ML 1 ML VIAL IV PRN (22:35)
--- NOTE | 2024-10-17 22:40 | ED ---
General Adult HPI - General Chief complaint: Upper Respiratory Infection Stated complaint: Altered Mental Time Seen by Provider: 10/17/24 19:08 Source: EMS, RN notes reviewed, old records reviewed Mode of arrival: EMS Limitations: altered mental status - History of Present Illness Initial comments: 63-year-old male presenting for evaluation of diaphoresis, increased confusion from baseline. Patient bedbound with known sacral decubitus ulcer, indwelling Daven[place] catheter. Paramedics report that the patient has been afebrile. History is limited and the patient is not able to contribute. - Related Data Home Medications Medication Instructions Recorded Confirmed Atorvastatin [Lipitor] 20 mg PO HS@2100 08/31/24 09/30/24 atenoloL [Tenormin] 25 mg PO DAILY@0600 08/31/24 09/30/24 Carbidopa-Levodopa 25-100 mg 1 tab PO QID@08,12,17,21 09/30/24 09/30/24 [Sinemet 25-100 mg] Cholestyramine (with Sugar) 4 gm PO BID@0800,1700 09/30/24 09/30/24 [Questran Packet] Ensure Enlive 237 ml PO TID@08,12,17 09/30/24 09/30/24 Heparin Sodium,Porcine (1 ml) 5,000 unit SQ BID@0800,2100 09/30/24 09/30/24 [Heparin Sodium] Ipratropium-Albuterol Nebulize 3 ml INHALATION RT-QID@00,06,12,18 09/30/24 09/30/24 [Duoneb 0.5 mg-3 mg/3 ml Soln] Liquacel 30 ml PO DAILY@0800 09/30/24 09/30/24 Magic Cup 1 can PO DAILY@1200 09/30/24 09/30/24 Magnesium Hydroxide [Milk of 7,200 mg PO DAILY PRN 09/30/24 09/30/24 Magnesia Concentrate] Na Phos,M-B/Na Phos,Di-Ba [Fleet 133 ml RECTAL DAILY PRN 09/30/24 09/30/24 Adult] bisacodyL [Dulcolax] 10 mg RECTAL DAILY PRN 09/30/24 09/30/24 Previous Rx's Medication Instructions Recorded Acetaminophen Tab [Tylenol] 650 mg PO Q6HR PRN tab 09/16/24 Loperamide [Imodium] 2 mg PO QID PRN cap 09/16/24 ALPRAZolam [Xanax] 0.25 mg PO BID PRN 3 Days #6 tab 10/05/24 Cefepime [Maxipime] 2 gm IVPB Q8H #42 each 10/05/24 HYDROcodone/APAP 5-325MG [[place] 1 tab PO Q6H PRN 2 Days #6 tab 10/05/24 5-325] Vancomycin HCl in 5 % Dextrose 1.5 gm IV BID #28 each 10/05/24 [Vancomycin 1.5 Gram/300 ml-D5w] Allergies Allergy/AdvReac Type Severity Reaction Status Date / Time No Known Allergies Allergy Verified 09/30/24 20:47 Review of Systems ROS Statement: Those systems with pertinent positive or pertinent negative responses have been documented in the HPI. ROS Other: All systems not noted in ROS Statement are negative. Past Medical History Past Medical History: Hypertension Additional Past Medical History / Comment(s): parkinsons DNR-10/17/2024 History of Any Multi-Drug Resistant Organisms: None Reported Date of last positivie culture/infection: 09/30/24 MDRO Source:: buttock Past Surgical History: No Surgical Hx Reported Additional Past Surgical History / Comment(s): deep brain stimulator Past Anesthesia/Blood Transfusion Reactions: No Reported Reaction Past Psychological History: No Psychological Hx Reported Smoking Status: Former smoker Past Alcohol Use History: Occasional Past Drug Use History: Marijuana General Exam Limitations: altered mental status General appearance: in no apparent distress, lethargic Head exam: Present: atraumatic, normocephalic ENT exam: Present: mucous membranes dry Respiratory exam: Present: rhonchi, decreased breath sounds Cardiovascular Exam: Present: regular rate, normal rhythm GI/Abdominal exam: Present: soft. Absent: distended, tenderness, guarding Skin exam: Present: warm, dry, intact, pallor Course Vital Signs 10/17/24 19:09 Temperature 98.0 F Pulse Rate 86 Respiratory 18 Rate Blood Pressure 108/61 O2 Sat by Pulse 97 Oximetry Medical Decision Making - Medical Decision Making Was pt. sent in by a medical professional or institution (, PA, [employer], urgent care, hospital, or retirement...) When possible be specific @ -No Did you speak to anyone other than the patient for history (EMS, parent, family, police, friend...)? What history was obtained from this source @ -Paramedics Did you review nursing and triage notes (agree or disagree)? Why? @ -I reviewed and agree with nursing and triage notes Were old charts reviewed (outside hosp., previous admission, EMS record, old EKG, old radiological studies, urgent care reports/EKG's, retirement records)? Report findings @ -No old charts were reviewed Differential Fever: Pneumonia, viral URI, endocarditis, myocarditis, pericarditis, otitis, si nusitis, peritonsillar Abscess, retropharyngeal Abscess, epiglottitis, peritonitis, appendicitis, Gina cystitis, diverticulitis, hepatitis, colitis, UTI, PID, TOA, pyelonephritis, prostatitis, epididymitis, meningitis, encephalitis, pulmonary embolism, CVA, thyroid storm, pancreatitis, adrenal melba is, cavernous sinus thrombosis, this is not meant to be an all-inclusive list. EKG interpreted by me (3pts min.). @ -As above X-rays interpreted by me (1pt min.). @Chest x-ray concerning for developing pneumonia CT interpreted by me (1pt min.). @ -None done U/S interpreted by me (1pt. min.). @ -None done What testing was considered but not performed or refused? (CT, X-rays, U/S, labs)? Why? @ -None What meds were considered but not given or refused? Why? @ -None Did you discuss the management of the patient with other professionals (professionals i.e. , PA, [employer], lab, RT, psych nurse, psychotherapist social worker, ambulatory services representative, teacher, division officer weapons department, porter sample case)? Give summary @EM Was smoking cessation discussed for >3mins.? @ -No Was critical care preformed (if so, how long)? @ -No Were there social determinants of health that impacted care today? How? (Homelessness, low income, unemployed, alcoholism, drug addiction, transportation, low edu. Level, literacy, decrease access to med. care, [facility], rehab)? @ -No Was there de-escalation of care discussed even if they declined (Discuss DNR or withdrawal of care, Hospice)? DNR status @DNR What co-morbidities impacted this encounter? (DM, HTN, Smoking, COPD, CAD, Cancer, CVA, ARF, Chemo, Hep., AIDS, mental health diagnosis, sleep apnea, morbi d obesity)? @ -[Bedbound, decubitus ulcer, indwelling Davenport catheter, Parkinson's disease Was patient admitted / discharged? Hospital course, mention meds given and route, prescriptions, significant lab abnormalities, going to OR and other pertinent info. @63-year-old male presenting with increased confusion and reported diaphoresis. Patient has chest x-ray evidence of developing pneumonia. Patient has a mild leukocytosis, mild anemia, worsening kidney function. Negative viral panel. Patient started on IV fluids and IV antibiotics. Admitted for further evaluation and treatment. Family would like evaluation by hospice for possible de-escalation of care. Undiagnosed new problem with uncertain prognosis? @ -No Drug Therapy requiring intensive monitoring for toxicity (Heparin, Nitro, I nsulin, Cardizem)? @ -No Were any procedures done? @ -No Diagnosis/symptom? @Pneumonia, ELIJAH on CKD Acute, or Chronic, or Acute on Chronic? @ -[Acute Uncomplicated (without systemic symptoms) or Complicated (systemic symptoms)? @ -Default Side effects of treatment? @ -No Exacerbation, Progression, or Severe Exacerbation? @ -No Poses a threat to life or bodily function? How? (Chest pain, USA, MD, pneumonia, PE, COPD, DKA, ARF, appy, cholecystitis, CVA, Diverticulitis, Homicidal, Suicidal, threat to staff... and all critical care pts) @Yes, pneumonia, sepsis - Lab Data Result diagrams: 10/17/24 19:30 10/17/24 19:30 Lab Results 10/17/24 10/17/24 10/17/24 Range/Units 19:30 19:30 19:30 WBC 10.8 H (3.8-10.6) k/uL RBC 3.87 L (4.30-5.90) m/uL Hgb 11.5 L (13.0-17.5) gm/dL Hct 35.9 L (39.0-53.0) % MCV 92.8 (80.0-100.0) fL MCH 29.7 (25.0-35.0) pg MCHC 32.0 (31.0-37.0) g/dL RDW 14.6 (11.5-15.5) % Plt Count 210 (150-450) k/uL MPV 6.8 Neutrophils % 79 % Lymphocytes % 9 % Monocytes % 8 % Eosinophils % 2 % Basophils % 1 % Neutrophils # 8.5 H (1.3-7.7) k/uL Lymphocytes # 0.9 L (1.0-4.8) k/uL Monocytes # 0.9 (0-1.0) k/uL Eosinophils # 0.2 (0-0.7) k/uL Basophils # 0.1 (0-0.2) k/uL Hypochromasia Slight Sodium 151 H (137-145) mmol/L Potassium 4.5 (3.5-5.1) mmol/L Chloride 117 H (98-107) mmol/L Carbon Dioxide 13 L (22-30) mmol/L Anion Gap 21 mmol/L BUN 60 H (9-20) mg/dL Creatinine 3.97 H (0.66-1.25) mg/dL Est GFR (CKD-EPI)AfAm 17 (>60 ml/min/1.73 sqM) Est GFR (CKD-EPI)NonAf 15 (>60 ml/min/1.73 sqM) Glucose 71 L (74-99) mg/dL Plasma Lactic Acid Maciel 0.9 (0.7-2.0) mmol/L Calcium 9.9 (8.4-10.2) mg/dL Total Bilirubin 0.9 (0.2-1.3) mg/dL AST 26 (17-59) U/L ALT 10 (4-49) U/L Alkaline Phosphatase 78 (38-126) U/L Total Protein 6.6 (6.3-8.2) g/dL Albumin 3.4 L (3.5-5.0) g/dL Influenza Type A (PCR) (Not Detectd) Influenza Type B (PCR) (Not Detectd) RSV (PCR) (Not Detectd) SARS-CoV-2 (PCR) (Not Detectd) 10/17/24 Range/Units 19:30 WBC (3.8-10.6) k/uL RBC (4.30-5.90) m/uL Hgb (13.0-17.5) gm/dL Hct (39.0-53.0) % MCV (80.0-100.0) fL MCH (25.0-35.0) pg MCHC (31.0-37.0) g/dL RDW (11.5-15.5) % Plt Count (150-450) k/uL MPV Neutrophils % % Lymphocytes % % Monocytes % % Eosinophils % % Basophils % % Neutrophils # (1.3-7.7) k/uL Lymphocytes # (1.0-4.8) k/uL Monocytes # (0-1.0) k/uL Eosinophils # (0-0.7) k/uL Basophils # (0-0.2) k/uL Hypochromasia Sodium (137-145) mmol/L Potassium (3.5-5.1) mmol/L Chloride (98-107) mmol/L Carbon Dioxide (22-30) mmol/L Anion Gap mmol/L BUN (9-20) mg/dL Creatinine (0.66-1.25) mg/dL Est GFR (CKD-EPI)AfAm (>60 ml/min/1.73 sqM) Est GFR (CKD-EPI)NonAf (>60 ml/min/1.73 sqM) Glucose (74-99) mg/dL Plasma Lactic Acid Maciel (0.7-2.0) mmol/L Calcium (8.4-10.2) mg/dL Total Bilirubin (0.2-1.3) mg/dL AST (17-59) U/L ALT (4-49) U/L Alkaline Phosphatase (38-126) U/L Total Protein (6.3-8.2) g/dL Albumin (3.5-5.0) g/dL Influenza Type A (PCR) Not Detected (Not Detectd) Influenza Type B (PCR) Not Detected (Not Detectd) RSV (PCR) Not Detected (Not Detectd) SARS-CoV-2 (PCR) Not Detected (Not Detectd) Disposition Clinical Impression: Pneumonia Disposition: ADMITTED IP TO THIS HOSP Condition: Stable Is patient prescribed a controlled substance at d/c from ED?: No Time of Disposition: 22:37
[2024-10-17] MEDS: SODIUM CHLORIDE 0.9% 1,000 ML IV SCH (23:11)
[2024-10-17] MEDS: AZITHROMYCIN 500 MG in SODIUM CHLORIDE 0.9% 250 ML IVPB STA (23:12)
[2024-10-18] MEDS: SODIUM CHLORIDE 0.9% 500 ML 500 ML IV ONE (00:30)
[2024-10-18 07:10] LABS: Appearance,Urine Cloudy (Clear); Bacteria,Urine Rare /hpf; Bilirubin,Urine Negative (Negative); Blood,Urine Moderate (Negative); Budding Yeast,Urine Moderate /hpf; Color,Urine Light Yellow; Glucose,Urine (UA) Negative (Negative); Ketones,Urine 1+ (Negative); Leukocyte Esterase,Urine Negative (Negative); Mucus,Urine Rare /hpf; Nitrite,Urine Negative (Negative); PH, Urine 5.5 (5.0-8.0); Protein,Urine 1+ (Negative); RBC,Urine 8 /hpf (0-5); Specific Gravity,Urine 1.014 (1.001-1.035); Urobilinogen,Urine <2.0 mg/dL (<2.0); WBC,Urine 3 /hpf (0-5)
[2024-10-18] MEDS: DEXTROSE 5% IN WATER 1,000 ML IV ONE (09:57)
--- NOTE | 2024-10-18 11:48 | P.HPIM ---
History of Present Illness This is a pleasant 63 years old male on 10/01 who was recently discharged from this facility for pressure ulcer stage II on IV vancomycin and cefepime. Currently he presents from long-term for being diaphoretic for 2 days with pressure ulcers on the buttock. Patient cannot provide information , He does not answer questions. He keeps his eye closed and resists opening them, he has a resting tremor, pill rolling tremor in his right hand, he has stiff both upper and lower extremities. Pupils are equal and reactive to light. He has stage II pressure ulcer with some pinkish discoloration, no purulent discharge He has right arm PICC line, he is on IV daptomycin from long-term started on 10/16 till 10/27 Patient afebrile blood pressure stable WBCs 10.8, hemoglobin 11.5, sodium elevated 151, creatinine 3.9, previously was 1.7 and it was 2, I reviewed the chest x-ray myself .7. Chest x-ray: Airspace opacity projecting the spine correlate for pneumonia per radiologist, I reviewed chest x-ray myself, no significant consolidation, including symmetrical no pleural effusion. Review of Systems Review of systems CONSTITUTIONAL: No fever, no malaise, no fatigue. HEENT: No recent visual problems or hearing problems. Denied any sore throat. CARDIOVASCULAR: No orthopnea, PND, no palpitations, no syncope. PULMONARY: No shortness of breath, no cough, no hemoptysis. GASTROINTESTINAL: No diarrhea, no nausea, no vomiting, no abdominal pain. Normoactive bowel sounds. NEUROLOGICAL: No headaches, no weakness, no numbness. HEMATOLOGICAL: Denies any bleeding or petechiae. GENITOURINARY: Denies any burning micturition, frequency, or urgency. MUSCULOSKELETAL/RHEUMATOLOGICAL: Denies any joint pain, swelling, or any muscle pain. ENDOCRINE: Denies any polyuria or polydipsia. ROS unobtainable: due to mental status Past Medical History Past Medical History: Hypertension Additional Past Medical History / Comment(s): parkinsons DNR-10/17/2024 History of Any Multi-Drug Resistant Organisms: MRSA Date of last positivie culture/infection: 09/30/24 MDRO Source:: buttock Past Surgical History: No Surgical Hx Reported Additional Past Surgical History / Comment(s): deep brain stimulator Past Anesthesia/Blood Transfusion Reactions: No Reported Reaction Past Psychological History: No Psychological Hx Reported Smoking Status: Former smoker Past Alcohol Use History: Occasional Past Drug Use History: Marijuana - Past Family History Father Family Medical History: Unable to Obtain Mother Family Medical History: Unable to Obtain Medications and Allergies Home Medications Medication Instructions Recorded Confirmed Type Atorvastatin [Lipitor] 20 mg PO HS@2100 08/31/24 09/30/24 History atenoloL [Tenormin] 25 mg PO DAILY@0600 08/31/24 09/30/24 History Acetaminophen Tab [Tylenol] 650 mg PO Q6HR PRN tab 09/16/24 09/30/24 Rx Loperamide [Imodium] 2 mg PO QID PRN cap 09/16/24 09/30/24 Rx Carbidopa-Levodopa 25-100 mg 1 tab PO QID@08,12,17,09/30/24 09/30/24 History [Sinemet 25-100 mg] Cholestyramine (with Sugar) 4 gm PO BID@0800,1700 09/30/24 09/30/24 History [Questran Packet] Ensure Enlive 237 ml PO TID@08,12,17 09/30/24 09/30/24 History Heparin Sodium,Porcine (1 ml) 5,000 unit SQ BID@0800,2100 09/30/24 09/30/24 History [Heparin Sodium] Ipratropium-Albuterol Nebulize 3 ml INHALATION RT-QID@00,06,12,18 09/30/24 09/30/24 History [Duoneb 0.5 mg-3 mg/3 ml Soln] Liquacel 30 ml PO DAILY@0800 09/30/24 09/30/24 History Magic Cup 1 can PO DAILY@1200 09/30/24 09/30/24 History Magnesium Hydroxide [Milk of 7,200 mg PO DAILY PRN 09/30/24 09/30/24 History Magnesia Concentrate] Na Phos,M-B/Na Phos,Di-Ba [Fleet 133 ml RECTAL DAILY PRN 09/30/24 09/30/24 History Adult] bisacodyL [Dulcolax] 10 mg RECTAL DAILY PRN 09/30/24 09/30/24 History ALPRAZolam [Xanax] 0.25 mg PO BID PRN 3 Days #6 tab 10/05/24 Rx Cefepime [Maxipime] 2 gm IVPB Q8H #42 each 10/05/24 Rx HYDROcodone/APAP 5-325MG [[place] 1 tab PO Q6H PRN 2 Days #6 tab 10/05/24 Rx 5-325] Vancomycin HCl in 5 % Dextrose 1.5 gm IV BID #28 each 10/05/24 Rx [Vancomycin 1.5 Gram/300 ml-D5w] Allergies Allergy/AdvReac Type Severity Reaction Status Date / Time No Known Allergies Allergy Verified 09/30/24 20:47 Physical Exam Vitals: Vital Signs Temp Pulse Pulse Resp BP BP Pulse Ox 10/18/24 08:00 99.4 F 86 18 163/79 97 10/18/24 06:50 16 145/74 93 L 10/18/24 04:58 99.1 F 10/18/24 04:35 20 116/64 95 10/18/24 02:24 18 142/71 95 10/18/24 01:09 99.1 F 91 22 99/76 96 10/18/24 00:25 92 16 135/67 96 10/17/24 19:09 98.0 F 86 18 108/61 97 Intake and Output 10/17/24 10/18/24 10/18/24 22:59 06:59 14:59 Output Total 200 Balance -200 Output: Urine 200 Other: Weight 78.925 kg -GENERAL: The patient is confused and stiff all over his body, looks like related to his Parkinson disease process other HEENT: Pupils are round and equally reacting to light. EOMI. No scleral icterus. No conjunctival pallor. Normocephalic, atraumatic. No pharyngeal erythema. No thyromegaly. CARDIOVASCULAR: S1 and S2 present. No murmurs, rubs, or gallops. PULMONARY: Chest is clear to auscultation, no wheezing , no crackles. ABDOMEN: Soft, nontender, nondistended, normoactive bowel sounds. No palpable organomegaly. MUSCULOSKELETAL: No joint swelling or deformity. EXTREMITIES: No cyanosis, clubbing, or pedal edema. NEUROLOGICAL: Confused, keep eye closed, resists opening eyes , he has resting tremor of the right hand, he follows some certain commands like squeezing the hands SKIN: No rashes. no petechiae. Results CBC & Chem 7: 02/15/25 19:30 10/17/24 19:30 Labs: Abnormal Lab Results - Last 24 Hours (Table) 10/17/24 10/17/24 10/18/24 Range/Units 19:30 19:30 06:00 WBC 10.8 H (3.8-10.6) k/uL RBC 3.87 L (4.30-5.90) m/uL Hgb 11.5 L (13.0-17.5) gm/dL Hct 35.9 L (39.0-53.0) % Neutrophils # 8.5 H (1.3-7.7) k/uL Lymphocytes # 0.9 L (1.0-4.8) k/uL Sodium 151 H (137-145) mmol/L Chloride 117 H (98-107) mmol/L Carbon Dioxide 13 L (22-30) mmol/L BUN 60 H (9-20) mg/dL Creatinine 3.97 H (0.66-1.25) mg/dL Glucose 71 L (74-99) mg/dL Albumin 3.4 L (3.5-5.0) g/dL Urine Protein 1+ H (Negative) Urine Ketones 1+ H (Negative) Urine Blood Moderate H (Negative) Urine RBC 8 H (0-5) /hpf Urine Bacteria Rare H (None) /hpf Urine Mucus Rare H (None) /hpf Urine Yeast (Budding) Moderate H (None) /hpf Assessment and Plan Assessment: Stage II sacral pressure ulcer with suspected infection secondary to MRSA on IV daptomycin as an outpatient with PICC line in the right upper extremity Metabolic/toxic encephalopathy Heparin natremia Acute kidney injury Parkinson disease, patient has resting tremor in his right hand and generalized stiffness, he is not taking his medication Congenital UPJ with nonfunctioning right kidney and chronic right hydronephrosis, no need for any intervention per urologist recently evaluated hi m during last admission Hypertension Hyperlipidemia Plan: Consult infectious disease team Continue with daptomycin per ID team Order stat CT of the brain Resume home medication Change fluid to D5 no water at 75 mL/h Consult nephrology team Labs and medication were reviewed.. Continue same treatment. Continue with symptomatic treatment. Resume home medication. Monitor labs and vitals. DVT and GI prophylaxis. Further recommendations as per clinical course of the patient DVT prophylaxis: Subcutaneous heparin GI Prophylaxis: Pepcid Prognosis is guarded
[2024-10-18] MEDS: LORazepam 2 MG/ML INJ IV STA (11:56)
[2024-10-18] MEDS: CARBIDOPA-LEVODOPA 25-100 MG 1 EACH TAB PO SCH ×2 (12:11→16:00)
--- NOTE | 2024-10-18 12:27 | CT ---
EXAMINATION TYPE: CT brain wo con DATE OF EXAM: 10/18/2024 12:18 PM COMPARISON: 09/12/2024. CLINICAL INDICATION: Male, 63 years old with history of ams, AMS TECHNIQUE: Brain: Axial CT images of the brain were obtained with coronal and sagittal reformats created and rev iewed. Contrast used: None. Oral contrast used: None. CT DLP: 1127.7 mGycm, Automated exposure control for dose reduction was used. FINDINGS: Brain: Extra-axial spaces: No abnormal extra-axial fluid collections. Ventricular system: Within normal limits Cerebral parenchyma: Deep stimulator leads noted bilaterally No acute intraparenchymal hemorrhage or mass effect. The pizano-white junction is well differentiated. Cerebellum: Unremarkable. Mass effect: No evidence of midline shift. Intracranial vasculature: unremarkable Soft tissues: Normal. Calvarium/osseous structures: No depressed skull fracture. Paranasal sinuses and mastoid air cells: Mild scattered paranasal sinus disease. Visualized orbits: Orbital contents are intact. IMPRESSION: No acute intracranial process. [facility], , 10/18/2024 12:24 PM
[2024-10-18] MEDS: PIPERACILLIN-TAZOBACTAM 3.375 GM in SODIUM CHLORIDE 0.9% 100 ML IVPB SCH (17:01)
[2024-10-18] MEDS: COLLAGENASE 250 UNIT/GM OINTMENT 30 GM TUBE TOPICAL SCH (18:46)
[2024-10-19 05:27] LABS: Basophils % (A) 1 %; Eosinophils # (A) 0.4 k/uL (0-0.7); Eosinophils % (A) 6 %; HCT 32.2 % (39.0-53.0); HGB 10.6 gm/dL (13.0-17.5); Lymphocytes # (A) 0.7 k/uL (1.0-4.8); Lymphocytes % (A) 10 %; MCH 29.8 pg (25.0-35.0); MCHC 32.9 g/dL (31.0-37.0); MCV 90.7 fL (80.0-100.0); Mean Platelet Volume 7.3; Monocytes # (A) 0.5 k/uL (0-1.0); Monocytes % (A) 7 %; Neutrophils # (A) 5.4 k/uL (1.3-7.7); Neutrophils % (A) 76 %; Platelet Count 151 k/uL (150-450); RBC 3.55 m/uL (4.30-5.90); RDW 14.9 % (11.5-15.5); WBC 7.2 k/uL (3.8-10.6)
[2024-10-19 06:55] LABS: ALT 12 U/L (4-49); AST 30 U/L (17-59); African American GFR (CKD) 11 (>60 ml/min/1.73 sqM); Albumin 2.8 g/dL (3.5-5.0); Albumin/Globulin Ratio 0.9; Alkaline Phosphatase 83 U/L (38-126); Anion Gap 14 mmol/L; Blood Urea Nitrogen 70 mg/dL (9-20); C Reactive Protein 1.5 mg/dL (<1.0); Calcium 9.5 mg/dL (8.4-10.2); Carbon Dioxide 17 mmol/L (22-30); Chloride 122 mmol/L (98-107); Glucose 84 mg/dL (74-99); Non-African American GFR(CKD) 10 (>60 ml/min/1.73 sqM); Potassium 4.2 mmol/L (3.5-5.1); Sodium 153 mmol/L (137-145); Total Bilirubin 0.6 mg/dL (0.2-1.3); Total Protein 5.8 g/dL (6.3-8.2)
--- NOTE | 2024-10-19 08:23 | P.CONS ---
History of Present Illness - Reason for Consult Consult date: 10/18/24 Pressure ulcer Requesting physician: Alexis E Sheet - Chief Complaint Confusion decreased level responsiveness x few days - History of Present Illness Patient is a 63-year-old male with a past medical history significant for hypertension Parkinson's recent admission to the hospital for aspiration pneumonia and also have infected sacral pressure ulcer culture positive for MRSA and Pseudomonas for the patient was transferred back to snf on IV cefepime and vancomycin x 2 weeks patient subsequently noticed to have elevated vancomycin trough which was discontinued and the patient was switched over to daptomycin patient has not been brought back to the hospital concerning for increased confusion diaphoresis and the family report the patient has been unresponsive the last 2 to 3 days patient did have some flapping movement to the upper extremity but no other peripheral close movement and did not responded to his name patient on presentation to hospital was afebrile did have a low-grade fever of 99.4 F patient was not tachycardic hypotensive or hypoxic no need for supplemental oxygen he did have a white count of 10.8 with a left shift BUN and creatinine has been elevated with a creatinine of 3.97 urine has been with mild RBC but no WBC influenza RSV COVID testing was negative patient did have a chest x-ray airspace opacity projecting spine correlate for pneumonia CT of the brain was negative for any bleed patient has been admitted to hospital infectious disease was consulted regarding pressure ulcer most information has been obtained from review the chart and in the family as the patient did not provide any history Review of Systems Positive points has been mentioned in HPI complete review could not be obtained because of his underlying mental status Past Medical History Past Medical History: Hypertension Additional Past Medical History / Comment(s): parkinsons DNR-10/17/2024 History of Any Multi-Drug Resistant Organisms: MRSA Year Discovered:: 09/30/24 MDRO Source:: buttock Past Surgical History: No Surgical Hx Reported Additional Past Surgical History / Comment(s): deep brain stimulator Past Anesthesia/Blood Transfusion Reactions: No Reported Reaction Past Psychological History: No Psychological Hx Reported Smoking Status: Former smoker Past Alcohol Use History: Occasional Past Drug Use History: Marijuana - Past Family History Father Family Medical History: Unable to Obtain Mother Family Medical History: Unable to Obtain Medications and Allergies Home Medications Medication Instructions Recorded Confirmed Type Atorvastatin [Lipitor] 20 mg PO HS@2100 08/31/24 10/18/24 History atenoloL [Tenormin] 25 mg PO DAILY@0600 08/31/24 10/18/24 History Loperamide [Imodium] 2 mg PO QID PRN cap 09/16/24 10/18/24 Rx Carbidopa-Levodopa 25-100 mg 1 tab PO AC-TID 09/30/24 10/18/24 History [Sinemet 25-100 mg] Cholestyramine (with Sugar) 4 gm PO BID@0800,1700 09/30/24 10/18/24 History [Questran Packet] Ensure Enlive 237 ml PO TID@0800,1200,1700 09/30/24 10/18/24 History Heparin Sodium,Porcine (1 ml) 5,000 unit SQ Q12HR@0800,2100 09/30/24 10/18/24 History [Heparin Sodium] Ipratropium-Albuterol Nebulize 3 ml INHALATION RT-Q6H 09/30/24 10/18/24 History [Duoneb 0.5 mg-3 mg/3 ml Soln] Liquacel 30 ml PO DAILY@0800 09/30/24 10/18/24 History Magic Cup 1 dose PO DAILY@1200 09/30/24 10/18/24 History Magnesium Hydroxide [Milk of 7,200 mg PO DAILY PRN 09/30/24 10/18/24 History Magnesia Concentrate] Na Phos,M-B/Na Phos,Di-Ba [Fleet 133 ml RECTAL DAILY PRN 09/30/24 10/18/24 History Adult] bisacodyL [Dulcolax] 10 mg RECTAL DAILY PRN 09/30/24 10/18/24 History Acetaminophen Tab [Tylenol] 650 mg PO Q6HR PRN 10/18/24 10/18/24 History Cefepime [Maxipime] 2 gm IVPB Q8HR@0600,1400,2200 10/18/24 10/18/24 History DAPTOmycin 350 mg IV DAILY@0800 10/18/24 10/18/24 History HYDROcodone/APAP [[place] Elixir 10 ml PO Q6H PRN 10/18/24 10/18/24 History 7.5-325Mg/15Ml] LORazepam [Ativan] 0.5 mg PO Q8H PRN 10/18/24 10/18/24 History Melatonin 5 mg PO HS@2100 10/18/24 10/18/24 History Allergies Allergy/AdvReac Type Severity Reaction Status Date / Time No Known Allergies Allergy Verified 10/18/24 12:01 Physical Exam Vitals: Vital Signs Temp Pulse Pulse Resp BP BP Pulse Ox 10/18/24 13:23 98.9 F 72 19 125/65 97 10/18/24 08:00 99.4 F 86 18 163/79 97 10/18/24 06:50 16 145/74 93 L 10/18/24 04:58 99.1 F 10/18/24 04:35 20 116/64 95 10/18/24 02:24 18 142/71 95 10/18/24 01:09 99.1 F 91 22 99/76 96 10/18/24 00:25 92 16 135/67 96 10/17/24 19:09 98.0 F 86 18 108/61 97 Intake and Output 10/17/24 10/18/24 10/18/24 22:59 06:59 14:59 Output Total 200 Balance -200 Output: Urine 200 Other: Weight 78.925 kg 78.925 kg GENERAL DESCRIPTION: Elderly male lying in bed, no distress. No tachypnea or accessory muscle of respiration use. HEENT: Shows Pallor , no scleral icterus. Oral mucous membrane is dry. No pharyngeal erythema or thrush NECK: Trachea central, no thyromegaly. LUNGS: Unlabored breathing. Decreased breath sound at the base HEART: S1, S2, regular rate and rhythm. No loud murmur ABDOMEN: Soft, no tenderness , guarding or rigidity, no organomegaly EXTREMITIES: No edema of feet. SKIN: Patient did have a stage III sacral pressure ulcer which has decreased in size with minimal slough tissue no surrounding redness NEUROLOGICAL: The patient is unresponsive orientation could not determine Results CBC & Chem 7: 10/19/24 04:21 10/19/24 04:21 Labs: Abnormal Lab Results - Last 24 Hours (Table) 10/17/24 10/17/24 10/18/24 Range/Units 19:30 19:30 06:00 WBC 10.8 H (3.8-10.6) k/uL RBC 3.87 L (4.30-5.90) m/uL Hgb 11.5 L (13.0-17.5) gm/dL Hct 35.9 L (39.0-53.0) % Neutrophils # 8.5 H (1.3-7.7) k/uL Lymphocytes # 0.9 L (1.0-4.8) k/uL Sodium 151 H (137-145) mmol/L Chloride 117 H (98-107) mmol/L Carbon Dioxide 13 L (22-30) mmol/L BUN 60 H (9-20) mg/dL Creatinine 3.97 H (0.66-1.25) mg/dL Glucose 71 L (74-99) mg/dL Albumin 3.4 L (3.5-5.0) g/dL Urine Protein 1+ H (Negative) Urine Ketones 1+ H (Negative) Urine Blood Moderate H (Negative) Urine RBC 8 H (0-5) /hpf Urine Bacteria Rare H (None) /hpf Urine Mucus Rare H (None) /hpf Urine Yeast (Budding) Moderate H (None) /hpf Assessment and Plan (1) Pneumonia Current Visit: Yes Status: Acute Code(s): J18.9 - PNEUMONIA, UNSPECIFIED ORGANISM SNOMED Code(s): 322042935 (2) Stage III pressure ulcer of sacral region Current Visit: No Status: Acute Code(s): L89.153 - PRESSURE ULCER OF SACRAL REGION, STAGE 3 SNOMED Code(s): 25789058803429 Plan: 1patient presenting to the hospital with mental status changes decreased level of responsiveness and confusion which is likely multifactorial patient did have evidence of worsening kidney function and uremia could be contributing to it however patient has been on cefepime which can cause mental status changes and confusion. 2there was also concern for possible pneumonia on the chest x-ray keeping in mind the snf resident with confusion underlying aspiration and gram- negative pneumonia not entirely excluded 3patient sacral pressure also has shown no clinical improvement will be treated with daptomycin and will switch tomorrow to Zosyn to cover for the Pseudomonas that should also cover for the possible aspiration/gram-negative pneumonia and local wound care with the Santyl followed by moist dressing keep the area of the pressure Family at the bedside multiple questions answered We will follow on clinical condition and cultures to further adjust medication if needed Thank you for this consultation we will follow the patient along with you Dictation was produced using [employer] software. please excuse any gram matical, word or spelling errors. Time with Patient: Greater than 30
[2024-10-19] MEDS: SODIUM CHLORIDE 0.9% IVPB SCH (10:01)
[2024-10-19] MEDS: DAPTOMYCIN IVPB SCH (10:01)
--- NOTE | 2024-10-19 11:35 | P.PN ---
Subjective This is a pleasant 63 years old male on 10/01 who was recently discharged from this facility for pressure ulcer stage II on IV vancomycin and cefepime. Currently he presents from skilled nursing for being diaphoretic for 2 days with pressure ulcers on the buttock. Patient cannot provide information , He does not answer questions. He keeps his eye closed and resists opening them, he has a resting tremor, pill rolling tremor in his right hand, he has stiff both upper and lower extremities. Pupils are equal and reactive to light. He has stage II pressure ulcer with some pinkish discoloration, no purulent discharge He has right arm PICC line, he is on IV daptomycin from skilled nursing started on 10/16 till 10/27 Patient afebrile blood pressure stable WBCs 10.8, hemoglobin 11.5, sodium elevated 151, creatinine 3.9, previously was 1.7 and it was 2, I reviewed the chest x-ray myself .7. Chest x-ray: Airspace opacity projecting the spine correlate for pneumonia per radiologist, I reviewed chest x-ray myself, no significant consolidation, includ ing symmetrical no pleural effusion. 10/19 Patient still confused, does not answer questions. He has pill rolling tremor, yesterday was in his right hand and today in his left hand, he has generalized stiffness most likely related to his Parkinson disease, patient has been confused for the last 3 to 4 days and he was not taking his Parkinson medication, the suspicion of seizure is low however he received Ativan yesterday. CT of the brain was negative neurology service consulted already Also has been treated for sepsis suspected for pressure ulcers also there is suspicion of aspiration pneumonia and currently has been covered with Zosyn. Looks like emergency room team consulted hospice, yesterday after rounding bedside nurse called me stating patient family requesting to talk to hospice t eam. We are going to talk to family and if they agreeable with going to place NG tube to start his Parkinson medication and other oral medication His hypernatremia and creatinine are trending up. NG tube placed can help also with water flushes He is continued on D5 W at 75 mL/h and dose increased today to 100 mL/h. Review of system: Patient cannot provide information because of AMS Active Medications Generic Name Dose Route Start Last Admin Trade Name Freq PRN Reason Stop Dose Admin Acetaminophen 650 mg 10/17/24 22:35 Acetaminophen Tab 325 Mg Tab PO Q6HR PRN Mild Pain or Fever > 100.5 Carbidopa/Levodopa 1 each 10/18/24 16:00 10/19/24 10:01 Carbidopa-Levodopa 25-100 Mg 1 Each Tab PO Not Given TID [facility] Collagenase 1 applic 10/18/24 18:15 10/19/24 10:01 Collagenase 250 Unit/Gm Ointment 30 Gm Tube TOPICAL 1 applic DAILY [facility] Administration Protocol Piperacillin Sod/Tazobactam 100 mls @ 25 mls/hr 10/18/24 16:30 10/19/24 03:31 Sod 3.375 gm/ Sodium Chloride IVPB 25 mls/hr Q12H [facility] Administration Protocol Daptomycin 325 mg/ Sodium 50 mls @ 100 mls/hr 10/19/24 09:00 10/19/24 10:01 Chloride IVPB 100 mls/hr Q48H [facility] Administration Protocol Dextrose/Water 1,000 mls @ 100 mls/hr 10/19/24 10:45 Dextrose 5%-Water Iv Soln IV .Q10H [facility] Naloxone HCl 0.2 mg 10/17/24 22:35 Naloxone 0.4 Mg/Ml 1 Ml Vial IV Q2M PRN Opioid Reversal Objective - Vital Signs Vital signs: Vital Signs Temp 99.4 F 10/19/24 07:43 Pulse 77 10/19/24 07:43 Resp 19 10/19/24 07:43 BP 155/73 10/19/24 07:43 Pulse Ox 96 10/19/24 07:43 FiO2 Intake & Output 10/18/24 10/19/24 10/19/24 18:59 06:59 18:59 Intake Total 1000 Output Total 350 150 Balance 650 -150 Weight 78.925 kg Intake: Intake, IV Titration 1000 Amount Dextrose 5% in Water 1, 900 000 ml @ 75 mls/hr IV . [id number] ONE Rx#:[id number] Piperacillin-Tazobactam 3 100 .375 gm In Sodium Chloride 0.9% 100 ml @ 25 mls/hr IVPB Q12H [facility] Rx# :[id number] Output: Urine 350 150 Other: Voiding Method Indwelling Catheter Indwelling Catheter - Exam -GENERAL: The patient is confused and stiff all over his body, looks like related to his Parkinson disease process other HEENT: Pupils are round and equally reacting to light. EOMI. No scleral icterus. No conjunctival pallor. Normocephalic, atraumatic. No pharyngeal erythema. No thyromegaly. CARDIOVASCULAR: S1 and S2 present. No murmurs, rubs, or gallops. PULMONARY: Chest is clear to auscultation, no wheezing , no crackles. ABDOMEN: Soft, nontender, nondistended, normoactive bowel sounds. No palpable organomegaly. MUSCULOSKELETAL: No joint swelling or deformity. EXTREMITIES: No cyanosis, clubbing, or pedal edema. NEUROLOGICAL: Confused, keep eye closed, resists opening eyes , he has resting t remor of the right and left hands, he follows some certain commands like squeezing the hands SKIN: No rashes. no petechiae. - Labs CBC & Chem 7: 10/19/24 04:21 10/19/24 04:21 Labs: Abnormal Lab Results - Last 24 Hours (Table) 10/19/24 10/19/24 10/19/24 Range/Units 04:21 04:21 04:21 RBC 3.55 L (4.30-5.90) m/uL Hgb 10.6 L (13.0-17.5) gm/dL Hct 32.2 L (39.0-53.0) % Lymphocytes # 0.7 L (1.0-4.8) k/uL Sodium 153 H (137-145) mmol/L Chloride 122 H (98-107) mmol/L Carbon Dioxide 17 L (22-30) mmol/L BUN 70 H (9-20) mg/dL Creatinine 5.61 H (0.66-1.25) mg/dL C-Reactive Protein 1.5 H (<1.0) mg/dL Total Protein 5.8 L (6.3-8.2) g/dL Albumin 2.8 L (3.5-5.0) g/dL Procalcitonin 0.77 H (0.02-0.50) ng/mL Assessment and Plan Assessment: Stage II sacral pressure ulcer with suspected infection Possible aspiration pneumonia Metabolic/toxic encephalopathy Hypernatremia Acute kidney injury Parkinson disease, patient has resting tremor in his right hand and generalized stiffness, he is not taking his medication with nonadherence to medication Congenital UPJ with nonfunctioning right kidney and chronic right hydronephrosis, no need for any intervention per urologist recently evaluated him during last admission Hypertension Hyperlipidemia Plan: Continue with Zosyn Consult infectious disease team CT of the brain is reviewed neurology consult Resume home medication after placing NG tube if family agreeable Change fluid to D5 no water at 100 mL/h, start water flushes once NG tube in place Consult nephrology team Labs and medication were reviewed.. Continue same treatment. Continue with symptomatic treatment. Resume home medication. Monitor labs and vitals. DVT and GI prophylaxis. Further recommendations as per clinical course of the patient DVT prophylaxis: Subcutaneous heparin GI Prophylaxis: Pepcid Prognosis is guarded Hospice consult was placed in the emergency room, family still wants to talk to hospice team
[2024-10-19] MEDS ORDERED: LORazepam 2 MG/ML INJ IV PRN (11:36)
--- NOTE | 2024-10-19 13:30 | P.NPCON ---
History of Present Illness - Reason for Consult Consult date: 10/19/24 - History of Present Illness Patient is an 63-year-old male with history of hypertension, Parkinson's disease, CKD with solitary functioning left kidney and congenital UPJ, nonfunctioning right kidney. He is admitted to the hospital from [facility] due to 2 days of pressure ulcer on buttock. He was recently discharged 10/01 for pressure ulcer stage II on IV vancomycin and cefepime. PICC line in right arm. Patient unable to provide further history. Serum creatinine was 3.97 on admission yesterday and it is 5.61 today. Previous creatinine 0.62 on 10/06/2024. Did have urine output on admission, catheter placed for incontinence and sacral wound. Currently with indwelling Davenport catheter with 500 mL of urine charted yesterday. Maintained on low-dose atenolol at home. No NSAIDs noted. Episode of hypotension on evening of admission 99/76, most recent BP 155/73 No significant nausea or vomiting. No evidence of obstruction with indwelling Davenport catheter. Serum sodium was 151 on admission and now elevated to 153. Past Medical History Past Medical History: Hypertension Additional Past Medical History / Comment(s): parkinsons DNR-10/17/2024 History of Any Multi-Drug Resistant Organisms: MRSA Date of last positivie culture/infection: 09/30/24 MDRO Source:: buttock Past Surgical History: No Surgical Hx Reported Additional Past Surgical History / Comment(s): deep brain stimulator Past Anesthesia/Blood Transfusion Reactions: No Reported Reaction Past Psychological History: No Psychological Hx Reported Smoking Status: Former smoker Past Alcohol Use History: Occasional Past Drug Use History: Marijuana - Past Family History Father Family Medical History: Unable to Obtain Mother Family Medical History: Unable to Obtain Medications and Allergies Home Medications Medication Instructions Recorded Confirmed Type Atorvastatin [Lipitor] 20 mg PO HS@2100 08/31/24 10/18/24 History atenoloL [Tenormin] 25 mg PO DAILY@0600 08/31/24 10/18/24 History Loperamide [Imodium] 2 mg PO QID PRN cap 09/16/24 10/18/24 Rx Carbidopa-Levodopa 25-100 mg 1 tab PO AC-TID 09/30/24 10/18/24 History [Sinemet 25-100 mg] Cholestyramine (with Sugar) 4 gm PO BID@0800,1700 09/30/24 10/18/24 History [Questran Packet] Ensure Enlive 237 ml PO TID@0800,1200,1700 09/30/24 10/18/24 History Heparin Sodium,Porcine (1 ml) 5,000 unit SQ Q12HR@0800,2100 09/30/24 10/18/24 History [Heparin Sodium] Ipratropium-Albuterol Nebulize 3 ml INHALATION RT-Q6H 09/30/24 10/18/24 History [Duoneb 0.5 mg-3 mg/3 ml Soln] Liquacel 30 ml PO DAILY@0800 09/30/24 10/18/24 History Magic Cup 1 dose PO DAILY@1200 09/30/24 10/18/24 History Magnesium Hydroxide [Milk of 7,200 mg PO DAILY PRN 09/30/24 10/18/24 History Magnesia Concentrate] Na Phos,M-B/Na Phos,Di-Ba [Fleet 133 ml RECTAL DAILY PRN 09/30/24 10/18/24 History Adult] bisacodyL [Dulcolax] 10 mg RECTAL DAILY PRN 09/30/24 10/18/24 History Acetaminophen Tab [Tylenol] 650 mg PO Q6HR PRN 10/18/24 10/18/24 History Cefepime [Maxipime] 2 gm IVPB Q8HR@0600,1400,2200 10/18/24 10/18/24 History DAPTOmycin 350 mg IV DAILY@0800 10/18/24 10/18/24 History HYDROcodone/APAP [[place] Elixir 10 ml PO Q6H PRN 10/18/24 10/18/24 History 7.5-325Mg/15Ml] LORazepam [Ativan] 0.5 mg PO Q8H PRN 10/18/24 10/18/24 History Melatonin 5 mg PO HS@2100 10/18/24 10/18/24 History Allergies Allergy/AdvReac Type Severity Reaction Status Date / Time No Known Allergies Allergy Verified 10/18/24 12:01 Physical Exam Vitals: Vital Signs Temp Pulse Resp BP Pulse Ox 10/19/24 07:43 99.4 F 77 19 155/73 96 10/19/24 01:36 98.9 F 68 16 147/71 95 10/18/24 18:13 99.3 F 69 19 141/67 97 10/18/24 13:23 98.9 F 72 19 125/65 97 Intake and Output 10/18/24 10/19/24 10/19/24 22:59 06:59 14:59 Intake Total 1000 Output Total 350 150 Balance 650 -150 Intake: Intake, IV Titration 1000 Amount Dextrose 5% in Water 1, 900 000 ml @ 75 mls/hr IV . [id number] ONE Rx#:[id number] Piperacillin-Tazobactam 3 100 .375 gm In Sodium Chloride 0.9% 100 ml @ 25 mls/hr IVPB Q12H [facility] Rx# :[id number] Output: Urine 350 150 Other: Voiding Method Indwelling Catheter Indwelling Catheter Patient is confused, not following commands Examination of the heart S1 and S2 Examination of the lungs bilateral breath sounds are heard Abdomen is soft nontender Examination of lower extremities shows chronic skin changes no significant edema. [employer] exam with stiffness, with resting tremor, resisting eye opening Results - Lab Results Most recent lab results Calcium 9.5 mg/dL (8.4-10.2) 10/19/24 04:21 10/20/24 04:06 10/20/24 04:06 Assessment and Plan Assessment: 1. Acute kidney injury secondary to vancomycin toxicity and hypotension. Significantly increased creatinine 3.97 on admission 5.61 today with previous creatinine 0.6 on 10/06/2024. UA significant for protein, blood, RBCs. Vancomycin trough elevated at 50.6 on 10/12, random vancomycin today 26.5. 2. 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 3. Hypovolemic hypernatremia associated with acute kidney injury. 4. Metabolic acidosis with anion gap likely from CKD, initial bicarb 13, improved to 17 5. Sacral ulcer stage II on buttock 6. Parkinson's disease 7. HTN Plan: Currently with indwelling catheter for incontinence, no obstruction noted UA reviewed, significant for protein, blood, RBCs Check ultrasound of kidneys Add D5W at 100 cc/h Recheck lytes this afternoon Thank you for the consultation. We will continue to follow the patient with you during his hospitalization. Patient is seen and examined. Agree with resident's findings assessment and plan.
[2024-10-19] MEDS: DEXTROSE 5% IN WATER 1,000 ML IV SCH (13:45)
--- NOTE | 2024-10-19 14:25 | US ---
EXAMINATION TYPE: US kidneys/renal and bladder DATE OF EXAM: 10/19/2024 COMPARISON: NONE CLINICAL INDICATION: Male, 63 years old with history of ELIJAH; Pt family stated pt's left kidney is "dying" per dr, known rt kidney severe hydrocele from prior CT(08/31/2024) TECHNIQUE: Grayscale imaging of the bilateral kidneys and urinary bladder: FINDINGS: EXAM MEASUREMENTS: Right Kidney: 10.1x6.2x8.1 cm Left Kidney: 12.8x7.6x5.4 cm very limited exam due to pt unable to move or hold still, pt has end stage parkinson's Right Kidney: Very severe hydrocele is noted from prior CT, limited visualization of rt kidney due to hydro Left Kidney: slight limitations due to pt unable to roll, no abnormalities seen w best images taken Bladder: pt has catheter in Severe right hydronephrosis with cortical thinning. No shadowing calculus. No solid right renal mass. Left kidney appears unremarkable without shadowing calculi, hydronephrosis or solid mass. No signifi cant cortical thinning. Urinary bladder is decompressed with Davenport catheter which significantly limit s evaluation. IMPRESSION: Severe right hydronephrosis with cortical thinning suggesting chronic process. [facility], , 10/19/2024 2:23 PM
--- NOTE | 2024-10-19 14:53 | XR ---
EXAMINATION TYPE: XR chest 1V portable DATE OF EXAM: 10/19/2024 2:46 PM COMPARISON: Chest radiographs from 10/17/2024 TECHNIQUE: XR chest 1V portable Portable AP radiograph of the chest. CLINICAL INDICATION:Male, 63 years old with history of NG tube placement; FINDINGS: Lungs/Pleura: No pneumothorax or pleural effusion. Similar bibasilar subtle patchy airspace opacities . Pulmonary vascularity: Unremarkable. Heart/mediastinum: Cardiomediastinal silhouette is unremarkable. Musculoskeletal: No acute osseous pathology. Other findings: Left upper chest wall stimulator device power pack. Lines/Tubes: Right PICC line with distal tip at the brachiocephalic SVC confluence. Nasogastric tube with its distal tip within the stomach with the sidehole at the GE junction. IMPRESSION: 1. NG tube with distal tip within the stomach however the sidehole is at the GE junction. Recommend advancement of 4 cm. 2. Similar bibasilar subtle airspace opacities. [facility], , 10/19/2024 2:51 PM
--- NOTE | 2024-10-19 17:17 | P.PN ---
Subjective Progress Note Date: 10/19/24 Principal diagnosis: Reason for follow-up is pneumonia infected sacral pressure ulcer Patient is a 63-year-old male with a past medical history significant for hypertension Parkinson's recent admission to the hospital for aspiration pneumonia and also have infected sacral pressure ulcer culture positive for MRSA and Pseudomonas treated with the cefepime vancomycin initially that was transitioned to daptomycin in the outpatient setting has been brought back to the hospital concerning for mental status changes unresponsiveness and there was a question of pneumonia. On today's evaluation that is 10/19/2024, patient has been afebrile, patient is breathing comfortably and is currently on room air, patient slightly more awake with open eyes but did not respond to any question no vomiting diarrhea and the changes reported by the nursing staff. Patient white count 7.2, creatinine is 5.61 Pro-Daniel 0.77 Objective - Vital Signs Vital signs: Vital Signs Temp 99.4 F 10/19/24 07:43 Pulse 77 10/19/24 07:43 Resp 19 10/19/24 07:43 BP 155/73 10/19/24 07:43 Pulse Ox 96 10/19/24 07:43 FiO2 Intake & Output 10/18/24 10/19/24 10/19/24 18:59 06:59 18:59 Intake Total 1000 Output Total 350 150 Balance 650 -150 Weight 78.925 kg Intake: Intake, IV Titration 1000 Amount Dextrose 5% in Water 1, 900 000 ml @ 75 mls/hr IV . [id number] Rx#:[id number] Piperacillin-Tazobactam 3 100 .375 gm In Sodium Chloride 0.9% 100 ml @ 25 mls/hr IVPB Q12H [facility] Rx# :[id number] Output: Urine 350 150 Other: Voiding Method Indwelling Catheter Indwelling Catheter - Exam GENERAL DESCRIPTION: An elderly male lying in bed in no distress RESPIRATORY SYSTEM: Unlabored breathing , decreased breath sounds at bases HEART: S1 S2 regular rate and rhythm , ABDOMEN: Soft , no tenderness EXTREMITIES: No edema feet - Labs CBC & Chem 7: 10/19/24 04:21 10/19/24 04:21 Labs: Abnormal Lab Results - Last 24 Hours (Table) 10/19/24 10/19/24 10/19/24 Range/Units 04:21 04:21 04:21 RBC 3.55 L (4.30-5.90) m/uL Hgb 10.6 L (13.0-17.5) gm/dL Hct 32.2 L (39.0-53.0) % Lymphocytes # 0.7 L (1.0-4.8) k/uL Sodium 153 H (137-145) mmol/L Chloride 122 H (98-107) mmol/L Carbon Dioxide 17 L (22-30) mmol/L BUN 70 H (9-20) mg/dL Creatinine 5.61 H (0.66-1.25) mg/dL C-Reactive Protein 1.5 H (<1.0) mg/dL Total Protein 5.8 L (6.3-8.2) g/dL Albumin 2.8 L (3.5-5.0) g/dL Procalcitonin 0.77 H (0.02-0.50) ng/mL Assessment and Plan (1) Pneumonia Current Visit: Yes Status: Acute Code(s): J18.9 - PNEUMONIA, UNSPECIFIED ORGANISM SNOMED Code(s): 833629295 (2) Stage III pressure ulcer of sacral region Current Visit: No Status: Acute Code(s): L89.153 - PRESSURE ULCER OF SACRAL REGION, STAGE 3 SNOMED Code(s): 28984756956401 Plan: 1patient presenting to the hospital with mental status changes decreased level of responsiveness and confusion which is likely multifactorial patient did have evidence of worsening kidney function and uremia could be contributing to it however patient has been on cefepime which can cause mental status changes and confusion. 2possible pneumonia on the chest x-ray keeping in mind the halfway resident with confusion underlying aspiration and gram-negative pneumonia not entirely excluded 3patient currently being treated treated with daptomycin and Zosyn along with local wound care with Santyl and monitor clinical course closely Dictation was produced using [employer] [place] dictation software. please excuse any grammatical, word or spelling errors. Time with Patient: Less than 30
[2024-10-19 19:04] LABS: Potassium 4.5 mmol/L (3.5-5.1)
--- NOTE | 2024-10-20 08:41 | P.CNNES ---
History of Present Illness Consult date: 10/19/24 Requesting physician: Alexandr Welch Reason for Consult: Altered mental status History of Present Illness: Patient is a 63-year-old male with very advanced Parkinson's disease, came to the hospital by ambulance 2 days ago, 8 6:59 PM. Family members not present and patient not able to provide any history. As per EMS flowsheet, when they arrived, patient has been having uncontrolled diaphoresis since yesterday. Patient has history of Parkinson's and normally is alert and oriented x 1 at best. Patient has not eaten or drank for the past day. Patient is not taking his prescription medications for the past 2 days. Patient was noted to be unresponsive. Patient opens his eyes only with movement of patient. Patient is contracted. Patient not having any obvious respiratory distress. No recent diarrhea or vomiting. Patient's blood pressure was 133/72, pulse rate 84 respiration 20 Vital signs on arrival blood pressure 108/61, pulse rate 60 patient 98.0. Tmax 99.4 axillary. Blood test shows WBC 10.8 hemoglobin 11.5, platelets 210. Sodium 151 potassium 4.5. BUN 60, creatinine 3.97. Hepatic panel is normal. UA shows no infection. Influenza, RSV and coronavirus PCR negative. Chest x-ray showed airspace opacities projecting the spine. Correlate for pneumonia. CT head showed no acute intracranial process. Ultrasound of abdomen and bladder showed severe right hydronephrosis with cortical thinning suggesting chronic process. Chest x-ray showed NG tube with distal tip within the stomach however the sideholes is at the GE junction. Patient has been seen by myself on 09/12/2024 for altered mental status felt to be related to metabolic encephalopathy. Patient was seen by neurology team recently in early September 2024 with altered mental status which was felt to be due to metabolic encephalopathy. Patient had severe Parkinson's, and there was some concern about critical illness myopathy. Patient was intubated and then extubated. He had aspiration pneumonia. Patient had acute kidney injury, fever and leukocytosis. Patient has DBS, which was activated at that time. Review of Systems ROS unobtainable: due to mental status Past Medical History Past Medical History: Hypertension Additional Past Medical History / Comment(s): parkinsons DNR-10/17/2024 History of Any Multi-Drug Resistant Organisms: MRSA Date of last positivie culture/infection: 09/30/24 MDRO Source:: buttock Past Surgical History: No Surgical Hx Reported Additional Past Surgical History / Comment(s): deep brain stimulator Past Anesthesia/Blood Transfusion Reactions: No Reported Reaction Past Psychological History: No Psychological Hx Reported Smoking Status: Former smoker Past Alcohol Use History: Occasional Past Drug Use History: Marijuana - Past Family History Father Family Medical History: Unable to Obtain Mother Family Medical History: Unable to Obtain Medications and Allergies Home Medications Medication Instructions Recorded Confirmed Type Atorvastatin [Lipitor] 20 mg PO HS@2100 08/31/24 10/18/24 History atenoloL [Tenormin] 25 mg PO DAILY@0600 08/31/24 10/18/24 History Loperamide [Imodium] 2 mg PO QID PRN cap 09/16/24 10/18/24 Rx Carbidopa-Levodopa 25-100 mg 1 tab PO AC-TID 09/30/24 10/18/24 History [Sinemet 25-100 mg] Cholestyramine (with Sugar) 4 gm PO BID@0800,1700 09/30/24 10/18/24 History [Questran Packet] Ensure Enlive 237 ml PO TID@0800,1200,1700 09/30/24 10/18/24 History Heparin Sodium,Porcine (1 ml) 5,000 unit SQ Q12HR@0800,2100 09/30/24 10/18/24 History [Heparin Sodium] Ipratropium-Albuterol Nebulize 3 ml INHALATION RT-Q6H 09/30/24 10/18/24 History [Duoneb 0.5 mg-3 mg/3 ml Soln] Liquacel 30 ml PO DAILY@0800 09/30/24 10/18/24 History Magic Cup 1 dose PO DAILY@1200 09/30/24 10/18/24 History Magnesium Hydroxide [Milk of 7,200 mg PO DAILY PRN 09/30/24 10/18/24 History Magnesia Concentrate] Na Phos,M-B/Na Phos,Di-Ba [Fleet 133 ml RECTAL DAILY PRN 09/30/24 10/18/24 History Adult] bisacodyL [Dulcolax] 10 mg RECTAL DAILY PRN 09/30/24 10/18/24 History Acetaminophen Tab [Tylenol] 650 mg PO Q6HR PRN 10/18/24 10/18/24 History Cefepime [Maxipime] 2 gm IVPB Q8HR@0600,1400,2200 10/18/24 10/18/24 History DAPTOmycin 350 mg IV DAILY@0800 10/18/24 10/18/24 History HYDROcodone/APAP [Saline Elixir 10 ml PO Q6H PRN 10/18/24 10/18/24 History 7.5-325Mg/15Ml] LORazepam [Ativan] 0.5 mg PO Q8H PRN 10/18/24 10/18/24 History Melatonin 5 mg PO HS@2100 10/18/24 10/18/24 History Allergies Allergy/AdvReac Type Severity Reaction Status Date / Time No Known Allergies Allergy Verified 10/18/24 12:01 Physical Examination - Vital Signs Vital Signs: Vital Signs Temp Pulse Resp BP Pulse Ox 10/19/24 19:28 98.3 F 83 16 126/86 95 10/19/24 14:00 99.6 F 77 18 137/63 95 10/19/24 07:43 99.4 F 77 19 155/73 96 10/19/24 01:36 98.9 F 68 16 147/71 95 Intake and Output 10/19/24 10/19/24 10/19/24 06:59 14:59 22:59 Intake Total 275 Output Total 150 Balance -150 275 Intake: Intake, IV Titration 275 Amount DAPTOmycin 325 mg In 50 Sodium Chloride 0.9% 50 ml @ 100 mls/hr IVPB Q48H [facility] Rx#:[id number] Dextrose 5% in Water 1, 200 000 ml @ 100 mls/hr IV . Q10H [facility] Rx#:[id number] Piperacillin-Tazobactam 3 25 .375 gm In Sodium Chloride 0.9% 100 ml @ 25 mls/hr IVPB Q12H [facility] Rx# :[id number] Output: Urine 150 Other: Voiding Method Indwelling Catheter Patient is an elderly male, who is laying in the bed, obtunded. Patient has NG tube in place. Patient is severely encephalopathic. He is not responding to calling his name. Patient is not withdrawing his arms to painful stimuli. Patient has constant pill-rolling tremor of his right hand. On the left side, he has almost finger flapping and guitar playing type movement of his left hand and fingers. On cranial nerve examination, pupils are equal, round and reacting to light, visual tony cannot be assessed. Patient keeps his eyes closed.. Extraocular muscles cannot be assessed. On manually opening the eyes, his gaze was midline., Although at times it looks like slight deviation to the right.. Face is symmetric. He did not protrude his tongue. Lower cranial nerves cannot be assessed. He does have some jaw tremors. On muscle strength testing, patient is not following any directions. He is not squeezing hands or moving his extremities to command. Patient is not withdrawing to painful stimuli. Deep tendon reflexes are symmetric hypoactive and plantar is down on the right, but up on the left. Sensory to touch and pinprick showed no response.. Cerebellar function cannot be assessed. Tone is severely increased in the right arm and right leg. Tone is moderate to severely increased in the left arm and left leg. His bulk of muscles normal. Gait deferred.. On general examination, there is no carotid bruit or murmur, S1-S2 audible. Chest is clear on consultation. Abdomen is soft nontender. No organomegaly, bowel sounds present. Peripheral pulses are present. No peripheral edema. Results - Laboratory Findings CBC and BMP: 10/19/24 04:21 10/19/24 18:09 Abnormal Lab Findings: Abnormal Labs 10/17/24 10/17/24 10/18/24 19:30 19:30 06:00 WBC 10.8 H RBC 3.87 L Hgb 11.5 L Hct 35.9 L Neutrophils # 8.5 H Lymphocytes # 0.9 L Sodium 151 H Chloride 117 H Carbon Dioxide 13 L BUN 60 H Creatinine 3.97 H Glucose 71 L C-Reactive Protein Total Protein Albumin 3.4 L Procalcitonin Urine Protein 1+ H Urine Ketones 1+ H Urine Blood Moderate H Urine RBC 8 H Urine Bacteria Rare H Urine Mucus Rare H Urine Yeast (Budding) Moderate H 10/19/24 10/19/24 10/19/24 04:21 04:21 04:21 WBC RBC 3.55 L Hgb 10.6 L Hct 32.2 L Neutrophils # Lymphocytes # 0.7 L Sodium 153 H Chloride 122 H Carbon Dioxide 17 L BUN 70 H Creatinine 5.61 H Glucose C-Reactive Protein 1.5 H Total Protein 5.8 L Albumin 2.8 L Procalcitonin 0.77 H Urine Protein Urine Ketones Urine Blood Urine RBC Urine Bacteria Urine Mucus Urine Yeast (Budding) 10/19/24 18:09 WBC RBC Hgb Hct Neutrophils # Lymphocytes # Sodium 148 H Chloride 120 H Carbon Dioxide 17 L BUN Creatinine Glucose C-Reactive Protein Total Protein Albumin Procalcitonin Urine Protein Urine Ketones Urine Blood Urine RBC Urine Bacteria Urine Mucus Urine Yeast (Budding) Assessment and Plan Assessment: * Altered mental status, likely due to toxic metabolic encephalopathy * Rule out sepsis/pneumonia * Stage III pressure ulcer of sacral region * Failure to thrive * Hypernatremia * Acute kidney injury, worsening * Advanced Parkinson's * Dementia, severe degree * Hydronephrosis with cortical thinning Plan: * Patient has advanced dementia and advanced Parkinson's. He has superimposed severe toxic metabolic encephalopathy due to reasons mentioned above. * Check EEG evaluate for encephalopathy, rule out any epileptiform activity * Treatment of various metabolic/medical conditions (as mentioned above) as per IM and other specialties on board. * Patient currently on Zosyn and daptomycin. ID on board. * We will try to contact patient's caregiver for obtaining collateral history. * Neurology will follow. Thank you for the consult.
[2024-10-20 08:45] LABS: Basophils # (A) 0.07 X 10*3/uL (0.00-0.10); Basophils % (A) 0.9 %; Eosinophils # (A) 0.49 X 10*3/uL (0.04-0.35); Eosinophils % (A) 6.3 %; HCT 35.1 % (39.6-50.0); HGB 10.5 g/dL (13.0-17.0); Lymphocytes # (A) 0.81 X 10*3/uL (0.90-5.00); Lymphocytes % (A) 10.5 %; MCH 29.1 pg (27.0-32.0); MCHC 29.9 g/dL (32.0-37.0); MCV 97.2 FL (80.0-97.0); Mean Platelet Volume 9.5 FL (9.5-12.2); Monocytes # (A) 1.02 X 10*3/uL (0.20-1.00); Monocytes % (A) 13.2 %; NRBC Per 100 WBC 0 X 10*3/uL (0.00-0.01); Neutrophils # (A) 5.28 X 10*3/uL (1.80-7.70); Neutrophils % (A) 68.5 %; Platelet Count 126 X 10*3/uL (140-440); RBC 3.61 X 10*6/uL (4.40-5.60); RDW 15.5 % (11.5-14.5); WBC 7.72 X 10*3/uL (4.50-10.00)
[2024-10-20] MEDS ORDERED: bisacodyL 10 MG SUPP RECTAL PRN (09:32)
--- NOTE | 2024-10-20 09:35 | P.PN ---
Subjective This is a pleasant 63 years old male on 10/01 who was recently discharged from this facility for pressure ulcer stage II on IV vancomycin and cefepime. Currently he presents from [facility] for being diaphoretic for 2 days with pressure ulcers on the buttock. Patient cannot provide information , He does not answer questions. He keeps his eye closed and resists opening them, he has a resting tremor, pill rolling tremor in his right hand, he has stiff both upper and lower extremities. Pupils are equal and reactive to light. He has stage II pressure ulcer with some pinkish discoloration, no purulent discharge He has right arm PICC line, he is on IV daptomycin from [facility] started on 10/16 till 10/27 Patient afebrile blood pressure stable WBCs 10.8, hemoglobin 11.5, sodium elevated 151, creatinine 3.9, previously was 1.7 and it was 2, I reviewed the chest x-ray myself .7. Chest x-ray: Airspace opacity projecting the spine correlate for pneumonia per radiologist, I reviewed chest x-ray myself, no significant consolidation, includ ing symmetrical no pleural effusion. 10/19 Patient still confused, does not answer questions. He has pill rolling tremor, yesterday was in his right hand and today in his left hand, he has generalized stiffness most likely related to his Parkinson disease, patient has been confused for the last 3 to 4 days and he was not taking his Parkinson medication, the suspicion of seizure is low however he received Ativan yesterday. CT of the brain was negative neurology service consulted already Also has been treated for sepsis suspected for pressure ulcers also there is suspicion of aspiration pneumonia and currently has been covered with Zosyn. Looks like emergency room team consulted hospice, yesterday after rounding bedside nurse called me stating patient family requesting to talk to hospice t eam. We are going to talk to family and if they agreeable with going to place NG tube to start his Parkinson medication and other oral medication His hypernatremia and creatinine are trending up. NG tube placed can help also with water flushes He is continued on D5 W at 75 mL/h and dose increased today to 100 mL/h. 10/20 Patient still nonverbal Head of bed at 45 degree NG tube in place Patient is started on water flushes. Also resumed some of his oral medications through NG tube like metoprolol 25 mg as patient blood pressure and heart rate were elevated. No diarrhea. Nutrition consult called for tube feeding Family met with hospice team yesterday per their request, they opted to continue with medical management. No hospice Review of system: Patient cannot provide information because of AMS Active Medications Generic Name Dose Route Start Last Admin Trade Name Freq PRN Reason Stop Dose Admin Acetaminophen 650 mg 10/17/24 22:35 Acetaminophen Tab 325 Mg Tab PO Q6HR PRN Mild Pain or Fever > 100.5 Atenolol 25 mg 10/21/24 06:00 Atenolol 25 Mg Tab PO DAILY@0600 TRIP Bisacodyl 10 mg 10/20/24 09:32 Bisacodyl 10 Mg Supp RECTAL DAILY PRN Constipation Carbidopa/Levodopa 1 each 10/18/24 16:00 10/19/24 21:56 Carbidopa-Levodopa 25-100 Mg 1 Each Tab PO 1 each TID TRIP Administration Collagenase 1 applic 10/18/24 18:15 10/20/24 09:12 Collagenase 250 Unit/Gm Ointment 30 Gm Tube TOPICAL Not Given DAILY TRIP Protocol Famotidine 20 mg 10/20/24 21:00 Famotidine 20 Mg/2 Ml Vial IV Q12HR [facility]IP Heparin Sodium (Porcine) 5,000 unit 10/20/24 21:00 Heparin Sodium,Porcine 5,000 Unit/Ml 1 Ml Vial SQ Q12HR [facility]IP Piperacillin Sod/Tazobactam 100 mls @ 25 mls/hr 10/18/24 16:30 10/20/24 03:56 Sod 3.375 gm/ Sodium Chloride IVPB 25 mls/hr Q12H [facility] Administration Protocol Daptomycin 325 mg/ Sodium 50 mls @ 100 mls/hr 10/19/24 09:00 10/19/24 10:01 Chloride IVPB 100 mls/hr Q48H [facility] Administration Protocol Dextrose/Water 1,000 mls @ 100 mls/hr 10/19/24 10:45 10/19/24 21:54 Dextrose 5%-Water Iv Soln IV 100 mls/hr .Q10H [facility] Administration Lorazepam 0.5 mg 10/19/24 11:36 Lorazepam 2 Mg/Ml Inj IV ONCE PRN Agitation Naloxone HCl 0.2 mg 10/17/24 22:35 Naloxone 0.4 Mg/Ml 1 Ml Vial IV Q2M PRN Opioid Reversal Family talk to hospice team Objective - Vital Signs Vital signs: Vital Signs Temp 99.2 F 10/20/24 08:00 Pulse 85 10/20/24 08:00 Resp 18 10/20/24 08:00 BP 156/80 10/20/24 08:00 Pulse Ox 97 10/20/24 08:00 FiO2 Intake & Output 10/19/24 10/20/24 10/20/24 18:59 06:59 18:59 Intake Total 275 Output Total 150 Balance 275 -150 Intake: Intake, IV Titration 275 Amount DAPTOmycin 325 mg In 50 Sodium Chloride 0.9% 50 ml @ 100 mls/hr IVPB Q48H [facility] Rx#:[id number] Dextrose 5% in Water 1, 200 000 ml @ 100 mls/hr IV . Q10H [facility] Rx#:[id number] Piperacillin-Tazobactam 3 25 .375 gm In Sodium Chloride 0.9% 100 ml @ 25 mls/hr IVPB Q12H [facility] Rx# :[id number] Output: Urine 150 Other: Voiding Method Indwelling Catheter Indwelling Catheter Indwelling Catheter - Exam -GENERAL: The patient is confused and stiff all over his body, looks like related to his Parkinson disease process other HEENT: Pupils are round and equally reacting to light. EOMI. No scleral icterus. No conjunctival pallor. Normocephalic, atraumatic. No pharyngeal erythema. No thyromegaly. CARDIOVASCULAR: S1 and S2 present. No murmurs, rubs, or gallops. PULMONARY: Chest is clear to auscultation, no wheezing , no crackles. ABDOMEN: Soft, nontender, nondistended, normoactive bowel sounds. No palpable organomegaly. MUSCULOSKELETAL: No joint swelling or deformity. EXTREMITIES: No cyanosis, clubbing, or pedal edema. NEUROLOGICAL: Confused, keep eye closed, resists opening eyes , he has resting tremor of the right and left hands, he follows some certain commands like squeezing the hands SKIN: No rashes. no petechiae. - Labs CBC & Chem 7: 10/20/24 04:06 10/19/24 18:09 Labs: Abnormal Lab Results - Last 24 Hours (Table) 10/19/24 10/19/24 10/20/24 Range/Units 04:21 18:09 04:06 RBC 3.61 L (4.40-5.60) X 10*6/uL Hgb 10.5 L (13.0-17.0) g/dL Hct 35.1 L (39.6-50.0) % MCV 97.2 H (80.0-97.0) FL MCHC 29.9 L (32.0-37.0) g/dL RDW 15.5 H (11.5-14.5) % Plt Count 126 L (140-440) X 10*3/uL Immature Gran # 0.05 H (0.00-0.04) X 10*3/uL Lymphocytes # 0.81 L (0.90-5.00) X 10*3/uL Monocytes # 1.02 H (0.20-1.00) X 10*3/uL Eosinophils # 0.49 H (0.04-0.35) X 10*3/uL Sodium 148 H (137-145) mmol/L Chloride 120 H (98-107) mmol/L Carbon Dioxide 17 L (22-30) mmol/L Procalcitonin 0.77 H (0.02-0.50) ng/mL Microbiology - Last 24 Hours (Table) 10/17/24 19:30 Blood Culture - Preliminary Blood Assessment and Plan Assessment: Stage II sacral pressure ulcer with suspected infection Possible aspiration pneumonia Metabolic/toxic encephalopathy Hypernatremia, improving Acute kidney injury Parkinson disease, patient has resting tremor in his right hand and generalized stiffness, he is not taking his medication with nonadherence to medication 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 Adjust as per sodium level Consult nephrology team Labs and medication were reviewed.. Continue same treatment. Continue with symptomatic treatment. Resume home medication. Monitor labs and vitals. DVT and GI prophylaxis. Further recommendations as per clinical course of the patient DVT prophylaxis: Subcutaneous heparin GI Prophylaxis: Pepcid Prognosis is guarded Hospice consult was placed in the emergency room, family still wants to talk to hospice team
[2024-10-20 10:00] LABS: BUN/Creat Ratio 11.68 Ratio (12.00-20.00); Blood Urea Nitrogen 73.6 mg/dL (9.0-27.0); Calcium 8.7 mg/dL (8.7-10.3); Carbon Dioxide 18.1 mmol/L (21.6-31.8); Chloride 119 mmol/L (96-109); Glucose 137 mg/dL (70-110); Potassium 3.9 mmol/L (3.5-5.5); Sodium 151 mmol/L (135-145)
--- NOTE | 2024-10-20 13:08 | P.PN ---
Subjective Progress Note Date: 10/20/24 Patient seen for follow-up of ELIJAH and hypernatremia. He continues to have Davenport catheter in place. Today serum creatinine has elevated to 6.3, sodium is decreased to 151. Patient still unable to respond appropriately. EEG being completed during visit. Objective - Vital Signs Vital signs: Vital Signs Temp 99.2 F 10/20/24 08:00 Pulse 85 10/20/24 08:00 Resp 18 10/20/24 08:00 BP 156/80 10/20/24 08:00 Pulse Ox 97 10/20/24 08:00 FiO2 Intake & Output 10/19/24 10/20/24 10/20/24 18:59 06:59 18:59 Intake Total 275 Output Total 150 Balance 275 -150 Intake: Intake, IV Titration 275 Amount DAPTOmycin 325 mg In 50 Sodium Chloride 0.9% 50 ml @ 100 mls/hr IVPB Q48H [facility] Rx#:[id number] Dextrose 5% in Water 1, 200 000 ml @ 100 mls/hr IV . Q10H [facility] Rx#:[id number] Piperacillin-Tazobactam 3 25 .375 gm In Sodium Chloride 0.9% 100 ml @ 25 mls/hr IVPB Q12H [facility] Rx# :[id number] Output: Urine 150 Other: Voiding Method Indwelling Catheter Indwelling Catheter Indwelling Catheter - Exam Patient is confused, not following commands Examination of the heart S1 and S2 Examination of the lungs bilateral breath sounds are heard Abdomen is soft nontender Examination of lower extremities shows chronic skin changes no significant edema. CHANGE MANAGEMENT SPECIALIST exam with stiffness, with resting tremor, resisting eye opening - Labs CBC & Chem 7: 10/20/24 04:06 10/22/24 05:10 Labs: Abnormal Lab Results - Last 24 Hours (Table) 10/19/24 10/19/24 10/20/24 Range/Units 04:21 18:09 04:06 RBC 3.61 L (4.40-5.60) X 10*6/uL Hgb 10.5 L (13.0-17.0) g/dL Hct 35.1 L (39.6-50.0) % MCV 97.2 H (80.0-97.0) FL MCHC 29.9 L (32.0-37.0) g/dL RDW 15.5 H (11.5-14.5) % Plt Count 126 L (140-440) X 10*3/uL Immature Gran # 0.05 H (0.00-0.04) X 10*3/uL Lymphocytes # 0.81 L (0.90-5.00) X 10*3/uL Monocytes # 1.02 H (0.20-1.00) X 10*3/uL Eosinophils # 0.49 H (0.04-0.35) X 10*3/uL Sodium 148 H (137-145) mmol/L Chloride 120 H (98-107) mmol/L Carbon Dioxide 17 L (22-30) mmol/L Procalcitonin 0.77 H (0.02-0.50) ng/mL Microbiology - Last 24 Hours (Table) 10/17/24 19:30 Blood Culture - Preliminary Blood Assessment and Plan Assessment: 1. Acute kidney injury most likely ATN. Vancomycin toxicity versus hypotension. Significantly increased creatinine 3.97 on admission, 6.3 today with previous creatinine 0.6 on 10/06/2024. UA significant for protein, blood, RBCs. Vancomycin trough elevated at 50.6 on 10/12, random vancomycin this visit 26.5. 2. 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 3. Hypovolemic hypernatremia associated with acute kidney injury. 4. Metabolic acidosis with anion gap likely from CKD, initial bicarb 13, impr oving 5. Sacral ulcer stage II on buttock 6. Parkinson's disease 7. HTN Plan: Currently with indwelling catheter for incontinence, no obstruction noted Ultrasound of kidneys interpreted as severe right hydronephrosis with cortical thinning Increase D5W at 150 cc/h Check BMP in morning, check sodium and lytes this afternoon. We will continue to follow this patient during his stay. Agree with resident's findings assessment and plan.
--- NOTE | 2024-10-20 16:20 | P.PN ---
Subjective Progress Note Date: 10/20/24 Principal diagnosis: Reason for follow-up is pneumonia infected sacral pressure ulcer Patient is a 63-year-old male with a past medical history significant for hypertension Parkinson's recent admission to the hospital for aspiration pneumonia and also have infected sacral pressure ulcer culture positive for MRSA and Pseudomonas treated with the cefepime vancomycin initially that was transitioned to daptomycin in the outpatient setting has been brought back to the hospital concerning for mental status changes unresponsiveness and there was a question of pneumonia. On today's evaluation that is 10/20/2024, Patient is afebrile this morning patient is breathing comfortably currently on room air patient remains to be unresponsive did not answer any question no vomiting diarrhea and the changes reported by the nursing staff. Patient white count 7.72, creatinine 6.3 blood pressure has been negative so far Objective - Vital Signs Vital signs: Vital Signs Temp 99.2 F 10/20/24 13:09 Pulse 75 10/20/24 13:09 Resp 16 10/20/24 13:09 BP 153/84 10/20/24 13:09 Pulse Ox 97 10/20/24 13:09 FiO2 Intake & Output 10/19/24 10/20/24 10/20/24 18:59 06:59 18:59 Intake Total 275 Output Total 150 Balance 275 -150 Intake: Intake, IV Titration 275 Amount DAPTOmycin 325 mg In 50 Sodium Chloride 0.9% 50 ml @ 100 mls/hr IVPB Q48H TRIP Rx#:[id number] Dextrose 5% in Water 1, 200 000 ml @ 100 mls/hr IV . Q10H TRIP Rx#:[id number] Piperacillin-Tazobactam 3 25 .375 gm In Sodium Chloride 0.9% 100 ml @ 25 mls/hr IVPB Q12H TRIP Rx# :[id number] Output: Urine 150 Other: Voiding Method Indwelling Catheter Indwelling Catheter Indwelling Catheter - Exam GENERAL DESCRIPTION: An elderly male lying in bed in no distress RESPIRATORY SYSTEM: Unlabored breathing , decreased breath sounds at bases HEART: S1 S2 regular rate and rhythm , ABDOMEN: Soft , no tenderness EXTREMITIES: No edema feet - Labs CBC & Chem 7: 10/20/24 04:06 10/20/24 04:06 Labs: Abnormal Lab Results - Last 24 Hours (Table) 10/19/24 10/20/24 10/20/24 Range/Units 18:09 04:06 04:06 RBC 3.61 L (4.40-5.60) X 10*6/uL Hgb 10.5 L (13.0-17.0) g/dL Hct 35.1 L (39.6-50.0) % MCV 97.2 H (80.0-97.0) FL MCHC 29.9 L (32.0-37.0) g/dL RDW 15.5 H (11.5-14.5) % Plt Count 126 L (140-440) X 10*3/uL Immature Gran # 0.05 H (0.00-0.04) X 10*3/uL Lymphocytes # 0.81 L (0.90-5.00) X 10*3/uL Monocytes # 1.02 H (0.20-1.00) X 10*3/uL Eosinophils # 0.49 H (0.04-0.35) X 10*3/uL Sodium 148 H 151 H (137-145) mmol/L Chloride 120 H 119 H (98-107) mmol/L Carbon Dioxide 17 L 18.1 L (22-30) mmol/L Anion Gap 13.90 H (4.00-12.00) mmol/L BUN 73.6 H (9.0-27.0) mg/dL Creatinine 6.3 H (0.6-1.5) mg/dL Est GFR (CKD-EPI) 9 L (>=60) BUN/Creatinine Ratio 11.68 L (12.00-20.00) Ratio Glucose 137 H (70-110) mg/dL Microbiology - Last 24 Hours (Table) 10/17/24 19:30 Blood Culture - Preliminary Blood Assessment and Plan (1) Pneumonia Current Visit: Yes Status: Acute Code(s): J18.9 - PNEUMONIA, UNSPECIFIED O RGANISM SNOMED Code(s): 788224460 (2) Stage III pressure ulcer of sacral region Current Visit: No Status: Acute Code(s): L89.153 - PRESSURE ULCER OF SACRAL REGION, STAGE 3 SNOMED Code(s): 46629072115368 Plan: 1patient presenting to the hospital with mental status changes decreased level of responsiveness and confusion which is likely multifactorial patient did have evidence of worsening kidney function and uremia could be contributing to it however patient has been on cefepime which can cause mental status changes and confusion. 2possible pneumonia on the chest x-ray keeping in mind the long term resident with confusion underlying aspiration and gram-negative pneumonia not entirely excluded 3patient is afebrile white count has been normal he did have worsening of his kidney function being monitored by nephrology 4patient will be treated with daptomycin and Zosyn along with local wound care with Santyl and monitor clinical course closely Dictation was produced using [employer] dictation software. please excuse any grammatical, word or spelling errors. Time with Patient: Less than 30
[2024-10-20 19:09] LABS: Potassium 3.5 mmol/L (3.5-5.1)
[2024-10-20] MEDS: HEPARIN SODIUM,PORCINE 5,000 UNIT/ML 1 ML VIAL SQ SCH (20:17)
[2024-10-20] MEDS: FAMOTIDINE 20 MG/2 ML VIAL IV SCH (20:17)
--- NOTE | 2024-10-20 23:56 | EEG ---
ELECTROENCEPHALOGRAM REPORT PREAMBLE: This is a 63-year-old male with altered mental status. EEG FINDINGS: This is a 21-channel digital EEG recorded with video component, utilizing 10/20 international system with referential and bipolar montages. Background consists of moderately well-developed, poorly regulated, mixed frequencies of diffuse 4 to 5 hertz theta, intermixed with some 1 to 2 hertz delta activity in bihemispheric region. Background does not seem to be reactive to eye opening and closing. Very frequent myogenic artifact from underlying tremors was seen intermittently, mostly involving the right temporal region, but sometimes left and sometimes bitemporal region. Different stages of sleep were not seen. No focal or generalized epileptiform activity was seen. IMPRESSION: This is an abnormal EEG due to background slowing of moderate to severe degree. This is suggestive of generalized cerebral dysfunction as can be seen with toxic metabolic encephalopathy or related to diffuse structural brain abnormality. Clinical correlation is recommended. Intermittent myogenic artifacts were seen in the right or left or bitemporal region during the study from underlying tremor. No epileptiform activity was seen. MMODL / IJN: [id number] /
[2024-10-21] MEDS: atenoloL 25 MG TAB PO SCH (04:53)
[2024-10-21 09:29] LABS: BUN/Creat Ratio 20.42 Ratio (12.00-20.00); Blood Urea Nitrogen 24.5 mg/dL (9.0-27.0); Calcium 8.3 mg/dL (8.7-10.3); Carbon Dioxide 21.3 mmol/L (21.6-31.8); Chloride 106 mmol/L (96-109); Glucose 156 mg/dL (70-110); Sodium 138 mmol/L (135-145)
--- NOTE | 2024-10-21 09:43 | P.PN ---
Subjective Progress Note Date: 10/21/24 Patient seen for follow-up of ELIJAH and hypernatremia. He continues to have Davenport catheter in place. Today serum creatinine has improved to 1.2, sodium is decreased to 138. Patient still unable to respond appropriately, however is more alert today. Objective - Vital Signs Vital signs: Vital Signs Temp 98.4 F 10/21/24 08:00 Pulse 64 10/21/24 08:00 Resp 14 10/21/24 08:00 BP 119/66 10/21/24 08:00 Pulse Ox 98 10/21/24 08:00 FiO2 Intake & Output 10/20/24 10/21/24 10/21/24 18:59 06:59 18:59 Output Total 650 400 Balance -650 -400 Output: Urine 650 400 Other: Voiding Method Indwelling Catheter Indwelling Catheter Indwelling Catheter - Exam Improved alertness, confused, not following commands Examination of the heart S1 and S2 Examination of the lungs bilateral breath sounds are heard Abdomen is soft nontender Examination of lower extremities shows chronic skin changes no significant edema. RN RENAL exam with stiffness, with resting tremor - Labs CBC & Chem 7: 10/20/24 04:06 10/21/24 04:29 Labs: Abnormal Lab Results - Last 24 Hours (Table) 10/20/24 10/20/24 10/20/24 Range/Units 04:06 04:06 18:41 RBC 3.61 L (4.40-5.60) X 10*6/uL Hgb 10.5 L (13.0-17.0) g/dL Hct 35.1 L (39.6-50.0) % MCV 97.2 H (80.0-97.0) FL MCHC 29.9 L (32.0-37.0) g/dL RDW 15.5 H (11.5-14.5) % Plt Count 126 L (140-440) X 10*3/uL Immature Gran # 0.05 H (0.00-0.04) X 10*3/uL Lymphocytes # 0.81 L (0.90-5.00) X 10*3/uL Monocytes # 1.02 H (0.20-1.00) X 10*3/uL Eosinophils # 0.49 H (0.04-0.35) X 10*3/uL Sodium 151 H (135-145) mmol/L Chloride 119 H 113 H (96-109) mmol/L Carbon Dioxide 18.1 L 16 L (21.6-31.8) mmol/L Anion Gap 13.90 H (4.00-12.00) mmol/L BUN 73.6 H (9.0-27.0) mg/dL Creatinine 6.3 H (0.6-1.5) mg/dL Est GFR (CKD-EPI) 9 L (>=60) BUN/Creatinine Ratio 11.68 L (12.00-20.00) Ratio Glucose 137 H (70-110) mg/dL Microbiology - Last 24 Hours (Table) 10/17/24 19:30 Blood Culture - Preliminary Blood Assessment and Plan Assessment: 1. Acute kidney injury most likely ATN. Vancomycin toxicity versus hypotension. Significantly increased creatinine 3.97 on admission, 1.2 today with previous creatinine 0.6 on 10/06/2024. UA significant for protein, blood, RBCs. Vancomycin trough elevated at 50.6 on 10/12, random vancomycin this visit 26.5. Ultrasound of kidneys interpreted as severe right hydronephrosis with cortical thinning. This is chronic with a nonfunctioning right kidney 2. 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 3. Hypovolemic hypernatremia associated with acute kidney injury, Improved 4. Metabolic acidosis with anion gap likely from CKD, initial bicarb 13, improving 5. Sacral ulcer stage II on buttock 6. Parkinson's disease 7. HTN with CKD stage I Plan: Currently with indwelling catheter for incontinence, no obstruction noted DC D5W Begin IV NS at 70 mL/hour Check BMP in morning. We will continue to follow this patient during his stay. Patient is seen and examined. Agree with resident's findings, assessment and plan.
[2024-10-21] MEDS: SODIUM CHLORIDE 0.9% 1,000 ML IV SCH (12:07)
--- NOTE | 2024-10-21 12:19 | P.PN ---
Subjective Progress Note Date: 10/21/24 Principal diagnosis: Reason for follow-up is pneumonia infected sacral pressure ulcer Patient is a 63-year-old male with a past medical history significant for hypertension Parkinson's recent admission to the hospital for aspiration pneumonia and also have infected sacral pressure ulcer culture positive for MRSA and Pseudomonas treated with the cefepime vancomycin initially that was transitioned to daptomycin in the outpatient setting has been brought back to the hospital concerning for mental status changes unresponsiveness and there was a question of pneumonia. On today's evaluation that is 10/21/2024,the patient remains to be afebrile he is breathing comfortably is currently on room air he did respond to his name today no vomiting diarrhea and the changes reported by the nursing staff. Patient did have normalization of his creatinine to 1.2. Cultures are currently pending Objective - Vital Signs Vital signs: Vital Signs Temp 98.4 F 10/21/24 08:00 Pulse 64 10/21/24 08:00 Resp 14 10/21/24 08:00 BP 119/66 10/21/24 08:00 Pulse Ox 98 10/21/24 08:00 FiO2 Intake & Output 10/20/24 10/21/24 10/21/24 18:59 06:59 18:59 Output Total 650 400 Balance -650 -400 Output: Urine 650 400 Other: Voiding Method Indwelling Catheter Indwelling Catheter Indwelling Catheter - Exam GENERAL DESCRIPTION: An elderly male lying in bed in no distress RESPIRATORY SYSTEM: Unlabored breathing , decreased breath sounds at bases HEART: S1 S2 regular rate and rhythm , ABDOMEN: Soft , no tenderness EXTREMITIES: No edema feet - Labs CBC & Chem 7: 10/20/24 04:06 10/21/24 04:29 Labs: Abnormal Lab Results - Last 24 Hours (Table) 10/20/24 10/21/24 Range/Units 18:41 04:29 Chloride 113 H (98-107) mmol/L Carbon Dioxide 16 L 21.3 L (22-30) mmol/L BUN/Creatinine Ratio 20.42 H (12.00-20.00) Ratio Glucose 156 H (70-110) mg/dL Calcium 8.3 L (8.7-10.3) mg/dL Microbiology - Last 24 Hours (Table) 10/17/24 19:30 Blood Culture - Preliminary Blood Assessment and Plan (1) Pneumonia Current Visit: Yes Status: Acute Code(s): J18.9 - PNEUMONIA, UNSPECIFIED ORGANISM SNOMED Code(s): 079372819 (2) Stage III pressure ulcer of sacral region Current Visit: No Status: Acute Code(s): L89.153 - PRESSURE ULCER OF SACRAL REGION, STAGE 3 SNOMED Code(s): 03638195840445 Plan: 1patient presenting to the hospital with mental status changes decreased level of responsiveness and confusion which is likely multifactorial patient did have evidence of worsening kidney function and uremia could be contributing to it however patient has been on cefepime which can cause mental status changes and confusion. 2possible pneumonia on the chest x-ray keeping in mind the half-way resident with confusion underlying aspiration and gram-negative pneumonia not entirely excluded 3patient is afebrile white count has been normal, noticed to have normalization of his kidney function questionable factitious 4patient currently being treated with daptomycin and Zosyn along with local wound care with Santyl and continue supportive care Dictation was produced using [employer] dictation software. please excuse any grammatical, word or spelling errors. Time with Patient: Less than 30
--- NOTE | 2024-10-21 12:34 | P.PN ---
Subjective Progress Note Date: 10/20/24 Patient was seen for follow-up. Patient is sleeping at this time. Continues to have intermittent tremors of the extremities as yesterday. Objective - Vital Signs Vital signs: Vital Signs Temp 99.2 F 10/20/24 13:09 Pulse 75 10/20/24 13:09 Resp 16 10/20/24 13:09 BP 153/84 10/20/24 13:09 Pulse Ox 97 10/20/24 13:09 FiO2 Intake & Output 10/20/24 10/20/24 10/21/24 06:59 18:59 06:59 Output Total 150 650 Balance -150 -650 Output: Urine 150 650 Other: Voiding Method Indwelling Catheter Indwelling Catheter - Exam Unchanged. - Labs CBC & Chem 7: 10/20/24 04:06 10/21/24 04:29 Labs: Abnormal Lab Results - Last 24 Hours (Table) 10/20/24 10/20/24 10/20/24 Range/Units 04:06 04:06 18:41 RBC 3.61 L (4.40-5.60) X 10*6/uL Hgb 10.5 L (13.0-17.0) g/dL Hct 35.1 L (39.6-50.0) % MCV 97.2 H (80.0-97.0) FL MCHC 29.9 L (32.0-37.0) g/dL RDW 15.5 H (11.5-14.5) % Plt Count 126 L (140-440) X 10*3/uL Immature Gran # 0.05 H (0.00-0.04) X 10*3/uL Lymphocytes # 0.81 L (0.90-5.00) X 10*3/uL Monocytes # 1.02 H (0.20-1.00) X 10*3/uL Eosinophils # 0.49 H (0.04-0.35) X 10*3/uL Sodium 151 H (135-145) mmol/L Chloride 119 H 113 H (96-109) mmol/L Carbon Dioxide 18.1 L 16 L (21.6-31.8) mmol/L Anion Gap 13.90 H (4.00-12.00) mmol/L BUN 73.6 H (9.0-27.0) mg/dL Creatinine 6.3 H (0.6-1.5) mg/dL Est GFR (CKD-EPI) 9 L (>=60) BUN/Creatinine Ratio 11.68 L (12.00-20.00) Ratio Glucose 137 H (70-110) mg/dL Microbiology - Last 24 Hours (Table) 10/17/24 19:30 Blood Culture - Preliminary Blood Assessment and Plan Assessment: * Altered mental status, likely due to toxic metabolic encephalopathy * Rule out sepsis/pneumonia * Stage III pressure ulcer of sacral region * Failure to thrive * Hypernatremia * Acute kidney injury, worsening * Advanced Parkinson's * Dementia, severe degree * Hydronephrosis with cortical thinning Plan: * Patient has advanced dementia and advanced Parkinson's. He has superimposed severe toxic metabolic encephalopathy due to reasons mentioned above. * EEG was performed, which was abnormal due to background slowing of moderate to severe degree. This is suggestive of generalized cerebral dysfunction as can be seen with toxic metabolic encephalopathy or related to diffuse structural brain abnormality. Clinical correlation is recommended. Intermittent myogenic artifacts were seen in the right or left or bitemporal region during the study from underlying tremor. No epileptiform activity was seen. * Treatment of various metabolic/medical conditions (as mentioned above) as per IM and other specialties on board. * Patient currently on Zosyn and daptomycin. ID on board.
[2024-10-21] MEDS: PIPERACILLIN-TAZOBACTAM 3.375 GM in SODIUM CHLORIDE 0.9% 100 ML IVPB SCH (15:44)
[2024-10-21 17:09] VITALS: BMI 28.0
--- NOTE | 2024-10-21 22:27 | XR ---
EXAM: XR Chest, 1 View CLINICAL HISTORY: ITS.REASON XR Reason: NG tube placement TECHNIQUE: Frontal view of the chest. COMPARISON: No relevant prior studies available. FINDINGS: Lungs: Evaluation of the lungs is limited by incomplete occlusion in obliquity, in addition to overlying the left upper extremity artifact. No obvious focal consolidation. Heart: Grossly unremarkable. Mediastinum: Limited. Bones/joints: Unremarkable. No acute fracture. Tubes, lines and devices: The nasogastric tube across the midline in the epigastrium and is noted in the right upper quadrant. IMPRESSION: The nasogastric tube across the midline in the epigastrium and is noted in the right upper quadrant. The tip is presumed near the pyloric channel or proximal duodenum. The tube may be retracted 2-3 cm to avoid inadvertent extension into the duodenum.
[2024-10-22 00:02] LABS: Glucose,Whole Blood 72 mg/dL (70-110)
[2024-10-22] MEDS: DEXTROSE 5%-0.9% NACL 1,000 ML IV SCH (01:15)
[2024-10-22 04:08] LABS: Glucose,Whole Blood 94 mg/dL (70-110)
--- NOTE | 2024-10-22 05:57 | P.PN ---
Subjective Progress Note Date: 10/21/24 This is a pleasant 63 years old male on 10/01 who was recently discharged from this facility for pressure ulcer stage II on IV vancomycin and cefepime. Currently [facility] for being [facility]aphoretic for 2 days with pressure ulcers on the buttock. Patient cannot provide information , He does not answer questions. He keeps his eye closed and resists opening them, he has a resting tremor, pill rolling tremor in his right hand, he has stiff both upper and lower extremities. Pupils are equal and reactive to light. He has stage II pressure ulcer with some pinkish discoloration, no purulent discharge He has right arm PICC line, he is on IV daptomycin from [facility] started on 10/16 till 10/27 Patient afebrile blood pressure stable WBCs 10.8, hemoglobin 11.5, sodium elevated 151, creatinine 3.9, previously was 1.7 and it was 2, I reviewed the chest x-ray myself .7. Chest x-ray: Airspace opacity projecting the spine correlate for pneumonia per radiologist, I reviewed chest x-ray myself, no significant consolidation, including symmetrical no pleural effusion. 10/19 Patient still confused, does not answer questions. He has pill rolling tremor, yesterday was in his right hand and today in his left hand, he has generalized stiffness most likely related to his Parkinson disease, patient has been confused for the last 3 to 4 days and he was not taking his Parkinson medication, the suspicion of seizure is low however he received Ativan yesterday. CT of the brain was negative neurology service consulted already Also has been treated for sepsis suspected for pressure ulcers also there is suspicion of aspiration pneumonia and currently has been covered with Zosyn. Looks like emergency room team consulted hospice, yesterday after rounding bedside nurse called me stating patient family requesting to talk to hospice team. We are going to talk to family and if they agreeable with going to place NG tube to start his Parkinson medication and other oral medication His hypernatremia and creatinine are trending up. NG tube placed can help also with water flushes He is continued on D5 W at 75 mL/h and dose increased today to 100 mL/h. 10/20 Patient still nonverbal Head of bed at 45 degree NG tube in place Patient is started on water flushes. Also resumed some of his oral medications through NG tube like metoprolol 25 mg as patient blood pressure and heart rate were elevated. No diarrhea. Nutrition consult called for tube feeding Family met with hospice team yesterday per their request, they opted to continue with medical management. No hospice 10/21/2024 Patient is seen in follow-up and mentation is back to baseline. Patient is mostly nonverbal although will say some things per nursing staff. Patient continues with NG tube at this time. Patient is high risk for aspiration and maintained on aspiration precautions. Patient continues on IV antibiotics per ID recommendation. Kidney functions were elevated although significantly improved with concerns of possible error in labs. Patient will need updated PT/OT therapy notes with plans on returning to [facility] once stabilized. Review of systems: Unable to assess as patient is nonverbal Physical exam: -GENERAL: The patient is more awake and alert today although continues with confusion and mostly nonverbal, continued jerking movements likely related to his Parkinson disease, ill-appearing, elderly appearing HEENT: Pupils are round and equally reacting to light. EOMI. No scleral icterus. No conjunctival pallor. Normocephalic, atraumatic. No pharyngeal erythema. No thyromegaly. CARDIOVASCULAR: S1 and S2 muffled s. PULMONARY: Diminished breath sounds bilaterally otherwise chest is clear to au scultation, no wheezing , no crackles. ABDOMEN: Soft, nontender, nondistended, normoactive bowel sounds. No palpable organomegaly. MUSCULOSKELETAL: No joint swelling or deformity. EXTREMITIES: No cyanosis, clubbing, or pedal edema. NEUROLOGICAL: Continues to be somewhat confused, although is opening eyes and saying some things per nursing staff, he has resting tremor of the right and left hands, he follows some certain commands like squeezing the hands SKIN: No rashes. no petechiae. Assessment: Stage II sacral pressure ulcer with suspected infection, present on admission, cultures pending Possible aspiration pneumonia Metabolic/toxic encephalopathy Hypernatremia, improving Acute kidney injury Parkinson disease, patient has resting tremor in his right hand and generalized stiffness, he is not taking his medication with nonadherence to medication, has a stimulator Congenital UPJ with nonfunctioning right kidney and chronic right hydronephrosis, no need for any intervention per urologist recently evaluated him during last admission Hypertension Hyperlipidemia GI prophylaxis DVT prophylaxis No code Plan: Continue with Zosyn and daptomycin with infectious disease following. Cultures are pending at this time Neurology evaluated the patient recommending MRI and power of health care attorney did turn off stimulator device although per nursing staff our MRI department reports they are unable to perform an MRI Resume home medication, continue with NG tube for now Patient with significant improvement in kidney functions concerns for error in previous lab value as creatinine was up above 5. Continue gentle hydration and will follow-up with repeat labs The impression and plan of care has been dictated by Maye Johnson, Nurse Practitioner as directed. Dr. Frank MD I have performed a history and examination and MDM of this patient, discussed the same with the dictator, and agree with the dictator's assessment and plan as written ,documented as a scribe. Based on total visit time, I have performed more than 50% of the visit. Objective - Vital Signs Vital signs: Vital Signs Temp 98.4 F 10/21/24 08:00 Pulse 64 10/21/24 08:00 Resp 14 10/21/24 08:00 BP 119/66 10/21/24 08:00 Pulse Ox 98 10/21/24 08:00 FiO2 Intake & Output 10/20/24 10/21/24 10/21/24 18:59 06:59 18:59 Output Total 650 400 Balance -650 -400 Output: Urine 650 400 Other: Voiding Method Indwelling Catheter Indwelling Catheter Indwelling Catheter - Labs CBC & Chem 7: 10/20/24 04:06 10/21/24 04:29 Labs: Abnormal Lab Results - Last 24 Hours (Table) 10/20/24 10/21/24 Range/Units 18:41 04:29 Chloride 113 H (98-107) mmol/L Carbon Dioxide 16 L 21.3 L (22-30) mmol/L BUN/Creatinine Ratio 20.42 H (12.00-20.00) Ratio Glucose 156 H (70-110) mg/dL Calcium 8.3 L (8.7-10.3) mg/dL Microbiology - Last 24 Hours (Table) 10/17/24 19:30 Blood Culture - Preliminary Blood
--- NOTE | 2024-10-22 09:14 | CDI ---
Documentation Clarification Form Date: 10/22/2024 08:40:21 AM From: Alida Scott RN CCDS Phone: [phone] Admit Date: 10/17/2024 10:36:00 PM Patient Name: Chris Burkett Visit Number: [id number] Discharge Date: ATTENTION: The Clinical Documentation Specialists (CDI) and [facility] Coding Staff appreciate your assistance in clarifying documentation. Please respond to the clarification below the line at the bottom and electronically sign. The CDI & [facility] Coding staff will review the response and follow-up if needed. Please note: Queries are made part of the Legal Health Record. If you have any questions, please contact the author of this message via ITS. Provider: Maye BARRAZA Conflicting documentation has been found in the medical record. As attending physician, please provide clarification. Stage II sacral pressure ulcer, HP and Medicine notes 10/18 10/21 Stage III sacral pressure ulcer, ID consult and notes 10/19 10/21 History/Risk Factors: 63 year old male presents to the ED from [facility] for being diaphoretic for two days with pressure ulcers on the buttock. Was discharged recently from hospital for pressure ulcer stage 2 on IV Vancomycin and Cefepime. Medical History: Clinical Indicators: HP, 10/18: He has stage II pressure ulcer with some pinkish discoloration. ID Consult, 10/18: Patient did have a stage III sacral pressure ulcer which has decreased in size with minimal slough tissue no surrounding redness. Nursing Pressure Injury Assessment 10/17: Stage 2 Sacrum wound Length/cm 2.2, Width/cm 6, Depth/cm 0.2, Granulation 51-75%, Granulation Quality Mildred, Necrosis amount 1-25%, Necrosis type Adherent Slough, Wound margins distinct, Drainage yellow, Drainage amount scant, Treatment: Foam with border, Saline moist gauze, Turn Q2H, Absorbent pad check Q1H Please clarify which diagnosis is most appropriate: [ ] Stage II Sacral Pressure Ulcer [ x ] Stage III Sacral Pressure Ulcer [ ] Other (please specify) [ ] Unable to determine (Template Last Revised: October 2020) MTDD
[2024-10-22 09:41] LABS: BUN/Creat Ratio 10.31 Ratio (12.00-20.00); Blood Urea Nitrogen 70.1 mg/dL (9.0-27.0); Calcium 7.7 mg/dL (8.7-10.3); Carbon Dioxide 17.2 mmol/L (21.6-31.8); Chloride 112 mmol/L (96-109); Glucose 87 mg/dL (70-110); Potassium 3.9 mmol/L (3.5-5.5); Sodium 144 mmol/L (135-145)
--- NOTE | 2024-10-22 10:00 | P.PN ---
Subjective Progress Note Date: 10/21/24 Patient was seen for follow-up. Patient is sleeping at this time. Continues to have intermittent tremors of the extremities as yesterday. Objective - Vital Signs Vital signs: Vital Signs Temp 98.3 F 10/21/24 20:00 Pulse 71 10/21/24 20:00 Resp 16 10/21/24 20:00 BP 161/78 10/21/24 20:00 Pulse Ox 98 10/21/24 20:00 FiO2 Intake & Output 10/21/24 10/21/24 10/22/24 06:59 18:59 06:59 Output Total 400 450 Balance -400 -450 Weight 78.925 kg Output: Urine 400 450 Other: Voiding Method Indwelling Catheter Indwelling Catheter # Bowel Movements 1 - Exam Patient was sleeping. Patient's tone is severely increased bilaterally. On waking up, the tremor starts. - Labs CBC & Chem 7: 10/20/24 04:06 10/22/24 05:10 Labs: Abnormal Lab Results - Last 24 Hours (Table) 10/21/24 Range/Units 04:29 Carbon Dioxide 21.3 L (21.6-31.8) mmol/L BUN/Creatinine Ratio 20.42 H (12.00-20.00) Ratio Glucose 156 H (70-110) mg/dL Calcium 8.3 L (8.7-10.3) mg/dL Microbiology - Last 24 Hours (Table) 10/17/24 19:30 Blood Culture - Preliminary Blood Assessment and Plan Assessment: * Altered mental status, likely due to toxic metabolic encephalopathy * Rule out sepsis/pneumonia * Stage III pressure ulcer of sacral region * Failure to thrive * Hypernatremia, resolved * Acute kidney injury, worsening * Advanced Parkinson's, history of DBS placement * Dementia, severe degree * Hydronephrosis with cortical thinning Plan: * Patient has advanced dementia and advanced Parkinson's. He has superimposed severe toxic metabolic encephalopathy due to reasons mentioned above. * EEG was performed, which was abnormal due to background slowing of moderate to severe degree. This is suggestive of generalized cerebral dysfunction as can be seen with toxic metabolic encephalopathy or related to diffuse structural brain abnormality. Clinical correlation is recommended. Intermittent myogenic artifacts were seen in the right or left or bitemporal region during the study from underlying tremor. No epileptiform activity was seen. * Treatment of various metabolic/medical conditions (as mentioned above) as per IM and other specialties on board. * Patient currently on Zosyn and daptomycin. ID on board. * Patient currently on Sinemet 25/100, 3 times daily. * Prognosis very guarded. Consider palliative care. Patient is no CODE STATUS.
[2024-10-22] MEDS: DAPTOMYCIN IVPB SCH (10:22)
[2024-10-22] MEDS: SODIUM CHLORIDE 0.9% IVPB SCH (10:22)
[2024-10-22] MEDS ORDERED: ONDANSETRON 4 MG/2 ML VIAL IVP PRN (11:36)
--- NOTE | 2024-10-22 11:44 | P.PN ---
Subjective Progress Note Date: 10/22/24 Patient seen for follow-up of ELIJAH and hypernatremia. He continues to have Davenport catheter in place. Today serum creatinine has 6.8, sodium is stable at 144. Maintained on IV fluids. Patient still unable to respond appropriately, however is more alert today. Creatinine of 1.2 yesterday was likely an error Objective - Vital Signs Vital signs: Vital Signs Temp 98.4 F 10/22/24 07:40 Pulse 78 10/22/24 07:40 Resp 16 10/22/24 07:40 BP 131/74 10/22/24 07:40 Pulse Ox 100 10/22/24 07:40 FiO2 Intake & Output 10/21/24 10/22/24 10/22/24 18:59 06:59 18:59 Intake Total 500 Output Total 450 400 100 Balance -450 100 -100 Weight 78.925 kg Intake: Other 500 Output: Urine 450 400 100 Uretheral ([place]) 100 Other: Voiding Method Indwelling Catheter Indwelling Catheter Indwelling Catheter # Bowel Movements 1 1 - Exam Improved alertness, confused, not following commands Examination of the heart S1 and S2 Examination of the lungs bilateral breath sounds are heard Abdomen is soft nontender Examination of lower extremities shows chronic skin changes no significant edema. 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 Acute kidney injury most likely ATN. Vancomycin toxicity versus hypotension. Significantly increased creatinine 3.97 on admission, 6.8 today with previous creatinine 0.6 on 10/06/2024. UA significant for protein, blood, RB Cs. Vancomycin trough elevated at 50.6 on 10/12, random vancomycin this visit 26.5. Ultrasound of kidneys interpreted as severe right hydronephrosis with cortical thinning. This is chronic with a nonfunctioning right kidney 2. 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 3. Hypovolemic hypernatremia associated with acute kidney injury, Improved 4. Metabolic acidosis with anion gap likely from CKD, initial bicarb 13, improving 5. Sacral ulcer stage II on buttock 6. Parkinson's disease 7. HTN with CKD stage I Plan: Currently with indwelling catheter for incontinence, no obstruction noted Add bicarb drip. Need to consider CHEST PAINTING LEADER if aggressive care is desired. Mentation may improve with dialysis. Check BMP in morning. We will continue to follow this patient during his stay. Agree with resident's findings, assessment and plan.
[2024-10-22 12:15] LABS: Glucose,Whole Blood 85 mg/dL (70-110)
[2024-10-22] MEDS: DEXTROSE 5% IN WATER 1,000 ML with SODIUM BICARB (1 MEQ/ML) 100 ML IV SCH (13:52)
--- NOTE | 2024-10-22 14:34 | P.PN ---
Subjective Progress Note Date: 10/22/24 Principal diagnosis: Reason for follow-up is pneumonia infected sacral pressure ulcer Patient is a 63-year-old male with a past medical history significant for hypertension Parkinson's recent admission to the hospital for aspiration pneumonia and also have infected sacral pressure ulcer culture positive for MRSA and Pseudomonas treated with the cefepime vancomycin initially that was transitioned to daptomycin in the outpatient setting has been brought back to the hospital concerning for mental status changes unresponsiveness and there was a question of pneumonia. On today's evaluation that is 10/22/2024,the patient remains to be afebrile, patient is on room air not requiring supplemental oxygen and breathing comfortably patient is still lethargic elevated good historian no vomiting or diarrhea has been reported. Patient creatinine 6.8 blood culture has been negative so far Objective - Vital Signs Vital signs: Vital Signs Temp 98.2 F 10/22/24 11:19 Pulse 97 10/22/24 11:19 Resp 16 10/22/24 11:19 BP 141/69 10/22/24 11:19 Pulse Ox 94 L 10/22/24 11:19 FiO2 Intake & Output 10/21/24 10/22/24 10/22/24 18:59 06:59 18:59 Intake Total 500 Output Total 450 400 100 Balance -450 100 -100 Weight 78.925 kg Intake: Other 500 Output: Urine 450 400 100 Uretheral ([place]) 100 Other: Voiding Method Indwelling Catheter Indwelling Catheter Indwelling Catheter # Bowel Movements 1 1 - Exam GENERAL DESCRIPTION: An elderly male lying in bed in no distress RESPIRATORY SYSTEM: Unlabored breathing , decreased breath sounds at bases HEART: S1 S2 regular rate and rhythm , ABDOMEN: Soft , no tenderness EXTREMITIES: No edema feet - Labs CBC & Chem 7: 10/20/24 04:06 10/22/24 05:10 Labs: Abnormal Lab Results - Last 24 Hours (Table) 10/22/24 Range/Units 05:10 Chloride 112 H (96-109) mmol/L Carbon Dioxide 17.2 L (21.6-31.8) mmol/L Anion Gap 14.80 H (4.00-12.00) mmol/L BUN 70.1 H (9.0-27.0) mg/dL Creatinine 6.8 H (0.6-1.5) mg/dL Est GFR (CKD-EPI) 8 L (>=60) BUN/Creatinine Ratio 10.31 L (12.00-20.00) Ratio Calcium 7.7 L (8.7-10.3) mg/dL Microbiology - Last 24 Hours (Table) 10/17/24 19:30 Blood Culture - Preliminary Blood Assessment and Plan (1) Pneumonia Current Visit: Yes Status: Acute Code(s): J18.9 - PNEUMONIA, UNSPECIFIED ORGANISM SNOMED Code(s): 760050697 (2) Stage III pressure ulcer of sacral region Current Visit: No Status: Acute Code(s): L89.153 - PRESSURE ULCER OF SACRAL REGION, STAGE 3 SNOMED Code(s): 55586935111925 Plan: 1patient presenting to the hospital with mental status changes decreased level of responsiveness and confusion which is likely multifactorial patient did have evidence of worsening kidney function and uremia could be contributing to it however patient has been on cefepime which can cause mental status changes and confusion. 2possible pneumonia on the chest x-ray keeping in mind the [facility] resident with confusion underlying aspiration and gram-negative pneumonia not entirely excluded 3patient is afebrile white count has been normal, and blood culture pending so far 4patient to continue with daptomycin and Zosyn along with local wound care and switched over to dry Aquacel dressing as the nursing staff mention no slough tissue Dictation was produced using [employer] dictation software. please excuse any grammatical, word or spelling errors. Time with Patient: Less than 30
[2024-10-22] MEDS: PIPERACILLIN-TAZOBACTAM 3.375 GM in SODIUM CHLORIDE 0.9% 100 ML IVPB SCH (17:22)
[2024-10-22 17:24] LABS: Glucose,Whole Blood 93 mg/dL (70-110)
[2024-10-23 00:07] LABS: Glucose,Whole Blood 84 mg/dL (70-110)
--- NOTE | 2024-10-23 05:36 | P.PN ---
Subjective Progress Note Date: 10/22/24 This is a pleasant 63 years old male on 10/01 who was recently discharged from this facility for pressure ulcer stage II on IV vancomycin and cefepime. Currently he presents from detention for being diaphoretic for 2 days with pressure ulcers on the buttock. Patient cannot provide information , He does not answer questions. He keeps his eye closed and resists opening them, he has a resting tremor, pill rolling tremor in his right hand, he has stiff both upper and lower extremities. Pupils are equal and reactive to light. He has stage II pressure ulcer with some pinkish discoloration, no purulent discharge He has right arm PICC line, he is on IV daptomycin from detention started on 10/16 till 10/27 Patient afebrile blood pressure stable WBCs 10.8, hemoglobin 11.5, sodium elevated 151, creatinine 3.9, previously was 1.7 and it was 2, I reviewed the chest x-ray myself .7. Chest x-ray: Airspace opacity projecting the spine correlate for pneumonia per radiologist, I reviewed chest x-ray myself, no significant consolidation, including symmetrical no pleural effusion. 10/19 Patient still confused, does not answer questions. He has pill rolling tremor, yesterday was in his right hand and today in his left hand, he has generalized stiffness most likely related to his Parkinson disease, patient has been confused for the last 3 to 4 days and he was not taking his Parkinson medication, the suspicion of seizure is low however he received Ativan yesterday. CT of the brain was negative neurology service consulted already Also has been treated for sepsis suspected for pressure ulcers also there is suspicion of aspiration pneumonia and currently has been covered with Zosyn. Looks like emergency room team consulted hospice, yesterday after rounding bedside nurse called me stating patient family requesting to talk to hospice team. We are going to talk to family and if they agreeable with going to place NG tube to start his Parkinson medication and other oral medication His hypernatremia and creatinine are trending up. NG tube placed can help also with water flushes He is continued on D5 W at 75 mL/h and dose increased today to 100 mL/h. 10/20 Patient still nonverbal Head of bed at 45 degree NG tube in place Patient is started on water flushes. Also resumed some of his oral medications through NG tube like metoprolol 25 mg as patient blood pressure and heart rate were elevated. No diarrhea. Nutrition consult called for tube feeding Family met with hospice team yesterday per their request, they opted to continue with medical management. No hospice 10/21/2024 Patient is seen in follow-up and mentation is back to baseline. Patient is mostly nonverbal although will say some things per nursing staff. Patient continues with NG tube at this time. Patient is high risk for aspiration and maintained on aspiration precautions. Patient continues on IV antibiotics per ID recommendation. Kidney functions were elevated although significantly improved with concerns of possible error in labs. Patient will need updated PT/OT therapy notes with plans on returning to ECF once stabilized. 10/22/2024 Patient is seen in follow-up today Review of systems: Unable to assess as patient is nonverbal Physical exam: -GENERAL: The patient is more awake and alert today although continues with confusion and mostly nonverbal, continued jerking movements likely related to his Parkinson disease, ill-appearing, elderly appearing HEENT: Pupils are round and equally reacting to light. EOMI. No scleral icterus. No conjunctival pallor. Normocephalic, atraumatic. No pharyngeal erythema. No thyromegaly. CARDIOVASCULAR: S1 and S2 muffled s. PULMONARY: Diminished breath sounds bilaterally otherwise chest is clear to auscultation, no wheezing , no crackles. ABDOMEN: Soft, nontender, nondistended, normoactive bowel sounds. No palpable organomegaly. MUSCULOSKELETAL: No joint swelling or deformity. EXTREMITIES: No cyanosis, clubbing, or pedal edema. NEUROLOGICAL: Continues to be somewhat confused, although is opening eyes and saying some things per nursing staff, he has resting tremor of the right and left hands, he follows some certain commands like squeezing the hands SKIN: No rashes. no petechiae. Assessment: Stage III sacral pressure ulcer with suspected infection, present on admission, cultures pending Possible aspiration pneumonia Metabolic/toxic encephalopathy Hypernatremia, improving Acute kidney injury Parkinson disease, patient has resting tremor in his right hand and generalized stiffness, he is not taking his medication with nonadherence to medication, has a stimulator Congenital UPJ with nonfunctioning right kidney and chronic right hydr onephrosis, no need for any intervention per urologist recently evaluated him during last admission Hypertension Hyperlipidemia GI prophylaxis DVT prophylaxis No code Plan: Continue with Zosyn and daptomycin with infectious disease following. Cultures are pending at this time Neurology evaluated the patient recommending MRI and power of traffic law attorney did turn off stimulator device although per nursing staff our MRI department reports they are unable to perform an MRI, MRI was canceled at this time. Patient is more awake and talking a little more today and following commands. Resume home medication, continue with NG tube for now. Continue n.p.o. Patient with significant improvement in kidney functions concerns for error in previous lab value as creatinine was up above 5. Continue gentle hydration and will follow-up with repeat labs. Kidney functions continue to be elevated and yesterday's lab values were most definitely a lab error as creatinine is above 6 today. Discussed with nephrology regarding the possibility of renal replacement therapy and treatment plan moving forward. Will need to be discussed with power of traffic law attorney if proceeding with hemodialysis. Family have discussed the possibility of hospice informational meeting and awaiting to speak with rounding physicians regarding treatment plan The impression and plan of care has been dictated by Maye Johnson, Nurse Practitioner as directed. Dr. Frank MD I have performed a history and examination and MDM of this patient, discussed the same with the dictator, and agree with the dictator's assessment and plan as written ,documented as a scribe. Based on total visit time, I have performed more than 50% of the visit. Objective - Vital Signs Vital signs: Vital Signs Temp 98.4 F 10/22/24 07:40 Pulse 78 10/22/24 07:40 Resp 16 10/22/24 07:40 BP 131/74 10/22/24 07:40 Pulse Ox 100 10/22/24 07:40 FiO2 Intake & Output 10/21/24 10/22/24 10/22/24 18:59 06:59 18:59 Intake Total 500 Output Total 450 400 100 Balance -450 100 -100 Weight 78.925 kg Intake: Other 500 Output: Urine 450 400 100 Uretheral ([place]) 100 Other: Voiding Method Indwelling Catheter Indwelling Catheter Indwelling Catheter # Bowel Movements 1 1 - Labs CBC & Chem 7: 10/20/24 04:06 10/22/24 05:10 Labs: Abnormal Lab Results - Last 24 Hours (Table) 10/22/24 Range/Units 05:10 Chloride 112 H (96-109) mmol/L Carbon Dioxide 17.2 L (21.6-31.8) mmol/L Anion Gap 14.80 H (4.00-12.00) mmol/L BUN 70.1 H (9.0-27.0) mg/dL Creatinine 6.8 H (0.6-1.5) mg/dL Est GFR (CKD-EPI) 8 L (>=60) BUN/Creatinine Ratio 10.31 L (12.00-20.00) Ratio Calcium 7.7 L (8.7-10.3) mg/dL Microbiology - Last 24 Hours (Table) 10/17/24 19:30 Blood Culture - Preliminary Blood
[2024-10-23 05:50] LABS: Glucose,Whole Blood 105 mg/dL (70-110)
[2024-10-23] MEDS: FAMOTIDINE 20 MG/2 ML VIAL IV SCH (09:33)
[2024-10-23 10:56] LABS: BUN/Creat Ratio 9.61 Ratio (12.00-20.00); Blood Urea Nitrogen 69.2 mg/dL (9.0-27.0); Calcium 7.9 mg/dL (8.7-10.3); Carbon Dioxide 18.7 mmol/L (21.6-31.8); Chloride 110 mmol/L (96-109); Glucose 106 mg/dL (70-110); HCT 32.5 % (39.6-50.0); HGB 10.5 g/dL (13.0-17.0); MCH 28.8 pg (27.0-32.0); MCHC 32.3 g/dL (32.0-37.0); MCV 89.3 FL (80.0-97.0); Mean Platelet Volume 10.1 FL (9.5-12.2); NRBC Per 100 WBC 0 X 10*3/uL (0.00-0.01); Platelet Count 112 X 10*3/uL (140-440); Potassium 3.8 mmol/L (3.5-5.5); RBC 3.64 X 10*6/uL (4.40-5.60); RDW 14.8 % (11.5-14.5); Sodium 142 mmol/L (135-145); WBC 6.33 X 10*3/uL (4.50-10.00)
[2024-10-23 10:57] LABS: Basophils # (A) 0.08 X 10*3/uL (0.00-0.10); Basophils % (A) 1.3 %; Eosinophils # (A) 0.33 X 10*3/uL (0.04-0.35); Eosinophils % (A) 5.2 %; Lymphocytes # (A) 0.58 X 10*3/uL (0.90-5.00); Lymphocytes % (A) 9.2 %; Monocytes # (A) 0.62 X 10*3/uL (0.20-1.00); Monocytes % (A) 9.8 %; Neutrophils # (A) 4.63 X 10*3/uL (1.80-7.70); Neutrophils % (A) 73.1 %
--- NOTE | 2024-10-23 11:26 | P.PN ---
Subjective Progress Note Date: 10/22/24 Patient was seen for follow-up. Patient is sleeping at this time. I woke him up. Patient appears slightly better. Please refer to examination below. Objective - Vital Signs Vital signs: Vital Signs Temp 97.9 F 10/22/24 14:32 Pulse 76 10/22/24 14:32 Resp 16 10/22/24 14:32 BP 135/81 10/22/24 14:32 Pulse Ox 99 10/22/24 14:32 FiO2 Intake & Output 10/21/24 10/22/24 10/22/24 18:59 06:59 18:59 Intake Total 500 Output Total 450 400 700 Balance -450 100 -700 Weight 78.925 kg Intake: Other 500 Output: Urine 450 400 700 Uretheral ([place]) 100 Other: Voiding Method Indwelling Catheter Indwelling Catheter Indwelling Catheter # Bowel Movements 1 1 1 - Exam Patient was sleeping. No tremors were noticed when he was sleeping. On waking him up, patient appears much more alert and awake. His tremors did appear when he was waking up. Tone is again severely increased. Patient states his name is "Charly". He states the month is April, could not tell the year. He says some random words like "ego", then said "I am not sure what yellow is". Then he rambles, with nonsensical speech. - Labs CBC & Chem 7: 10/23/24 04:56 10/23/24 04:56 Labs: Abnormal Lab Results - Last 24 Hours (Table) 10/22/24 Range/Units 05:10 Chloride 112 H (96-109) mmol/L Carbon Dioxide 17.2 L (21.6-31.8) mmol/L Anion Gap 14.80 H (4.00-12.00) mmol/L BUN 70.1 H (9.0-27.0) mg/dL Creatinine 6.8 H (0.6-1.5) mg/dL Est GFR (CKD-EPI) 8 L (>=60) BUN/Creatinine Ratio 10.31 L (12.00-20.00) Ratio Calcium 7.7 L (8.7-10.3) mg/dL Microbiology - Last 24 Hours (Table) 10/17/24 19:30 Blood Culture - Preliminary Blood Assessment and Plan Assessment: * Altered mental status, likely due to toxic metabolic encephalopathy * Rule out sepsis/pneumonia * Stage III pressure ulcer of sacral region * Failure to thrive * Hypernatremia, resolved * Acute kidney injury, likely due to ATN, (vancomycin toxicity versus hypotension per nephrology) renal functions worsening, with creatinine 6.8. * Advanced Parkinson's, history of DBS placement * Dementia, severe degree * Hydronephrosis with cortical thinning Plan: * Patient has advanced dementia and advanced Parkinson's. He has superimposed severe toxic metabolic encephalopathy due to reasons mentioned above. * EEG was performed, which was abnormal due to background slowing of moderate to severe degree. This is suggestive of generalized cerebral dysfunction as can be seen with toxic metabolic encephalopathy or related to diffuse structural brain abnormality. Clinical correlation is recommended. Intermittent myogenic artifacts were seen in the right or left or bitemporal region during the study from underlying tremor. No epileptiform activity was seen. * Treatment of various metabolic/medical conditions (as mentioned above) as per IM and other specialties on board. * Patient currently on Zosyn and daptomycin. ID on board. * Patient currently on Sinemet 25/100, 3 times daily. * Patient's renal functions are worsening. Nephrology following. 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 * Prognosis very guarded. Patient is no CODE STATUS. * Discussed with primary team.
[2024-10-23 11:52] LABS: Glucose,Whole Blood 103 mg/dL (70-110)
--- NOTE | 2024-10-23 12:07 | P.PN ---
Subjective Patient seen for follow-up of ELIJAH and hypernatremia. No significant improvement in mentation. Good urine output noted. 1700 mL charted for 24 hours. Serum creatinine at 7.2 today. There is discussion regarding renal replacement therapy. I will talk to power of associate attorney who is the niece regarding initiating dialysis. Objective - Vital Signs Vital signs: Vital Signs Temp 98.3 F 10/23/24 07:45 Pulse 72 10/23/24 07:45 Resp 16 10/23/24 07:45 BP 145/78 10/23/24 07:45 Pulse Ox 99 10/23/24 07:45 FiO2 Intake & Output 10/22/24 10/23/24 10/23/24 18:59 06:59 18:59 Output Total 1000 700 Balance -1000 -700 Output: Urine 1000 700 Uretheral ([place]) 100 100 Other: Voiding Method Indwelling Catheter Indwelling Catheter Indwelling Catheter # Bowel Movements 1 1 - Exam Patient is sleeping but arousable. Tremors seem to worsen when he wakes up. Examination of the heart S1 and S2 Examination of the lungs bilateral breath sounds are heard Examination of lower extremity shows no evidence of edema Indwelling Davenport catheter noted Moving 4 extremities. - Labs CBC & Chem 7: 10/23/24 04:56 10/23/24 04:56 Labs: Abnormal Lab Results - Last 24 Hours (Table) 10/23/24 10/23/24 Range/Units 04:56 04:56 RBC 3.64 L (4.40-5.60) X 10*6/uL Hgb 10.5 L (13.0-17.0) g/dL Hct 32.5 L (39.6-50.0) % RDW 14.8 H (11.5-14.5) % Plt Count 112 L (140-440) X 10*3/uL Immature Gran # 0.09 H (0.00-0.04) X 10*3/uL Lymphocytes # 0.58 L (0.90-5.00) X 10*3/uL Chloride 110 H (96-109) mmol/L Carbon Dioxide 18.7 L (21.6-31.8) mmol/L Anion Gap 13.30 H (4.00-12.00) mmol/L BUN 69.2 H (9.0-27.0) mg/dL Creatinine 7.2 H (0.6-1.5) mg/dL Est GFR (CKD-EPI) 8 L (>=60) BUN/Creatinine Ratio 9.61 L (12.00-20.00) Ratio Calcium 7.9 L (8.7-10.3) mg/dL Assessment and Plan Assessment: 1. Acute kidney injury secondary to vancomycin toxicity versus hypotension induced ATN. Significantly increased creatinine 3.97 on admission, 7.2 today with previous creatinine 0.6 on 10/06/2024. UA significant for protein, blood, RBCs. Vancomycin trough elevated at 50.6 on 10/12, random vancomycin this visit 26.5. Ultrasound of kidneys interpreted as severe right hydronephrosis with cortical thinning. This is chronic with a nonfunctioning right kidney 2. 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 3. Hypovolemic hypernatremia associated with acute kidney injury, Improved 4. Metabolic acidosis with anion gap likely from CKD, initial bicarb 13, improving 5. Sacral ulcer stage II on buttock 6. Parkinson's disease 7. HTN with CKD stage I 8. Mental status changes secondary to metabolic encephalopathy with underlying dementia and severe Parkinson's disease. Plan: Recommend initiating renal replacement therapy therapy. I did discuss with the niece who is the power of associate attorney and she would like to proceed with dialysis. Consult vascular surgery for dialysis catheter placement and we will plan for first treatment tomorrow.
--- NOTE | 2024-10-23 12:34 | P.PN ---
Subjective Progress Note Date: 10/23/24 Principal diagnosis: Reason for follow-up is pneumonia infected sacral pressure ulcer Patient is a 63-year-old male with a past medical history significant for hypertension Parkinson's recent admission to the hospital for aspiration pneumonia and also have infected sacral pressure ulcer culture positive for MRSA and Pseudomonas treated with the cefepime vancomycin initially that was transitioned to daptomycin in the outpatient setting has been brought back to the hospital concerning for mental status changes unresponsiveness and there was a question of pneumonia. On today's evaluation that is 10/23/2024, the patient continues to be afebrile, the patient is on room air and breathing comfortably, the Pt lethargic but arousable however not a very good historian no vomiting or diarrhea has been reported. Patient white count 6.33 creatinine 7.2 blood culture negative Objective - Vital Signs Vital signs: Vital Signs Temp 98.3 F 10/23/24 07:45 Pulse 72 10/23/24 07:45 Resp 16 10/23/24 07:45 BP 145/78 10/23/24 07:45 Pulse Ox 99 10/23/24 07:45 FiO2 Intake & Output 10/22/24 10/23/24 10/23/24 18:59 06:59 18:59 Output Total 1000 700 Balance -1000 -700 Output: Urine 1000 700 Uretheral ([place]) 100 100 Other: Voiding Method Indwelling Catheter Indwelling Catheter Indwelling Catheter # Bowel Movements 1 1 - Exam GENERAL DESCRIPTION: An elderly male lying in bed in no distress RESPIRATORY SYSTEM: Unlabored breathing , decreased breath sounds at bases HEART: S1 S2 regular rate and rhythm , ABDOMEN: Soft , no tenderness EXTREMITIES: No edema feet - Labs CBC & Chem 7: 10/23/24 04:56 10/23/24 04:56 Labs: Abnormal Lab Results - Last 24 Hours (Table) 10/23/24 10/23/24 Range/Units 04:56 04:56 RBC 3.64 L (4.40-5.60) X 10*6/uL Hgb 10.5 L (13.0-17.0) g/dL Hct 32.5 L (39.6-50.0) % RDW 14.8 H (11.5-14.5) % Plt Count 112 L (140-440) X 10*3/uL Immature Gran # 0.09 H (0.00-0.04) X 10*3/uL Lymphocytes # 0.58 L (0.90-5.00) X 10*3/uL Chloride 110 H (96-109) mmol/L Carbon Dioxide 18.7 L (21.6-31.8) mmol/L Anion Gap 13.30 H (4.00-12.00) mmol/L BUN 69.2 H (9.0-27.0) mg/dL Creatinine 7.2 H (0.6-1.5) mg/dL Est GFR (CKD-EPI) 8 L (>=60) BUN/Creatinine Ratio 9.61 L (12.00-20.00) Ratio Calcium 7.9 L (8.7-10.3) mg/dL Assessment and Plan (1) Pneumonia Current Visit: Yes Status: Acute Code(s): J18.9 - PNEUMONIA, UNSPECIFIED ORGANISM SNOMED Code(s): 600766844 (2) Stage III pressure ulcer of sacral region Current Visit: No Status: Acute Code(s): L89.153 - PRESSURE ULCER OF SACRAL REGION, STAGE 3 SNOMED Code(s): 76607728854936 Plan: 1patient presenting to the hospital with mental status changes decreased level of responsiveness and confusion which is likely multifactorial patient did have evidence of worsening kidney function and uremia could be contributing to it however patient has been on cefepime which can cause mental status changes and confusion. 2possible pneumonia on the chest x-ray keeping in mind the [facility] resident with confusion underlying aspiration and gram-negative pneumonia not entirely excluded 3patient is afebrile white count has been normal, and blood culture negative so far 4patient currently being treated with daptomycin and Zosyn along with local wound care with dry Aquacel dressing keeping the area of the pressure family the bedside question answered Dictation was produced using [email or web address] dictation software. please excuse any grammatical, word or spelling errors. Time with Patient: Less than 30
[2024-10-23 17:08] LABS: Glucose,Whole Blood 117 mg/dL (70-110)
--- NOTE | 2024-10-23 17:56 | XR ---
EXAMINATION TYPE: XR chest 1V portable DATE OF EXAM: 10/23/2024 5:45 PM COMPARISON: None. CLINICAL INDICATION: Male, 63 years old with history of NG tube placement., TECHNIQUE: XR chest 1V portable view(s) obtained. Right arm overlies the chest causing limitation. Na sogastric tube is present with tip in the mid abdomen. Electronic device overlies the left chest FINDINGS: The heart size is normal. The pulmonary vasculature is normal. Some mild right lower lobe infiltrate may be present. Correlate for atelectasis or pneumonia. IMPRESSION: 1. Mild right lower lobe infiltrate. Correlate for atelectasis or pneumonia [facility], , 10/23/2024 5:54 PM
[2024-10-24 00:04] LABS: Glucose,Whole Blood 104 mg/dL (70-110)
--- NOTE | 2024-10-24 05:55 | P.PN ---
Subjective Progress Note Date: 10/23/24 This is a pleasant 63 years old male on 10/01 who was recently discharged from this facility for pressure ulcer stage II on IV vancomycin and cefepime. Currently he presents from long-term for being diaphoretic for 2 days with pressure ulcers on the buttock. Patient cannot provide information , He does not answer questions. He keeps his eye closed and resists opening them, he has a resting tremor, pill rolling tremor in his right hand, he has stiff both upper and lower extremities. Pupils are equal and reactive to light. He has stage II pressure ulcer with some pinkish discoloration, no purulent discharge He has right arm PICC line, he is on IV daptomycin from long-term started on 10/16 till 10/27 Patient afebrile blood pressure stable WBCs 10.8, hemoglobin 11.5, sodium elevated 151, creatinine 3.9, previously was 1.7 and it was 2, I reviewed the chest x-ray myself .7. Chest x-ray: Airspace opacity projecting the spine correlate for pneumonia per radiologist, I reviewed chest x-ray myself, no significant consolidation, including symmetrical no pleural effusion. 10/19 Patient still confused, does not answer questions. He has pill rolling tremor, yesterday was in his right hand and today in his left hand, he has generalized stiffness most likely related to his Parkinson disease, patient has been confused for the last 3 to 4 days and he was not taking his Parkinson medication, the suspicion of seizure is low however he received Ativan yesterday. CT of the brain was negative neurology service consulted already Also has been treated for sepsis suspected for pressure ulcers also there is suspicion of aspiration pneumonia and currently has been covered with Zosyn. Looks like emergency room team consulted hospice, yesterday after rounding bedside nurse called me stating patient family requesting to talk to hospice team. We are going to talk to family and if they agreeable with going to place NG tube to start his Parkinson medication and other oral medication His hypernatremia and creatinine are trending up. NG tube placed can help also with water flushes He is continued on D5 W at 75 mL/h and dose increased today to 100 mL/h. 10/20 Patient still nonverbal Head of bed at 45 degree NG tube in place Patient is started on water flushes. Also resumed some of his oral medications through NG tube like metoprolol 25 mg as patient blood pressure and heart rate were elevated. No diarrhea. Nutrition consult called for tube feeding Family met with hospice team yesterday per their request, they opted to continue with medical management. No hospice 10/21/2024 Patient is seen in follow-up and mentation is back to baseline. Patient is mostly nonverbal although will say some things per nursing staff. Patient continues with NG tube at this time. Patient is high risk for aspiration and maintained on aspiration precautions. Patient continues on IV antibiotics per ID recommendation. Kidney functions were elevated although significantly improved with concerns of possible error in labs. Patient will need updated PT/OT therapy notes with plans on returning to ECF once stabilized. 10/22/2024 Patient is seen in follow-up today with multiple consultations following. Patient is unable to have the MRI due to brain stimulator even if turned off per MRI department here. MRI was canceled. Neurology following and will discuss further with family as patient's family is requesting to know the amount of brain functionality patient has. Patient continues to be confused although is more alert today. Creatinine continues to worsen above 6 today and will discuss further with nephrology if there is discussion of possible renal replacement. 10/23/2024 Patient is seen in follow-up today with neurology and nephrology following. Patient continues to have worsening kidney functions up to 7 creatinine today. Nephrology following and discussed with family and placed consult to vascular for temp cath placement to initiate hemodialysis. Patient continues with NG tube as he is NPO and had been aspirating. Dietary consulted and recommending enteral nutrition. Patient does not have a PICC line. Review of systems: Unable to assess as patient is nonverbal Physical exam: GENERAL: The patient is more awake and alert today although continues with confusion and mostly nonverbal, continued jerking movements likely related to his Parkinson disease, ill-appearing, elderly appearing HEENT: Pupils are round and equally reacting to light. EOMI. No scleral icterus. No conjunctival pallor. Normocephalic, atraumatic. No pharyngeal erythema. No thyromegaly. CARDIOVASCULAR: S1 and S2 muffled PULMONARY: Diminished breath sounds bilaterally otherwise chest is clear to auscultation, no wheezing , no crackles. ABDOMEN: Soft, nontender, nondistended, normoactive bowel sounds. No palpable organomegaly. MUSCULOSKELETAL: No joint swelling or deformity. EXTREMITIES: No cyanosis, clubbing, or pedal edema. NEUROLOGICAL: Continues to be somewhat confused, although is opening eyes and saying some things per nursing staff, he has resting tremor of the right and left hands, he follows some simple commands like squeezing the hands SKIN: No rashes. no petechiae. Assessment: Stage III sacral pressure ulcer with suspected infection, present on admission, cultures pending Possible aspiration pneumonia Metabolic/toxic encephalopathy multifactorial due to uremia and aspiration pneumonia Hypernatremia, improving Acute kidney injury, likely ATN with worsening kidney function up to 7 creatinine today. Will be started on hemodialysis per nephrology Parkinson disease, patient has resting tremor in his right hand and generalized stiffness, he is not taking his medication with nonadherence to medication, has a stimulator Congenital UPJ with nonfunctioning right kidney and chronic right hydronephrosis, no need for any intervention per urologist recently evaluated him during last admission Hypertension Hyperlipidemia GI prophylaxis DVT prophylaxis No code Plan: Continue with Zosyn and daptomycin with infectious disease following. 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 Patient is more awake and talking a little more today and following commands. Resume home medication, continue with NG tube for now. Continue n.p.o. Patient with worsening kidney functions. Discussed with nephrology regarding the possibility of renal replacement therapy and treatment plan moving forward. Family would like to proceed with dialysis. Vascular surgery consulted. Family have discussed the possibility of hospice informational meeting although would like to attempt dialysis to see if this improves his mentation. Patient has poor quality of life and hospice would be appropriate. The impression and plan of care has been dictated by Maye Johnson, Nurse Practitioner as directed. Dr. Frank MD I have performed a history and examination and MDM of this patient, discussed the same with the dictator, and agree with the dictator's assessment and plan as written ,documented as a scribe. Based on total visit time, I have performed more than 50% of the visit. Objective - Vital Signs Vital signs: Vital Signs Temp 98.3 F 10/23/24 07:45 Pulse 72 10/23/24 07:45 Resp 16 10/23/24 07:45 BP 145/78 10/23/24 07:45 Pulse Ox 99 10/23/24 07:45 FiO2 Intake & Output 10/22/24 10/23/24 10/23/24 18:59 06:59 18:59 Output Total 1000 700 Balance -1000 -700 Output: Urine 1000 700 Uretheral ([place]) 100 100 Other: Voiding Method Indwelling Catheter Indwelling Catheter Indwelling Catheter # Bowel Movements 1 1 - Labs CBC & Chem 7: 10/23/24 04:56 10/23/24 04:56
[2024-10-24 06:14] LABS: Glucose,Whole Blood 99 mg/dL (70-110)
[2024-10-24] MEDS: LIDOCAINE 1% INJ 10MG/ML (20 ML MDV) SQ ONE ×2 (08:36→08:42)
--- NOTE | 2024-10-24 09:09 | IR ---
Fluoroscopy INDICATION: Pain FINDINGS: Fluoroscopy time: 60 seconds. Total dose area product (DAP) in uGy*m?, mGy*cm? (or similar): 487.73 Images obtained: 51. Images document catheter placement in the right inguinal region IMPRESSION: 1. Documentation of fluoroscopy. [facility], , 10/24/2024 9:06 AM
--- NOTE | 2024-10-24 09:20 | P.GSCN ---
History of Present Illness History of present illness: 63-year-old gentleman history of acute chronic renal failure. Patient has a hyperkalemia hypernatremia consulted for placement of dialysis catheter. Patient was seen in his room neck is supple no bruit appreciated Chest crackles bilateral. 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 Plan is placement of stent of a dialysis catheter risk and complication discussed Past Medical History Past Medical History: Hypertension Additional Past Medical History / Comment(s): parkinsons DNR-10/17/2024 History of Any Multi-Drug Resistant Organisms: MRSA Year Discovered:: 09/30/24 MDRO Source:: buttock Past Surgical History: No Surgical Hx Reported Additional Past Surgical History / Comment(s): deep brain stimulator Past Anesthesia/Blood Transfusion Reactions: No Reported Reaction Past Psychological History: No Psychological Hx Reported Smoking Status: Former smoker Past Alcohol Use History: Occasional Past Drug Use History: Marijuana - Past Family History Father Family Medical History: Unable to Obtain Mother Family Medical History: Unable to Obtain Medications and Allergies Home Medications Medication Instructions Recorded Confirmed Type Atorvastatin [Lipitor] 20 mg PO HS@2100 08/31/24 10/18/24 History atenoloL [Tenormin] 25 mg PO DAILY@0600 08/31/24 10/18/24 History Loperamide [Imodium] 2 mg PO QID PRN cap 09/16/24 10/18/24 Rx Carbidopa-Levodopa 25-100 mg 1 tab PO AC-TID 09/30/24 10/18/24 History [Sinemet 25-100 mg] Cholestyramine (with Sugar) 4 gm PO BID@0800,1700 09/30/24 10/18/24 History [Questran Packet] Ensure Enlive 237 ml PO TID@0800,1200,1700 09/30/24 10/18/24 History Heparin Sodium,Porcine (1 ml) 5,000 unit SQ Q12HR@0800,2100 09/30/24 10/18/24 History [Heparin Sodium] Ipratropium-Albuterol Nebulize 3 ml INHALATION RT-Q6H 09/30/24 10/18/24 History [Duoneb 0.5 mg-3 mg/3 ml Soln] Liquacel 30 ml PO DAILY@0800 09/30/24 10/18/24 History Magic Cup 1 dose PO DAILY@1200 09/30/24 10/18/24 History Magnesium Hydroxide [Milk of 7,200 mg PO DAILY PRN 09/30/24 10/18/24 History Magnesia Concentrate] Na Phos,M-B/Na Phos,Di-Ba [Fleet 133 ml RECTAL DAILY PRN 09/30/24 10/18/24 History Adult] bisacodyL [Dulcolax] 10 mg RECTAL DAILY PRN 09/30/24 10/18/24 History Acetaminophen Tab [Tylenol] 650 mg PO Q6HR PRN 10/18/24 10/18/24 History Cefepime [Maxipime] 2 gm IVPB Q8HR@0600,1400,2200 10/18/24 10/18/24 History DAPTOmycin 350 mg IV DAILY@0800 10/18/24 10/18/24 History HYDROcodone/APAP [[place] Elixir 10 ml PO Q6H PRN 10/18/24 10/18/24 History 7.5-325Mg/15Ml] LORazepam [Ativan] 0.5 mg PO Q8H PRN 10/18/24 10/18/24 History Melatonin 5 mg PO HS@2100 10/18/24 10/18/24 History Allergies Allergy/AdvReac Type Severity Reaction Status Date / Time No Known Allergies Allergy Verified 10/18/24 12:01 Surgical - Exam Vital Signs Temp Pulse Resp BP Pulse Ox 98.0 F 86 18 108/61 97 10/17/24 19:09 10/17/24 19:09 10/17/24 19:09 10/17/24 19:09 10/17/24 19:09 Results - Labs 10/23/24 04:56 10/23/24 04:56 Abnormal Lab Results - Last 24 Hours (Table) 10/23/24 10/23/24 10/23/24 Range/Units 04:56 04:56 17:07 RBC 3.64 L (4.40-5.60) X 10*6/uL Hgb 10.5 L (13.0-17.0) g/dL Hct 32.5 L (39.6-50.0) % RDW 14.8 H (11.5-14.5) % Plt Count 112 L (140-440) X 10*3/uL Immature Gran # 0.09 H (0.00-0.04) X 10*3/uL Lymphocytes # 0.58 L (0.90-5.00) X 10*3/uL Chloride 110 H (96-109) mmol/L Carbon Dioxide 18.7 L (21.6-31.8) mmol/L Anion Gap 13.30 H (4.00-12.00) mmol/L BUN 69.2 H (9.0-27.0) mg/dL Creatinine 7.2 H (0.6-1.5) mg/dL Est GFR (CKD-EPI) 8 L (>=60) BUN/Creatinine Ratio 9.61 L (12.00-20.00) Ratio POC Glucose (mg/dL) 117 H (70-110) mg/dL Calcium 7.9 L (8.7-10.3) mg/dL Microbiology - Last 24 Hours (Table) 10/17/24 19:30 Blood Culture - Final Blood Diabetes panel 10/23/24 Range/Units 04:56 Sodium 142 (135-145) mmol/L Potassium 3.8 (3.5-5.5) mmol/L Chloride 110 H (96-109) mmol/L Carbon Dioxide 18.7 L (21.6-31.8) mmol/L BUN 69.2 H (9.0-27.0) mg/dL Creatinine 7.2 H (0.6-1.5) mg/dL Glucose 106 (70-110) mg/dL Calcium 7.9 L (8.7-10.3) mg/dL Calcium panel 10/23/24 Range/Units 04:56 Calcium 7.9 L (8.7-10.3) mg/dL Pituitary panel 10/23/24 Range/Units 04:56 Sodium 142 (135-145) mmol/L Potassium 3.8 (3.5-5.5) mmol/L Chloride 110 H (96-109) mmol/L Carbon Dioxide 18.7 L (21.6-31.8) mmol/L BUN 69.2 H (9.0-27.0) mg/dL Creatinine 7.2 H (0.6-1.5) mg/dL Glucose 106 (70-110) mg/dL Calcium 7.9 L (8.7-10.3) mg/dL Adrenal panel 10/23/24 Range/Units 04:56 Sodium 142 (135-145) mmol/L Potassium 3.8 (3.5-5.5) mmol/L Chloride 110 H (96-109) mmol/L Carbon Dioxide 18.7 L (21.6-31.8) mmol/L BUN 69.2 H (9.0-27.0) mg/dL Creatinine 7.2 H (0.6-1.5) mg/dL Glucose 106 (70-110) mg/dL Calcium 7.9 L (8.7-10.3) mg/dL
--- NOTE | 2024-10-24 09:22 | P.PCN ---
Description of Procedure: Preop diagnosis acute chronic renal failure hyperkalemia Postop the same procedure ultrasound-guided 30 cm dialysis catheter placed right femoral approach. Lidocaine were infiltrated in the groin area. Sound guided micropuncture puncture introduced right femoral vein micropuncture guide was passed. Then we placed a 4 [place] sheath through the then we placed a regular guidewire dilator was advanced over the guidewire we placed 30 cm dialysis catheter with heparin saline hep-locked secured with 3-0 nylon patient tarted the procedure
[2024-10-24 09:57] LABS: Basophils # (A) 0.03 X 10*3/uL (0.00-0.10); Basophils % (A) 0.5 %; Eosinophils # (A) 0.29 X 10*3/uL (0.04-0.35); Eosinophils % (A) 5.2 %; HCT 29.5 % (39.6-50.0); HGB 9.8 g/dL (13.0-17.0); Lymphocytes # (A) 0.51 X 10*3/uL (0.90-5.00); Lymphocytes % (A) 9.1 %; MCH 29.3 pg (27.0-32.0); MCHC 33.2 g/dL (32.0-37.0); MCV 88.1 FL (80.0-97.0); Mean Platelet Volume 10.2 FL (9.5-12.2); Monocytes # (A) 0.67 X 10*3/uL (0.20-1.00); Monocytes % (A) 11.9 %; NRBC Per 100 WBC 0 X 10*3/uL (0.00-0.01); Neutrophils # (A) 4.03 X 10*3/uL (1.80-7.70); Neutrophils % (A) 71.5 %; Platelet Count 117 X 10*3/uL (140-440); RBC 3.35 X 10*6/uL (4.40-5.60); RDW 14.6 % (11.5-14.5); WBC 5.63 X 10*3/uL (4.50-10.00)
[2024-10-24] MEDS: SODIUM CHLORIDE 0.9% IVPB SCH (10:09)
[2024-10-24] MEDS: DAPTOMYCIN IVPB SCH (10:09)
[2024-10-24 12:15] LABS: ALT 7 U/L (10-49); AST 29 U/L (14-35); Albumin 2.6 g/dL (3.8-4.9); Albumin/Globulin Ratio 1.13 Ratio (1.60-3.17); Alkaline Phosphatase 74 U/L (41-126); BUN/Creat Ratio 8.97 Ratio (12.00-20.00); Blood Urea Nitrogen 64.6 mg/dL (9.0-27.0); Calcium 7.5 mg/dL (8.7-10.3); Carbon Dioxide 23.1 mmol/L (21.6-31.8); Chloride 107 mmol/L (96-109); Globulin 2.3 g/dL (1.6-3.3); Glucose 105 mg/dL (70-110); Magnesium 1.8 mg/dL (1.5-2.4); Potassium 3.2 mmol/L (3.5-5.5); Sodium 142 mmol/L (135-145); Total Bilirubin 0.6 mg/dL (0.3-1.2); Total Protein 4.9 g/dL (6.2-8.2)
--- NOTE | 2024-10-24 12:31 | P.PN ---
Subjective Progress Note Date: 10/24/24 Principal diagnosis: Reason for follow-up is pneumonia infected sacral pressure ulcer Patient is a 63-year-old male with a past medical history significant for hypertension Parkinson's recent admission to the hospital for aspiration pneumonia and also have infected sacral pressure ulcer culture positive for MRSA and Pseudomonas treated with the cefepime vancomycin initially that was transitioned to daptomycin in the outpatient setting has been brought back to the hospital concerning for mental status changes unresponsiveness and there was a question of pneumonia. On today's evaluation that is 10/24/2024, patient did not have any fever and is breathing comfortably on room air patient is slightly more awake today however elevated good historian no vomiting diarrhea any changes reported by the nursing staff. Patient did have dialysis catheter placement this morning Patient white count is 5.63, creatinine 7.2 blood culture has been negative Objective - Vital Signs Vital signs: Vital Signs Temp 98.6 F 10/24/24 07:23 Pulse 72 10/24/24 07:23 Resp 20 10/24/24 07:23 BP 166/76 10/24/24 07:23 Pulse Ox 96 10/24/24 07:23 FiO2 Intake & Output 10/23/24 10/24/24 10/24/24 18:59 06:59 18:59 Intake Total 250 Output Total 900 600 Balance -900 -350 Weight 78.925 kg Intake: Oral 250 Output: Urine 900 600 Other: Voiding Method Indwelling Catheter Indwelling Catheter Indwelling Catheter # Bowel Movements 1 1 - Exam GENERAL DESCRIPTION: An elderly male lying in bed in no distress RESPIRATORY SYSTEM: Unlabored breathing , decreased breath sounds at bases HEART: S1 S2 regular rate and rhythm , ABDOMEN: Soft , no tenderness EXTREMITIES: No edema feet - Labs CBC & Chem 7: 10/24/24 05:30 10/24/24 05:30 Labs: Abnormal Lab Results - Last 24 Hours (Table) 10/23/24 10/24/24 10/24/24 Range/Units 17:07 05:30 05:30 RBC 3.35 L (4.40-5.60) X 10*6/uL Hgb 9.8 L (13.0-17.0) g/dL Hct 29.5 L (39.6-50.0) % RDW 14.6 H (11.5-14.5) % Plt Count 117 L (140-440) X 10*3/uL Immature Gran # 0.10 H (0.00-0.04) X 10*3/uL Lymphocytes # 0.51 L (0.90-5.00) X 10*3/uL Potassium 3.2 L (3.5-5.5) mmol/L BUN 64.6 H (9.0-27.0) mg/dL Creatinine 7.2 H (0.6-1.5) mg/dL Est GFR (CKD-EPI) 8 L (>=60) BUN/Creatinine Ratio 8.97 L (12.00-20.00) Ratio POC Glucose (mg/dL) 117 H (70-110) mg/dL Calcium 7.5 L (8.7-10.3) mg/dL ALT 7 L (10-49) U/L Total Protein 4.9 L (6.2-8.2) g/dL Albumin 2.6 L (3.8-4.9) g/dL Albumin/Globulin Ratio 1.13 L (1.60-3.17) Ratio Microbiology - Last 24 Hours (Table) 10/17/24 19:30 Blood Culture - Final Blood Assessment and Plan (1) Pneumonia Current Visit: Yes Status: Acute Code(s): J18.9 - PNEUMONIA, UNSPECIFIED ORGANISM SNOMED Code(s): 968569170 (2) Stage III pressure ulcer of sacral region Current Visit: No Status: Acute Code(s): L89.153 - PRESSURE ULCER OF SACRAL REGION, STAGE 3 SNOMED Code(s): 57002151217802 Plan: 1patient presenting to the hospital with mental status changes decreased level of responsiveness and confusion which is likely multifactorial patient did have evidence of worsening kidney function and uremia could be contributing to it however patient has been on cefepime which can cause mental status changes and confusion. 2possible pneumonia on the chest x-ray keeping in mind the senior living resident with confusion underlying aspiration and gram-negative pneumonia not entirely excluded 3patient is afebrile white count has been normal, and blood culture negative so far 4patient is afebrile and may have some clinical improvement we will treat with daptomycin and Zosyn and monitor clinical course closely Dictation was produced using [employer] software. please excuse any grammatical, word or spelling errors. Time with Patient: Less than 30
--- NOTE | 2024-10-24 13:20 | P.PN ---
Subjective Progress Note Date: 10/23/24 Patient was seen for follow-up. Patient is sleeping at this time. Per nursing report, he has been more alert and awake. She mentioned that he was having conversation with his niece today, and was sometimes talking making sense, other times rambles. No new concerns. At present he is asleep. Objective - Vital Signs Vital signs: Vital Signs Temp 98.2 F 10/23/24 13:48 Pulse 73 10/23/24 13:48 Resp 16 10/23/24 13:48 BP 128/72 10/23/24 13:48 Pulse Ox 99 10/23/24 13:48 FiO2 Intake & Output 10/22/24 10/23/24 10/23/24 18:59 06:59 18:59 Output Total 1000 700 900 Balance -1000 -700 -900 Weight 78.925 kg Output: Urine 1000 700 900 Uretheral ([place]) 100 100 Other: Voiding Method Indwelling Catheter Indwelling Catheter Indwelling Catheter # Bowel Movements 1 1 1 - Exam Patient was sleeping. No tremors were noticed when he was sleeping. On waking him up, patient appears much more alert and awake. His tremors did appear when he was waking up. Tone is again severely increased. Per nurse report, he was able to tell his name correctly today. - Labs CBC & Chem 7: 10/24/24 05:30 10/24/24 05:30 Labs: Abnormal Lab Results - Last 24 Hours (Table) 10/23/24 10/23/24 Range/Units 04:56 04:56 RBC 3.64 L (4.40-5.60) X 10*6/uL Hgb 10.5 L (13.0-17.0) g/dL Hct 32.5 L (39.6-50.0) % RDW 14.8 H (11.5-14.5) % Plt Count 112 L (140-440) X 10*3/uL Immature Gran # 0.09 H (0.00-0.04) X 10*3/uL Lymphocytes # 0.58 L (0.90-5.00) X 10*3/uL Chloride 110 H (96-109) mmol/L Carbon Dioxide 18.7 L (21.6-31.8) mmol/L Anion Gap 13.30 H (4.00-12.00) mmol/L BUN 69.2 H (9.0-27.0) mg/dL Creatinine 7.2 H (0.6-1.5) mg/dL Est GFR (CKD-EPI) 8 L (>=60) BUN/Creatinine Ratio 9.61 L (12.00-20.00) Ratio Calcium 7.9 L (8.7-10.3) mg/dL Microbiology - Last 24 Hours (Table) 10/17/24 19:30 Blood Culture - Final Blood Assessment and Plan Assessment: * Altered mental status, likely due to toxic metabolic encephalopathy * Rule out sepsis/pneumonia * Stage III pressure ulcer of sacral region * Failure to thrive * Hypernatremia, resolved * Acute kidney injury, likely due to ATN, (vancomycin toxicity versus hypo tension per nephrology) renal functions, worsening, with creatinine 7.2. * Advanced Parkinson's, history of DBS placement * Dementia, severe degree * Hydronephrosis with cortical thinning Plan: * Patient has advanced dementia and advanced Parkinson's. He has superimposed s evere toxic metabolic encephalopathy due to reasons mentioned above. * EEG was performed, which was abnormal due to background slowing of moderate to severe degree. This is suggestive of generalized cerebral dysfunction as can be seen with toxic metabolic encephalopathy or related to diffuse structural brain abnormality. Clinical correlation is recommended. Intermittent myogenic artifacts were seen in the right or left or bitemporal region during the study from underlying tremor. No epileptiform activity was seen. * Treatment of various metabolic/medical conditions (as mentioned above) as per IM and other specialties on board. * Patient currently on Zosyn and daptomycin. ID on board. * Patient currently on Sinemet 25/100, 3 times daily. * Patient's renal functions are worsening. Nephrology following. Patient probably will start hemodialysis in the morning. * Prognosis very guarded. Patient is no CODE STATUS. * Discussed with nursing staff.
--- NOTE | 2024-10-24 16:30 | P.PN ---
Subjective Patient seen for follow-up of ELIJAH and hypernatremia. No significant improvement in mentation. Good urine output noted. 1500 mL charted for 24 hours. Serum creatinine at 7.2 yesterday. Patient will receive his first hemodialysis treatment today. Temporary dialysis catheter has been placed. Objective - Vital Signs Vital signs: Vital Signs Temp 98.7 F 10/24/24 12:55 Pulse 72 10/24/24 07:23 Resp 18 10/24/24 12:55 BP 158/79 10/24/24 12:55 Pulse Ox 100 10/24/24 12:55 FiO2 Intake & Output 10/23/24 10/24/24 10/24/24 18:59 06:59 18:59 Intake Total 250 Output Total 900 600 Balance -900 -350 Weight 78.925 kg Intake: Oral 250 Output: Urine 900 600 Other: Voiding Method Indwelling Catheter Indwelling Catheter Indwelling Catheter # Bowel Movements 1 1 - Exam Patient is sleeping but arousable. Tremors seem to worsen when he wakes up. Examination of the heart S1 and S2 Examination of the lungs bilateral breath sounds are heard Examination of lower extremity shows no evidence of edema Indwelling Daven[place] catheter noted Moving 4 extremities. - Labs CBC & Chem 7: 10/24/24 05:30 10/24/24 05:30 Labs: Abnormal Lab Results - Last 24 Hours (Table) 10/23/24 10/24/24 10/24/24 Range/Units 17:07 05:30 05:30 RBC 3.35 L (4.40-5.60) X 10*6/uL Hgb 9.8 L (13.0-17.0) g/dL Hct 29.5 L (39.6-50.0) % RDW 14.6 H (11.5-14.5) % Plt Count 117 L (140-440) X 10*3/uL Immature Gran # 0.10 H (0.00-0.04) X 10*3/uL Lymphocytes # 0.51 L (0.90-5.00) X 10*3/uL Potassium 3.2 L (3.5-5.5) mmol/L BUN 64.6 H (9.0-27.0) mg/dL Creatinine 7.2 H (0.6-1.5) mg/dL Est GFR (CKD-EPI) 8 L (>=60) BUN/Creatinine Ratio 8.97 L (12.00-20.00) Ratio POC Glucose (mg/dL) 117 H (70-110) mg/dL Calcium 7.5 L (8.7-10.3) mg/dL ALT 7 L (10-49) U/L Total Protein 4.9 L (6.2-8.2) g/dL Albumin 2.6 L (3.8-4.9) g/dL Albumin/Globulin Ratio 1.13 L (1.60-3.17) Ratio Microbiology - Last 24 Hours (Table) 10/17/24 19:30 Blood Culture - Final Blood Assessment and Plan Assessment: 1. Acute kidney injury secondary to vancomycin toxicity versus hypotension induced ATN. Significantly increased creatinine 3.97 on admission, 7.2 ye sterday with previous creatinine 0.6 on 10/06/2024. UA significant for protein, blood, RBCs. Vancomycin trough elevated at 50.6 on 10/12, random vancomycin this visit 26.5. Ultrasound of kidneys interpreted as severe right hydronephrosis with cortical thinning. This is chronic with a nonfunctioning right kidney 2. 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 3. Hypovolemic hypernatremia associated with acute kidney injury, Improved 4. Metabolic acidosis with anion gap likely from CKD, initial bicarb 13, improv ing 5. Sacral ulcer stage II on buttock 6. Parkinson's disease 7. HTN with CKD stage I 8. Mental status changes secondary to metabolic encephalopathy with underlying dementia and severe Parkinson's disease. Plan: Patient will receive his first hemodialysis treatment today. Next treatment on 10/06/2019 Continue to avoid nephrotoxic medications and monitor for recovery of renal function. DC IV bicarb Replace potassium
[2024-10-24] MEDS: LACTATED RINGERS 1,000 ML IV SCH (16:49)
[2024-10-24 18:03] LABS: Glucose,Whole Blood 93 mg/dL (70-110)
[2024-10-24 18:22] LABS: Hepatitis B Surface Antigen Nonreactive (Nonreactive)
[2024-10-24] MEDS: POTASSIUM CHLORIDE ER 20 MEQ TAB.ER PO SCH (18:23)
[2024-10-24 18:29] LABS: Hepatitis B Surface AB- Quant 3.5 mIU/mL
--- NOTE | 2024-10-24 20:04 | P.PN ---
Subjective Progress Note Date: 10/24/24 This is a pleasant 63 years old male on 10/01 who was recently discharged from this facility for pressure ulcer stage II on IV vancomycin and cefepime. Currently he presents from half-way for being diaphoretic for 2 days with pressure ulcers on the buttock. Patient cannot provide information , He does not answer questions. He keeps his eye closed and resists opening them, he has a resting tremor, pill rolling tremor in his right hand, he has stiff both upper and lower extremities. Pupils are equal and reactive to light. He has stage II pressure ulcer with some pinkish discoloration, no purulent discharge He has right arm PICC line, he is on IV daptomycin from half-way started on 10/16 till 10/27 Patient afebrile blood pressure stable WBCs 10.8, hemoglobin 11.5, sodium elevated 151, creatinine 3.9, previously was 1.7 and it was 2, I reviewed the chest x-ray myself .7. Chest x-ray: Airspace opacity projecting the spine correlate for pneumonia per radiologist, I reviewed chest x-ray myself, no significant consolidation, including symmetrical no pleural effusion. 10/19 Patient still confused, does not answer questions. He has pill rolling tremor, yesterday was in his right hand and today in his left hand, he has generalized stiffness most likely related to his Parkinson disease, patient has been confused for the last 3 to 4 days and he was not taking his Parkinson medication, the suspicion of seizure is low however he received Ativan yesterday. CT of the brain was negative neurology service consulted already Also has been treated for sepsis suspected for pressure ulcers also there is suspicion of aspiration pneumonia and currently has been covered with Zosyn. Looks like emergency room team consulted hospice, yesterday after rounding bedside nurse called me stating patient family requesting to talk to hospice team. We are going to talk to family and if they agreeable with going to place NG tube to start his Parkinson medication and other oral medication His hypernatremia and creatinine are trending up. NG tube placed can help also with water flushes He is continued on D5 W at 75 mL/h and dose increased today to 100 mL/h. 10/20 Patient still nonverbal Head of bed at 45 degree NG tube in place Patient is started on water flushes. Also resumed some of his oral medications through NG tube like metoprolol 25 mg as patient blood pressure and heart rate were elevated. No diarrhea. Nutrition consult called for tube feeding Family met with hospice team yesterday per their request, they opted to continue with medical management. No hospice 10/21/2024 Patient is seen in follow-up and mentation is back to baseline. Patient is mostly nonverbal although will say some things per nursing staff. Patient continues with NG tube at this time. Patient is high risk for aspiration and maintained on aspiration precautions. Patient continues on IV antibiotics per ID recommendation. Kidney functions were elevated although significantly improved with concerns of possible error in labs. Patient will need updated PT/OT therapy notes with plans on returning to [facility]CF once stabilized. 10/22/2024 Patient is seen in follow-up today with multiple consultations following. Patient is unable to have the MRI due to brain stimulator even if turned off per MRI department here. MRI was canceled. Neurology following and will discuss further with family as patient's family is requesting to know the amount of brain functionality patient has. Patient continues to be confused although is more alert today. Creatinine continues to worsen above 6 today and will discuss further with nephrology if there is discussion of possible renal replacement. 10/23/2024 Patient is seen in follow-up today with neurology and nephrology following. Patient continues to have worsening kidney functions up to 7 creatinine today. Nephrology following and discussed with family and placed consult to vascular for temp cath placement to initiate hemodialysis. Patient continues with NG tube as he is NPO and had been aspirating. Dietary consulted and recommending enteral nutrition. Patient does not have a PICC line. 10/24/2024 Patient evaluated in follow up on the medical floor. He has removed his own NG tube. Remains NPO due to signigicant and continued aspiration. He has had right groin temporary hemodialysis catheter placed. Nephrology following. Patient is currently scheduled to undergo hemodialysis. Patient continues on LR at 75 mls/hr. Remains on IV daptomycin. Review of systems: Unable to assess as patient is nonverbal Physical exam: GENERAL: The patient is more awake and alert today although continues with confusion and mostly nonverbal, continued jerking movements likely related to his Parkinson disease, ill-appearing, elderly appearing HEENT: Pupils are round and equally reacting to light. EOMI. No scleral icterus. No conjunctival pallor. Normocephalic, atraumatic. No pharyngeal erythema. No thyromegaly. CARDIOVASCULAR: S1 and S2 muffled PULMONARY: Diminished breath sounds bilaterally otherwise chest is clear to auscultation, no wheezing , no crackles. ABDOMEN: Soft, nontender, nondistended, normoactive bowel sounds. No palpable organomegaly. MUSCULOSKELETAL: No joint swelling or deformity. EXTREMITIES: No cyanosis, clubbing, or pedal edema. NEUROLOGICAL: Continues to be somewhat confused, although is opening eyes and saying some things per nursing staff, he has resting tremor of the right and left hands, he follows some simple commands like squeezing the hands SKIN: No rashes. no petechiae. Assessment: Stage III sacral pressure ulcer with suspected infection, present on admission, blood cultures negative. Recent wound culture in September reveals pseudomonas aeruginosa and presumptive MRSA. Possible aspiration pneumonia Metabolic/toxic encephalopathy multifactorial due to uremia and aspiration pneumonia Hypernatremia, improving Hypokalemia Acute kidney injury, likely ATN with worsening kidney function up to 7 creatinine today. Will be started on hemodialysis per nephrology Parkinson disease, patient has resting tremor in his right hand and generalized stiffness, he is not taking his medication with nonadherence to medication, has a stimulator Congenital UPJ with nonfunctioning right kidney and chronic right hydron ephrosis, no need for any intervention per urologist recently evaluated him during last admission Hypertension Hyperlipidemia GI prophylaxis DVT prophylaxis No code Plan: Continue with Zosyn and daptomycin with infectious disease following. Cultures are pending at this time Neurology evaluated the patient recommending MRI and power of deputy grand jury did turn off stimulator device although per nursing staff our MRI department reports they are unable to perform an MRI, MRI was canceled at this time. Patient is more awake and talking a little more today and following commands. Resume home medication, continue with NG tube for now. Continue n.p.o. NG tube will need to replaced as patient has pulled it out himself. Patient with worsening kidney functions. Discussed with nephrology regarding the possibility of renal replacement therapy and treatment plan moving forward. Family would like to proceed with dialysis. Vascular surgery consulted. Family have discussed the possibility of hospice informational meeting although would like to attempt dialysis to see if this improves his mentation. Patient has poor quality of life and hospice would be appropriate. The impression and plan of care has been dictated by Rocío Vasquez, Nurse Practitioner as directed. Dr. Frank MD I have performed a history and examination and MDM of this patient, discussed the same with the dictator, and agree with the dictator's assessment and plan as written ,documented as a scribe. Based on total visit time, I have performed more than 50% of the visit. Objective - Vital Signs Vital signs: Vital Signs Temp 100.1 F H 10/24/24 19:48 Pulse 88 10/24/24 19:48 Resp 16 10/24/24 19:48 BP 156/73 10/24/24 19:48 Pulse Ox 99 10/24/24 19:48 FiO2 Intake & Output 10/24/24 10/24/24 10/25/24 06:59 18:59 06:59 Intake Total 250 400 Output Total 600 1025 Balance -350 -625 Intake: Oral 250 Hemodialysis 400 Output: Urine 600 625 Hemodialysis 400 Hemodialysis Net Amount 0 Other: Voiding Method Indwelling Catheter Indwelling Catheter # Bowel Movements 1 - Labs CBC & Chem 7: 10/24/24 05:30 10/24/24 05:30 Labs: Abnormal Lab Results - Last 24 Hours (Table) 10/24/24 10/24/24 Range/Units 05:30 05:30 RBC 3.35 L (4.40-5.60) X 10*6/uL Hgb 9.8 L (13.0-17.0) g/dL Hct 29.5 L (39.6-50.0) % RDW 14.6 H (11.5-14.5) % Plt Count 117 L (140-440) X 10*3/uL Immature Gran # 0.10 H (0.00-0.04) X 10*3/uL Lymphocytes # 0.51 L (0.90-5.00) X 10*3/uL Potassium 3.2 L (3.5-5.5) mmol/L BUN 64.6 H (9.0-27.0) mg/dL Creatinine 7.2 H (0.6-1.5) mg/dL Est GFR (CKD-EPI) 8 L (>=60) BUN/Creatinine Ratio 8.97 L (12.00-20.00) Ratio Calcium 7.5 L (8.7-10.3) mg/dL ALT 7 L (10-49) U/L Total Protein 4.9 L (6.2-8.2) g/dL Albumin 2.6 L (3.8-4.9) g/dL Albumin/Globulin Ratio 1.13 L (1.60-3.17) Ratio Assessment and Plan Time with Patient: Less than 30
[2024-10-25] MEDS: POTASSIUM BICARBONATE/CIT AC 20 MEQ TABLET.EFF PO SCH (00:01)
[2024-10-25 02:51] LABS: Glucose,Whole Blood 97 mg/dL (70-110)
[2024-10-25 06:03] LABS: Glucose,Whole Blood 80 mg/dL (70-110)
[2024-10-25 08:13] LABS: Basophils % (A) 0 %; Eosinophils # (A) 0.3 k/uL (0-0.7); Eosinophils % (A) 5 %; HCT 28.9 % (39.0-53.0); HGB 9.4 gm/dL (13.0-17.5); Lymphocytes # (A) 0.6 k/uL (1.0-4.8); Lymphocytes % (A) 10 %; MCH 28.5 pg (25.0-35.0); MCHC 32.4 g/dL (31.0-37.0); Mean Platelet Volume 7.9; Monocytes # (A) 0.4 k/uL (0-1.0); Monocytes % (A) 7 %; Neutrophils # (A) 4.2 k/uL (1.3-7.7); Neutrophils % (A) 75 %; Platelet Count 129 k/uL (150-450); RBC 3.29 m/uL (4.30-5.90); WBC 5.6 k/uL (3.8-10.6)
[2024-10-25 08:32] LABS: African American GFR (CKD) 15 (>60 ml/min/1.73 sqM); Anion Gap 6 mmol/L; Blood Urea Nitrogen 39 mg/dL (9-20); Calcium 7.4 mg/dL (8.4-10.2); Carbon Dioxide 26 mmol/L (22-30); Chloride 105 mmol/L (98-107); Glucose 83 mg/dL (74-99); Magnesium 1.7 mg/dL (1.6-2.3); Non-African American GFR(CKD) 13 (>60 ml/min/1.73 sqM); Potassium 3.7 mmol/L (3.5-5.1); Sodium 137 mmol/L (137-145)
--- NOTE | 2024-10-25 11:18 | P.PN ---
Subjective Progress Note Date: 10/24/24 Patient was seen for follow-up. Patient is sleeping at this time. Patient is severely encephalopathic. Patient has undergone placement of dialysis catheter and underwent dialysis today. So far no improvement. Objective - Vital Signs Vital signs: Vital Signs Temp 99.4 F 10/25/24 07:46 Pulse 80 10/25/24 07:46 Resp 18 10/25/24 07:46 BP 121/72 10/25/24 07:46 Pulse Ox 95 10/25/24 07:46 FiO2 Intake & Output 10/24/24 10/25/24 10/25/24 18:59 06:59 18:59 Intake Total 400 Output Total 1025 300 Balance -625 -300 Intake: Hemodialysis 400 Output: Urine 625 300 Hemodialysis 400 Hemodialysis Net Amount 0 Other: Voiding Method Indwelling Catheter Indwelling Catheter # Bowel Movements 1 - Exam Patient was sleeping. No tremors were noticed when he was sleeping. Patient is severely encephalopathic. - Labs CBC & Chem 7: 10/25/24 07:59 10/25/24 07:59 Labs: Abnormal Lab Results - Last 24 Hours (Table) 10/24/24 10/25/24 10/25/24 Range/Units 05:30 07:59 07:59 RBC 3.29 L (4.30-5.90) m/uL Hgb 9.4 L (13.0-17.5) gm/dL Hct 28.9 L (39.0-53.0) % Plt Count 129 L (150-450) k/uL Lymphocytes # 0.6 L (1.0-4.8) k/uL Potassium 3.2 L (3.5-5.5) mmol/L BUN 64.6 H 39 H (9.0-27.0) mg/dL Creatinine 7.2 H 4.43 H (0.6-1.5) mg/dL Est GFR (CKD-EPI) 8 L (>=60) BUN/Creatinine Ratio 8.97 L (12.00-20.00) Ratio Calcium 7.5 L 7.4 L (8.7-10.3) mg/dL ALT 7 L (10-49) U/L Total Protein 4.9 L (6.2-8.2) g/dL Albumin 2.6 L (3.8-4.9) g/dL Albumin/Globulin Ratio 1.13 L (1.60-3.17) Ratio Assessment and Plan Assessment: * Altered mental status, likely due to toxic metabolic encephalopathy * Rule out sepsis/pneumonia * Stage III pressure ulcer of sacral region * Failure to thrive * Hypernatremia, resolved * Acute kidney injury, likely due to ATN, (vancomycin toxicity versus hypotension per nephrology) renal functions, worsening, with creatinine 7.2. Patient started on hemodialysis today. * Advanced Parkinson's, history of DBS placement * Dementia, severe degree * Hydronephrosis with cortical thinning Plan: * Patient has advanced dementia and advanced Parkinson's. He has superimposed severe toxic metabolic encephalopathy due to reasons mentioned above. * EEG was performed, which was abnormal due to background slowing of moderate to severe degree. This is suggestive of generalized cerebral dysfunction as can be seen with toxic metabolic encephalopathy or related to diffuse structural brain abnormality. Clinical correlation is recommended. Intermittent myogenic artifacts were seen in the right or left or bitemporal region during the study from underlying tremor. No epileptiform activity was seen. * Treatment of various metabolic/medical conditions (as mentioned above) as per IM and other specialties on board. * Patient currently on Zosyn and daptomycin. ID on board. * Patient currently on Sinemet 25/100, 3 times daily. * Patient's renal functions are worsening. Nephrology following. Patient started on hemodialysis this morning. * Prognosis very guarded. Patient is no CODE STATUS. * Discussed with nursing staff. * Recheck EEG on Saturday. * Dr. Erwin Neal to start neurology service from Saturday morning.
--- NOTE | 2024-10-25 11:46 | P.PN ---
Subjective Patient seen for follow-up of ELIJAH associated with vancomycin toxicity. Renal function did not improve with IV hydration and continued to worsen. Patient was started on hemodialysis on 10/24/2024 Mentation seems to have improved. Good urine output noted. 1500 mL charted for 24 hours. Scheduled for second treatment of hemodialysis in a.m. Objective - Vital Signs Vital signs: Vital Signs Temp 99.4 F 10/25/24 07:46 Pulse 80 10/25/24 07:46 Resp 18 10/25/24 07:46 BP 121/72 10/25/24 07:46 Pulse Ox 95 10/25/24 07:46 FiO2 Intake & Output 10/24/24 10/25/24 10/25/24 18:59 06:59 18:59 Intake Total 400 Output Total 1025 300 Balance -625 -300 Intake: Hemodialysis 400 Output: Urine 625 300 Hemodialysis 400 Hemodialysis Net Amount 0 Other: Voiding Method Indwelling Catheter Indwelling Catheter # Bowel Movements 1 - Exam Patient is sleeping but arousable. Patient did communicate and answer questions appropriately. Examination of the heart S1 and S2 Examination of the lungs bilateral breath sounds are heard Examination of lower extremity shows no evidence of edema Indwelling [place] catheter noted Moving 4 extremities. - Labs CBC & Chem 7: 10/25/24 07:59 10/25/24 07:59 Labs: Abnormal Lab Results - Last 24 Hours (Table) 10/24/24 10/25/24 10/25/24 Range/Units 05:30 07:59 07:59 RBC 3.29 L (4.30-5.90) m/uL Hgb 9.4 L (13.0-17.5) gm/dL Hct 28.9 L (39.0-53.0) % Plt Count 129 L (150-450) k/uL Lymphocytes # 0.6 L (1.0-4.8) k/uL Potassium 3.2 L (3.5-5.5) mmol/L BUN 64.6 H 39 H (9.0-27.0) mg/dL Creatinine 7.2 H 4.43 H (0.6-1.5) mg/dL Est GFR (CKD-EPI) 8 L (>=60) BUN/Creatinine Ratio 8.97 L (12.00-20.00) Ratio Calcium 7.5 L 7.4 L (8.7-10.3) mg/dL ALT 7 L (10-49) U/L Total Protein 4.9 L (6.2-8.2) g/dL Albumin 2.6 L (3.8-4.9) g/dL Albumin/Globulin Ratio 1.13 L (1.60-3.17) Ratio Assessment and Plan Assessment: 1. Acute kidney injury secondary to vancomycin toxicity versus hypotension induced ATN. Significantly increased creatinine 3.97 on admission, 7.2 yesterday with previous creatinine 0.6 on 10/06/2024. UA significant for protein, blood, RBCs. Vancomycin trough elevated at 50.6 on 10/12, random vancomycin this visit 26.5. Ultrasound of kidneys interpreted as severe right hydronephrosis with cortical thinning. This is chronic with a nonfunctioning right kidney. Started hemodialysis on 10/24/2024 for worsening renal function and altered mentation. 2. 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 3. Hypovolemic hypernatremia associated with acute kidney injury, Improved 4. Metabolic acidosis with anion gap likely from CKD, initial bicarb 13, improving 5. Sacral ulcer stage II on buttock 6. Parkinson's disease 7. HTN with CKD stage I 8. Mental status changes secondary to metabolic/uremic encephalopathy with und erlying dementia and severe Parkinson's disease. Plan: Second treatment of hemodialysis tomorrow Continue to avoid nephrotoxic medications and monitor for recovery of renal function.
[2024-10-25 12:09] LABS: Glucose,Whole Blood 88 mg/dL (70-110)
--- NOTE | 2024-10-25 15:15 | P.PN ---
Subjective Progress Note Date: 10/25/24 Principal diagnosis: Reason for follow-up is pneumonia infected sacral pressure ulcer Patient is a 63-year-old male with a past medical history significant for hypertension Parkinson's recent admission to the hospital for aspiration pneumonia and also have infected sacral pressure ulcer culture positive for MRSA and Pseudomonas treated with the cefepime vancomycin initially that was transitioned to daptomycin in the outpatient setting has been brought back to the hospital concerning for mental status changes unresponsiveness and there was a question of pneumonia. On today's evaluation that is 10/25/2024, Patient did have low-grade fever 100.1 last evening the patient with a temperature of 99.4 this afternoon patient seem to be slightly more awake and alert responding to his name but not a very good historian remains to be on room air no vomiting diarrhea has been reported. Patient white count is 5.6, creatinine is 4.43 blood culture has been negative Objective - Vital Signs Vital signs: Vital Signs Temp 99.4 F 10/25/24 14:00 Pulse 73 10/25/24 14:00 Resp 17 10/25/24 14:00 BP 126/71 10/25/24 14:00 Pulse Ox 97 10/25/24 14:00 FiO2 Intake & Output 10/24/24 10/25/24 10/25/24 18:59 06:59 18:59 Intake Total 400 Output Total 1025 300 Balance -625 -300 Intake: Hemodialysis 400 Output: Urine 625 300 Hemodialysis 400 Hemodialysis Net Amount 0 Other: Voiding Method Indwelling Catheter Indwelling Catheter # Bowel Movements 1 - Exam GENERAL DESCRIPTION: An elderly male lying in bed in no distress RESPIRATORY SYSTEM: Unlabored breathing , decreased breath sounds at bases HEART: S1 S2 regular rate and rhythm , ABDOMEN: Soft , no tenderness EXTREMITIES: No edema feet - Labs CBC & Chem 7: 10/25/24 07:59 10/25/24 07:59 Labs: Abnormal Lab Results - Last 24 Hours (Table) 10/25/24 10/25/24 Range/Units 07:59 07:59 RBC 3.29 L (4.30-5.90) m/uL Hgb 9.4 L (13.0-17.5) gm/dL Hct 28.9 L (39.0-53.0) % Plt Count 129 L (150-450) k/uL Lymphocytes # 0.6 L (1.0-4.8) k/uL BUN 39 H (9-20) mg/dL Creatinine 4.43 H (0.66-1.25) mg/dL Calcium 7.4 L (8.4-10.2) mg/dL Assessment and Plan (1) Pneumonia Current Visit: Yes Status: Acute Code(s): J18.9 - PNEUMONIA, UNSPECIFIED ORGANISM SNOMED Code(s): 099185059 (2) Stage III pressure ulcer of sacral region Current Visit: No Status: Acute Code(s): L89.153 - PRESSURE ULCER OF SACRAL REGION, STAGE 3 SNOMED Code(s): 14201002115720 Plan: 1patient presenting to the hospital with mental status changes decreased level of responsiveness and confusion which is likely multifactorial patient did have evidence of worsening kidney function and uremia could be contributing to it however patient has been on cefepime which can cause mental status changes and confusion. 2possible pneumonia on the chest x-ray keeping in mind the [facility] resident with confusion underlying aspiration and gram-negative pneumonia not entirely excluded 3patient is afebrile white count has been normal, and blood culture negative so far 4patient did have some clinical improvement, currently being treated with daptomycin and Zosyn and monitor clinical course closely Dictation was produced using [employer] dictation software. please excuse any grammatical, word or spelling errors. Time with Patient: Less than 30
[2024-10-25 17:09] LABS: Glucose,Whole Blood 76 mg/dL (70-110)
--- NOTE | 2024-10-25 20:19 | P.PN ---
Subjective Progress Note Date: 10/25/24 This is a pleasant 63 years old male on 10/01 who was recently discharged from this facility for pressure ulcer stage II on IV vancomycin and cefepime. Currently he presents from [facility] for being diaphoretic for 2 days with pressure ulcers on the buttock. Patient cannot provide information , He does not answer questions. He keeps his eye closed and resists opening them, he has a resting tremor, pill rolling tremor in his right hand, he has stiff both upper and lower extremities. Pupils are equal and reactive to light. He has stage II pressure ulcer with some pinkish discoloration, no purulent discharge He has right arm PICC line, he is on IV daptomycin from [facility] started on 10/16 till 10/27 Patient afebrile blood pressure stable WBCs 10.8, hemoglobin 11.5, sodium elevated 151, creatinine 3.9, previously was 1.7 and it was 2, I reviewed the chest x-ray myself .7. Chest x-ray: Airspace opacity projecting the spine correlate for pneumonia per radiologist, I reviewed chest x-ray myself, no significant consolidation, including symmetrical no pleural effusion. 10/19 Patient still confused, does not answer questions. He has pill rolling tremor, yesterday was in his right hand and today in his left hand, he has generalized stiffness most likely related to his Parkinson disease, patient has been confused for the last 3 to 4 days and he was not taking his Parkinson medication, the suspicion of seizure is low however he received Ativan yesterday. CT of the brain was negative neurology service consulted already Also has been treated for sepsis suspected for pressure ulcers also there is suspicion of aspiration pneumonia and currently has been covered with Zosyn. Looks like emergency room team consulted hospice, yesterday after rounding bedside nurse called me stating patient family requesting to talk to hospice team. We are going to talk to family and if they agreeable with going to place NG tube to start his Parkinson medication and other oral medication His hypernatremia and creatinine are trending up. NG tube placed can help also with water flushes He is continued on D5 W at 75 mL/h and dose increased today to 100 mL/h. 10/20 Patient still nonverbal Head of bed at 45 degree NG tube in place Patient is started on water flushes. Also resumed some of his oral medications through NG tube like metoprolol 25 mg as patient blood pressure and heart rate were elevated. No diarrhea. Nutrition consult called for tube feeding Family met with hospice team yesterday per their request, they opted to continue with medical management. No hospice 10/21/2024 Patient is seen in follow-up and mentation is back to baseline. Patient is mostly nonverbal although will say some things per nursing staff. Patient continues with NG tube at this time. Patient is high risk for aspiration and maintained on aspiration precautions. Patient continues on IV antibiotics per ID recommendation. Kidney functions were elevated although significantly improved with concerns of possible error in labs. Patient will need updated PT/OT therapy notes with plans on returning to [facility] once stabilized. 10/22/2024 Patient is seen in follow-up today with multiple consultations following. Patient is unable to have the MRI due to brain stimulator even if turned off per MRI department here. MRI was canceled. Neurology following and will discuss further with family as patient's family is requesting to know the amount of brain functionality patient has. Patient continues to be confused although is more alert today. Creatinine continues to worsen above 6 today and will discuss further with nephrology if there is discussion of possible renal replacement. 10/23/2024 Patient is seen in follow-up today with neurology and nephrology following. Patient continues to have worsening kidney functions up to 7 creatinine today. Nephrology following and discussed with family and placed consult to vascular for temp cath placement to initiate hemodialysis. Patient continues with NG tube as he is NPO and had been aspirating. Dietary consulted and recommending enteral nutrition. Patient does not have a PICC line. 10/24/2024 Patient evaluated in follow up on the medical floor. He has removed his own NG tube. Remains NPO due to signigicant and continued aspiration. He has had right groin temporary hemodialysis catheter placed. Nephrology following. Patient is currently scheduled to undergo hemodialysis. Patient continues on LR at 75 mls/hr. Remains on IV daptomycin. 10/25/2024 Patient evaluated on the medical floor. He is more awake and alert as compared to yesterday although he is not responding to questions. He is mumbling. He appears to be resting comfortably. He underwent fist session of hemodialysis yesterday and patient tolerated. He is making adequate urine output. BUN of 39 today and creatinine of 4.43. Magnesium 1.7. Hemoglobin 9.4. Review of systems: Unable to assess as patient is nonverbal Physical exam: GENERAL: The patient is more awake and alert today although continues with confusion and mostly nonverbal, continued jerking movements likely related to his Parkinson disease, ill-appearing, elderly appearing HEENT: Pupils are round and equally reacting to light. EOMI. No scleral icterus. No conjunctival pallor. Normocephalic, atraumatic. No pharyngeal erythema. No thyromegaly. CARDIOVASCULAR: S1 and S2 muffled PULMONARY: Diminished breath sounds bilaterally otherwise chest is clear to auscultation, no wheezing , no crackles. ABDOMEN: Soft, nontender, nondistended, normoactive bowel sounds. No palpable organomegaly. MUSCULOSKELETAL: No joint swelling or deformity. EXTREMITIES: No cyanosis, clubbing, or pedal edema. NEUROLOGICAL: Continues to be somewhat confused, although is opening eyes and saying some things per nursing staff, he has resting tremor of the right and left hands, he follows some simple commands like squeezing the hands SKIN: No rashes. no petechiae. Assessment: Stage III sacral pressure ulcer with suspected infection, present on admission, blood cultures negative. Recent wound culture in September reveals pseudomonas aeruginosa and presumptive MRSA. Possible aspiration pneumonia Metabolic/toxic encephalopathy multifactorial due to uremia and aspiration pneumonia as well as underlying parkinsons/dementia. Hypernatremia, improving Hypokalemia Acute kidney injury, likely ATN with worsening kidney function up to 7 creatinine today. 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 Cultures are pending at this time Neurology evaluated the patient recommending MRI and power of privacy attorney did turn off stimulator device although per nursing staff our MRI department reports they are unable to perform an MRI, MRI was canceled at this time. Patient is more awake and talking a little more today and following commands. Resume home medication, continue with NG tube for now. Continue n.p.o. NG tube will need to replaced as patient has pulled it out himself. Patient had his first session of hemodialysis had some improvement in his mentation and plans for hemodialysis again tomorrow 10/26/2024. Nephrology following. Family have discussed the possibility of hospice informational meeting although would like to attempt dialysis to see if this improves his mentation. Patient has poor quality of life and hospice would be appropriate. The impression and plan of care has been dictated by Rocío Vasquez, Nurse Practitioner as directed. Dr. Frank MD I have performed a history and examination and MDM of this patient, discussed the same with the dictator, and agree with the dictator's assessment and plan as written ,documented as a scribe. Based on total visit time, I have performed more than 50% of the visit. Objective - Vital Signs Vital signs: Vital Signs Temp 98.8 F 10/25/24 19:42 Pulse 86 10/25/24 19:42 Resp 12 10/25/24 19:42 BP 164/85 10/25/24 19:42 Pulse Ox 96 10/25/24 19:42 FiO2 Intake & Output 10/25/24 10/25/24 10/26/24 06:59 18:59 06:59 Output Total 300 475 Balance -300 -475 Output: Urine 300 475 Other: Voiding Method Indwelling Catheter Indwelling Catheter - Labs CBC & Chem 7: 10/25/24 07:59 10/25/24 07:59 Labs: Abnormal Lab Results - Last 24 Hours (Table) 10/25/24 10/25/24 Range/Units 07:59 07:59 RBC 3.29 L (4.30-5.90) m/uL Hgb 9.4 L (13.0-17.5) gm/dL Hct 28.9 L (39.0-53.0) % Plt Count 129 L (150-450) k/uL Lymphocytes # 0.6 L (1.0-4.8) k/uL BUN 39 H (9-20) mg/dL Creatinine 4.43 H (0.66-1.25) mg/dL Calcium 7.4 L (8.4-10.2) mg/dL Assessment and Plan Time with Patient: Less than 30
[2024-10-25 21:31] LABS: Glucose,Whole Blood 75 mg/dL (70-110)
[2024-10-25] MEDS ORDERED: DEXTROSE 50% SYRINGE 50 ML IVP PRN (21:45)
--- NOTE | 2024-10-25 22:52 | P.PN ---
Subjective Progress Note Date: 10/25/24 Patient was seen for follow-up. Patient is sleeping at this time. Patient is severely encephalopathic. So far no improvement. Objective - Vital Signs Vital signs: Vital Signs Temp 99.4 F 10/25/24 07:46 Pulse 80 10/25/24 07:46 Resp 18 10/25/24 07:46 BP 121/72 10/25/24 07:46 Pulse Ox 95 10/25/24 07:46 FiO2 Intake & Output 10/24/24 10/25/24 10/25/24 18:59 06:59 18:59 Intake Total 400 Output Total 1025 300 Balance -625 -300 Intake: Hemodialysis 400 Output: Urine 625 300 Hemodialysis 400 Hemodialysis Net Amount 0 Other: Voiding Method Indwelling Catheter Indwelling Catheter # Bowel Movements 1 - Exam Patient was sleeping. No tremors were noticed when he was sleeping. Patient is severely encephalopathic. On waking him up, patient somewhat mumbles, difficult to understand, unintelligible speech. - Labs CBC & Chem 7: 10/25/24 07:59 10/25/24 07:59 Labs: Abnormal Lab Results - Last 24 Hours (Table) 10/25/24 10/25/24 Range/Units 07:59 07:59 RBC 3.29 L (4.30-5.90) m/uL Hgb 9.4 L (13.0-17.5) gm/dL Hct 28.9 L (39.0-53.0) % Plt Count 129 L (150-450) k/uL Lymphocytes # 0.6 L (1.0-4.8) k/uL BUN 39 H (9-20) mg/dL Creatinine 4.43 H (0.66-1.25) mg/dL Calcium 7.4 L (8.4-10.2) mg/dL Assessment and Plan Assessment: * Altered mental status, likely due to toxic metabolic encephalopathy * Rule out sepsis/pneumonia * Stage III pressure ulcer of sacral region * Failure to thrive * Hypernatremia, resolved * Acute kidney injury, likely due to ATN, (vancomycin toxicity versus hypotension per nephrology) renal functions, worsening, with creatinine 7.2. Patient started on hemodialysis today. * Advanced Parkinson's, history of DBS placement * Dementia, severe degree * Hydronephrosis with cortical thinning Plan: * Patient has advanced dementia and advanced Parkinson's. He has superimposed severe toxic metabolic encephalopathy due to reasons mentioned above. * EEG was performed, which was abnormal due to background slowing of moderate to severe degree. This is suggestive of generalized cerebral dysfunction as can be seen with toxic metabolic encephalopathy or related to diffuse structural brain abnormality. Clinical correlation is recommended. Intermittent myogenic artifacts were seen in the right or left or bitemporal region during the study from underlying tremor. No epileptiform activity was seen. * Patient continues to be severely encephalopathic. We will repeat EEG in the morning. * Treatment of various metabolic/medical conditions (as mentioned above) as per IM and other specialties on board. * Patient currently on Zosyn and daptomycin. ID on board. * Patient currently on Sinemet 25/100, 3 times daily. * Patient's renal functions are worsening. Nephrology following. Patient started on hemodialysis this morning. * Prognosis very guarded. Patient is no CODE STATUS. * Discussed with nursing staff. * Dr. Erwin Neal to start neurology service from Saturday.
[2024-10-25 23:54] LABS: Glucose,Whole Blood 71 mg/dL (70-110)
[2024-10-26 04:34] LABS: Glucose,Whole Blood 72 mg/dL (70-110)
--- NOTE | 2024-10-26 05:18 | XR ---
EXAM: XR Chest, 1 View CLINICAL HISTORY: ITS.REASON XR Reason: placement of NG tube TECHNIQUE: Frontal view of the chest. COMPARISON: X-ray dated 10/23/2024. FINDINGS: Lungs: Unremarkable. No consolidation. Pleural space: Unremarkable. No pneumothorax. Heart: Unremarkable. No cardiomegaly. Mediastinum: Unremarkable. Normal mediastinal contour. Bones/joints: Unremarkable. No acute fracture. Tubes, lines and devices: Enteric tube is in place with the side-port below level of the diaphragm. animal husbandman overlies the left chest. Right-sided central venous catheter is in place with the tip overlying the expected location of the proximal right subclavian vein/proximal superior vena cava. IMPRESSION: No acute findings in the chest.
[2024-10-26 06:12] LABS: Glucose,Whole Blood 71 mg/dL (70-110)
--- NOTE | 2024-10-26 09:06 | P.PN ---
Subjective Patient is seen in follow-up for acute kidney injury, hemodialysis dependent. Started on hemodialysis October 24, 2024. Has right femoral dialysis catheter. Poor historian. Vital signs are stable. General: Resting in bed. HEENT: NG tube noted. LUNGS: No audible rhonchi or wheezes. HEART: Rate and Rhythm are regular. ABDOMEN: No distention. EXTREMITITES: No edema. Objective - Vital Signs Vital signs: Vital Signs Temp 99 F 10/26/24 07:42 Pulse 89 10/26/24 07:42 Resp 16 10/26/24 07:42 BP 136/77 10/26/24 07:42 Pulse Ox 96 10/26/24 07:42 FiO2 Intake & Output 10/25/24 10/26/24 10/26/24 18:59 06:59 18:59 Output Total 475 425 Balance -475 -425 Output: Urine 475 425 Other: Voiding Method Indwelling Catheter Diaper Indwelling Catheter # Bowel Movements 1 - Labs CBC & Chem 7: 10/25/24 07:59 10/25/24 07:59 Assessment and Plan Plan: Assessment: 1. Acute kidney injury secondary to ATN secondary to vancomycin toxicity. Vancomycin level elevated at 50.6 dated October 12, 2024. Right-sided hydronephrosis noted on kidney ultrasound. This appears to be chronic in nature. Started on hemodialysis October 24, 2024. Baseline creatinine near 0.6-0.7 and peaked at 7.2 this admission. Nonoliguric. 2. Metabolic acidosis secondary to acute kidney injury. Improved. 3. 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 4. Sacral ulcer. 5. Hypertension with chronic kidney disease stage I. 6. Parkinson's disease. Plan: Second treatment of hemodialysis today. Avoid nephrotoxins. Continue to monitor renal function and urine output. Monitor for renal recovery. Maintain IV fluids.
[2024-10-26 09:39] LABS: African American GFR (CKD) 11 (>60 ml/min/1.73 sqM); Anion Gap 7 mmol/L; Blood Urea Nitrogen 44 mg/dL (9-20); Calcium 7.7 mg/dL (8.4-10.2); Carbon Dioxide 28 mmol/L (22-30); Chloride 104 mmol/L (98-107); Glucose 67 mg/dL (74-99); Non-African American GFR(CKD) 10 (>60 ml/min/1.73 sqM); Potassium 4.2 mmol/L (3.5-5.1); Sodium 139 mmol/L (137-145)
[2024-10-26 12:37] LABS: Glucose,Whole Blood 68 mg/dL (70-110)
[2024-10-26] MEDS: DEXTROSE 50% SYRINGE 50 ML IVP PRN (12:44)
[2024-10-26 13:18] LABS: Glucose,Whole Blood 122 mg/dL (70-110)
[2024-10-26] MEDS: LIDOCAINE 1% INJ 10MG/ML (20 ML MDV) SQ ONE (16:44)
[2024-10-26] MEDS: IV FLUID CONTINUATION 350 ML IV ONE (16:44)
[2024-10-26] MEDS: HEPARIN SODIUM,PORCINE 10,000 UNIT in SODIUM CHLORIDE 0.9% 1,000 ML IRRIGATION ONE (16:51)
[2024-10-26] MEDS: IOPAMIDOL-370 100ML BTL INJ ONE ×2 (16:54)
[2024-10-26] MEDS: HEPARIN SODIUM 1,000 UN/ML (10ML VL) IV ONE (17:01)
--- NOTE | 2024-10-26 17:04 | P.GSCN ---
History of Present Illness Consult date: 10/26/24 Reason for Consult: Right hydronephrosis History of present illness: This is a 63-year-old male admitted to the hospital with a pneumonia. Patient is nonverbal was slightly limited history was obtained. Urology is consulted for ultrasound finding of right-sided hydronephrosis. This is a known finding. Patient had a CT abdomen and pelvis August 31, 2024 that showed evidence of right-sided hydronephrosis with a completely atrophic kidney. Patient does have an acute kidney injury during this admission and is currently on dialysis acute kidney injury secondary to ATN versus toxicity from vancomycin. He is making urine with no evidence of gross hematuria Review of Systems ROS unobtainable: due to mental status Past Medical History Past Medical History: Hypertension Additional Past Medical History / Comment(s): parkinsons DNR-10/17/2024 History of Any Multi-Drug Resistant Organisms: MRSA Year Discovered:: 09/30/24 MDRO Source:: buttock Past Surgical History: No Surgical Hx Reported Additional Past Surgical History / Comment(s): deep brain stimulator Past Anesthesia/Blood Transfusion Reactions: No Reported Reaction Past Psychological History: No Psychological Hx Reported Smoking Status: Former smoker Past Alcohol Use History: Occasional Past Drug Use History: Marijuana - Past Family History Father Family Medical History: Unable to Obtain Mother Family Medical History: Unable to Obtain Medications and Allergies Home Medications Medication Instructions Recorded Confirmed Type Atorvastatin [Lipitor] 20 mg PO HS@2100 08/31/24 10/18/24 History atenoloL [Tenormin] 25 mg PO DAILY@0600 08/31/24 10/18/24 History Loperamide [Imodium] 2 mg PO QID PRN cap 09/16/24 10/18/24 Rx Carbidopa-Levodopa 25-100 mg 1 tab PO AC-TID 09/30/24 10/18/24 History [Sinemet 25-100 mg] Cholestyramine (with Sugar) 4 gm PO BID@0800,1700 09/30/24 10/18/24 History [Questran Packet] Ensure Enlive 237 ml PO TID@0800,1200,1700 09/30/24 10/18/24 History Heparin Sodium,Porcine (1 ml) 5,000 unit SQ Q12HR@0800,2100 09/30/24 10/18/24 Hi story [Heparin Sodium] Ipratropium-Albuterol Nebulize 3 ml INHALATION RT-Q6H 09/30/24 10/18/24 History [Duoneb 0.5 mg-3 mg/3 ml Soln] Liquacel 30 ml PO DAILY@0800 09/30/24 10/18/24 History Magic Cup 1 dose PO DAILY@1200 09/30/24 10/18/24 History Magnesium Hydroxide [Milk of 7,200 mg PO DAILY PRN 09/30/24 10/18/24 History Magnesia Concentrate] Na Phos,M-B/Na Phos,Di-Ba [Fleet 133 ml RECTAL DAILY PRN 09/30/24 10/18/24 History Adult] bisacodyL [Dulcolax] 10 mg RECTAL DAILY PRN 09/30/24 10/18/24 History Acetaminophen Tab [Tylenol] 650 mg PO Q6HR PRN 10/18/24 10/18/24 History Cefepime [Maxipime] 2 gm IVPB Q8HR@0600,1400,2200 10/18/24 10/18/24 History DAPTOmycin 350 mg IV DAILY@0800 10/18/24 10/18/24 History HYDROcodone/APAP [Normal Elixir 10 ml PO Q6H PRN 10/18/24 10/18/24 History 7.5-325Mg/15Ml] LORazepam [Ativan] 0.5 mg PO Q8H PRN 10/18/24 10/18/24 History Melatonin 5 mg PO HS@2100 10/18/24 10/18/24 History Allergies Allergy/AdvReac Type Severity Reaction Status Date / Time No Known Allergies Allergy Verified 10/18/24 12:01 Surgical - Exam Vital Signs Temp Pulse Resp BP Pulse Ox 98.0 F 86 18 108/61 97 10/17/24 19:09 10/17/24 19:09 10/17/24 19:09 10/17/24 19:09 10/17/24 19:09 - General no distress, no pain - Respiratory normal expansion, normal respiratory effort - Abdomen Abdomen: soft, non tender, no distended Results - Labs 10/25/24 07:59 10/26/24 09:02 Abnormal Lab Results - Last 24 Hours (Table) 10/26/24 10/26/24 10/26/24 Range/Units 09:02 12:27 13:16 BUN 44 H (9-20) mg/dL Creatinine 5.58 H (0.66-1.25) mg/dL Glucose 67 L (74-99) mg/dL POC Glucose (mg/dL) 68 L 122 H (70-110) mg/dL Calcium 7.7 L (8.4-10.2) mg/dL Diabetes panel 10/26/24 Range/Units 09:02 Sodium 139 (137-145) mmol/L Potassium 4.2 (3.5-5.1) mmol/L Chloride 104 (98-107) mmol/L Carbon Dioxide 28 (22-30) mmol/L BUN 44 H (9-20) mg/dL Creatinine 5.58 H (0.66-1.25) mg/dL Glucose 67 L (74-99) mg/dL Calcium 7.7 L (8.4-10.2) mg/dL Calcium panel 10/26/24 Range/Units 09:02 Calcium 7.7 L (8.4-10.2) mg/dL Pituitary panel 10/26/24 Range/Units 09:02 Sodium 139 (137-145) mmol/L Potassium 4.2 (3.5-5.1) mmol/L Chloride 104 (98-107) mmol/L Carbon Dioxide 28 (22-30) mmol/L BUN 44 H (9-20) mg/dL Creatinine 5.58 H (0.66-1.25) mg/dL Glucose 67 L (74-99) mg/dL Calcium 7.7 L (8.4-10.2) mg/dL Adrenal panel 10/26/24 Range/Units 09:02 Sodium 139 (137-145) mmol/L Potassium 4.2 (3.5-5.1) mmol/L Chloride 104 (98-107) mmol/L Carbon Dioxide 28 (22-30) mmol/L BUN 44 H (9-20) mg/dL Creatinine 5.58 H (0.66-1.25) mg/dL Glucose 67 L (74-99) mg/dL Calcium 7.7 L (8.4-10.2) mg/dL Assessment and Plan Assessment: 63-year-old male with history of right-sided hydronephrosis. On review of CT right kidney is completely atrophic. The hydronephrosis is not the cause of the acute kidney injury given the atrophic kidney. From urology standpoint patient appears asymptomatic thus no further intervention is needed. His right kidney is not producing any renal function at this time.
--- NOTE | 2024-10-26 17:06 | P.PCN ---
Description of Procedure: Preop diagnosis is acute chronic renal failure Postop the same procedure patient brought to the [facility] right groin was prepped and draped in Prestel manner patient had a dialysis catheter placed in the groin catheter was not working right groin was prepped and draped in Prestel manner guidewire was passed through the catheter and old catheter was removed and a dilator was advanced up the guidewire we treated the inferior venacavogram no clot was seen we placed a 30 cm dialysis catheter on the top of the Glidewire flushed with heparin saline hep-locked secured with 3-0 nylon completion venacavogram shows catheter in good position patient has a small vena cava good flow was noted patient was transferred to the room in satisfactory condition
[2024-10-26 17:26] LABS: Glucose,Whole Blood 71 mg/dL (70-110)
[2024-10-26 21:16] LABS: Glucose,Whole Blood 75 mg/dL (70-110)
--- NOTE | 2024-10-27 00:54 | P.PN ---
Subjective Progress Note Date: 10/26/24 This is a pleasant 63 years old male on 10/01 who was recently discharged from this facility for pressure ulcer stage II on IV vancomycin and cefepime. Currently he presents from residential for being diaphoretic for 2 days with pressure ulcers on the buttock. Patient cannot provide information , He does not answer questions. He keeps his eye closed and resists opening them, he has a resting tremor, pill rolling tremor in his right hand, he has stiff both upper and lower extremities. Pupils are equal and reactive to light. He has stage II pressure ulcer with some pinkish discoloration, no purulent discharge He has right arm PICC line, he is on IV daptomycin from residential started on 10/16 till 10/27 Patient afebrile blood pressure stable WBCs 10.8, hemoglobin 11.5, sodium elevated 151, creatinine 3.9, previously was 1.7 and it was 2, I reviewed the chest x-ray myself .7. Chest x-ray: Airspace opacity projecting the spine correlate for pneumonia per radiologist, I reviewed chest x-ray myself, no significant consolidation, including symmetrical no pleural effusion. 10/19 Patient still confused, does not answer questions. He has pill rolling tremor, yesterday was in his right hand and today in his left hand, he has generalized stiffness most likely related to his Parkinson disease, patient has been confused for the last 3 to 4 days and he was not taking his Parkinson medication , the suspicion of seizure is low however he received Ativan yesterday. CT of the brain was negative neurology service consulted already Also has been treated for sepsis suspected for pressure ulcers also there is suspicion of aspiration pneumonia and currently has been covered with Zosyn. Looks like emergency room team consulted hospice, yesterday after rounding bedside nurse called me stating patient family requesting to talk to hospice team. We are going to talk to family and if they agreeable with going to place NG tube to start his Parkinson medication and other oral medication His hypernatremia and creatinine are trending up. NG tube placed can help also with water flushes He is continued on D5 W at 75 mL/h and dose increased today to 100 mL/h. 10/20 Patient still nonverbal Head of bed at 45 degree NG tube in place Patient is started on water flushes. Also resumed some of his oral medications through NG tube like metoprolol 25 mg as patient blood pressure and heart rate were elevated. No diarrhea. Nutrition consult called for tube feeding Family met with hospice team yesterday per their request, they opted to continue with medical management. No hospice 10/21/2024 Patient is seen in follow-up and mentation is back to baseline. Patient is mostly nonverbal although will say some things per nursing staff. Patient continues with NG tube at this time. Patient is high risk for aspiration and maintained on aspiration precautions. Patient continues on IV antibiotics per ID recommendation. Kidney functions were elevated although significantly improved with concerns of possible error in labs. Patient will need updated PT/OT therapy notes with plans on returning to ECF once stabilized. 10/22/2024 Patient is seen in follow-up today with multiple consultations following. Patient is unable to have the MRI due to brain stimulator even if turned off per MRI department here. MRI was canceled. Neurology following and will discuss further with family as patient's family is requesting to know the amount of brain functionality patient has. Patient continues to be confused although is more alert today. Creatinine continues to worsen above 6 today and will discuss further with nephrology if there is discussion of possible renal replacement. 10/23/2024 Patient is seen in follow-up today with neurology and nephrology following. Patient continues to have worsening kidney functions up to 7 creatinine today. Nephrology following and discussed with family and placed consult to vascular for temp cath placement to initiate hemodialysis. Patient continues with NG tube as he is NPO and had been aspirating. Dietary consulted and recommending enteral nutrition. Patient does not have a PICC line. 10/24/2024 Patient evaluated in follow up on the medical floor. He has removed his own NG tube. Remains NPO due to signigicant and continued aspiration. He has had right groin temporary hemodialysis catheter placed. Nephrology following. Patient is currently scheduled to undergo hemodialysis. Patient continues on LR at 75 mls/hr. Remains on IV daptomycin. 10/25/2024 Patient evaluated on the medical floor. He is more awake and alert as compared to yesterday although he is not responding to questions. He is mumbling. He appears to be resting comfortably. He underwent fist session of hemodialysis yesterday and patient tolerated. He is making adequate urine output. BUN of 39 today and creatinine of 4.43. Magnesium 1.7. Hemoglobin 9.4. 10/26/2024 Patient is seen in follow-up today and is asleep although arousable, mostly nonverbal. Multiple consultations following including nephrology and patient scheduled to undergo hemodialysis today although it appears dialysis catheter is clotted and vascular surgery reconsulted for replacement. To discuss further with family regarding overall treatment plan. Patient has not eaten and is high risk for aspiration although not awake enough to tolerate any form of diet. Mentation not significantly improved from admission Review of systems: Unable to assess as patient is nonverbal Physical exam: GENERAL: The patient is more awake and alert today although continues with confusion and mostly nonverbal, continued jerking movements likely related to his Parkinson disease, ill-appearing, elderly appearing HEENT: Pupils are round and equally reacting to light. EOMI. No scleral icterus. No conjunctival pallor. Normocephalic, atraumatic. No pharyngeal erythema. No thyromegaly. CARDIOVASCULAR: S1 and S2 muffled PULMONARY: Diminished breath sounds bilaterally otherwise chest is clear to auscultation, no wheezing , no crackles. ABDOMEN: Soft, nontender, nondistended, normoactive bowel sounds. No palpable organomegaly. MUSCULOSKELETAL: No joint swelling or deformity. EXTREMITIES: No cyanosis, clubbing, or pedal edema. NEUROLOGICAL: Continues to be somewhat confused, although is opening eyes and saying some things per nursing staff, he has resting tremor of the right and left hands, he follows some simple commands like squeezing the hands SKIN: No rashes. no petechiae. Assessment: Stage III sacral pressure ulcer with suspected infection, present on admission, blood cultures negative. Recent wound culture in September reveals pseudomonas aeruginosa and presumptive MRSA. Possible aspiration pneumonia Metabolic/toxic encephalopathy multifactorial due to uremia and aspiration pneumonia as well as underlying parkinsons/dementia. Hypernatremia, improving Hypokalemia Acute kidney injury, likely ATN with worsening kidney function, started on hemodialysis per nephrology Parkinson disease, patient has resting tremor in his right hand and generalized stiffness, he is not taking his medication with nonadherence to medication, has a stimulator Congenital UPJ with nonfunctioning right kidney and chronic right hydronephrosis, no need for any intervention per urologist recently evaluated him during last admission Hypertension Hyperlipidemia GI prophylaxis DVT prophylaxis No code Plan: Continue with Zosyn and daptomycin with infectious disease following. Blood cultures remain negative Neurology evaluated the patient recommending MRI and power of contracts attorney did turn off stimulator device although per nursing staff our MRI department reports they are unable to perform an MRI, MRI was canceled at this time. Patient is more awake and talking a little more today and following commands. Resume home medication, continue with NG tube for now. Continue n.p.o. NG tube will need to replaced as patient has pulled it out himself. Per nursing staff, NG tube has been pulled multiple times this admission Patient had his first session of hemodialysis had some improvement in his mentation and planned for hemodialysis today although dialysis catheter was u nable to flush noted to be clotted and vascular surgery reconsulted for replacement of dialysis catheter. Family have discussed the possibility of hospice informational meeting although would like to attempt dialysis to see if this improves his mentation. Patient has poor quality of life and hospice would be appropriate. The impression and plan of care has been dictated by Maye Johnson, Nurse Practitioner as directed. Dr. Frank MD I have performed a history and examination and MDM of this patient, discussed the same with the dictator, and agree with the dictator's assessment and plan as written ,documented as a scribe. Based on total visit time, I have performed more than 50% of the visit. Objective - Vital Signs Vital signs: Vital Signs Temp 99 F 10/26/24 07:42 Pulse 89 10/26/24 07:42 Resp 16 10/26/24 07:42 BP 136/77 10/26/24 07:42 Pulse Ox 96 10/26/24 07:42 FiO2 Intake & Output 10/25/24 10/26/24 10/26/24 18:59 06:59 18:59 Output Total 475 425 Balance -475 -425 Output: Urine 475 425 Other: Voiding Method Indwelling Catheter Diaper Indwelling Catheter # Bowel Movements 1 - Labs CBC & Chem 7: 10/25/24 07:59 10/26/24 09:02
--- NOTE | 2024-10-27 01:41 | EEG ---
ELECTROENCEPHALOGRAM REPORT CLINICAL HISTORY: This is a 63-year-old gentleman with history of Parkinson's, status post deep brain stimulation, who has altered mental status. The video EEG is obtained to evaluate for seizure epileptiform activity. RELEVANT MEDICATION: The patient is not on any antiseizure medication. EEG TYPE: This is a routine 21-channel EEG with video using the 10/20 electrode placement system. DESCRIPTION: Wakefulness is obtained. During the beginning of the study and towards the last few minutes of the study, it is hard to assess the background because of the severe diffuse myogenic artifact since the patient has deep brain stimulator, so the deep brain stimulator was stopped for the study and the background consists of [id number] voltage of 5 to 6 hertz activity intermixed with delta activity. There is no physiological stage 2 sleep architecture. There is no focal slowing. Interictal and ictal is none. ACTIVATION PROCEDURE: Photic stimulation and hyperventilation are not performed. CLINICAL INTERPRETATION: This is an abnormal routine EEG. The background slowing is suggestive of moderate to severe encephalopathy. There is no focal slowing, epileptiform discharge, or seizure on the EEG. There is myogenic artifact during the beginning of the study and the last few minutes of the study because of the deep brain stimulation. Clinical correlation is recommended. CHIKA / JANNETHN: [id number] / MIKI
[2024-10-27 06:10] LABS: Glucose,Whole Blood 79 mg/dL (70-110)
--- NOTE | 2024-10-27 07:54 | P.PN ---
Subjective Progress Note Date: 10/26/24 Principal diagnosis: Reason for follow-up is pneumonia infected sacral pressure ulcer Patient is a 63-year-old male with a past medical history significant for hypertension Parkinson's recent admission to the hospital for aspiration pneumonia and also have infected sacral pressure ulcer culture positive for MRSA and Pseudomonas treated with the cefepime vancomycin initially that was transitioned to daptomycin in the outpatient setting has been brought back to the hospital concerning for mental status changes unresponsiveness and there was a question of pneumonia. On today's evaluation that is 10/26/2024, patient has been afebrile, patient is breathing comfortably and is currently on room air, patient is lethargic did not answer any question no vomiting diarrhea and the changes reported by the nursing staff. Patient did have a creatinine of 5.58 no CBC was done today blood culture has been negative Objective - Vital Signs Vital signs: Vital Signs Temp 99 F 10/26/24 07:42 Pulse 89 10/26/24 07:42 Resp 16 10/26/24 07:42 BP 136/77 10/26/24 07:42 Pulse Ox 96 10/26/24 07:42 FiO2 Intake & Output 10/25/24 10/26/24 10/26/24 18:59 06:59 18:59 Output Total 475 425 Balance -475 -425 Output: Urine 475 425 Other: Voiding Method Indwelling Catheter Diaper Indwelling Catheter # Bowel Movements 1 - Exam GENERAL DESCRIPTION: An elderly male lying in bed in no distress RESPIRATORY SYSTEM: Unlabored breathing , decreased breath sounds at bases HEART: S1 S2 regular rate and rhythm , ABDOMEN: Soft , no tenderness EXTREMITIES: No edema feet - Labs CBC & Chem 7: 10/25/24 07:59 10/26/24 09:02 Labs: Abnormal Lab Results - Last 24 Hours (Table) 10/26/24 Range/Units 09:02 BUN 44 H (9-20) mg/dL Creatinine 5.58 H (0.66-1.25) mg/dL Glucose 67 L (74-99) mg/dL Calcium 7.7 L (8.4-10.2) mg/dL Assessment and Plan (1) Pneumonia Current Visit: Yes Status: Acute Code(s): J18.9 - PNEUMONIA, UNSPECIFIED ORGANISM SNOMED Code(s): 618511835 (2) Stage III pressure ulcer of sacral region Current Visit: No Status: Acute Code(s): L89.153 - PRESSURE ULCER OF SACRAL REGION, STAGE 3 SNOMED Code(s): 63879102950789 Plan: 1patient presenting to the hospital with mental status changes decreased level of responsiveness and confusion which is likely multifactorial patient did have evidence of worsening kidney function and uremia could be contributing to it however patient has been on cefepime which can cause mental status changes and confusion. 2possible pneumonia on the chest x-ray keeping in mind the care home resident with confusion underlying aspiration and gram-negative pneumonia not entirely excluded 3patient is afebrile white count has been normal, and blood culture negative so far 4patient is currently being treated with daptomycin and Zosyn and monitor clinical course closely Dictation was produced using [employer] dictation software. please excuse any grammatical, word or spelling errors. Time with Patient: Less than 30
--- NOTE | 2024-10-27 07:58 | IR ---
EXAMINATION TYPE: IR cvc insert non tunneled DATE OF EXAM: 10/27/2024 7:50 AM COMPARISON: Pre Operative Images if available both CT/MRI or plain film CLINICAL INDICATION: Male, 63 years old with history of RENAL FAILURE; TECHNIQUE: IR cvc insert non tunneled, multiple fluoroscopic images provided for procedure. DAP: 2082.4 [employer] . FINDINGS: IMPRESSION: 1. Report was generated for administrative purposes only. 2. Please see the operative/procedural note for further details. [facility], , 10/27/2024 7:55 AM
[2024-10-27 09:36] LABS: Glucose,Whole Blood 82 mg/dL (70-110)
--- NOTE | 2024-10-27 09:59 | P.PN ---
Subjective Patient is seen in follow-up for acute kidney injury, hemodialysis dependent. Started on hemodialysis October 24, 2024. Has right femoral dialysis catheter. The catheter was exchanged October 26, 2024. Scheduled for second treatment of dialysis today. Poor historian. Vital signs are stable. General: Resting in bed. HEENT: NG tube noted. LUNGS: No audible rhonchi or wheezes. HEART: Rate and Rhythm are regular. ABDOMEN: No distention. EXTREMITITES: No edema. Objective - Vital Signs Vital signs: Vital Signs Temp 98.9 F 10/27/24 08:00 Pulse 83 10/27/24 08:00 Resp 14 10/27/24 08:00 BP 135/77 10/27/24 08:00 Pulse Ox 93 L 10/27/24 08:00 FiO2 Intake & Output 10/26/24 10/27/24 10/27/24 18:59 06:59 18:59 Intake Total 31 Output Total 650 400 Balance -619 -400 Weight 78.925 kg Intake: IV 31 Output: Urine 650 400 Other: Voiding Method Diaper Diaper Indwelling Catheter Indwelling Catheter - Labs CBC & Chem 7: 10/25/24 07:59 10/26/24 09:02 Labs: Abnormal Lab Results - Last 24 Hours (Table) 10/26/24 10/26/24 Range/Units 12:27 13:16 POC Glucose (mg/dL) 68 L 122 H (70-110) mg/dL Assessment and Plan Plan: Assessment: 1. Acute kidney injury secondary to ATN secondary to vancomycin toxicity. Vancomycin level elevated at 50.6 dated October 12, 2024. Right-sided hydronephrosis noted on kidney ultrasound. This appears to be chronic in nature. Started on hemodialysis October 24, 2024. Baseline creatinine near 0.6-0.7 and peaked at 7.2 this admission. Nonoliguric. 2. Metabolic acidosis secondary to acute kidney injury. Improved. 3. 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 4. Sacral ulcer. 5. Hypertension with chronic kidney disease stage I. 6. Parkinson's disease. Plan: Second treatment of hemodialysis today. Right femoral dialysis catheter was not functioning and was exchanged October 26, 2024. Avoid nephrotoxins. Continue to monitor renal function and urine output. Monitor for renal recovery. Maintain IV fluids.
[2024-10-27] MEDS: ACETAMINOPHEN TAB 325 MG TAB PO PRN (12:04)
[2024-10-27 12:07] LABS: Glucose,Whole Blood 75 mg/dL (70-110)
--- NOTE | 2024-10-27 13:56 | P.PN ---
Subjective Progress Note Date: 10/27/24 Principal diagnosis: Reason for follow-up is pneumonia infected sacral pressure ulcer Patient is a 63-year-old male with a past medical history significant for hypertension Parkinson's recent admission to the hospital for aspiration pneumonia and also have infected sacral pressure ulcer culture positive for MRSA and Pseudomonas treated with the cefepime vancomycin initially that was transitioned to daptomycin in the outpatient setting has been brought back to the hospital concerning for mental status changes unresponsiveness and there was a question of pneumonia. On today's evaluation that is 10/27/2024, the patient did spike low-grade fever of 100.1 last evening and elevated of 101 F close to normal patient remains to be lethargic sleepy did not provide any history no vomiting diarrhea any changes reported by the nursing staff. Patient did not have lab draw today patient blood culture has been negative Objective - Vital Signs Vital signs: Vital Signs Temp 99.5 F 10/27/24 12:03 Pulse 86 10/27/24 12:03 Resp 18 10/27/24 12:03 BP 141/73 10/27/24 12:03 Pulse Ox 93 L 10/27/24 12:03 FiO2 Intake & Output 10/26/24 10/27/24 10/27/24 18:59 06:59 18:59 Intake Total 31 500 Output Total 650 400 500 Balance -619 -400 0 Weight 78.925 kg Intake: IV 31 Hemodialysis 500 Output: Urine 650 400 Hemodialysis 500 Hemodialysis Net Amount 0 Other: Voiding Method Diaper Diaper Indwelling Catheter Indwelling Catheter - Exam GENERAL DESCRIPTION: An elderly male lying in bed in no distress RESPIRATORY SYSTEM: Unlabored breathing , decreased breath sounds at bases HEART: S1 S2 regular rate and rhythm , ABDOMEN: Soft , no tenderness , sacral wound is mostly with deep tissue injury now with no slough tissue or surrounding redness EXTREMITIES: No edema feet - Labs CBC & Chem 7: 10/25/24 07:59 10/26/24 09:02 Assessment and Plan (1) Pneumonia Current Visit: Yes Status: Acute Code(s): J18.9 - PNEUMONIA, UNSPECIFIED ORGANISM SNOMED Code(s): 586497757 (2) Stage III pressure ulcer of sacral region Current Visit: No Status: Acute Code(s): L89.153 - PRESSURE ULCER OF SACRAL REGION, STAGE 3 SNOMED Code(s): 71517394892326 Plan: 1patient presenting to the hospital with mental status changes decreased level of responsiveness and confusion which is likely multifactorial patient did have evidence of worsening kidney function and uremia could be contributing to it however patient has been on cefepime which can cause mental status changes and confusion. 2possible pneumonia on the chest x-ray keeping in mind the long term resid ent with confusion underlying aspiration and gram-negative pneumonia not entirely excluded 3patient did have a new fever we will repeat a blood culture and check inflammatory markers 4patient will continue with daptomycin and Zosyn and switch local wound care to the dry Aquacel silver dressing keep the area off the pressure Dictation was produced using [employer] dictation software. please excuse any grammatical, word or spelling errors. Time with Patient: Less than 30
--- NOTE | 2024-10-27 14:42 | P.PN ---
Subjective Progress Note Date: 10/27/24 I am seeing the patient for the first time during this admission. It seems the patient has AMS due to Toxic-metabolic encephalopathy. Per the nurse, today he stated his name and the first time he interacted with her. He is currently getting dialysis and per distribution engineering technologist he is not responding. Objective - Vital Signs Vital signs: Vital Signs Temp 99.5 F 10/27/24 12:03 Pulse 86 10/27/24 12:03 Resp 18 10/27/24 12:03 BP 141/73 10/27/24 12:03 Pulse Ox 93 L 10/27/24 12:03 FiO2 Intake & Output 10/26/24 10/27/24 10/27/24 18:59 06:59 18:59 Intake Total 31 500 Output Total 650 400 500 Balance -619 -400 0 Weight 78.925 kg Intake: IV 31 Hemodialysis 500 Output: Urine 650 400 Hemodialysis 500 Hemodialysis Net Amount 0 Other: Voiding Method Diaper Diaper Indwelling Catheter Indwelling Catheter - Exam General: Lying in bed and does not appear in acute distress. Is currently getting dialysis. HENT: Has NG tube. Neuro: Very limited. Is not verbally responding. He followed one simple commands and that is wiggled his toes. Has increase tone in uppers. - Labs CBC & Chem 7: 10/25/24 07:59 10/26/24 09:02 Assessment and Plan Assessment: * Altered mental status, likely due to toxic metabolic encephalopathy * Rule out sepsis/pneumonia * Stage III pressure ulcer of sacral region * Failure to thrive * Hypernatremia, resolved * Acute kidney injury, likely due to ATN, (vancomycin toxicity versus hypotension per nephrology) renal functions, worsening, with creatinine 7.2. Patient started on hemodialysis today. * Advanced Parkinson's, history of DBS placement * Dementia, severe degree * Hydronephrosis with cortical thinning Plan: * EEG was performed, which was abnormal due to background slowing of moderate to severe degree. This is suggestive of generalized cerebral dysfunction as can be seen with toxic metabolic encephalopathy or related to diffuse structural brain abnormality. Clinical correlation is recommended. Intermittent myogenic artifacts were seen in the right or left or bitemporal region during the study from underlying tremor. No epileptiform activity was seen. * Repeat EEG: Is abnormal. The background slowing is suggestive of moderate to severe encephalopathy. There is no focal slowing, epileptiform discharge or seizure. There is myogenic artifact during the begining of study and last few minutes of study because of Deep Brain Stimulation. * Treatment of various metabolic/medical conditions (as mentioned above) as per IM and other specialties on board. * Patient currently on Zosyn and daptomycin. ID on board. * Patient currently on Sinemet 25/100, 3 times daily. * Patient's renal functions are worsening. Nephrology following. Patient started on hemodialysis. * Prognosis very guarded. Patient is no CODE STATUS. The plan is discussed with the nurse. Time with Patient: Less than 30
[2024-10-27 15:18] LABS: BUN/Creat Ratio 6.95 Ratio (12.00-20.00); Blood Urea Nitrogen 38.9 mg/dL (9.0-27.0); Calcium 7.4 mg/dL (8.7-10.3); Carbon Dioxide 22.6 mmol/L (21.6-31.8); Chloride 108 mmol/L (96-109); Glucose 76 mg/dL (70-110); Magnesium 1.6 mg/dL (1.5-2.4); Potassium 3.7 mmol/L (3.5-5.5); Sodium 145 mmol/L (135-145)
[2024-10-27] MEDS: ACETAMINOPHEN IV (For NPO) 1,000 MG in EMPTY BAG 1 BAG IVPB PRN (17:46)
[2024-10-27 18:01] LABS: Glucose,Whole Blood 69 mg/dL (70-110)
[2024-10-27 18:43] LABS: Glucose,Whole Blood 153 mg/dL (70-110)
[2024-10-27 22:33] LABS: Appearance,Urine Cloudy (Clear); Bacteria,Urine Rare /hpf; Bilirubin,Urine Negative (Negative); Blood,Urine Large (Negative); Color,Urine Yellow; Glucose,Urine (UA) Negative (Negative); Ketones,Urine 1+ (Negative); Leukocyte Esterase,Urine Negative (Negative); Mucus,Urine Rare /hpf; Nitrite,Urine Negative (Negative); PH, Urine 5.5 (5.0-8.0); Protein,Urine 1+ (Negative); RBC,Urine 112 /hpf (0-5); Specific Gravity,Urine 1.016 (1.001-1.035); Urobilinogen,Urine <2.0 mg/dL (<2.0); WBC,Urine 7 /hpf (0-5)
[2024-10-27 23:59] LABS: Glucose,Whole Blood 76 mg/dL (70-110)
[2024-10-28 06:01] LABS: Glucose,Whole Blood 79 mg/dL (70-110)
--- NOTE | 2024-10-28 06:18 | P.PN ---
Subjective Progress Note Date: 10/27/24 This is a pleasant 63 years old male on 10/01 who was recently discharged from this facility for pressure ulcer stage II on IV vancomycin and cefepime. Currently he presents from senior living for being diaphoretic for 2 days with pressure ulcers on the buttock. Patient cannot provide information , He does not answer questions. He keeps his eye closed and resists opening them, he has a resting tremor, pill rolling tremor in his right hand, he has stiff both upper and lower extremities. Pupils are equal and reactive to light. He has stage II pressure ulcer with some pinkish discoloration, no purulent discharge He has right arm PICC line, he is on IV daptomycin from senior living started on 10/16 till 10/27 Patient afebrile blood pressure stable WBCs 10.8, hemoglobin 11.5, sodium elevated 151, creatinine 3.9, previously was 1.7 and it was 2, I reviewed the chest x-ray myself .7. Chest x-ray: Airspace opacity projecting the spine correlate for pneumonia per radiologist, I reviewed chest x-ray myself, no significant consolidation, including symmetrical no pleural effusion. 10/19 Patient still confused, does not answer questions. He has pill rolling tremor, yesterday was in his right hand and today in his left hand, he has generalized stiffness most likely related to his Parkinson disease, patient has been confused for the last 3 to 4 days and he was not taking his Parkinson medication , the suspicion of seizure is low however he received Ativan yesterday. CT of the brain was negative neurology service consulted already Also has been treated for sepsis suspected for pressure ulcers also there is suspicion of aspiration pneumonia and currently has been covered with Zosyn. Looks like emergency room team consulted hospice, yesterday after rounding bedside nurse called me stating patient family requesting to talk to hospice team. We are going to talk to family and if they agreeable with going to place NG tube to start his Parkinson medication and other oral medication His hypernatremia and creatinine are trending up. NG tube placed can help also with water flushes He is continued on D5 W at 75 mL/h and dose increased today to 100 mL/h. 10/20 Patient still nonverbal Head of bed at 45 degree NG tube in place Patient is started on water flushes. Also resumed some of his oral medications through NG tube like metoprolol 25 mg as patient blood pressure and heart rate were elevated. No diarrhea. Nutrition consult called for tube feeding Family met with hospice team yesterday per their request, they opted to continue with medical management. No hospice 10/21/2024 Patient is seen in follow-up and mentation is back to baseline. Patient is mostly nonverbal although will say some things per nursing staff. Patient continues with NG tube at this time. Patient is high risk for aspiration and maintained on aspiration precautions. Patient continues on IV antibiotics per ID recommendation. Kidney functions were elevated although significantly improved with concerns of possible error in labs. Patient will need updated PT/OT therapy notes with plans on returning to ECF once stabilized. 10/22/2024 Patient is seen in follow-up today with multiple consultations following. Patient is unable to have the MRI due to brain stimulator even if turned off per MRI department here. MRI was canceled. Neurology following and will discuss further with family as patient's family is requesting to know the amount of brain functionality patient has. Patient continues to be confused although is more alert today. Creatinine continues to worsen above 6 today and will discuss further with nephrology if there is discussion of possible renal replacement. 10/23/2024 Patient is seen in follow-up today with neurology and nephrology following. Patient continues to have worsening kidney functions up to 7 creatinine today. Nephrology following and discussed with family and placed consult to vascular for temp cath placement to initiate hemodialysis. Patient continues with NG tube as he is NPO and had been aspirating. Dietary consulted and recommending enteral nutrition. Patient does not have a PICC line. 10/24/2024 Patient evaluated in follow up on the medical floor. He has removed his own NG tube. Remains NPO due to signigicant and continued aspiration. He has had right groin temporary hemodialysis catheter placed. Nephrology following. Patient is currently scheduled to undergo hemodialysis. Patient continues on LR at 75 mls/hr. Remains on IV daptomycin. 10/25/2024 Patient evaluated on the medical floor. He is more awake and alert as compared to yesterday although he is not responding to questions. He is mumbling. He appears to be resting comfortably. He underwent fist session of hemodialysis yesterday and patient tolerated. He is making adequate urine output. BUN of 39 today and creatinine of 4.43. Magnesium 1.7. Hemoglobin 9.4. 10/26/2024 Patient is seen in follow-up today and is asleep although arousable, mostly nonverbal. Multiple consultations following including nephrology and patient scheduled to undergo hemodialysis today although it appears dialysis catheter is clotted and vascular surgery reconsulted for replacement. To discuss further with family regarding overall treatment plan. Patient has not eaten and is high risk for aspiration although not awake enough to tolerate any form of diet. Mentation not significantly improved from admission 10/27/2024 Patient is seen in follow-up today with multiple consultations following and received an exchanged dialysis catheter and is undergoing dialysis at this time. Mentation is slightly improved. Continues with NG tube. Will reconsult speech for swallow eval. Patient afebrile and is continued on IV antibiotics with ID following. Review of systems: Unable to assess as patient is nonverbal Physical exam: GENERAL: The patient is more awake and alert today although continues with confusion and mostly nonverbal, continued jerking movements likely related to his Parkinson disease, ill-appearing, elderly appearing HEENT: Pupils are round and equally reacting to light. EOMI. No scleral icterus. No conjunctival pallor. Normocephalic, atraumatic. No pharyngeal erythema. No t hyromegaly. CARDIOVASCULAR: S1 and S2 muffled PULMONARY: Diminished breath sounds bilaterally otherwise chest is clear to auscultation, no wheezing , no crackles. ABDOMEN: Soft, nontender, nondistended, normoactive bowel sounds. No palpable organomegaly. MUSCULOSKELETAL: No joint swelling or deformity. EXTREMITIES: No cyanosis, clubbing, or pedal edema. NEUROLOGICAL: Continues to be somewhat confused, although is opening eyes and saying some things per nursing staff, he has resting tremor of the right and left hands, he follows some simple commands like squeezing the hands SKIN: No rashes. no petechiae. Assessment: Stage III sacral pressure ulcer with suspected infection, present on admission, blood cultures negative. Recent wound culture in September reveals pseudomonas aeruginosa and presumptive MRSA. Possible aspiration pneumonia Metabolic/toxic encephalopathy multifactorial due to uremia and aspiration pneumonia as well as underlying parkinsons/dementia. Hypernatremia, improving Hypokalemia Acute kidney injury, likely ATN with worsening kidney function, started on hemo dialysis per nephrology Parkinson disease, patient has resting tremor in his right hand and generalized stiffness, he is not taking his medication with nonadherence to medication, has a stimulator Congenital UPJ with nonfunctioning right kidney and chronic right hydronephrosis, no need for any intervention per urologist recently evaluated him during last admission Hypertension Hyperlipidemia GI prophylaxis DVT prophylaxis No code Plan: Continue with Zosyn and daptomycin with infectious disease following. Blood cultures remain negative Neurology evaluated the patient recommending MRI and power of insurance claims supervisor did turn off stimulator device although per nursing staff our MRI department reports they are unable to perform an MRI, MRI was canceled at this time. Patient is more awake and talking a little more today and following commands. Resume home medication, continue with NG tube for now. Continue n.p.o. NG tube will need to replaced as patient has pulled it out himself. Per nursing staff, NG tube has been pulled multiple times this admission. Mentation is improving and will reconsult speech for evaluation Patient had his first session of hemodialysis had some improvement in his mentation and is undergoing second hemodialysis treatment today. Previous temporary catheter was replaced and it was nonfunctioning Family have discussed the possibility of hospice informational meeting although would like to attempt dialysis to see if this improves his mentation. Patient has poor quality of life and hospice would be appropriate. The impression and plan of care has been dictated by Maye Johnson, Nurse Practitioner as directed. Dr. Frank MD I have performed a history and examination and MDM of this patient, discussed the same with the dictator, and agree with the dictator's assessment and plan as written ,documented as a scribe. Based on total visit time, I have performed more than 50% of the visit. Objective - Vital Signs Vital signs: Vital Signs Temp 98.2 F 10/28/24 02:00 Pulse 80 10/28/24 02:00 Resp 18 10/28/24 02:00 BP 147/80 10/28/24 02:00 Pulse Ox 96 10/28/24 02:00 FiO2 Intake & Output 10/27/24 10/27/24 10/28/24 06:59 18:59 06:59 Intake Total 1700 0 Output Total 400 800 350 Balance -400 900 -350 Intake: Intake, IV Titration 1200 Amount ACETAMINOPHEN IV (For NPO 100 ) 1,000 mg In Empty Bag 1 bag @ 400 mls/hr IVPB Q6HR PRN Rx#:[id number] Lactated Ringers 1,000 ml 900 @ 75 mls/hr IV .[id number] [facility] Rx#:[id number] Piperacillin-Tazobactam 3 200 .375 gm In Sodium Chloride 0.9% 100 ml @ 25 mls/hr IVPB Q12H [facility] Rx# :[id number] Oral 0 Hemodialysis 500 Output: Urine 400 300 350 Hemodialysis 500 Hemodialysis Net Amount 0 Other: Voiding Method Diaper Diaper Diaper Indwelling Catheter Indwelling Catheter Indwelling Catheter - Labs CBC & Chem 7: 10/25/24 07:59 10/27/24 09:01 Labs: Abnormal Lab Results - Last 24 Hours (Table) 10/27/24 10/27/24 10/27/24 Range/Units 09:01 14:48 14:48 Anion Gap 14.40 H (4.00-12.00) mmol/L BUN 38.9 H (9.0-27.0) mg/dL Creatinine 5.6 H (0.6-1.5) mg/dL Est GFR (CKD-EPI) 11 L (>=60) BUN/Creatinine Ratio 6.95 L (12.00-20.00) Ratio POC Glucose (mg/dL) (70-110) mg/dL Calcium 7.4 L (8.7-10.3) mg/dL C-Reactive Protein 8.60 H (0.00-0.80) mg/dL Procalcitonin 1.94 H (0.02-0.50) ng/mL Urine Protein (Negative) Urine Ketones (Negative) Urine Blood (Negative) Urine RBC (0-5) /hpf Urine WBC (0-5) /hpf Urine Bacteria (None) /hpf Urine Mucus (None) /hpf 10/27/24 10/27/24 10/27/24 Range/Units 18:00 18:41 22:15 Anion Gap (4.00-12.00) mmol/L BUN (9.0-27.0) mg/dL Creatinine (0.6-1.5) mg/dL Est GFR (CKD-EPI) (>=60) BUN/Creatinine Ratio (12.00-20.00) Ratio POC Glucose (mg/dL) 69 L 153 H (70-110) mg/dL Calcium (8.7-10.3) mg/dL C-Reactive Protein (0.00-0.80) mg/dL Procalcitonin (0.02-0.50) ng/mL Urine Protein 1+ H (Negative) Urine Ketones 1+ H (Negative) Urine Blood Large H (Negative) Urine RBC 112 H (0-5) /hpf Urine WBC 7 H (0-5) /hpf Urine Bacteria Rare H (None) /hpf Urine Mucus Rare H (None) /hpf
--- NOTE | 2024-10-28 10:09 | P.PN ---
Subjective Patient is seen in follow-up for acute kidney injury, hemodialysis dependent. Started on hemodialysis October 24, 2024. Has right femoral dialysis catheter. The catheter was exchanged October 26, 2024. No problems with dialysis yesterday. Poor historian. Vital signs are stable. General: Resting in bed. HEENT: NG tube noted. LUNGS: No audible rhonchi or wheezes. HEART: Rate and Rhythm are regular. ABDOMEN: No distention. EXTREMITITES: No edema. Objective - Vital Signs Vital signs: Vital Signs Temp 98.8 F 10/28/24 08:00 Pulse 80 10/28/24 08:00 Resp 15 10/28/24 08:00 BP 152/79 10/28/24 08:00 Pulse Ox 96 10/28/24 02:00 FiO2 Intake & Output 10/27/24 10/28/24 10/28/24 18:59 06:59 18:59 Intake Total 1700 0 Output Total 800 350 Balance 900 -350 Intake: Intake, IV Titration 1200 Amount ACETAMINOPHEN IV (For NPO 100 ) 1,000 mg In Empty Bag 1 bag @ 400 mls/hr IVPB Q6HR PRN Rx#:[id number] Lactated Ringers 1,000 ml 900 @ 75 mls/hr IV .[id number] [facility] Rx#:[id number] Piperacillin-Tazobactam 3 200 .375 gm In Sodium Chloride 0.9% 100 ml @ 25 mls/hr IVPB Q12H [facility] Rx# :[id number] Oral 0 Hemodialysis 500 Output: Urine 300 350 Hemodialysis 500 Hemodialysis Net Amount 0 Other: Voiding Method Diaper Diaper Indwelling Catheter Indwelling Catheter - Labs CBC & Chem 7: 10/25/24 07:59 10/27/24 09:01 Labs: Abnormal Lab Results - Last 24 Hours (Table) 10/27/24 10/27/24 10/27/24 Range/Units 09:01 14:48 14:48 Anion Gap 14.40 H (4.00-12.00) mmol/L BUN 38.9 H (9.0-27.0) mg/dL Creatinine 5.6 H (0.6-1.5) mg/dL Est GFR (CKD-EPI) 11 L (>=60) BUN/Creatinine Ratio 6.95 L (12.00-20.00) Ratio POC Glucose (mg/dL) (70-110) mg/dL Calcium 7.4 L (8.7-10.3) mg/dL C-Reactive Protein 8.60 H (0.00-0.80) mg/dL Procalcitonin 1.94 H (0.02-0.50) ng/mL Urine Protein (Negative) Urine Ketones (Negative) Urine Blood (Negative) Urine RBC (0-5) /hpf Urine WBC (0-5) /hpf Urine Bacteria (None) /hpf Urine Mucus (None) /hpf 10/27/24 10/27/24 10/27/24 Range/Units 18:00 18:41 22:15 Anion Gap (4.00-12.00) mmol/L BUN (9.0-27.0) mg/dL Creatinine (0.6-1.5) mg/dL Est GFR (CKD-EPI) (>=60) BUN/Creatinine Ratio (12.00-20.00) Ratio POC Glucose (mg/dL) 69 L 153 H (70-110) mg/dL Calcium (8.7-10.3) mg/dL C-Reactive Protein (0.00-0.80) mg/dL Procalcitonin (0.02-0.50) ng/mL Urine Protein 1+ H (Negative) Urine Ketones 1+ H (Negative) Urine Blood Large H (Negative) Urine RBC 112 H (0-5) /hpf Urine WBC 7 H (0-5) /hpf Urine Bacteria Rare H (None) /hpf Urine Mucus Rare H (None) /hpf Assessment and Plan Plan: Assessment: 1. Acute kidney injury secondary to ATN secondary to vancomycin toxicity. Vancomycin level elevated at 50.6 dated October 12, 2024. Right-sided hydronephrosis noted on kidney ultrasound. This appears to be chronic in nature with atrophy of the right kidney noted as well. Started on hemodialysis October 24, 2024. Baseline creatinine near 0.6-0.7 and peaked at 7.2 this admission. Nonoliguric. 2. Metabolic acidosis secondary to acute kidney injury. Improved. 3. 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 4. Sacral ulcer. 5. Hypertension with chronic kidney disease stage I. Stable. 6. Parkinson's disease. Plan: Hold hemodialysis today. Right femoral dialysis catheter was not functioning and was exchanged October 26, 2024. Avoid nephrotoxins. Continue to monitor renal function and urine output. Monitor for renal recovery. Maintain IV fluids.
[2024-10-28 12:21] LABS: Glucose,Whole Blood 72 mg/dL (70-110)
--- NOTE | 2024-10-28 14:46 | P.PN ---
Subjective Progress Note Date: 10/28/24 I am following-up with patient and he seems more awake and responsive today. Objective - Vital Signs Vital signs: Vital Signs Temp 98.4 F 10/28/24 13:55 Pulse 78 10/28/24 13:55 Resp 17 10/28/24 13:55 BP 143/75 10/28/24 13:55 Pulse Ox 95 10/28/24 13:55 FiO2 Intake & Output 10/27/24 10/28/24 10/28/24 18:59 06:59 18:59 Intake Total 1700 0 Output Total 800 350 Balance 900 -350 Intake: Intake, IV Titration 1200 Amount ACETAMINOPHEN IV (For NPO 100 ) 1,000 mg In Empty Bag 1 bag @ 400 mls/hr IVPB Q6HR PRN Rx#:[id number] Lactated Ringers 1,000 ml 900 @ 75 mls/hr IV .[id number] [facility] Rx#:[id number] Piperacillin-Tazobactam 3 200 .375 gm In Sodium Chloride 0.9% 100 ml @ 25 mls/hr IVPB Q12H [facility] Rx# :[id number] Oral 0 Hemodialysis 500 Output: Urine 300 350 Hemodialysis 500 Hemodialysis Net Amount 0 Other: Voiding Method Diaper Diaper Indwelling Catheter Indwelling Catheter Indwelling Catheter - Exam General: Lying in bed and does not appear in acute distress. Is currently getting dialysis. HENT: Has NG tube. Neuro: Limited. Is drowsy but is more awakeable today compared to the past few days. Is foll owing simple commands (closing and opening eyes, wiggling eyes). He correctly stated his name. He attempts to smile. - Labs CBC & Chem 7: 10/25/24 07:59 10/27/24 09:01 Labs: Abnormal Lab Results - Last 24 Hours (Table) 10/27/24 10/27/24 10/27/24 Range/Units 09:01 14:48 14:48 Anion Gap 14.40 H (4.00-12.00) mmol/L BUN 38.9 H (9.0-27.0) mg/dL Creatinine 5.6 H (0.6-1.5) mg/dL Est GFR (CKD-EPI) 11 L (>=60) BUN/Creatinine Ratio 6.95 L (12.00-20.00) Ratio POC Glucose (mg/dL) (70-110) mg/dL Calcium 7.4 L (8.7-10.3) mg/dL C-Reactive Protein 8.60 H (0.00-0.80) mg/dL Procalcitonin 1.94 H (0.02-0.50) ng/mL Urine Protein (Negative) Urine Ketones (Negative) Urine Blood (Negative) Urine RBC (0-5) /hpf Urine WBC (0-5) /hpf Urine Bacteria (None) /hpf Urine Mucus (None) /hpf 10/27/24 10/27/24 10/27/24 Range/Units 18:00 18:41 22:15 Anion Gap (4.00-12.00) mmol/L BUN (9.0-27.0) mg/dL Creatinine (0.6-1.5) mg/dL Est GFR (CKD-EPI) (>=60) BUN/Creatinine Ratio (12.00-20.00) Ratio POC Glucose (mg/dL) 69 L 153 H (70-110) mg/dL Calcium (8.7-10.3) mg/dL C-Reactive Protein (0.00-0.80) mg/dL Procalcitonin (0.02-0.50) ng/mL Urine Protein 1+ H (Negative) Urine Ketones 1+ H (Negative) Urine Blood Large H (Negative) Urine RBC 112 H (0-5) /hpf Urine WBC 7 H (0-5) /hpf Urine Bacteria Rare H (None) /hpf Urine Mucus Rare H (None) /hpf Assessment and Plan Assessment: * Altered mental status, likely due to toxic metabolic encephalopathy--mentation improving today compared to past few days. * Rule out sepsis/pneumonia * Stage III pressure ulcer of sacral region * Failure to thrive * Hypernatremia, resolved * Acute kidney injury, likely due to ATN, (vancomycin toxicity versus hypotension per nephrology) renal functions, worsening, with creatinine 7.2. Patient started on hemodialysis today. * Advanced Parkinson's, history of DBS placement * Dementia, severe degree * Hydronephrosis with cortical thinning Plan: * EEG was performed, which was abnormal due to background slowing of moderate to severe degree. This is suggestive of generalized cerebral dysfunction as can be seen with toxic metabolic encephalopathy or related to diffuse structural brain abnormality. Clinical correlation is recommended. Intermittent myoge ramon artifacts were seen in the right or left or bitemporal region during the study from underlying tremor. No epileptiform activity was seen. * Repeat EEG: Is abnormal. The background slowing is suggestive of moderate to severe encephalopathy. There is no focal slowing, epileptiform discharge or s eizure. There is myogenic artifact during the begining of study and last few minutes of study because of Deep Brain Stimulation. * Treatment of various metabolic/medical conditions (as mentioned above) as per IM and other specialties on board. * Patient currently on Zosyn and daptomycin. ID on board. * Patient currently on Sinemet 25/100, 3 times daily. * Patient's renal functions are worsening. Nephrology following. Patient started on hemodialysis. * Prognosis very guarded. Patient is no CODE STATUS. The plan is discussed with the primary team Nurse practitioner. Will follow-up with patient sporadically. Time with Patient: Less than 30
[2024-10-28 14:51] LABS: Glucose,Whole Blood 78 mg/dL (70-110)
[2024-10-28 15:12] LABS: African American GFR (CKD) 17 (>60 ml/min/1.73 sqM); Anion Gap 8 mmol/L; Blood Urea Nitrogen 34 mg/dL (9-20); Calcium 7.6 mg/dL (8.4-10.2); Carbon Dioxide 26 mmol/L (22-30); Chloride 102 mmol/L (98-107); Glucose 68 mg/dL (74-99); Magnesium 1.6 mg/dL (1.6-2.3); Non-African American GFR(CKD) 14 (>60 ml/min/1.73 sqM); Potassium 3.9 mmol/L (3.5-5.1); Sodium 136 mmol/L (137-145)
--- NOTE | 2024-10-28 15:46 | P.PN ---
Subjective Progress Note Date: 10/28/24 Principal diagnosis: Reason for follow-up is pneumonia infected sacral pressure ulcer Patient is a 63-year-old male with a past medical history significant for hypertension Parkinson's recent admission to the hospital for aspiration pneumonia and also have infected sacral pressure ulcer culture positive for MRSA and Pseudomonas treated with the cefepime vancomycin initially that was transitioned to daptomycin in the outpatient setting has been brought back to the hospital concerning for mental status changes unresponsiveness and there was a question of pneumonia. On today's evaluation that is 10/28/2024,the patient did have resolution of his fever is afebrile today patient is currently breathing comfortably on room air slightly more awake but not very good historian no vomiting or diarrhea is reported he did have developed significant rash. The patient did have creatinine 4.09 culture has been negative Objective - Vital Signs Vital signs: Vital Signs Temp 98.4 F 10/28/24 13:55 Pulse 78 10/28/24 13:55 Resp 17 10/28/24 13:55 BP 143/75 10/28/24 13:55 Pulse Ox 95 10/28/24 13:55 FiO2 Intake & Output 10/27/24 10/28/24 10/28/24 18:59 06:59 18:59 Intake Total 1700 0 Output Total 800 350 Balance 900 -350 Intake: Intake, IV Titration 1200 Amount ACETAMINOPHEN IV (For NPO 100 ) 1,000 mg In Empty Bag 1 bag @ 400 mls/hr IVPB Q6HR PRN Rx#:[id number] Lactated Ringers 1,000 ml 900 @ 75 mls/hr IV .[id number] [facility] Rx#:[id number] Piperacillin-Tazobactam 3 200 .375 gm In Sodium Chloride 0.9% 100 ml @ 25 mls/hr IVPB Q12H [facility] Rx# :[id number] Oral 0 Hemodialysis 500 Output: Urine 300 350 Hemodialysis 500 Hemodialysis Net Amount 0 Other: Voiding Method Diaper Diaper Indwelling Catheter Indwelling Catheter Indwelling Catheter # Bowel Movements 2 - Exam GENERAL DESCRIPTION: An elderly male lying in bed in no distress RESPIRATORY SYSTEM: Unlabored breathing , decreased breath sounds at bases HEART: S1 S2 regular rate and rhythm , ABDOMEN: Soft , no tenderness , Skin generalized maculopapular rash - Labs CBC & Chem 7: 10/25/24 07:59 10/28/24 14:14 Labs: Abnormal Lab Results - Last 24 Hours (Table) 10/27/24 10/27/24 10/27/24 Range/Units 14:48 14:48 18:00 Sodium (137-145) mmol/L BUN (9-20) mg/dL Creatinine (0.66-1.25) mg/dL Glucose (74-99) mg/dL POC Glucose (mg/dL) 69 L (70-110) mg/dL Calcium (8.4-10.2) mg/dL C-Reactive Protein 8.60 H (0.00-0.80) mg/dL Procalcitonin 1.94 H (0.02-0.50) ng/mL Urine Protein (Negative) Urine Ketones (Negative) Urine Blood (Negative) Urine RBC (0-5) /hpf Urine WBC (0-5) /hpf Urine Bacteria (None) /hpf Urine Mucus (None) /hpf 10/27/24 10/27/24 10/28/24 Range/Units 18:41 22:15 14:14 Sodium 136 L (137-145) mmol/L BUN 34 H (9-20) mg/dL Creatinine 4.09 H (0.66-1.25) mg/dL Glucose 68 L (74-99) mg/dL POC Glucose (mg/dL) 153 H (70-110) mg/dL Calcium 7.6 L (8.4-10.2) mg/dL C-Reactive Protein (0.00-0.80) mg/dL Procalcitonin (0.02-0.50) ng/mL Urine Protein 1+ H (Negative) Urine Ketones 1+ H (Negative) Urine Blood Large H (Negative) Urine RBC 112 H (0-5) /hpf Urine WBC 7 H (0-5) /hpf Urine Bacteria Rare H (None) /hpf Urine Mucus Rare H (None) /hpf Assessment and Plan (1) Pneumonia Current Visit: Yes Status: Acute Code(s): J18.9 - PNEUMONIA, UNSPECIFIED ORGANISM SNOMED Code(s): 697171531 (2) Stage III pressure ulcer of sacral region Current Visit: No Status: Acute Code(s): L89.153 - PRESSURE ULCER OF SACRAL REGION, STAGE 3 SNOMED Code(s): 15017231714219 (3) Rash Current Visit: Yes Status: Acute Code(s): R21 - RASH AND OTHER NONSPECIFIC SKIN ERUPTION SNOMED Code(s): 177649904 Plan: 1patient presenting to the hospital with mental status changes decreased level of responsiveness and confusion which is likely multifactorial patient did have evidence of worsening kidney function and uremia could be contributing to it however patient has been on cefepime which can cause mental status changes and confusion. 2possible pneumonia on the chest x-ray keeping in mind the halfway re sident with confusion underlying aspiration and gram-negative pneumonia not entirely excluded has received adequate antibiotic for underlying pneumonia 3patient did have resolution of his fever however has developed significant rash possible related to Zosyn which will be discontinued currently on daptomycin to continue follow-up with local wound care as ordered Dictation was produced using [employer] dictation software. please excuse any grammatical, word or spelling errors. Time with Patient: Less than 30
[2024-10-28 18:03] LABS: Glucose,Whole Blood 71 mg/dL (70-110)
[2024-10-29 00:15] LABS: Glucose,Whole Blood 76 mg/dL (70-110)
--- NOTE | 2024-10-29 02:09 | P.PN ---
Subjective Progress Note Date: 10/28/24 This is a pleasant 63 years old male on 10/01 who was recently discharged from this facility for pressure ulcer stage II on IV vancomycin and cefepime. Currently he presents from sn[facility] for being diaphoretic for 2 days with pressure ulcers on the buttock. Patient cannot provide information , He does not answer questions. He keeps his eye closed and resists opening them, he has a resting tremor, pill rolling tremor in his right hand, he has stiff both upper and lower extremities. Pupils are equal and reactive to light. He has stage II pressure ulcer with some pinkish discoloration, no purulent discharge He has right arm PICC line, he is on IV daptomycin from sn[facility] started on 10/16 till 10/27 Patient afebrile blood pressure stable WBCs 10.8, hemoglobin 11.5, sodium elevated 151, creatinine 3.9, previously was 1.7 and it was 2, I reviewed the chest x-ray myself .7. Chest x-ray: Airspace opacity projecting the spine correlate for pneumonia per radiologist, I reviewed chest x-ray myself, no significant consolidation, including symmetrical no pleural effusion. 10/19 Patient still confused, does not answer questions. He has pill rolling tremor, yesterday was in his right hand and today in his left hand, he has generalized stiffness most likely related to his Parkinson disease, patient has been confused for the last 3 to 4 days and he was not taking his Parkinson medication , the suspicion of seizure is low however he received Ativan yesterday. CT of the brain was negative neurology service consulted already Also has been treated for sepsis suspected for pressure ulcers also there is suspicion of aspiration pneumonia and currently has been covered with Zosyn. Looks like emergency room team consulted hospice, yesterday after rounding bedside nurse called me stating patient family requesting to talk to hospice team. We are going to talk to family and if they agreeable with going to place NG tube to start his Parkinson medication and other oral medication His hypernatremia and creatinine are trending up. NG tube placed can help also with water flushes He is continued on D5 W at 75 mL/h and dose increased today to 100 mL/h. 10/20 Patient still nonverbal Head of bed at 45 degree NG tube in place Patient is started on water flushes. Also resumed some of his oral medications through NG tube like metoprolol 25 mg as patient blood pressure and heart rate were elevated. No diarrhea. Nutrition consult called for tube feeding Family met with hospice team yesterday per their request, they opted to continue with medical management. No hospice 10/21/2024 Patient is seen in follow-up and mentation is back to baseline. Patient is mostly nonverbal although will say some things per nursing staff. Patient continues with NG tube at this time. Patient is high risk for aspiration and maintained on aspiration precautions. Patient continues on IV antibiotics per ID recommendation. Kidney functions were elevated although significantly improved with concerns of possible error in labs. Patient will need updated PT/OT therapy notes with plans on returning to [facility] once stabilized. 10/22/2024 Patient is seen in follow-up today with multiple consultations following. Patient is unable to have the MRI due to brain stimulator even if turned off per MRI department here. MRI was canceled. Neurology following and will discuss further with family as patient's family is requesting to know the amount of brain functionality patient has. Patient continues to be confused although is more alert today. Creatinine continues to worsen above 6 today and will discuss further with nephrology if there is discussion of possible renal replacement. 10/23/2024 Patient is seen in follow-up today with neurology and nephrology following. Patient continues to have worsening kidney functions up to 7 creatinine today. Nephrology following and discussed with family and placed consult to vascular for temp cath placement to initiate hemodialysis. Patient continues with NG tube as he is NPO and had been aspirating. Dietary consulted and recommending enteral nutrition. Patient does not have a PICC line. 10/24/2024 Patient evaluated in follow up on the medical floor. He has removed his own NG tube. Remains NPO due to signigicant and continued aspiration. He has had right groin temporary hemodialysis catheter placed. Nephrology following. Patient is currently scheduled to undergo hemodialysis. Patient continues on LR at 75 mls/hr. Remains on IV daptomycin. 10/25/2024 Patient evaluated on the medical floor. He is more awake and alert as compared to yesterday although he is not responding to questions. He is mumbling. He appears to be resting comfortably. He underwent fist session of hemodialysis yesterday and patient tolerated. He is making adequate urine output. BUN of 39 today and creatinine of 4.43. Magnesium 1.7. Hemoglobin 9.4. 10/26/2024 Patient is seen in follow-up today and is asleep although arousable, mostly nonverbal. Multiple consultations following including nephrology and patient scheduled to undergo hemodialysis today although it appears dialysis catheter is clotted and vascular surgery reconsulted for replacement. To discuss further with family regarding overall treatment plan. Patient has not eaten and is high risk for aspiration although not awake enough to tolerate any form of diet. Mentation not significantly improved from admission 10/27/2024 Patient is seen in follow-up today with multiple consultations following and received an exchanged dialysis catheter and is undergoing dialysis at this time. Mentation is slightly improved. Continues with NG tube. Will reconsult speech for swallow eval. Patient afebrile and is continued on IV antibiotics with ID following. 10/28/2024 Patient is seen in follow-up today much more awake and alert following commands and talking and answering questions appropriately. Multiple consultations including neurology, nephrology, infectious disease following. Patient maintained on hemodialysis showing improvements in kidney functions and creatinine is 4.9 today. Patient continues to make urine and will continue with [place] catheter for now. Patient will be reevaluated by speech today. Continue with current medication regimen including antibiotics. Patient family refusing hospice at this time and will need to discuss further with nephrology if patient will be continued on hemodialysis while outpatient. Plan will be for return to [facility] on discharge. Review of systems: Unable to assess as patient is mostly nonverbal Physical exam: GENERAL: The patient is more awake and alert today although continues with confusion and mostly nonverbal, continued jerking movements likely related to his Parkinson disease, ill-appearing, elderly appearing HEENT: Pupils are round and equally reacting to light. EOMI. No scleral icterus. No conjunctival pallor. Normocephalic, atraumatic. No pharyngeal erythema. No thyromegaly. CARDIOVASCULAR: S1 and S2 muffled PULMONARY: Diminished breath sounds bilaterally otherwise chest is clear to auscultation, no wheezing , no crackles. ABDOMEN: Soft, nontender, nondistended, normoactive bowel sounds. No palpable organomegaly. MUSCULOSKELETAL: No joint swelling or deformity. EXTREMITIES: No cyanosis, clubbing, or pedal edema. NEUROLOGICAL: Continues to be somewhat confused, although is opening eyes and saying some things per nursing staff, he has resting tremor of the right and left hands, he follows some simple commands like squeezing the hands SKIN: No rashes. no petechiae. Assessment: Stage III sacral pressure ulcer with suspected infection, present on admission, blood cultures negative. Recent wound culture in September reveals pseudomonas aeruginosa and presumptive MRSA. Possible aspiration pneumonia Metabolic/toxic encephalopathy multifactorial due to uremia and aspiration pneumonia as well as underlying parkinsons/dementia. Hypernatremia, improving Hypokalemia, improved Acute kidney injury, likely ATN with worsening kidney function, started on hemodialysis per nephrology Parkinson disease, patient has resting tremor in his right hand and generalized stiffness, he is not taking his medication with nonadherence to medication, has a stimulator Congenital UPJ with nonfunctioning right kidney and chronic right hydronephrosis, no need for any intervention per urologist recently evaluated him during last admission Hypertension Hyperlipidemia GI prophylaxis DVT prophylaxis No code Plan: Continue with Zosyn and daptomycin with infectious disease following. Blood cultures remain negative Neurology evaluated the patient recommending MRI and power of insurance defense attorney did turn off stimulator device although per nursing staff our MRI department reports they are unable to perform an MRI, MRI was canceled at this time. Patient is more awake and talking a little more today and following commands. Resume home medication, continue with NG tube for now. Continue n.p.o. NG tube will need to replaced as patient has pulled it out himself. Per nursing staff, NG tube has been pulled multiple times this admission. Mentation is improving and speech reconsulted today for evaluation Patient had his first session of hemodialysis had some improvement in his mentation and underwent second hemodialysis treatment yesterday. Per nephrology no dialysis today. Previous temporary catheter was replaced and it was nonfunctioning. Will need to discuss with nephrology if requiring outpatient dialysis as patient and family do not want hospice. Plan will be for return to [facility] on discharge. Family have discussed the possibility of hospice previously although refusing and would like to continue with dialysis and current treatment plan. Patient has poor quality of life and hospice would be appropriate. Tentative plan will be for return to [facility] and will need to discuss further with nephrology if patient will be requiring outpatient hemodialysis. Social work following and dialysis would need to be arranged and also patient continues with temporary dialysis catheter at this time. The impression and plan of care has been dictated by Maye Johnson, Nurse Practitioner as directed. Dr. Frank MD I have performed a history and examination and MDM of this patient, discussed the same with the dictator, and agree with the dictator's assessment and plan as written ,documented as a scribe. Based on total visit time, I have performed more than 50% of the visit. Objective - Vital Signs Vital signs: Vital Signs Temp 98 F 10/29/24 00:26 Pulse 76 10/29/24 00:26 Resp 16 10/29/24 00:26 BP 139/87 10/29/24 00:26 Pulse Ox 95 10/29/24 00:26 FiO2 Intake & Output 10/28/24 10/28/24 10/29/24 06:59 18:59 06:59 Intake Total 0 0 20 Output Total 350 625 Balance -350 -625 20 Intake: Oral 0 0 20 Output: Urine 350 625 Other: Voiding Method Diaper Indwelling Catheter Indwelling Catheter Indwelling Catheter # Bowel Movements 2 - Labs CBC & Chem 7: 10/25/24 07:59 10/28/24 14:14 Labs: Abnormal Lab Results - Last 24 Hours (Table) 10/28/24 Range/Units 14:14 Sodium 136 L (137-145) mmol/L BUN 34 H (9-20) mg/dL Creatinine 4.09 H (0.66-1.25) mg/dL Glucose 68 L (74-99) mg/dL Calcium 7.6 L (8.4-10.2) mg/dL Microbiology - Last 24 Hours (Table) 10/27/24 14:52 Blood Culture - Preliminary Blood
[2024-10-29 06:12] LABS: Glucose,Whole Blood 87 mg/dL (70-110)
--- NOTE | 2024-10-29 07:37 | XR ---
EXAMINATION TYPE: XR abdomen 1V DATE OF EXAM: 10/29/2024 7:10 AM CLINICAL HISTORY: NGT placement TECHNIQUE: Single supine KUB image of the chest and abdomen is obtained. COMPARISON: CT abdomen and pelvis August 31, 2024. FINDINGS: Exam only includes top two thirds of the abdomen. There is partial visualization of right-s ided PICC line which terminates at the brachiocephalic confluence likely proximal SVC. Nasogastric tu be is not seen. Gas is seen in nondistended small and large bowel loops. Multilevel spurring the spine is present. A neck Stimulator device is partially imaged. There is left basilar opacity which could reflect acute i nfiltrate and/or atelectasis. IMPRESSION: As above. [facility], , 10/29/2024 7:35 AM
[2024-10-29 10:54] LABS: BUN/Creat Ratio 6.19 Ratio (12.00-20.00); Blood Urea Nitrogen 32.2 mg/dL (9.0-27.0); Calcium 7.5 mg/dL (8.7-10.3); Carbon Dioxide 24.2 mmol/L (21.6-31.8); Chloride 106 mmol/L (96-109); Glucose 81 mg/dL (70-110); Magnesium 1.5 mg/dL (1.5-2.4); Phosphorus 3.5 mg/dL (2.4-5.1); Potassium 4.1 mmol/L (3.5-5.5); Sodium 141 mmol/L (135-145)
--- NOTE | 2024-10-29 11:23 | P.PN ---
Subjective Patient is seen in follow-up for acute kidney injury, hemodialysis dependent. Started on hemodialysis October 24, 2024. Has right femoral dialysis catheter. The catheter was exchanged October 26, 2024. Poor historian. Vital signs are stable. General: Resting in bed. HEENT: No JVD. LUNGS: No audible rhonchi or wheezes. HEART: Rate and Rhythm are regular. ABDOMEN: No distention. EXTREMITITES: No edema. Objective - Vital Signs Vital signs: Vital Signs Temp 98.4 F 10/29/24 08:43 Pulse 86 10/29/24 08:43 Resp 17 10/29/24 08:43 BP 147/78 10/29/24 08:43 Pulse Ox 95 10/29/24 08:43 FiO2 Intake & Output 10/28/24 10/29/24 10/29/24 18:59 06:59 18:59 Intake Total 0 460 Output Total 625 400 Balance -625 60 Intake: Oral 0 20 Other 440 Output: Urine 625 400 Other: Voiding Method Indwelling Catheter Indwelling Catheter # Bowel Movements 2 1 - Labs CBC & Chem 7: 10/25/24 07:59 10/29/24 06:52 Labs: Abnormal Lab Results - Last 24 Hours (Table) 10/28/24 10/29/24 Range/Units 14:14 06:52 Sodium 136 L (137-145) mmol/L BUN 34 H 32.2 H (9-20) mg/dL Creatinine 4.09 H 5.2 H (0.66-1.25) mg/dL Est GFR (CKD-EPI) 12 L (>=60) BUN/Creatinine Ratio 6.19 L (12.00-20.00) Ratio Glucose 68 L (74-99) mg/dL Calcium 7.6 L 7.5 L (8.4-10.2) mg/dL Microbiology - Last 24 Hours (Table) 10/27/24 14:52 Blood Culture - Preliminary Blood Assessment and Plan Plan: Assessment: 1. Acute kidney injury secondary to ATN secondary to vancomycin toxicity. Vancomycin level elevated at 50.6 dated October 12, 2024. Right-sided hydronephrosis noted on kidney ultrasound. This appears to be chronic in nature with atrophy of the right kidney noted as well. Started on hemodialysis October 24, 2024. Baseline creatinine near 0.6-0.7 and peaked at 7.2 this admission. Nonoliguric. Creatinine 5.2 today. 2. Metabolic acidosis secondary to acute kidney injury. Improved. 3. 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 4. Sacral ulcer. 5. Hypertension with chronic kidney disease stage I. Stable. 6. Parkinson's disease. Plan: Hemodialysis today. Right femoral dialysis catheter was not functioning and was exchanged October 26, 2024. Will notify vascular surgery for permacath placement. Avoid nephrotoxins. Continue to monitor renal function and urine output. Monitor for renal recovery outpatient. Maintain IV fluids. Outpatient dialysis to be set up by case management.
[2024-10-29 12:28] LABS: Glucose,Whole Blood 72 mg/dL (70-110)
[2024-10-29 17:21] LABS: Glucose,Whole Blood 85 mg/dL (70-110)
[2024-10-30 00:23] LABS: Glucose,Whole Blood 81 mg/dL (70-110)
--- NOTE | 2024-10-30 04:37 | P.PN ---
Subjective Progress Note Date: 10/29/24 This is a pleasant 63 years old male on 10/01 who was recently discharged from this facility for pressure ulcer stage II on IV vancomycin and cefepime. [facility] being [facility] for 2 days with pressure ulcers on the buttock. Patient cannot provide information , He does not answer questions. He keeps his eye closed and resists opening them, he has a resting tremor, pill rolling tremor in his right hand, he has stiff both upper and lower extremities. Pupils are equal and reactive to light. He has stage II pressure ulcer with some pinkish discoloration, no purulent discharge He has right arm PICC line, he is on [facility]apt[facility] started on 10/16 till 10/27 Patient afebrile blood pressure stable WBCs 10.8, hemoglobin 11.5, sodium elevated 151, creatinine 3.9, previously was 1.7 and it was 2, I reviewed the chest x-ray myself .7. Chest x-ray: Airspace opacity projecting the spine correlate for pneumonia per radiologist, I reviewed chest x-ray myself, no significant consolidation, including symmetrical no pleural effusion. 10/19 Patient still confused, does not answer questions. He has pill rolling tremor, yesterday was in his right hand and today in his left hand, he has generalized stiffness most likely related to his Parkinson disease, patient has been confused for the last 3 to 4 days and he was not taking his Parkinson medication , the suspicion of seizure is low however he received Ativan yesterday. CT of the brain was negative neurology service consulted already Also has been treated for sepsis suspected for pressure ulcers also there is suspicion of aspiration pneumonia and currently has been covered with Zosyn. Looks like emergency room team consulted hospice, yesterday after rounding bedside nurse called me stating patient family requesting to talk to hospice team. We are going to talk to family and if they agreeable with going to place NG tube to start his Parkinson medication and other oral medication His hypernatremia and creatinine are trending up. NG tube placed can help also with water flushes He is continued on D5 W at 75 mL/h and dose increased today to 100 mL/h. 10/20 Patient still nonverbal Head of bed at 45 degree NG tube in place Patient is started on water flushes. Also resumed some of his oral medications through NG tube like metoprolol 25 mg as patient blood pressure and heart rate were elevated. No diarrhea. Nutrition consult called for tube feeding Family met with hospice team yesterday per their request, they opted to continue with medical management. No hospice 10/21/2024 Patient is seen in follow-up and mentation is back to baseline. Patient is mostly nonverbal although will say some things per nursing staff. Patient continues with NG tube at this time. Patient is high risk for aspiration and maintained on aspiration precautions. Patient continues on IV antibiotics per ID recommendation. Kidney functions were elevated although significantly improved with concerns of possible error in labs. Patient will need updated PT/OT therapy notes with plans on returning to [facility] once stabilized. 10/22/2024 Patient is seen in follow-up today with multiple consultations following. Patient is unable to have the MRI due to brain stimulator even if turned off per MRI department here. MRI was canceled. Neurology following and will discuss further with family as patient's family is requesting to know the amount of brain functionality patient has. Patient continues to be confused although is more alert today. Creatinine continues to worsen above 6 today and will discuss further with nephrology if there is discussion of possible renal replacement. 10/23/2024 Patient is seen in follow-up today with neurology and nephrology following. Patient continues to have worsening kidney functions up to 7 creatinine today. Nephrology following and discussed with family and placed consult to vascular for temp cath placement to initiate hemodialysis. Patient continues with NG tube as he is NPO and had been aspirating. Dietary consulted and recommending enteral nutrition. Patient does not have a PICC line. 10/24/2024 Patient evaluated in follow up on the medical floor. He has removed his own NG tube. Remains NPO due to signigicant and continued aspiration. He has had right groin temporary hemodialysis catheter placed. Nephrology following. Patient is currently scheduled to undergo hemodialysis. Patient continues on LR at 75 mls/hr. Remains on IV daptomycin. 10/25/2024 Patient evaluated on the medical floor. He is more awake and alert as compared to yesterday although he is not responding to questions. He is mumbling. He appears to be resting comfortably. He underwent fist session of hemodialysis yesterday and patient tolerated. He is making adequate urine output. BUN of 39 today and creatinine of 4.43. Magnesium 1.7. Hemoglobin 9.4. 10/26/2024 Patient is seen in follow-up today and is asleep although arousable, mostly nonverbal. Multiple consultations following including nephrology and patient scheduled to undergo hemodialysis today although it appears dialysis catheter is clotted and vascular surgery reconsulted for replacement. To discuss further with family regarding overall treatment plan. Patient has not eaten and is high risk for aspiration although not awake enough to tolerate any form of diet. Mentation not significantly improved from admission 10/27/2024 Patient is seen in follow-up today with multiple consultations following and received an exchanged dialysis catheter and is undergoing dialysis at this time. Mentation is slightly improved. Continues with NG tube. Will reconsult speech for swallow eval. Patient afebrile and is continued on IV antibiotics with ID following. 10/28/2024 Patient is seen in follow-up today much more awake and alert following commands and talking and answering questions appropriately. Multiple consultations including neurology, nephrology, infectious disease following. Patient maintained on hemodialysis showing improvements in kidney functions and creatinine is 4.9 today. Patient continues to make urine and will continue with [place] catheter for now. Patient will be reevaluated by speech today. Continue with current medication regimen including antibiotics. Patient family refusing hospice at this time and will need to discuss further with nephrology if patient will be continued on hemodialysis while outpatient. Plan will be for return to [facility] on discharge. 10/29/2024 Patient is seen in follow-up today with no acute overnight issues noted. Patient will be scheduled to receive hemodialysis today as kidney functions have slightly worsened and up above 5 and creatinine and will prepare for outpatient hemodialysis. Vascular surgery reconsulted for permacath placement and discussed with social work regarding discharge planning to [facility]. Patient will need to be arranged for outpatient hemodialysis. Patient tolerating pured diet and recommend to continue with aspiration precautions Review of systems: Unable to assess as patient is mostly nonverbal, is answering questions appropriately and following commands. Physical exam: GENERAL: The patient is more awake and alert today although continues with confusion and mostly nonverbal, continued jerking movements likely related to his Parkinson disease, ill-appearing, elderly appearing HEENT: Pupils are round and equally reacting to light. EOMI. No scleral icterus. No conjunctival pallor. Normocephalic, atraumatic. No pharyngeal erythema. No thyromegaly. CARDIOVASCULAR: S1 and S2 muffled PULMONARY: Diminished breath sounds bilaterally otherwise chest is clear to auscultation, no wheezing , no crackles. ABDOMEN: Soft, nontender, nondistended, normoactive bowel sounds. No palpable organomegaly. MUSCULOSKELETAL: No joint swelling or deformity. EXTREMITIES: No cyanosis, clubbing, or pedal edema. NEUROLOGICAL: Continues to have occasional confusion, although more at baseline and answering questions appropriately and following commands. SKIN: No rashes. no petechiae. Assessment: Stage III sacral pressure ulcer with suspected infection, present on admission, blood cultures negative. Recent wound culture in September reveals pseudomonas aeruginosa and presumptive MRSA. aspiration pneumonia, present on admission Metabolic/toxic encephalopathy multifactorial due to uremia and aspiration p neumonia as well as underlying parkinsons/dementia. Hypernatremia, improving Hypokalemia, improved Acute kidney injury, likely ATN with worsening kidney function, started on hemodialysis per nephrology, patient will require outpatient hemodialysis which is being arranged Parkinson disease, patient has resting tremor in his right hand and generalized stiffness, he is not taking his medication with nonadherence to medication, has a stimulator Congenital UPJ with nonfunctioning right kidney and chronic right hydronephrosis, no need for any intervention per urologist recently evaluated him during last admission Hypertension Hyperlipidemia GI prophylaxis DVT prophylaxis No code Plan: Continue with Zosyn and daptomycin with infectious disease following. Blood cultures remain negative, will discuss with infectious disease regarding discharge planning if patient will require antibiotics on discharge Neurology evaluated the patient recommending MRI initially although patient has a stimulator in the brain that is not compatible with MRI. Mentation is improved and at baseline Resume home medication, patient is on pured diet and recommend aspiration precautions and will continue Patient had hemodialysis and had some improvement in his mentation and will be requiring outpatient dialysis. Social work following making arrangements including arranging for chair time. Patient will be returning to [facility] on discharge Family have discussed the possibility of hospice previously although refusing and would like to continue with dialysis and current treatment plan. Patient has poor quality of life and hospice would be appropriate. The impression and plan of care has been dictated by Maye Johnson, Nurse Practitioner as directed. Dr. Frank MD I have performed a history and examination and MDM of this patient, discussed the same with the dictator, and agree with the dictator's assessment and plan as written ,documented as a scribe. Based on total visit time, I have performed more than 50% of the visit. Objective - Vital Signs Vital signs: Vital Signs Temp 98 F 10/29/24 00:26 Pulse 76 10/29/24 00:26 Resp 16 10/29/24 00:26 BP 139/87 10/29/24 00:26 Pulse Ox 95 10/29/24 00:26 FiO2 Intake & Output 10/28/24 10/29/24 10/29/24 18:59 06:59 18:59 Intake Total 0 460 Output Total 625 400 Balance -625 60 Intake: Oral 0 20 Other 440 Output: Urine 625 400 Other: Voiding Method Indwelling Catheter Indwelling Catheter # Bowel Movements 2 1 - Labs CBC & Chem 7: 10/25/24 07:59 10/29/24 06:52 Labs: Abnormal Lab Results - Last 24 Hours (Table) 10/28/24 Range/Units 14:14 Sodium 136 L (137-145) mmol/L BUN 34 H (9-20) mg/dL Creatinine 4.09 H (0.66-1.25) mg/dL Glucose 68 L (74-99) mg/dL Calcium 7.6 L (8.4-10.2) mg/dL Microbiology - Last 24 Hours (Table) 10/27/24 14:52 Blood Culture - Preliminary Blood
[2024-10-30 06:12] LABS: Glucose,Whole Blood 78 mg/dL (70-110)
[2024-10-30 08:46] LABS: ALT <5 U/L (10-49); AST 14 U/L (14-35); Albumin 2.3 g/dL (3.8-4.9); Albumin/Globulin Ratio 1.21 Ratio (1.60-3.17); Alkaline Phosphatase 63 U/L (41-126); BUN/Creat Ratio 6.13 Ratio (12.00-20.00); Blood Urea Nitrogen 33.7 mg/dL (9.0-27.0); Calcium 7.5 mg/dL (8.7-10.3); Carbon Dioxide 24.7 mmol/L (21.6-31.8); Chloride 108 mmol/L (96-109); Globulin 1.9 g/dL (1.6-3.3); Glucose 72 mg/dL (70-110); Magnesium 1.5 mg/dL (1.5-2.4); Sodium 144 mmol/L (135-145); Total Bilirubin 0.3 mg/dL (0.3-1.2); Total Protein 4.2 g/dL (6.2-8.2)
--- NOTE | 2024-10-30 10:57 | P.PN ---
Subjective Patient is seen in follow-up for acute kidney injury, hemodialysis dependent. Started on hemodialysis October 24, 2024. Has right femoral dialysis catheter. The catheter was exchanged October 26, 2024. Poor historian. Last dialysis was October 27, 2024. Creatinine 5.5 today. Vital signs are stable. General: Resting in bed. HEENT: No JVD. LUNGS: No audible rhonchi or wheezes. HEART: Rate and Rhythm are regular. ABDOMEN: No distention. EXTREMITITES: No edema. Objective - Vital Signs Vital signs: Vital Signs Temp 98.9 F 10/30/24 07:55 Pulse 73 10/30/24 07:55 Resp 16 10/30/24 07:55 BP 112/74 10/30/24 07:55 Pulse Ox 98 10/30/24 07:55 FiO2 Intake & Output 10/29/24 10/30/24 10/30/24 18:59 06:59 18:59 Intake Total 0 10 Output Total 525 400 Balance -525 -390 Weight 78.925 kg Intake: Oral 0 10 Output: Urine 525 400 Other: Voiding Method Indwelling Catheter Indwelling Catheter # Bowel Movements 1 - Labs CBC & Chem 7: 10/25/24 07:59 10/30/24 04:24 Labs: Abnormal Lab Results - Last 24 Hours (Table) 10/30/24 Range/Units 04:24 BUN 33.7 H (9.0-27.0) mg/dL Creatinine 5.5 H (0.6-1.5) mg/dL Est GFR (CKD-EPI) 11 L (>=60) BUN/Creatinine Ratio 6.13 L (12.00-20.00) Ratio Calcium 7.5 L (8.7-10.3) mg/dL ALT <5 L (10-49) U/L Total Protein 4.2 L (6.2-8.2) g/dL Albumin 2.3 L (3.8-4.9) g/dL Albumin/Globulin Ratio 1.21 L (1.60-3.17) Ratio Microbiology - Last 24 Hours (Table) 10/27/24 14:52 Blood Culture - Preliminary Blood Assessment and Plan Plan: Assessment: 1. Acute kidney injury secondary to ATN secondary to vancomycin toxicity. Vancomycin level elevated at 50.6 dated October 12, 2024. Right-sided hydronephrosis noted on kidney ultrasound. This appears to be chronic in nature with atrophy of the right kidney noted as well. Started on hemodialysis October 24, 2024. Baseline creatinine near 0.6-0.7 and peaked at 7.2 this admission. Nonoliguric. Creatinine 5.5 today. 2. Metabolic acidosis secondary to acute kidney injury. Improved. 3. 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 4. Sacral ulcer. 5. Hypertension with chronic kidney disease stage I. Stable. 6. Parkinson's disease. Plan: Hemodialysis today. Right femoral dialysis catheter was not functioning and was exchanged October 26, 2024. Permacath placement pending. Avoid nephrotoxins. Continue to monitor renal function and urine output. Monitor for renal recovery outpatient. Maintain IV fluids. Outpatient dialysis to be set up by case management.
[2024-10-30 12:03] LABS: Glucose,Whole Blood 70 mg/dL (70-110)
--- NOTE | 2024-10-30 15:04 | P.PN ---
Subjective Progress Note Date: 10/29/24 Principal diagnosis: Reason for follow-up is pneumonia infected sacral pressure ulcer Patient is a 63-year-old male with a past medical history significant for hypertension Parkinson's recent admission to the hospital for aspiration pneumonia and also have infected sacral pressure ulcer culture positive for MRSA and Pseudomonas treated with the cefepime vancomycin initially that was transitioned to daptomycin in the outpatient setting has been brought back to the hospital concerning for mental status changes unresponsiveness and there was a question of pneumonia. On today's evaluation that is 10/29/2024,the patient did have resolution of his fever and is afebrile, patient is on room air not requiring supplemental oxygen and breathing comfortably remained to be less responsive not a very good historian no vomiting or diarrhea has been reported. Patient did have a creatinine of 5.2 no CBC was done today Objective - Vital Signs Vital signs: Vital Signs Temp 98.4 F 10/29/24 08:43 Pulse 86 10/29/24 08:43 Resp 17 10/29/24 08:43 BP 147/78 10/29/24 08:43 Pulse Ox 95 10/29/24 08:43 FiO2 Intake & Output 10/28/24 10/29/24 10/29/24 18:59 06:59 18:59 Intake Total 0 460 Output Total 625 400 Balance -625 60 Intake: Oral 0 20 Other 440 Output: Urine 625 400 Other: Voiding Method Indwelling Catheter Indwelling Catheter Indwelling Catheter # Bowel Movements 2 1 - Exam GENERAL DESCRIPTION: An elderly male lying in bed in no distress RESPIRATORY SYSTEM: Unlabored breathing , decreased breath sounds at bases HEART: S1 S2 regular rate and rhythm , ABDOMEN: Soft , no tenderness , Skin generalized maculopapular rash - Labs CBC & Chem 7: 10/25/24 07:59 10/30/24 04:24 Labs: Abnormal Lab Results - Last 24 Hours (Table) 10/28/24 10/29/24 Range/Units 14:14 06:52 Sodium 136 L (137-145) mmol/L BUN 34 H 32.2 H (9-20) mg/dL Creatinine 4.09 H 5.2 H (0.66-1.25) mg/dL Est GFR (CKD-EPI) 12 L (>=60) BUN/Creatinine Ratio 6.19 L (12.00-20.00) Ratio Glucose 68 L (74-99) mg/dL Calcium 7.6 L 7.5 L (8.4-10.2) mg/dL Microbiology - Last 24 Hours (Table) 10/27/24 14:52 Blood Culture - Preliminary Blood Assessment and Plan (1) Pneumonia Current Visit: Yes Status: Acute Code(s): J18.9 - PNEUMONIA, UNSPECIFIED OR GANISM SNOMED Code(s): 007994482 (2) Stage III pressure ulcer of sacral region Current Visit: No Status: Acute Code(s): L89.153 - PRESSURE ULCER OF SACRAL REGION, STAGE 3 SNOMED Code(s): 05390037894886 (3) Rash Current Visit: Yes Status: Acute Code(s): R21 - RASH AND OTHER NONSPECIFIC SKIN ERUPTION SNOMED Code(s): 092104454 Plan: 1patient presenting to the hospital with mental status changes decreased level of responsiveness and confusion which is likely multifactorial patient did have evidence of worsening kidney function and uremia could be contributing to it however patient has been on cefepime which can cause mental status changes and confusion. 2possible pneumonia on the chest x-ray keeping in mind the residential resident with confusion underlying aspiration and gram-negative pneumonia not entirely excluded has received adequate antibiotic for underlying pneumonia 3patient did have resolution of his fever currently on daptomycin to continue follow-up with local wound care as ordered Dictation was produced using [employer] dictation software. please excuse any grammatical, word or spelling errors. Time with Patient: Less than 30
--- NOTE | 2024-10-30 15:05 | P.PN ---
Subjective Progress Note Date: 10/30/24 Principal diagnosis: Reason for follow-up is pneumonia infected sacral pressure ulcer Patient is a 63-year-old male with a past medical history significant for hypertension Parkinson's recent admission to the hospital for aspiration pneumonia and also have infected sacral pressure ulcer culture positive for MRSA and Pseudomonas treated with the cefepime vancomycin initially that was transitioned to daptomycin in the outpatient setting has been brought back to the hospital concerning for mental status changes unresponsiveness and there was a question of pneumonia. On today's evaluation that is 10/30/2024, the patient continues to be afebrile, the patient is on room air and breathing comfortably, the Pt slightly more awake but not with good historian no vomiting or diarrhea has been reported. Patient did have a creatinine of 5.5 no CBC was done today blood culture has been negative Objective - Vital Signs Vital signs: Vital Signs Temp 98.1 F 10/30/24 12:03 Pulse 76 10/30/24 12:03 Resp 16 10/30/24 12:03 BP 135/76 10/30/24 12:03 Pulse Ox 98 10/30/24 12:03 FiO2 Intake & Output 10/29/24 10/30/24 10/30/24 18:59 06:59 18:59 Intake Total 0 10 Output Total 525 400 Balance -525 -390 Weight 78.925 kg Intake: Oral 0 10 Output: Urine 525 400 Other: Voiding Method Indwelling Catheter Indwelling Catheter # Bowel Movements 1 - Exam GENERAL DESCRIPTION: An elderly male lying in bed in no distress RESPIRATORY SYSTEM: Unlabored breathing , decreased breath sounds at bases HEART: S1 S2 regular rate and rhythm , ABDOMEN: Soft , no tenderness , - Labs CBC & Chem 7: 10/25/24 07:59 10/30/24 04:24 Labs: Abnormal Lab Results - Last 24 Hours (Table) 10/30/24 Range/Units 04:24 BUN 33.7 H (9.0-27.0) mg/dL Creatinine 5.5 H (0.6-1.5) mg/dL Est GFR (CKD-EPI) 11 L (>=60) BUN/Creatinine Ratio 6.13 L (12.00-20.00) Ratio Calcium 7.5 L (8.7-10.3) mg/dL ALT <5 L (10-49) U/L Total Protein 4.2 L (6.2-8.2) g/dL Albumin 2.3 L (3.8-4.9) g/dL Albumin/Globulin Ratio 1.21 L (1.60-3.17) Ratio Microbiology - Last 24 Hours (Table) 10/27/24 14:52 Blood Culture - Preliminary Blood Assessment and Plan (1) Pneumonia Current Visit: Yes Status: Acute Code(s): J18.9 - PNEUMONIA, UNSPECIFIED ORGANISM SNOMED Code(s): 588073506 (2) Stage III pressure ulcer of sacral region Current Visit: No Status: Acute Code(s): L89.153 - PRESSURE ULCER OF SACRAL REGION, STAGE 3 SNOMED Code(s): 58802746546563 (3) Rash Current Visit: Yes Status: Acute Code(s): R21 - RASH AND OTHER NONSPECIFIC SKIN ERUPTION SNOMED Code(s): 930873122 Plan: 1patient presenting to the hospital with mental status changes decreased level of responsiveness and confusion which is likely multifactorial patient did have evidence of worsening kidney function and uremia could be contributing to it however patient has been on cefepime which can cause mental status changes and confusion. 2possible pneumonia on the chest x-ray keeping in mind the [facility] resident with confusion underlying aspiration and gram-negative pneumonia not entirely excluded has received adequate antibiotic for underlying pneumonia 3patient did have resolution of his fever and repeat culture currently pending to continue with daptomycin along with local wound care as ordered and monitor clinical course closely Dictation was produced using [employer] dictation software. please excuse any grammatical, word or spelling errors. Time with Patient: Less than 30
[2024-10-30 17:46] LABS: Glucose,Whole Blood 84 mg/dL (70-110)
[2024-10-31 00:21] LABS: Glucose,Whole Blood 88 mg/dL (70-110)
[2024-10-31 06:00] LABS: Glucose,Whole Blood 86 mg/dL (70-110)
--- NOTE | 2024-10-31 06:42 | P.PN ---
Subjective Progress Note Date: 10/30/24 This is a pleasant 63 years old male on 10/01 who was recently discharged from this facility for pressure ulcer stage II on IV vancomycin and cefepime. Currently he presents from sn[facility] for being diaphoretic for 2 days with pressure ulcers on the buttock. Patient cannot provide information , He does not answer questions. He keeps his eye closed and resists opening them, he has a resting tremor, pill rolling tremor in his right hand, he has stiff both upper and lower extremities. Pupils are equal and reactive to light. He has stage II pressure ulcer with some pinkish discoloration, no purulent discharge He has right arm PICC line, he is on IV daptomycin from [facility] started on 10/16 till 10/27 Patient afebrile blood pressure stable WBCs 10.8, hemoglobin 11.5, sodium elevated 151, creatinine 3.9, previously was 1.7 and it was 2, I reviewed the chest x-ray myself .7. Chest x-ray: Airspace opacity projecting the spine correlate for pneumonia per radiologist, I reviewed chest x-ray myself, no significant consolidation, including symmetrical no pleural effusion. 10/19 Patient still confused, does not answer questions. He has pill rolling tremor, yesterday was in his right hand and today in his left hand, he has generalized stiffness most likely related to his Parkinson disease, patient has been confused for the last 3 to 4 days and he was not taking his Parkinson medication , the suspicion of seizure is low however he received Ativan yesterday. CT of the brain was negative neurology service consulted already Also has been treated for sepsis suspected for pressure ulcers also there is suspicion of aspiration pneumonia and currently has been covered with Zosyn. Looks like emergency room team consulted hospice, yesterday after rounding bedside nurse called me stating patient family requesting to talk to hospice team. We are going to talk to family and if they agreeable with going to place NG tube to start his Parkinson medication and other oral medication His hypernatremia and creatinine are trending up. NG tube placed can help also with water flushes He is continued on D5 W at 75 mL/h and dose increased today to 100 mL/h. 10/20 Patient still nonverbal Head of bed at 45 degree NG tube in place Patient is started on water flushes. Also resumed some of his oral medications through NG tube like metoprolol 25 mg as patient blood pressure and heart rate were elevated. No diarrhea. Nutrition consult called for tube feeding Family met with hospice team yesterday per their request, they opted to continue with medical management. No hospice 10/21/2024 Patient is seen in follow-up and mentation is back to baseline. Patient is mostly nonverbal although will say some things per nursing staff. Patient continues with NG tube at this time. Patient is high risk for aspiration and maintained on aspiration precautions. Patient continues on IV antibiotics per ID recommendation. Kidney functions were elevated although significantly improved with concerns of possible error in labs. Patient will need updated PT/OT therapy notes with plans on returning to [facility] once stabilized. 10/22/2024 Patient is seen in follow-up today with multiple consultations following. Patient is unable to have the MRI due to brain stimulator even if turned off per MRI department here. MRI was canceled. Neurology following and will discuss further with family as patient's family is requesting to know the amount of brain functionality patient has. Patient continues to be confused although is more alert today. Creatinine continues to worsen above 6 today and will discuss further with nephrology if there is discussion of possible renal replacement. 10/23/2024 Patient is seen in follow-up today with neurology and nephrology following. Patient continues to have worsening kidney functions up to 7 creatinine today. Nephrology following and discussed with family and placed consult to vascular for temp cath placement to initiate hemodialysis. Patient continues with NG tube as he is NPO and had been aspirating. Dietary consulted and recommending enteral nutrition. Patient does not have a PICC line. 10/24/2024 Patient evaluated in follow up on the medical floor. He has removed his own NG tube. Remains NPO due to signigicant and continued aspiration. He has had right groin temporary hemodialysis catheter placed. Nephrology following. Patient is currently scheduled to undergo hemodialysis. Patient continues on LR at 75 mls/hr. Remains on IV daptomycin. 10/25/2024 Patient evaluated on the medical floor. He is more awake and alert as compared to yesterday although he is not responding to questions. He is mumbling. He appears to be resting comfortably. He underwent fist session of hemodialysis yesterday and patient tolerated. He is making adequate urine output. BUN of 39 today and creatinine of 4.43. Magnesium 1.7. Hemoglobin 9.4. 10/26/2024 Patient is seen in follow-up today and is asleep although arousable, mostly nonverbal. Multiple consultations following including nephrology and patient scheduled to undergo hemodialysis today although it appears dialysis catheter is clotted and vascular surgery reconsulted for replacement. To discuss further with family regarding overall treatment plan. Patient has not eaten and is high risk for aspiration although not awake enough to tolerate any form of diet. Mentation not significantly improved from admission 10/27/2024 Patient is seen in follow-up today with multiple consultations following and received an exchanged dialysis catheter and is undergoing dialysis at this time. Mentation is slightly improved. Continues with NG tube. Will reconsult speech for swallow eval. Patient afebrile and is continued on IV antibiotics with ID following. 10/28/2024 Patient is seen in follow-up today much more awake and alert following commands and talking and answering questions appropriately. Multiple consultations including neurology, nephrology, infectious disease following. Patient maintained on hemodialysis showing improvements in kidney functions and creatinine is 4.9 today. Patient continues to make urine and will continue with [place] catheter for now. Patient will be reevaluated by speech today. Continue with current medication regimen including antibiotics. Patient family refusing hospice at this time and will need to discuss further with nephrology if patient will be continued on hemodialysis while outpatient. Plan will be for return to [facility] on discharge. 10/29/2024 Patient is seen in follow-up today with no acute overnight issues noted. Patient will be scheduled to receive hemodialysis today as kidney functions have slightly worsened and up above 5 and creatinine and will prepare for outpatient hemodialysis. Vascular surgery reconsulted for permacath placement and discussed with social work regarding discharge planning to [facility]. Patient will need to be arranged for outpatient hemodialysis. Patient tolerating pured diet and recommend to continue with aspiration precautions 10/30/2024 Patient is seen in follow-up today and will be receiving hemodialysis today. Plan is for permacath placement and Dr. Mcqueen has been reconsulted for this. Pending at this time. Plan will be for outpatient dialysis to be arranged and patient be returning to [facility]. Patient is continued on antibiotics with infectious disease following and recommend to continue with strict aspiration precautions. Supervision with meals and pured diet. Review of systems: Unable to assess as patient is mostly nonverbal, is answering questions appropriately and following commands. Physical exam: GENERAL: The patient is more awake and alert today although continues with c onfusion and mostly nonverbal, continued jerking movements likely related to his Parkinson disease, ill-appearing, elderly appearing HEENT: Pupils are round and equally reacting to light. EOMI. No scleral icterus. No conjunctival pallor. Normocephalic, atraumatic. No pharyngeal erythema. No thyromegaly. CARDIOVASCULAR: S1 and S2 muffled PULMONARY: Diminished breath sounds bilaterally otherwise chest is clear to auscultation, no wheezing , no crackles. ABDOMEN: Soft, nontender, nondistended, normoactive bowel sounds. No palpable organomegaly. MUSCULOSKELETAL: No joint swelling or deformity. EXTREMITIES: No cyanosis, clubbing, or pedal edema. NEUROLOGICAL: Continues to have occasional confusion, although more at baseline and answering questions appropriately and following commands. SKIN: No rashes. no petechiae. Assessment: Stage III sacral pressure ulcer with suspected infection, present on admission, blood cultures negative. Recent wound culture in September reveals pseudomonas aeruginosa and presumptive MRSA. aspiration pneumonia, present on admission Metabolic/toxic encephalopathy multifactorial due to uremia and aspiration pneumonia as well as underlying parkinsons/dementia. Hypernatremia, improving Hypokalemia, improved Acute kidney injury, likely ATN with worsening kidney function, started on hemodialysis per nephrology, patient will require outpatient hemodialysis which is being arranged Parkinson disease, patient has resting tremor in his right hand and generalized stiffness, he is not taking his medication with nonadherence to medication, has a stimulator Congenital UPJ with nonfunctioning right kidney and chronic right hydronephrosis, no need for any intervention per urologist recently evaluated him during last admission Hypertension Hyperlipidemia GI prophylaxis DVT prophylaxis No code Plan: Continue with Zosyn and daptomycin with infectious disease following. Blood cultures remain negative, will discuss with infectious disease regarding discharge planning if patient will require antibiotics on discharge Neurology evaluated the patient recommending MRI initially although patient has a stimulator in the brain that is not compatible with MRI. Mentation is improved and at baseline Resume home medication, patient is on pured diet and recommend aspiration precautions and will continue Patient had hemodialysis and had some improvement in his mentation and will be requiring outpatient dialysis. Social work following making arrangements including arranging for chair time. Patient will be returning to [facility] on discharge Family have discussed the possibility of hospice previously although refusing and would like to continue with dialysis and current treatment plan. Patient has poor quality of life and hospice would be appropriate. The impression and plan of care has been dictated by Maye Johnson, Nurse Practitioner as directed. Dr. Frank MD I have performed a history and examination and MDM of this patient, discussed the same with the dictator, and agree with the dictator's assessment and plan as written ,documented as a scribe. Based on total visit time, I have performed more than 50% of the visit. Objective - Vital Signs Vital signs: Vital Signs Temp 98.6 F 10/31/24 00:57 Pulse 84 10/31/24 00:57 Resp 16 10/31/24 00:57 BP 136/76 10/31/24 00:57 Pulse Ox 96 10/31/24 00:57 FiO2 Intake & Output 10/30/24 10/30/24 10/31/24 06:59 18:59 06:59 Intake Total 10 1340 Output Total 400 1500 200 Balance -390 -160 -200 Intake: Oral 10 340 Hemodialysis 1000 Output: Urine 400 500 200 Hemodialysis 400 Hemodialysis Net Amount 600 Other: Voiding Method Indwelling Catheter Indwelling Catheter Indwelling Catheter # Bowel Movements 1 1 - Labs CBC & Chem 7: 10/25/24 07:59 10/30/24 04:24 Labs: Abnormal Lab Results - Last 24 Hours (Table) 10/30/24 Range/Units 04:24 BUN 33.7 H (9.0-27.0) mg/dL Creatinine 5.5 H (0.6-1.5) mg/dL Est GFR (CKD-EPI) 11 L (>=60) BUN/Creatinine Ratio 6.13 L (12.00-20.00) Ratio Calcium 7.5 L (8.7-10.3) mg/dL ALT <5 L (10-49) U/L Total Protein 4.2 L (6.2-8.2) g/dL Albumin 2.3 L (3.8-4.9) g/dL Albumin/Globulin Ratio 1.21 L (1.60-3.17) Ratio Microbiology - Last 24 Hours (Table) 10/27/24 14:52 Blood Culture - Preliminary Blood
[2024-10-31 07:41] LABS: Basophils % (A) 0 %; Eosinophils # (A) 0.4 k/uL (0-0.7); Eosinophils % (A) 6 %; HCT 21.7 % (39.0-53.0); Lymphocytes # (A) 1.5 k/uL (1.0-4.8); Lymphocytes % (A) 23 %; MCH 28.4 pg (25.0-35.0); MCHC 32.4 g/dL (31.0-37.0); MCV 87.7 fL (80.0-100.0); Monocytes # (A) 0.3 k/uL (0-1.0); Monocytes % (A) 5 %; Neutrophils # (A) 4.1 k/uL (1.3-7.7); Neutrophils % (A) 64 %; Poikilocytosis Slight; RBC 2.47 m/uL (4.30-5.90); RDW 14.5 % (11.5-15.5); WBC 6.4 k/uL (3.8-10.6)
[2024-10-31 08:02] LABS: African American GFR (CKD) 22 (>60 ml/min/1.73 sqM); Anion Gap 4 mmol/L; Blood Urea Nitrogen 19 mg/dL (9-20); Calcium 7.6 mg/dL (8.4-10.2); Carbon Dioxide 30 mmol/L (22-30); Chloride 101 mmol/L (98-107); Glucose 73 mg/dL (74-99); Non-African American GFR(CKD) 19 (>60 ml/min/1.73 sqM); Potassium 3.6 mmol/L (3.5-5.1); Sodium 135 mmol/L (137-145)
[2024-10-31 08:03] LABS: Platelet Count 200 k/uL (150-450)
--- NOTE | 2024-10-31 10:36 | P.PN ---
Subjective Patient is seen in follow-up for acute kidney injury, hemodialysis dependent. Started on hemodialysis October 24, 2024. Has right femoral dialysis catheter. The catheter was exchanged October 26, 2024. Poor historian. Last dialysis was October 30, 2024. Scheduled for tunneled catheter placement today. Vital signs are stable. General: Resting in bed. HEENT: No JVD. LUNGS: No audible rhonchi or wheezes. HEART: Rate and Rhythm are regular. ABDOMEN: No distention. EXTREMITITES: No edema. Objective - Vital Signs Vital signs: Vital Signs Temp 98.2 F 10/31/24 07:11 Pulse 86 10/31/24 07:11 Resp 16 10/31/24 07:11 BP 136/73 10/31/24 07:11 Pulse Ox 94 L 10/31/24 07:11 FiO2 Intake & Output 10/30/24 10/31/24 10/31/24 18:59 06:59 18:59 Intake Total 1340 Output Total 1500 200 Balance -160 -200 Intake: Oral 340 Hemodialysis 1000 Output: Urine 500 200 Hemodialysis 400 Hemodialysis Net Amount 600 Other: Voiding Method Indwelling Catheter Indwelling Catheter # Bowel Movements 1 - Labs CBC & Chem 7: 10/31/24 07:01 10/31/24 07:01 Labs: Abnormal Lab Results - Last 24 Hours (Table) 10/31/24 10/31/24 Range/Units 07:01 07:01 RBC 2.47 L (4.30-5.90) m/uL Hgb 7.0 L D (13.0-17.5) gm/dL Hct 21.7 L (39.0-53.0) % Sodium 135 L (137-145) mmol/L Creatinine 3.28 H (0.66-1.25) mg/dL Glucose 73 L (74-99) mg/dL Calcium 7.6 L (8.4-10.2) mg/dL Microbiology - Last 24 Hours (Table) 10/27/24 14:52 Blood Culture - Preliminary Blood Assessment and Plan Plan: Assessment: 1. Acute kidney injury secondary to ATN secondary to vancomycin toxicity. Vancomycin level elevated at 50.6 dated October 12, 2024. Right-sided hydronephrosis noted on kidney ultrasound. This appears to be chronic in nature with atrophy of the right kidney noted as well. Started on hemodialysis October 24, 2024. Baseline creatinine near 0.6-0.7 and peaked at 7.2 this admission. Nonoliguric. Creatinine 5.5 dated October 30, 2024. 2. Metabolic acidosis secondary to acute kidney injury. 3. 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 4. Sacral ulcer. 5. Hypertension with chronic kidney disease stage I. Stable. 6. Parkinson's disease. Plan: Hemodialysis Saturday. Right femoral dialysis catheter was not functioning and was exchanged October 26, 2024. For tunneled femoral catheter placement today. Avoid nephrotoxins. Continue to monitor renal function and urine output. Monitor for renal recovery outpatient. Maintain IV fluids. Outpatient dialysis to be set up by case management.
[2024-10-31] MEDS: fentaNYL (PF) 50 MCG/ML 2 ML AMP IVP ONE ×2 (11:15→11:28)
[2024-10-31] MEDS: MIDAZOLAM 2 MG/2 ML VIAL IVP ONE (11:15)
[2024-10-31] MEDS: LIDOCAINE 1% INJ 10MG/ML (20 ML MDV) SQ ONE (11:17)
[2024-10-31] MEDS: HEPARIN SODIUM,PORCINE (1 ML) 2,500 UNIT in SODIUM CHLORIDE 0.9% 250 ML IRRIGATION ONE (11:26)
--- NOTE | 2024-10-31 11:46 | P.PCN ---
Description of Procedure: Preop diagnosis is acute chronic renal failure Postop the same Procedure placement of 28 cm dialysis catheter right femoral approach this patient had a temporary right femoral dialysis catheter placed in the past. To the Bowling Floor Manager right groin was prepped and draped in Prestel manner. Lidocaine for infiltrated under IV sedation then we passed a Glidewire which was rechecked in the fluoroscopy it was in the inferior vena cava. The old catheter was removed then we placed a sheath on the top of the guidewire through the sheath we replaced the pulm a dialysis catheter sheath was removed flushed with heparin saline hep-locked secured with 3-0 nylon patient tarted the procedure well and transferred to room in stable patient
--- NOTE | 2024-10-31 11:55 | IR ---
EXAMINATION TYPE: IR cvc insert central tunneled Intraoperative/procedural fluoroscopic services were provided. CLINICAL INDICATION:Male, 63 years old with history of Dialysis, 2.0m/13.1993DAP, 14.5F x 28cm Dialys is cath rt gr; , [facility] FINDINGS: Total fluoroscopy time is 2.0 min. DAP: 13.1993 Gycm2 uGym2 Please see the operative/procedural note for further details. [facility], , 10/31/2024 11:53 AM
[2024-10-31 11:56] LABS: Glucose,Whole Blood 92 mg/dL (70-110)
--- NOTE | 2024-10-31 15:21 | P.PN ---
Subjective Progress Note Date: 10/31/24 Principal diagnosis: Reason for follow-up is pneumonia infected sacral pressure ulcer Patient is a 63-year-old male with a past medical history significant for hypertension Parkinson's recent admission to the hospital for aspiration pneumonia and also have infected sacral pressure ulcer culture positive for MRSA and Pseudomonas treated with the cefepime vancomycin initially that was transitioned to daptomycin in the outpatient setting has been brought back to the hospital concerning for mental status changes unresponsiveness and there was a question of pneumonia. On today's evaluation that is 10/31/2024, patient did not have any fever and is breathing comfortably currently on room air the patient is slightly more awake but not a good historian no vomiting diarrhea any changes reported by the senior service aide. Patient white count 6.4, creatinine 3.28 culture has been negative Objective - Vital Signs Vital signs: Vital Signs Temp 99.4 F 10/31/24 13:14 Pulse 90 10/31/24 13:14 Resp 16 10/31/24 13:14 BP 137/86 10/31/24 13:14 Pulse Ox 93 L 10/31/24 13:14 FiO2 Intake & Output 10/30/24 10/31/24 10/31/24 18:59 06:59 18:59 Intake Total 1340 50 Output Total 1500 200 Balance -160 -200 50 Intake: IV 50 Oral 340 Hemodialysis 1000 Output: Urine 500 200 Hemodialysis 400 Hemodialysis Net Amount 600 Other: Voiding Method Indwelling Catheter Indwelling Catheter Indwelling Catheter # Bowel Movements 1 - Exam GENERAL DESCRIPTION: An elderly male lying in bed in no distress RESPIRATORY SYSTEM: Unlabored breathing , decreased breath sounds at bases HEART: S1 S2 regular rate and rhythm , ABDOMEN: Soft , no tenderness , - Labs CBC & Chem 7: 10/31/24 07:01 10/31/24 07:01 Labs: Abnormal Lab Results - Last 24 Hours (Table) 10/31/24 10/31/24 Range/Units 07:01 07:01 RBC 2.47 L (4.30-5.90) m/uL Hgb 7.0 L D (13.0-17.5) gm/dL Hct 21.7 L (39.0-53.0) % Sodium 135 L (137-145) mmol/L Creatinine 3.28 H (0.66-1.25) mg/dL Glucose 73 L (74-99) mg/dL Calcium 7.6 L (8.4-10.2) mg/dL Microbiology - Last 24 Hours (Table) 10/27/24 14:52 Blood Culture - Preliminary Blood Assessment and Plan (1) Pneumonia Current Visit: Yes Status: Acute Code(s): J18.9 - PNEUMONIA, UNSPECIFIED ORGANISM SNOMED Code(s): 185970320 (2) Stage III pressure ulcer of sacral region Current Visit: No Status: Acute Code(s): L89.153 - PRESSURE ULCER OF SACRAL REGION, STAGE 3 SNOMED Code(s): 54170121982463 (3) Rash Current Visit: Yes Status: Acute Code(s): R21 - RASH AND OTHER NONSPECIFIC SKIN ERUPTION SNOMED Code(s): 883011967 Plan: 1patient presenting to the hospital with mental status changes decreased level of responsiveness and confusion which is likely multifactorial patient did have evidence of worsening kidney function and uremia could be contributing to it however patient has been on cefepime which can cause mental status changes and confusion. 2possible pneumonia on the chest x-ray keeping in mind the [facility] resident with confusion underlying aspiration and gram-negative pneumonia not entirely excluded has received adequate antibiotic for underlying pneumonia 3patient did have resolution of his fever and repeat culture so far negative has completed his course of daptomycin and will monitor closely off antibiotic therapy at this point Dictation was produced using [employer] dictation software. please excuse any grammatical, word or spelling errors. Time with Patient: Less than 30
[2024-10-31 17:51] LABS: Glucose,Whole Blood 96 mg/dL (70-110)
[2024-11-01 00:34] LABS: Glucose,Whole Blood 80 mg/dL (70-110)
--- NOTE | 2024-11-01 01:41 | P.PN ---
Subjective Progress Note Date: 10/31/24 This is a pleasant 63 years old male on 10/01 who was recently discharged from this facility for pressure ulcer stage II on IV vancomycin and cefepime. Currently he presents from prison for being diaphoretic for 2 days with pressure ulcers on the buttock. Patient cannot provide information , He does not answer questions. He keeps his eye closed and resists opening them, he has a resting tremor, pill rolling tremor in his right hand, he has stiff both upper and lower extremities. Pupils are equal and reactive to light. He has stage II pressure ulcer with some pinkish discoloration, no purulent discharge He has right arm PICC line, he is on IV daptomycin from prison started on 10/16 till 10/27 Patient afebrile blood pressure stable WBCs 10.8, hemoglobin 11.5, sodium elevated 151, creatinine 3.9, previously was 1.7 and it was 2, I reviewed the chest x-ray myself .7. Chest x-ray: Airspace opacity projecting the spine correlate for pneumonia per radiologist, I reviewed chest x-ray myself, no significant consolidation, including symmetrical no pleural effusion. 10/19 Patient still confused, does not answer questions. He has pill rolling tremor, yesterday was in his right hand and today in his left hand, he has generalized stiffness most likely related to his Parkinson disease, patient has been confused for the last 3 to 4 days and he was not taking his Parkinson medication , the suspicion of seizure is low however he received Ativan yesterday. CT of the brain was negative neurology service consulted already Also has been treated for sepsis suspected for pressure ulcers also there is suspicion of aspiration pneumonia and currently has been covered with Zosyn. Looks like emergency room team consulted hospice, yesterday after rounding bedside nurse called me stating patient family requesting to talk to hospice team. We are going to talk to family and if they agreeable with going to place NG tube to start his Parkinson medication and other oral medication His hypernatremia and creatinine are trending up. NG tube placed can help also with water flushes He is continued on D5 W at 75 mL/h and dose increased today to 100 mL/h. 10/20 Patient still nonverbal Head of bed at 45 degree NG tube in place Patient is started on water flushes. Also resumed some of his oral medications through NG tube like metoprolol 25 mg as patient blood pressure and heart rate were elevated. No diarrhea. Nutrition consult called for tube feeding Family met with hospice team yesterday per their request, they opted to continue with medical management. No hospice 10/21/2024 Patient is seen in follow-up and mentation is back to baseline. Patient is mostly nonverbal although will say some things per nursing staff. Patient continues with NG tube at this time. Patient is high risk for aspiration and maintained on aspiration precautions. Patient continues on IV antibiotics per ID recommendation. Kidney functions were elevated although significantly improved with concerns of possible error in labs. Patient will need updated PT/OT therapy notes with plans on returning to [facility] once stabilized. 10/22/2024 Patient is seen in follow-up today with multiple consultations following. Patient is unable to have the MRI due to brain stimulator even if turned off per MRI department here. MRI was canceled. Neurology following and will discuss further with family as patient's family is requesting to know the amount of brain functionality patient has. Patient continues to be confused although is more alert today. Creatinine continues to worsen above 6 today and will discuss further with nephrology if there is discussion of possible renal replacement. 10/23/2024 Patient is seen in follow-up today with neurology and nephrology following. Patient continues to have worsening kidney functions up to 7 creatinine today. Nephrology following and discussed with family and placed consult to vascular for temp cath placement to initiate hemodialysis. Patient continues with NG tube as he is NPO and had been aspirating. Dietary consulted and recommending enteral nutrition. Patient does not have a PICC line. 10/24/2024 Patient evaluated in follow up on the medical floor. He has removed his own NG tube. Remains NPO due to signigicant and continued aspiration. He has had right groin temporary hemodialysis catheter placed. Nephrology following. Patient is currently scheduled to undergo hemodialysis. Patient continues on LR at 75 mls/hr. Remains on IV daptomycin. 10/25/2024 Patient evaluated on the medical floor. He is more awake and alert as compared to yesterday although he is not responding to questions. He is mumbling. He appears to be resting comfortably. He underwent fist session of hemodialysis yesterday and patient tolerated. He is making adequate urine output. BUN of 39 today and creatinine of 4.43. Magnesium 1.7. Hemoglobin 9.4. 10/26/2024 Patient is seen in follow-up today and is asleep although arousable, mostly nonverbal. Multiple consultations following including nephrology and patient scheduled to undergo hemodialysis today although it appears dialysis catheter is clotted and vascular surgery reconsulted for replacement. To discuss further with family regarding overall treatment plan. Patient has not eaten and is high risk for aspiration although not awake enough to tolerate any form of diet. Mentation not significantly improved from admission 10/27/2024 Patient is seen in follow-up today with multiple consultations following and received an exchanged dialysis catheter and is undergoing dialysis at this time. Mentation is slightly improved. Continues with NG tube. Will reconsult speech for swallow eval. Patient afebrile and is continued on IV antibiotics with ID following. 10/28/2024 Patient is seen in follow-up today much more awake and alert following commands and talking and answering questions appropriately. Multiple consultations including neurology, nephrology, infectious disease following. Patient maintained on hemodialysis showing improvements in kidney functions and creatinine is 4.9 today. Patient continues to make urine and will continue with [place] catheter for now. Patient will be reevaluated by speech today. Continue with current medication regimen including antibiotics. Patient family refusing hospice at this time and will need to discuss further with nephrology if patient will be continued on hemodialysis while outpatient. Plan will be for return to [facility] on discharge. 10/29/2024 Patient is seen in follow-up today with no acute overnight issues noted. Patient will be scheduled to receive hemodialysis today as kidney functions have slightly worsened and up above 5 and creatinine and will prepare for outpatient hemodialysis. Vascular surgery reconsulted for permacath placement and discussed with social work regarding discharge planning to [facility]. Patient will need to be arranged for outpatient hemodialysis. Patient tolerating pured diet and recommend to continue with aspiration precautions 10/30/2024 Patient is seen in follow-up today and will be receiving hemodialysis today. Plan is for permacath placement and Dr. Mcqueen has been reconsulted for this. Pending at this time. Plan will be for outpatient dialysis to be arranged and patient be returning to [facility]. Patient is continued on antibiotics with infectious disease following and recommend to continue with strict aspiration precautions. Supervision with meals and pured diet. 10/31/2024 Patient seen in follow-up this morning currently n.p.o. as patient is scheduled to undergo permacath placement with Dr. Mcqueen vascular surgery today. Plans will be for dialysis outpatient and will be returning to [facility]. Case management following and will likely occur early next week Saturday or Saturday. Patient to receive dialysis likely tomorrow per nephrology and kidney functions are improved and patient is making urine. Infectious disease following and patient will be monitored closely off antibiotic therapy.. Patient has received adequate antibiotics at this time. Review of systems: Unable to assess as patient is mostly nonverbal, is answering questions appropriately and following commands. Physical exam: GENERAL: The patient is more awake and alert today although continues with confusion and mostly nonverbal, continued jerking movements likely related to his Parkinson disease, ill-appearing, elderly appearing HEENT: Pupils are round and equally reacting to light. EOMI. No scleral icterus. No conjunctival pallor. Normocephalic, atraumatic. No pharyngeal erythema. No thyromegaly. CARDIOVASCULAR: S1 and S2 muffled PULMONARY: Diminished breath sounds bilaterally otherwise chest is clear to auscultation, no wheezing , no crackles. ABDOMEN: Soft, nontender, nondistended, normoactive bowel sounds. No palpable organomegaly. MUSCULOSKELETAL: No joint swelling or deformity. EXTREMITIES: No cyanosis, clubbing, or pedal edema. NEUROLOGICAL: Continues to have occasional confusion, although more at baseline and answering questions appropriately and following commands. SKIN: No rashes. no petechiae. Assessment: Stage III sacral pressure ulcer with suspected infection, present on admission, blood cultures negative. Recent wound culture in September reveals pseudomonas aeruginosa and presumptive MRSA. aspiration pneumonia, present on admission Metabolic/toxic encephalopathy multifactorial due to uremia and aspiration pneumonia as well as underlying parkinsons/dementia. Improving Hypernatremia, improving Hypokalemia, improved Acute kidney injury, likely ATN with worsening kidney function, started on hemodialysis per nephrology, patient will require outpatient hemodialysis which is being arranged Parkinson disease, patient has resting tremor in his right hand and generalized stiffness, he is not taking his medication with nonadherence to medication, has a stimulator Congenital UPJ with nonfunctioning right kidney and chronic right hydronephrosis, no need for any intervention per urologist recently evaluated him during last admission Hypertension Hyperlipidemia GI prophylaxis DVT prophylaxis No code Plan: Infectious disease following and patient was maintained on antibiotics and have received adequate antibiotic therapy and will be monitored closely off antibiotics at this time Neurology evaluated the patient recommending MRI initially although patient has a stimulator in the brain that is not compatible with MRI. Mentation is improved and at baseline Resume home medication, patient is on pured diet and recommend aspiration precautions and will continue Patient to receive permacath with Dr. Mcqueen vascular surgery today as per nephrology patient will need hemodialysis outpatient Per nursing staff, family reported they will be taking the patient home and will not be returning to [facility]. Will await social work return on Saturday to discuss discharge planning Family have discussed the possibility of hospice previously although refusing and would like to continue with dialysis and current treatment plan. Patient has poor quality of life and hospice would be appropriate. The impression and plan of care has been dictated by Maye Johnson, Nurse Practitioner as directed. Dr. Frank MD I have performed a history and examination and MDM of this patient, discussed the same with the dictator, and agree with the dictator's assessment and plan as written ,documented as a scribe. Based on total visit time, I have performed more than 50% of the visit. Objective - Vital Signs Vital signs: Vital Signs Temp 98.2 F 10/31/24 07:11 Pulse 86 10/31/24 07:11 Resp 16 10/31/24 07:11 BP 136/73 10/31/24 07:11 Pulse Ox 94 L 10/31/24 07:11 FiO2 Intake & Output 10/30/24 10/31/24 10/31/24 18:59 06:59 18:59 Intake Total 1340 Output Total 1500 200 Balance -160 -200 Intake: Oral 340 Hemodialysis 1000 Output: Urine 500 200 Hemodialysis 400 Hemodialysis Net Amount 600 Other: Voiding Method Indwelling Catheter Indwelling Catheter # Bowel Movements 1 - Labs CBC & Chem 7: 10/31/24 07:01 10/31/24 07:01 Labs: Abnormal Lab Results - Last 24 Hours (Table) 10/31/24 10/31/24 Range/Units 07:01 07:01 RBC 2.47 L (4.30-5.90) m/uL Hgb 7.0 L D (13.0-17.5) gm/dL Hct 21.7 L (39.0-53.0) % Sodium 135 L (137-145) mmol/L Creatinine 3.28 H (0.66-1.25) mg/dL Glucose 73 L (74-99) mg/dL Calcium 7.6 L (8.4-10.2) mg/dL Microbiology - Last 24 Hours (Table) 10/27/24 14:52 Blood Culture - Preliminary Blood
[2024-11-01 06:21] LABS: Glucose,Whole Blood 84 mg/dL (70-110)
[2024-11-01 08:34] LABS: Basophils % (A) 0 %; Eosinophils # (A) 0.3 k/uL (0-0.7); Eosinophils % (A) 4 %; HCT 21.2 % (39.0-53.0); Lymphocytes # (A) 1.3 k/uL (1.0-4.8); Lymphocytes % (A) 19 %; MCH 28.2 pg (25.0-35.0); MCV 88.1 fL (80.0-100.0); Mean Platelet Volume 7.9; Monocytes # (A) 0.3 k/uL (0-1.0); Monocytes % (A) 5 %; Neutrophils # (A) 4.7 k/uL (1.3-7.7); Neutrophils % (A) 69 %; Platelet Count 227 k/uL (150-450); RBC 2.41 m/uL (4.30-5.90); RDW 14.4 % (11.5-15.5); WBC 6.8 k/uL (3.8-10.6)
[2024-11-01 08:51] LABS: African American GFR (CKD) 19 (>60 ml/min/1.73 sqM); Anion Gap 4 mmol/L; Blood Urea Nitrogen 21 mg/dL (9-20); Calcium 7.5 mg/dL (8.4-10.2); Carbon Dioxide 28 mmol/L (22-30); Chloride 105 mmol/L (98-107); Glucose 70 mg/dL (74-99); Non-African American GFR(CKD) 17 (>60 ml/min/1.73 sqM); Potassium 3.6 mmol/L (3.5-5.1); Sodium 137 mmol/L (137-145)
[2024-11-01 08:59] LABS: HGB 6.8 gm/dL (13.0-17.5)
--- NOTE | 2024-11-01 10:45 | P.PN ---
Subjective Patient is seen in follow-up for acute kidney injury, hemodialysis dependent. Started on hemodialysis October 24, 2024. Now has a tunneled femoral catheter which was placed October 31, 2024. Last dialysis was October 30, 2024. Hemoglobin 6.8. Vital signs are stable. General: Resting in bed. HEENT: No JVD. LUNGS: No audible rhonchi or wheezes. HEART: Rate and Rhythm are regular. ABDOMEN: No distention. EXTREMITITES: No edema. Objective - Vital Signs Vital signs: Vital Signs Temp 98 F 11/01/24 06:22 Pulse 63 11/01/24 06:22 Resp 16 11/01/24 06:22 BP 148/79 11/01/24 06:22 Pulse Ox 95 11/01/24 06:22 FiO2 Intake & Output 10/31/24 11/01/24 11/01/24 18:59 06:59 18:59 Intake Total 150 Output Total 500 500 Balance -350 -500 Intake: IV 50 Oral 100 Output: Urine 500 500 Other: Voiding Method Indwelling Catheter Indwelling Catheter Indwelling Catheter # Bowel Movements 1 1 - Labs CBC & Chem 7: 11/01/24 07:18 11/01/24 07:18 Labs: Abnormal Lab Results - Last 24 Hours (Table) 11/01/24 11/01/24 11/01/24 Range/Units 07:18 07:18 09:13 RBC 2.41 L (4.30-5.90) m/uL Hgb 6.8 L* (13.0-17.5) gm/dL Hct 21.2 L (39.0-53.0) % BUN 21 H (9-20) mg/dL Creatinine 3.60 H (0.66-1.25) mg/dL Glucose 70 L (74-99) mg/dL Calcium 7.5 L (8.4-10.2) mg/dL Crossmatch See Detail Assessment and Plan Plan: Assessment: 1. Acute kidney injury secondary to ATN secondary to vancomycin toxicity. Vancomycin level elevated at 50.6 dated October 12, 2024. Right-sided hydronephrosis noted on kidney ultrasound. This appears to be chronic in nature with atrophy of the right kidney noted as well. Started on hemodialysis October 24, 2024. Baseline creatinine near 0.6-0.7 and peaked at 7.2 this admission. Nonoliguric. Creatinine 5.5 dated October 30, 2024. 2. Metabolic acidosis secondary to acute kidney injury. 3. 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 4. Sacral ulcer. 5. Hypertension with chronic kidney disease stage I. Stable. 6. Parkinson's disease. 7. Acute blood loss anemia with component of renal failure. Plan: Hemodialysis Saturday. Has tunneled femoral catheter which was placed October 31, 2024. Avoid nephrotoxins. Continue to monitor renal function and urine output. Monitor for renal recovery outpatient. Hep-Lock IV fluids. IV DDAVP x 1 dose today. Add Aranesp. Blood transfusion pending. Outpatient dialysis to be set up by case management.
[2024-11-01 12:00] LABS: Glucose,Whole Blood 85 mg/dL (70-110)
[2024-11-01] MEDS: DESMOPRESSIN ACETATE 20 MCG in SODIUM CHLORIDE 0.9% 50 ML IVPB ONE (14:53)
[2024-11-01] MEDS: DARBEPOETIN ALFA 40 MCG/0.4 ML SYRINGE SQ SCH (15:05)
[2024-11-01 17:43] LABS: Glucose,Whole Blood 94 mg/dL (70-110)
--- NOTE | 2024-11-01 21:39 | P.PN ---
Subjective Progress Note Date: 11/01/24 Principal diagnosis: Reason for follow-up is pneumonia infected sacral pressure ulcer Patient is a 63-year-old male with a past medical history significant for hypertension Parkinson's recent admission to the hospital for aspiration pneumonia and also have infected sacral pressure ulcer culture positive for MRSA and Pseudomonas treated with the cefepime vancomycin initially that was transitioned to daptomycin in the outpatient setting has been brought back to the hospital concerning for mental status changes unresponsiveness and there was a question of pneumonia. On today's evaluation that is 11/01/2024, patient did not have any fever and denies any chills, patient is more awake and alert breathing comfortably on room air, patient with no chest pain or cough patient did not have any abdominal pain nausea vomiting or any diarrhea has been reported Patient white count 6.8, creatinine 3.60 Objective - Vital Signs Vital signs: Vital Signs Temp 98.5 F 11/01/24 19:50 Pulse 94 11/01/24 19:50 Resp 17 11/01/24 19:50 BP 180/72 11/01/24 19:50 Pulse Ox 95 11/01/24 19:50 FiO2 Intake & Output 11/01/24 11/01/24 11/02/24 06:59 18:59 06:59 Intake Total 481 Output Total 500 400 Balance -500 81 Intake: Oral 200 Blood Product 281 Rc Pheresis As-3 Unit 281 [id number] Output: Urine 500 400 Other: Voiding Method Indwelling Catheter Indwelling Catheter Indwelling Catheter # Bowel Movements 1 - Exam GENERAL DESCRIPTION: An elderly male lying in bed in no distress RESPIRATORY SYSTEM: Unlabored breathing , decreased breath sounds at bases HEART: S1 S2 regular rate and rhythm , ABDOMEN: Soft , no tenderness , - Labs CBC & Chem 7: 11/01/24 07:18 11/01/24 07:18 Labs: Abnormal Lab Results - Last 24 Hours (Table) 11/01/24 11/01/24 11/01/24 Range/Units 07:18 07:18 09:13 RBC 2.41 L (4.30-5.90) m/uL Hgb 6.8 L* (13.0-17.5) gm/dL Hct 21.2 L (39.0-53.0) % BUN 21 H (9-20) mg/dL Creatinine 3.60 H (0.66-1.25) mg/dL Glucose 70 L (74-99) mg/dL Calcium 7.5 L (8.4-10.2) mg/dL Crossmatch See Detail Microbiology - Last 24 Hours (Table) 10/27/24 14:52 Blood Culture - Final Blood Assessment and Plan (1) Pneumonia Current Visit: Yes Status: Acute Code(s): J18.9 - PNEUMONIA, UNSPECIFIED ORGANISM SNOMED Code(s): 433253342 (2) Stage III pressure ulcer of sacral region Current Visit: No Status: Acute Code(s): L89.153 - PRESSURE ULCER OF SACRAL REGION, STAGE 3 SNOMED Code(s): 43497935696448 (3) Rash Current Visit: Yes Status: Acute Code(s): R21 - RASH AND OTHER NONSPECIFIC SKIN ERUPTION SNOMED Code(s): 244832070 Plan: 1patient presenting to the hospital with mental status changes decreased level of responsiveness and confusion which is likely multifactorial patient did have evidence of worsening kidney function and uremia could be contributing to it however patient has been on cefepime which can cause mental status changes and confusion. 2possible pneumonia on the chest x-ray keeping in mind the prison resident with confusion underlying aspiration and gram-negative pneumonia not entirely excluded has received adequate antibiotic for underlying pneumonia 3patient did have resolution of his fever and repeat culture so far negative, the patient has completed his course of daptomycin and seems to be doing well off antibiotic at this point Dictation was produced using [employer] dictation software. please excuse any grammatical, word or spelling errors. Time with Patient: Less than 30
[2024-11-02 00:31] LABS: Glucose,Whole Blood 89 mg/dL (70-110)
[2024-11-02 00:34] VITALS: RESP 16
--- NOTE | 2024-11-02 04:21 | P.PN ---
Subjective Progress Note Date: 11/01/24 This is a pleasant 63 years old male on 10/01 who was recently discharged from this facility for pressure ulcer stage II on IV vancomycin and cefepime. Currently he [facility] for being diaphoretic for 2 days with pressure ulcers on the buttock. Patient cannot provide information , He does not answer questions. He keeps his eye closed and resists opening them, he has a resting tremor, pill rolling tremor in his right hand, he has stiff both upper and lower extremities. Pupils are equal and reactive to light. He has stage II pressure ulcer with some pinkish discoloration, no purulent discharge He has right arm PICC line, he is on IV daptomycin from prison started on 10/16 till 10/27 Patient afebrile blood pressure stable WBCs 10.8, hemoglobin 11.5, sodium elevated 151, creatinine 3.9, previously was 1.7 and it was 2, I reviewed the chest x-ray myself .7. Chest x-ray: Airspace opacity projecting the spine correlate for pneumonia per radiologist, I reviewed chest x-ray myself, no significant consolidation, including symmetrical no pleural effusion. 10/19 Patient still confused, does not answer questions. He has pill rolling tremor, yesterday was in his right hand and today in his left hand, he has generalized stiffness most likely related to his Parkinson disease, patient has been confused for the last 3 to 4 days and he was not taking his Parkinson medication , the suspicion of seizure is low however he received Ativan yesterday. CT of the brain was negative neurology service consulted already Also has been treated for sepsis suspected for pressure ulcers also there is suspicion of aspiration pneumonia and currently has been covered with Zosyn. Looks like emergency room team consulted hospice, yesterday after rounding bedside nurse called me stating patient family requesting to talk to hospice team. We are going to talk to family and if they agreeable with going to place NG tube to start his Parkinson medication and other oral medication His hypernatremia and creatinine are trending up. NG tube placed can help also with water flushes He is continued on D5 W at 75 mL/h and dose increased today to 100 mL/h. 10/20 Patient still nonverbal Head of bed at 45 degree NG tube in place Patient is started on water flushes. Also resumed some of his oral medications through NG tube like metoprolol 25 mg as patient blood pressure and heart rate were elevated. No diarrhea. Nutrition consult called for tube feeding Family met with hospice team yesterday per their request, they opted to continue with medical management. No hospice 10/21/2024 Patient is seen in follow-up and mentation is back to baseline. Patient is mostly nonverbal although will say some things per nursing staff. Patient continues with NG tube at this time. Patient is high risk for aspiration and maintained on aspiration precautions. Patient continues on IV antibiotics per ID recommendation. Kidney functions were elevated although significantly improved with concerns of possible error in labs. Patient will need updated PT/OT therapy notes with plans on returning to [facility] once stabilized. 10/22/2024 Patient is seen in follow-up today with multiple consultations following. Patient is unable to have the MRI due to brain stimulator even if turned off per MRI department here. MRI was canceled. Neurology following and will discuss further with family as patient's family is requesting to know the amount of brain functionality patient has. Patient continues to be confused although is more alert today. Creatinine continues to worsen above 6 today and will discuss further with nephrology if there is discussion of possible renal replacement. 10/23/2024 Patient is seen in follow-up today with neurology and nephrology following. Patient continues to have worsening kidney functions up to 7 creatinine today. Nephrology following and discussed with family and placed consult to vascular for temp cath placement to initiate hemodialysis. Patient continues with NG tube as he is NPO and had been aspirating. Dietary consulted and recommending enteral nutrition. Patient does not have a PICC line. 10/24/2024 Patient evaluated in follow up on the medical floor. He has removed his own NG tube. Remains NPO due to signigicant and continued aspiration. He has had right groin temporary hemodialysis catheter placed. Nephrology following. Patient is currently scheduled to undergo hemodialysis. Patient continues on LR at 75 mls/hr. Remains on IV daptomycin. 10/25/2024 Patient evaluated on the medical floor. He is more awake and alert as compared to yesterday although he is not responding to questions. He is mumbling. He appears to be resting comfortably. He underwent fist session of hemodialysis yesterday and patient tolerated. He is making adequate urine output. BUN of 39 today and creatinine of 4.43. Magnesium 1.7. Hemoglobin 9.4. 10/26/2024 Patient is seen in follow-up today and is asleep although arousable, mostly nonverbal. Multiple consultations following including nephrology and patient scheduled to undergo hemodialysis today although it appears dialysis catheter is clotted and vascular surgery reconsulted for replacement. To discuss further with family regarding overall treatment plan. Patient has not eaten and is high risk for aspiration although not awake enough to tolerate any form of diet. Mentation not significantly improved from admission 10/27/2024 Patient is seen in follow-up today with multiple consultations following and received an exchanged dialysis catheter and is undergoing dialysis at this time. Mentation is slightly improved. Continues with NG tube. Will reconsult speech for swallow eval. Patient afebrile and is continued on IV antibiotics with ID following. 10/28/2024 Patient is seen in follow-up today much more awake and alert following commands and talking and answering questions appropriately. Multiple consultations including neurology, nephrology, infectious disease following. Patient maintained on hemodialysis showing improvements in kidney functions and creatinine is 4.9 today. Patient continues to make urine and will continue with [place] catheter for now. Patient will be reevaluated by speech today. Continue with current medication regimen including antibiotics. Patient family refusing hospice at this time and will need to discuss further with nephrology if patient will be continued on hemodialysis while outpatient. Plan will be for return to [facility] on discharge. 10/29/2024 Patient is seen in follow-up today with no acute overnight issues noted. Patient will be scheduled to receive hemodialysis today as kidney functions have slightly worsened and up above 5 and creatinine and will prepare for outpatient hemodialysis. Vascular surgery reconsulted for permacath placement and discussed with social work regarding discharge planning to [facility]. Patient will need to be arranged for outpatient hemodialysis. Patient tolerating pured diet and recommend to continue with aspiration precautions 10/30/2024 Patient is seen in follow-up today and will be receiving hemodialysis today. Plan is for permacath placement and Dr. Mcqueen has been reconsulted for this. Pending at this time. Plan will be for outpatient dialysis to be arranged and patient be returning to [facility]. Patient is continued on antibiotics with infectious disease following and recommend to continue with strict aspiration precautions. Supervision with meals and pured diet. 10/31/2024 Patient seen in follow-up this morning currently n.p.o. as patient is scheduled to undergo permacath placement with Dr. Mcqueen vascular surgery today. Plans will be for dialysis outpatient and will be returning to [facility]. Case management following and will likely occur early next week Saturday or Saturday. Patient to receive dialysis likely tomorrow per nephrology and kidney functions are improved and patient is making urine. Infectious disease following and patient will be monitored closely off antibiotic therapy.. Patient has received adequate antibiotics at this time. 11/01/2024 Patient is seen in follow-up today with nephrology following. Patient is maintained off antibiotics and continuing on local wound care to the sacral ulcer. Patient does have a permacath in the right groin and possibly receiving hemodialysis today. Hemoglobin low at 6.8 and will receive 1 unit of PRBC. Will discuss further with case management/social work regarding discharge planning as nursing staff reported that power of insole bottom filler would like to take the patient home as opposed to going to [facility]. Will discuss further with family as they most likely will not be able to care for patient 25/03 including getting him to and from dialysis 3 times weekly. Review of systems: Unable to assess as patient is mostly nonverbal, is answering questions appropriately and following commands. Physical exam: GENERAL: The patient is more awake and alert today although continues with confusion and mostly nonverbal, continued jerking movements likely related to his Parkinson disease, ill-appearing, elderly appearing HEENT: Pupils are round and equally reacting to light. EOMI. No scleral icterus. No conjunctival pallor. Normocephalic, atraumatic. No pharyngeal erythema. No thyromegaly. CARDIOVASCULAR: S1 and S2 muffled PULMONARY: Diminished breath sounds bilaterally otherwise chest is clear to auscultation, no wheezing , no crackles. ABDOMEN: Soft, nontender, nondistended, normoactive bowel sounds. No palpable organomegaly. MUSCULOSKELETAL: No joint swelling or deformity. EXTREMITIES: No cyanosis, clubbing, or pedal edema. NEUROLOGICAL: Continues to have occasional confusion, although more at baseline and answering questions appropriately and following commands. SKIN: No rashes. no petechiae. Assessment: Stage III sacral pressure ulcer with suspected infection, present on admission, blood cultures negative. Recent wound culture in September reveals pseudomonas aeruginosa and presumptive MRSA. aspiration pneumonia, present on admission Metabolic/toxic encephalopathy multifactorial due to uremia and aspiration pneumonia as well as underlying parkinsons/dementia. 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 Mentation is improved and at baseline Resume home medication, patient is on pured diet and recommend aspiration precautions and will continue Patient received permacath with Dr. Mcqueen vascular surgery as per nephrology patient will need hemodialysis outpatient Per nursing staff, family reported they will be taking the patient home and will not be returning to [facility]. Will await social work return on Saturday to discuss discharge planning as family will likely not be able to care for this patient while at home. Plan will likely be for returning to [facility] and will also requ erika dialysis in the outpatient setting 3 times weekly. Family would have extreme difficulty getting in and out of the car for this. Family have discussed the possibility of hospice previously although refusing and would like to continue with dialysis and current treatment plan. Patient has poor quality of life and hospice would be appropriate. Possible discharge planning in 24 hours. The impression and plan of care has been dictated by Maye Johnson, Nurse Practitioner as directed. Dr. Frank MD I have performed a history and examination and MDM of this patient, discussed the same with the dictator, and agree with the dictator's assessment and plan as written ,documented as a scribe. Based on total visit time, I have performed more than 50% of the visit. Objective - Vital Signs Vital signs: Vital Signs Temp 98 F 11/01/24 06:22 Pulse 63 11/01/24 06:22 Resp 16 11/01/24 06:22 BP 148/79 11/01/24 06:22 Pulse Ox 95 11/01/24 06:22 FiO2 Intake & Output 03/01/25 03/02/25 03/02/25 18:59 06:59 18:59 Intake Total 150 Output Total 500 500 Balance -350 -500 Intake: IV 50 Oral 100 Output: Urine 500 500 Other: Voiding Method Indwelling Catheter Indwelling Catheter # Bowel Movements 1 1 - Labs CBC & Chem 7: 11/01/24 07:18 11/01/24 07:18 Labs: Abnormal Lab Results - Last 24 Hours (Table) 11/01/24 11/01/24 Range/Units 07:18 07:18 RBC 2.41 L (4.30-5.90) m/uL Hgb 6.8 L* (13.0-17.5) gm/dL Hct 21.2 L (39.0-53.0) % BUN 21 H (9-20) mg/dL Creatinine 3.60 H (0.66-1.25) mg/dL Glucose 70 L (74-99) mg/dL Calcium 7.5 L (8.4-10.2) mg/dL
[2024-11-02 06:21] LABS: Glucose,Whole Blood 86 mg/dL (70-110)
[2024-11-02 07:07] LABS: Glucose,Whole Blood 81 mg/dL (70-110)
[2024-11-02 08:25] LABS: Blood Urea Nitrogen 18.9 mg/dL (9.0-27.0); Calcium 7.7 mg/dL (8.7-10.3); Carbon Dioxide 26.2 mmol/L (21.6-31.8); Chloride 108 mmol/L (96-109); Glucose 79 mg/dL (70-110); Magnesium 1.7 mg/dL (1.5-2.4); Potassium 3.7 mmol/L (3.5-5.5); Sodium 144 mmol/L (135-145)
--- NOTE | 2024-11-02 12:03 | P.PN ---
Subjective Patient seen for follow-up of ELIJAH, hemodialysis dependent. Started dialysis on 10/24/2024. Tunneled femoral catheter placed on 10/31/2024 Currently seen on hemodialysis. Tolerating treatment well. 24-hour urine output at 850 mL Objective - Vital Signs Vital signs: Vital Signs Temp 98.2 F 11/02/24 11:55 Pulse 73 11/02/24 11:55 Resp 16 11/02/24 11:55 BP 119/63 11/02/24 11:55 Pulse Ox 93 L 11/02/24 11:55 FiO2 Intake & Output 11/01/24 11/02/24 11/02/24 18:59 06:59 18:59 Intake Total 426 449 4888 Output Total 400 450 100 Balance 81 -210 1085 Intake: Oral 962 230 6151 Blood Product 281 Rc Pheresis As-3 Unit 281 [id number] Output: Urine 400 450 100 Uretheral ([place]) 100 Other: Voiding Method Indwelling Catheter Indwelling Catheter Indwelling Catheter - Exam Patient is sleeping but arousable. Examination of the heart S1 and S2 Examination of the lungs bilateral breath sounds are heard Examination of lower extremity shows no evidence of edema Indwelling Davenport catheter noted Moving 4 extremities. - Labs CBC & Chem 7: 11/01/24 07:18 11/02/24 05:21 Labs: Abnormal Lab Results - Last 24 Hours (Table) 11/01/24 11/02/24 Range/Units 09:13 05:21 Creatinine 4.2 H (0.6-1.5) mg/dL Est GFR (CKD-EPI) 15 L (>=60) BUN/Creatinine Ratio 4.50 L (12.00-20.00) Ratio Calcium 7.7 L (8.7-10.3) mg/dL Crossmatch See Detail Microbiology - Last 24 Hours (Table) 10/27/24 14:52 Blood Culture - Final Blood Assessment and Plan Assessment: 1. Acute kidney injury secondary to vancomycin toxicity versus hypotension induced ATN. UA significant for protein, blood, RBCs. Vancomycin trough elevated at 50.6 on 10/12, random vancomycin this visit 26.5. Ultrasound of ki dneys interpreted as severe right hydronephrosis with cortical thinning. This is chronic with a nonfunctioning right kidney. Started hemodialysis on 10/24/2024 for worsening renal function and altered mentation. 2. 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 3. Hypovolemic hypernatremia associated with acute kidney injury, Improved 4. Metabolic acidosis with anion gap likely from CKD, initial bicarb 13, improv ing 5. Sacral ulcer stage II on buttock 6. Parkinson's disease 7. HTN with CKD stage I Plan: Continue with outpatient hemodialysis Continue to monitor for recovery of renal function as outpatient.
[2024-11-02 12:35] LABS: Glucose,Whole Blood 107 mg/dL (70-110)
--- NOTE | 2024-11-02 15:58 | P.PN ---
Subjective Progress Note Date: 11/02/24 Principal diagnosis: Reason for follow-up is pneumonia infected sacral pressure ulcer Patient is a 63-year-old male with a past medical history significant for hypertension Parkinson's recent admission to the hospital for aspiration pneumonia and also have infected sacral pressure ulcer culture positive for MRSA and Pseudomonas treated with the cefepime vancomycin initially that was transitioned to daptomycin in the outpatient setting has been brought back to the hospital concerning for mental status changes unresponsiveness and there was a question of pneumonia. On today's evaluation that is 11/02/2024, patient has been afebrile, patient is breathing comfortably and is currently on room air, patient is awake but pleasantly confused not a very good historian. Patient did have a creatinine of 4.2 no CBC was done today blood culture has been negative Objective - Vital Signs Vital signs: Vital Signs Temp 98.2 F 11/02/24 11:55 Pulse 73 11/02/24 11:55 Resp 16 11/02/24 11:55 BP 119/63 11/02/24 11:55 Pulse Ox 93 L 11/02/24 11:55 FiO2 Intake & Output 11/01/24 11/02/24 11/02/24 18:59 06:59 18:59 Intake Total 480 828 3323 Output Total 400 450 100 Balance 81 -210 1085 Intake: Oral 537 044 5834 Blood Product 281 Rc Pheresis As-3 Unit 281 [id number] Output: Urine 400 450 100 Uretheral ([place]) 100 Other: Voiding Method Indwelling Catheter Indwelling Catheter Indwelling Catheter - Exam GENERAL DESCRIPTION: An elderly male lying in bed in no distress RESPIRATORY SYSTEM: Unlabored breathing , decreased breath sounds at bases HEART: S1 S2 regular rate and rhythm , ABDOMEN: Soft , no tenderness , - Labs CBC & Chem 7: 11/01/24 07:18 11/02/24 05:21 Labs: Abnormal Lab Results - Last 24 Hours (Table) 11/01/24 11/02/24 Range/Units 09:13 05:21 Creatinine 4.2 H (0.6-1.5) mg/dL Est GFR (CKD-EPI) 15 L (>=60) BUN/Creatinine Ratio 4.50 L (12.00-20.00) Ratio Calcium 7.7 L (8.7-10.3) mg/dL Crossmatch See Detail Microbiology - Last 24 Hours (Table) 10/27/24 14:52 Blood Culture - Final Blood Assessment and Plan (1) Pneumonia Current Visit: Yes Status: Acute Code(s): J18.9 - PNEUMONIA, UNSPECIFIED ORGANISM SNOMED Code(s): 811126194 (2) Stage III pressure ulcer of sacral region Current Visit: No Status: Acute Code(s): L89.153 - PRESSURE ULCER OF SACRAL REGION, STAGE 3 SNOMED Code(s): 70573171322976 (3) Rash Current Visit: Yes Status: Acute Code(s): R21 - RASH AND OTHER NONSPECIFIC SKIN ERUPTION SNOMED Code(s): 002229260 Plan: 1patient presenting to the hospital with mental status changes decreased level of responsiveness and confusion which is likely multifactorial patient did have evidence of worsening kidney function and uremia could be contributing to it however patient has been on cefepime which can cause mental status changes and confusion. 2possible pneumonia on the chest x-ray keeping in mind the correction resident with confusion underlying aspiration and gram-negative pneumonia not entirely excluded has received adequate antibiotic for underlying pneumonia 3patient did have resolution of his fever and repeat culture so far negative, Currently being monitored closely off antibiotic therapy seems to be doing well Dictation was produced using [employer] dictation software. please excuse any grammatical, word or spelling errors.
--- NOTE | 2024-11-02 16:06 | P.DS ---
Providers Date of admission: 10/17/24 22:36 Expected date of discharge: 11/02/24 Attending physician: Xiomara Manjarrez Consults: 10/18/24 11:36 Consult Physician Routine Consulting Provider: Alexandr Welch Consult Reason/Comments: pressure ulcer Do you want consulting provider notified?: Yes Consult Physician Routine Consulting Provider: Maia Garcia Consult Reason/Comments: yahir, hypernatremia Do you want consulting provider notified?: Yes 10/18/24 15:00 Consult Physician Routine Consulting Provider: Erwin Neal Consult Reason/Comments: AMS Do you want consulting provider notified?: Yes 10/23/24 12:56 Consult Physician Urgent Consulting Provider: Matt Mcqueen Consult Reason/Comments: temporary dialysis catheter insertion Do you want consulting provider notified?: Yes 10/26/24 07:53 Consult Physician Routine Consulting Provider: Arsenio Crane Consult Reason/Comments: hydronephrosis Do you want consulting provider notified?: Yes 10/29/24 11:45 Consult Physician Urgent Consulting Provider: Matt Mcqueen Consult Reason/Comments: needs permacath for o/p dialysis Do you want consulting provider notified?: Yes Primary care physician: Julius Rai [facility] Course: Final diagnosis Stage III sacral pressure ulcer with suspected infection, present on admission, blood cultures negative. Recent wound culture in September reveals pseudomonas aeruginosa and presumptive MRSA. aspiration pneumonia, present on admission Metabolic/toxic encephalopathy multifactorial due to uremia and aspiration pneumonia as well as underlying parkinsons/dementia. Improving Hypernatremia, improving Anemia, chronic, secondary to chronic kidney disease Hypokalemia, improved Acute kidney injury, likely ATN with worsening kidney function, started on hemodialysis per nephrology, patient will require outpatient hemodialysis which is being arranged Parkinson disease, patient has resting tremor in his right hand and generalized stiffness, he is not taking his medication with nonadherence to medication, has a stimulator Congenital UPJ with nonfunctioning right kidney and chronic right hydronephrosis, no need for any intervention per urologist recently evaluated him during last admission Hypertension Hyperlipidemia GI prophylaxis DVT prophylaxis No code Discharge disposition Patient is being [facility] in a stable condition [facility] Patient will follow-up with Dr. Rai in the outpatient setting upon discharge. Patient is to continue with hemodialysis as scheduled. Total time taken is greater than 35 minutes. Hospital course This is a 63-year-old male who was recently admitted with altered mental status with concerns of aspiration pneumonia being closely monitored with multiple consultations. Patient also noted to have a significant sacral pressure ulcer stage III with concerns of infection being followed by infectious disease along with wound care maintained on local wound care by cleansing the area daily and applying Santyl ointment and then wet to dry dressing of the coccyx/sacrum region and then covering with Optifoam. Patient has been maintained on IV antibiotics with infectious disease following and has received adequate antibiotic therapy and being monitored off antibiotics. Patient also with worsening kidney functions with chronic kidney disease and 1 solitary kidney requiring hemodialysis and has received a femoral catheter and will be continued 3 times per week. Patient to follow-up with nephrology outpatient. Patient has significant Parkinson's and has a resting tremor and also very anxious at times and likes to pull on tubing and recommend monitoring the femoral site closely for patient not to dislodge the site. Patient with many significant comorbidities including significant Parkinson's as mentioned previously was at [facility] previously although family was concerned with the care there. Patient is an extremely anxious person and fidgets a lot. Patient also was not eating and drinking and high risk for aspiration was reevaluated after mentation improved by speech recommending dysphagia pured diet with one-to-one supervision. Strongly recommend aspiration precautions with head of the bed elevated 30 to 45 degrees at all times and supervision with meals brief discussion was had regarding overall care and possible hospice as patient has clinically declined over the last few months requiring multiple hospitalizations. Power of securities attorney Shobha reported Chris would have wanted all measures done. Patient is no code. Patient has been cleared by consultations and has been accepted at [facility] and will be discharged today. Please refer to other consultation notes for further HPI. Patient is mostly nonverbal. Currently no reports of chest pain, shortness of breath, or palpitations. Patient is afebrile. No reports of nausea or vomiting and patient is tolerating diet. Patient will be going to [facility] today. Extremely high risk for readmissions. Physical exam: Gen: This is a 63-year-old male who is awake, alert and oriented x 1-2 baseline, well-developed, elderly appearing, ill-appearing HEENT: Head is atraumatic, normocephalic. Pupils equal, round. Sclerae is anicteric. NECK: Supple. No JVD. No lymphadenopathy. No thyromegaly. LUNGS: Diminished breath sounds bilaterally otherwise clear to auscultation. No wheezes or rhonchi. No intercostal retractions. HEART: Regular rate and rhythm. No murmur. ABDOMEN: Soft. Bowel sounds are present. No masses. No tenderness. EXTREMITIES: No pedal edema. No calf tenderness. NEUROLOGICAL: Patient is awake, alert and oriented x 12. Cranial nerves 2 through 12 are grossly intact. Diffusely weak, mostly bedbound Please refer to medication reconciliation sheet for a list of medications. The impression and plan of care has been dictated by Maye Johnson, Nurse Practitioner as directed. Dr. Frank MD I have performed a history and examination and MDM of this patient, discussed the same with the dictator, and agree with the dictator's assessment and plan as written ,documented as a scribe. Based on total visit time, I have performed more than 50% of the visit. Patient Condition at Discharge: Stable Plan - Discharge Summary Discharge Rx Participant: No New Discharge Prescriptions: New Darbepoetin Greg [Aranesp] 40 mcg SQ Q7D each Heparin Sodium,Porcine (1 ml) [Heparin Sodium] 5,000 unit SQ Q12HR each Collagenase [Santyl Ointment] 1 applic TOPICAL DAILY each Continue Acetaminophen Tab [Tylenol] 650 mg PO Q6HR PRN PRN Reason: Fever Melatonin 5 mg PO HS@2100 LORazepam [Ativan] 0.5 mg PO Q8H PRN #4 tab PRN Reason: Anxiety Discontinued HYDROcodone/APAP [[place] Elixir 7.5-325Mg/15Ml] 10 ml PO Q6H PRN PRN Reason: Pain Atorvastatin [Lipitor] 20 mg PO HS@2100 Cholestyramine (with Sugar) [Questran Packet] 4 gm PO BID@0800,1700 Heparin Sodium,Porcine (1 ml) [Heparin Sodium] 5,000 unit SQ Q12HR@0800,2100 Cefepime [Maxipime] 2 gm IVPB Q8HR@0600,1400,2200 DAPTOmycin 350 mg IV DAILY@0800 No Action atenoloL [Tenormin] 25 mg PO DAILY@0600 Ensure Enlive 237 ml PO TID@0800,1200,1700 Liquacel 30 ml PO DAILY@0800 Carbidopa-Levodopa 25-100 mg [Sinemet 25-100 mg] 1 tab PO AC-TID Na Phos,M-B/Na Phos,Di-Ba [Fleet Adult] 133 ml RECTAL DAILY PRN PRN Reason: Constipation Loperamide [Imodium] 2 mg PO QID PRN cap PRN Reason: Diarrhea bisacodyL [Dulcolax] 10 mg RECTAL DAILY PRN PRN Reason: Constipation Ipratropium-Albuterol Nebulize [Duoneb 0.5 mg-3 mg/3 ml Soln] 3 ml INHALATION RT-Q6H Magic Cup 1 dose PO DAILY@1200 Magnesium Hydroxide [Milk of Magnesia Concentrate] 7,200 mg PO DAILY PRN PRN Reason: Constipation Discharge Medication List atenoloL [Tenormin] 25 mg PO DAILY@0600 08/31/24 [History] Loperamide [Imodium] 2 mg PO QID PRN cap 09/16/24 [Rx] Carbidopa-Levodopa 25-100 mg [Sinemet 25-100 mg] 1 tab PO AC-TID 09/30/24 [History] Ensure Enlive 237 ml PO TID@0800,1200,1700 09/30/24 [History] Ipratropium-Albuterol Nebulize [Duoneb 0.5 mg-3 mg/3 ml Soln] 3 ml INHALATION RT-Q6H 09/30/24 [History] Liquacel 30 ml PO DAILY@0800 09/30/24 [History] Magic Cup 1 dose PO DAILY@1200 09/30/24 [History] Magnesium Hydroxide [Milk of Magnesia Concentrate] 7,200 mg PO DAILY PRN 09/30/24 [History] Na Phos,M-B/Na Phos,Di-Ba [Fleet Adult] 133 ml RECTAL DAILY PRN 09/30/24 [History] bisacodyL [Dulcolax] 10 mg RECTAL DAILY PRN 09/30/24 [History] Acetaminophen Tab [Tylenol] 650 mg PO Q6HR PRN 10/18/24 [History] Melatonin 5 mg PO HS@2100 10/18/24 [History] Collagenase [Santyl Ointment] 1 applic TOPICAL DAILY each 11/02/24 [Rx] Darbepoetin Greg [Aranesp] 40 mcg SQ Q7D each 11/02/24 [Rx] Heparin Sodium,Porcine (1 ml) [Heparin Sodium] 5,000 unit SQ Q12HR each 11/02/24 [Rx] LORazepam [Ativan] 0.5 mg PO Q8H PRN #4 tab 11/02/24 [Rx] Follow up Appointment(s)/Referral(s): Julius Rai MD [Primary Care Provider] - 1-2 days
[2024-11-02 17:20] LABS: Glucose,Whole Blood 139 mg/dL (70-110)
[2024-11-02 17:35] VITALS: BP 113/57; PULSE 67; TEMP 96.7
--- NOTE | 2024-11-03 12:24 | P.PN ---
Subjective Progress Note Date: 11/02/24 Patient was seen for follow-up. Patient is fully alert and awake. His mentation has much improved. He continues to be confused. Objective - Vital Signs Vital signs: Vital Signs Temp 98.2 F 11/02/24 11:55 Pulse 73 11/02/24 11:55 Resp 16 11/02/24 11:55 BP 119/63 11/02/24 11:55 Pulse Ox 93 L 11/02/24 11:55 FiO2 Intake & Output 11/01/24 11/02/24 11/02/24 18:59 06:59 18:59 Intake Total 325 385 9411 Output Total 400 450 101 Balance 81 -210 2644 Weight 78.925 kg Intake: Oral 594 112 4575 Blood Product 281 Rc Pheresis As-3 Unit 281 [id number] Output: Urine 400 450 100 Uretheral ([place]) 100 Urine/Stool Mix 1 Other: Voiding Method Indwelling Catheter Indwelling Catheter Indwelling Catheter # Voids 4 - Exam Patient is alert and awake. He could not tell the current month or the year. Then he said it is a 28-year. He could not tell what city or state he lives in although knows name of the current president Mr. Durant. 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 Tone has improved, but still increased at least moderately. - Labs CBC & Chem 7: 11/01/24 07:18 11/02/24 05:21 Labs: Abnormal Lab Results - Last 24 Hours (Table) 11/02/24 Range/Units 05:21 Creatinine 4.2 H (0.6-1.5) mg/dL Est GFR (CKD-EPI) 15 L (>=60) BUN/Creatinine Ratio 4.50 L (12.00-20.00) Ratio Calcium 7.7 L (8.7-10.3) mg/dL Microbiology - Last 24 Hours (Table) 10/27/24 14:52 Blood Culture - Final Blood Assessment and Plan Assessment: * Altered mental status, likely due to toxic metabolic encephalopathy * Rule out sepsis/pneumonia * Stage III pressure ulcer of sacral region * Failure to thrive * Hypernatremia, resolved * Acute kidney injury, likely due to ATN, (vancomycin toxicity versus hypotension per nephrology) renal functions, worsening, with creatinine 7.2. Patient started on hemodialysis today. * Advanced Parkinson's, history of DBS placement * Dementia, severe degree * Hydronephrosis with cortical thinning Plan: * Patient has advanced dementia and advanced Parkinson's. Patient superimposed metabolic encephalopathy has improved. * Initial EEG 10/20/2024, which was abnormal due to background slowing of moderate to severe degree. This is suggestive of generalized cerebral dysfunction as can be seen with toxic metabolic encephalopathy or related to diffuse structural brain abnormality. Clinical correlation is recommended. Intermittent myogenic artifacts were seen in the right or left or bitemporal region during the study from underlying tremor. No epileptiform activity was seen. * Repeat EEG 10/26/2024 was abnormal due to background slowing, suggestive of moderate to severe encephalopathy. No epileptiform activity was seen. * Treatment of various metabolic/medical conditions (as mentioned above) as per IM and other specialties on board. * Patient has completed course of antibiotics. ID on board. * Patient currently on Sinemet 25/100, 3 times daily. * Patient has been started on hemodialysis. * Neurologically clear for discharge. For any other medical/metabolic conditions, we will defer to IM. * Recommend follow-up with his neurologist outpatient.
== END 2024-11-02 18:34 | DRG 177 ==
LOC: EC 18:59 → 4SSUR 22:36 → 5NMEDONC 10-18 02:52
PROVIDERS: ADMIT Hospitalist; ATTEND Hospitalist
PROC: 0D9670Z Drainage of Stomach with Drainage Device, Via Natural or Artificial Opening (ICD-10-PCS; 2024-10-19)
PROC: 3E0G76Z Introduction of Nutritional Substance into Upper GI, Via Natural or Artificial Opening (ICD-10-PCS; 2024-10-20)
PROC: 5A1D70Z Performance of Urinary Filtration, Intermittent, Less than 6 Hours Per Day (ICD-10-PCS; 2024-10-24)
PROC: 06HY33Z Insertion of Infusion Device into Lower Vein, Percutaneous Approach (ICD-10-PCS; principal; 2024-10-24 08:30)
PROC: 06PY33Z Removal of Infusion Device from Lower Vein, Percutaneous Approach (ICD-10-PCS; 2024-10-26)
PROC: 06HM33Z Insertion of Infusion Device into Right Femoral Vein, Percutaneous Approach (ICD-10-PCS; 2024-10-26)
PROC: 06PY33Z Removal of Infusion Device from Lower Vein, Percutaneous Approach (ICD-10-PCS; 2024-10-31)
PROC: 0JH63XZ Insertion of Tunneled Vascular Access Device into Chest Subcutaneous Tissue and Fascia, Percutaneous Approach (ICD-10-PCS; 2024-10-31)
PROC: 06HM33Z Insertion of Infusion Device into Right Femoral Vein, Percutaneous Approach (ICD-10-PCS; 2024-10-31)
PROC: 6A550Z0 Pheresis of Erythrocytes, Single (ICD-10-PCS; 2024-11-01)
DX: J69.0 Pneumonitis due to inhalation of food and vomit (principal); G92.8 Other toxic encephalopathy; N17.0 Acute kidney failure with tubular necrosis; L89.153 Pressure ulcer of sacral region, stage 3; E87.0 Hyperosmolality and hypernatremia; E87.20 Acidosis, unspecified; D62 Acute posthemorrhagic anemia; Z66 Do not resuscitate; B96.5 Pseudomonas (aeruginosa) (mallei) (pseudomallei) as the cause of diseases classified elsewhere; D63.1 Anemia in chronic kidney disease; R62.7 Adult failure to thrive; G20.A1 Parkinson's disease without dyskinesia, without mention of fluctuations; F02.C0 Dementia in other diseases classified elsewhere, severe, without behavioral disturbance, psychotic disturbance, mood disturbance, and anxiety; I12.9 Hypertensive chronic kidney disease with stage 1 through stage 4 chronic kidney disease, or unspecified chronic kidney disease; Z95.828 Presence of other vascular implants and grafts; Q62.39 Other obstructive defects of renal pelvis and ureter; T82.41XA Breakdown (mechanical) of vascular dialysis catheter, initial encounter; N13.30 Unspecified hydronephrosis; E87.5 Hyperkalemia; G25.2 Other specified forms of tremor; B95.62 Methicillin resistant Staphylococcus aureus infection as the cause of diseases classified elsewhere; T50.996A Underdosing of other drugs, medicaments and biological substances, initial encounter; E78.5 Hyperlipidemia, unspecified; E87.6 Hypokalemia; N18.1 Chronic kidney disease, stage 1; E86.1 Hypovolemia; M24.561 Contracture, right knee; T36.8X5A Adverse effect of other systemic antibiotics, initial encounter; I95.9 Hypotension, unspecified; R21 Rash and other nonspecific skin eruption; R32 Unspecified urinary incontinence; Y71.1 Therapeutic (nonsurgical) and rehabilitative cardiovascular devices associated with adverse incidents; Z68.28 Body mass index [BMI] 28.0-28.9, adult; Z91.130 Patient's unintentional underdosing of medication regimen due to age-related debility; Z74.01 Bed confinement status; Z79.899 Other long term (current) drug therapy; Z87.891 Personal history of nicotine dependence; Z86.14 Personal history of Methicillin resistant Staphylococcus aureus infection; Z97.8 Presence of other specified devices
CPT/HCPCS: 36415; 36556; 36580; 36581; 51798; 70450; 71045; 74018; 76770; 80048; 80051; 80053; 80202; 81001; 83605; 83735; 84100; 84145; 84295; 85025; 86140; 86706; 86850; 86900; 86901; 86920; 87040; 87340; 87636; 90935; 93005; 95816; 96361; 96365; 96366; 96367; 99285

== ENCOUNTER 2024-11-04 13:30 | Emergency (ER) | payer MEDICARE, OTHER ==
--- NOTE | 2024-11-04 13:47 | ED ---
General Adult HPI - General Chief complaint: Recheck/Abnormal Lab/Rx Stated complaint: Dialysis Time Seen by Provider: 11/04/24 13:37 Source: patient, RN notes reviewed Mode of arrival: ambulatory Limitations: no limitations - History of Present Illness Initial comments: 63-year-old male presents to the emergency department from [facility] for evaluation. The patient was recently discharged to [facility]. He was supposed to start outpatient dialysis. [facility] was unsure when he was supposed to go and therefore he was not able to receive dialysis. He was presented today because of this. He denies any complaints at this time. - Related Data Home Medications Medication Instructions Recorded Confirmed atenoloL [Tenormin] 25 mg PO DAILY@0600 08/31/24 10/18/24 Carbidopa-Levodopa 25-100 mg 1 tab PO AC-TID 09/30/24 10/18/24 [Sinemet 25-100 mg] Ensure Enlive 237 ml PO TID@0800,1200,1700 09/30/24 10/18/24 Ipratropium-Albuterol Nebulize 3 ml INHALATION RT-Q6H 09/30/24 10/18/24 [Duoneb 0.5 mg-3 mg/3 ml Soln] Liquacel 30 ml PO DAILY@0800 09/30/24 10/18/24 Magic Cup 1 dose PO DAILY@1200 09/30/24 10/18/24 Magnesium Hydroxide [Milk of 7,200 mg PO DAILY PRN 09/30/24 10/18/24 Magnesia Concentrate] Na Phos,M-B/Na Phos,Di-Ba [Fleet 133 ml RECTAL DAILY PRN 09/30/24 10/18/24 Adult] bisacodyL [Dulcolax] 10 mg RECTAL DAILY PRN 09/30/24 10/18/24 Acetaminophen Tab [Tylenol] 650 mg PO Q6HR PRN 10/18/24 10/18/24 Melatonin 5 mg PO HS@2100 10/18/24 10/18/24 Previous Rx's Medication Instructions Recorded Loperamide [Imodium] 2 mg PO QID PRN cap 09/16/24 Collagenase [Santyl Ointment] 1 applic TOPICAL DAILY each 11/02/24 Darbepoetin Greg [Aranesp] 40 mcg SQ Q7D each 11/02/24 Heparin Sodium,Porcine (1 ml) 5,000 unit SQ Q12HR each 11/02/24 [Heparin Sodium] LORazepam [Ativan] 0.5 mg PO Q8H PRN #4 tab 11/02/24 Allergies Allergy/AdvReac Type Severity Reaction Status Date / Time No Known Allergies Allergy Verified 11/04/24 13:37 Review of Systems ROS Statement: Those systems with pertinent positive or pertinent negative responses have been documented in the HPI. ROS Other: All systems not noted in ROS Statement are negative. Past Medical History Past Medical History: Hypertension Additional Past Medical History / Comment(s): parkinsons DNR-10/17/2024, Dialysis. History of Any Multi-Drug Resistant Organisms: MRSA Date of last positivie culture/infection: 09/30/24 MDRO Source:: buttock Past Surgical History: No Surgical Hx Reported Additional Past Surgical History / Comment(s): deep brain stimulator Past Anesthesia/Blood Transfusion Reactions: No Reported Reaction Past Psychological History: No Psychological Hx Reported Smoking Status: Former smoker Past Alcohol Use History: Occasional Past Drug Use History: Marijuana - Past Family History Father Family Medical History: Unable to Obtain Mother Family Medical History: Unable to Obtain General Exam Limitations: no limitations General appearance: alert, in no apparent distress Head exam: Present: atraumatic, normocephalic, normal inspection Eye exam: Present: normal appearance, PERRL, EOMI. Absent: scleral icterus, conjunctival injection, periorbital swelling ENT exam: Present: normal exam, mucous membranes moist Respiratory exam: Present: normal lung sounds bilaterally. Absent: respiratory distress, wheezes, rales, rhonchi, stridor Cardiovascular Exam: Present: regular rate, normal rhythm, normal heart sounds. Absent: systolic murmur, diastolic murmur, rubs, gallop, clicks GI/Abdominal exam: Present: soft. Absent: distended, tenderness, guarding, rebound, rigid Extremities exam: Present: normal inspection, full ROM, normal capillary refill. Absent: tenderness, pedal edema, joint swelling, calf tenderness Neurological exam: Present: alert Psychiatric exam: Present: normal affect, normal mood Skin exam: Present: warm, dry, intact, normal color. Absent: rash Course Vital Signs 11/04/24 11/04/24 13:32 16:12 Temperature 98.1 F Pulse Rate 82 88 Respiratory 18 19 Rate Blood Pressure 127/73 152/85 O2 Sat by Pulse 94 L 93 L Oximetry Medical Decision Making - Medical Decision Making Was pt. sent in by a medical professional or institution (DAVID Martin, [facility], urgent care, hospital, or detention...) When possible be specific @ -[No] Did you speak to anyone other than the patient for history (EMS, parent, family, police, friend...)? What history was obtained from this source @ -[No] Did you review nursing and triage notes (agree or disagree)? Why? @ -[I reviewed and agree with nursing and triage notes] Were old charts reviewed (outside hosp., previous admission, EMS record, old E KG, old radiological studies, urgent care reports/EKG's, detention records)? Report findings @ -[No old charts were reviewed] Differential Diagnosis (chest pain, altered mental status, abdominal pain women, abdominal pain men, vaginal bleeding, weakness, fever, dyspnea, syncope, headache, dizziness, GI bleed, back pain, seizure, CVA, palpatations, mental health, musculoskeletal)? @ -[Hyperkalemia, renal failure, acidosis, respiratory distress, this this is not all-inclusive] EKG interpreted by me (3pts min.). @ -[None] X-rays interpreted by me (1pt min.). @ -[None done] CT interpreted by me (1pt min.). @ -[None done] U/S interpreted by me (1pt. min.). @ -[None done] What testing was considered but not performed or refused? (CT, X-rays, U/S, labs)? Why? @ -[None] What meds were considered but not given or refused? Why? @ -[None] Did you discuss the management of the patient with other professionals (professionals i.e. DAVID Martin, [facility], lab, RT, psych nurse, social services assistant, director supply, teacher, armor officer, case advocate)? Give summary @ -[No] Was smoking cessation discussed for >3mins.? @ -[No] Was critical care preformed (if so, how long)? @ -[No] Were there social determinants of health that impacted care today? How? (Homelessness, low income, unemployed, alcoholism, drug addiction, transportation, low edu. Level, literacy, decrease access to med. care, senior living, rehab)? @ -[No] Was there de-escalation of care discussed even if they declined (Discuss DNR or withdrawal of care, Hospice)? DNR status @ -[No] What co-morbidities impacted this encounter? (DM, HTN, Smoking, COPD, CAD, Cancer, CVA, ARF, Chemo, Hep., AIDS, mental health diagnosis, sleep apnea, morbid obesity)? @ -[None] Was patient admitted / discharged? Hospital course, mention meds given and route, prescriptions, significant lab abnormalities, going to OR and other pertinent info. @ -[Patient presented the emergency department for missed dialysis session. Patient is altered at baseline. Laboratory studies were obtained.There is no significant leukocytosis, hemoglobin 7.5; potassium was 3.4. Creatinine 3.29. The patient does not necessitate emergent dialysis] Undiagnosed new problem with uncertain prognosis? @ -[No] Drug Therapy requiring intensive monitoring for toxicity (Heparin, Nitro, Insulin, Cardizem)? @ -[No] Were any procedures done? @ -[No] Diagnosis/symptom? @ -[default] Acute, or Chronic, or Acute on Chronic? @ -[default] Uncomplicated (without systemic symptoms) or Complicated (systemic symptoms)? @ -[default] Side effects of treatment? @ -[No] Exacerbation, Progression, or Severe Exacerbation? @ -[No] Poses a threat to life or bodily function? How? (Chest pain, [place], [place], pneumonia, PE, COPD, DKA, ARF, appy, cholecystitis, CVA, Diverticulitis, Homicidal, Suicidal, threat to staff... and all critical care pts) @ -[No] - Lab Data Result diagrams: 11/04/24 14:03 11/04/24 14:03 Lab Results 11/04/24 11/04/24 Range/Units 14:03 14:03 WBC 7.1 (3.8-10.6) k/uL RBC 2.66 L (4.30-5.90) m/uL Hgb 7.5 L (13.0-17.5) gm/dL Hct 23.1 L (39.0-53.0) % MCV 87.1 (80.0-100.0) fL MCH 28.4 (25.0-35.0) pg MCHC 32.6 (31.0-37.0) g/dL RDW 14.3 (11.5-15.5) % Plt Count 228 (150-450) k/uL MPV 7.1 Neutrophils % 71 % Lymphocytes % 18 % Monocytes % 6 % Eosinophils % 4 % Basophils % 0 % Neutrophils # 5.0 (1.3-7.7) k/uL Lymphocytes # 1.3 (1.0-4.8) k/uL Monocytes # 0.5 (0-1.0) k/uL Eosinophils # 0.3 (0-0.7) k/uL Basophils # 0.0 (0-0.2) k/uL Sodium 136 L (137-145) mmol/L Potassium 3.4 L (3.5-5.1) mmol/L Chloride 103 (98-107) mmol/L Carbon Dioxide 32 H (22-30) mmol/L Anion Gap 1 mmol/L BUN 14 (9-20) mg/dL Creatinine 3.29 H (0.66-1.25) mg/dL Est GFR (CKD-EPI)AfAm 22 (>60 ml/min/1.73 sqM) Est GFR (CKD-EPI)NonAf 19 (>60 ml/min/1.73 sqM) Glucose 90 (74-99) mg/dL Calcium 7.9 L (8.4-10.2) mg/dL Magnesium 1.7 (1.6-2.3) mg/dL Total Bilirubin 0.6 (0.2-1.3) mg/dL AST 19 (17-59) U/L ALT <6 (4-49) U/L Alkaline Phosphatase 71 (38-126) U/L Total Protein 5.0 L (6.3-8.2) g/dL Albumin 2.5 L (3.5-5.0) g/dL Disposition Clinical Impression: Dialysis patient Condition: Stable Is patient prescribed a controlled substance at d/c from ED?: No Referrals: Soumya Rosales DO [Primary Care Provider] - 1-2 days
[2024-11-04 14:12] LABS: Basophils % (A) 0 %; Eosinophils # (A) 0.3 k/uL (0-0.7); Eosinophils % (A) 4 %; HCT 23.1 % (39.0-53.0); HGB 7.5 gm/dL (13.0-17.5); Lymphocytes # (A) 1.3 k/uL (1.0-4.8); Lymphocytes % (A) 18 %; MCH 28.4 pg (25.0-35.0); MCHC 32.6 g/dL (31.0-37.0); MCV 87.1 fL (80.0-100.0); Mean Platelet Volume 7.1; Monocytes # (A) 0.5 k/uL (0-1.0); Monocytes % (A) 6 %; Neutrophils % (A) 71 %; Platelet Count 228 k/uL (150-450); RBC 2.66 m/uL (4.30-5.90); RDW 14.3 % (11.5-15.5); WBC 7.1 k/uL (3.8-10.6)
[2024-11-04 14:21] LABS: ALT <6 U/L (4-49); AST 19 U/L (17-59); African American GFR (CKD) 22 (>60 ml/min/1.73 sqM); Albumin 2.5 g/dL (3.5-5.0); Alkaline Phosphatase 71 U/L (38-126); Anion Gap 1 mmol/L; Blood Urea Nitrogen 14 mg/dL (9-20); Calcium 7.9 mg/dL (8.4-10.2); Carbon Dioxide 32 mmol/L (22-30); Chloride 103 mmol/L (98-107); Glucose 90 mg/dL (74-99); Magnesium 1.7 mg/dL (1.6-2.3); Non-African American GFR(CKD) 19 (>60 ml/min/1.73 sqM); Potassium 3.4 mmol/L (3.5-5.1); Sodium 136 mmol/L (137-145); Total Bilirubin 0.6 mg/dL (0.2-1.3)
[2024-11-04] MEDS: POTASSIUM CHLORIDE ER 10 MEQ TAB.ER.PRT PO STA (17:44)
[2024-11-04 17:54] VITALS: BP 136/82; PULSE 86; RESP 18; TEMP 98.2
== END 2024-11-04 18:40 ==
LOC: EC 13:30
DX: Z99.2 Dependence on renal dialysis (principal); Z87.891 Personal history of nicotine dependence
CPT/HCPCS: 36415; 80053; 83735; 85025; 99283